=== PATIENT | male | born 1935 | race Caucasian/White ===

== ENCOUNTER 2022-06-17 09:19 | Emergency (ER) | payer MEDICARE, BC, SELFPAY ==
[2022-06-17 09:20] VITALS: BP 152/89; PULSE 118; RESP 14; TEMP 35.9; O2SAT 97; BMI 24.2
--- NOTE | 2022-06-17 09:41 | EKG12_ITS ---
Test Reason : PALP Blood Pressure : / mmHG Vent. Rate : 115 BPM Atrial Rate : 000 BPM P-R Int : 000 ms QRS Dur : 110 ms QT Int : 284 ms P-R-T Axes : 000 089 -44 degrees QTc Int : 392 ms Atrial fibrillation with rapid ventricular response Incomplete right bundle branch block Possible Inferior infarct , age undetermined Abnormal ECG Confirmed by RUY CORONA, CARLOS ([id number]), editor managing newspaper NARENDRA HYMAN ([id number]) on 06/22/2022 11:55:33 AM Referred By: Confirmed By:CARLOS REDMOND MD
[2022-06-17 10:18] LABS: Absolute Lymphocyte Count 0.65 X10^3/uL (0.83-4.51); Absolute Neutrophil Count 5.5 X10^3/uL (2.0-7.7); Basophil# 0.05 X10^3/uL; Basophil% 0.8 % (0-1); Eosinophil# 0.11 X10^3/uL; Eosinophils% 1.7 % (0-5); Hematocrit 38.5 % (40-54); Hemoglobin 12.7 g/dL (13.0-16.5); Lymphocyte # 0.65 X10^3/ul (0.83-4.51); Lymphocyte % 9.8 % (19-41); Mean Corpuscular Hgb 30.8 pg (27.0-32.0); Mean Corpuscular Volume 93.2 fL (80-94); Mean Platelet Vol. 11.4 fl (6.2-12.0); Monocyte# 0.32 X10^3/uL; Monocyte% 4.8 % (0-10); NRBC Flagged by Analyzer 0 % (0-5); Neutrophil # 5.47 X10^3/uL (2.7-7.7); Neutrophil % 82.4 % (47-70); Platelet Count 241 K/mm3 (150-450); RBC Distribution Width CV 15.9 % (11.6-14.6); RBC Distribution Width SD 54.8 fl (35.1-43.9); Red Blood Count 4.13 M/mm3 (4.6-6.2); White Blood Count 6.6 K/mm3 (4.4-11.0)
--- NOTE | 2022-06-17 10:23 | RAD_ITS ---
HISTORY: Orthopnea, pedal edema and bibasilar rales. TECHNIQUE: XR Chest 2 Views. COMPARISON: None. FINDINGS: CARDIOMEDIASTINAL BORDERS: Cardiac silhouette within normal limits in size. Mediastinal contour unremarkable with calcification of the aortic knob. LUNGS: Mild linear opacities in the left mid and bilateral lower lungs. PLEURA: No pleural effusion or pneumothorax seen. OSSEOUS STRUCTURES: Degenerative change with mild dextrocurvature. RAD/Chest PA and Lateral IMPRESSION: Mild linear opacities in the lung bases, likely scarring. Electronically Signed: Brittany Araiza MD at 10:37 EDT ,
--- NOTE | 2022-06-17 10:32 | EX.ED.DYSGE1 ---
HPI History of Present Illness Chief Complaint: Palpitations [facility] Medical History (Updated 06/17/22 @ 11:[address] Gagan Alfaro MD) Colitis HLD (hyperlipidemia) HTN (hypertension) Home Medications Ritoxan 05/27/13 [History Last Taken Unknown] amoxicillin 500 mg capsule 05/27/13 [History Last Taken Unknown] amoxicillin 500 mg tablet 500 mg PO Q8H #30 tabs 05/27/13 [Rx Last Taken Unknown] hydrochlorothiazide 25 mg tablet 25 mg PO DAILY 05/27/13 [History Last Taken Unknown] hydrocodone-acetaminophen 5-325mg 5mg-325mg 1 - 2 tab PO Q4H PRN PRN Pain ##20 05/27/13 [Rx Last Taken Unknown] hydroxychloroquine 200 mg tablet 200 mg PO DAILYCM 05/27/13 [History Last Taken Unknown] lisinopril 10 mg tablet 10 mg PO DAILY 05/27/13 [History Last Taken Unknown] lcnnrvbj-rdi-qphra acid 0.4 mg-lycopene 300 mcg-lutein 250 mcg tablet (Centrum Silver) 1 ea PO 05/27/13 [History Last Taken Unknown] naproxen 500 mg tablet 500 mg PO PRN PRN Pain 05/27/13 [History Last Taken Unknown] sulfasalazine 500 mg tablet 1,000 mg PO DAILY 05/27/13 [History Last Taken Unknown] apixaban 5 mg tablet (Eliquis) 5 mg PO BID #60 tabs 06/17/22 [Rx Last Taken Unknown] metoprolol tartrate 25 mg tablet 25 mg PO BID #60 tabs 06/17/22 [Rx Last Taken Unknown] Allergy/AdvReac Type Severity Reaction Status Date / Time etanercept [From Enbrel] AdvReac Rash Verified 06/17/22 09:20 Surgical History (Updated 06/17/22 @ 10:39 by Jordyn Silveira) History of bilateral knee replacement Social History Smoking Status: Former smoker EXAM Physical Exam Const Vital Signs: 06/17/22 09:20 06/17/22 10:37 06/17/22 10:37 Temperature 96.6 F L Temperature Source Temporal Pulse Rate 118 H 101 H Respiratory Rate 14 16 Respiratory Effort Normal Non-Labored Blood Pressure 152/89 H 129/76 H Blood Pressure Mean 110 93 Pulse Ox 97 95 Oxygen Delivery Method Room Air Room Air 06/17/22 11:01 Temperature Temperature Source Pulse Rate 92 Respiratory Rate 16 Respiratory Effort Blood Pressure 121/80 H Blood Pressure Mean 93 Pulse Ox 93 Oxygen Delivery Method Room Air MDM MDM History & Record Review Discussion w/independent historian: Patient and Family Lab Data Attestation: I reviewed the patient's lab results. Lab results narrative: Hemoglobin is slightly below normal. CB C otherwise unremarkable Labs: Laboratory Results - last 24 hr 06/17/22 06/17/22 06/17/22 10:10 10:10 10:10 WBC 6.6 RBC 4.13 L Hgb 12.7 L Hct 38.5 L MCV 93.2 MCH 30.8 MCHC 33.0 RDW Std Deviation 54.8 H RDW Coeff of Dominick 15.9 H Plt Count 241 MPV 11.4 Immature Gran % (Auto) 0.500 Neut % (Auto) 82.4 H Lymph % (Auto) 9.8 L [place] % (Auto) 4.8 Eos % (Auto) 1.7 Baso % (Auto) 0.8 Absolute Neuts (auto) 5.5 Absolute Lymphs (auto) 0.65 L Nucleated RBC % 0 Sodium 139 Potassium 3.9 Chloride 109 H Carbon Dioxide 26.0 Anion Gap 4 L BUN 27 H Creatinine 1.28 Estim Creat Clear Calc 46.31 Est GFR (MDRD) Af Amer 69 Est GFR (MDRD) Non-Af 57 L BUN/Creatinine Ratio 21.1 H Glucose 142 H Calcium 8.8 Troponin I High Sens 22 B-Natriuretic Peptide 188.0 H Radiography Chest X-Ray - ED: 1 View and Read by ED Physician (Cardiac silhouette size unremarkable. Lung parenchyma is unremarkable. Perihilar regions unremarkable. Osseous structures are unremarkable. This was independent reviewed interpreted by me at 1031.) Diagnostic Testing: Clinical Impression(s) from Imaging Studies Chest X-Ray 06/17/22 10:23 IMPRESSION: Mild linear opacities in the lung bases, likely scarring. Electronically Signed: Brittany Araiza MD at 10:37 EDT , Management Discussion w/another healthcare provider: Corporate Quality Assurance Manager (Discussed case with Dr. Cerda. Agrees with treatment of Eliquis metoprolol and office will contact for appointment.) Treatment and Re-Evaluation :: Patient was reassessed at 1124. Heart rate is 84. Monitor reveals atrial fibrillation. There is no ectopy. Discharge Plan Triage Chief Complaint: Palpitations ED Provider: Gagan Alfaro Dx/Rx/DC Orders Clinical Impression: New onset atrial flutter, Pedal edema, Hypertension Prescriptions: New Eliquis 5 mg tablet 5 mg PO BID Qty: 60 0RF metoprolol tartrate 25 mg tablet 25 mg PO BID Qty: 60 0RF No Action amoxicillin 500 MG capsule Label Comments: TAKES DENTAL PROPHYLAXIS sulfasalazine 500 MG tablet 1,000 mg PO DAILY lisinopril 10 MG tablet 10 mg PO DAILY Label Comments: hydrochlorothiazide 25 MG tablet 25 mg PO DAILY Label Comments: hydroxychloroquine 200 MG tablet 200 mg PO DAILYCM naproxen 500 MG tablet 500 mg PO PRN PRN (Reason: Pain) Label Comments: ocnovqed-ilj-WX-lycopen-lutein [Centrum Silver] 1 EACH tablet 1 ea PO Ritoxan Label Comments: IV INFUSION TWICE YEARLY hydrocodone-acetaminophen 1 TABLET tablet 1 - 2 tab PO Q4H PRN PRN (Reason: Pain) Qty: 20 0RF amoxicillin 500 MG tablet 500 mg PO Q8H Qty: 30 0RF Primary Care Provider: Santino Long Referrals: Petr Powers MD [Med Staff - Active Staff] - 3-5 Days Santino Long MD [Primary Care Provider] - Activity Restrictions/Additional Instructions: 1. Call Dr. Powers's office today for follow-up for additional outpatient testing. 2. Take medication as prescribed 3. You need to stop taking the naproxen and should not take any anti-inflammatory agent. This will increase your chance of bleeding. Disposition Disposition: Home, Self Care
[2022-06-17 10:37] VITALS: BP 129/76; PULSE 101; RESP 16; O2SAT 95
[2022-06-17 10:42] LABS: Anion Gap 4 (5-15); BUN 27 mg/dL (7-18); BUN/Creat Ratio 21.1 RATIO (10-20); Calcium,Total 8.8 mg/dL (8.5-10.1); Chloride 109 mmol/L (98-107); Creatinine, Serum 1.28 mg/dL (0.70-1.30); EST Glomerular Filtration Rate 57 mL/min (>60); Est Glom Filt Rate - Afr Amer 69 mL/min (>60); Estimated Creatinine Clearance 46.31 ml/min; Glucose 142 mg/dL (74-106); Potassium 3.9 mmol/L (3.5-5.1); Sodium Level 139 mmol/L (136-145); Troponin-I HS 22 pg/mL (3.0-78.0)
[2022-06-17] MEDS: Metoprolol Tartrate 5 MG/5 ML Vial IV (10:44)
[2022-06-17 11:01] VITALS: BP 121/80; PULSE 92; RESP 16; O2SAT 93
[2022-06-17] MEDS: APIXABAN 5 MG TABLET PO (11:36)
[2022-06-17 11:37] VITALS: BP 116/74; PULSE 85; RESP 20; O2SAT 94
== END 2022-06-17 11:52 | disposition home or self-care (01) ==
PROVIDERS: Emergency Provider Emergency Medicine; PCP Internal Medicine; Visit Provider Emergency Medicine
DX: I48.92 Unspecified atrial flutter (principal); I48.91 Unspecified atrial fibrillation; R00.2 Palpitations; I10 Essential (primary) hypertension; Z87.891 Personal history of nicotine dependence; R60.0 Localized edema; E78.5 Hyperlipidemia, unspecified; Z79.01 Long term (current) use of anticoagulants
CPT/HCPCS: 71046; 80048; 83880; 84484; 85025; 93005; 96374; 99285; A4216

== ENCOUNTER → 2022-07-05 | Outpatient (CLI) | payer MEDICARE, BC, SELFPAY ==
[2022-07-05 17:58] LABS: AST(SGOT) 24 U/L (15-37); Alanine Aminotransfer ALT/SGPT 29 U/L (16-61); Albumin, Serum 3.3 g/dL (3.2-5.0); Alkaline Phosphatase 77 U/L (45-117); Bilirubin, Direct 0.14 mg/dL (0.00-0.30); Cholesterol 179 mg/dL (200); High Density Lipoprotein 71 mg/dL; Protein, Total 6.3 g/dL (6.4-8.2); Triglycerides 128 mg/dL; Very Low Density Lipoprotein 26 mg/dL (5-40)
== END | disposition home or self-care (01) ==
LOC: LAB 15:47
PROVIDERS: PCP Internal Medicine; Referring Provider Internal Medicine Cardiovascular Disease; Visit Provider Internal Medicine Cardiovascular Disease
DX: I10 Essential (primary) hypertension (principal)
CPT/HCPCS: 36415; 80061; 80076

== ENCOUNTER → 2022-07-29 | Outpatient (CLI) | payer MEDICARE, BC, SELFPAY ==
--- NOTE | 2022-07-29 06:15 | ECHOD_ITS ---
Reason For Study: A fib Procedure This was a 2D Doppler, Color Flow transthoracic echocardiogram. Exam performed in department. Left Ventricle Normal LV size. The estimated ejection fraction is 35 %. There is moderate global hypokinesis of the left ventricle. Right Ventricle Normal RV size. Normal systolic function. Atria The left atrium is mildly enlarged. Normal right atrium. Mitral Valve Normal mitral valve. Moderate (2+) eccentric mitral valve insufficiency. Tricuspid Valve Normal tricuspid valve. Mild to moderate (1-2+) tricuspid valve insufficiency. Aortic Valve Trisinus/trileaflet aortic valve. Mild focal aortic valve thickening. Mild (1+) aortic valve insufficiency. Pulmonic Valve Normal pulmonic valve. Great Vessels Normal aortic root. The pulmonary artery is normal size. Normal inferior vena cava. Pericardium/Pleural No pericardial effusion. MMode/2D Measurements & Calculations RVDd: 4.0 cm LVOT diam: 2.1 cm Ao root diam: 2.9 cm LVOT area: 3.3 cm2 LAV(MOD-bp): 102.3 ml LVAd ap4: 27.4 cm2 LVAd ap2: 32.3 cm2 LAV(MOD-bp) Indexed: 50.5 ml/m2 LVLd ap4: 7.0 cm LVLd ap2: 7.7 cm LAV(MOD-sp2): 111.2 ml EDV(MOD-sp4): 93.6 ml EDV(MOD-sp2): 117.8 ml LAV(MOD-sp4): 80.1 ml EDV(sp4-el): 91.2 ml EDV(sp2-el): 114.2 ml LVAs ap4: 22.3 cm2 LVAs ap2: 24.9 cm2 LVLs ap4: 6.4 cm LVLs ap2: 7.5 cm ESV(MOD-sp4): 65.8 ml ESV(MOD-sp2): 72.3 ml ESV(sp4-el): 65.4 ml ESV(sp2-el): 70.4 ml EF(MOD-sp4): 29.7 % EF(MOD-sp2): 38.6 % EF(sp4-el): 28.3 % SV(MOD-sp4): 27.8 ml SV(MOD-sp2): 45.5 ml SV(sp4-el): 25.8 ml LA A4 area: 23.5 cm2 RA A4 area: 16.8 cm2 TAPSE: 2.1 cm Doppler Measurements & Calculations MV E max acosta: 75.4 cm/sec Lat Peak E' Acosta: 8.7 cm/sec Med Peak E' Acosta: 8.0 cm/sec E/E' lat: 8.7 E/E' med: 9.4 Ao V2 max: 124.4 cm/sec LV V1 max: 95.8 cm/sec PA V2 max: 68.1 cm/sec Ao max P.3 mmHg LV V1 max P.9 mmHg RICHARDSON(V,D): 2.6 cm2 TR max acosta: 282.5 cm/sec TR max P.1 mmHg ECHO/Echo Complete Interpretation Summary Normal LV size. Moderate (2+) eccentric mitral valve insufficiency. Mild to moderate (1-2+) tricuspid valve insufficiency. The estimated ejection fraction is 35 %. Ordering Physician: Petr Powers Referring Physician: Santino Long M.D. Performed By: Oliva Pierre RDCS and Student
--- NOTE | 2022-07-29 09:06 | STRESSREP ---
Stress Test Report Pharmacologic myocardial perfusion stress test. 86-year-old male with a history of atrial fibrillation Resting EKG demonstrates atrial fibrillation with a rate of 112 bpm. Resting blood pressure is 136/78 mmHg. 0.4 mg of regadenoson was infused per usual protocol followed by rapid intravenous saline flush injection. Continuous EKG monitoring was performed. The maximum heart rate was 136 bpm which was 100% of max impacted heart rate the maximum workload was 1 metabolic equivalent. At rest there were no ST or T wave changes noted to suggest ischemia and at peak infusion nonspecific ST changes were noted which did not meet the criteria for ischemia. No clinical angina is noted. The final blood pressure was 124/70 mmHg. Myocardial perfusion protocol. 12.0 mCi of technetium 99m sestamibi was injected at rest. 0.4 mg of regadenoson was infused per usual protocol. At peak infusion 36.0 mCi of technetium 99m sestamibi was injected stress images were obtained stress and rest images were reconstructed and compared in the short axis vertical long and horizontal long axis. Gated images were also obtained. Perfusion SPECT analysis: Review of the stress images demonstrate reduced perfusion noted in the mid anterior wall as well as the basal inferior wall. The other lai appear to be normally perfused. The resting images demonstrate a similar pattern. No obvious ischemia is noted however. Gated SPECT analysis: The gated ejection fraction is 36%. 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 Reduced ejection fraction. Cardiomyopathy present and may explain the above perfusion defects Atrial fibrillation
== END | disposition home or self-care (01) ==
LOC: CVS 06:12
PROVIDERS: PCP Internal Medicine; Referring Provider Internal Medicine Cardiovascular Disease; Visit Provider Internal Medicine Cardiovascular Disease
DX: I48.91 Unspecified atrial fibrillation (principal); R94.31 Abnormal electrocardiogram [ECG] [EKG]
CPT/HCPCS: 78452; 93017; 93306; A9500; A4216; J2785

== ENCOUNTER → 2022-08-06 | Outpatient (CLI) | payer MEDICARE, BC, SELFPAY ==
--- NOTE | 2022-08-06 11:58 | RAD_ITS ---
STUDY: X-RAY CHEST REASON FOR EXAM: Male, 86 years old. SOB TECHNIQUE: PA and lateral views of the chest. COMPARISON: Comparison is made with prior study dated June 17, 2022. FINDINGS: This evidence of CHF with small bilateral pleural effusions and bibasilar atelectasis slightly worse on the right side. There is no demonstrated pleural abnormality. Normal size heart. Normal mediastinum and mk. Normal visualized pulmonary arteries. There is atherosclerotic calcification of the aortic arch with tortuosity. There are diffuse degenerative changes of the visualized thoracic spine. Normal visualized ribs, clavicles, and shoulders. There is no demonstrated abnormality of the visualized soft tissue structures of the upper abdomen. RAD/Chest PA and Lateral IMPRESSION: Findings suggestive of CHF with bibasilar atelectasis and small bilateral effusions worse on the right side. Electronically Signed: Mitesh Kiser MD at 13:28 EDT ,
[2022-08-06 13:31] LABS: Absolute Lymphocyte Count 0.62 X10^3/uL (0.83-4.51); Absolute Neutrophil Count 8.4 X10^3/uL (2.0-7.7); Basophil# 0.04 X10^3/uL; Basophil% 0.4 % (0-1); Eosinophil# 0.01 X10^3/uL; Eosinophils% 0.1 % (0-5); Hematocrit 45.3 % (40-54); Hemoglobin 14.4 g/dL (13.0-16.5); Lymphocyte # 0.62 X10^3/ul (0.83-4.51); Lymphocyte % 6.4 % (19-41); Mean Corp Hgb Conc 31.8 g/dL (32-36); Mean Corpuscular Hgb 31.4 pg (27.0-32.0); Mean Corpuscular Volume 98.9 fL (80-94); Monocyte# 0.65 X10^3/uL; Monocyte% 6.7 % (0-10); NRBC Flagged by Analyzer 0 % (0-5); Neutrophil # 8.36 X10^3/uL (2.7-7.7); Neutrophil % 85.8 % (47-70); Platelet Count 214 K/mm3 (150-450); RBC Distribution Width SD 50.6 fl (35.1-43.9); Red Blood Count 4.58 M/mm3 (4.6-6.2); White Blood Count 9.7 K/mm3 (4.4-11.0)
[2022-08-06 14:06] LABS: BNP,B-Type NATRIURETIC PEPTIDE 1519.6 pg/mL (0-100)
[2022-08-06 14:07] LABS: Anion Gap 10 (5-15); BUN 40 mg/dL (7-18); BUN/Creat Ratio 27.2 RATIO (10-20); Calcium,Total 9.2 mg/dL (8.5-10.1); Chloride 109 mmol/L (98-107); Creatinine, Serum 1.47 mg/dL (0.70-1.30); EST Glomerular Filtration Rate 48 mL/min (>60); Est Glom Filt Rate - Afr Amer 58 mL/min (>60); Glucose 116 mg/dL (74-106); Potassium 4.5 mmol/L (3.5-5.1); Sodium Level 141 mmol/L (136-145)
[2022-08-06 14:09] LABS: Anion Gap 9 (5-15); BUN 40 mg/dL (7-18); BUN/Creat Ratio 26.8 RATIO (10-20); Chloride 110 mmol/L (98-107); Creatinine, Serum 1.49 mg/dL (0.70-1.30); EST Glomerular Filtration Rate 48 mL/min (>60); Est Glom Filt Rate - Afr Amer 58 mL/min (>60); Glucose 116 mg/dL (74-106); Potassium 4.5 mmol/L (3.5-5.1); Sodium Level 141 mmol/L (136-145); T4 Free Direct 1.38 ng/dL (0.76-1.46); Thyroid Stim Hormone (TSH) 2.84 uIU/mL (0.358-3.74)
== END | disposition home or self-care (01) ==
LOC: RAD 11:57
PROVIDERS: Physician Assistant Medical; PCP Internal Medicine; Referring Provider Nurse Practitioner Family; Visit Provider Nurse Practitioner Family
DX: I42.9 Cardiomyopathy, unspecified (principal); I48.91 Unspecified atrial fibrillation; I10 Essential (primary) hypertension; R06.09 Other forms of dyspnea
CPT/HCPCS: 36415; 71046; 80048; 83880; 84439; 84443; 85025

== ENCOUNTER 2022-08-26 07:25 | Day surgery (SDC) | payer MEDICARE, BC, SELFPAY ==
[2022-08-25 10:15] VITALS: BMI 24.5
--- NOTE | 2022-08-26 12:42 | CL.D_ITS ---
Patient Name: LUCINDA HERNANDEZ Study Date: 08/26/2022 Performing: Petr Powers MD Ht: 72 inches 182.88 cm : 1935 Wt: 181 lbs 82.1 kg Age: 86 Gender: male BSA: 2.04 PROCEDURE(S) PERFORMED [id number])LHC/COR/LV CLINICAL PROFILE AND INDICATIONS Indications: Suspected CAD Heart Failure: None Stress/Imaging Date: 07/28/22 CAD Presentations: Other: sob CONCLUSIONS Coronary artery disease with severe single-vessel posterior descending artery lesion out of proportion to the extent of the cardiomyopathy. Atrial fibrillation RECOMMENDATIONS Medical therapy DESCRIPTION OF PROCEDURE The patient arrived to the procedure lab. The risks and benefits of the procedure as well as a full description of our services here and current unavailability of surgical backup were fully explained to the patient and/or their significant other prior to the catheterization. The Timeout was completed, verifying the correct patient and procedure. The patient's procedural site was prepped and draped in the usual fashion. Local anesthetic was given subcutaneously to right radial region with Lidocaine 2%. Using a modified Seldinger technique, arterial access was obtained via the right radial artery, a 6Fr sheath was inserted. Left Coronary Artery selective angiography was performed in multiple views using a 5 Fr. 4.0 [place] catheter. Right Coronary Artery selective angiography was then performed in multiple views using a 5 Fr. 4.0 [place] catheter. Left Ventriculography was performed in SUTTON projection using a 5 Fr. Pigtail catheter. LV to AO pullback pressures were then recorded.The arterial sheath was pulled and a TR Band was applied for hemostasis CORONARY ANGIOGRAPHY DOMINANCE: Right Dominant LEFT HEART ASSESSMENT Left Ventricular Ejection Fraction: by LV Gram 25 % Global Hypokinesis - Severe Depressed Left Ventricular systolic function LEFT MAIN: Mild calcification, Non-obstructive LEFT ANTERIOR DESCENDING ARTERY: MID LAD: Moderate luminal irregularities up to 50% DISTAL LAD: Moderate luminal irregularities up to 50% CIRCUMFLEX ARTERY: Mild luminal irregularities less than 30% RIGHT CORONARY ARTERY: Mild luminal irregularities less than 30% RT PDA: Mid - 70 % Stenosis COMPLICATIONS No Complications PROCEDURE MEDICATIONS Fentanyl 25 mcg IV Versed 0.5 mg IV Versed 0.5 mg IV Oxygen: 2 L/min via nasal cannula Heparin given IA 08/26/2022 10:44:33 Verapamil 2.5mg, Ntg 100mcgs, 3000 units of Heparin given IA 08/26/2022 10:44:33 SUMMARY OF HEMODYNAMIC DATA Time AIR REST ECG 07:55:21 Art 125/78 (96) 10:50:10 AO 142/98 (116) SA 11:00:56 LV 141/16, 17 11:06:17 LV 138/16, 17 11:06:23 LV 135/16, 18 11:07:29 LVp 130/19, 19 11:07:41 AOp 46/-5 (15) 11:07:46 Signed By Petr Powers MD On 08/26/2022 12:41:20 Petr Powers MD
== END 2022-08-26 12:40 | disposition home or self-care (01) ==
LOC: CLSP 07:28
PROVIDERS: PCP Internal Medicine; Referring Provider Internal Medicine Cardiovascular Disease; Visit Provider Internal Medicine Cardiovascular Disease
DX: I25.10 Atherosclerotic heart disease of native coronary artery without angina pectoris (principal); I50.9 Heart failure, unspecified; I11.0 Hypertensive heart disease with heart failure; I48.91 Unspecified atrial fibrillation; Z79.01 Long term (current) use of anticoagulants; Z79.899 Other long term (current) drug therapy; Z87.891 Personal history of nicotine dependence
CPT/HCPCS: 93458; 99152; 99153; J7040; C1769; C1894; Q9967

== ENCOUNTER 2022-09-01 09:58 | Inpatient (IN) | payer MEDICARE, BC, SELFPAY ==
[2022-09-01] VITALS (13 sets, daily range): BP systolic 121–143; BP diastolic 90–115; PULSE 75–115; RESP 15–24; TEMP 36.2–36.8; O2SAT 93–98; BMI 25.0; BMI 21.8; BMI 21.5
--- NOTE | 2022-09-01 10:18 | CT_ITS ---
STUDY: CT HEAD STROKE PROTOCOL W/O CONTRAST INJECTION REASON FOR EXAM: Male, 86 years old. Neuro deficit, acute, stroke suspected RADIATION DOSAGE (If Supplied By Facility): CTDIvol = ( 44.99 ) mGy, DLP = ( 846.73 ) mGycm TECHNIQUE: Transaxial CT imaging of the brain was performed without administration of intravenous contrast material. Individualized dose optimization techniques were used for this CT. COMPARISON: No relevant priors. FINDINGS: Normal soft tissue structures. Normal calvarium. There is mild cerebral atrophy with widening of the extra-axial spaces and ventricular dilatation. There are areas of decreased attenuation within the white matter tracts of the supratentorial brain, consistent with microvascular disease changes. Normal basal ganglia and thalami. Normal brainstem. Normal cerebellum. There is no intracranial hemorrhage. There are no findings of an acute ischemic infarction. Atherosclerotic plaque formation of the cavernous portions of the internal carotid arteries bilaterally. Minimal degree of mucosal thickening of the ethmoid sinuses bilaterally. ASPECT score: 10 CT/STROKE Brain/Head without Cont IMPRESSION: Chronic involutional changes of the brain. N.B. : The above Results were Read Back by Mitesh Kiser MD to Dr Rohit DO, and understanding confirmed on 09/01/2022 10:33:28 (ET). Electronically Signed: Mitesh Kiser MD at 10:34 EDT ,
--- NOTE | 2022-09-01 10:18 | EKG12_ITS ---
Test Reason : NEURO Blood Pressure : / mmHG Vent. Rate : 095 BPM Atrial Rate : 000 BPM P-R Int : 000 ms QRS Dur : 102 ms QT Int : 314 ms P-R-T Axes : 000 -43 096 degrees QTc Int : 394 ms Atrial fibrillation Left axis deviation Minimal voltage criteria for LVH, may be normal variant ( R in aVL ) Septal infarct , age undetermined Abnormal ECG When compared with ECG of 17-JUN-2022 09:29, Significant changes have occurred Confirmed by RUY CORONA, CARLOS ([id number]), editorial writer JESE TAMEZ ([id number]) on 09/06/2022 11:15:27 AM Referred By: MAL Confirmed By:CARLOS REDMOND MD
--- NOTE | 2022-09-01 10:23 | EX.ED.DYSGE1 ---
HPI History of Present Illness Chief Complaint: Neuro S/Sx Narrative Narrative: Patient is a 86-year-old male who is presenting to the ER with chief complaint of stroke symptoms. Patient is a wake-up stroke, patient had to wake him up out of bed at 8:00 this morning. Patient normally gets up at 530/6 AM every day. Patient went to bed at 9:00 last night. Patient at some point had fallen in the middle the night, there was blood found on the carpet, patient has skin tears to bilateral dorsal hands. Patient does not recall falling or know what happened when he fell. Patient is on Eliquis secondary to A-fib. Patient did have a headache this morning, he has taken Tylenol and that is helped with his headache. Patient has no scalp hematoma. No neck pain. Patient's had to wake him up this morning at 8 AM, and when she woke him up he had a decrease sensation to the left side of the face along with slurred speech. Patient was brought to the ER. Patient's had to convince patient to come to the ER, he did not want to initially. is at bedside. Patient is having a hard time using his left hand when on buttoning his pants which is new difficulty for him. At rest it looks like patient has a left facial droop, but when he smiles there is no nasolabial deficits, tongue is midline. Stroke alert was called during initial assessment because patient is a wake-up stroke, he has dexterity difficulties with his left hand and at rest there is minimal left facial droop but it does clear with smiling. [facility] Medical History (Reviewed 08/06/22 @ 10:50 by John Hager [employer], [employer] 9 THRU 12 TEACHER-C) Atrial fibrillation BPH (benign prostatic hyperplasia) Cardiomyopathy Colitis Essential hypertension HTN (hypertension) Hypertension Lung nodules New onset atrial flutter Rheumatoid arthritis Home Medications balsalazide 750 mg capsule 1,500 mg PO TID ULCERATIVE COLITIS 06/23/22 [History Last Taken 09/01/22] hydroxychloroquine 200 mg tablet 400 mg PO .COMPLEX RHEUMATOID ARTHRITIS 06/23/22 [History Last Taken 09/01/22] lisinopril 40 mg tablet 40 mg PO DAILY BLOOD PRESSURE 06/23/22 [History Last Taken 09/01/22] mometasone 0.1 % topical cream 1 applic topical DAILY PRN rash 06/23/22 [History Last Taken Unknown] apixaban 5 mg tablet (Eliquis) 5 mg PO BID BLOOD THINNER #120 tabs 07/05/22 [Rx Last Taken 09/01/22] cholecalciferol (vitamin D3) 125 mcg (5,000 unit) capsule 125 mcg PO DAILY SUPPLEMENT 07/05/22 [History Last Taken 09/01/22] spironolactone 25 mg tablet 25 mg PO DAILY FLUID #30 tabs 08/02/22 [Rx Last Taken 09/01/22] dapagliflozin propanediol 10 mg tablet (Farxiga) 10 mg PO DAILY DIABETES #30 tabs 08/06/22 [Rx Last Taken 09/01/22] metoprolol tartrate 100 mg tablet 100 mg PO BID BLOOD PRESSURE 09/01/22 [History Last Taken 09/01/22] Allergy/AdvReac Type Severity Reaction Status Date / Time etanercept [From Enbrel] AdvReac Rash Verified 09/01/22 10:01 Family History (Reviewed 08/06/22 @ 10:50 by John Hager [employer] 9 [employer]RU 12 TEACHER, HOME TEACH[employer] GRADES 9 THRU 12 TEACHER-C) Mother Diabetes CAD (coronary artery disease) Myocardial infarction, Onset Age: 82 Father CAD (coronary artery disease) Brother CAD (coronary artery disease) Hypertension Surgical History (Reviewed 08/06/22 @ 10:50 by John Hager [employer] 9 THRU 12 TEACHER, [employer]ACH[employer] GR[employer] 9 THRU 12 TEACHER-C) History of arthroscopy of knee History of bilateral cataract extraction History of bilateral knee replacement History of foot surgery History of hernia repair Social History (Updated 09/01/22 @ 14:13 by Bonnie Lacey) housing: house Smoking Status: Former smoker alcohol intake: current details: wine substance use type: does not use ROS ROS ED ROS Narrative REVIEW OF SYSTEMS: Unless otherwise stated in this report the patient's positive and negative responses for review of systems for constitutional, eyes, ENT, cardiovascular, respiratory, gastrointestinal, neurological, , musculoskeletal, and integument systems and related systems to the presenting problem are either stated in the history of present illness or were not pertinent or were negative for the symptoms and/or complaints related to the presenting medical problem. EXAM Physical Exam Narrative Exam Narrative: Vital signs reviewed and patient is not hypoxic. General: The patient appears well and in no apparent distress. Patient is resting comfortably on cart. Not toxic, lethargic, or listless. Skin: Warm, dry, no pallor noted. There is no rash noted. Patient has a couple small skin tears to the dorsal aspect of his bilateral hands, no active bleeding. 1 simple small Band-Aid was initially covering them easily. Head: Normocephalic, atraumatic, no scalp hematoma, patient has no midline or paracervical tenderness to palpation Eye: Normal conjunctiva, no drainage, EOMI. PERRL. Ears, Nose, Mouth, and Throat: oral mucosa is moist. Nares patent. Mouth without vesicles. Cardiovascular: Regular Rate and Rhythm, no murmurs, gallops, or rubs Respiratory: Patient is in no distress, no accessory muscle use, lungs are clear to auscultation, no wheezing, rales or rhonchi Back: non-tender, no CVA tenderness bilaterally to percussion. NO CTLS midline or paraspinal tenderness to palpation. GI: Soft, no tenderness to palpation, no masses appreciated. No rebound, guarding, or rigidity noted. Musculoskeletal: The patient has full range of motion of all extremities and joints with no difficulty. Patient has no motor, no sensory deficits. Neurological: A&O x4, normal speech, patient no longer has slurred speech. No focal neurological deficits. NIH o, but patient has minimal facial droop noted at rest on the left, but it completely clears when patient smiles there is no deficits to left nasolabial fold. Patient no longer has decrease sensation to the left cheek. Psychiatric: Cooperative Const Vital Signs: 09/01/22 09:59 09/01/22 10:24 09/01/22 10:27 Temperature 97.2 F L Temperature Source Temporal Pulse Rate 77 86 Respiratory Rate 16 24 H Respiratory Effort Respiratory Depth Respiratory Pattern Blood Pressure 129/92 H 140/96 H Blood Pressure [BP] Blood Pressure Mean 104 110 Blood Pressure Mean [BP] Blood Pressure Source Blood Pressure Source [BP] Blood Pressure Position Blood Pressure Position [BP] Blood Pressure Location Blood Pressure Location [BP] Pulse Ox 96 96 Oxygen Delivery Method Room Air Room Air 09/01/22 11:00 09/01/22 11:30 09/01/22 10:18 Temperature Temperature Source Pulse Rate 75 94 115 H Respiratory Rate 16 16 18 Respiratory Effort Respiratory Depth Respiratory Pattern Blood Pressure 129/106 H 123/92 H 138/111 H Blood Pressure [BP] Blood Pressure Mean 113 102 120 Blood Pressure Mean [BP] Blood Pressure Source Blood Pressure Source [BP] Blood Pressure Position Blood Pressure Position [BP] Blood Pressure Location Blood Pressure Location [BP] Pulse Ox 95 98 97 Oxygen Delivery Method Room Air Room Air Room Air 09/01/22 12:05 09/01/22 13:00 09/01/22 13:00 Temperature 98.1 F Temperature Source Oral Pulse Rate 89 87 87 Respiratory Rate 21 H 19 H 19 H Respiratory Effort Respiratory Depth Respiratory Pattern Blood Pressure 142/98 H 142/98 H 142/98 H Blood Pressure [BP] Blood Pressure Mean 112 112 112 Blood Pressure Mean [BP] Blood Pressure Source Blood Pressure Source [BP] Blood Pressure Position Blood Pressure Position [BP] Blood Pressure Location Blood Pressure Location [BP] Pulse Ox 93 94 94 Oxygen Delivery Method Room Air Room Air Room Air 09/01/22 13:59 09/01/22 14:38 09/01/22 14:42 Temperature 97.8 F 98 F Temperature Source Oral Oral Pulse Rate 79 92 Respiratory Rate 16 17 Respiratory Effort Normal Non-Labored Respiratory Depth Normal Respiratory Pattern Normal Blood Pressure 136/103 H Blood Pressure [BP] 143/115 H Blood Pressure Mean 114 Blood Pressure Mean [BP] 124 Blood Pressure Source Monitor Blood Pressure Source [BP] Monitor Blood Pressure Position Semi-Fowlers Blood Pressure Position [BP] Semi-Fowlers Blood Pressure Location Left Arm Blood Pressure Location [BP] Left Arm Pulse Ox 96 95 Oxygen Delivery Method Room Air Room Air Room Air MDM MDM MDM Narrative Medical decision making narrative: [address] Nava, stroke neurologist from [facility]. There is no acute findings on the CT of the brain, this was also told to me by a radiologist by telephone call as well. Recommendation is to keep blood pressure less than 180, continue Eliquis, perform CTA of the head neck, no other acute recommendations at this time. CTA of the head and neck showed no acute findings. Patient's blood pressure was elevated on the monitor and storage bin tender, but manual blood pressure was done and it was in the 140s over 90s. Patient will be admitted for further evaluation and stroke evaluation. Patient and had no questions at admission. No significant findings on lab testing. Lab Data Labs: Laboratory Results - last 24 hr 09/01/22 09/01/22 10:19 10:27 WBC 7.3 RBC 4.87 Hgb 14.9 Hct 45.6 MCV 93.6 MCH 30.6 MCHC 32.7 RDW Std Deviation 46.8 H RDW Coeff of Dominick 13.7 Plt Count 238 MPV 11.7 Immature Gran % (Auto) 0.300 Neut % (Auto) 77.2 H Lymph % (Auto) 11.3 L [place] % (Auto) 9.5 Eos % (Auto) 1.1 Baso % (Auto) 0.6 Absolute Neuts (auto) 5.6 Absolute Lymphs (auto) 0.82 L Nucleated RBC % 0 PT 16.2 H INR 1.3 APTT 28.0 Sodium 140 Potassium 4.3 Chloride 109 H Carbon Dioxide 24.0 Anion Gap 7 BUN 22 H Creatinine 1.28 Estim Creat Clear Calc 46.07 Est GFR (MDRD) Af Amer 69 Est GFR (MDRD) Non-Af 57 L BUN/Creatinine Ratio 17.2 Glucose 121 H Calcium 9.1 Troponin I High Sens 31 POC Glucose 118 H Radiography Chest X-Ray - ED: Read by ED Physician (Chest x-ray shows no acute cardial pulm disease, no infiltrate, no effusion) Diagnostic Testing: Clinical Impression(s) from Imaging Studies Brain CT 09/01/22 10:18 IMPRESSION: Chronic involutional changes of the brain. N.B. : The above Results were Read Back by Mitesh Kiser MD to Dr Rohit DO, and understanding confirmed on 09/01/2022 10:33:28 (ET). Electronically Signed: Mitesh Kiser MD at 10:34 EDT , ADDENDUM: 09/01/22 1041 IMPRESSION: Chronic involutional changes of the brain. N.B. : The above Results were Read Back by Mitesh Kiser MD to Dr Rohit DO, and understanding confirmed on 09/01/2022 10:33:28 (ET). Electronically Signed: Mitesh Kiser MD at 10:34 EDT , Head/Neck CTA 09/01/22 10:42 IMPRESSION: Calcific plaques at the origin of the right internal carotid artery causing between 50 and 69% stenosis. Calcific plaques at the origin of the left internal carotid artery causing less than 50% stenosis. Electronically Signed: Mitesh Kiser MD at 12:05 EDT , Chest X-Ray 09/01/22 10:55 IMPRESSION: Mild residual increased markings at the left lung base suggestive of atelectasis and/or residual infiltrate. The right lung is clear. Electronically Signed: Mitesh Kiser MD at 11:14 EDT , EKG Initial EKG: Attestation: I personally reviewed and interpreted this EKG as follows: Comments: EKG interpretation. Irregular irregular rhythm at 95 beats a minute. Left axis deviation. No acute ST elevation, QTc of 394,artifact noted. Critical Care Time Critical Care Time: Yes Critical care time (excluding procedures): 30-74 minutes (Stroke alert was called. Critical care time 33 minutes exclusive from separate billable procedures that were performed. The following was considered in the determination of critical care but not limited to the level of medical decision making, intensive cardiac and/or respiratory monitoring, freque) Discharge Plan Triage Chief Complaint: Neuro S/Sx ED Provider: Mario Bee Dx/Rx/DC Orders Clinical Impression: Atrial fibrillation, TIA (transient ischemic attack) Primary Care Provider: Santino Long Disposition Disposition: Acute Care Hospital [facility]
--- NOTE | 2022-09-01 10:26 | CM.ED ---
Social Work Note Referral Source: Stroke Alert Referral Reason: emotional support SW responded to stroke alert and introduced herself and role to patient's . Patient's was agreeable to speak with SW and reviewed recent events including patient's best friend recently passing. SW provided emotional support and reviewed [facility] response to stroke alert including teleconference with [facility] neurology. SW remains available if additional needs arise. Michelle George ROLLER PRINTER, NANCY
[2022-09-01 10:27] LABS: Absolute Lymphocyte Count 0.82 X10^3/uL (0.83-4.51); Absolute Neutrophil Count 5.6 X10^3/uL (2.0-7.7); Basophil# 0.04 X10^3/uL; Basophil% 0.6 % (0-1); Eosinophil# 0.08 X10^3/uL; Eosinophils% 1.1 % (0-5); Hematocrit 45.6 % (40-54); Hemoglobin 14.9 g/dL (13.0-16.5); Lymphocyte # 0.82 X10^3/ul (0.83-4.51); Lymphocyte % 11.3 % (19-41); Mean Corp Hgb Conc 32.7 g/dL (32-36); Mean Corpuscular Hgb 30.6 pg (27.0-32.0); Mean Corpuscular Volume 93.6 fL (80-94); Mean Platelet Vol. 11.7 fl (6.2-12.0); Monocyte# 0.69 X10^3/uL; Monocyte% 9.5 % (0-10); NRBC Flagged by Analyzer 0 % (0-5); Neutrophil # 5.62 X10^3/uL (2.7-7.7); Neutrophil % 77.2 % (47-70); Platelet Count 238 K/mm3 (150-450); RBC Distribution Width CV 13.7 % (11.6-14.6); RBC Distribution Width SD 46.8 fl (35.1-43.9); Red Blood Count 4.87 M/mm3 (4.6-6.2); White Blood Count 7.3 K/mm3 (4.4-11.0)
--- NOTE | 2022-09-01 10:33 | ED.RN ---
STROKE ALERT 1017. [facility] CONTACTED AT [id number].
--- NOTE | 2022-09-01 10:42 | CT_ITS ---
STUDY: CTA HEAD AND NECK WITH CONTRAST REASON FOR EXAM: Male, 86 years old. cva RADIATION DOSAGE (If Supplied By Facility): CTDIvol = ( 34.00 ) mGy, DLP = ( 797.91 ) mGycm TECHNIQUE: CT angiography was performed with a multi-detector CT scanner. Data acquisition was obtained from the skull base through the vertex following intravenous administration of IV 100mL Isovue-370. MIP images were reconstructed from the axial data set. Post-processing of the angiographic images was performed, with multiplanar reformation and 3D reconstruction. Individualized dose optimization techniques were used for this CT. COMPARISON: No relevant priors. FINDINGS: Normal bilateral petrous carotid arteries. There is calcified plaque formation of the right cavernous carotid artery, without a cross-sectional luminal stenosis. There is calcified plaque formation of the left cavernous carotid artery, without a cross-sectional luminal stenosis. Normal right A1 segments of the anterior cerebral artery. Normal left A1 segments of the anterior cerebral artery. Normal intact anterior communicating artery (ACOM). Normal bilateral A2 segments of the anterior cerebral arteries. Normal right M1 and M2 segments of the middle cerebral arteries, with a normal M1 bifurcation. Normal left M1 and M2 segments of the middle cerebral arteries, with a normal M1 bifurcation. Normal right posterior communicating artery (PCOM). Normal left posterior communicating artery (PCOM). Normal bilateral vertebral arteries. Normal basilar artery with a normal basilar bifurcation. The visualized bilateral superior cerebellar (SCA) arteries are normal. Normal bilateral P1, P2 and visualized P3 segments of the posterior cerebral arteries. There is no demonstrated aneurysm of the [place]. There is no demonstrated abnormality of the visualized brain. AORTIC ARCH: There is atherosclerotic calcific plaque formation of the aortic arch and great vessels arising from the aortic arch, without a hemodynamically significant stenosis. There is a normal origin of the brachiocephalic, left common carotid, and left subclavian arteries. Nonobstructive calcific plaque is seen at the origin of the left subclavian artery. RIGHT CAROTID ARTERIES: Normal right common carotid artery (CCA). Normal right common carotid bulb. There is moderate atherosclerotic plaque formation of the origin of the right internal carotid artery with an estimated stenosis of 50-69% stenosis. Normal visualized cervical portion of the right internal carotid artery. Normal origin of the right external carotid artery (ECA). LEFT CAROTID ARTERIES: Normal left common carotid artery (CCA). Normal left common carotid bulb. There is mild atherosclerotic plaque formation of the origin of the left internal carotid artery with less than 50% cross sectional diameter stenosis. Normal visualized cervical portion of the left internal carotid artery. Normal origin of the left external carotid artery (ECA). VERTEBRAL ARTERIES: Normal bilateral vertebral arteries. CT/CTA Head AND Neck W/ Contrast IMPRESSION: Calcific plaques at the origin of the right internal carotid artery causing between 50 and 69% stenosis. Calcific plaques at the origin of the left internal carotid artery causing less than 50% stenosis. Electronically Signed: Mitesh Kiser MD at 12:05 EDT ,
[2022-09-01 10:45] LABS: Anion Gap 7 (5-15); BUN 22 mg/dL (7-18); BUN/Creat Ratio 17.2 RATIO (10-20); Calcium,Total 9.1 mg/dL (8.5-10.1); Chloride 109 mmol/L (98-107); Creatinine, Serum 1.28 mg/dL (0.70-1.30); EST Glomerular Filtration Rate 57 mL/min (>60); Est Glom Filt Rate - Afr Amer 69 mL/min (>60); Estimated Creatinine Clearance 46.07 ml/min; Glucose 121 mg/dL (74-106); Potassium 4.3 mmol/L (3.5-5.1); Sodium Level 140 mmol/L (136-145); Troponin-I HS 31 pg/mL (3.0-78.0)
[2022-09-01 10:47] LABS: Bedside Glucose 118 mg/dL (74-106)
[2022-09-01 10:47] LABS: International Normalized Ratio 1.3; Prothrombin Time (Protime)PT. 16.2 SECONDS (11.7-14.9)
--- NOTE | 2022-09-01 10:55 | RAD_ITS ---
STUDY: X-RAY CHEST REASON FOR EXAM: Male, 86 years old. Neuro deficit, acute, stroke suspected TECHNIQUE: Single AP portable view of the chest. COMPARISON: Comparison is made with prior study dated 04/08/2022. FINDINGS: EKG electrodes are seen. Mild residual increased markings are seen at the left lung base although there is been a moderate degree of improvement. The previously seen right lower lobe infiltrate and small right effusion have cleared. There is no demonstrated pleural abnormality. Normal size heart. Normal mediastinum and mk. Normal visualized pulmonary arteries. There is atherosclerotic calcification of the aortic arch with tortuosity. There are diffuse degenerative changes of the visualized thoracic spine. Normal visualized ribs, clavicles, and shoulders. There is no demonstrated abnormality of the visualized soft tissue structures of the upper abdomen. RAD/Chest 1 View IMPRESSION: Mild residual increased markings at the left lung base suggestive of atelectasis and/or residual infiltrate. The right lung is clear. Electronically Signed: Mitesh Kiser MD at 11:14 EDT ,
--- NOTE | 2022-09-01 12:08 | ED.RN ---
142/98 WAS RIGHT MANUAL BP
--- NOTE | 2022-09-01 14:02 | CHAPLAIN ---
Type of Pastoral Visit ___ Initial Visit ___ Follow-up Visit ___ On-call Visit ___ General Patient Visit ___ Spiritual Assessment ___ Family Conference ___ Bereavement _x__ Rapid Response ___ Code Blue ___ Other (describe below) Pastoral Care Referral From ___ Patient ___ Family ___ Nurse ___ Physician ___ Medical Laboratory Manager ___ Psychologist Industrial Organizational _x__ Other (describe below) Sacrament/Intervention ___ Active listening ___ Anointing ___ Denominational ___ Bereavement ___ Communion ___ Tresa exploration ___ ___ Life review ___ Prayer ___ Reconciliation ___ Sacrament of Sick _x__ Supportive presence ___ Wedding ___ Other (describe below) Pastoral Comments responded to the stroke alert; met with spouse and introduced self and role of support; spouse indicates that we are fine spiritually, my just lost his best friend; introduced self to patient when he returned from CT and offered presence; pt is responding well and medical team continued to evaluate; reported findings to SW; no other needs apparent at this time
--- NOTE | 2022-09-01 15:07 | ECHOLC_ITS ---
Reason For Study: TIA/CVA Procedure This was a limited 2D transthoracic echocardiogram. Contrast injection was performed. Exam performed portable in patient room. Left Ventricle Normal LV size. Mild eccentric left ventricular hypertrophy. Moderate global left ventricular systolic dysfunction. The estimated ejection fraction is 30 %. Right Ventricle Normal RV size. Normal systolic function. Atria The left atrium is mildly enlarged. Normal right atrium. Bubble contrast study negative for right to left interatrial shunt. Mitral Valve The mitral valve is structurally normal. No prolapse or stenosis seen. Moderate (2+) mitral valve insufficiency. Tricuspid Valve Normal tricuspid valve. Mild to moderate (1-2+) tricuspid valve insufficiency. Right ventricular systolic pressure estimated to be 49 mmHg. Moderate pulmonary hypertension. Aortic Valve Mild focal aortic valve thickening. Trisinus/trileaflet aortic valve. Mild (1+) aortic valve insufficiency. Pulmonic Valve The pulmonic valve is not well visualized. Great Vessels Normal aortic root. Pericardium/Pleural No pericardial effusion. Medication Performed a rapid injection of agitated mix of 9 cc saline and 1cc air to assess for atrial septal defect. Diluted definity 2ml given slow IV push to enhance endocardial definition. MMode/2D Measurements & Calculations LVIDd: 5.2 cm IVSd: 1.2 cm LVIDs: 4.4 cm LVPWd: 1.1 cm LVAd ap4: 36.8 cm2 FS: 15.0 % LVLd ap4: 7.1 cm EDV(MOD-sp4): 153.6 ml EDV(sp4-el): 160.6 ml LVAs ap4: 29.6 cm2 LVLs ap4: 6.6 cm ESV(MOD-sp4): 109.8 ml ESV(sp4-el): 112.6 ml EF(MOD-sp4): 28.5 % EF(sp4-el): 29.9 % SV(MOD-sp4): 43.8 ml SV(sp4-el): 48.0 ml Doppler Measurements & Calculations TR max genesis: 289.8 cm/sec TR max P.6 mmHg ECHO/Echo Limited w/Contrast Interpretation Summary Moderate global left ventricular systolic dysfunction. The estimated ejection fraction is 30 %. The left atrium is mildly enlarged. Moderate (2+) mitral valve insufficiency. Mild to moderate (1-2+) tricuspid valve insufficiency. Right ventricular systolic pressure estimated to be 49 mmHg. Mild (1+) aortic valve insufficiency. Bubble contrast study negative for right to left interatrial shunt. No significant changes from previous echo 07/29/2022 The study was technically di fficult. Contrast injection was performed. Ordering Physician: Sudheer Liz Referring Physician: Santino Long Performed By: Concepción Hager, RDCS, RVT
--- NOTE | 2022-09-01 15:07 | MRI_ITS ---
We are attempting to reach an attending provider to discuss findings. An addendum with communication details will be sent when the communication is complete. EXAM: MR HEAD WITHOUT INTRAVENOUS CONTRAST CLINICAL INDICATION: CVA, facial numbness, slurred speech TECHNIQUE: Multiplanar and multisequence MR images of the brain were obtained without intravenous contrast. COMPARISON: No relevant prior studies available. FINDINGS: BRAIN AND EXTRA-AXIAL SPACES: Peripheral cortical areas of restricted diffusion involve the right temporal and occipital lobes. Additional 4 to 5 mm foci of restricted diffusion within the right frontal and both parietal lobes. Increased T2 signal intensity within the cerebral white matter suggestive of chronic microvascular change. Prominence of the cortical sulci and ventricles related to volume loss change. No acute hemorrhage or mass effect. No evidence of acute infarct. There is preservation of the davies/white matter interface. Posterior fossa structures are unremarkable. Basal cisterns are patent. SELLA: Normal. Normal sella turcica, pituitary gland, infundibular stalk, optic chiasm and hypothalamus. AUDITORY SYSTEM: Normal. The internal auditory canals are patent. BONES/JOINTS: Intact calvarium. SINUSES: Unremarkable as visualized. Clear. MASTOID AIR CELLS: Unremarkable as visualized. Clear. ORBITS: Unremarkable as visualized. Both globes, extraocular muscles, optic nerves and retrobulbar fat appear unremarkable. VASCULATURE: Unremarkable as visualized. Normal flow voids in the major intracranial circulation. MRI/Brain without Contrast IMPRESSION: Multiple focal areas of restricted diffusion within both cerebral hemispheres indicative of acute ischemic change some or all of which may represent watershed ischemia. Electronically Signed: Royce Robles MD at 14:09 EDT ,
[2022-09-01 16:27] LABS: Troponin-I HS 21 pg/mL (3.0-78.0)
--- NOTE | 2022-09-01 17:40 | PCM.HP.STD ---
[facility] - General General Date of Admission: 09/01/22 Date of Service: 09/01/22 Chief Complaint: weakness. slurred speech. HPI Narrative LUCINDA HERNANDEZ, is a 86 M who presents presents with left hand weakness and slurred speech. At some point in the nights patient had fallen onto the floor and hit his hands. Was seen by his later and noted to have bleeding on his hands and blood was noted on the floor. His speech was slurred and he was having difficulty with articulation of his left hand. The symptoms resolved by the time he arrived at the emergency room. Patient does take apixaban for atrial fibrillation and has been compliant with that. Patient did recently undergo a left heart catheterization back on August 27 and his apixaban was held prior to that. Patient has never had a stroke before. [facility] Medical History Atrial fibrillation BPH (benign prostatic hyperplasia) Cardiomyopathy Colitis Essential hypertension HTN (hypertension) Hypertension Lung nodules New onset atrial flutter Rheumatoid arthritis Home Medications balsalazide 750 mg capsule 1,500 mg PO TID ULCERATIVE COLITIS 06/23/22 [History Last Taken 09/01/22] hydroxychloroquine 200 mg tablet 400 mg PO .COMPLEX RHEUMATOID ARTHRITIS 06/23/22 [History Last Taken 09/01/22] lisinopril 40 mg tablet 40 mg PO DAILY BLOOD PRESSURE 06/23/22 [History Last Taken 09/01/22] mometasone 0.1 % topical cream 1 applic topical DAILY PRN rash 06/23/22 [History Last Taken Unknown] apixaban 5 mg tablet (Eliquis) 5 mg PO BID BLOOD THINNER #120 tabs 07/05/22 [Rx Last Taken 09/01/22] cholecalciferol (vitamin D3) 125 mcg (5,000 unit) capsule 125 mcg PO DAILY SUPPLEMENT 07/05/22 [History Last Taken 09/01/22] spironolactone 25 mg tablet 25 mg PO DAILY FLUID #30 tabs 08/02/22 [Rx Last Taken 09/01/22] dapagliflozin propanediol 10 mg tablet (Farxiga) 10 mg PO DAILY DIABETES #30 tabs 08/06/22 [Rx Last Taken 09/01/22] metoprolol tartrate 100 mg tablet 100 mg PO BID BLOOD PRESSURE 09/01/22 [History Last Taken 09/01/22] Allergy/AdvReac Type Severity Reaction Status Date / Time etanercept [From Enbrel] AdvReac Rash Verified 09/01/22 10:01 Family History Mother Diabetes CAD (coronary artery disease) Myocardial infarction, Onset Age: 82 Father CAD (coronary artery disease) Brother CAD (coronary artery disease) Hypertension Surgical History History of arthroscopy of knee History of bilateral cataract extraction History of bilateral knee replacement History of foot surgery History of hernia repair Social History housing: house Smoking Status: Former smoker alcohol intake: current details: wine substance use type: does not use ROS ROS Narrative Patient did develop some skin tears and bruising on his arms from his fall. He has no recollection of the event. All review of systems were negative except as mentioned above in the history of present illness and the other review of systems. Vital Signs Vital Signs Vital Signs: 09/01/22 09:59 09/01/22 10:24 09/01/22 10:27 Temperature 36.2 C L Temperature Source Temporal Pulse Rate 77 86 Respiratory Rate 16 24 H Respiratory Effort Respiratory Depth Respiratory Pattern Blood Pressure 129/92 H 140/96 H Blood Pressure [BP] Blood Pressure Mean 104 110 Blood Pressure Mean [BP] Blood Pressure Source Blood Pressure Source [BP] Blood Pressure Position Blood Pressure Position [BP] Blood Pressure Location Blood Pressure Location [BP] Pulse Ox 96 96 Oxygen Delivery Method Room Air Room Air 09/01/22 11:00 09/01/22 11:30 09/01/22 10:18 Temperature Temperature Source Pulse Rate 75 94 115 H Respiratory Rate 16 16 18 Respiratory Effort Respiratory Depth Respiratory Pattern Blood Pressure 129/106 H 123/92 H 138/111 H Blood Pressure [BP] Blood Pressure Mean 113 102 120 Blood Pressure Mean [BP] Blood Pressure Source Blood Pressure Source [BP] Blood Pressure Position Blood Pressure Position [BP] Blood Pressure Location Blood Pressure Location [BP] Pulse Ox 95 98 97 Oxygen Delivery Method Room Air Room Air Room Air 09/01/22 12:05 09/01/22 13:00 09/01/22 13:00 Temperature 36.7 C Temperature Source Oral Pulse Rate 89 87 87 Respiratory Rate 21 H 19 H 19 H Respiratory Effort Respiratory Depth Respiratory Pattern Blood Pressure 142/98 H 142/98 H 142/98 H Blood Pressure [BP] Blood Pressure Mean 112 112 112 Blood Pressure Mean [BP] Blood Pressure Source Blood Pressure Source [BP] Blood Pressure Position Blood Pressure Position [BP] Blood Pressure Location Blood Pressure Location [BP] Pulse Ox 93 94 94 Oxygen Delivery Method Room Air Room Air Room Air 09/01/22 13:59 09/01/22 14:38 09/01/22 14:42 Temperature 36.6 C 36.6 C Temperature Source Oral Oral Pulse Rate 79 92 Respiratory Rate 16 17 Respiratory Effort Normal Non-Labored Respiratory Depth Normal Respiratory Pattern Normal Blood Pressure 136/103 H Blood Pressure [BP] 143/115 H Blood Pressure Mean 114 Blood Pressure Mean [BP] 124 Blood Pressure Source Monitor Blood Pressure Source [BP] Monitor Blood Pressure Position Semi-Fowlers Blood Pressure Position [BP] Semi-Fowlers Blood Pressure Location Left Arm Blood Pressure Location [BP] Left Arm Pulse Ox 96 95 Oxygen Delivery Method Room Air Room Air Room Air 09/01/22 15:42 Temperature Temperature Source Pulse Rate Respiratory Rate Respiratory Effort Respiratory Depth Respiratory Pattern Blood Pressure Blood Pressure [BP] Blood Pressure Mean Blood Pressure Mean [BP] Blood Pressure Source Blood Pressure Source [BP] Blood Pressure Position Blood Pressure Position [BP] Blood Pressure Location Blood Pressure Location [BP] Pulse Ox 95 Oxygen Delivery Method Room Air Weight Weight: 76.2 kg Body Mass Index (BMI) 21.5 Physical Exam Const alert and no apparent distress HEENT normocephalic and head/scalp atraumatic Eyes PERRL and EOMs intact bilaterally Neck no lymphadenopathy Resp normal respiratory effort, no retractions, no use of accessory muscles and clear to auscultation bilaterally Cardio regular rate, regular rhythm, S1 normal heart sound and S2 normal heart sound GI normal to inspection, nondistended, normoactive bowel sounds, soft to palpation, non-tender and non-distended Extremity normal to inspection and full ROM Skin Skin Narrative: Superficial skin tears and dorsum of bilateral hands. Neuro oriented x3, CN's II-XII intact bilaterally, moves all extremities and no focal motor deficits Sensorium / Orientation: awake and alert Coordination / Balance: [id number] test normal Speech: speech normal Psych affect normal Results Lab / Micro Data Attestation: I reviewed the patient's lab results. 09/01/22 10:19 09/01/22 10:19 Labs: Laboratory Results - last 24 hr 09/01/22 10:19: WBC 7.3, RBC 4.87, Hgb 14.9, Hct 45.6, MCV 93.6, MCH 30.6, MCHC 32.7, RDW Std Deviation 46.8 H, RDW Coeff of Dominick 13.7, Plt Count 238, MPV 11.7, Immature Gran % (Auto) 0.300, Neut % (Auto) 77.2 H, Lymph % (Auto) 11.3 L, [place] % (Auto) 9.5, Eos % (Auto) 1.1, Baso % (Auto) 0.6, Absolute Neuts (auto) 5.6, Absolute Lymphs (auto) 0.82 L, Nucleated RBC % 0, PT 16.2 H, INR 1.3, APTT 28.0, Sodium 140, Potassium 4.3, Chloride 109 H, Carbon Dioxide 24.0, Anion Gap 7, BUN 22 H, Creatinine 1.28, Estim Creat Clear Calc 46.07, Est GFR (MDRD) Af Amer 69, Est GFR (MDRD) Non-Af 57 L, BUN/Creatinine Ratio 17.2, Glucose 121 H, Calcium 9.1, Troponin I High Sens 31 09/01/22 10:27: POC Glucose 118 H 09/01/22 15:37: Troponin I High Sens [address] 09/01/22 10:18 IMPRESSION: Chronic involutional changes of the brain. N.B. : The above Results were Read Back by Mitesh Kiser MD to Dr Rohit DO, and understanding confirmed on 09/01/2022 10:33:28 (ET). Electronically Signed: Mitesh Kiser MD at 10:34 EDT , ADDENDUM: 09/01/22 1041 IMPRESSION: Chronic involutional changes of the brain. N.B. : The above Results were Read Back by Mitesh Kiser MD to Dr Bee DO, and understanding confirmed on 09/01/2022 10:33:28 (ET). Electronically Signed: Mitesh Kiser MD at 10:34 EDT , Head/Neck CTA 09/01/22 10:42 IMPRESSION: Calcific plaques at the origin of the right internal carotid artery causing between 50 and 69% stenosis. Calcific plaques at the origin of the left internal carotid artery causing less than 50% stenosis. Electronically Signed: Mitesh Kiser MD at 12:05 EDT , Chest X-Ray 09/01/22 10:55 IMPRESSION: Mild residual increased markings at the left lung base suggestive of atelectasis and/or residual infiltrate. The right lung is clear. Electronically Signed: Mitesh Kiser MD at 11:14 EDT , Assessment & Plan Assessment/Plan (1) TIA (transient ischemic attack): PLAN: Suspected Other possibilities could been a fall with concussion. Possibilities and less likely would be a seizure. Patient certainly at risk as he does have known atrial fibrillation. Has been compliant with his apixaban though he had stopped his apixaban in anticipation of left heart catheterization last week. Echo MRI PT OT PLAN: Plan Chronic conditions Atrial fibrillation: Continue with apixaban Nonischemic cardiomyopathy: Patient recent underwent a left heart catheterization showed nonobstructive coronary artery disease. Hypertension: Resume lisinopril, metoprolol and spironolactone on the Rheumatoid arthritis: Continue with hydroxychloroquine. Ulcerative colitis: Continue with balsalazide VTE prophylaxis: Low risk as he is already anticoagulated. Case cussed with the patient's at bedside. Charges/Coding Visit Charges Inpatient E&M: 80619 Init Hosp L3
[2022-09-01 19:06] LABS: Bedside Glucose 166 mg/dL (74-106)
[2022-09-01] MEDS: APIXABAN 5 MG TABLET PO (21:37)
[2022-09-01] MEDS: BALSALAZIDE DISODIUM 750 MG CAPSULE 1500 MG PO (21:37)
[2022-09-01 22:01] LABS: Bedside Glucose 96 mg/dL (74-106)
[2022-09-02 01:37] VITALS: BP 142/111; PULSE 120; RESP 18; TEMP 36.9; O2SAT 94
[2022-09-02 06:00] VITALS: BP 137/105; PULSE 120; RESP 18; TEMP 36.6; O2SAT 94
[2022-09-02] MEDS: BALSALAZIDE DISODIUM 750 MG CAPSULE 1500 MG PO ×2 (06:23→15:03)
[2022-09-02 06:52] LABS: Bedside Glucose 115 mg/dL (74-106)
[2022-09-02 06:56] LABS: Cholesterol 159 mg/dL (200); High Density Lipoprotein 63 mg/dL; Triglycerides 110 mg/dL; Very Low Density Lipoprotein 22 mg/dL (5-40)
[2022-09-02] MEDS: APIXABAN 5 MG TABLET PO (08:13)
[2022-09-02] MEDS: Lisinopril 40 MG Tablet PO (08:13)
[2022-09-02] MEDS: Aspirin 81 MG TAB.CHEW PO (08:13)
[2022-09-02] MEDS: Cholecalciferol (Vit D3) 125 MCG CAPSULE (5,000 UNITS) PO (08:13)
[2022-09-02] MEDS: Empagliflozin 25 MG Tablet PO (08:14)
[2022-09-02] MEDS: Spironolactone 25 MG Tablet PO (08:14)
[2022-09-02 08:53] VITALS: BP 137/105; PULSE 142
[2022-09-02] MEDS: Metoprolol Tartrate 100 MG Tablet PO (08:53)
--- NOTE | 2022-09-02 09:07 | PCM.PN.HOSP ---
Reason for Visit Reason for Visit: Diagnoses Transient cerebral ischemic attack, unspecified (09/01/22) Subjective Subjective Feels well. No events. Objective Data Objective Data Vital Signs: Vital Signs Temp Pulse Resp BP Pulse Ox O2 Del Method 36.6 C 142 H 18 137/105 H 94 Room Air 09/02/22 06:00 09/02/22 08:53 09/02/22 06:00 09/02/22 08:53 09/02/22 06:00 09/02/22 08:05 Oxygen Delivery Method Room Air Weight: 76.2 kg Body Mass Index (BMI) 21.5 Intake & Output: Intake and Output for Last 24 Hours 08/31/22 09/01/22 09/02/22 23:59 23:59 23:59 Intake Total 615 / 615 Balance 615 / 615 Lab / Micro Data 09/01/22 10:19 09/01/22 10:19 Labs: Laboratory Results - last 24 hr 09/01/22 10:19: WBC 7.3, RBC 4.87, Hgb 14.9, Hct 45.6, MCV 93.6, MCH 30.6, MCHC 32.7, RDW Std Deviation 46.8 H, RDW Coeff of Dominick 13.7, Plt Count 238, MPV 11.7, Immature Gran % (Auto) 0.300, Neut % (Auto) 77.2 H, Lymph % (Auto) 11.3 L, [place] % (Auto) 9.5, Eos % (Auto) 1.1, Baso % (Auto) 0.6, Absolute Neuts (auto) 5.6, Absolute Lymphs (auto) 0.82 L, Nucleated RBC % 0, PT 16.2 H, INR 1.3, APTT 28.0, Sodium 140, Potassium 4.3, Chloride 109 H, Carbon Dioxide 24.0, Anion Gap 7, BUN 22 H, Creatinine 1.28, Estim Creat Clear Calc 46.07, Est GFR (MDRD) Af Amer 69, Est GFR (MDRD) Non-Af 57 L, BUN/Creatinine Ratio 17.2, Glucose 121 H, Calcium 9.1, Troponin I High Sens 31 09/01/22 10:27: POC Glucose 118 H 09/01/22 15:37: Troponin I High Sens 21 09/01/22 18:43: POC Glucose 166 H 09/01/22 21:42: POC Glucose 96 09/02/22 05:48: Triglycerides 110, Cholesterol 159, LDL Cholesterol 74, VLDL Cholesterol 22, HDL Cholesterol 63 09/02/22 06:29: POC Glucose 115 H Radiography Diagnostic Testing: Radiology Impression Brain CT 09/01/22 10:18 IMPRESSION: Chronic involutional changes of the brain. N.B. : The above Results were Read Back by Mitesh Kiser MD to Dr Rohit DO, and understanding confirmed on 09/01/2022 10:33:28 (ET). Electronically Signed: Mitesh Kiser MD at 10:34 EDT , ADDENDUM: 09/01/22 1041 IMPRESSION: Chronic involutional changes of the brain. N.B. : The above Results were Read Back by Mitesh Kiser MD to Dr Rohit DO, and understanding confirmed on 09/01/2022 10:33:28 (ET). Electronically Signed: Mitesh Kiser MD at 10:34 EDT , Head/Neck CTA 09/01/22 10:42 IMPRESSION: Calcific plaques at the origin of the right internal carotid artery causing between 50 and 69% stenosis. Calcific plaques at the origin of the left internal carotid artery causing less than 50% stenosis. Electronically Signed: Mitesh Kiser MD at 12:05 EDT , Chest X-Ray 09/01/22 10:55 IMPRESSION: Mild residual increased markings at the left lung base suggestive of atelectasis and/or residual infiltrate. The right lung is clear. Electronically Signed: Mitesh Kiser MD at 11:14 EDT , Physical Exam Const alert and no apparent distress HEENT head/scalp atraumatic Neuro moves all extremities Sensorium / Orientation: awake and alert Assessment & Plan Assessment/Plan (1) TIA (transient ischemic attack): PLAN: Suspected Other possibilities could been a fall with concussion. Possibilities and less likely would be a seizure. Patient certainly at risk as he does have known atrial fibrillation. Has been compliant with his apixaban though he had stopped his apixaban in anticipation of left heart catheterization last week. Echo: EF 30%. RVSP 49mmHg. No shunt. MRI: multiple focal areas of restricted diffusion w/i both cerebral hemispheres indicative of acute ischemic change or all which may represent watershed ischemia. PT OT SOC for recommendations PLAN: Plan Chronic conditions Atrial fibrillation: Continue with apixaban Nonischemic cardiomyopathy: Patient recent underwent a left heart catheterization showed nonobstructive coronary artery disease. Echo showed an EF 30%, unchanged from prior. Hypertension: Resume lisinopril, metoprolol and spironolactone on the Rheumatoid arthritis: Continue with hydroxychloroquine. Ulcerative colitis: Continue with balsalazide VTE prophylaxis: Low risk as he is already anticoagulated. DW patient's at bedside. Charges/Coding Visit Charges Inpatient E&M: 22373 Subs Hosp L2
[2022-09-02 09:22] LABS: Hemoglobin A1c 6.1 % (3.8-5.6)
[2022-09-02 10:00] VITALS: BP 107/82; PULSE 105; RESP 16; TEMP 36.6; O2SAT 95
[2022-09-02 12:00] LABS: Bedside Glucose 104 mg/dL (74-106)
--- NOTE | 2022-09-02 13:20 | CHAPLAIN ---
Type of Pastoral Visit ___ Initial Visit _x__ Follow-up Visit ___ On-call Visit ___ General Patient Visit ___ Spiritual Assessment ___ Family Conference ___ Bereavement ___ Rapid Response ___ Code Blue ___ Other (describe below) Pastoral Care Referral From ___ Patient _x__ Family ___ Nurse ___ Physician ___ Group Worker ___ Gear Shaper Set Up Operator ___ Other (describe below) Sacrament/Intervention _x__ Active listening ___ Anointing ___ Rastafarian ___ Bereavement ___ Communion _x__ Tresa exploration ___ ___ Life review _x__ Prayer ___ Reconciliation ___ Sacrament of Sick _x__ Supportive presence ___ Wedding ___ Other (describe below) Pastoral Comments follow up to patient in stroke alert from yesterday; pt is at MRI but spouse is in the room; talked with spouse who engaged easily with this sustainability communicator; pt has long history in local christian and gives evidence of strong tresa in God; spouse presents with positive attitude; spouse states that they have great support from tresa, family, and friends
[2022-09-02 14:00] VITALS: BP 108/84; PULSE 88; RESP 15; TEMP 36.6; O2SAT 96
--- NOTE | 2022-09-02 15:05 | CASEMGMT ---
RN CM Face to Face with patient for initial transition planning/care coordination assessment. RN CM introduced self and role at [facility]. Patient lying in bed, alert and oriented, at bedside. Patient willing to participate in assessment and is able to answer all questions appropriately. Care providers, pharmacy, and demographics verified. Patient wishes to discharge home, denies need for home health at this time. Patient states he has no further needs or concerns at this time. CM to follow for discharge planning needs that may arise. PCP: Ethan Specialists: Priya lead custodian; RA Luis Bal Pharmacy: [facility] Insurance: [facility] [place] Prescription Benefit: yes Living Will/HPOA: yes, Luigi Arrieta LNOK: Living Arrangements: Patient lives with in a single story home with 1 step to enter. Patient is independent at home. Transportation: self, DME/HHC: Patient has raised toilet, shower chair, and grab bars at home. No previous HHC or SNF. Disposition Plan: Patient to discharge home with family support and follow-up plans in place. Ruthie HANSEN, RN, CM
[2022-09-02 15:46] VITALS: BMI 21.5
--- NOTE | 2022-09-02 16:30 | PCM.DC ---
Discharge Instructions Diet Discharge Diet: Low fat / Low cholesterol Activity Discharge Activity: Return to Normal Activity Dressing / Incision Call your doctor if you observe: Fainting spells and - (unilateral weakness. difficulty speaking. ) Follow Up Care Test Results: Test results from this visit will be discussed in further detail at your follow-up appointment, if applicable. Discharge Plan Admission Admit Date/Time: 09/01/22 14:58 Primary Reason for Your Visit: Stroke Attending Provider: Sudheer Liz Primary Care Provider: Santino Long Discharge Orders/Prescriptions Prescriptions: Continued cholecalciferol (vitamin D3) 125 mcg (5,000 unit) capsule 125 mcg PO DAILY Eliquis 5 mg tablet 5 mg PO BID Qty: 120 3RF spironolactone 25 mg tablet 25 mg PO DAILY Qty: 30 11RF mometasone 0.1 % cream 1 applic topical DAILY PRN (Reason: rash) balsalazide 750 mg capsule 1,500 mg PO TID lisinopril 40 mg tablet 40 mg PO DAILY Farxiga 10 mg tablet 10 mg PO DAILY Qty: 30 12RF hydroxychloroquine 200 mg tablet 400 mg PO .COMPLEX Rx Instructions: 400 mg orally 2 tabs daily except on Tuesday; metoprolol tartrate 100 mg tablet 100 mg PO BID Referrals / Follow Up: [facility] [Provider Group] - Within 2 Weeks Santino Long MD [Primary Care Provider] - Within 2 Weeks Disposition Disposition (needs filled in before D/C Order can be placed): Home, Self Care
--- NOTE | 2022-09-02 16:36 | DS.PCM_ITS ---
Providers Date of Admission: 09/01/22 Primary Care Physician: Dr. Santino Long MD Reason For Visit: CVA Diagnosis Discharge Diagnosis (1) Stroke due to embolism: Status: Acute Code(s): I63.9 - Cerebral infarction, unspecified Plan: Echo: EF 30%. RVSP 49mmHg. No shunt. MRI: multiple focal areas of restricted diffusion w/i both cerebral hemispheres indicative of acute ischemic change or all which may represent watershed ischemia. PT OT DW SOC: embolic from afib. Recommends continuing his current mgmt. No additional work up. Patient had held his apixaban for 4 days prior to his cardiac catheterization on the . Plan Chronic conditions * Atrial fibrillation: Continue with apixaban * Nonischemic cardiomyopathy: Patient recent underwent a left heart catheterization showed nonobstructive coronary artery disease. Echo showed an EF 30%, unchanged from prior. Follow up with cardiology. * Hypertension: Resume lisinopril, metoprolol and spironolactone on the * Rheumatoid arthritis: Continue with hydroxychloroquine. * Ulcerative colitis: Continue with balsalazide VTE prophylaxis: Low risk as he is already anticoagulated. DW patient's at bedside. Medications at Discharge Home Medications balsalazide 750 mg capsule 1,500 mg PO TID ULCERATIVE COLITIS 06/23/22 hydroxychloroquine 200 mg tablet 400 mg PO .COMPLEX RHEUMATOID ARTHRITIS 06/23/22 lisinopril 40 mg tablet 40 mg PO DAILY BLOOD PRESSURE 06/23/22 mometasone 0.1 % topical cream 1 applic topical DAILY PRN rash 06/23/22 apixaban 5 mg tablet (Eliquis) 5 mg PO BID BLOOD THINNER #120 tabs 07/05/22 cholecalciferol (vitamin D3) 125 mcg (5,000 unit) capsule 125 mcg PO DAILY SUPPLEMENT 07/05/22 spironolactone 25 mg tablet 25 mg PO DAILY FLUID #30 tabs 08/02/22 dapagliflozin propanediol 10 mg tablet (Farxiga) 10 mg PO DAILY DIABETES #30 tabs 08/06/22 metoprolol tartrate 100 mg tablet 100 mg PO BID BLOOD PRESSURE 09/01/22 Hospital Course Operations None Procedures 2-D Echocardiogram Summary of Care Provided Minutes Spent on Discharge: 40 Weight / BMI Weight Weight: 76.2 kg Body Mass Index (BMI) 21.5 ABG / Lab / Microbiology Data 09/01/22 10:19 09/01/22 10:19 Laboratory: Laboratory Results - last 24 hr 09/01/22 18:43: POC Glucose 166 H 09/01/22 21:42: POC Glucose 96 09/02/22 05:48: Hemoglobin A1c 6.1 H, Triglycerides 110, Cholesterol 159, LDL Cholesterol 74, VLDL Cholesterol 22, HDL Cholesterol 63 09/02/22 06:29: POC Glucose 115 H 09/02/22 11:34: POC Glucose 104 Radiography Diagnostic Testing: Radiology Impression Brain MRI 09/01/22 15:07 IMPRESSION: Multiple focal areas of restricted diffusion within both cerebral hemispheres indicative of acute ischemic change some or all of which may represent watershed ischemia. Electronically Signed: Royce Robles MD at 14:09 EDT , ADDENDUM: 09/02/22 1425 IMPRESSION: Multiple focal areas of restricted diffusion within both cerebral hemispheres indicative of acute ischemic change some or all of which may represent watershed ischemia. N.B. : Antonieta Holley RN, confirmed on 09/02/2022 14:18:19 (ET) that the referring physician received the results and does not require a verbal communication. Electronically Signed: Royce Robles MD at 14:09 EDT , Echocardiogram 09/01/22 15:07 Interpretation Summary Moderate global left ventricular systolic dysfunction. The estimated ejection fraction is 30 %. The left atrium is mildly enlarged. Moderate (2+) mitral valve insufficiency. Mild to moderate (1-2+) tricuspid valve insufficiency. Right ventricular systolic pressure estimated to be 49 mmHg. Mild (1+) aortic valve insufficiency. Bubble contrast study negative for right to left interatrial shunt. No significant changes from previous echo 07/29/2022 The study was technically difficult. Contrast injection was performed. Ordering Physician: Sudheer Liz Referring Physician: Santino Long Performed By: Concepción Hager, TITA, RVT D/C Instructions Discharge Diet: Low fat / Low cholesterol Call your doctor if you observe: Fainting spells and - (unilateral weakness. difficulty speaking. ) Meaningful Use Info Meaningful Use Diagnoses (Choose all that apply): Ischemic CVA CVA Therapy Assessed for PT,OT and/or ST?: Yes Ischemic Stroke Antithrombotic order at d/c?: No Reason antithrombotic not ordered: Treatment not Indicated Dx of Atrial fib/flutter?: Yes Anticoagulant at discharge?: Yes Statins at discharge?: No Reason Statin not ordered: Treatment not Indicated Primary Dx Acute Ischemic CVA?: Yes Discharge Plan Admission Admit Date/Time: 09/01/22 14:58 Primary Reason for Your Visit: Stroke Attending Provider: Sudheer Liz Primary Care Provider: Santino Long Discharge Orders/Prescriptions Prescriptions: Continued cholecalciferol (vitamin D3) 125 mcg (5,000 unit) capsule 125 mcg PO DAILY Eliquis 5 mg tablet 5 mg PO BID Qty: 120 3RF spironolactone 25 mg tablet 25 mg PO DAILY Qty: 30 11RF mometasone 0.1 % cream 1 applic topical DAILY PRN (Reason: rash) balsalazide 750 mg capsule 1,500 mg PO TID lisinopril 40 mg tablet 40 mg PO DAILY Farxiga 10 mg tablet 10 mg PO DAILY Qty: 30 12RF hydroxychloroquine 200 mg tablet 400 mg PO .COMPLEX Rx Instructions: 400 mg orally 2 tabs daily except on Tuesday; metoprolol tartrate 100 mg tablet 100 mg PO BID Referrals / Follow Up: [facility] [Provider Group] - Within 2 Weeks Santino Long MD [Primary Care Provider] - Within 2 Weeks Disposition Disposition (needs filled in before D/C Order can be placed): Home, Self Care Charges/Coding Visit Charges Inpatient E&M: 89581 Disch Hosp >30min
[2022-09-02 17:10] LABS: Bedside Glucose 109 mg/dL (74-106)
[2022-09-02 17:50] VITALS: BP 128/87; PULSE 105; RESP 14; TEMP 36.6; O2SAT 95
[2022-09-02 18:04] VITALS: BMI 21.5
== END 2022-09-02 18:18 | disposition home or self-care (01) | DRG 65 ==
LOC: ED 12:41 → PCU 15:17
PROVIDERS: Emergency Provider Emergency Medicine; PCP Internal Medicine
DX: I63.89 Other cerebral infarction (principal); I42.8 Other cardiomyopathies; G81.94 Hemiplegia, unspecified affecting left nondominant side; K51.90 Ulcerative colitis, unspecified, without complications; I48.91 Unspecified atrial fibrillation; M06.9 Rheumatoid arthritis, unspecified; I25.10 Atherosclerotic heart disease of native coronary artery without angina pectoris; I10 Essential (primary) hypertension; I65.23 Occlusion and stenosis of bilateral carotid arteries; R29.701 NIHSS score 1; R29.810 Facial weakness; R47.81 Slurred speech; N40.0 Benign prostatic hyperplasia without lower urinary tract symptoms; Z79.01 Long term (current) use of anticoagulants; Z79.899 Other long term (current) drug therapy; Z87.891 Personal history of nicotine dependence
CPT/HCPCS: 36415; 70450; 70496; 70498; 70551; 71045; 80048; 80061; 82962; 83036; 84484; 85025; 85610; 85730; 92610; 93005; 93308; 94762; 97162; 97166; 97802; 99285; Q9957; Q9967; A4216; C8924

== ENCOUNTER → 2022-11-26 | Outpatient (CLI) | payer MEDICARE, BC, SELFPAY ==
--- NOTE | 2022-11-26 08:48 | ECHOLC_ITS ---
Reason For Study: Evaluate EF post GDMT Changes Procedure This was a limited 2D transthoracic echocardiogram. The study was technically difficult. Contrast injection was performed. Exam performed in department. Left Ventricle Normal LV size. The estimated ejection fraction is 25 %. There is severe global hypokinesis of the left ventricle. Right Ventricle Normal RV size. Normal systolic function. Atria The left atrium is mildly enlarged. Normal right atrium. Mitral Valve Normal mitral valve. Tricuspid Valve Normal tricuspid valve. Mild tricuspid valve insufficiency. Pulmonary artery systolic pressure is 24 mmHg. Aortic Valve Trisinus/trileaflet aortic valve. Pulmonic Valve Normal pulmonic valve. Great Vessels Normal aortic root. The pulmonary artery is normal size. Normal inferior vena cava. Pericardium/Pleural No pericardial effusion. Medication 22 gauge I.V. with prn adaptor inserted into right arm. Diluted definity 2ml given slow IV push to enhance endocardial definition. MMode/2D Measurements & Calculations LVIDd: 5.1 cm IVSd: 0.96 cm LA dimension: 4.5 cm LVIDs: 4.5 cm LVPWd: 1.2 cm FS: 12.7 % LVAd ap4: 34.9 cm2 SV(MOD-sp4): 33.8 ml SV(sp4-el): 38.8 ml LVLd ap4: 7.1 cm EDV(MOD-sp4): 137.9 ml EDV(sp4-el): 145.9 ml LVAs ap4: 30.1 cm2 LVLs ap4: 7.2 cm ESV(MOD-sp4): 104.0 ml ESV(sp4-el): 107.1 ml EF(MOD-sp4): 24.5 % EF(sp4-el): 26.6 % Doppler Measurements & Calculations TR max genesis: 226.9 cm/sec TR max P.6 mmHg ECHO/Echo Limited w/Contrast Interpretation Summary Normal LV size. The estimated ejection fraction is 25 %. There is severe global hypokinesis of the left ventricle. Contrast injection was performed. Compared to previous study, the left ventricu lar systolic function is the same.. Ordering Physician: John Hager Referring Physician: John Hager Performed By: Vernon Houston RCS
== END | disposition home or self-care (01) ==
LOC: CVS 08:47
PROVIDERS: PCP Internal Medicine; Referring Provider Nurse Practitioner Family; Visit Provider Nurse Practitioner Family
DX: I42.8 Other cardiomyopathies (principal)
CPT/HCPCS: 93308; Q9957; A4216; C8924

== ENCOUNTER 2022-12-14 10:55 | Day surgery (SDC) | payer MEDICARE, BC, SELFPAY ==
[2022-12-10 12:06] LABS: Anion Gap 5 (5-15); BUN 28 mg/dL (7-18); BUN/Creat Ratio 18.2 RATIO (10-20); Chloride 106 mmol/L (98-107); Creatinine, Serum 1.54 mg/dL (0.70-1.30); EST Glomerular Filtration Rate 46 mL/min (>60); Est Glom Filt Rate - Afr Amer 55 mL/min (>60); Glucose 84 mg/dL (74-106); Potassium 5.1 mmol/L (3.5-5.1); Sodium Level 140 mmol/L (136-145)
[2022-12-13 08:14] VITALS: BMI 21.4
--- NOTE | 2022-12-14 12:26 | PRO.PCM_ITS ---
Procedure Report Date of Procedure: 12/14/22 DC cardioversion. 87-year-old man with a history of nonischemic cardiomyopathy and persistent atrial fibrillation. The patient was brought to the cardiac catheterization lab in the postabsorptive nonsedated state. Patient was seen by Dr. Haile of the critical care division. Informed consent was obtained. Anterior-posterior pads were applied. 4 mg of intravenous etomidate were then administered and then 200 J of synchronized biphasic DC cardioversion energy were applied with prompt r eversal to sinus rhythm. Patient tolerated the procedure well. Conclusion: Successful DC cardioversion from atrial fibrillation to sinus rhythm. Continue as per office protocol.
--- NOTE | 2022-12-14 14:46 | PRO.PCM_ITS ---
Procedure Report Date of Procedure: 12/14/22 CONSCIOUS SEDATION REPORT BRIEF HISTORY OF PRESENT ILLNESS: The patient is an 87-year-old male who presented to [facility] for an elective outpatient cardioversion due to underlying atrial fibrillation. The patient reports no PO intake since midnight, but is currently therapeutic on anticoagulation. The patient does not have a history of RENETTA, but does snore routinely. The patient reports a history of smoking, but denies COPD. The patient denies any recent constitutional symptoms such as fevers, chills, nausea or vomiting. The patient denies previous applicable anesthetic complications. Patient's last known ejection fraction was 25% PHYSICAL EXAMINATION: VITAL SIGNS: Reviewed and were acceptable. GENERAL: The patient is a male, in no apparent distress, speaking in full sentences. HEENT: Normocephalic, atraumatic. Mucous membranes are moist and pink. Good mouth opening noted. Trachea is midline. Good neck mobility. MP I CHEST: S1, S2 irregularly irregular. No murmurs, rubs or gallops were noted. LUNGS: Clear to auscultation bilaterally without appreciable wheezes, rales or rhonchi. ABDOMEN: Soft, nontender, nondistended. Positive bowel sounds. EXTREMITIES: There is no clubbing, cyanosis or edema. ASA Class: II DESCRIPTION OF PROCEDURE: After confirmation of informed consent, the patient's anesthesia plan was reviewed in detail. Etomidate was chosen. Risks and benefits were reviewed and the patient agreed to proceed. At 12:17 PM, the patient was given 4 mg of etomidate. The patient achieved an appropriate level of sedation and received 1 attempt synchronized cardioversion, at [address] Powers at the bedside. This was successful in achieving normal sinus rhythm. The patient was monitored until 12:32 PM, at which time the patient reached their baseline mental status and function. The patient tolerated the procedure well. COMPLICATIONS: None ESTIMATED BLOOD LOSS: None RECOMMENDATIONS: Okay to recover in usual fashion. Procedures Pulmonary [id number]: [id number] Con Sedation
== END 2022-12-14 13:20 | disposition home or self-care (01) ==
PROVIDERS: Nurse Practitioner Family; PCP Internal Medicine; Referring Provider Internal Medicine Cardiovascular Disease; Visit Provider Internal Medicine Cardiovascular Disease
DX: I48.19 Other persistent atrial fibrillation (principal); I42.8 Other cardiomyopathies; I10 Essential (primary) hypertension; Z79.01 Long term (current) use of anticoagulants; Z79.899 Other long term (current) drug therapy; Z87.891 Personal history of nicotine dependence; I25.10 Atherosclerotic heart disease of native coronary artery without angina pectoris
CPT/HCPCS: 36415; 80048; 92960; 93005; J7040

== ENCOUNTER → 2023-04-20 | Outpatient (CLI) | payer MEDICARE, BC, SELFPAY ==
--- NOTE | 2023-04-20 06:44 | ECHOL_ITS ---
Reason For Study: ATRIAL FIBRILLATION Procedure This was a limited 2D transthoracic echocardiogram. Exam performed in department. Left Ventricle Normal LV size. The estimated ejection fraction is 50 %. There is mild global hypokinesis of the left ventricle. Right Ventricle Normal RV size. Normal systolic function. Atria Normal left atrium. Normal right atrium. Mitral Valve Normal mitral valve. Mild (1+) eccentric mitral valve insufficiency. Tricuspid Valve Normal tricuspid valve. Mild to moderate (1-2+) eccentric tricuspid valve insufficiency. Pulmonary artery systolic pressure is 45 mmHg. Aortic Valve Normal aortic valve. Trisinus/trileaflet aortic valve. Mild (1+) aortic valve insufficiency. Pulmonic Valve Normal pulmonic valve. Great Vessels Normal aortic root. The pulmonary artery is normal size. Normal inferior vena cava. Pericardium/Pleural No pericardial effusion. MMode/2D Measurements & Calculations LVIDd: 5.4 cm IVSd: 0.88 cm Ao root diam: 3.3 cm LVIDs: 3.7 cm LVPWd: 1.00 cm RVDd: 3.2 cm FS: 31.6 % LAV(MOD-bp): 68.8 ml LVAd ap4: 26.7 cm2 LVAd ap2: 27.1 cm2 LAV(MOD-bp) Indexed: 33.9 ml/m2 LVLd ap4: 6.9 cm LVLd ap2: 7.1 cm LAV(MOD-sp2): 90.0 ml EDV(MOD-sp4): 83.4 ml EDV(MOD-sp2): 83.6 ml LAV(MOD-sp4): 52.2 ml EDV(sp4-el): 87.0 ml EDV(sp2-el): 87.0 ml LVAs ap4: 17.4 cm2 LVAs ap2: 18.5 cm2 LVLs ap4: 6.0 cm LVLs ap2: 6.8 cm ESV(MOD-sp4): 41.4 ml ESV(MOD-sp2): 42.7 ml ESV(sp4-el): 43.0 ml ESV(sp2-el): 43.2 ml EF(MOD-sp4): 50.3 % EF(MOD-sp2): 48.9 % EF(sp4-el): 50.6 % SV(MOD-sp4): 41.9 ml SV(MOD-sp2): 40.9 ml SV(sp4-el): 44.0 ml LA dimension(2D): 4.5 cm LA A4 area: 19.0 cm2 RA A4 area: 14.4 cm2 TAPSE: 2.0 cm Time Measurements MV dec time: 0.15 sec Doppler Measurements & Calculations MV E max acosta: 58.3 cm/sec Lat Peak E' Acosta: 3.8 cm/sec Med Peak E' Acosta: 5.3 cm/sec MV A max acosta: 55.4 cm/sec E/E' lat: 15.2 E/E' med: 11.0 MV E/A: 1.1 MV dec slope: 382.2 cm/sec2 Ao V2 max: 164.5 cm/sec AI max acosta: 365.7 cm/sec Ao max P.8 mmHg AI max P.5 mmHg Ao V2 mean: 113.6 cm/sec AI dec slope: 145.9 cm/sec2 Ao mean P.8 mmHg AI P1/2t: 734.0 msec Ao V2 VTI: 38.9 cm AV (velocity ratio): 0.89 LV V1 max: 142.9 cm/sec TR max acosta: 316.7 cm/sec LV V1 max P.2 mmHg TR max P.1 mmHg LV V1 mean P.3 mmHg LV V1 mean: 97.3 cm/sec LV V1 VTI: 34.4 cm ECHO/Echo, Limited Study Interpretation Summary Normal LV size. The estimated ejection fraction is 50 %. There is mild global hypokinesis of the left ventricle. Mild (1+) eccentric mitral valve insufficiency. Pulmonary artery systolic pressure is 45 mmHg. Mild (1+) aortic valve insufficiency. Ordering Physician: John Hager/Petr Powers Referring Physician: Santino Long M.D. Performed By: Shivani Arguelles RDCS
--- OUTSIDE RECORDS SUMMARY | 2023-04-20 06:48 | XMS RPT_ITS | CCD ---
Author Name Unknown Address [address] [place] [address] Organization [facility] Care Team Providers Care Solvent Mixer Name Role Phone Ethan CORONA, Santino Guardado Primary Care Provider [phone] SANTINO LONG Primary Care Unavailable GERARDO OTERO Attending Unavailable UMANG GUIDRY Referring Unavailable SHWETA HELMS Admitting Unavailable SHWETA HELMS Attending Unavailable SANTINO LONG Primary Care Unavailable Ethan CORONA, Santino Guardado Primary Care Provider [phone] Santino Long MD Primary Care Provider [phone] SANTINO LONG Primary Care Unavailable YAEN, MARITZA Referring Unavailable ETHAN, SANTINO Guardado Primary Care Unavailable SANTINO LONG Attending Unavailable SANTINO LONG Primary Care Unavailable YASEEN, MARITZA Referring Unavailable ETHAN, SANTINO Guardado Primary Care Unavailable LEIGH ANN, MARITZA Referring Unavailable ETHAN, SANTINO Guardado Primary Care Unavailable YASEENMARITZA Referring Unavailable ETHAN, SANTINO Guardado Primary Care Unavailable ETHAN, SANTINO Guardado Primary Care Unavailable YASEEN, MARITZA Referring Unavailable ETHAN, SANTINO Guardado Primary Care Unavailable ETHAN, SANTINO Guardado Primary Care Unavailable YASEEN, KINJAMEH Referring Unavailable YASEEN, KINJAMEH Referring Unavailable LONG, SANTINO Guardado Primary Care Unavailable ETHAN, SANTINO Guardado Primary Care Unavailable BARBARA GONGORAISTEN Referring Unavailable LONG, SANTINO Guardado Primary Care Unavailable JEREMIAH TANA Referring Unavailable YASEEN, KINJAMEH Referring Unavailable ETHAN, SANTINO Guardado Primary Care Unavailable ETHAN, SANTINO Guardado Primary Care Unavailable YASEEN, ABEBAH Referring Unavailable ETHAN, SANTINO Guardado Primary Care Unavailable YASEEN, MARITZA Referring Unavailable LONG, DARLIN Primary Care Unavailable TANA GONGORA Attending Unavailable LONG, DARLIN Primary Care Unavailable YASEVANIA, MARITZA Attending Unavailable YASEEN, MARITZA Referring Unavailable LONG, DARLIN Primary Care Unavailable LONG, DARLIN Primary Care Unavailable YAANNIA, MARITZA Attending Unavailable LONG, DARLIN Primary Care Unavailable LONG, DARLIN Primary Care Unavailable TANA GONGORA Attending Unavailable TANA GONGORA Referring Unavailable LONG, DARLIN Primary Care Unavailable LONG, DARLIN Primary Care Unavailable YASEEN, MARITZA Referring Unavailable LONG, DARLIN Primary Care Unavailable LONG, DARLIN Attending Unavailable LONG, DARLIN Primary Care Unavailable LONG, DARLIN Attending Unavailable YASEEN, MARITZA Referring Unavailable LONG, DARLIN Primary Care Unavailable LONG, DARLIN Primary Care Unavailable YASEEN, MARITZA Referring Unavailable LONG, DARLIN Primary Care Unavailable TANA GONGORA Attending Unavailable Allergies Allergy Classification Reported Allergen(s) Allergy Type Date of Onset Reaction(s) Facility (20 sources) Etanercept; Translations: [ETANERCEPT] Drug Allergy 10-14-2010 Rash [facility] Work Phone: Medications Current Medications Medication Drug Class(es) Dates Sig (Normalized) Sig (Original) benzonatate 100 mg oral capsule (3 sources) Non-narcotic Antitussive Start: 06-02-2021 End: 06-12-2021 take 2 capsules by mouth every eight hours as needed for cough and cough benzonatate (TESSALON PERLE) 100 mg capsule Indications: Cough Take 2 capsules by mouth three times daily as needed for up to 10 days. 60 capsule 0 06/02/2021 06/12/2021 Active Completed/Discontinued Medications Medication Drug Class(es) Dates Sig (Normalized) Sig (Original) 1 ml abatacept 125 mg/ml prefilled syringe (20 sources) Selective T Cell Costimulation Modulator Start: 05-19-2021 End: 08-17-2021 inject 125 mg by subcutaneous injection every week abatacept (ORENCIA) 125 mg/mL Indications: Rheumatoid arthritis involving multiple sites with positive rheumatoid factor (HCC) , High risk medication use , Long-term use of Plaquenil Inject 125mg (1 syringe) subcutaneously one time a week. 12 mL 0 05/19/2021 08/10/2021 Discontinued Problems Active Problems Problem Classification Problem Date Documented Da te Episodic/Chronic Asthma (20 sources) Mild intermittent asthma; Translations: [Mild intermittent asthma, uncomplicated] Onset: 2 Chronic Cardiac dysrhythmias (20 sources) Atrial fibrillation; Translations: [Unspecified atrial fibrillation] Onset: 3 06-18-2022 Chronic Chronic kidney disease (13 sources) Chronic kidney disease stage 3; Translations: [Stage 3 chronic kidney disease, unspecified whether stage 3a or 3b CKD ([facility])] Onset: 3 10-06-2022 Chronic Coronary atherosclerosis and other heart disease (13 sources) Coronary atherosclerosis; Translations: [Atherosclerotic heart disease of wiyot coronary artery without angina pectoris] Onset: 3 10-06-2022 Chronic Esophageal disorders (20 sources) Gastroesophageal reflux disease; Translations: [Gastro-esophageal reflux disease without esophagitis] Onset: 2 Chronic Essential hypertension (20 sources) Essential hypertension; Translations: [Essential (primary) hypertension] Onset: 6 11-22-2016 Chronic Hyperplasia of prostate (20 sources) Benign prostatic hyperplasia; Translations: [Benign prostatic hyperplasia without lower urinary tract symptoms] Onset: 7 04-21-2017 Chronic Immunity disorders (20 sources) Hypogammaglobulinemia; 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] Onset: 2 Chronic Immunizations and screening for infectious disease (1 source) Vaccination needed; Translations: [Encounter for immunization] Episodic Noninfectious gastroenteritis (7 sources) Collagenous colitis; Translations: [Collagenous colitis] Chronic Nutritional deficiencies (2 sources) Vitamin D deficiency; Translations: [Vitamin D deficiency, unspecified] Onset: 3 Chronic Osteoarthritis (20 sources) Degenerative joint disease involving multiple joints; Translations: [Polyosteoarthritis, unspecified] Onset: 0 04-21-2017 Chronic Osteoporosis (2 sources) Senile osteoporosis; Translations: [Age-related osteoporosis without current pathological fracture] Chronic Other aftercare (4 sources) Taking high risk medication; Translations: [Other custodial (current) drug therapy] Episodic Other diseases of kidney and ureters (3 sources) Renal impairment; Translations: [Disorder of kidney and ureter, unspecified] Episodic Other gastrointestinal disorders (4 sources) Occult blood in stools; Translations: [Other fecal abnormalities] Episodic Other gastrointestinal disorders (4 sources) Diarrhea; Translations: [Diarrhea, unspecified] Episodic Other gastrointestinal disorders (1 source) Other fecal abnormalities; Translations: [Positive fecal occult blood test] Onset: 2 Episodic Other infections; including parasitic (1 source) Disorder due to infection; Translations: [Unspecified infectious disease] Episodic Other lower respiratory disease (3 sources) Cough; Translations: [Cough] Episodic Other lower respiratory disease (1 source) Soft tissue X-ray chest abnormal; Translations: [Solitary pulmonary nodule] Episodic Other lower respiratory disease (2 sources) Multiple nodules of lung; Translations: [Other nonspecific abnormal finding of lung field] Episodic Other lower respiratory disease (1 source) Dyspnea on exertion; Translations: [Shortness of breath] Episodic Other lower respiratory disease (1 source) Dyspnea; Translations: [Dyspnea, unspecified] Episodic Other screening for suspected conditions (not mental disorders or infectious disease) (1 source) CT of chest abnormal; Translations: [Abnormal findings on diagnostic imaging of other specified body structures] Chronic Other upper respiratory disease (20 sources) Chronic rhinitis; Translations: [Chronic rhinitis] Onset: 6 05-11-2005 Chronic Nita-; endo-; and myocarditis; cardiomyopathy (except that caused by tuberculosis or sexually transmitted disease) (14 sources) Cardiomyopathy; Translations: [Cardiomyopathy, unspecified] Onset: 3 10-06-2022 Chronic Residual codes; unclassified (20 sources) Obstructive sleep apnea syndrome; Translations: [Obstructive sleep apnea (adult) (pediatric)] Onset: 2 Chronic Residual codes; unclassified (3 sources) Patient encounter status; Translations: [Encounter for prophylactic measures, unspecified] Episodic Residual codes; unclassified (4 sources) Bilateral lower limb edema; Translations: [Localized edema] Episodic Rheumatoid arthritis and related disease (20 sources) Rheumatoid arthritis of multiple joints; Translations: [Rheumatoid arthritis with rheumatoid factor of multiple sites without organ or systems involvement] Onset: 12-09-201 5 Chronic Past or Other Problems Problem Classification Problem Date Documented Date Episodic/Chronic Allergic reactions (20 sources) Contact dermatitis; Translations: [Unspecified contact dermatitis, unspecified cause] Onset: 05-29-2020 05-29-2020 Episodic Cardiac dysrhythmias (20 sources) Bradycardia; Translations: [Bradycardia, unspecified] Onset: 11-28-2018 11-28-2018 Episodic Deficiency and other anemia (20 sources) Anemia; Translations: [Anemia, unspecified] Onset: 07-06-2021 Episodic Deficiency and other anemia (1 source) Anemia, unspecified; Translations: [Anemia, unspecified type] Onset: 07-06-2021 Episodic Joint disorders and dislocations; trauma-related (20 sources) Subluxation of thumb; Translations: [Subluxation of interphalangeal joint of left thumb, initial encounter] Onset: 12-05-2010 12-05-2010 Episodic Noninfectious gastroenteritis (9 sources) Enteritis of small intestine; Translations: [Noninfective gastroenteritis and colitis, unspecified] Onset: 03-17-2022 Episodic Other aftercare (20 sources) Drug therapy finding; Translations: [Other custodial (current) drug therapy] Onset: 05-25-2017 Episodic Other circulatory disease (13 sources) History of transient ischemic attack; Translations: [Personal history of transient ischemic attack (TIA), and cerebral infarction without residual deficits] Onset: 10-06-2022 10-06-2022 Episodic Other lower respiratory disease (20 sources) Abnormal findings on diagnostic imaging of lung; Translations: [Other nonspecific abnormal finding of lung field] Onset: 07-02-2021 Episodic Other lower respiratory disease (18 sources) Other nonspecific abnormal finding of lung field; Translations: [Other nonspecific abnormal finding of lung field] Onset: 07-02-2021 07-02-2021 Episodic Other non-traumatic joint disorders (1 source) Pain in left hip; Translations: [Pain in left hip] Onset: 04-29-2022 Episodic Pneumonia (except that caused by tuberculosis or sexually transmitted disease) (20 sources) Bacterial pneumonia; Translations: [Unspecified bacterial pneumonia] Onset: 07-06-2021 Episodic Screening and history of mental health and substance abuse codes (20 sources) Ex-smoker; Translations: [Personal history of nicotine dependence] Onset: 07-06-2021 Episodic Spondylosis; intervertebral disc disorders; other back problems (13 sources) Lumbar radiculopathy; Translations: [Radiculopathy, lumbar region] Onset: 10-06-2022 10-06-2022 Episodic Results Test Name Value Interpretation Reference Range Facil ity Vital Signs Date Time Vital Sign Value Performing Clinician Ofelia shaw 02-02-2023 14:32-0500 Body height 182.9 cm Tana Kalka PA-C Work Phone: [facility] 02-02-2023 14:32-0500 Body weight 78.02 kg Tana Kalka PA-C Work Phone: [facility] 02-02-2023 14:32-0500 Diastolic blood pressure 68 mm[Hg] Tana Kalka PA-C Work Phone: [facility] 02-02-2023 14:32-0500 Heart rate 86 /min Tana Kalka PA-C Work Phone: [facility] 02-02-2023 14:32-0500 Systolic blood pressure 122 mm[Hg] Tana Kalka PA-C Work Phone: [facility] 01-24-2023 12:13-0500 Diastolic blood pressure 63 mm[Hg] Treatment Wstr Work Phone: [facility] 01-24-2023 12:13-0500 Heart rate 53 /min Treatment Wstr Work Phone: [facility] 01-24-2023 12:13-0500 Systolic blood pressure 159 mm[Hg] Treatment Wstr Work Phone: [facility] 01-24-2023 07:58-0500 Body temperature 97.11 [degF] Treatment Wstr Work Phone: [facility] 01-24-2023 07:58-0500 Body weight 78.7 kg Treatment Wstr Work Phone: [facility] 12-27-2022 10:48-0500 Body temperature 97.3 [degF] Maritza Bal MD Work Phone: [facility] 12-27-2022 10:48-0500 Body weight 77.66 kg Maritza Bal MD Work Phone: [facility] 12-27-2022 10:48-0500 Diastolic blood pressure 65 mm[Hg] Maritza Bal MD Work Phone: [facility] 12-27-2022 10:48-0500 Heart rate 47 /min Maritza Bal MD Work Phone: [facility] 12-27-2022 10:48-0500 Systolic blood pressure 146 mm[Hg] Maritza Bal MD Work Phone: [facility] 11-19-2022 13:22-0400 Body temperature 97 [degF] Treatment Wstr Work Phone: [facility] 11-19-2022 13:22-0400 Diastolic blood pressure 61 mm[Hg] Treatment Wstr Work Phone: [facility] 11-19-2022 13:22-0400 Heart rate 81 /min Treatment Wstr Work Phone: [facility] 11-19-2022 13:22-0400 Respiratory rate 18 /min Treatment Wstr Work Phone: [facility] 11-19-2022 13:22-0400 SaO2% (BldA) [Mass fraction] 100 % Treatment Wstr Work Phone: [facility] 11-19-2022 13:22-0400 Systolic blood pressure 104 mm[Hg] Treatment Wstr Work Phone: [facility] 10-12-2022 14:44-0400 Body temperature 96.8 [degF] Treatment Wstr Work Phone: [facility] 10-12-2022 14:44-0400 Body weight 75.75 kg Treatment Wstr Work Phone: [facility] 10-12-2022 14:44-0400 Diastolic blood pressure 66 mm[Hg] Treatment Wstr Work Phone: [facility] 10-12-2022 14:44-0400 Heart rate 106 /min Treatment Wstr Work Phone: [facility] 10-12-2022 14:44-0400 Respiratory rate 18 /min Treatment Wstr Work Phone: [facility] 10-12-2022 14:44-0400 Systolic blood pressure 97 mm[Hg] Treatment Wstr Work Phone: [facility] 10-06-2022 08:07-0400 Body height 184.4 cm Santino Long MD Work Phone: [facility] 10-06-2022 08:07-0400 Body weight 76.66 kg Santino Long MD Work Phone: [facility] 10-06-2022 08:07-0400 Diastolic blood pressure 68 mm[Hg] Santino Long MD Work Phone: [facility] 10-06-2022 08:07-0400 Heart rate 92 /min Santino Long MD Work Phone: [facility] 10-06-2022 08:07-0400 Respiratory rate 18 /min Santino Long MD Work Phone: [facility] 10-06-2022 08:07-0400 Systolic blood pressure 104 mm[Hg] Santino Long MD Work Phone: [facility] 08-17-2022 13:25-0400 Body temperature 96.91 [degF] Treatment Wstr Work Phone: [facility] 08-17-2022 13:25-0400 Body weight 77.34 kg Treatment Wstr Work Phone: [facility] 08-17-2022 13:25-0400 Diastolic blood pressure 77 mm[Hg] Treatment Wstr Work Phone: [facility] 08-17-2022 13:25-0400 Heart rate 102 /min Treatment Wstr Work Phone: [facility] 08-17-2022 13:25-0400 Respiratory rate 18 /min Treatment Wstr Work Phone: [facility] 08-17-2022 13:25-0400 Systolic blood pressure 107 mm[Hg] Treatment Wstr Work Phone: [facility] 07-13-2022 14:00-0400 Body weight 80.51 kg Treatment Wstr Work Phone: [facility] 07-13-2022 14:00-0400 Diastolic blood pressure 86 mm[Hg] Treatment Wstr Work Phone: [facility] 07-13-2022 14:00-0400 Heart rate 105 /min Treatment Wstr Work Phone: [facility] 07-13-2022 14:00-0400 Respiratory rate 18 /min Treatment Wstr Work Phone: [facility] 07-13-2022 14:00-0400 SaO2% (BldA) [Mass fraction] 95 % Treatment Wstr Work Phone: [facility] 07-13-2022 14:00-0400 Systolic blood pressure 131 mm[Hg] Treatment Wstr Work Phone: [facility] 07-06-2022 09:47-0400 Body weight 79.33 kg Santino Long MD Work Phone: [facility] 07-06-2022 09:47-0400 Diastolic blood pressure 64 mm[Hg] Santino Long MD Work Phone: [facility] 07-06-2022 09:47-0400 Heart rate 68 /min Santino Long MD Work Phone: [facility] 07-06-2022 09:47-0400 Respiratory rate 12 /min Santino Long MD Work Phone: [facility] 07-06-2022 09:47-0400 Systolic blood pressure 98 mm[Hg] Santino Long MD Work Phone: [facility] 06-15-2022 15:30-0400 Body temperature 97.81 [degF] Treatment Wstr Work Phone: [facility] 06-15-2022 15:30-0400 Diastolic blood pressure 80 mm[Hg] Treatment Wstr Work Phone: [facility] 06-15-2022 15:30-0400 Heart rate 98 /min Treatment Wstr Work Phone: [facility] 06-15-2022 15:30-0400 Respiratory rate 16 /min Treatment Wstr Work Phone: [facility] 06-15-2022 15:30-0400 SaO2% (BldA) [Mass fraction] 99 % Treatment Wstr Work Phone: [facility] 06-15-2022 15:30-0400 Systolic blood pressure 122 mm[Hg] Treatment Wstr Work Phone: [facility] 05-18-2022 15:00-0400 Body temperature 96.6 [degF] Treatment Wstr Work Phone: [facility] 05-18-2022 15:00-0400 Body weight 80.29 kg Treatment Wstr Work Phone: [facility] 05-18-2022 15:00-0400 Diastolic blood pressure 75 mm[Hg] Treatment Wstr Work Phone: [facility] 05-18-2022 15:00-0400 Heart rate 91 /min Treatment Wstr Work Phone: [facility] 05-18-2022 15:00-0400 Respiratory rate 18 /min Treatment Wstr Work Phone: [facility] 05-18-2022 15:00-0400 SaO2% (BldA) [Mass fraction] 100 % Treatment Wstr Work Phone: [facility] 05-18-2022 15:00-0400 Systolic blood pressure 129 mm[Hg] Treatment Wstr Work Phone: [facility] 04-26-2022 15:16-0500 Body height 182.9 cm Tana Gongora PA-C Work Phone: [facility] 04-26-2022 15:16-0500 Body weight 78.02 kg Tana Gongora PA-C Work Phone: [facility] 04-26-2022 15:16-0500 Heart rate 52 /min Tana Gongora PA-C Work Phone: [facility] 03-23-2022 14:47-0500 Body temperature 95.9 [degF] Treatment Wstr Work Phone: [facility] 03-23-2022 14:47-0500 Diastolic blood pressure 76 mm[Hg] Treatment Wstr Work Phone: [facility] 03-23-2022 14:47-0500 Heart rate 52 /min Treatment Wstr Work Phone: [facility] 03-23-2022 14:47-0500 SaO2% (BldA) [Mass fraction] 99 % Treatment Wstr Work Phone: [facility] 03-23-2022 14:47-0500 Systolic blood pressure 168 mm[Hg] Treatment Wstr Work Phone: [facility] 03-17-2022 11:33-0500 Diastolic blood pressure 83 mm[Hg] [place] Work Phone: [facility] 03-17-2022 11:33-0500 Heart rate 56 /min [place] [facility] Work Phone: [facility] 03-17-2022 11:33-0500 SaO2% (BldA) [Mass fraction] 98 % [place] [facility] Work Phone: [facility] 03-17-2022 11:33-0500 Systolic blood pressure 172 mm[Hg] [place] [facility] Work Phone: [facility] 02-23-2022 15:14-0500 Body temperature 97 [degF] Treatment Wstr Work Phone: [facility] 02-23-2022 15:14-0500 Diastolic blood pressure 67 mm[Hg] Treatment Wstr Work Phone: [facility] 02-23-2022 15:14-0500 Heart rate 58 /min Treatment Wstr Work Phone: [facility] 02-23-2022 15:14-0500 SaO2% (BldA) [Mass fraction] 97 % Treatment Wstr Work Phone: [facility] 02-23-2022 15:14-0500 Systolic blood pressure 140 mm[Hg] Treatment Wstr Work Phone: [facility] 01-29-2022 14:15-0500 Diastolic blood pressure 62 mm[Hg] Liliana Older 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 FARM Work Phone: [facility] 01-29-2022 14:15-0500 Respiratory rate 16 /min Liliana Older 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 FARM Work Phone: [facility] 01-29-2022 14:15-0500 Systolic blood pressure 132 mm[Hg] Liliana Older 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 FARM Work Phone: [facility] 01-29-2022 13:49-0500 Body weight 73.03 kg Liliana Older 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 FARM Work Phone: [facility] 01-29-2022 13:49-0500 Heart rate 69 /min Liliana Older 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 FARM Work Phone: [facility] 01-26-2022 13:00-0500 Body temperature 96.69 [degF] Treatment Wstr Work Phone: [facility] 01-26-2022 13:00-0500 Diastolic blood pressure 53 mm[Hg] Treatment Wstr Work Phone: [facility] 01-26-2022 13:00-0500 Heart rate 62 /min Treatment Wstr Work Phone: [facility] 01-26-2022 13:00-0500 Systolic blood pressure 119 mm[Hg] Treatment Wstr Work Phone: [facility] 01-21-2022 13:59-0500 Body height 182.9 cm Tana Gongora PA-C Work Phone: [facility] 01-21-2022 13:59-0500 Body weight 72.76 kg Tana Gongora PA-C Work Phone: [facility] 01-21-2022 13:59-0500 Diastolic blood pressure 72 mm[Hg] Tana Kalka PA-C Work Phone: [facility] 01-21-2022 13:59-0500 Heart rate 61 /min Tana Kalka PA-C Work Phone: [facility] 01-21-2022 13:59-0500 Systolic blood pressure 142 mm[Hg] Tana Kalka PA-C Work Phone: [facility] 12-29-2021 14:00-0500 Body temperature 97.3 [degF] Treatment Wstr Work Phone: [facility] 12-29-2021 14:00-0500 Diastolic blood pressure 72 mm[Hg] Treatment Wstr Work Phone: [facility] 12-29-2021 14:00-0500 Heart rate 55 /min Treatment Wstr Work Phone: [facility] 12-29-2021 14:00-0500 Respiratory rate 18 /min Treatment Wstr Work Phone: [facility] 12-29-2021 14:00-0500 SaO2% (BldA) [Mass fraction] 99 % Treatment Wstr Work Phone: [facility] 12-29-2021 14:00-0500 Systolic blood pressure 152 mm[Hg] Treatment Wstr Work Phone: [facility] 12-04-2021 08:00-0400 Body temperature 97.7 [degF] Umang Guidry MD Work Phone: [facility] 12-04-2021 08:00-0400 Body weight 78.47 kg Umang Guidry MD Work Phone: [facility] 12-04-2021 08:00-0400 Heart rate 70 /min Umang Guidry MD Work Phone: [facility] 12-04-2021 08:00-0400 SaO2% (BldA) [Mass fraction] 98 % Umang Guidry MD Work Phone: [facility] 12-01-2021 14:03-0400 Body temperature 97.2 [degF] Treatment Wstr Work Phone: [facility] 12-01-2021 14:03-0400 Diastolic blood pressure 63 mm[Hg] Treatment Wstr Work Phone: [facility] 12-01-2021 14:03-0400 Heart rate 50 /min Treatment Wstr Work Phone: [facility] 12-01-2021 14:03-0400 Respiratory rate 20 /min Treatment Wstr Work Phone: [facility] 12-01-2021 14:03-0400 Systolic blood pressure 146 mm[Hg] Treatment Wstr Work Phone: [facility] 11-18-2021 12:30-0400 Diastolic blood pressure 62 mm[Hg] Umang Guidry MD Work Phone: [facility] 11-18-2021 12:30-0400 Heart rate 55 /min Umang Guidry MD Work Phone: [facility] 11-18-2021 12:30-0400 Respiratory rate 16 /min Umang Guidry MD Work Phone: [facility] 11-18-2021 12:30-0400 SaO2% (BldA) [Mass fraction] 98 % Umang Guidry MD Work Phone: [facility] 11-18-2021 12:30-0400 Systolic blood pressure 132 mm[Hg] Umang Guidry MD Work Phone: [facility] 11-18-2021 12:25-0400 Body temperature 96.8 [degF] Umang Guidry MD Work Phone: [facility] 11-18-2021 09:54-0400 Body height 182.9 cm Umang Guidry MD Work Phone: [facility] 11-18-2021 09:54-0400 Body weight 77.11 kg Umang Guidry MD Work Phone: [facility] 11-03-2021 14:00-0400 Body temperature 96.91 [degF] Treatment Wstr Work Phone: [facility] 11-03-2021 14:00-0400 Diastolic blood pressure 75 mm[Hg] Treatment Wstr Work Phone: [facility] 11-03-2021 14:00-0400 Heart rate 52 /min Treatment Wstr Work Phone: [facility] 11-03-2021 14:00-0400 Systolic blood pressure 148 mm[Hg] Treatment Wstr Work Phone: [facility] 10-20-2021 09:20-0400 Body height 188 cm Umang Guidry MD Work Phone: [facility] 10-20-2021 09:20-0400 Body temperature 98.01 [degF] Umang Guidry MD Work Phone: [facility] 10-20-2021 09:20-0400 Body weight 78.02 kg Umang Guidry MD Work Phone: [facility] 10-20-2021 09:20-0400 Diastolic blood pressure 58 mm[Hg] Umang Guidry MD Work Phone: [facility] 10-20-2021 09:20-0400 Heart rate 66 /min Umang Guidry MD Work Phone: [facility] 10-20-2021 09:20-0400 SaO2% (BldA) [Mass fraction] 97 % Umang Guidry MD Work Phone: [facility] 10-20-2021 09:20-0400 Systolic blood pressure 108 mm[Hg] Umang Guidry MD Work Phone: [facility] 10-12-2021 11:24-0400 Body weight 78.02 kg Liliana Older 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 FARM Work Phone: [facility] 10-12-2021 11:24-0400 Diastolic blood pressure 62 mm[Hg] Liliana Older 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 [employer]ARM Work Phone: [facility] 10-12-2021 11:24-0400 Heart rate 53 /min Liliana Older 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 [employer]ARM Work Phone: [facility] 10-12-2021 11:24-0400 Respiratory rate 12 /min Liliana Older 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 [employer]ARM Work Phone: [facility] 10-12-2021 11:24-0400 Systolic blood pressure 121 mm[Hg] Liliana Older 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 [employer]ARM Work Phone: [facility] 09-18-2021 10:56-0400 Body height 188 cm Maritza Bal MD Work Phone: [facility] 09-18-2021 10:56-0400 Body temperature 97.11 [degF] Maritza Bal MD Work Phone: [facility] 09-18-2021 10:56-0400 Body weight 80.2 kg Maritza Bal MD Work Phone: [facility] 09-18-2021 10:56-0400 Diastolic blood pressure 59 mm[Hg] Maritza Bal MD Work Phone: [facility] 09-18-2021 10:56-0400 Heart rate 52 /min Maritza Bal MD Work Phone: [facility] 09-18-2021 10:56-0400 Systolic blood pressure 121 mm[Hg] Maritza Bal MD Work Phone: [facility] 09-15-2021 14:58-0400 Body temperature 97.59 [degF] Treatment Wstr Work Phone: [facility] 09-15-2021 14:58-0400 Body weight 80.29 kg Treatment Wstr Work Phone: [facility] 09-15-2021 14:58-0400 Diastolic blood pressure 60 mm[Hg] Treatment Wstr Work Phone: [facility] 09-15-2021 14:58-0400 Heart rate 54 /min Treatment Wstr Work Phone: [facility] 09-15-2021 14:58-0400 SaO2% (BldA) [Mass fraction] 97 % Treatment Wstr Work Phone: [facility] 09-15-2021 14:58-0400 Systolic blood pressure 131 mm[Hg] Treatment Wstr Work Phone: [facility] 09-01-2021 14:43-0400 Body temperature 97.59 [degF] Treatment Wstr Work Phone: [facility] 09-01-2021 14:43-0400 Diastolic blood pressure 69 mm[Hg] Treatment Wstr Work Phone: [facility] 09-01-2021 14:43-0400 Heart rate 52 /min Treatment Wstr Work Phone: [facility] 09-01-2021 14:43-0400 SaO2% (BldA) [Mass fraction] 95 % Treatment Wstr Work Phone: [facility] 09-01-2021 14:43-0400 Systolic blood pressure 161 mm[Hg] Treatment Wstr Work Phone: [facility] 08-28-2021 09:16-0400 Body weight 79.83 kg Santino Long MD Work Phone: [facility] 08-28-2021 09:16-0400 Diastolic blood pressure 60 mm[Hg] Santino Long MD Work Phone: [facility] 08-28-2021 09:16-0400 Heart rate 54 /min Santino Long MD Work Phone: [facility] 08-28-2021 09:16-0400 Respiratory rate 14 /min Santino Long MD Work Phone: [facility] 08-28-2021 09:16-0400 Systolic blood pressure 120 mm[Hg] Santino Long MD Work Phone: [facility] 08-20-2021 10:58-0400 Body temperature 97.11 [degF] Santino Long MD Work Phone: [facility] 08-20-2021 10:58-0400 Body weight 79.83 kg Santino Long MD Work Phone: [facility] 08-20-2021 10:58-0400 Diastolic blood pressure 54 mm[Hg] Santino Long MD Work Phone: [facility] 08-20-2021 10:58-0400 Heart rate 56 /min Santino Long MD Work Phone: [facility] 08-20-2021 10:58-0400 Respiratory rate 16 /min Santino Long MD Work Phone: [facility] 08-20-2021 10:58-0400 Systolic blood pressure 114 mm[Hg] Santino Long MD Work Phone: [facility] 08-06-2021 10:00-0400 Body height 188 cm Libra Leeanne PA-C Work Phone: [facility] 08-06-2021 10:00-0400 Body temperature 97.9 [degF] Libra Leeanne PA-C Work Phone: [facility] 08-06-2021 10:00-0400 Body weight 81.28 kg Libra Leeanne PA-C Work Phone: [facility] 08-06-2021 10:00-0400 Diastolic blood pressure 56 mm[Hg] Libra Leeanne PA-C Work Phone: [facility] 08-06-2021 10:00-0400 Heart rate 56 /min Libra Leeanne PA-C Work Phone: [facility] 08-06-2021 10:00-0400 Respiratory rate 18 /min Libra Leeanne PA-C Work Phone: [facility] 08-06-2021 10:00-0400 SaO2% (BldA) [Mass fraction] 97 % Libra Leeanne PA-C Work Phone: [facility] 08-06-2021 10:00-0400 Systolic blood pressure 112 mm[Hg] Libra Leeanne PA-C Work Phone: [facility] 07-28-2021 10:39-0400 Body height 188 cm Edith Kim MD Work Phone: [facility] 07-28-2021 10:39-0400 Body weight 80.74 kg Edith Kim MD Work Phone: [facility] 07-28-2021 10:39-0400 Diastolic blood pressure 58 mm[Hg] Edith Kim MD Work Phone: [facility] 07-28-2021 10:39-0400 Heart rate 54 /min Edith Kim MD Work Phone: [facility] 07-28-2021 10:39-0400 SaO2% (BldA) [Mass fraction] 99 % Edith Kim MD Work Phone: [facility] 07-28-2021 10:39-0400 Systolic blood pressure 119 mm[Hg] Edith Kim MD Work Phone: [facility] 07-07-2021 08:45-0400 Body height 188 cm Umang Guidry MD Work Phone: [facility] 07-07-2021 08:45-0400 Body temperature 97.2 [degF] Umang Guidry MD Work Phone: [facility] 07-07-2021 08:45-0400 Body weight 81.65 kg Umang Guidry MD Work Phone: [facility] 07-07-2021 08:45-0400 Diastolic blood pressure 56 mm[Hg] Umang Guidry MD Work Phone: [facility] 07-07-2021 08:45-0400 Heart rate 69 /min Umang Guidry MD Work Phone: [facility] 07-07-2021 08:45-0400 SaO2% (BldA) [Mass fraction] 98 % Umang Guidry MD Work Phone: [facility] 07-07-2021 08:45-0400 Systolic blood pressure 114 mm[Hg] Umang Guidry MD Work Phone: [facility] 07-06-2021 08:06-0400 Body height 188 cm Pacc 1 Work Phone: [facility] 07-06-2021 08:06-0400 Body temperature 97.5 [degF] Pacc 1 Work Phone: [facility] 07-06-2021 08:06-0400 Body weight 81.65 kg Pacc 1 Work Phone: [facility] 07-06-2021 08:06-0400 Diastolic blood pressure 58 mm[Hg] Pacc 1 Work Phone: [facility] 07-06-2021 08:06-0400 Heart rate 72 /min Pacc 1 Work Phone: [facility] 07-06-2021 08:06-0400 Respiratory rate 16 /min Pacc 1 Work Phone: [facility] 07-06-2021 08:06-0400 SaO2% (BldA) [Mass fraction] 98 % Pacc 1 Work Phone: [facility] 07-06-2021 08:06-0400 Systolic blood pressure 112 mm[Hg] Pacc 1 Work Phone: [facility] 07-02-2021 08:46-0400 Body weight 80.74 kg Shweta Helms MD Work Phone: [facility] 07-02-2021 08:46-0400 Diastolic blood pressure 58 mm[Hg] Shweta Helms MD Work Phone: [facility] 07-02-2021 08:46-0400 Heart rate 65 /min Shweta Helms MD Work Phone: [facility] 07-02-2021 08:46-0400 Respiratory rate 17 /min Shweta Helms MD Work Phone: [facility] 07-02-2021 08:46-0400 SaO2% (BldA) [Mass fraction] 95 % Shweta Helms MD Work Phone: [facility] 07-02-2021 08:46-0400 Systolic blood pressure 102 mm[Hg] Shweta Helms MD Work Phone: [facility] 06-12-2021 09:13-0400 Body weight 83.01 kg Liliana Older 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 FARM Work Phone: [facility] 06-12-2021 09:13-0400 Diastolic blood pressure 68 mm[Hg] Liliana Older 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 FARM Work Phone: [facility] 06-12-2021 09:13-0400 Heart rate 62 /min Liliana Older 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 FARM Work Phone: [facility] 06-12-2021 09:13-0400 Respiratory rate 12 /min Liliana Older 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 FARM Work Phone: [facility] 06-12-2021 09:13-0400 SaO2% (BldA) [Mass fraction] 99 % Liliana Older 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 FARM Work Phone: [facility] 06-12-2021 09:13-0400 Systolic blood pressure 146 mm[Hg] Liliana Older 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 FARM Work Phone: [facility] 06-09-2021 09:20-0400 Body temperature 98.91 [degF] [facility] 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 FARM Work Phone: [facility] 06-09-2021 09:20-0400 Body weight 84.55 kg Mario [facility] 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 FARM Work Phone: [facility] 06-09-2021 09:20-0400 Diastolic blood pressure 60 mm[Hg] [facility] 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 FARM Work Phone: [facility] 06-09-2021 09:20-0400 Heart rate 70 /min [facility] 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 FARM Work Phone: [facility] 06-09-2021 09:20-0400 Respiratory rate 18 /min Mario [place] 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 FARM Work Phone: [facility] 06-09-2021 09:20-0400 SaO2% (BldA) [Mass fraction] 96 % Mario Pendlebury 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 FARM Work Phone: [facility] 06-09-2021 09:20-0400 Systolic blood pressure 112 mm[Hg] Mario Pendlebury 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 FARM Work Phone: [facility] 06-02-2021 09:43-0400 Body temperature 98.01 [degF] Ivonne Praisler-Wood 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 FARM Work Phone: [facility] 06-02-2021 09:43-0400 Body weight 86.55 kg Ivonne Praisler-Wood 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 FARM Work Phone: [facility] 06-02-2021 09:43-0400 Diastolic blood pressure 68 mm[Hg] Ivonne Praisler-Wood 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 FARM Work Phone: [facility] 06-02-2021 09:43-0400 Heart rate 80 /min Ivonne Praisler-Wood 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 FARM Work Phone: [facility] 06-02-2021 09:43-0400 Respiratory rate 18 /min Ivonne Praisler-Wood 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 FARM Work Phone: [facility] 06-02-2021 09:43-0400 SaO2% (BldA) [Mass fraction] 97 % Ivonne Praisler-Wood 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 FARM Work Phone: [facility] 06-02-2021 09:43-0400 Systolic blood pressure 130 mm[Hg] Ivonne Praisler-Wood 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 FARM Work Phone: [facility] 05-29-2021 10:22-0400 Diastolic blood pressure 64 mm[Hg] Mi Nurse Work Phone: [facility] 05-29-2021 10:22-0400 Heart rate 68 /min Mi Nurse Work Phone: [facility] 05-29-2021 10:22-0400 Systolic blood pressure 126 mm[Hg] Mi Nurse Work Phone: [facility] Encounters Encounter Date Encounter Type Care Provider Facility Start: 04-02-2023 Refill Liliana brock APRN.MANAGER FARM Work Phone: [facility] Procedures Date Procedure Procedure Detail Performing Clinician Start: 03-17-2022 MRI ABD ENTEROG WO/W IVCON Tana Gongora PA-C Work Phone: Start: 03-17-2022 Mri pelvis w/o & w/contrast material Tana Gongora PA-C Work Phone: Start: 11-18-2021 Esophagogastroduodenoscopy transoral diagnostic Umang Guidry MD Work Phone: Start: 11-18-2021 Colonoscopy flx dx w/collj spec when pfrmd Umang Guidry MD Work Phone: Start: 10-28-2021 Dxa bone density study 1/> sites axial skel Maritza Bal MD Work Phone: Start: 09-01-2021 Dup-scan xtr veins complete bilateral study Santino Long MD Work Phone: Start: 08-28-2021 [employer] COVID-19 VACCINE, AGE 12+ YR (CUNHA TOP) Santino Long MD Work Phone: Start: 07-02-2021 PT ED PATIENT INFORMATION Umang elias MD Work Phone: Start: 06-30-2021 Ct thorax w/o contrast material Liliana kimble 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 FARM Work Phone: Plan of Treatment Date Care Activity Detail Author Start: 12-27-2025 Diabetes Screening Diabetes Screening [facility] Start: 04-29-2025 DIABETES SCREEN DIABETES SCREEN [facility] Start: 04-29-2025 Diabetes Screening Diabetes Screening [facility] Start: 02-10-2025 DIABETES SCREEN DIABETES SCREEN [facility] Start: 12-25-2024 DIABETES SCREEN DIABETES SCREEN [facility] Start: 10-06-2024 DIABETES SCREEN DIABETES SCREEN [facility] Start: 09-18-2024 DIABETES SCREEN DIABETES SCREEN [facility] Start: 08-20-2024 DIABETES SCREEN DIABETES SCREEN [facility] Start: 07-02-2024 DIABETES SCREEN DIABETES SCREEN [facility] Start: 06-26-2024 DIABETES SCREEN DIABETES SCREEN [facility] Start: 06-09-2024 DIABETES SCREEN DIABETES SCREEN [facility] Start: 03-16-2024 DIABETES SCREEN DIABETES SCREEN [facility] Start: 07-06-2023 Hepatitis B surface antibody level LDL Cholesterol [facility] Start: 02-21-2023 Advance Directive Discussion Advance Directive Discussion [facility] Start: 02-21-2023 Depression Assessment Depression Assessment [facility] Start: 02-02-2023 Covid-19 Vaccine () Covid-19 Vaccine () [facility] Start: 10-22-2022 Influenza vaccination INFLUENZA (#1) [facility] Start: 02-21-2022 ADVANCE DIRECTIVE DISCUSSION ADVANCE DIRECTIVE DISCUSSION [facility] Start: 02-21-2022 DEPRESSION ASSESSMENT DEPRESSION ASSESSMENT [facility] Start: 02-10-2022 End: 02-12-2022 Basic metabolic 2000 panel - Serum or Plasma BASIC METABOLIC PNL Lab STAT Renal insufficiency Expected: 02/10/2022 (Approximate), Expires: 02/12/2022 [facility] Work Phone: Immunizations Immunization Date Immunization Notes Care Provider Eliazar stone 01-20-2023 respiratory syncytia l virus (RSV) vaccine, bivalent (ABRYSVO) Treatment Wstr Work Phone: [facility] 12-08-2022 COVID-19 vaccine, ag e 12+ yr, season (MODERNA) Maritza Bal MD Work Phone: [facility] 11-03-2022 influenza, high dose seasonal, preservative-free Treatment Wstr Work Phone: [facility] Work Phone: 12-04-2021 COVID-19 booster vaccine, age 12+ yr, bivalent ([employer]) Umagn Guidry MD Work Phone: [facility] Work Phone: 12-04-2021 influenza, high dose seasonal, preservative-free Umang Guidry MD Work Phone: [facility] Work Phone: 08-28-2021 COVID-19 vaccine, ag e 12+ yr ([employer] [facility]) Santino Long MD Work Phone: [facility] 12-03-2020 influenza, high-dose , quadrivalent vaccine (FLUZONE HIGH DOSE QUADRIVALENT) Maritza Bal MD Work Phone: [facility] 10-06-2020 zoster vaccine recombinant Maritza Bal MD Work Phone: [facility] Work Phone: 08-05-2020 zoster vaccine recombinant Maritza Bal MD Work Phone: [facility] Work Phone: 04-17-2020 COVID-19 vaccine, fu ll dose (MODERNA) Maritza Bal MD Work Phone: [facility] 03-20-2020 COVID-19 vaccine, fu ll dose (MODERNA) Maritza Bal MD Work Phone: [facility] 01-04-2020 influenza, high dose seasonal, preservative-free Maritza Bal MD Work Phone: [facility] Work Phone: 01-04-2020 influenza, high-dose , quadrivalent vaccine (FLUZONE HIGH DOSE QUADRIVALENT) Maritza Bal MD Work Phone: [facility] 11-28-2018 influenza, high dose seasonal, preservative-free Maritza Bal MD Work Phone: [facility] Work Phone: 10-27-2017 influenza, high dose seasonal, preservative-free Maritza Bal MD Work Phone: [facility] Work Phone: 12-11-2016 influenza, high dose seasonal, preservative-free Maritza Bal MD Work Phone: [facility] Work Phone: 04-21-2016 influenza, high dose seasonal, preservative-free Maritza Bal MD Work Phone: [facility] 10-23-2015 pneumococcal conjuga te vaccine, 13 valent Maritza Bal MD Work Phone: [facility] 12-05-2014 influenza, high dose seasonal, preservative-free Maritza Bal MD Work Phone: [facility] 12-26-2013 influenza, seasonal, injectable Maritza Bal MD Work Phone: [facility] 12-25-2012 influenza virus vacc ine, unspecified formulation Maritza Bal MD Work Phone: [facility] 03-04-2009 tetanus and diphther ia toxoids, adsorbed, preservative free, for adult use (2 Lf of tetanus toxoid and 2 Lf of diphtheria toxoid) Maritza Bal MD Work Phone: [facility] Work Phone: 01-02-2007 influenza virus vacc ine, unspecified formulation Maritza Bal MD Work Phone: [facility] Work Phone: 01-02-2007 pneumococcal polysaccharide vaccine, 23 valent Maritza Bal MD Work Phone: [facility] Work Phone: Payers Date Payer Category Payer Medicare [id number] 2016 Unknown [employer] DIC[employer] SUPPLEMENT [id number] 2016-Present [phone] [id number] [place] [address] Indemnity [id number] 2016 Unknown [employer] DIC[employer] SUPPLEMENT [id number] 2016-Present [phone] [address] [place] [address] [employer] [id number] 2002 Medicare MEDICARE MEDICAR E A AND B [id number] 2002-Present [phone] [place] [address] Medicare [id number] 2001 Medicare [id number] 2001 Medicare [id number] Social History Date Type Detail Facility Start: 07-02-2021 End: 10-12-2021 Tobacco smoking status NHIS Ex-smoker [facility] Work Phone: End: 03-19-1962 History of tobacco use Current smoker [facility] Start: 04-28-2021 End: 02-02-2023 Alcohol intake Current drinker of alcohol (finding) [facility] [facility] Start: 04-28-2021 End: 07-06-2022 Alcohol intake [facility] Start: 11-24-2019 End: 01-28-2022 History SDOH Alcohol Frequency 5 [facility] Start: 11-24-2019 End: 01-28-2022 History SDOH Alcohol Std Drinks 1 [facility] Start: 11-24-2019 End: 01-28-2022 History SDOH Social Connections Phone 3 [facility] Start: 11-24-2019 End: 01-28-2022 History SDOH Physical Activity MPS 2 [facility] Start: 11-24-2019 Education 12 [facility] Start: 1935 Sex Assigned At Male [facility] Start: 04-27-2021 End: 01-21-2022 Exposure to SARS-CoV-2 (event) Not sure [facility] End: [birth year]19-1962 History of tobacco use Cigarette Smoker [facility] Work Phone: Start: 07-02-2021 End: 10-12-2021 Tobacco Comment 1 ppd [facility] Start: 07-02-2021 End: 10-12-2021 Tobacco use and exposure Smokeless tobacco non-user [facility] Work Phone: Start: 09-11-2021 End: 10-13-2021 Exposure to SARS-CoV-2 (event) Unable to assess [facility] Start: 01-21-2022 Alcohol Comment Daily [facility] Start: 01-28-2022 End: 07-06-2022 Social connection and isolation panel [facility] Do you belong to any clubs or organizations such as zoroastrianism groups, unions, fraternal or athletic groups, or school groups? Yes [facility] Are you now , , , , never or living with a partner? [facility] How often to you hav e a drink containing alcohol? 4 or more times a week [facility] Work Phone: How many standard dr inks containing alcohol do you have on a typical day? 1 or 2 [facility] Work Phone: How often do you hav e 6 or more drinks on 1 occasion? Never [facility] Work Phone: How hard is it for y ou to pay for the very basics like food, housing, medical care, and heating Not hard at all [facility] Do you feel stress - tense, restless, nervous, or anxious, or unable to sleep at night because your mind is troubled all the time - these days [OSQ] To some extent [facility] (I/We) worried sudhakar er (my/our) food would run out before (I/we) got money to buy more. Never true [facility] In the past 12 month s, was there a time when you were not able to pay the mortgage or rent on time? No [facility] Start: 01-24-2019 Gender identity Identifies as male gender (finding) [facility] Start: 01-24-2019 Sexual orientation Heterosexual (finding) [facility] Clinical Notes 05-25-2017 to 02-02-2023 Patient Tana Martin PA-C - 02/02/2023 2:32 PM ESTTelephone Encounter - TuckerCamila okeefe Jalil MARS - 01/17/2023 12:34 PM Santino Bell MD - 12/29/2022 1:20 PM EST Note Date & Type Note Facility 02-02-2023 Note HNO ID: [id number] Author: Tana Gongora PA-C Service: ? Author Type: Physician Lemon Grower Type: Progress Notes Filed: 02/02/2023 2:54 PM Note Text: CHIEF COMPLAINT: Patient presents with: Collagenous collitis: No concerns HPI Lucinda Hernandez is a 87 year old male here today for Collagenous collitis (No concerns). Seen last for h/o collagenous colitis. Was started on trial of Entocort as well as mesalamine 11/2021. Colazal worked well to help regulate his bowel habits. Attempted taper last OV, pt requested more refills of med around 07/09/2022. Taking 3 tabs Colazal in am and pm with relief. Bms are formed to loose consistency, no blood. Denies abd pain, unintentional weight loss, bloating, GERD sx Component Latest Ref Rng AND Units 04/29/2022 Calprotectin, Fecal 0 - 50 mg/kg 218.7 (H) MRE 02/2022 IMPRESSION: NO ACTIVE INFLAMMATORY SMALL BOWEL CROHN'S DISEASE. PENETRATING DISEASE: ABSENT EGD/Colon 10/2021 FINAL DIAGNOSIS A. Duodenum, biopsy: - Small bowel mucosa with no diagnostic alteration. - No evidence of celiac sprue. B. Stomach, biopsy: - Antral mucosa with no diagnostic alteration. - No evidence of H. pylori. C. Lower esophagus, biopsy: - Squamous mucosa with no diagnostic alteration. - No evidence of intestinal metaplasia or dysplasia. D. Terminal ileum, biopsy: - Collagenous colitis. - No ileal mucosa present. E. Random colon, biopsy: - Small intestinal mucosa with active inflammation and increased apoptotic activity. - See comment. Component Latest Ref Rng AND Units 12/27/2022 WBC 3.70 - 11.00 k/uL 6.84 RBC 4.20 - 6.00 m/uL 4.90 Hemoglobin 13.0 - 17.0 g/dL 15.9 Hematocrit 39.0 - 51.0 % 47.3 MCV 80.0 - 100.0 fL 96.5 MCH 26.0 - 34.0 pg 32.4 MCHC 30.5 - 36.0 g/dL 33.6 RDW-CV 11.5 - 15.0 % 13.9 Platelet Count 150 - 400 k/uL 234 MPV 9.0 - 12.7 fL 11.7 Neut% % 59.1 Abs Neut (ANC) 1.45 - 7.50 k/uL 4.05 Lymph% % 24.0 Abs Lymph 1.00 - 4.00 k/uL 1.64 Pope% % 12.6 Abs Pope <0.87 k/uL 0.86 Eosin% % 3.1 Abs Eosin <0.46 k/uL 0.21 Baso% % 0.9 Abs Baso <0.11 k/uL 0.06 Immature Gran % % 0.3 IMMATURE GRANS (ABS) <0.10 k/uL <0.03 NRBC /100 WBC 0.0 Absolute nRBC <0.01 k/uL <0.01 DTYPE Auto Protein, Total 6.3 - 8.0 g/dL 6.8 Albumin 3.9 - 4.9 g/dL 4.0 Calcium 8.5 - 10.2 mg/dL 9.8 Bilirubin, Total 0.2 - 1.3 mg/dL 0.7 Alkaline Phosphatase 38 - 113 U/L 83 AST 14 - 40 U/L 34 ALT 10 - 54 U/L 18 Glucose 74 - 99 mg/dL 88 BUN 9 - 24 mg/dL 21 Creatinine 0.73 - 1.22 mg/dL 1.08 Sodium 136 - 144 mmol/L 141 Potassium 3.7 - 5.1 mmol/L 4.7 Chloride 97 - 105 mmol/L 104 CO2 22 - 30 mmol/L 22 Anion Gap 9 - 18 mmol/L 15 eGFR >=60 mL/min/1.73mA? 67 TB Nil <=8.00 IU/mL 0.02 TB1 Ag minus Nil <0.35 IU/mL 0.01 TB2 Ag minus Nil <0.35 IU/mL 0.00 TB Result Negative Mitogen minus Nil >=0.50 IU/mL >9.98 TB Interpretation Infection with M. tuberculosis complex is unlikely. If latent tuberculosis infection is highly suspected, a negative result does not rule out the infection. Specimens from immunocompromised patients and those <5 years of age may show false negative results. In case of a contact investigation, please repeat 8-12 weeks after a known exposure. Hep B Surface Ab, Qual Negative Hep B Surf Ab Quant mIU/mL <8.00 Hep C Antibody IA Negative Negative Hep B Surface Ag Negative Negative Hep B Core Ab, Total Negative Negative OV 07/2022 Lucinda Hernandez is a 86 year old male here today for Recheck (Patient still having a little bit of stomach pain and loose stools. Recently dx with weakened heart history updated). Followed in GI office for collagenous colitis. EGD/Colon 10/2021 demonstrated findings of collagenous colitis, neg. For Celiac/H.pylori. Was started on trial of Entocort as well as mesalamine 11/2021. Colazal worked well to help regulate his bowel habits. Attempted taper last OV, pt requested more refills of med around 07/09/2022. Taking two tab Colazal TID with good regular Bms. Bms are 1-2 per day, formed to loose, no blood/black coloring. Current Outpatient Medications Medication Sig lisinopril (ZESTRIL) 20 mg tablet Take 1 tablet by mouth once daily. hydrOXYchloroQUINE (PLAQUENIL) 200 mg tablet Take 2 tablets every day Except on Tuesday take only one tablet balsalazide (COLAZAL) 750 mg capsule Take 3 capsules by mouth three times daily. dapagliflozin propanediol (FARXIGA) 10 mg tablet Take 10 mg by mouth daily with breakfast. furosemide (LASIX) 40 mg tablet Take 40 mg by mouth as needed. metoprolol succinate ER (TOPROL XL) 50 mg 24 hr tablet Take 50 mg by mouth every evening. spironolactone (ALDACTONE) 25 mg tablet Take 25 mg by mouth once daily. cholecalciferol, vitamin D3, (VITAMIN D3 ORAL) Take 1 tablet by mouth once daily. apixaban (ELIQUIS) 5 mg tab(s) Take 1 tablet by mouth twice daily. Per cardiology mometasone (ELOCON) 0.1 % cream Apply 1 application to affected area once daily as (more content not included)... [facility] 02-02-2023 Instructions Tana Gongora PA-C - 02/02/2023 2:50 PM EST - Start OTC probiotic with at least 15 billion live cultures, 10+ strains - Continue Colazal 3 tabs in morning and evening - May take Imodium up to 8 tablets per day as needed for diarrhea flare ups documented in this encounter [facility] 02-02-2023 History of Present illness Narrative CHIEF COMPLAINT: Patient presents with: Collagenous collitis: No concerns HPI Lucinda Hernandez is a 87 year old male here today for Collagenous collitis (No concerns). Seen last for h/o collagenous colitis. Was started on trial of Entocort as well as mesalamine 11/2021. Colazal worked well to help regulate his bowel habits. Attempted taper last OV, pt requested more refills of med around 07/09/2022. Taking 3 tabs Colazal in am and pm with relief. Bms are formed to loose consistency, no blood. Denies abd pain, unintentional weight loss, bloating, GERD sx Component Latest Ref Rng & Units 04/29/2022 Calprotectin, Fecal 0 - 50 mg/kg 218.7 (H) MRE 02/2022 IMPRESSION: NO ACTIVE INFLAMMATORY SMALL BOWEL CROHN'S DISEASE. PENETRATING DISEASE: ABSENT EGD/Colon 10/2021 FINAL DIAGNOSIS A. Duodenum, biopsy: - Small bowel mucosa with no diagnostic alteration. - No evidence of celiac sprue. B. Stomach, biopsy: - Antral mucosa with no diagnostic alteration. - No evidence of H. pylori. C. Lower esophagus, biopsy: - Squamous mucosa with no diagnostic alteration. - No evidence of intestinal metaplasia or dysplasia. D. Terminal ileum, biopsy: - Collagenous colitis. - No ileal mucosa present. E. Random colon, biopsy: - Small intestinal mucosa with active inflammation and increased apoptotic activity. - See comment. Component Latest Ref Rng & Units 12/27/2022 WBC 3.70 - 11.00 k/uL 6.84 RBC 4.20 - 6.00 m/uL 4.90 Hemoglobin 13.0 - 17.0 g/dL 15.9 Hematocrit 39.0 - 51.0 % 47.3 MCV 80.0 - 100.0 fL 96.5 MCH 26.0 - 34.0 pg 32.4 MCHC 30.5 - 36.0 g/dL 33.6 RDW-CV 11.5 - 15.0 % 13.9 Platelet Count 150 - 400 k/uL 234 MPV 9.0 - 12.7 fL 11.7 Neut% % 59.1 Abs Neut (ANC) 1.45 - 7.50 k/uL 4.05 Lymph% % 24.0 Abs Lymph 1.00 - 4.00 k/uL 1.64 Pope% % 12.6 Abs Pope <0.87 k/uL 0.86 Eosin% % 3.1 Abs Eosin <0.46 k/uL 0.21 Baso% % 0.9 Abs Baso <0.11 k/uL 0.06 Immature Gran % % 0.3 IMMATURE GRANS (ABS) <0.10 k/uL <0.03 NRBC /100 WBC 0.0 Absolute nRBC <0.01 k/uL <0.01 DTYPE Auto Protein, Total 6.3 - 8.0 g/dL 6.8 Albumin 3.9 - 4.9 g/dL 4.0 Calcium 8.5 - 10.2 mg/dL 9.8 Bilirubin, Total 0.2 - 1.3 mg/dL 0.7 Alkaline Phosphatase 38 - 113 U/L 83 AST 14 - 40 U/L 34 ALT 10 - 54 U/L 18 Glucose 74 - 99 mg/dL 88 BUN 9 - 24 mg/dL 21 Creatinine 0.73 - 1.22 mg/dL 1.08 Sodium 136 - 144 mmol/L 141 Potassium 3.7 - 5.1 mmol/L 4.7 Chloride 97 - 105 mmol/L 104 CO2 22 - 30 mmol/L 22 Anion Gap 9 - 18 mmol/L 15 eGFR >=60 mL/min/1.73m 67 TB Nil <=8.00 IU/mL 0.02 TB1 Ag minus Nil <0.35 IU/mL 0.01 TB2 Ag minus Nil <0.35 IU/mL 0.00 TB Result Negative Mitogen minus Nil >=0.50 IU/mL >9.98 TB Interpretation Infection with M. tuberculosis complex is unlikely. If latent tuberculosis infection is highly suspected, a negative result does not rule out the infection. Specimens from immunocompromised patients and those <5 years of age may show false negative results. In case of a contact investigation, please repeat 8-12 weeks after a known exposure. Hep B Surface Ab, Qual Negative Hep B Surf Ab Quant mIU/mL <8.00 Hep C Antibody IA Negative Negative Hep B Surface Ag Negative Negative Hep B Core Ab, Total Negative Negative OV 07/2022 Lucinda Hernandez is a 86 year old male here today for Recheck (Patient still having a little bit of stomach pain and loose stools. Recently dx with weakened heart history updated). Followed in GI office for collagenous colitis. EGD/Colon 10/2021 demonstrated findings of collagenous colitis, neg. For Celiac/H.pylori. Was started on trial of Entocort as well as mesalamine 11/2021. Colazal worked well to help regulate his bowel habits. Attempted taper last OV, pt requested more refills of med around 07/09/2022. Taking two tab Colazal TID with good regular Bms. Bms are 1-2 per day, formed to loose, no blood/black coloring. Current Outpatient Medications Medication Sig lisinopril (ZESTRIL) 20 mg tablet Take 1 tablet by mouth once daily. hydrOXYchloroQUINE (PLAQUENIL) 200 mg tablet Take 2 tablets every day Except on Tuesday take only one tablet balsalazide (COLAZAL) 750 mg capsule Take 3 capsules by mouth three times daily. dapagliflozin propanediol (FARXIGA) 10 mg tablet Take 10 mg by mouth daily with breakfast. furosemide (LASIX) 40 mg tablet Take 40 mg by mouth as needed. metoprolol succinate ER (TOPROL XL) 50 mg 24 hr tablet Take 50 mg by mouth every evening. spironolactone (ALDACTONE) 25 mg tablet Take 25 mg by mouth once daily. cholecalciferol, vitamin D3, (VITAMIN D3 ORAL) Take 1 tablet by mouth once daily. apixaban (ELIQUIS) 5 mg tab(s) Take 1 tablet by mouth twice daily. Per cardiology mometasone (ELOCON) 0.1 % cream Apply 1 application to affected area once daily as needed. Clobetasol Propionate (TEMOVATE) 0.05 % external solution APPLY SOLUTION TO AREAS OF RASH ON THE SCALP ONCE DAILY No current facility-administered medications for this visit. ALLERGIES Allergen Reactions Enbrel [Etanercept] Rash Social History Tobacco Use Smoking status: Former Types: Cigarettes Quit date: 03/19/1963 Years since quittin.9 Smokeless tobacco: Never Tobacco comments: 1 ppd Vaping Use Vaping Use: Never used Substance Use Topics Alcohol use: Yes Alcohol/week: 35.0 standard drinks of alcohol Types: 21 Standard drinks or equivalent, 14 Glasses of Wine (5oz) per week Comment: Daily Drug use: No PAST MEDICAL HISTORY Diagnosis Date A-fib ([facility]) 06/18/2022 06/18/22-newly diagnosed. 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 Weakened heart Atherosclerosis of [place] coronary artery of [place] heart without angina pectoris 08/26/2022 BPH W/O URINARY OBS/LUTS 01/02/2007 Cardiomyopathy ([facility]) 10/06/2022 Chronic rhinitis 05/11/2005 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 10/14/2010 Generalized osteoarthrosis 03/04/2009 Dr. Denise Gama. Synvisc injections. HYPERSOMNI W SLEEP APNEA 03/19/2003 HYPERTENSION NOS 06/15/2005 Lumbar radiculopathy 10/06/2022 Rheumatoid arthritis involving multiple sites with positive rheumatoid factor ([facility]) 01/29/2015 CCP +, RF +, erosive. Early Rx in 2002: SSZ and plaquenil. Progression of dz 06/2010- tried Enbrel x ~ 1 months (rash - stopped). RTX 01/2011, 08/2011, 03/2012, 11/2012, 06/2013, 01/2014, 07/2014, 01/2015, 08/2015, 03/2016 TIA due to embolism ([facility]) 09/01/2022 PAST SURGICAL HISTORY Procedure Laterality Date ARTHRP KNE CONDYLE&PLATU MEDIAL&LAT COMPARTMENTS 12/2011 Bilateral COLONOSCOPY 08/09/2012 COLONOSCOPY 11/18/2021 COLONOSCOPY FLX DX W/COLLJ SPEC WHEN PFRMD 05/18/2005 EGD W/O [facility] SPEC VARICIES INJ 11/18/2021 LEFT HEART CATH,PERCUTANEOUS 08/26/2022 PAST SURGICAL HISTORY OF Left 01/06/2001 Inguinal hernia x 2 PAST SURGICAL HISTORY OF 04/04/2003 Right foot surgery PAST SURGICAL HISTORY OF 06/23/2017 Right cataract surgery PAST SURGICAL HISTORY OF 07/04/2017 Left cataract surgery UVULECTOMY EXCISION UVULA 1987 [facility], Dr. Temple FAMILY HISTORY Problem Relation Age of Onset Diabetes Mother Coronary Artery Disease Mother [place] at age 82 Ischemic Heart Disease Father at age 66 other (pituitary tumor) Brother other (Other) Brother aspiration pneumonia Coronary Artery Disease Brother Hypertension Brother Colon Cancer No Family History REVIEW OF SYSTEMS Review of Systems All other systems reviewed and are negative. PHYSICAL EXAM BP 122/68 Pulse 86 Ht 182.9 cm (6') Wt 78 kg (172 lb) BMI 23.33 kg/m Physical Exam Constitutional: General: He is not in acute distress. Appearance: Normal appearance. He is normal weight. He is not ill-appearing, toxic-appearing or diaphoretic. HENT: Head: Normocephalic and atraumatic. Nose: Nose normal. Eyes: General: No scleral icterus. Right eye: No discharge. Left eye: No discharge. Extraocular Movements: Extraocular movements intact. Conjunctiva/sclera: Conjunctivae normal. Pupils: Pupils are equal, round, and reactive to light. Cardiovascular: Rate and Rhythm: Normal rate and regular rhythm. Pulses: Normal pulses. Heart sounds: Normal heart sounds. No murmur heard. No friction rub. No gallop. Pulmonary: Effort: No respiratory distress. Breath sounds: Normal breath sounds. No stridor. No wheezing, rhonchi or rales. Chest: Chest wall: No tenderness. Abdominal: General: Abdomen is flat. Bowel sounds are normal. There is no distension. Palpations: Abdomen is soft. There is no mass. Tenderness: There is no abdominal tenderness. There is no right CVA tenderness, left CVA tenderness, guarding or rebound. Hernia: No hernia is present. Musculoskeletal: General: Normal range of motion. Cervical back: Normal range of motion and neck supple. Skin: General: Skin is warm and dry. Neurological: General: No focal deficit present. Mental Status: He is alert and oriented to person, place, and time. Psychiatric: Mood and Affect: Mood normal. Behavior: Behavior normal. Assessment/Plan (K52.831) Collagenous colitis (primary encounter diagnosis) 1. Collagenous colitis - CALPROTECTIN,FECAL - Overall doing well with Colazal 3 tabs daily in am and pm - Recheck fecal calprotectin - Start OTC probiotic with at least 15 billion live cultures, 10+ strains - May take Imodium (no more than 8 tablets per day) PRN for diarrhea flare ups Follow up in office 12 months/PRN. I spent a total of 15 minutes on the date of the service which included preparing to see the patient, [id number] patient care, completing clinical documentation, obtaining and/or reviewing separately obtained history, performing a medically appropriate examination, counseling and educating the patient/family/caregiver, ordering medications, tests, or procedures, communicating with other HCPs (not separately reported), independently interpreting results (not separately reported), communicating results to the patient/family/caregiver, and care coordination (not separately reported). Tana Gongora PA-C February 02, 2023 2:48 PM documented in this encounter [facility] 01-17-2023 Miscellaneous Notes Patient has been identified by name and date of : Yes Patient phones for refill(s): Requested Prescriptions Pending Prescriptions Disp Refills lisinopril (ZESTRIL) 20 mg tablet Sig: Take 1 tablet by mouth once daily. Date of last office visit in primary care: 12/29/2022 Date of next office visit in primary care: 06/29/2023 Last 2 Encounter Wt Readings: Date: Wt: 12/27/2022 77.7 kg (171 lb 3.2 oz) 10/12/2022 75.8 kg (167 lb) Previous labs/tests for medication: Blood Pressure: BUN (mg/dL) Date Value 12/27/2022 21 03/16/2021 25 Sodium (mmol/L) Date Value 12/27/2022 141 03/16/2021 140 Last 1 Encounter BP Readings: Date: BP: 12/27/2022 146/65 Please advise. Thank you. Camila Ceballos LPN. documented in this encounter [facility] 12-29-2022 Note HNO ID: [id number] Author: Santino Long MD Service: ? Author Type: Physician Type: Progress Notes Filed: 12/29/2022 1:34 PM Note Text: This note was created using [employer]. Subjective Lucinda Hernandez is a 87 year old male. He was feeling better from the last visit. He had cardioversion and his congestive heart failure was better. Review of Systems Constitutional: Negative for fatigue and fever. Respiratory: Negative for shortness of breath. Cardiovascular: Negative for chest pain, palpitations and leg swelling. 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 Rheumatoid Arthritis Involving Multiple Sites With Positive Rheumatoid Factor (Hcc) Long-Term Use of Plaquenil Contact Dermatitis Gerd (Gastroesophageal Reflux Disease) Mild Intermittent Asthma Without Complication Former Smoker Renetta (Obstructive Sleep Apnea) Hypogammaglobulinemia (Hcc) A-Fib (Hcc) Cardiomyopathy (Hcc) Stage 3 Chronic Kidney Disease (Hcc) Atherosclerosis of [place] Coronary Artery of [place] Heart Without Angina Pectoris Lumbar Radiculopathy History of Tia (Transient Ischemic Attack) Current Outpatient Medications Medication Sig hydrOXYchloroQUINE (PLAQUENIL) 200 mg tablet Take 2 tablets every day Except on Tuesday take only one tablet balsalazide (COLAZAL) 750 mg capsule Take 3 capsules by mouth three times daily. dapagliflozin propanediol (FARXIGA) 10 mg tablet Take 10 mg by mouth daily with breakfast. furosemide (LASIX) 40 mg tablet Take 40 mg by mouth as needed. metoprolol succinate ER (TOPROL XL) 100 mg Take 50 mg by mouth every evening. spironolactone (ALDACTONE) 25 mg tablet Take 25 mg by mouth once daily. cholecalciferol, vitamin D3, (VITAMIN D3 ORAL) Take 1 tablet by mouth once daily. apixaban (ELIQUIS) 5 mg tab(s) Take 1 tablet by mouth twice daily. Per cardiology mometasone (ELOCON) 0.1 % cream Apply 1 application to affected area once daily as needed. Clobetasol Propionate (TEMOVATE) 0.05 % external solution APPLY SOLUTION TO AREAS OF RASH ON THE SCALP ONCE DAILY lisinopril (ZESTRIL) 20 mg tablet Take 1 tablet by mouth once daily. No current facility-administered medications for this visit. Objective BP (P) 118/60 (BP Site: Left Arm, BP Position: Sitting, BP Cuff Size: Large Adult) Pulse (!) (P) 44 Wt (P) 78.5 kg (173 lb) SpO2 (P) 96% BMI (P) 23.08 kg/m? Physical Exam Constitutional: General: He is not in acute distress. Cardiovascular: Rate and Rhythm: Bradycardia present. Rhythm irregular. Heart sounds: No murmur heard. No gallop. Pulmonary: Effort: Pulmonary effort is normal. No respiratory distress. Breath sounds: No wheezing or rales. Musculoskeletal: Right lower leg: No edema. Left lower leg: No edema. Neurological: Mental Status: He is alert. Assessment and Plan 1. Atrial fibrillation, unspecified type (HCC) - ICD9: 427.31, ICD10: I48.91 (primary diagnosis) S/p cardioversion. Continue per [facility]. 2. Cardiomyopathy, unspecified type (HCC) - ICD9: 425.4, ICD10: I42.9 Controlled. 3. Essential hypertension - ICD9: 401.9, ICD10: I10 - Controlled Medications updated. Santino Long MD [facility] 12-29-2022 History of Present illness Narrative This note was created using [employer]. Subjective Lucinda Hernandez is a 87 year old male. He was feeling better from the last visit. He had cardioversion and his congestive heart failure was better. Review of Systems Constitutional: Negative for fatigue and fever. Respiratory: Negative for shortness of breath. Cardiovascular: Negative for chest pain, palpitations and leg swelling. 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 Rheumatoid Arthritis Involving Multiple Sites With Positive Rheumatoid Factor (Hcc) Long-Term Use of Plaquenil Contact Dermatitis Gerd (Gastroesophageal Reflux Disease) Mild Intermittent Asthma Without Complication Former Smoker Renetta (Obstructive Sleep Apnea) Hypogammaglobulinemia (Hcc) A-Fib (Hcc) Cardiomyopathy (Hcc) Stage 3 Chronic Kidney Disease (Hcc) Atherosclerosis of [place] Coronary Artery of [place] Heart Without Angina Pectoris Lumbar Radiculopathy History of Tia (Transient Ischemic Attack) Current Outpatient Medications Medication Sig hydrOXYchloroQUINE (PLAQUENIL) 200 mg tablet Take 2 tablets every day Except on Tuesday take only one tablet balsalazide (COLAZAL) 750 mg capsule Take 3 capsules by mouth three times daily. dapagliflozin propanediol (FARXIGA) 10 mg tablet Take 10 mg by mouth daily with breakfast. furosemide (LASIX) 40 mg tablet Take 40 mg by mouth as needed. metoprolol succinate ER (TOPROL XL) 100 mg Take 50 mg by mouth every evening. spironolactone (ALDACTONE) 25 mg tablet Take 25 mg by mouth once daily. cholecalciferol, vitamin D3, (VITAMIN D3 ORAL) Take 1 tablet by mouth once daily. apixaban (ELIQUIS) 5 mg tab(s) Take 1 tablet by mouth twice daily. Per cardiology mometasone (ELOCON) 0.1 % cream Apply 1 application to affected area once daily as needed. Clobetasol Propionate (TEMOVATE) 0.05 % external solution APPLY SOLUTION TO AREAS OF RASH ON THE SCALP ONCE DAILY lisinopril (ZESTRIL) 20 mg tablet Take 1 tablet by mouth once daily. No current facility-administered medications for this visit. Objective BP (P) 118/60 (BP Site: Left Arm, BP Position: Sitting, BP Cuff Size: Large Adult) Pulse (!) (P) 44 Wt (P) 78.5 kg (173 lb) SpO2 (P) 96% BMI (P) 23.08 kg/m Physical Exam Constitutional: General: He is not in acute distress. Cardiovascular: Rate and Rhythm: Bradycardia present. Rhythm irregular. Heart sounds: No murmur heard. No gallop. Pulmonary: Effort: Pulmonary effort is normal. No respiratory distress. Breath sounds: No wheezing or rales. Musculoskeletal: Right lower leg: No edema. Left lower leg: No edema. Neurological: Mental Status: He is alert. Assessment and Plan 1. Atrial fibrillation, unspecified type (HCC) - ICD9: 427.31, ICD10: I48.91 (primary diagnosis) S/p cardioversion. Continue per [facility]. 2. Cardiomyopathy, unspecified type (HCC) - ICD9: 425.4, ICD10: I42.9 Controlled. 3. Essential hypertension - ICD9: 401.9, ICD10: I10 - Controlled Medications updated. Santino Long MD documented in this encounter [facility] 12-28-2022 Miscellaneous Notes Please review and advise Adriana Mejia Team, This patient would like to receive his rituximab infusions at your location. Dr. Bal would like his infusion given the week of 01/17/23 if possible. Orders have been signed by Dr. Bal and authorization is approved with Medicare A/B. Please let me know if you have any questions or cannot accommodate. Thank you! Charlotte documented in this encounter [facility] 12-27-2022 Note HNO ID: [id number] Author: Maritza Bal MD Service: ? Author Type: Physician Type: Progress Notes Filed: 12/27/2022 2:00 PM Note Text: [facility] [place] Department of Rheumatic and Immunologic Diseases Established patient: RA CC: Pain in B/l Wrists Background history: Lucinda Hernandez is a 87 year old year-old male with PMH notable for seropositive erosive (CCP, RF) RA, OA, and BPH who presents to Rheumatology Clinic for evaluation of pain in B/l wrists. He states that he has had RA for about 15 years and was first started on oral medications. 12 years ago he was started on Rituximab. He has not had any reactions to the infusion and says he gets about 4 months of relief after the infusion. He was recently diagnosed with Pneumonia and was put on antibiotics. He says he is improving. He has stopped taking his Sulfasalazine because the pharmacy has been out of stock and was told to increase his Plaquenil dose by 1/2 a tablet. He says this has been going well so far. Treatment history of RA Early Rx in 2002: SSZ and plaquenil. Progression of dz 06/2010- tried Enbrel x ~ 1 months (rash -stopped). RTX 1g x2: 01/2011, 08/2011, 03/2012, 11/2012, 06/2013, 01/2014, 07/2014, 01/2015, 08/2015, 03/2016, 08/2016, 08/2017 RTX 1g x1: 02/2017 Last infusions on 06/11, 06/2020 1 g each On HCQ 300 mg - last OCT exam was done locally and was normal - last one was scanned in our documment was in 04/2019 Off of SSZ Takes naproxen every day Interval history December 27, 2022 He was diagnosied with CHF and A fib He noticed more increased pain in his wrist while on Orencia which giving him difficulty in daily activities He is up to date on his vaccines and no recent infections per him Last RTX 1000 mg in 01/27/2021 Last Orenia infusion was done on 12/16/2022 US in 04/2021 showed minimal active synovitis Review of Systems: Answers submitted by the patient for this visit: Review of Systems Rheumatology (Submitted on 12/21/2022) Fever : No Recent unintentional weight change: Yes Eye pain: No Eye redness: No Vision Disturbance: No Eye Dryness: No Nosebleeds: No Sores in your mouth: No Trouble Swallowing: No Dry Mouth: No Chest pain: Yes Leg Swelling: No A cough: Yes Blood when you cough: No Shortness of breath: No Pain with breathing: No Heartburn: No Abdominal pain: Yes Diarrhea: Yes Black tarry stools: No Blood in urine: No Pain or burning with urination: No Joint pain or stiffness: Yes Muscle weakness: Yes Muscle aches: Yes Joint swelling: No Morning Stiffness in Joints: No A rash: No Skin Color Changes: Yes Hair Loss: Yes Nail Changes: No Headaches: No Numbness: No Memory Loss: Yes Swollen Glands: No Otherwise, a 12 point ROS was obtained and was negative. PAST MEDICAL HISTORY Diagnosis Date A-fib ([facility]) 06/18/2022 06/18/22-newly diagnosed. 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 Weakened heart Atherosclerosis of [place] coronary artery of [place] heart without angina pectoris 08/26/2022 BPH W/O URINARY OBS/LUTS 01/02/2007 Cardiomyopathy ([facility]) 10/06/2022 Chronic rhinitis 05/11/2005 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 10/14/2010 Generalized osteoarthrosis 03/04/2009 Dr. Denise Gama. Synvisc injections. HYPERSOMNI W SLEEP APNEA 03/19/2003 HYPERTENSION NOS 06/15/2005 Lumbar radiculopathy 10/06/2022 Rheumatoid arthritis involving multiple sites with positive rheumatoid factor (HCC) 01/29/2015 CCP +, RF +, erosive. Early Rx in 2002: SSZ and plaquenil. Progression of dz 06/2010- tried Enbrel x ~ 1 months (rash - stopped). RTX 01/2011, 08/2011, 03/2012, 11/2012, 06/2013, 01/2014, 07/2014, 01/2015, 08/2015, 03/2016 TIA due to embolism (HCC) 09/01/2022 PAST SURGICAL HISTORY Procedure Laterality Date ARTHRP KNE CONDYLEANDPLATU MEDIALANDLAT COMPARTMENTS 12/2011 Bilateral COLONOSCOPY 08/09/2012 COLONOSCOPY 11/18/2021 COLONOSCOPY FLX DX W/COLLJ SPEC WHEN PFRMD 05/18/2005 EGD W/O BRSH SPEC VARICIES INJ 11/18/2021 LEFT HEART CATH,PERCUTANEOUS 08/26/2022 PAST SURGICAL HISTORY OF Left 01/06/2001 Inguinal hernia x 2 PAST SURGICAL HISTORY OF 04/04/2003 Right foot surgery PAST SURGICAL HISTORY OF 06/23/2017 Right cataract surgery PAST SURGICAL HISTORY OF 07/04/2017 Left cataract surgery UVULECTOMY EXCISION UVULA 1987 [facility], Dr. Temple FAMILY HISTORY Problem Relation Age of Onset Diabetes Mother Coronary Artery Disease Mother [place] at age 82 Ischemic Heart Disease Father at age 66 other (pituitary tumor) Brother other (Other) Brother aspiration pneumonia Coronary Artery Disease Brother Hypertension Brother Colon Cancer No Family History Social History Tobacco Use Smoking status: Former Types: Cigarettes Quit date: 03/19/1963 Years since quittin.8 Smokeless tobacco: Never Tobacco comments: 1 ppd Vaping Use Vaping Use: Never used Substance Use Topics Alcohol use: (more content not included)... [facility] 12-27-2022 History of Present illness Narrative [facility] [place] Department of Rheumatic and Immunologic Diseases Established patient: RA CC: Pain in B/l Wrists Background history: Lucinda Hernandez is a 87 year old year-old male with PMH notable for seropositive erosive (CCP, RF) RA, OA, and BPH who presents to Rheumatology Clinic for evaluation of pain in B/l wrists. He states that he has had RA for about 15 years and was first started on oral medications. 12 years ago he was started on Rituximab. He has not had any reactions to the infusion and says he gets about 4 months of relief after the infusion. He was recently diagnosed with Pneumonia and was put on antibiotics. He says he is improving. He has stopped taking his Sulfasalazine because the pharmacy has been out of stock and was told to increase his Plaquenil dose by 1/2 a tablet. He says this has been going well so far. Treatment history of RA Early Rx in 2002: SSZ and plaquenil. Progression of dz 06/2010- tried Enbrel x ~ 1 months (rash -stopped). RTX 1g x2: 01/2011, 08/2011, 03/2012, 11/2012, 06/2013, 01/2014, 07/2014, 01/2015, 08/2015, 03/2016, 08/2016, 08/2017 RTX 1g x1: 02/2017 Last infusions on 06/11, 06/2020 1 g each On HCQ 300 mg - last OCT exam was done locally and was normal - last one was scanned in our documment was in 04/2019 Off of SSZ Takes naproxen every day Interval history December 27, 2022 He was diagnosied with CHF and A fib He noticed more increased pain in his wrist while on Orencia which giving him difficulty in daily activities He is up to date on his vaccines and no recent infections per him Last RTX 1000 mg in 01/27/2021 Last Orenia infusion was done on 12/16/2022 US in 04/2021 showed minimal active synovitis Review of Systems: Answers submitted by the patient for this visit: Review of Systems Rheumatology (Submitted on 12/21/2022) Fever : No Recent unintentional weight change: Yes Eye pain: No Eye redness: No Vision Disturbance: No Eye Dryness: No Nosebleeds: No Sores in your mouth: No Trouble Swallowing: No Dry Mouth: No Chest pain: Yes Leg Swelling: No A cough: Yes Blood when you cough: No Shortness of breath: No Pain with breathing: No Heartburn: No Abdominal pain: Yes Diarrhea: Yes Black tarry stools: No Blood in urine: No Pain or burning with urination: No Joint pain or stiffness: Yes Muscle weakness: Yes Muscle aches: Yes Joint swelling: No Morning Stiffness in Joints: No A rash: No Skin Color Changes: Yes Hair Loss: Yes Nail Changes: No Headaches: No Numbness: No Memory Loss: Yes Swollen Glands: No Otherwise, a 12 point ROS was obtained and was negative. PAST MEDICAL HISTORY Diagnosis Date A-fib ([facility]) 06/18/2022 06/18/22-newly diagnosed. 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 Weakened heart Atherosclerosis of [place] coronary artery of [place] heart without angina pectoris 08/26/2022 BPH W/O URINARY OBS/LUTS 01/02/2007 Cardiomyopathy (HCC) 10/06/2022 Chronic rhinitis 05/11/2005 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 10/14/2010 Generalized osteoarthrosis 03/04/2009 Dr. Denise Gama. Synvisc injections. HYPERSOMNI W SLEEP APNEA 03/19/2003 HYPERTENSION NOS 06/15/2005 Lumbar radiculopathy 10/06/2022 Rheumatoid arthritis involving multiple sites with positive rheumatoid factor (HCC) 01/29/2015 CCP +, RF +, erosive. Early Rx in 2002: SSZ and plaquenil. Progression of dz 06/2010- tried Enbrel x ~ 1 months (rash - stopped). RTX 01/2011, 08/2011, 03/2012, 11/2012, 06/2013, 01/2014, 07/2014, 01/2015, 08/2015, 03/2016 TIA due to embolism ([facility]) 09/01/2022 PAST SURGICAL HISTORY Procedure Laterality Date ARTHRP KNE CONDYLE&PLATU MEDIAL&LAT COMPARTMENTS 12/2011 Bilateral COLONOSCOPY 08/09/2012 COLONOSCOPY 11/18/2021 COLONOSCOPY FLX DX W/COLLJ SPEC WHEN PFRMD 05/18/2005 EGD W/O BRSH SPEC VARICIES INJ 11/18/2021 LEFT HEART CATH,PERCUTANEOUS 08/26/2022 PAST SURGICAL HISTORY OF Left 01/06/2001 Inguinal hernia x 2 PAST SURGICAL HISTORY OF 04/04/2003 Right foot surgery PAST SURGICAL HISTORY OF 06/23/2017 Right cataract surgery PAST SURGICAL HISTORY OF 07/04/2017 Left cataract surgery UVULECTOMY EXCISION UVULA 1987 [facility], Dr. Temple FAMILY HISTORY Problem Relation Age of Onset Diabetes Mother Coronary Artery Disease Mother [place] at age 82 Ischemic Heart Disease Father at age 66 other (pituitary tumor) Brother other (Other) Brother aspiration pneumonia Coronary Artery Disease Brother Hypertension Brother Colon Cancer No Family History Social History Tobacco Use Smoking status: Former Types: Cigarettes Quit date: 03/19/1963 Years since quittin.8 Smokeless tobacco: Never Tobacco comments: 1 ppd Vaping Use Vaping Use: Never used Substance Use Topics Alcohol use: Yes Alcohol/week: 35.0 standard drinks of alcohol Types: 21 Standard drinks or equivalent, 14 Glasses of Wine (5oz) per week Comment: Daily Drug use: No MEDICATIONS: hydrOXYchloroQUINE (PLAQUENIL) 200 mg tablet Take 2 tablets every day Except on Tuesday take only one tablet balsalazide (COLAZAL) 750 mg capsule Take 3 capsules by mouth three times daily. dapagliflozin propanediol (FARXIGA) 10 mg tablet Take 10 mg by mouth daily with breakfast. furosemide (LASIX) 40 mg tablet Take 1 tablet by mouth once daily. lisinopril (ZESTRIL) 40 mg tablet Take 0.5 tablets by mouth once daily. Dose reduced. metoprolol succinate ER (TOPROL XL) 100 mg Take 1 tablet by mouth every evening. spironolactone (ALDACTONE) 25 mg tablet Take 25 mg by mouth once daily. cholecalciferol, vitamin D3, (VITAMIN D3 ORAL) Take 1 tablet by mouth once daily. apixaban (ELIQUIS) 5 mg tab(s) Take 1 tablet by mouth twice daily. Per cardiology mometasone (ELOCON) 0.1 % cream Apply 1 application to affected area once daily as needed. Clobetasol Propionate (TEMOVATE) 0.05 % external solution APPLY SOLUTION TO AREAS OF RASH ON THE SCALP ONCE DAILY ALLERGIES Allergen Reactions Enbrel [Etanercept] Rash Physical Examination: BP 146/65 Pulse (!) 47 Temp 36.3 C (97.3 F) (Temporal) Wt 77.7 kg (171 lb 3.2 oz) BMI 22.84 kg/m GEN: awake, alert, well-appearing PULM: on RA. No acute distress. No cough NEURO: no facial asymmetry SKIN: no facial asymmetry MSK: limited ROM of right wrist without any swelling or focal tenderness. No focal tenderness or swelling or left wrist or MCPs EXT: no leg swelling ASSESSMENT: Lucinda Hernandez is a 87 year old year-old male with PMH notable for seropositive erosive (CCP, RF) RA, OA, and BPH who presents to Rheumatology Clinic for evaluation of pain in B/l wrists. He states that he has had RA for about 15 years and was first started on oral medications. 12 years ago he was started on Rituximab. He has not had any reactions to the infusion and says he gets about 4 months of relief after the infusion. Main complaint is right wrist pain which could be multifactorial (chronic damage, OA changes in addition to possible low to mild active RA based on exam given new data from different study about increase risk for serious COVID infection in pts on RTX -US done in 04/2021 that showed minimal active synovitis in wrists and PIPs level He was diagnosied with CHF and A fib He noticed more increased pain in his wrist while on Orencia which giving him difficulty in daily activities He is up to date on his vaccines and no recent infections per him Last RTX 1000 mg in 01/27/2021 Last Orenia infusion was done on 12/16/2022 He would like to retry RTX again since it used to help him more in the past - will update his hep and TB test Continue Plaquenil 2 tablets - his OCT was up to date DXA Axial Skeleton was normal I spent a total of 34 minutes on the date of the service which included preparing to see the patient, [id number] patient care, completing clinical documentation, obtaining and/or reviewing separately obtained history, performing a medically appropriate examination, counseling and educating the patient/family/caregiver and ordering medications, tests, or procedures. Maritza Bal MD Rheumatology staff December 27, 2022 documented in this encounter [facility] 10-18-2022 Miscellaneous Notes Patient phones requesting refills as follows: Requested Prescriptions Pending Prescriptions Disp Refills balsalazide (COLAZAL) 750 mg capsule 270 capsule 5 Sig: Take 3 capsules by mouth three times daily. Please review and advise. Vicky Harry Ma documented in this encounter [facility] 10-06-2022 Note HNO ID: [id number] Author: Santino Long MD Service: ? Author Type: Physician Type: Progress Notes Filed: 10/06/2022 9:13 AM Note Text: This note was created using [employer]. Subjective Lucinda Hernandez is a 86 year old male. He was feeling depressed due to recent health events, including TIA, atrial fibrillation, cardiomyopathy. He was on furosemide for a time, but this was discontinued a few weeks ago. He complained of chest congestion. Review of Systems Constitutional: Positive for fatigue. Negative for chills and fever. HENT: Positive for congestion. Respiratory: Positive for cough, chest tightness and shortness of breath. Cardiovascular: Negative for chest pain, palpitations and leg swelling. Gastrointestinal: Negative for nausea and vomiting. Genitourinary: Negative for difficulty urinating. Neurological: Positive for light-headedness. Negative for speech difficulty and headaches. Psychiatric/Behavioral: Positive for dysphoric mood. 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 Rheumatoid Arthritis Involving Multiple Sites With Positive Rheumatoid Factor (Hcc) Long-Term Use of Plaquenil Contact Dermatitis Gerd (Gastroesophageal Reflux Disease) Mild Intermittent Asthma Without Complication Former Smoker Renetta (Obstructive Sleep Apnea) Hypogammaglobulinemia (Hcc) A-Fib (Hcc) Cardiomyopathy (Hcc) Stage 3 Chronic Kidney Disease (Hcc) Atherosclerosis of [place] Coronary Artery of [place] Heart Without Angina Pectoris Lumbar Radiculopathy History of Tia (Transient Ischemic Attack) Current Outpatient Medications Medication Sig dapagliflozin propanediol (FARXIGA) 10 mg tablet Take 10 mg by mouth daily with breakfast. hydrOXYchloroQUINE (PLAQUENIL) 200 mg tablet Take 2 tablets every day Except on Tuesday take only one tablet spironolactone (ALDACTONE) 25 mg tablet Take 25 mg by mouth once daily. cholecalciferol, vitamin D3, (VITAMIN D3 ORAL) Take 1 tablet by mouth once daily. balsalazide (COLAZAL) 750 mg capsule Take 3 capsules by mouth three times daily. (Patient taking differently: Take 2,250 mg by mouth three times daily. Taking 2 tablet TID) metoprolol tartrate, short acting, (LOPRESSOR) 50 mg tablet Take 1 tablet by mouth twice daily. (Patient taking differently: Take 100 mg by mouth once daily.) apixaban (ELIQUIS) 5 mg tab(s) Take 1 tablet by mouth twice daily. Per cardiology mometasone (ELOCON) 0.1 % cream Apply 1 application to affected area once daily as needed. Clobetasol Propionate (TEMOVATE) 0.05 % external solution APPLY SOLUTION TO AREAS OF RASH ON THE SCALP ONCE DAILY lisinopril (ZESTRIL, PRINIVIL) 40 mg tablet Take 1 tablet by mouth once daily. No current facility-administered medications for this visit. Objective BP 104/68 (BP Site: Left Arm, BP Position: Sitting, BP Cuff Size: Large Adult) Pulse 92 Resp 18 Ht 184.4 cm (6' 0.6 ) Wt 76.7 kg (169 lb) BMI 22.54 kg/m? Physical Exam Constitutional: General: He is not in acute distress. HENT: Nose: No congestion or rhinorrhea. Eyes: Extraocular Movements: Extraocular movements intact. Conjunctiva/sclera: Conjunctivae normal. Neck: Vascular: No carotid bruit. Cardiovascular: Rate and Rhythm: Normal rate. Rhythm regularly irregular. Heart sounds: S1 normal and S2 normal. No murmur heard. Pulmonary: Breath sounds: Examination of the right-lower field reveals rales. Examination of the left-lower field reveals rales. Rales present. Abdominal: General: There is no distension. Palpations: Abdomen is soft. Tenderness: There is no abdominal tenderness. Musculoskeletal: Right lower leg: No edema. Left lower leg: No edema. Neurological: General: No focal deficit present. Mental Status: He is alert. Gait: Gait normal. Psychiatric: Attention and Perception: Attention normal. Mood and Affect: Mood is depressed. Speech: Speech normal. Behavior: Behavior normal. Assessment and Plan 1. Medicare annual wellness visit, subsequent - ICD9: V70.0, ICD10: Z00.00 (primary diagnosis) See wellness note. 2. Cardiomyopathy, unspecified type (HCC) - ICD9: 425.4, ICD10: I42.9 Non ischemic. CAD out of proportion to low EF. - FUROSEMIDE 40 MG TABLET. [facility] - Call for follow up with [facility] in one week. 3. Stage 3 chronic kidney disease, unspecified whether stage 3a or 3b CKD (HCC) - ICD9: 585.3, ICD10: N18.30 - eGFR: Stable - Monitor if staying of furosemide. Call for lab order if needed. 4. Atrial fibrillation, unspecified type (HCC) - ICD9: 427.31, ICD10: I48.91 Controlled. - METOPROLOL SUCCINATE ER 100 MG TABLET,EXTENDED RELEASE 24 HR 5. Essential hypertension - ICD9: 401.9, ICD10: I10 Low normal. - LISINOPRIL 40 MG TABLET. Redu (more content not included)... [facility] 10-06-2022 Note HNO ID: [id number] Author: Santino Long MD Service: ? Author Type: Physician Type: Progress Notes Filed: 10/06/2022 9:13 AM Note Text: Lucinda Hernandez is a 86 year old male here for a Medicare wellness visit. Health Risk Assessment In general, health is: Fair Concerns with balance: Several days Concerns with teeth or dentures: Not at all Concerns with sexual function: Not at all [place] anxious, stressed, angry, irritable, lonely, isolated, or had thoughts of hurting themself: Not at all Has little interest or pleasure in doing things: Several days Bothered by feeling down, depressed, or hopeless: Several days Needs help with grocery shopping, cooking, housework, bathing, grooming, dressing, eating, sitting or standing, walking, using the toilet, handling finances, taking medications, using the telephone, or driving: No Following safety precautions in the home environment and vehicle: removed throw rugs from floors, installed grab bars in the bathroom, handrails in stairwells, having adequate lighting, wearing seatbelt at all times?: Yes Smokes cigarettes, vapes, or chew tobacco: No Eats healthy foods including fruits, vegetables, whole grains, and fiber-rich foods: Several days Number of days per week engages in exercise: 1 day Average alcohol consumption: 4 or more times a week Current Providers Specialists: I have reviewed specialist-related care of the patient in the medical record. Current care team: Patient Care Team: Santino Long MD as PCP - General Dr. Bibi Bal, newspaper subscription solicitor. Dr. Chapin, optometry. Dr. Powers, cardiology. DONOVAN Wynne, gastroenterology. Dr. Michael Hogan, orthopedics. Medical/Family history review Reviewed and updated problem list, medical/surgical/family/social history, medications, and allergies. Opioid use review Patient is not currently using opioids. Depression screening Depression Screening PHQ-2 Score PHQ-9 Score MARK-2 Total Score 10/06/2022 2 9 2 Depression screening tool completed and reviewed. Based on score and interview, patient is at risk for depression. Screening tool discussed with patient, and I recommended counseling/psychology referral. Cognitive screening Mini Cog Score: 3 Functional Observation Was the patient's timed Up AND Go test unsteady or ? 12 seconds? No Advance Care Planning End of Life planning discussed, including patient's advanced directive wishes: Yes Measurements BP 104/68 Pulse 92 Resp 18 Ht 6' .6 (1.84m) Wt 169 lb (76.7kg) BMI 22.54 kg/(m2). Visual acuity (required for Welcome to Medicare): follows with optometry/ophthalmology Hearing Evaluation: wears hearing aids Assessment/Plan Medicare annual wellness visit, subsequent (Z00.00) - Counseled on healthy diet and regular exercise - Fall avoidance - Vaccines recommended COVID-19 and Tdap at pharmacy - Depression screening - Alcohol misuse screening and counseling [facility] 10-06-2022 Instructions Santino Long MD - 10/06/2022 8:52 AM EDT SEE MEDICATION CHANGES. SEE DR. POWERS IN ONE WEEK FOR HEART FAILURE. documented in this encounter [facility] 10-06-2022 History of Present illness Narrative This note was created using [employer]. Subjective Lucinda Hernandez is a 86 year old male. He was feeling depressed due to recent health events, including TIA, atrial fibrillation, cardiomyopathy. He was on furosemide for a time, but this was discontinued a few weeks ago. He complained of chest congestion. Review of Systems Constitutional: Positive for fatigue. Negative for chills and fever. HENT: Positive for congestion. Respiratory: Positive for cough, chest tightness and shortness of breath. Cardiovascular: Negative for chest pain, palpitations and leg swelling. Gastrointestinal: Negative for nausea and vomiting. Genitourinary: Negative for difficulty urinating. Neurological: Positive for light-headedness. Negative for speech difficulty and headaches. Psychiatric/Behavioral: Positive for dysphoric mood. 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 Rheumatoid Arthritis Involving Multiple Sites With Positive Rheumatoid Factor (Hcc) Long-Term Use of Plaquenil Contact Dermatitis Gerd (Gastroesophageal Reflux Disease) Mild Intermittent Asthma Without Complication Former Smoker Renetta (Obstructive Sleep Apnea) Hypogammaglobulinemia (Hcc) A-Fib (Hcc) Cardiomyopathy (Hcc) Stage 3 Chronic Kidney Disease (Hcc) Atherosclerosis of [place] Coronary Artery of [place] Heart Without Angina Pectoris Lumbar Radiculopathy History of Tia (Transient Ischemic Attack) Current Outpatient Medications Medication Sig dapagliflozin propanediol (FARXIGA) 10 mg tablet Take 10 mg by mouth daily with breakfast. hydrOXYchloroQUINE (PLAQUENIL) 200 mg tablet Take 2 tablets every day Except on Tuesday take only one tablet spironolactone (ALDACTONE) 25 mg tablet Take 25 mg by mouth once daily. cholecalciferol, vitamin D3, (VITAMIN D3 ORAL) Take 1 tablet by mouth once daily. balsalazide (COLAZAL) 750 mg capsule Take 3 capsules by mouth three times daily. (Patient taking differently: Take 2,250 mg by mouth three times daily. Taking 2 tablet TID) metoprolol tartrate, short acting, (LOPRESSOR) 50 mg tablet Take 1 tablet by mouth twice daily. (Patient taking differently: Take 100 mg by mouth once daily.) apixaban (ELIQUIS) 5 mg tab(s) Take 1 tablet by mouth twice daily. Per cardiology mometasone (ELOCON) 0.1 % cream Apply 1 application to affected area once daily as needed. Clobetasol Propionate (TEMOVATE) 0.05 % external solution APPLY SOLUTION TO AREAS OF RASH ON THE SCALP ONCE DAILY lisinopril (ZESTRIL, PRINIVIL) 40 mg tablet Take 1 tablet by mouth once daily. No current facility-administered medications for this visit. Objective BP 104/68 (BP Site: Left Arm, BP Position: Sitting, BP Cuff Size: Large Adult) Pulse 92 Resp 18 Ht 184.4 cm (6' 0.6 ) Wt 76.7 kg (169 lb) BMI 22.54 kg/m Physical Exam Constitutional: General: He is not in acute distress. HENT: Nose: No congestion or rhinorrhea. Eyes: Extraocular Movements: Extraocular movements intact. Conjunctiva/sclera: Conjunctivae normal. Neck: Vascular: No carotid bruit. Cardiovascular: Rate and Rhythm: Normal rate. Rhythm regularly irregular. Heart sounds: S1 normal and S2 normal. No murmur heard. Pulmonary: Breath sounds: Examination of the right-lower field reveals rales. Examination of the left-lower field reveals rales. Rales present. Abdominal: General: There is no distension. Palpations: Abdomen is soft. Tenderness: There is no abdominal tenderness. Musculoskeletal: Right lower leg: No edema. Left lower leg: No edema. Neurological: General: No focal deficit present. Mental Status: He is alert. Gait: Gait normal. Psychiatric: Attention and Perception: Attention normal. Mood and Affect: Mood is depressed. Speech: Speech normal. Behavior: Behavior normal. Assessment and Plan 1. Medicare annual wellness visit, subsequent - ICD9: V70.0, ICD10: Z00.00 (primary diagnosis) See wellness note. 2. Cardiomyopathy, unspecified type (HCC) - ICD9: 425.4, ICD10: I42.9 Non ischemic. CAD out of proportion to low EF. - FUROSEMIDE 40 MG TABLET. [facility] - Call for follow up with [facility] in one week. 3. Stage 3 chronic kidney disease, unspecified whether stage 3a or 3b CKD (HCC) - ICD9: 585.3, ICD10: N18.30 - eGFR: Stable - Monitor if staying of furosemide. Call for lab order if needed. 4. Atrial fibrillation, unspecified type (HCC) - ICD9: 427.31, ICD10: I48.91 Controlled. - METOPROLOL SUCCINATE ER 100 MG TABLET,EXTENDED RELEASE 24 HR 5. Essential hypertension - ICD9: 401.9, ICD10: I10 Low normal. - LISINOPRIL 40 MG TABLET. Reduce dose to 1/2 tablet. 6. Atherosclerosis of [place] coronary artery of [place] heart without angina pectoris - ICD9: 414.01, ICD10: I25.10 50%. No intervention was needed. 7. Lumbar radiculopathy - ICD9: 724.4, ICD10: M54.16 Chronic low back pain - Improving post injection by Dr. Hogan. 8. History of TIA (transient ischemic attack) - ICD9: V12.54, ICD10: Z86.73 Back on apixiban. Santino Long MD Lucinda Hernandez is a 86 year old male here for a Medicare wellness visit. Health Risk Assessment In general, health is: Fair Concerns with balance: Several days Concerns with teeth or dentures: Not at all Concerns with sexual function: Not at all [place] anxious, stressed, angry, irritable, lonely, isolated, or had thoughts of hurting themself: Not at all Has little interest or pleasure in doing things: Several days Bothered by feeling down, depressed, or hopeless: Several days Needs help with grocery shopping, cooking, housework, bathing, grooming, dressing, eating, sitting or standing, walking, using the toilet, handling finances, taking medications, using the telephone, or driving: No Following safety precautions in the home environment and vehicle: removed throw rugs from floors, installed grab bars in the bathroom, handrails in stairwells, having adequate lighting, wearing seatbelt at all times?: Yes Smokes cigarettes, vapes, or chew tobacco: No Eats healthy foods including fruits, vegetables, whole grains, and fiber-rich foods: Several days Number of days per week engages in exercise: 1 day Average alcohol consumption: 4 or more times a week Current Providers Specialists: I have reviewed specialist-related care of the patient in the medical record. Current care team: Patient Care Team: Santino Long MD as PCP - General Dr. Bibi Bal, newspaper subscription solicitor. Dr. Chapin, optometry. Dr. Powers, cardiology. DONOVAN Wynne, gastroenterology. Dr. Michael Hogan, orthopedics. Medical/Family history review Reviewed and updated problem list, medical/surgical/family/social history, medications, and allergies. Opioid use review Patient is not currently using opioids. Depression screening Depression Screening PHQ-2 Score PHQ-9 Score MARK-2 Total Score 10/06/2022 2 9 2 Depression screening tool completed and reviewed. Based on score and interview, patient is at risk for depression. Screening tool discussed with patient, and I recommended counseling/psychology referral. Cognitive screening Mini Cog Score: 3 Functional Observation Was the patient's timed Up & Go test unsteady or ? 12 seconds? No Advance Care Planning End of Life planning discussed, including patient's advanced directive wishes: Yes Measurements BP 104/68 Pulse 92 Resp 18 Ht 6' .6 (1.84m) Wt 169 lb (76.7kg) BMI 22.54 kg/(m^2). Visual acuity (required for Welcome to Medicare): follows with optometry/ophthalmology Hearing Evaluation: wears hearing aids Assessment/Plan Medicare annual wellness visit, subsequent (Z00.00) - Counseled on healthy diet and regular exercise - Fall avoidance - Vaccines recommended COVID-19 and Tdap at pharmacy - Depression screening - Alcohol misuse screening and counseling documented in this encounter [facility] 08-03-2022 Note HNO ID: [id number] Author: Tana Gongora PA-C Service: ? Author Type: Physician Lemon Grower Type: Progress Notes Filed: 08/03/2022 2:43 PM Note Text: CHIEF COMPLAINT: Patient presents with: Recheck: Patient still having a little bit of stomach pain and loose stools. Recently dx with weakened heart history updated HPI Lucinda Hernandez is a 86 year old male here today for Recheck (Patient still having a little bit of stomach pain and loose stools. Recently dx with weakened heart history updated). Followed in GI office for collagenous colitis. EGD/Colon 10/2021 demonstrated findings of collagenous colitis, neg. For Celiac/H.pylori. Was started on trial of Entocort as well as mesalamine 11/2021. Colazal worked well to help regulate his bowel habits. Attempted taper last OV, pt requested more refills of med around 07/09/2022. Taking two tab Colazal TID with good regular Bms. Bms are 1-2 per day, formed to loose, no blood/black coloring. Component Latest Ref Rng AND Units 04/29/2022 Calprotectin, Fecal 0 - 50 mg/kg 218.7 (H) MRE 02/2022 IMPRESSION: NO ACTIVE INFLAMMATORY SMALL BOWEL CROHN'S DISEASE. PENETRATING DISEASE: ABSENT EGD/Colon 10/2021 FINAL DIAGNOSIS A. Duodenum, biopsy: - Small bowel mucosa with no diagnostic alteration. - No evidence of celiac sprue. B. Stomach, biopsy: - Antral mucosa with no diagnostic alteration. - No evidence of H. pylori. C. Lower esophagus, biopsy: - Squamous mucosa with no diagnostic alteration. - No evidence of intestinal metaplasia or dysplasia. D. Terminal ileum, biopsy: - Collagenous colitis. - No ileal mucosa present. E. Random colon, biopsy: - Small intestinal mucosa with active inflammation and increased apoptotic activity. - See comment. OV 04/2022 Lucinda Hernandez is a 86 year old male here today for Recheck (MRI 03/17/22 Labs 02/10/22. Pain on the left side near his groin going into his back hip). EGD/Colon 10/2021 demonstrated findings of collagenous colitis, neg. For Celiac/H.pylori. Was started on trial of Entocort as well as mesalamine 11/2021. Feels as though Colazal is helping. Was not able to pick remover Entocort due to cost. Bms are currently 2-3 per day, formed, no bright red blood, dark in color. Has been taking 2 caps Colazal TID for the past 4 weeks. Notes some intermittent back pains for which he has appt with Ortho. Worse when walking. MRE 02/2022 IMPRESSION: NO ACTIVE INFLAMMATORY SMALL BOWEL CROHN'S DISEASE. PENETRATING DISEASE: ABSENT EGD/Colon 10/2021 FINAL DIAGNOSIS A. Duodenum, biopsy: - Small bowel mucosa with no diagnostic alteration. - No evidence of celiac sprue. B. Stomach, biopsy: - Antral mucosa with no diagnostic alteration. - No evidence of H. pylori. C. Lower esophagus, biopsy: - Squamous mucosa with no diagnostic alteration. - No evidence of intestinal metaplasia or dysplasia. D. Terminal ileum, biopsy: - Collagenous colitis. - No ileal mucosa present. E. Random colon, biopsy: - Small intestinal mucosa with active inflammation and increased apoptotic activity. - See comment. Current Outpatient Medications Medication Sig hydrOXYchloroQUINE (PLAQUENIL) 200 mg tablet Take 2 tablets every day Except on Tuesday take only one tablet balsalazide (COLAZAL) 750 mg capsule Take 3 capsules by mouth three times daily. (Patient taking differently: Take 2,250 mg by mouth three times daily. Taking 1 tablet TID) metoprolol tartrate, short acting, (LOPRESSOR) 50 mg tablet Take 1 tablet by mouth twice daily. apixaban (ELIQUIS) 5 mg tab(s) Take 1 tablet by mouth twice daily. Per cardiology mometasone (ELOCON) 0.1 % cream Apply 1 application to affected area once daily as needed. Clobetasol Propionate (TEMOVATE) 0.05 % external solution APPLY SOLUTION TO AREAS OF RASH ON THE SCALP ONCE DAILY lisinopril (ZESTRIL, PRINIVIL) 40 mg tablet Take 1 tablet by mouth once daily. No current facility-administered medications for this visit. ALLERGIES Allergen Reactions Enbrel [Etanercept] Rash Social History Tobacco Use Smoking status: Former Types: Cigarettes Quit date: 03/19/1963 Years since quittin.4 Smokeless tobacco: Never Tobacco comments: 1 ppd Vaping Use Vaping Use: Never used Substance Use Topics Alcohol use: Yes Alcohol/week: 35.0 standard drinks Types: 21 Standard drinks or equivalent, 14 Glasses of Wine (5oz) per week Comment: Daily Drug use: No PAST MEDICAL HISTORY Diagnosis Date A-fib (HCC) 06/18/2022 06/18/22-newly diagnosed. 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 Denise Gama. Synvisc injections. HYPERSOMNI W SLEEP APNEA 03/19/2003 HYPERTENSION NOS 06/15/2005 Rheumatoid arthritis involving multiple sites with positive rheumatoid factor (HCC) 01/29/2015 CCP +, RF +, erosive. Ear (more content not included)... [facility] 07-06-2022 Note HNO ID: [id number] Author: Santino Long MD Service: ? Author Type: Physician Type: Progress Notes Filed: 07/06/2022 10:37 AM Note Text: This note was created using [employer]. Subjective Lucinda Hernandez is a 86 year old male. He was found to be in atrial fibrillation before a procedure. He was treated for RVR in the ER, and started seeing Dr. Powers for cardiology care. His medication list was updated. He felt well, and was scheduled for a stress test and echocardiogram next month. Review of Systems Constitutional: Negative for fatigue. HENT: Negative for nosebleeds. Respiratory: Negative for chest tightness and shortness of breath. Cardiovascular: Positive for leg swelling. Negative for chest pain and palpitations. Gastrointestinal: Negative for blood in stool. Genitourinary: Negative for hematuria. Neurological: Negative for dizziness and headaches. Hematological: Bruises/bleeds easily. 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 Per cardiology mometasone (ELOCON) 0.1 % cream Apply 1 application to affected area once daily as needed. balsalazide (COLAZAL) 750 mg capsule Take 3 capsules by mouth three times daily. hydrOXYchloroQUINE (PLAQUENIL) 200 mg tablet Take 2 tablets every day Except on Tuesday take only one tablet Clobetasol Propionate (TEMOVATE) 0.05 % external solution APPLY SOLUTION TO AREAS OF RASH ON THE SCALP ONCE DAILY lisinopril (ZESTRIL, PRINIVIL) 40 mg tablet Take 1 tablet by mouth once daily. metoprolol tartrate, short acting, (LOPRESSOR) 50 mg tablet Take 1 tablet by mouth twice daily. No current facility-administered medications for this visit. Objective BP 98/64 (BP Site: Left Arm, BP Position: Sitting, BP Cuff Size: Large Adult) Pulse 68 Resp 12 Wt 79.3 kg (174 lb 14.4 oz) BMI 23.72 kg/m? Physical Exam Constitutional: General: He is not in acute distress. Appearance: He is not ill-appearing. Cardiovascular: Rate and Rhythm: Normal rate. Rhythm regularly irregular. Heart sounds: S1 normal and S2 normal. No murmur heard. Pulmonary: Effort: No respiratory distress. Breath sounds: Examination of the right-lower field reveals rhonchi. Rhonchi present. Musculoskeletal: Right lower leg: No edema. Left lower leg: No edema. Neurological: Mental Status: He is alert. Gait: Gait normal. Assessment and Plan 1. Atrial fibrillation, unspecified type (HCC) - ICD9: 427.31, ICD10: I48.91 (primary diagnosis) Rate controlled, anticoagulated. - METOPROLOL TARTRATE 50 MG TABLET - Questions about rate control, rhythm control, and risks of anticoagulation were discussed. 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 2. Hypogammaglobulinemia (HCC) - ICD9: 279.00, ICD10: D80.[address] Kim's recommendations, and no treatment is needed. Tdap recommended. 3. Essential hypertension - ICD9: 401.9, ICD10: I10 - good control - Call for lower BP readings or symptoms of low BP. Santino Long MD [facility] 07-06-2022 History of Present illness Narrative This note was created using [employer]. Subjective Lucinda Hernandez is a 86 year old male. He was found to be in atrial fibrillation before a procedure. He was treated for RVR in the ER, and started seeing Dr. Powers for cardiology care. His medication list was updated. He felt well, and was scheduled for a stress test and echocardiogram next month. Review of Systems Constitutional: Negative for fatigue. HENT: Negative for nosebleeds. Respiratory: Negative for chest tightness and shortness of breath. Cardiovascular: Positive for leg swelling. Negative for chest pain and palpitations. Gastrointestinal: Negative for blood in stool. Genitourinary: Negative for hematuria. Neurological: Negative for dizziness and headaches. Hematological: Bruises/bleeds easily. 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 Per cardiology mometasone (ELOCON) 0.1 % cream Apply 1 application to affected area once daily as needed. balsalazide (COLAZAL) 750 mg capsule Take 3 capsules by mouth three times daily. hydrOXYchloroQUINE (PLAQUENIL) 200 mg tablet Take 2 tablets every day Except on Tuesday take only one tablet Clobetasol Propionate (TEMOVATE) 0.05 % external solution APPLY SOLUTION TO AREAS OF RASH ON THE SCALP ONCE DAILY lisinopril (ZESTRIL, PRINIVIL) 40 mg tablet Take 1 tablet by mouth once daily. metoprolol tartrate, short acting, (LOPRESSOR) 50 mg tablet Take 1 tablet by mouth twice daily. No current facility-administered medications for this visit. Objective BP 98/64 (BP Site: Left Arm, BP Position: Sitting, BP Cuff Size: Large Adult) Pulse 68 Resp 12 Wt 79.3 kg (174 lb 14.4 oz) BMI 23.72 kg/m Physical Exam Constitutional: General: He is not in acute distress. Appearance: He is not ill-appearing. Cardiovascular: Rate and Rhythm: Normal rate. Rhythm regularly irregular. Heart sounds: S1 normal and S2 normal. No murmur heard. Pulmonary: Effort: No respiratory distress. Breath sounds: Examination of the right-lower field reveals rhonchi. Rhonchi present. Musculoskeletal: Right lower leg: No edema. Left lower leg: No edema. Neurological: Mental Status: He is alert. Gait: Gait normal. Assessment and Plan 1. Atrial fibrillation, unspecified type (HCC) - ICD9: 427.31, ICD10: I48.91 (primary diagnosis) Rate controlled, anticoagulated. - METOPROLOL TARTRATE 50 MG TABLET - Questions about rate control, rhythm control, and risks of anticoagulation were discussed. 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 2. Hypogammaglobulinemia (HCC) - ICD9: 279.00, ICD10: D80.[address] Kim's recommendations, and no treatment is needed. Tdap recommended. 3. Essential hypertension - ICD9: 401.9, ICD10: I10 - good control - Call for lower BP readings or symptoms of low BP. Santino Long MD documented in this encounter [facility] 05-03-2022 Miscellaneous Notes JHONATHAN: 12/29/2021 Last refill: 08/28/2021 QTY: 90 Refills: 1 documented in this encounter [facility] 05-03-2022 Miscellaneous Notes documented in this encounter [facility] 04-29-2022 Note HNO ID: [id number] Author: Maritza Bal MD Service: ? Author Type: Physician Type: Progress Notes Filed: 04/29/2022 11:40 AM Note Text: [facility] [place] Department of Rheumatic and Immunologic Diseases Established patient: RA CC: Pain in B/l Wrists Background history: Lucinda Hernandez is a 86 year old year-old male with PMH notable for seropositive erosive (CCP, RF) RA, OA, and BPH who presents to Rheumatology Clinic for evaluation of pain in B/l wrists. He states that he has had RA for about 15 years and was first started on oral medications. 12 years ago he was started on Rituximab. He has not had any reactions to the infusion and says he gets about 4 months of relief after the infusion. He was recently diagnosed with Pneumonia and was put on antibiotics. He says he is improving. He has stopped taking his Sulfasalazine because the pharmacy has been out of stock and was told to increase his Plaquenil dose by 1/2 a tablet. He says this has been going well so far. Treatment history of RA Early Rx in 2002: SSZ and plaquenil. Progression of dz 06/2010- tried Enbrel x ~ 1 months (rash -stopped). RTX 1g x2: 01/2011, 08/2011, 03/2012, 11/2012, 06/2013, 01/2014, 07/2014, 01/2015, 08/2015, 03/2016, 08/2016, 08/2017 RTX 1g x1: 02/2017 Last infusions on 06/11, 06/2020 1 g each On HCQ 300 mg - last OCT exam was done locally and was normal - last one was scanned in our documment was in 04/2019 Off of SSZ Takes naproxen every day Interval history April 29, 2022 Doing okay on Orencia Continues to have intermittent right wrist pain. Other joints are okay except last month he noticed pain in his left hip (groin and outside) which has been giving him hard time walking. He takes tylenol and naproxen and is scheduled to see ortho next week He got diagnosed with collagenous colitis which has been well controlled with bid medications Last RTX 1000 mg in 01/27/2021 US in 04/2021 showed minimal active synovitis Review of Systems: Answers submitted by the patient for this visit: Review of Systems Rheumatology (Submitted on 04/23/2022) Fever : No Recent Unintentional Weight Change: Yes Eye Pain: No Eye Redness: No Vision Disturbance: No Eye Dryness: No Nose Bleeds: No Sores in your Mouth: No Trouble Swallowing: No Dry Mouth: No Chest Pain: No Leg Swelling: No A Cough: No Shortness of Breath: No Pain with Breathing: No Heartburn: No Abdominal Pain: Yes Diarrhea: Yes Black Tarry Stools: Yes Blood in Urine: No Pain or Burning with Urination: No Joint Pain or Stiffness: Yes Muscle Weakness: Yes Muscle Aches: Yes Joint Swelling: No Morning Stiffness in Joints: No A Rash: No Skin Color Changes: No Hair Loss: Yes Nail Changes: No Headaches: No Numbness: No Memory Loss: Yes Swollen Glands: No Otherwise, a 12 point ROS was obtained and was negative. 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 Denise Gama. Synvisc injections. HYPERSOMNI W SLEEP APNEA 03/19/2003 HYPERTENSION NOS 06/15/2005 Rheumatoid arthritis involving multiple sites with positive rheumatoid factor (HCC) 01/29/2015 CCP +, RF +, erosive. Early Rx in 2002: SSZ and plaquenil. Progression of dz 06/2010- tried Enbrel x ~ 1 months (rash - stopped). RTX 01/2011, 08/2011, 03/2012, 11/2012, 06/2013, 01/2014, 07/2014, 01/2015, 08/2015, 03/2016 PAST SURGICAL HISTORY Procedure Laterality Date ARTHRP KNE CONDYLEANDPLATU MEDIALANDLAT COMPARTMENTS 12/2011 Bilateral COLONOSCOPY 08/09/2012 COLONOSCOPY 11/18/2021 COLONOSCOPY FLX DX W/COLLJ SPEC WHEN PFRMD 05/18/2005 EGD W/O BRSH SPEC VARICIES INJ 11/18/2021 PAST SURGICAL HISTORY OF Left 01/06/2001 Inguinal hernia x 2 PAST SURGICAL HISTORY OF 04/04/2003 Right foot surgery PAST SURGICAL HISTORY OF 06/23/2017 Right cataract surgery PAST SURGICAL HISTORY OF 07/04/2017 Left cataract surgery UVULECTOMY EXCISION UVULA 1987 [facility], Dr. Temple FAMILY HISTORY Problem Relation Age of Onset Diabetes Mother Coronary Artery Disease Mother [place] at age 82 Ischemic Heart Disease Father at age 66 other (pituitary tumor) Brother other (Other) Brother aspiration pneumonia Coronary Artery Disease Brother Hypertension Brother Colon Cancer No Family History Social History Tobacco Use Smoking status: Former Types: Cigarettes Quit date: 03/19/1963 Years since quittin.1 Smokeless tobacco: Never Tobacco comments: 1 ppd Vaping Use Vaping Use: Never used Substance Use Topics Alcohol use: Yes Alcohol/week: 35.0 standard drinks Types: 21 Standard drinks or equivalent, 14 Glasses of Wine (5oz) per week Comment: Daily Drug use: No MEDICATIONS: mometasone (ELOCON) 0.1 % cream Apply 1 application to affected area once daily a (more content not included)... [facility] 04-26-2022 Note HNO ID: [id number] Author: Tana Gongora PA-C Service: ? Author Type: Physician Lemon Grower Type: Progress Notes Filed: 04/26/2022 3:42 PM Note Text: CHIEF COMPLAINT: Patient presents with: Recheck: MRI 03/17/22 Labs 02/10/22. Pain on the left side near his groin going into his back hip HPI Lucinda Hernandez is a 86 year old male here today for Recheck (MRI 03/17/22 Labs 02/10/22. Pain on the left side near his groin going into his back hip). EGD/Colon 10/2021 demonstrated findings of collagenous colitis, neg. For Celiac/H.pylori. Was started on trial of Entocort as well as mesalamine 11/2021. Feels as though Colazal is helping. Was not able to pick remover Entocort due to cost. Bms are currently 2-3 per day, formed, no bright red blood, dark in color. Has been taking 2 caps Colazal TID for the past 4 weeks. Notes some intermittent back pains for which he has appt with Ortho. Worse when walking. MRE 02/2022 IMPRESSION: NO ACTIVE INFLAMMATORY SMALL BOWEL CROHN'S DISEASE. PENETRATING DISEASE: ABSENT EGD/Colon 10/2021 FINAL DIAGNOSIS A. Duodenum, biopsy: - Small bowel mucosa with no diagnostic alteration. - No evidence of celiac sprue. B. Stomach, biopsy: - Antral mucosa with no diagnostic alteration. - No evidence of H. pylori. C. Lower esophagus, biopsy: - Squamous mucosa with no diagnostic alteration. - No evidence of intestinal metaplasia or dysplasia. D. Terminal ileum, biopsy: - Collagenous colitis. - No ileal mucosa present. E. Random colon, biopsy: - Small intestinal mucosa with active inflammation and increased apoptotic activity. - See comment. OV 01/2022 Lucinda Hernandez is a 86 year old male who presents for Abdominal Pain (Diarrhea ) and Anemia (Rheumatoid arthritis with positive rheumatoid factor ). Admits to diarrhea for the past 3 mos. EGD/Colon 10/2021 demonstrated findings of collagenous colitis, neg. For Celiac/H.pylori. Was started on trial of Entocort as well as mesalamine 11/2021. Feels as though Colazal is helping somewhat. Was not able to pick remover Entocort due to cost. Bms are currently 2-3 per day, black in color, loose to formed. Following with Heme for VEENA. Has been taking Naprosyn chronically for RA. Unintentional weight loss of 30 lbs in the past 3 mos. EGD/Colon 10/2021 FINAL DIAGNOSIS A. Duodenum, biopsy: - Small bowel mucosa with no diagnostic alteration. - No evidence of celiac sprue. B. Stomach, biopsy: - Antral mucosa with no diagnostic alteration. - No evidence of H. pylori. C. Lower esophagus, biopsy: - Squamous mucosa with no diagnostic alteration. - No evidence of intestinal metaplasia or dysplasia. D. Terminal ileum, biopsy: - Collagenous colitis. - No ileal mucosa present. E. Random colon, biopsy: - Small intestinal mucosa with active inflammation and increased apoptotic activity. - See comment. Current Outpatient Medications Medication Sig mometasone (ELOCON) 0.1 % cream Apply 1 application to affected area once daily as needed. dicyclomine (BENTYL) 10 mg capsule Take 1 capsule by mouth three times daily as needed (for abdominal pain). hydroCHLOROthiazide (HYDRODIURIL, ESIDRIX) 12.5 mg capsule Take 1 capsule by mouth once daily. balsalazide (COLAZAL) 750 mg capsule Take 3 capsules by mouth three times daily. hydrOXYchloroQUINE (PLAQUENIL) 200 mg tablet Take 2 tablets every day Except on Tuesday take only one tablet naproxen (NAPROSYN) 500 mg tablet TAKE 1 TABLET BY MOUTH TWICE DAILY NEEDED FOR JOINT PAIN Clobetasol Propionate (TEMOVATE) 0.05 % external solution APPLY SOLUTION TO AREAS OF RASH ON THE SCALP ONCE DAILY lisinopril (ZESTRIL, PRINIVIL) 40 mg tablet Take 1 tablet by mouth once daily. amLODIPine (NORVASC) 5 mg tablet Take 1 tablet by mouth once daily. glucagon (GLUCAGEN) 1 mg/mL injection Inject 1 mg intravenously one time only for 1 dose. For MRI Enterography, Inject 1 mg intravenously, as directed. Slow push at the appropriate time during MRI Scan diphenoxylate-atropine (LOMOTIL) 2.5-0.025 mg per tablet Take 1 tablet by mouth three times daily as needed for diarrhea for up to 7 days. No current facility-administered medications for this visit. 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 Denise Gama. Synvisc injections. HYPERSOMNI W SLEEP APNEA 03/19/2003 HYPERTENSION NOS (more content not included)... [facility] 04-26-2022 History of Present illness Narrative CHIEF COMPLAINT: Patient presents with: Recheck: MRI 03/17/22 Labs 02/10/22. Pain on the left side near his groin going into his back hip HPI Lucinda Hernandez is a 86 year old male here today for Recheck (MRI 03/17/22 Labs 02/10/22. Pain on the left side near his groin going into his back hip). EGD/Colon 10/2021 demonstrated findings of collagenous colitis, neg. For Celiac/H.pylori. Was started on trial of Entocort as well as mesalamine 11/2021. Feels as though Colazal is helping. Was not able to pick remover Entocort due to cost. Bms are currently 2-3 per day, formed, no bright red blood, dark in color. Has been taking 2 caps Colazal TID for the past 4 weeks. Notes some intermittent back pains for which he has appt with Ortho. Worse when walking. MRE 02/2022 IMPRESSION: NO ACTIVE INFLAMMATORY SMALL BOWEL CROHN'S DISEASE. PENETRATING DISEASE: ABSENT EGD/Colon 10/2021 FINAL DIAGNOSIS A. Duodenum, biopsy: - Small bowel mucosa with no diagnostic alteration. - No evidence of celiac sprue. B. Stomach, biopsy: - Antral mucosa with no diagnostic alteration. - No evidence of H. pylori. C. Lower esophagus, biopsy: - Squamous mucosa with no diagnostic alteration. - No evidence of intestinal metaplasia or dysplasia. D. Terminal ileum, biopsy: - Collagenous colitis. - No ileal mucosa present. E. Random colon, biopsy: - Small intestinal mucosa with active inflammation and increased apoptotic activity. - See comment. OV 01/2022 Lucinda Hernandez is a 86 year old male who presents for Abdominal Pain (Diarrhea ) and Anemia (Rheumatoid arthritis with positive rheumatoid factor ). Admits to diarrhea for the past 3 mos. EGD/Colon 10/2021 demonstrated findings of collagenous colitis, neg. For Celiac/H.pylori. Was started on trial of Entocort as well as mesalamine 11/2021. Feels as though Colazal is helping somewhat. Was not able to pick remover Entocort due to cost. Bms are currently 2-3 per day, black in color, loose to formed. Following with Heme for VEENA. Has been taking Naprosyn chronically for RA. Unintentional weight loss of 30 lbs in the past 3 mos. EGD/Colon 10/2021 FINAL DIAGNOSIS A. Duodenum, biopsy: - Small bowel mucosa with no diagnostic alteration. - No evidence of celiac sprue. B. Stomach, biopsy: - Antral mucosa with no diagnostic alteration. - No evidence of H. pylori. C. Lower esophagus, biopsy: - Squamous mucosa with no diagnostic alteration. - No evidence of intestinal metaplasia or dysplasia. D. Terminal ileum, biopsy: - Collagenous colitis. - No ileal mucosa present. E. Random colon, biopsy: - Small intestinal mucosa with active inflammation and increased apoptotic activity. - See comment. Current Outpatient Medications Medication Sig mometasone (ELOCON) 0.1 % cream Apply 1 application to affected area once daily as needed. dicyclomine (BENTYL) 10 mg capsule Take 1 capsule by mouth three times daily as needed (for abdominal pain). hydroCHLOROthiazide (HYDRODIURIL, ESIDRIX) 12.5 mg capsule Take 1 capsule by mouth once daily. balsalazide (COLAZAL) 750 mg capsule Take 3 capsules by mouth three times daily. hydrOXYchloroQUINE (PLAQUENIL) 200 mg tablet Take 2 tablets every day Except on Tuesday take only one tablet naproxen (NAPROSYN) 500 mg tablet TAKE 1 TABLET BY MOUTH TWICE DAILY NEEDED FOR JOINT PAIN Clobetasol Propionate (TEMOVATE) 0.05 % external solution APPLY SOLUTION TO AREAS OF RASH ON THE SCALP ONCE DAILY lisinopril (ZESTRIL, PRINIVIL) 40 mg tablet Take 1 tablet by mouth once daily. amLODIPine (NORVASC) 5 mg tablet Take 1 tablet by mouth once daily. glucagon (GLUCAGEN) 1 mg/mL injection Inject 1 mg intravenously one time only for 1 dose. For MRI Enterography, Inject 1 mg intravenously, as directed. Slow push at the appropriate time during MRI Scan diphenoxylate-atropine (LOMOTIL) 2.5-0.025 mg per tablet Take 1 tablet by mouth three times daily as needed for diarrhea for up to 7 days. No current facility-administered medications for this visit. 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 Denise Gama. Synvisc injections. HYPERSOMNI W SLEEP APNEA 03/19/2003 HYPERTENSION NOS 06/15/2005 Rheumatoid arthritis involving multiple sites with positive rheumatoid factor (HCC) 01/29/2015 CCP +, RF +, erosive. Early Rx in 2002: SSZ and plaquenil. Progression of dz 06/2010- tried Enbrel x ~ 1 months (rash - stopped). RTX 01/2011, 08/2011, 03/2012, 11/2012, 06/2013, 01/2014, 07/2014, 01/2015, 08/2015, 03/2016 PAST SURGICAL HISTORY Procedure Laterality Date ARTHRP KNE CONDYLE&PLATU MEDIAL&LAT COMPARTMENTS 12/2011 Bilateral COLONOSCOPY 08/09/2012 COLONOSCOPY 11/18/2021 COLONOSCOPY FLX DX W/COLLJ SPEC WHEN PFRMD 05/18/2005 EGD W/O [facility] SPEC VARICIES INJ 11/18/2021 PAST SURGICAL HISTORY OF Left 01/06/2001 Inguinal hernia x 2 PAST SURGICAL HISTORY OF 04/04/2003 Right foot surgery PAST SURGICAL HISTORY OF 06/23/2017 Right cataract surgery PAST SURGICAL HISTORY OF 07/04/2017 Left cataract surgery UVULECTOMY EXCISION UVULA 1987 [facility], Dr. Temple FAMILY HISTORY Problem Relation Age of Onset Diabetes Mother Coronary Artery Disease Mother [place] at age 82 Ischemic Heart Disease Father at age 66 other (pituitary tumor) Brother other (Other) Brother aspiration pneumonia Coronary Artery Disease Brother Hypertension Brother Colon Cancer No Family History REVIEW OF SYSTEMS Review of Systems Gastrointestinal: Positive for abdominal pain. All other systems reviewed and are negative. PHYSICAL EXAM Pulse (!) 52 Ht 182.9 cm (6') Wt 78 kg (172 lb) BMI 23.33 kg/m Physical Exam Constitutional: General: He is not in acute distress. Appearance: Normal appearance. He is normal weight. He is not ill-appearing, toxic-appearing or diaphoretic. HENT: Head: Normocephalic and atraumatic. Nose: Nose normal. Eyes: General: No scleral icterus. Right eye: No discharge. Left eye: No discharge. Extraocular Movements: Extraocular movements intact. Conjunctiva/sclera: Conjunctivae normal. Pupils: Pupils are equal, round, and reactive to light. Cardiovascular: Rate and Rhythm: Normal rate and regular rhythm. Pulses: Normal pulses. Heart sounds: Normal heart sounds. No murmur heard. No friction rub. No gallop. Pulmonary: Effort: No respiratory distress. Breath sounds: Normal breath sounds. No stridor. No wheezing, rhonchi or rales. Chest: Chest wall: No tenderness. Abdominal: General: Abdomen is flat. Bowel sounds are normal. There is no distension. Palpations: Abdomen is soft. There is no mass. Tenderness: There is no abdominal tenderness. There is no right CVA tenderness, left CVA tenderness, guarding or rebound. Hernia: No hernia is present. Musculoskeletal: General: Normal range of motion. Cervical back: Normal range of motion and neck supple. Skin: General: Skin is warm and dry. Neurological: General: No focal deficit present. Mental Status: He is alert and oriented to person, place, and time. Psychiatric: Mood and Affect: Mood normal. Behavior: Behavior normal. Assessment/Plan (K52.831) Collagenous colitis (primary encounter diagnosis) 1. Collagenous colitis - CALPROTECTIN,FECAL - On Colazal 2 tabs TID with formed Bms/clinically doing well. Advised dropping to 1 tab TID over the next four weeks in attempt to taper off of medication - Check fecal calprotectin - Pt will mychart message me if any returning diarrhea with taper - Following with Rheum, receiving Fe infusions, offered obtaining labs today which they declined, they will wait until they see their Parer so they can have them drawn same day as our office does not have in house energy analyst available. - Consider capsule for any persistent anemia I spent a total of 20 minutes on the date of the service which included preparing to see the patient, [id number] patient care, completing clinical documentation, obtaining and/or reviewing separately obtained history, performing a medically appropriate examination, counseling and educating the patient/family/caregiver, ordering medications, tests, or procedures, communicating with other HCPs (not separately reported), independently interpreting results (not separately reported), communicating results to the patient/family/caregiver, and care coordination (not separately reported). Tana Gongora PA-C April 26, 2022 3:33 PM documented in this encounter [facility] 04-20-2022 Miscellaneous Notes Patient has been identified by name and date of : Yes, Patient phones for refill(s): Requested Prescriptions Pending Prescriptions Disp Refills mometasone (ELOCON) 0.1 % cream 60 g 0 Sig: Apply 1 application to affected area once daily as needed. Date of last office visit in primary care: 01/29/2022 No future appt scheduled. Last 2 Encounter Wt Readings: Date: Wt: 01/29/2022 73 kg (161 lb) 01/21/2022 72.8 kg (160 lb 6.4 oz) Previous labs/tests for medication: Not applicable Please advise. Thank you. Camila Ceballos LPN documented in this encounter [facility] 04-20-2022 Miscellaneous Notes Patient phones requesting refills as follows: Requested Prescriptions Pending Prescriptions Disp Refills dicyclomine (BENTYL) 10 mg capsule 30 capsule 2 Sig: Take 1 capsule by mouth three times daily as needed (for abdominal pain). Please review and advise. Vicky Harry Ma documented in this encounter [facility] 04-15-2022 Note HNO ID: [id number] Author: Shweta Rivers MA Service: ? 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 N/A Reason for Outreach HCC or suspected condition Payer: Payor: MEDICARE / Plan: MEDICARE A AND B / Product Type: Medicare / Care Gap Reviewed:: Follow-up appointment Reminder: Reminder note to check Health Maintenance for items below Health Maintenance items due: SPIROMETRY Never done DTAP,TDAP,TD(1 - Tdap) due on 03/05/2009 ADVANCE DIRECTIVE DISCUSSION Never done DEPRESSION ASSESSMENT Never done Navigation Signature: Shweta Rivers MA April 15, 2022 1:43 PM [facility] 04-15-2022 Note Patient Outreach (NE TNAV) LUCINDA HERNANDEZ ([id number]) 1935 M Date Time Provider Department 04/15/22 SHWETA RIVERS During your visit today, we recorded the following information about you: Shweta Rivers MA 04/15/2022 1:46 PM Signed POPULATION HEALTH NAVIGATION OUTREACH Action/April 15, 2022 1:44 PM HCC Gaps 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 N/A Reason for Outreach HCC or suspected condition Payer: Payor: MEDICARE / Plan: MEDICARE A AND B / Product Type: Medicare / Care Gap Reviewed:: Follow-up appointment Reminder: Reminder note to check Health Maintenance for items below Health Maintenance items due: SPIROMETRY Never done DTAP,TDAP,TD(1 - Tdap) due on 03/05/2009 ADVANCE DIRECTIVE DISCUSSION Never done DEPRESSION ASSESSMENT Never done Navigation Signature: Shweta Rivers MA April 15, 2022 1:43 PM Allergies As of Date: 04/15/2022 Noted Allergy Reaction ENBREL (ETANERCEPT) 10/14/2010 2 - Rash Date Reviewed: 03/23/2022 Reviewed by: Batsheva Key RN - Fully Assessed Reason for Visit: Population Health Navigation Outreach [3910] Cmt: HCC Gap Outreach Prescriptions as of 04/15/2022 - hydroCHLOROthiazide (HYDRODIURIL, ESIDRIX) 12.5 mg capsule Take 1 capsule by mouth once daily. - balsalazide (COLAZAL) 750 mg capsule Take 3 capsules by mouth three times daily. - hydrOXYchloroQUINE (PLAQUENIL) 200 mg tablet Take 2 tablets every day Except on Tuesday take only one tablet - glucagon (GLUCAGEN) 1 mg/mL injection Inject 1 mg intravenously one time only for 1 dose. For MRI Enterography, Inject 1 mg intravenously, as directed. Slow push at the appropriate time during MRI Scan - naproxen (NAPROSYN) 500 mg tablet TAKE 1 TABLET BY MOUTH TWICE DAILY NEEDED FOR JOINT PAIN - Clobetasol Propionate (TEMOVATE) 0.05 % external solution APPLY SOLUTION TO AREAS OF RASH ON THE SCALP ONCE DAILY - dicyclomine (BENTYL) 10 mg capsule Take 1 capsule by mouth three times daily as needed (for abdominal pain). - lisinopril (ZESTRIL, PRINIVIL) 40 mg tablet Take 1 tablet by mouth once daily. - amLODIPine (NORVASC) 5 mg tablet Take 1 tablet by mouth once daily. - diphenoxylate-atropine (LOMOTIL) 2.5-0.025 mg per tablet Take 1 tablet by mouth three times daily as needed for diarrhea for up to 7 days. - mometasone (ELOCON) 0.1 % cream Apply 1 application to affected area once daily as needed. 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] 12/26/2013 12/26/2013 Rheumatoid arthritis involving multiple sites w*01/29/2015 Cough [R05.9] 05/28/2015 03/22/2016 Testalgia, left [N50.819] 10/08/2015 10/27/2017 Visit for monitoring Rituxan therapy [Z51.81, Z*06/30/2016 09/01/2016 Visit for monitoring Rituxan therapy [Z51.81, Z*05/25/2017 08/31/2017 Long-term use of Plaquenil [Z79.899] 05/25/2017 Bradycardia [R00.1] 11/28/2018 Contact dermatitis [L25.9] 05/29/2020 Ground glass opacity present on imaging of lung*07/02/2021 GERD (gastroesophageal reflux disease) [K21.9] 07/06/2021 Mild intermittent asthma without complication [*07/06/2021 Viral pneumonia [J12.9] 07/06/2021 Anemia [D64.9] 07/06/2021 Former smoker [Z87.891] 07/06/2021 RENETTA (obstructive sleep apnea) [G47.33] 07/06/2021 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 N/A Reason for Outreach HCC or suspected condition Payer: Payor: MEDICARE / Plan: MEDICARE A AND B / Product Type: Medicare / Care Gap Reviewed:: Follow-up appointment Reminder: Reminder note to check Health Maintenance for items below Health Maintenance items due: SPIROMETRY Never done DTAP,TDAP,TD(1 - Tdap) due on 03/05/2009 ADVANCE DIRECTIVE DISCUSSION Never done DEPRESSION ASSESSMENT Never done Navigation Signature: Shweta Rivers MA April 15, 2022 1:43 PM documented in this encounter [facility] 03-17-2022 Note HNO ID: [id number] Author: Richard Jeter RN Service: Nursing Author Type: Registered Nurse Type: Progress Notes Filed: 03/17/2022 9:29 AM Note Text: Radiology Service Progress Note PATIENT NAME: Lucinda Hernandez DATE OF SERVICE: March 17, 2022 TIME: 9:16 AM PATIENT IDENTITY VERIFICATION COMPLETED USING TWO (2) STANDARD IDENTIFIERS: Name and Date of confirmed by patient verbally. PATIENT GENDER DATA: Male PATIENT RELEVANT IMPLANT DATA REVIEWED: Not Applicable MEDICATIONS REVIEWED: NO PROCEDURE: Enterography Oral contrast prep: Breeza (2) 500ml bottles per protocol and Glucagon 1 mg IV PATIENT TOLERATED PROCEDURE: Without incident. PATIENT DISCHARGED TO: Home/Self Care SIGNED BY: Richard Jeter RN March 17, 2022 9:16 AM Radiology Service Progress Note DATE OF SERVICE: March 17, 2022 TIME: 9:19 AM PATIENT WEIGHT: 170 LBS FALL SCREENING: Has the patient had 2 falls in the last year or 1 fall with injury or currently using an Ambulatory Assistive Device (Walker, Cane, Wheelchair, Crutches, etc.)? No ALLERGIES: Reviewed and unchanged CONTRAST ALLERGY: No EXAM: MRI - CONTRAST TYPE: GROUP II IV SITE: Ambulatory: A peripheral IV was started in the Left forearm with a Angio cath: 22 gauge. IV SITE APPEARANCE: Clean,Dry and Intact SIGNATURE: Richard Jeter RN PATIENT NAME: Lucinda Hernandez DATE: March 17, 2022 TIME: 9:19 AM [facility] 03-17-2022 Note HNO ID: [id number] Author: Pankaj Jung, carpenter helper maintenance Service: Radiology Author Type: Technologist Type: Progress Notes Filed: 03/17/2022 11:14 AM Note Text: Radiology Service Progress Note PATIENT NAME: Lucinda Hernandez DATE OF SERVICE: March 17, 2022 TIME: 11:13 AM PATIENT IDENTITY VERIFICATION COMPLETED USING TWO (2) IDENTIFIERS: Name and Date of confirmed by patient verbally. FALL SCREENING: Has the patient had 2 falls in the last year or 1 fall with injury or currently using an Ambulatory Assistive Device (Walker, Cane, Wheelchair, Crutches, etc.)? No PATIENT GENDER DATA: Male PATIENT RELEVANT IMPLANT DATA REVIEWED: Yes RADIOLOGY DEPARTMENT: MR; Exam(s) Completed: Body: MRE PERIPHERAL IV DATA: Site assessment: Clean,Dry and Intact, Site disposition Discontinued SIGNED BY: Pankaj Jung carpenter helper maintenance March 17, 2022 11:13 AM [facility] 03-17-2022 History of Present illness Narrative Radiology Service Progress Note PATIENT NAME: Lucinda Hernandez DATE OF SERVICE: March 17, 2022 TIME: 9:16 AM PATIENT IDENTITY VERIFICATION COMPLETED USING TWO (2) STANDARD IDENTIFIERS: Name and Date of confirmed by patient verbally. PATIENT GENDER DATA: Male PATIENT RELEVANT IMPLANT DATA REVIEWED: Not Applicable MEDICATIONS REVIEWED: NO PROCEDURE: Enterography Oral contrast prep: Breeza (2) 500ml bottles per protocol and Glucagon 1 mg IV PATIENT TOLERATED PROCEDURE: Without incident. PATIENT DISCHARGED TO: Home/Self Care SIGNED BY: Richard Jeter RN March 17, 2022 9:16 AM Radiology Service Progress Note DATE OF SERVICE: March 17, 2022 TIME: 9:19 AM PATIENT WEIGHT: 170 LBS FALL SCREENING: Has the patient had 2 falls in the last year or 1 fall with injury or currently using an Ambulatory Assistive Device (Walker, Cane, Wheelchair, Crutches, etc.)? No ALLERGIES: Reviewed and unchanged CONTRAST ALLERGY: No EXAM: MRI - CONTRAST TYPE: GROUP II IV SITE: Ambulatory: A peripheral IV was started in the Left forearm with a Angio cath: 22 gauge. IV SITE APPEARANCE: Clean,Dry and Intact SIGNATURE: Richard Jeter RN PATIENT NAME: Lucinda Hernandez DATE: March 17, 2022 TIME: 9:19 AM documented in this encounter [facility] 03-17-2022 History of Present illness Narrative Radiology Service Progress Note PATIENT NAME: Lucinda Hernandez DATE OF SERVICE: March 17, 2022 TIME: 11:13 AM PATIENT IDENTITY VERIFICATION COMPLETED USING TWO (2) IDENTIFIERS: Name and Date of confirmed by patient verbally. FALL SCREENING: Has the patient had 2 falls in the last year or 1 fall with injury or currently using an Ambulatory Assistive Device (Walker, Cane, Wheelchair, Crutches, etc.)? No PATIENT GENDER DATA: Male PATIENT RELEVANT IMPLANT DATA REVIEWED: Yes RADIOLOGY DEPARTMENT: MR; Exam(s) Completed: Body: MRE PERIPHERAL IV DATA: Site assessment: Clean,Dry and Intact, Site disposition Discontinued SIGNED BY: Pankaj Jung carpenter helper maintenance March 17, 2022 11:13 AM documented in this encounter [facility] 03-17-2022 Miscellaneous Notes Encounter addended by: Richard Jeter RN on: 03/17/2022 11:35 AM Actions taken: Vitals modified documented in this encounter [facility] 02-23-2022 Miscellaneous Notes Using [facility] Requested Prescriptions Pending Prescriptions Disp Refills balsalazide (COLAZAL) 750 mg capsule 270 capsule 5 Sig: Take 3 capsules by mouth three times daily. Aye Bird CMA balsalazide 270 capsules 750mg [facility] $72.86 BIN [id number] [facility] Group [id number] documented in this encounter [facility] 01-29-2022 History of Present illness Narrative CC: Patient presents with: 2 month follow up - kidney levels HPI Lucinda Hernandez is a 86 year old male who presents today for above. In October he was diagnosed with collagenous colitis and was seen in office on 12/29 for chronic diarrhea. Was instructed to continue Colazal and follow up with GI. There he was instructed to stop NSAIDs and started on Bentyl PRN. He was supposed to have a CT of his abd today but due to his decreased kidney function, he was instructed to follow up with primary and that an MRI would be ordered. He continues to feel weak. States that his diarrhea has improved since being on medications. He is now having up to 2 bowel movements a day that are firming up. Still described as being very dark in color. He denies fever, chills, nausea, or vomiting. REVIEW OF SYSTEMS GENERAL: SEE HPI RESPIRATORY: Negative for cough, wheezing and shortness of breath CARDIOVASCULAR: Negative for chest pain, leg swelling and palpitations GI: SEE HPI : Negative for dysuria, frequency and incontinence All other systems negative. 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 Denise Gama. Synvisc injections. HYPERSOMNI W SLEEP APNEA 03/19/2003 HYPERTENSION NOS 06/15/2005 Rheumatoid arthritis involving multiple sites with positive rheumatoid factor (HCC) 01/29/2015 CCP +, RF +, erosive. Early Rx in 2002: SSZ and plaquenil. Progression of dz 06/2010- tried Enbrel x ~ 1 months (rash - stopped). RTX 01/2011, 08/2011, 03/2012, 11/2012, 06/2013, 01/2014, 07/2014, 01/2015, 08/2015, 03/2016 PAST SURGICAL HISTORY Procedure Laterality Date ARTHRP KNE CONDYLE&PLATU MEDIAL&LAT COMPARTMENTS 12/2011 Bilateral COLONOSCOPY 08/09/2012 COLONOSCOPY 11/18/2021 COLONOSCOPY FLX DX W/COLLJ SPEC WHEN PFRMD 05/18/2005 EGD W/O [facility] SPEC VARICIES INJ 11/18/2021 PAST SURGICAL HISTORY OF Left 01/06/2001 Inguinal hernia x 2 PAST SURGICAL HISTORY OF 04/04/2003 Right foot surgery PAST SURGICAL HISTORY OF 06/23/2017 Right cataract surgery PAST SURGICAL HISTORY OF 07/04/2017 Left cataract surgery UVULECTOMY EXCISION UVULA 1987 [facility], Dr. [place] ALLERGIES Enbrel [Etanercept] MEDICATIONS hydrOXYchloroQUINE (PLAQUENIL) 200 mg tablet Take 2 tablets every day Except on Tuesday take only one tablet glucagon (GLUCAGEN) 1 mg/mL injection Inject 1 mg intravenously one time only for 1 dose. For MRI Enterography, Inject 1 mg intravenously, as directed. Slow push at the appropriate time during MRI Scan naproxen (NAPROSYN) 500 mg tablet TAKE 1 TABLET BY MOUTH TWICE DAILY NEEDED FOR JOINT PAIN Clobetasol Propionate (TEMOVATE) 0.05 % external solution APPLY SOLUTION TO AREAS OF RASH ON THE SCALP ONCE DAILY dicyclomine (BENTYL) 10 mg capsule Take 1 capsule by mouth three times daily as needed (for abdominal pain). balsalazide (COLAZAL) 750 mg capsule Take 3 capsules by mouth three times daily. lisinopril (ZESTRIL, PRINIVIL) 40 mg tablet Take 1 tablet by mouth once daily. hydroCHLOROthiazide (HYDRODIURIL, ESIDRIX) 12.5 mg capsule Take 1 capsule by mouth once daily. amLODIPine (NORVASC) 5 mg tablet Take 1 tablet by mouth once daily. diphenoxylate-atropine (LOMOTIL) 2.5-0.025 mg per tablet Take 1 tablet by mouth three times daily as needed for diarrhea for up to 7 days. mometasone (ELOCON) 0.1 % cream Apply 1 application to affected area once daily as needed. FAMILY HISTORY Problem Relation Age of Onset Diabetes Mother Coronary Artery Disease Mother [place] at age 82 Ischemic Heart Disease Father at age 66 other (pituitary tumor) Brother other (Other) Brother aspiration pneumonia Coronary Artery Disease Brother Hypertension Brother Colon Cancer No Family History Social History Tobacco Use Smoking status: Former Types: Cigarettes Quit date: 03/19/1963 Years since quittin.9 Smokeless tobacco: Never Tobacco comments: 1 ppd Vaping Use Vaping Use: Never used Substance Use Topics Alcohol use: Yes Alcohol/week: 35.0 standard drinks Types: 21 Standard drinks or equivalent, 14 Glasses of Wine (5oz) per week Comment: Daily Drug use: No PHYSICAL EXAM BP 132/62 Pulse 69 Resp 16 Wt 73 kg (161 lb) BMI 21.84 kg/m General Appearance: well appearing, in no acute distress, alert Lungs: Lungs clear to auscultation. No wheezing, rhonchi, rales. Heart: RRR without murmur, gallop, or rubs. No ectopy Abdomen: Abdomen soft. Bowel sounds normal. No masses, organomegaly, Positive findings: tenderness mild LLQ/L groin DATA REVIEWED: Most recent labs Most recent gastroenterology note ASSESSMENT/PLAN: 1. Renal insufficiency - ICD9: 593.9, ICD10: N28.9 (primary diagnosis) Multifactorial. Stop Naproxen, stressed hydration Recheck in two weeks: - BASIC METABOLIC PNL - URINALYSIS, WITH MICROSCOPIC If kidney function still decreased will check ultrasound kidneys, consider referral to nephrology 2. Collagenous colitis - ICD9: 558.9, ICD10: K52.831 Marked improvement in diarrhea. Schedule MRE as ordered by GI. Follow-up as instructed 3. Chronic diarrhea - ICD9: 787.91, ICD10: K52.9 As above Prescription instructions reviewed with patient as applicable. Potential red flag symptoms discussed with the patient. Reviewed appropriate action plan to take if red flag symptoms occur. Patient agreeable to treatment plan. Liliana Patel APRN.CNP documented in this encounter [facility] 01-27-2022 Miscellaneous Notes Patients advised LVTCB Creatinine significantly elevated. Will not be able to have contrast imaging this week, will plan to cancel CT enterography. Ordered MRE with dotarem contrast as alternative to help with the kidneys. Advise f/u with PCP to monitor kidney function. Tana Gongora PA-C documented in this encounter [facility] 01-26-2022 History of Present illness Narrative . documented in this encounter [facility] 01-21-2022 History of Present illness Narrative CHIEF COMPLAINT: Patient presents with: Abdominal Pain: Diarrhea Anemia: Rheumatoid arthritis with positive rheumatoid factor HPI: Lucinda Hernandez is a 86 year old male who presents for Abdominal Pain (Diarrhea ) and Anemia (Rheumatoid arthritis with positive rheumatoid factor ). Admits to diarrhea for the past 3 mos. EGD/Colon 10/2021 demonstrated findings of collagenous colitis, neg. For Celiac/H.pylori. Was started on trial of Entocort as well as mesalamine 11/2021. Feels as though Colazal is helping somewhat. Was not able to pick remover Entocort due to cost. Bms are currently 2-3 per day, black in color, loose to formed. Following with Heme for VEENA. Has been taking Naprosyn chronically for RA. Unintentional weight loss of 30 lbs in the past 3 mos. EGD/Colon 10/2021 FINAL DIAGNOSIS A. Duodenum, biopsy: - Small bowel mucosa with no diagnostic alteration. - No evidence of celiac sprue. B. Stomach, biopsy: - Antral mucosa with no diagnostic alteration. - No evidence of H. pylori. C. Lower esophagus, biopsy: - Squamous mucosa with no diagnostic alteration. - No evidence of intestinal metaplasia or dysplasia. D. Terminal ileum, biopsy: - Collagenous colitis. - No ileal mucosa present. E. Random colon, biopsy: - Small intestinal mucosa with active inflammation and increased apoptotic activity. - See comment. Record Review: [facility] / Outside records reviewed. 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 Denise Gama. Synvisc injections. HYPERSOMNI W SLEEP APNEA 03/19/2003 HYPERTENSION NOS 06/15/2005 Rheumatoid arthritis involving multiple sites with positive rheumatoid factor (HCC) 01/29/2015 CCP +, RF +, erosive. Early Rx in 2002: SSZ and plaquenil. Progression of dz 06/2010- tried Enbrel x ~ 1 months (rash - stopped). RTX 01/2011, 08/2011, 03/2012, 11/2012, 06/2013, 01/2014, 07/2014, 01/2015, 08/2015, 03/2016 PAST SURGICAL HISTORY Procedure Laterality Date ARTHRP KNE CONDYLE&PLATU MEDIAL&LAT COMPARTMENTS 12/2011 Bilateral COLONOSCOPY 08/09/2012 COLONOSCOPY 11/18/2021 COLONOSCOPY FLX DX W/COLLJ SPEC WHEN PFRMD 05/18/2005 EGD W/O [facility] SPEC VARICIES INJ 11/18/2021 PAST SURGICAL HISTORY OF Left 01/06/2001 Inguinal hernia x 2 PAST SURGICAL HISTORY OF 04/04/2003 Right foot surgery PAST SURGICAL HISTORY OF 06/23/2017 Right cataract surgery PAST SURGICAL HISTORY OF 07/04/2017 Left cataract surgery UVULECTOMY EXCISION UVULA 1988 [facility], Dr[address] [place] Allergies: ALLERGIES Allergen Reactions Enbrel [Etanercept] Rash Medications: budesonide 9 mg TaDE naproxen (NAPROSYN) 500 mg tablet TAKE 1 TABLET BY MOUTH TWICE DAILY NEEDED FOR JOINT PAIN Clobetasol Propionate (TEMOVATE) 0.05 % external solution APPLY SOLUTION TO AREAS OF RASH ON THE SCALP ONCE DAILY balsalazide (COLAZAL) 750 mg capsule Take 3 capsules by mouth three times daily. lisinopril (ZESTRIL, PRINIVIL) 40 mg tablet Take 1 tablet by mouth once daily. hydroCHLOROthiazide (HYDRODIURIL, ESIDRIX) 12.5 mg capsule Take 1 capsule by mouth once daily. amLODIPine (NORVASC) 5 mg tablet Take 1 tablet by mouth once daily. hydrOXYchloroQUINE (PLAQUENIL) 200 mg tablet Take 1 tablet by mouth twice daily. diphenoxylate-atropine (LOMOTIL) 2.5-0.025 mg per tablet Take 1 tablet by mouth three times daily as needed for diarrhea for up to 7 days. mometasone (ELOCON) 0.1 % cream Apply 1 application to affected area once daily as needed. FAMILY HISTORY Problem Relation Age of Onset Diabetes Mother Coronary Artery Disease Mother [place] at age 82 Ischemic Heart Disease Father at age 66 other (pituitary tumor) Brother other (Other) Brother aspiration pneumonia Coronary Artery Disease Brother Hypertension Brother Colon Cancer No Family History Employer And Job Title: No employer specified (retired) Years Of Education Completed: Not specified Marital Status: with no children Social History Tobacco Use Smoking status: Former Types: Cigarettes Quit date: 03/19/1963 Years since quittin.8 Smokeless tobacco: Never Tobacco comments: 1 ppd Vaping Use Vaping Use: Never used Substance Use Topics Alcohol use: Yes Alcohol/week: 35.0 standard drinks Types: 21 Standard drinks or equivalent, 14 Glasses of Wine (5oz) per week Comment: Daily Drug use: No Review of Systems: Review of Systems Constitutional: Positive for activity change, appetite change, fatigue and unexpected weight change. HENT: Positive for hearing loss. Gastrointestinal: Positive for abdominal pain and diarrhea. Change in Bowel Habits All other systems reviewed and are negative. Are you taking any blood thinners? No Physical Examination: BP 142/72 Pulse 61 Ht 6' 0 (1.83m) Wt 160 lb 6.4 oz (72.8kg) BMI 21.75 kg/(m^2). Physical Exam Constitutional: General: He is not in acute distress. Appearance: Normal appearance. He is normal weight. He is not ill-appearing, toxic-appearing or diaphoretic. HENT: Head: Normocephalic and atraumatic. Nose: Nose normal. Eyes: General: No scleral icterus. Right eye: No discharge. Left eye: No discharge. Extraocular Movements: Extraocular movements intact. Conjunctiva/sclera: Conjunctivae normal. Pupils: Pupils are equal, round, and reactive to light. Cardiovascular: Rate and Rhythm: Normal rate and regular rhythm. Pulses: Normal pulses. Heart sounds: Normal heart sounds. No murmur heard. No friction rub. No gallop. Pulmonary: Effort: No respiratory distress. Breath sounds: Normal breath sounds. No stridor. No wheezing, rhonchi or rales. Chest: Chest wall: No tenderness. Abdominal: General: Abdomen is flat. Bowel sounds are normal. There is no distension. Palpations: Abdomen is soft. There is no mass. Tenderness: There is abdominal tenderness (Mild TTP LLQ). There is no right CVA tenderness, left CVA tenderness, guarding or rebound. Hernia: No hernia is present. Musculoskeletal: General: Normal range of motion. Cervical back: Normal range of motion and neck supple. Skin: General: Skin is warm and dry. Neurological: General: No focal deficit present. Mental Status: He is alert and oriented to person, place, and time. Psychiatric: Mood and Affect: Mood normal. Behavior: Behavior normal. Assessment/Plan (K52.831) Collagenous colitis (primary encounter diagnosis) (D64.9) Anemia, unspecified type (K52.9) Inflammation of small intestine (K52.9) Inflammatory bowel disease 1. Collagenous colitis - On Colazal daily with noticeable improvement in bowel habits. Could not take Entocort due to cost of medication. - Stop NSAIDs, informed that this is likely what has caused colitis as he has been on medication chronically - Will start on Bentyl PRN for abd pain 2. Anemia, unspecified type - Heme-Onc following - Consider capsule endoscopy pending CTE results 3. Inflammation of small intestine - CT ENTEROGRAPHY W IVCON; Future - iv contrast (will be provided with radiology test); CT Enterography W Inject, intravenously, once for 1 dose.No IV access, insert saline lock prior to the beginning of sedation, infusion, injection of imaging exam. Discontinue saline lock post exam. If Pt. has a central line or IVAD, may access for administration according to line specific nursing protocol. Once exam is complete flush line and de-access according to line specific nursing protocol in the CT contrast administration guidelines link. Dispense: 1 Each; Refill: 0 - enteric contrast (will be provided with radiology test); For CT ENTEROGRAPHY W IVCON order Administer, As Directed One Time Only, via Oral, Rectal, both Oral and Rectal, Enteric Tube, Stoma or Indwelling Catheter, Enteric Contrast as designated per enteric contrast guidelines. Dispense: 1 Each; Refill: 0 - CREATININE BLD; Future - Nonspecific small intestinal inflammation noted on colon, will plan to obtain CTE to r/o small bowel IBD I spent a total of 30 minutes on the date of the service which included preparing to see the patient, [id number] patient care, completing clinical documentation, obtaining and/or reviewing separately obtained history, performing a medically appropriate examination, counseling and educating the patient/family/caregiver, ordering medications, tests, or procedures, communicating with other HCPs (not separately reported), independently interpreting results (not separately reported), communicating results to the patient/family/caregiver, and care coordination (not separately reported). Tana Gongora PA-C January 21, 2022 2:21 PM documented in this encounter [facility] 12-09-2021 Miscellaneous Notes Gabe with [facility] called to state the medication ordered is not covered but did give two medications that should be covered by insurance: mesalamine 0.375 MG and balsalazide 750 MG. Please review and advise. Dolores Lowery LPN I sent in a prescription for as a call. I am not sure if this will be covered either. This medication does not work quite as well but hopefully he will see some improvement. Received call from Gonzalo at [facility]. He reports the prior auth for budesonide was approved but will still cost the patient $600. Gonzalo asking if Dr. Guidry will send in a different medication for him? documented in this encounter [facility] 12-04-2021 History of Present illness Narrative Subjective: Patient is status post an upper and lower endoscopy completed by [facility] biopsy results showed no signs of H. pylori random colon biopsies did show some signs of collagenous colitis. Patient is still experiencing diarrhea on a daily basis. Objective:Pulse 70, temperature 36.5 C (97.7 F), weight 78.5 kg (173 lb), SpO2 98 %. Abdomen soft Assessment: Collagenous colitis Plan: We will start him on some budesonide. If this is not working then he will have to seek out gastroenterology consultation for further evaluation of his diarrhea. I also emphasized that his anemia should probably be worked up further by seeking out hematology and/or if that is negative then possibly a video capsule endoscopy. documented in this encounter [facility] 11-27-2021 Miscellaneous Notes Returned call to Lucinda and spoke with his Larisa. Reviewed Neelima's message with Larisa. She expressed understanding. She advised that they will keep the appointment on 12/04/2021 with Neelima as they will be back in town by then. Advised that since Neelima reviewed the biopsies, we could cancel that visit, but Larisa advised that they would keep it. Lilian Oneil RN Biopsy results from the EGD were unremarkable. Biopsy results from his terminal ileum and colon taken during the colonoscopy showed some inflammation and collagenous colitis. Recommend low-fat diet and avoid caffeine and sugar, and would also recommend that he stop his PPI (pantoprazole) as this sometimes can cause collagenous colitis. Is patient having active diarrhea symptoms currently? If so, would recommend GI consult for further treatment recommendations. Also let him know no signs of bleeding were noted on the EGD or colonoscopy, so recommend that patient follow up with referring Dr for the anemia. If this persists and any concern remains for GI source of blood loss, would recommend he see GI for capsule endoscopy to visualize the small bowel. Patient called in asking for pathology results from recent EGD/Colonoscopy. They are currently traveling and ask that you call the wifes cell phone at [phone]. documented in this encounter [facility] 11-18-2021 History and physical note Images from the original note were not included. HISTORY AND PHYSICAL Lucinda Hernandez 1935 REFERRING PHYSICIAN: Liliana Patel APRN.MANAGER FARM CHIEF COMPLAINT: Consult (Positive cologard, anemia, diarrhea continues) HPI: TThe patient is a 85 year old male referred for endoscopy. Lucinda notes no history of colon complaints. The patient notes no history of upper GI complaints. Lucinda has undergone prior endoscopy. 2012 Dr. Funez performed a colonoscopy noted to have some internal hemorrhoids otherwise was negative Patient is scheduled to have a bronchoscopy tomorrow. Patient has been complaining of shortness of breath on exertion. He states that he can only mow his yard for 3-4 passes and then he gets extremely short of breath. He is not experiencing any chest pain. Originally saw this patient back in June and at that time he was having shortness of breath and was getting a bronchoscopy. He has had some minor adjustments in his medication is doing quite a bit better without swelling of his legs and shortness of breath and I feel that is appropriate for us not to do his endoscopy. Lucinda has undergone prior endoscopy. 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 Denise Gama. Synvisc injections. HYPERSOMNI W SLEEP APNEA 03/19/2003 HYPERTENSION NOS 06/15/2005 Rheumatoid arthritis involving multiple sites with positive rheumatoid factor (HCC) 01/29/2015 CCP +, RF +, erosive. Early Rx in 2002: SSZ and plaquenil. Progression of dz 06/2010- tried Enbrel x ~ 1 months (rash - stopped). RTX 01/2011, 08/2011, 03/2012, 11/2012, 06/2013, 01/2014, 07/2014, 01/2015, 08/2015, 03/2016 PAST SURGICAL HISTORY PAST SURGICAL HISTORY Procedure Laterality Date ARTHRP KNE CONDYLE&PLATU MEDIAL&LAT COMPARTMENTS 2011 Bilateral COLONOSCOPY 08/09/2012 COLONOSCOPY FLX DX W/COLLJ SPEC WHEN PFRMD 05/18/2005 PAST SURGICAL HISTORY OF Left 01/06/2001 Inguinal hernia x 2 PAST SURGICAL HISTORY OF 04/04/2003 Right foot surgery PAST SURGICAL HISTORY OF 06/23/2017 Right cataract surgery PAST SURGICAL HISTORY OF 07/04/2017 Left cataract surgery UVULECTOMY EXCISION UVULA [address] [facility], Dr. [place] CURRENT MEDICATIONS Current Outpatient Medications Medication Sig hydroCHLOROthiazide (HYDRODIURIL, ESIDRIX) 12.5 mg capsule Take 1 capsule by mouth once daily. amLODIPine (NORVASC) 5 mg tablet Take 1 tablet by mouth once daily. diphenoxylate-atropine (LOMOTIL) 2.5-0.025 mg per tablet Take 1 tablet by mouth three times daily as needed for diarrhea for up to [address] (PROTONIX) 40 mg tablet Take 1 tablet by mouth once daily. hydrOXYchloroQUINE (PLAQUENIL) 200 mg tablet Take 1 tablet by mouth twice daily. naproxen (NAPROSYN) 250 mg tablet Take 500 mg by mouth twice daily with meals. lisinopril (ZESTRIL, PRINIVIL) 40 mg tablet Take 1 tablet by mouth once daily. mometasone (ELOCON) 0.1 % cream Apply 1 application to affected area once daily as needed. peg 3350-Electrolytes (GOLYTELY) 236-22.74-6.74 -5.86 gram suspension Take 4,000 mL by mouth one time only for 1 dose. Refer to printed prep instructions from your provider. No current facility-administered medications for this visit. ALLERGIES: Enbrel [Etanercept] PERSONAL HISTORY: SOCIAL HISTORY Social History Tobacco Use Smoking status: Former Types: Cigarettes Quit date: 03/19/1963 Years since quittin.6 Smokeless tobacco: Never Tobacco comments: 1 ppd Vaping Use Vaping Use: Never used Substance Use Topics Alcohol use: Yes Alcohol/week: 35.0 standard drinks Types: 14 Glasses of Wine (5oz) per week Drug use: No FAMILY HISTORY: FAMILY HISTORY FAMILY HISTORY Problem Relation Age of Onset Diabetes Mother Coronary Artery Disease Mother [place] at age 82 Ischemic Heart Disease Father at age 66 other (pituitary tumor) Brother other (Other) Brother aspiration pneumonia Coronary Artery Disease Brother Hypertension Brother REVIEW OF SYSTEMS: General: The patient NOTES fatigue, denies weight loss, denies weight gain, denies feeling hot, and denies feelings of cold. Eyes: The patient denies glaucoma, denies eye injury/surgery, does not wear glasses or contacts. Ear/Nose/Throat: The patient denies allergies, denies hayfever, denies ear infections, and denies bloody noses. Cardiovascular: The patient denies chest pain, denies heart disease, denies high blood pressure,denies cardiac stent, denies prior heart attack, denies irregular heart beat, denies high cholesterol, denies poor circulation, denies heart failure, other cardiac issues, denies claudication, denies cold feet, denies peripheral arterial stent. Respiratory: The patient denies tuberculosis, NOTES pneumonia, denies frequent cough, denies pulmonary embolism, NOTES shortness of breath, and denies coughing up blood. Gastrointestinal: The patient denies difficulty swallowing, NOTES acid reflux, denies ulcers, denies vomiting, denies jaundice/hepatitis, denies gallbladder problems, denies black or tarry stools, denies hemorrhoids, denies bleeding from rectum, denies diverticulitis, denies constipation, denies diarrhea, denies loss of stool control, and denies hernias. Kidney/Bladder: The patient denies kidney stones, denies urine infections, and denies bloody urine. Skin: The patient denies a history of skin cancer, denies bleeding/changing moles, and denies a history of skin rash. Neurologic: The patient denies a history of epilepsy/convulsions, denies headaches, denies head/spinal injuries, and denies stroke/TIA. Psychiatric: The patient denies psychiatric medications, denies depression, and denies voices, denies substance abuse. Endocrine: The patient denies thyroid disorders, denies diabetes, and denies hormonal problems. Hematologic: The patient NOTES a history of bruising, denies bleeding, and NOTES anemia, denies blood clots. Infections: The patient NOTES a history of measles and mumps, denies rheumatic fever, and denies sexually transmitted diseases. Musculoskeletal: The patient denies back pain/injury, denies back problems, denies sciatica, NOTES knee/foot trouble, NOTES arthritis, or denies gout. When was patient's last Mammogram screening? N/A Last Colonoscopy: 07/30/2012 PHYSICAL EXAMINATION: General: The patient is 85 year old male, well nourished, well hydrated in no acute distress. The patient is oriented to time, place, and person. VITALS: Blood pressure 108/58, pulse 66, temperature 36.7 C (98 F), height 188 cm (6' 2 ), weight 78 kg (172 lb), SpO2 97 %. Body mass index is 22.08 kg/m . HEENT: Normal cephalic, ataumatic, pupils are equally round, sclera are anicteric, mucous membranes are moist, oropharynx is clear. Neck has no masses, asymmetry or lymphadenopathy. Thyroid is unremarkable. Respiratory: Clear to auscultation and percussion. Normal respiratory excursion and pattern. Cardiac: Examination is regular rate and rhythm. Abdominal exam: Soft, nontender, with no palpable masses. No hepatosplenomegaly. No palpable hernias. Rectal exam: exam deferred Extremities: no clubbing, cyanosis or edema. No adenopathy. Other: LABORATORY VALUES: As Noted RADIOLOGIC STUDIES: As Noted Assessment IMPRESSION: Positive fecal occult blood test (primary encounter diagnosis) Anemia, unspecified type PLAN: I plan to perform upper and lower endoscopy. We discussed the risks and benefits of the planned endoscopy. I have informed the patient that complications can occur including failure to complete the endoscopy and perforation. The patient had the opportunity to ask questions concerning the planned endoscopy. My staff has also explained the procedure to the patient in understandable terms and has given the patient printed material concerning the procedure. The patient freely consents to surgery. I plan to use [employer]ler[employer] bowel preparation for endoscopy My plan is to perform biopsies of stomach and duodenum. I will cannulate the TI did biopsies there as well and do random colon biopsies. The patient has medical comorbidities for which I plan to perform the procedure under monitored anesthetic care. Diagnoses: (R19.5) Positive fecal occult blood test (primary encounter diagnosis) (D64.9) Anemia, unspecified type My findings have been communicated to Dr. Santino Long MD via shared medical record. This note will be forwarded to Dr. Santino Long MD. Return to Clinic: The patient is instructed to follow-up with me 1 week post operatively. COVID (Procedure Consent) Procedure Criteria Procedure Criteria: Yes Elective The surgeon/proceduralist and patient have discussed in detail the risk of exposure to and/or potential harm posed by the COVID-19 virus with having a surgery/procedure at this time versus the risk of delaying the surgery/procedure. It is not possible to know either the risk of delaying the surgery or procedure or chance of getting an infection with perfect accuracy, but a joint decision was made between the patient and the surgeon/proceduralist to proceed at this time with the scheduled surgery/procedure as indicated on the consent form. Umang Guidry III, MD UPDATED HISTORY AND PHYSICAL EXAMINATION SERVICE DATE: 11/18/2021 SERVICE TIME: 11:19 AM PHYSICAL EXAM MUST BE COMPLETED ON ADMISSION The History and Physical (completed in the past 30 days) has been reviewed and the patient has been examined. The contents accurately reflect the patient's condition with the following additions or revisions since the H&P was completed. Examination indicates no changes. This H&P can be found in the attached. SIGNATURE: Umang Guidry III, MD PATIENT NAME: Lucinda Hernandez DATE: November 18, 2021 TIME: 11:19 AM documented in this encounter [facility] 10-28-2021 History of Present illness Narrative Radiology Service Progress Note PATIENT NAME: Lucinda Hernandez DATE OF SERVICE: October 28, 2021 TIME: 11:10 AM PATIENT IDENTITY VERIFICATION COMPLETED USING TWO (2) IDENTIFIERS: Name and Date of confirmed by patient verbally. FALL SCREENING: Has the patient had 2 falls in the last year or 1 fall with injury or currently using an Ambulatory Assistive Device (Walker, Cane, Wheelchair, Crutches, etc.)? No PATIENT GENDER DATA: Male PATIENT RELEVANT IMPLANT DATA REVIEWED: Not Applicable RADIOLOGY DEPARTMENT: Bone Density PERIPHERAL IV DATA: Not applicable SIGNED BY: RT Will(R) October 28, 2021 11:10 AM documented in this encounter [facility] 10-21-2021 Miscellaneous Notes 11/18/2021 EGD & Colonoscopy Dr. Guidry documented in this encounter [facility] 10-20-2021 History of Present illness Narrative HISTORY AND PHYSICAL Lucinda Hernandez 1935 REFERRING PHYSICIAN: Liliana Patel APRN.MA[employer]GER [employer] COMPLAINT: Consult (Positive cologard, anemia, diarrhea continues) HPI: TThe patient is a 85 year old male referred for endoscopy. Lucinda notes no history of colon complaints. The patient notes no history of upper GI complaints. Lucinda has undergone prior endoscopy. 2012 Dr. Funez performed a colonoscopy noted to have some internal hemorrhoids otherwise was negative Patient is scheduled to have a bronchoscopy tomorrow. Patient has been complaining of shortness of breath on exertion. He states that he can only mow his yard for 3-4 passes and then he gets extremely short of breath. He is not experiencing any chest pain. Originally saw this patient back in June and at that time he was having shortness of breath and was getting a bronchoscopy. He has had some minor adjustments in his medication is doing quite a bit better without swelling of his legs and shortness of breath and I feel that is appropriate for us not to do his endoscopy. Lucinda has undergone prior endoscopy. 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 Denise Gama. Synvisc injections. HYPERSOMNI W SLEEP APNEA 03/19/2003 HYPERTENSION NOS 06/15/2005 Rheumatoid arthritis involving multiple sites with positive rheumatoid factor (HCC) 01/29/2015 CCP +, RF +, erosive. Early Rx in 2002: SSZ and plaquenil. Progression of dz 06/2010- tried Enbrel x ~ 1 months (rash - stopped). RTX 01/2011, 08/2011, 03/2012, 11/2012, 06/2013, 01/2014, 07/2014, 01/2015, 08/2015, 03/2016 PAST SURGICAL HISTORY Procedure Laterality Date ARTHRP KNE CONDYLE&PLATU MEDIAL&LAT COMPARTMENTS 2011 Bilateral COLONOSCOPY 08/09/2012 COLONOSCOPY FLX DX W/COLLJ SPEC WHEN PFRMD 05/18/2005 PAST SURGICAL HISTORY OF Left 01/06/2001 Inguinal hernia x 2 PAST SURGICAL HISTORY OF 04/04/2003 Right foot surgery PAST SURGICAL HISTORY OF 06/23/2017 Right cataract surgery PAST SURGICAL HISTORY OF 07/04/2017 Left cataract surgery UVULECTOMY EXCISION UVULA 1987 [facility], Dr. Temple Current Outpatient Medications Medication Sig hydroCHLOROthiazide (HYDRODIURIL, ESIDRIX) 12.5 mg capsule Take 1 capsule by mouth once daily. amLODIPine (NORVASC) 5 mg tablet Take 1 tablet by mouth once daily. diphenoxylate-atropine (LOMOTIL) 2.5-0.025 mg per tablet Take 1 tablet by mouth three times daily as needed for diarrhea for up to [address] (PROTONIX) 40 mg tablet Take 1 tablet by mouth once daily. hydrOXYchloroQUINE (PLAQUENIL) 200 mg tablet Take 1 tablet by mouth twice daily. naproxen (NAPROSYN) 250 mg tablet Take 500 mg by mouth twice daily with meals. lisinopril (ZESTRIL, PRINIVIL) 40 mg tablet Take 1 tablet by mouth once daily. mometasone (ELOCON) 0.1 % cream Apply 1 application to affected area once daily as needed. peg 3350-Electrolytes (GOLYTELY) 236-22.74-6.74 -5.86 gram suspension Take 4,000 mL by mouth one time only for 1 dose. Refer to printed prep instructions from your provider. No current facility-administered medications for this visit. ALLERGIES: Enbrel [Etanercept] PERSONAL HISTORY: Social History Tobacco Use Smoking status: Former Types: Cigarettes Quit date: 03/19/1963 Years since quittin.6 Smokeless tobacco: Never Tobacco comments: 1 ppd Vaping Use Vaping Use: Never used Substance Use Topics Alcohol use: Yes Alcohol/week: 35.0 standard drinks Types: 14 Glasses of Wine (5oz) per week Drug use: No FAMILY HISTORY: FAMILY HISTORY Problem Relation Age of Onset Diabetes Mother Coronary Artery Disease Mother [place] at age 82 Ischemic Heart Disease Father at age 66 other (pituitary tumor) Brother other (Other) Brother aspiration pneumonia Coronary Artery Disease Brother Hypertension Brother REVIEW OF SYSTEMS: General: The patient NOTES fatigue, denies weight loss, denies weight gain, denies feeling hot, and denies feelings of cold. Eyes: The patient denies glaucoma, denies eye injury/surgery, does not wear glasses or contacts. Ear/Nose/Throat: The patient denies allergies, denies hayfever, denies ear infections, and denies bloody noses. Cardiovascular: The patient denies chest pain, denies heart disease, denies high blood pressure,denies cardiac stent, denies prior heart attack, denies irregular heart beat, denies high cholesterol, denies poor circulation, denies heart failure, other cardiac issues, denies claudication, denies cold feet, denies peripheral arterial stent. Respiratory: The patient denies tuberculosis, NOTES pneumonia, denies frequent cough, denies pulmonary embolism, NOTES shortness of breath, and denies coughing up blood. Gastrointestinal: The patient denies difficulty swallowing, NOTES acid reflux, denies ulcers, denies vomiting, denies jaundice/hepatitis, denies gallbladder problems, denies black or tarry stools, denies hemorrhoids, denies bleeding from rectum, denies diverticulitis, denies constipation, denies diarrhea, denies loss of stool control, and denies hernias. Kidney/Bladder: The patient denies kidney stones, denies urine infections, and denies bloody urine. Skin: The patient denies a history of skin cancer, denies bleeding/changing moles, and denies a history of skin rash. Neurologic: The patient denies a history of epilepsy/convulsions, denies headaches, denies head/spinal injuries, and denies stroke/TIA. Psychiatric: The patient denies psychiatric medications, denies depression, and denies voices, denies substance abuse. Endocrine: The patient denies thyroid disorders, denies diabetes, and denies hormonal problems. Hematologic: The patient NOTES a history of bruising, denies bleeding, and NOTES anemia, denies blood clots. Infections: The patient NOTES a history of measles and mumps, denies rheumatic fever, and denies sexually transmitted diseases. Musculoskeletal: The patient denies back pain/injury, denies back problems, denies sciatica, NOTES knee/foot trouble, NOTES arthritis, or denies gout. When was patient's last Mammogram screening? N/A Last Colonoscopy: 07/30/2012 PHYSICAL EXAMINATION: General: The patient is 85 year old male, well nourished, well hydrated in no acute distress. The patient is oriented to time, place, and person. VITALS: Blood pressure 108/58, pulse 66, temperature 36.7 C (98 F), height 188 cm (6' 2 ), weight 78 kg (172 lb), SpO2 97 %. Body mass index is 22.08 kg/m . HEENT: Normal cephalic, ataumatic, pupils are equally round, sclera are anicteric, mucous membranes are moist, oropharynx is clear. Neck has no masses, asymmetry or lymphadenopathy. Thyroid is unremarkable. Respiratory: Clear to auscultation and percussion. Normal respiratory excursion and pattern. Cardiac: Examination is regular rate and rhythm. Abdominal exam: Soft, nontender, with no palpable masses. No hepatosplenomegaly. No palpable hernias. Rectal exam: exam deferred Extremities: no clubbing, cyanosis or edema. No adenopathy. Other: LABORATORY VALUES: As Noted RADIOLOGIC STUDIES: As Noted Assessment IMPRESSION: Positive fecal occult blood test (primary encounter diagnosis) Anemia, unspecified type PLAN: I plan to perform upper and lower endoscopy. We discussed the risks and benefits of the planned endoscopy. I have informed the patient that complications can occur including failure to complete the endoscopy and perforation. The patient had the opportunity to ask questions concerning the planned endoscopy. My staff has also explained the procedure to the patient in understandable terms and has given the patient printed material concerning the procedure. The patient freely consents to surgery. I plan to use golytely bowel preparation for endoscopy My plan is to perform biopsies of stomach and duodenum. I will cannulate the TI did biopsies there as well and do random colon biopsies. The patient has medical comorbidities for which I plan to perform the procedure under monitored anesthetic care. Diagnoses: (R19.5) Positive fecal occult blood test (primary encounter diagnosis) (D64.9) Anemia, unspecified type My findings have been communicated to Dr. Santino Long MD via shared medical record. This note will be forwarded to Dr. Santino Long MD. Return to Clinic: The patient is instructed to follow-up with me 1 week post operatively. COVID (Procedure Consent) Procedure Criteria Procedure Criteria: Yes Elective The surgeon/proceduralist and patient have discussed in detail the risk of exposure to and/or potential harm posed by the COVID-19 virus with having a surgery/procedure at this time versus the risk of delaying the surgery/procedure. It is not possible to know either the risk of delaying the surgery or procedure or chance of getting an infection with perfect accuracy, but a joint decision was made between the patient and the surgeon/proceduralist to proceed at this time with the scheduled surgery/procedure as indicated on the consent form. Umang Guidry III, MD documented in this encounter [facility] 10-20-2021 Instructions Umang Guidry MD - 10/20/2021 9:35 AM EDT Images from the original note were not included. Bowel Preparation Instructions for: Golytely, Nulytely, Trilyte or Colyte (polyethylene glycol 3350 and electrolytes) IF YOU DO NOT FOLLOW THESE DIRECTIONS, YOUR COLONOSCOPY WILL BE CANCELLED. [place] Instructions: Your bowel must be empty so that your doctor can clearly view your colon. Follow all of the instructions in this handout EXACTLY as they are written. Do NOT eat any solid food the ENTIRE day before your colonoscopy. Drink only clear liquids. Buy your bowel preparation at least 5 days before your colonoscopy. TRANSPORTATION on the Day of Your Exam A responsible person MUST be present with you at Check In prior to your colonoscopy and REMAIN in the endoscopy area until you are discharged. You are NOT ALLOWED to drive, take a taxi or bus, or leave the Endoscopy Center ALONE. If you do not have a responsible emt driver (family member or friend) with you to take you home, your exam cannot be done with sedation and will be cancelled. Please bring a list of all of your current medications, including any Over-the Counter medications with you. Medications If you take insulin, diabetic medications or blood thinners such as Coumadin (warfarin), Plavix (clopidogrel), Ticlid (ticlopidine hydrochloride), Agrylin (anagrelide), Xarelto (Rivaroxaban), Pradaxa (Dabigatran), Eliquis (Apixaban), and Effient (Prasugrel). You MUST call the doctors who orders those medicines for instructions on altering the dosage before your colonoscopy. All other medications should be taken the day of the exam with a sip of water including ASPIRIN. Five (5) Days Before Your Colonoscopy Do NOT take medicines that stop diarrhea - such as Imodium, Kaopectate, or Pepto Bismol. Do NOT take fiber supplements - such as Metamucil, Citrucel, or Perdiem. Do NOT take products that contain iron - such as multi-vitamins (the label lists what is in the products). Do NOT take Vitamin E. Buy the prescription bowel preparation solution at your local pharmacy or drugstore pharmacy. 01/2019 Bowel Preparation Instructions for: Golytely, Nulytely, Trilyte or Colyte (polyethylene glycol 3350 and electrolytes) Three (3) Days Before Your Colonoscopy Do NOT eat high-fiber foods - such as popcorn, beans, seeds (flax, sunflower, quinoa), multigrain bread, nuts, salad/vegetables, or fresh and dried fruit. One (1) Day Before Your Colonoscopy Only drink clear liquids the ENTIRE DAY before your colonoscopy. Do NOT eat any solid foods. Drink at least 8 ounces of clear liquids every hour after waking up. The clear liquids you can drink include: Clear Liquid (NO RED LIQUIDS) DO NOT DRINK Gatorade, Pedialyte or Powerade Clear broth or bouillon Coffee or tea (no milk or non-dairy creamer) Carbonated and non-carbonated soft drinks Julio-Aid or other fruit flavored drinks Strained fruit juices (no pulp) Jell-O, popsicles, hard candy Water Alcohol Milk or non-dairy creamers Noodles or vegetables in soup Juice with pulp Liquid you cannot see through Do not use tobacco/vaping products The bowel preparation solution will be consumed in two parts. Mix the solution the evening before your colonoscopy and refrigerate before drinking. You may add the flavor pack that came with the bowel preparation. Do NOT add ice, sugar or any other flavorings to the solution. Part 1 At 6:00 PM - Evening before your colonoscopy Drink an 8-oz glass of bowel preparation every 10 minutes for a total of 8 glasses. You may continue to drink clear liquids until midnight. Part 2 On the day of your colonoscopy you may drink clear liquids up to (three) 3 hours before your procedure. 4 1/2 hours before your colonoscopy Drink an 8-oz glass of bowel preparation every 10 minutes for a total of 8 glasses. Fifteen (15) minutes later, drink an 8-oz glass of clear liquids every 15 minutes for a total of 2 glasses. You may continue to drink clear liquids up to (three) 3 hours before your exam. 2 01/2019 documented in this encounter [facility] 10-13-2021 Miscellaneous Notes Pts called and is notified of providers results and instructions. She voices understanding. Put Pts through to scheduling to set up appointment. Neelima Moss RN Please let the patient know Dr. Guidry said he will not need stress test however he does want to see him in the office first before scheduling procedure. Please assist patient in scheduling, he already had appointment and does not need another referral Liliana Patel APRN.DANIEL documented in this encounter [facility] 10-12-2021 History of Present illness Narrative CC: Patient presents with: 6 week follow up HPI Lucinda Hernandez is a 85 year old male who presents today for above. He was seen on 08/20 for edema BLE and watery diarrhea. C-diff negative. D-dimer positive however venous ultrasound negative. Edema attributed to the discontinuation of HCTZ a few months prior due to SHIMA. This was resumed on 08/28. Diarrhea treated with Lomotil. Today patient reports diarrhea has improved slightly however still experiencing 2-3 loose stools a day. Stools are watery, no black or bloody stools. Has not had a normal BM since onset of diarrhea. Has to take Imodium 1-2 times a day or diarrhea worsens. He had a positive occult blood stool test in July that was ordered for anemia evaluation. He was seen by general surgery for this however due to significant SOB surgeon felt patient should have stress test first. Patient states SOB resolved once pneumonia cleared. Denies SOB including with exertion, chest pain, palpitations, feeling faint, syncope. BLE edema has also resolved since resuming HCTZ. Kidney function continues to improve. REVIEW OF SYSTEMS General: continues to lose weight. Energy level increasing. 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 Denise Gama. Synvisc injections. HYPERSOMNI W SLEEP APNEA 03/19/2003 HYPERTENSION NOS 06/15/2005 Rheumatoid arthritis involving multiple sites with positive rheumatoid factor (HCC) 01/29/2015 CCP +, RF +, erosive. Early Rx in 2002: SSZ and plaquenil. Progression of dz 06/2010- tried Enbrel x ~ 1 months (rash - stopped). RTX 01/2011, 08/2011, 03/2012, 11/2012, 06/2013, 01/2014, 07/2014, 01/2015, 08/2015, 03/2016 PAST SURGICAL HISTORY Procedure Laterality Date ARTHRP KNE CONDYLE&PLATU MEDIAL&LAT COMPARTMENTS 2011 Bilateral COLONOSCOPY 08/09/2012 COLONOSCOPY FLX DX W/COLLJ SPEC WHEN PFRMD 05/18/2005 PAST SURGICAL HISTORY OF Left 01/06/2001 Inguinal hernia x 2 PAST SURGICAL HISTORY OF 04/04/2003 Right foot surgery PAST SURGICAL HISTORY OF 06/23/2017 Right cataract surgery PAST SURGICAL HISTORY OF 07/04/2017 Left cataract surgery UVULECTOMY EXCISION UVULA [address] [facility], Dr. Temple ALLERGIES Enbrel [Etanercept] MEDICATIONS hydroCHLOROthiazide (HYDRODIURIL, ESIDRIX) 12.5 mg capsule Take 1 capsule by mouth once daily. amLODIPine (NORVASC) 5 mg tablet Take 1 tablet by mouth once daily. diphenoxylate-atropine (LOMOTIL) 2.5-0.025 mg per tablet Take 1 tablet by mouth three times daily as needed for diarrhea for up to 7 days. (Patient not taking: Reported on 09/18/2021) pantoprazole DR (PROTONIX) 40 mg tablet Take 1 tablet by mouth once daily. hydrOXYchloroQUINE (PLAQUENIL) 200 mg tablet Take 1 tablet by mouth twice daily. naproxen (NAPROSYN) 250 mg tablet Take 500 mg by mouth twice daily with meals. lisinopril (ZESTRIL, PRINIVIL) 40 mg tablet Take 1 tablet by mouth once daily. mometasone (ELOCON) 0.1 % cream Apply 1 application to affected area once daily as needed. FAMILY HISTORY Problem Relation Age of Onset Diabetes Mother Coronary Artery Disease Mother [place] at age 82 Ischemic Heart Disease Father at age 66 other (pituitary tumor) Brother other (Other) Brother aspiration pneumonia Coronary Artery Disease Brother Hypertension Brother Social History Tobacco Use Smoking status: Former Types: Cigarettes Quit date: 03/19/1963 Years since quittin.6 Smokeless tobacco: Never Tobacco comments: 1 ppd Vaping Use Vaping Use: Never used Substance Use Topics Alcohol use: Yes Alcohol/week: 35.0 standard drinks Types: 14 Glasses of Wine (5oz) per week Drug use: No PHYSICAL EXAM BP 121/62 Pulse (!) 53 Resp 12 Wt 78 kg (172 lb) BMI 22.08 kg/m General Appearance: well appearing, in no acute distress, alert Lungs: Lungs clear to auscultation. No wheezing, rhonchi, rales. Heart: RRR without murmur, gallop, or rubs. No ectopy Abdomen: Abdomen soft, non-tender. Bowel sounds normal. No masses, organomegaly Ext: no edema in LE bilaterally, good distal pulses DATA REVIEWED: Most recent labs ASSESSMENT/PLAN: 1. Edema of both legs - ICD9: 782.3, ICD10: R60.0 (primary diagnosis) Resolved after resuming HCTZ 2. Diarrhea, unspecified type - ICD9: 787.91, ICD10: R19.7 Continues to have diarrhea every day, worse when he does not take Imodium. Needs colonoscopy, however general surgeon's note states he will need stress test first due to SOB. Since SOB has resolved will forward chart to Dr. Guidry to see if he still wants patient to have stress test prior to colonoscopy. Prescription instructions reviewed with patient as applicable. Potential red flag symptoms discussed with the patient. Reviewed appropriate action plan to take if red flag symptoms occur. Patient agreeable to treatment plan. Liliana Patel APRN.CNP documented in this encounter [facility] 09-18-2021 History of Present illness Narrative [facility] [place] Department of Rheumatic and Immunologic Diseases Established patient: RA CC: Pain in B/l Wrists Background history: Lucinda Hernandez is a 85 year old year-old male with PMH notable for seropositive erosive (CCP, RF) RA, OA, and BPH who presents to Rheumatology Clinic for evaluation of pain in B/l wrists. He states that he has had RA for about 15 years and was first started on oral medications. 12 years ago he was started on Rituximab. He has not had any reactions to the infusion and says he gets about 4 months of relief after the infusion. He was recently diagnosed with Pneumonia and was put on antibiotics. He says he is improving. He has stopped taking his Sulfasalazine because the pharmacy has been out of stock and was told to increase his Plaquenil dose by 1/2 a tablet. He says this has been going well so far. Treatment history of RA Early Rx in 2002: SSZ and plaquenil. Progression of dz 06/2010- tried Enbrel x ~ 1 months (rash -stopped). RTX 1g x2: 01/2011, 08/2011, 03/2012, 11/2012, 06/2013, 01/2014, 07/2014, 01/2015, 08/2015, 03/2016, 08/2016, 08/2017 RTX 1g x1: 02/2017 Last infusions on 06/11, 06/2020 1 g each On HCQ 300 mg - last OCT exam was done locally and was normal - last one was scanned in our documment was in 04/2019 Off of SSZ Takes naproxen every day Interval history September 18, 2021 So far had two infusions of Orencia - not too much difference of his symptoms No divericultitis in the past Last RTX 1000 mg in 01/27/2021 Right wrist pain. closer to evening. - US in 04/2021 showed minimal active synovitis No prolonged stiffness back on naproxen twice a day Uses voltaren gel Received COVID booster and 2 evusheld shots No recent infection or illness Review of Systems: Answers for HPI/ROS submitted by the patient on 09/11/2021 Recent Unintentional Weight Change: Yes Eye Pain: No Eye Redness: No Vision Disturbance: No Eye Dryness: No Nose Bleeds: No Sores in your Mouth: No Trouble Swallowing: No Dry Mouth: No Chest Pain: No Leg Swelling: Yes A Cough: No Shortness of Breath: No Pain with Breathing: No Heartburn: No Abdominal Pain: Yes Diarrhea: Yes Black Tarry Stools: No Blood in Urine: No Pain or Burning with Urination: No Joint Pain or Stiffness: Yes Muscle Weakness: No Muscle Aches: No Joint Swelling: Yes Morning Stiffness in Joints: No A Rash: No Skin Color Changes: No Hair Loss: Yes Nail Changes: No Headaches: No Numbness: No Memory Loss: Yes Swollen Glands: No Otherwise, a 12 point ROS was obtained and was negative. 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 Denise Gama. Synvisc injections. HYPERSOMNI W SLEEP APNEA 03/19/2003 HYPERTENSION NOS 06/15/2005 Rheumatoid arthritis involving multiple sites with positive rheumatoid factor (HCC) 01/29/2015 CCP +, RF +, erosive. Early Rx in 2002: SSZ and plaquenil. Progression of dz 06/2010- tried Enbrel x ~ 1 months (rash - stopped). RTX 01/2011, 08/2011, 03/2012, 11/2012, 06/2013, 01/2014, 07/2014, 01/2015, 08/2015, 03/2016 PAST SURGICAL HISTORY Procedure Laterality Date ARTHRP KNE CONDYLE&PLATU MEDIAL&LAT COMPARTMENTS 2011 Bilateral COLONOSCOPY 08/09/2012 COLONOSCOPY FLX DX W/COLLJ SPEC WHEN PFRMD 05/18/2005 PAST SURGICAL HISTORY OF Left 01/06/2001 Inguinal hernia x 2 PAST SURGICAL HISTORY OF 04/04/2003 Right foot surgery PAST SURGICAL HISTORY OF 06/23/2017 Right cataract surgery PAST SURGICAL HISTORY OF 07/04/2017 Left cataract surgery UVULECTOMY EXCISION UVULA 1987 [facility], Dr. Temple FAMILY HISTORY Problem Relation Age of Onset Diabetes Mother Coronary Artery Disease Mother [place] at age 82 Ischemic Heart Disease Father at age 66 other (pituitary tumor) Brother other (Other) Brother aspiration pneumonia Coronary Artery Disease Brother Hypertension Brother Social History Tobacco Use Smoking status: Former Smoker Types: Cigarettes Quit date: 03/19/1963 Years since quittin.5 Smokeless tobacco: Never Used Tobacco comment: 1 ppd Vaping Use Vaping Use: Never used Substance Use Topics Alcohol use: Yes Alcohol/week: 35.0 standard drinks Types: 14 Glasses of Wine (5oz) per week Drug use: No MEDICATIONS: hydroCHLOROthiazide (HYDRODIURIL, ESIDRIX) 12.5 mg capsule Take 1 capsule by mouth once daily. amLODIPine (NORVASC) 5 mg tablet Take 1 tablet by mouth once daily. pantoprazole DR (PROTONIX) 40 mg tablet Take 1 tablet by mouth once daily. hydrOXYchloroQUINE (PLAQUENIL) 200 mg tablet Take 1 tablet by mouth twice daily. naproxen (NAPROSYN) 250 mg tablet Take 500 mg by mouth twice daily with meals. lisinopril (ZESTRIL, PRINIVIL) 40 mg tablet Take 1 tablet by mouth once daily. mometasone (ELOCON) 0.1 % cream Apply 1 application to affected area once daily as needed. diphenoxylate-atropine (LOMOTIL) 2.5-0.025 mg per tablet Take 1 tablet by mouth three times daily as needed for diarrhea for up to 7 days. ALLERGIES Allergen Reactions Enbrel [Etanercept] Rash Physical Examination: Vitals: BP 121/59 Pulse (!) 52 Temp 36.2 C (97.1 F) (Temporal) Ht 188 cm (6' 2 ) Wt 80.2 kg (176 lb 12.8 oz) BMI 22.70 kg/m GEN: awake, alert, well-appearing PULM: on RA. No acute distress. No cough NEURO: no facial asymmetry SKIN: no facial asymmetry MSK: limited ROM of right wrist without any swelling or focal tenderness. No focal tenderness or swelling or left wrist or knees ASSESSMENT: Lucinda Hernandez is a 85 year old year-old male with PMH notable for seropositive erosive (CCP, RF) RA, OA, and BPH who presents to Rheumatology Clinic for evaluation of pain in B/l wrists. He states that he has had RA for about 15 years and was first started on oral medications. 12 years ago he was started on Rituximab. He has not had any reactions to the infusion and says he gets about 4 months of relief after the infusion. Main complaint is right wrist pain which could be multifactorial ( chronic damage, OA changes in addition to possible low to mild active RA based on exam given new data from different study about increase risk for serious COVID infection in pts on RTX -US done in 04/2021 that showed minimal active synovitis in wrists and PIPs level We discussed about changing therapy to orencia (he had a high copay) he had allergic reaction to enbrel So far he had 2 infusions of orencia Might consider IA steroid injection No recent infection Recommend to decrease naproxen to once a day Continue Plaquenil 2 tablets a day - his OCT exam was normal He is vaccinated for COVID with booster - DXA Axial Skeleton today - will check labs today as well I spent a total of 25 minutes on the date of the service which included preparing to see the patient, [id number] patient care, completing clinical documentation, obtaining and/or reviewing separately obtained history, performing a medically appropriate examination, counseling and educating the patient/family/caregiver and ordering medications, tests, or procedures. Maritza Bal MD Rheumatology staff September 18, 2021 documented in this encounter [facility] 09-01-2021 History of Present illness Narrative Radiology Service Progress Note PATIENT NAME: Lucinda Hernandez DATE OF SERVICE: September 01, 2021 TIME: 3:26 PM PATIENT IDENTITY VERIFICATION COMPLETED USING TWO (2) IDENTIFIERS: Name and Date of confirmed by patient verbally. FALL SCREENING: Has the patient had 2 falls in the last year or 1 fall with injury or currently using an Ambulatory Assistive Device (Walker, Cane, Wheelchair, Crutches, etc.)? No PATIENT GENDER DATA: Male PATIENT RELEVANT IMPLANT DATA REVIEWED: Not Applicable RADIOLOGY DEPARTMENT: Ultrasound PERIPHERAL IV DATA: Not applicable SIGNED BY: Antonieta Amezcua RDMS RVT September 01, 2021 3:26 PM documented in this encounter [facility] 08-28-2021 History of Present illness Narrative This note was created using [employer]. Subjective Lucinda Hernandez is a 85 year old male here with spouse. He had edema that was stable. His diarrhea was improving and less explosive. He requested refill of Lomotil. C. Difficile was negative. His kidney function was back to normal. His newspaper subscription solicitor recommended Covid booster this month. He was also scheduled for Orencia infusion next week. Review of Systems Constitutional: Negative for fever. Respiratory: Negative. Cardiovascular: Positive for leg swelling. Gastrointestinal: Positive for diarrhea. Negative for abdominal pain and vomiting. Genitourinary: Negative. 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 (PROTONIX) 40 mg tablet Take 1 tablet by mouth once daily. hydrOXYchloroQUINE (PLAQUENIL) 200 mg tablet Take 1 tablet by mouth twice daily. naproxen (NAPROSYN) 250 mg tablet Take 500 mg by mouth twice daily with meals. lisinopril (ZESTRIL, PRINIVIL) 40 mg tablet Take 1 tablet by mouth once daily. mometasone (ELOCON) 0.1 % cream Apply 1 application to affected area once daily as needed. hydroCHLOROthiazide (HYDRODIURIL, ESIDRIX) 12.5 mg capsule Take 1 capsule by mouth once daily. amLODIPine (NORVASC) 5 mg tablet Take 1 tablet by mouth once daily. No current facility-administered medications for this visit. Objective BP 120/60 Pulse (!) 54 Resp 14 Wt 79.8 kg (176 lb) BMI 22.60 kg/m Physical Exam Constitutional: General: He is not in acute distress. Appearance: He is not ill-appearing. Cardiovascular: Rate and Rhythm: Regular rhythm. Bradycardia present. Heart sounds: No murmur heard. No gallop. Pulmonary: Breath sounds: No wheezing or rales. Musculoskeletal: General: No tenderness. Right lower le+ Pitting Edema present. Left lower le+ Pitting Edema present. Neurological: Mental Status: He is alert. Component Latest Ref Rng & Units 08/20/2021 Glucose 74 - 99 mg/dL 79 BUN 9 - 24 mg/dL 23 Creatinine 0.73 - 1.22 mg/dL 1.20 Sodium 136 - 144 mmol/L 139 Potassium 3.7 - 5.1 mmol/L 4.8 Chloride 97 - 105 mmol/L 105 CO2 22 - 30 mmol/L 24 Anion Gap 9 - 18 mmol/L 10 Calcium 8.5 - 10.2 mg/dL 9.0 eGFR >=60 mL/min/1.73m 60 d Dimer <500 ng/mL FEU 1,110 (H) D Dimer Age-related Cutoff ng/mL FEU 840 Assessment and Plan 1. Edema of both legs - ICD9: 782.3, ICD10: R60.0 (primary diagnosis) - US DVT LOWER BILAT. D dimer may be elevated from inflammatory arthritis, but DVT needs ruled out. - BASIC METABOLIC PNL - HYDROCHLOROTHIAZIDE 12.5 MG CAPSULE. Restart diuretic. Monitor kidney function. - US DVT LOWER BILAT - BASIC METABOLIC PNL 2. Essential hypertension - ICD9: 401.9, ICD10: I10 - good control - AMLODIPINE 5 MG TABLET. Dose reduced. 3. Diarrhea, unspecified type - ICD9: 787.91, ICD10: R19.7 Improved. Avoid dairy. - DIPHENOXYLATE-ATROPINE 2.5 MG-0.025 MG TABLET 4. Need for COVID-19 vaccine - ICD9: V04.89, ICD10: Z23 - PFIZER-BIONTECH COVID-19 VACCINE, AGE 12+ YR (CUNHA TOP) Santino Long MD documented in this encounter [facility] 08-20-2021 History of Present illness Narrative This note was created using [employer]. Subjective Lucinda Hernandez is a 85 year old male here with his spouse. He's had fluctuating edema of both legs right more than left for 3 weeks with no other symptoms. He's also had watery diarrhea for 3 weeks, 2-3 times a day. He's had antibiotics recently for pneumonia. C. Difficile was negative. His hypertension was controlled, and hydrochlorothiazide was discontinued due to acute kidney injury few months ago. Review of Systems Constitutional: Negative for appetite change, chills, fever and unexpected weight change. Respiratory: Negative for cough, chest tightness and shortness of breath. Cardiovascular: Positive for leg swelling. Negative for chest pain and palpitations. Gastrointestinal: Negative for abdominal pain, blood in stool, nausea and vomiting. Genitourinary: Negative. 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 hydrOXYchloroQUINE (PLAQUENIL) 200 mg tablet Take 1 tablet by mouth twice daily. naproxen (NAPROSYN) 250 mg tablet Take 500 mg by mouth twice daily with meals. pantoprazole DR (PROTONIX) 40 mg tablet Take 1 tablet by mouth once daily. lisinopril (ZESTRIL, PRINIVIL) 40 mg tablet Take 1 tablet by mouth once daily. mometasone (ELOCON) 0.1 % cream Apply 1 application to affected area once daily as needed. albuterol HFA (VENTOLIN HFA) 90 mcg/actuation inhaler Inhale 2 Puffs as instructed every 4 hours as needed for wheezing/shortness of breath. (Patient not taking: Reported on 07/28/2021 ) No current facility-administered medications for this visit. Objective BP 114/54 (BP Site: Right Arm, BP Position: Sitting, BP Cuff Size: Large Adult) Pulse (!) 56 Temp 36.2 C (97.1 F) (Temporal Artery) Resp 16 Wt 79.8 kg (176 lb) BMI 22.60 kg/m Physical Exam Constitutional: Appearance: He is not ill-appearing or diaphoretic. Cardiovascular: Rate and Rhythm: Regular rhythm. Bradycardia present. Heart sounds: No murmur heard. No gallop. Pulmonary: Effort: No respiratory distress. Breath sounds: No wheezing or rales. Abdominal: Palpations: Abdomen is soft. Tenderness: There is no abdominal tenderness. Musculoskeletal: General: No tenderness. Right lower le+ Edema present. Left lower le+ Edema present. Comments: No cords. Neurological: Mental Status: He is alert. Gait: Gait normal. Assessment and Plan 1. Edema of both legs - ICD9: 782.3, ICD10: R60.0 (primary diagnosis) - D-DIMER. If abnormal, venous duplex. If negative, consider restarting hydrochlorothiazide and decreasing amlodipine. 2. Gastroesophageal reflux disease, unspecified whether esophagitis present - ICD9: 530.81, ICD10: K21.9 Refilled. - PANTOPRAZOLE 40 MG TABLET,DELAYED RELEASE 3. Renal insufficiency - ICD9: 593.9, ICD10: N28.9 If stable, restart hydrochlorothiazide and decrease amlodipine dose. - BASIC METABOLIC PNL 4. Diarrhea, unspecified type - ICD9: 787.91, ICD10: R19.7 Short term. - DIPHENOXYLATE-ATROPINE 2.5 MG-0.025 MG TABLET Santino Long MD documented in this encounter [facility] 08-19-2021 Miscellaneous Notes Protocol recommends see provider within 4 hours. Pt reports I have an appointment tomorrow, why do I need to make one for today. Pt reports that he couldn't make it today. Told Pt he could go to EC or ER. Pts walked into room during conversation and seemed more agreeable to EC, but would like to know what provider says. Please call Pt and advise. Care plan reviewed with patient. Patient voices understanding. Advised patient that if symptoms get worse to be evaluated in Urgent Care or ER. Reason for Disposition Chest pain [1] Thigh, calf, or ankle swelling AND [2] only 1 side Answer Assessment - Initial Assessment Questions 1. LOCATION: In the middle of the chest, like where the sternum is. 2. RADIATION: Pt denies. 3. ONSET: Chest pain begin about a month ago. 4. PATTERN: The pain come and go, since it started. Pt denies it getting worse with exertion. 5. DURATION: Lasts about a couple of hours before it eases up. 6. SEVERITY: How bad is the pain? (e.g., Scale 1-10; mild, moderate, or severe) - MILD (1-3): doesn't interfere with normal activities - MODERATE (4-7): interferes with normal activities or awakens from sleep - SEVERE (8-10): excruciating pain, unable to do any normal activities Pt rates it a 2-3/10 right now, but it can get up to 5-6/10 at the most. 7. CARDIAC RISK FACTORS: Pt denies any history of heart problems, high cholesterol, smoker (not for over 50-60 years), or strong family history of heart disease. Pt report high blood pressure at times. 8. PULMONARY RISK FACTORS: Pt denies any history of lung disease. Pt denies blood clots in lung, asthma (had when he was young), or emphysema. 9. CAUSE: Pt denies. 10. OTHER SYMPTOMS: Pt denies dizziness, nausea, vomiting, sweating, fever, difficulty breathing, cough. Pt reports diarrhea for about 3 weeks. Has edema in ankles and feet R>L. 11. : N/A Answer Assessment - Initial Assessment Questions 1. LOCATION: Mainly the R ankle and foot are swollen 2. ONSET: The swelling started about 2 weeks ago. 3. SIZE: The swelling in the R ankle is about 2 inches greater. 4. PAIN: - NONE (0): no pain. - MILD (1-3): doesn't interfere with normal activities. - MODERATE (4-7): interferes with normal activities (e.g., work or school) or awakens from sleep, limping. - SEVERE (8-10): excruciating pain, unable to do any normal activities, unable to walk. Pt denies pain, states there is a numbness. 5. CAUSE: Pt denies. 6. OTHER SYMPTOMS: Pt denies fever, chest pain, difficulty breathing, or calf pain. Pt has had diarrhea for 3 weeks. 7. : N/A Protocols used: ANKLE [id number], CHEST [id number] documented in this encounter [facility] 08-06-2021 History of Present illness Narrative [facility] [place], 08/06/2021: Name: Lucinda Hernandez : 1935 The patient is here today with Larisa, spouse, who attends the entire visit, exam and discussion. HPI: Lucinda Hernandez is a 85 yo male former remote smoker with PMH significant for long standing seropositive RA, RENETTA, HTN, history of childhood asthma with recent cough and abnormal CT chest, treated for pneumonia per PCP. Patient initially seen in consultation with Dr. Helms on 07/02/[address] chest[address] Helms ordered viral respiratory panel, ANCA, CRP, quantitative immunoglobulins, eosinophil count and performed a bronchoscopy with BAL on 07/08/21. Bronchoscopy results negative for malignancy, gram stain with possible bacterial infection. Patient treated with Doxcycline. Today, patient states he feels much better after course of Doxycyline. Reports diarrhea that started approximately 2 weeks ago and is getting worse. No fevers or chills. No cough or sputum. No hemoptysis. No wheezing. No dyspnea at rest. Exertional dyspnea with push mowing the yard, however, he states he was not able to that a few weeks ago. Right ankle swelling that is new. Denies pain or trauma. PMH: Updated with patient today. FAMH: Updated with patient today. SOCH: Updated with patient today. IMMUNIZATIONS Prevnar - 10/23/2015 Pneumovax 23 - 01/02/2007 Influenza - 12/03/2020 COVID-19 - 12/18/2020, 04/17/2020, 03/20/2020 ROS: General: Generally feels improved. Appetite fair. Eyes, Ears, nose, throat: No post nasal drip, rhinorrhea, purulent nasal discharge, epistaxis. No hoarseness. Vision stable. Cardiac: No angina, edema, orthopnea. GI: No heartburn, dysphagia. See HPI. Musculoskeletal: No pain. Neuro: No headache, focal weakness, tremor. Skin: No rash. Otherwise negative. Allergies were reviewed and updated, and medications were reconciled with the patient. PHYSICAL EXAMINATION: BP 112/56 (BP Site: Right Arm, BP Position: Sitting, BP Cuff Size: Regular Adult) Pulse (!) 56 Temp 36.6 C (97.9 F) (Temporal) Resp 18 Ht 188 cm (6' 2 ) Wt 81.3 kg (179 lb 3.2 oz) SpO2 97% BMI 23.01 kg/m Gen: No acute distress. Cooperative with examination. ENT: Oral hygeine and dentition good. Pharynx clear. No halitosis. Resp: No stridor, accessory respiratory muscle use, supra-sternal or intercostal retractions. No wheezes. Bibasilar crackles. CV: Regular rythm. Heart tones normal. Radial pulses normal. Abd: Non distended. MSK: No kyphoscoliosis. Ext: Warm and well perfused. No clubbing, cyanosis, edema. Skin: No rash, ecchymoses. Neuro: Mental status normal. Affect normal. No tremor. DATA REVIEW: CT chest, 06/30/2021 IMPRESSION: Multiple groundglass opacities in the bilateral lungs with foci of consolidation in the right upper lobe. The findings are nonspecific in etiology. The top differential consideration includes inflammatory/infectious process such as virus pneumonia, hypersensitivity pneumonitis, pulmonary alveolar proteinosis, eosinophilic pneumonia, etc. Clinical correlation is suggested. Comparison: The study is correlated with patient's chest x-ray on 06/02/2021. RESULT: Limitations: None. Lines, tubes, and devices: None. Lung parenchyma and airways: The central airways are patent. The bilateral lungs are remarkable for multiple groundglass opacities, slightly perihilar prominence. Foci of consolidations seen in the right upper lung. No solid mass identified. There are atelectatic changes in the medial right lower lobe. Pleural space: No pleural effusion or pneumothorax. No pleural thickening. Lower neck, lymph nodes, and mediastinum: The imaged thyroid gland is normal. No lymphadenopathy in the supraclavicular, axillary, mediastinal, or hilar regions, although a few subcentimeter in short I is mediastinal lymph nodes are visualized. Heart, pericardium, and thoracic vessels: The thoracic aorta and main pulmonary artery are normal in caliber. The cardiac chambers are normal in size. No punctate coronary artery atherosclerotic calcifications are noted, although the study is not optimized for coronary assessment. No pericardial effusion or thickening. Bones and soft tissues: The spine shows the degenerative changes with multilevel disc space narrowing. No destructive bone lesion. Left greater than right bilateral gynecomastia is noted. Upper abdomen: Limited study through the upper abdomen demonstrates no substantial abnormalities. Conche Operator (topogram) images: No additional findings. ASSESSMENT/PLAN: 1. Ground glass opacity present on imaging of lung - ICD9: 793.19, ICD10: R91.8 (primary diagnosis) s/p bronchoscopy 07/08/21 negative for cancer, gram stain revealed possible bacterial infection and patient treated with Doxycycline. Discussed results of bronch with patient and . - SPIROMETRY - BASELINE AND POST DILATOR 2. Dyspnea and respiratory abnormalities - ICD9: 786.09, ICD10: R06.00, R06.89 - SPIROMETRY - BASELINE AND POST DILATOR 3. Diarrhea, unspecified type - ICD9: 787.91, ICD10: R19.7 Patient on multiple courses of antibiotics and therefore need to rule out C Diff Encouraged patient to eat yogurt daily and/or take probiotics. - C. DIFFICILE PCR 4. 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 Libra Fallon PA-C documented in this encounter [facility] 07-28-2021 Nurse Note Patient c/o congestion and weakness. He also c/o rash and lips are sore/bleeding. He had pneumonia beginning of June. documented in this encounter [facility] 07-28-2021 History of Present illness Narrative This is a consultation requested by Drs. Bal and Dr. Helms for an allergy and immunology evaluation. My final recommendations will be communicated back to the requesting healthcare provider(s) by way of shared medical record or via [place] mail. Lucinda Hernandez is a 85 year old male who presents for further evaluation of hypogammaglobulinemia. On July 02, 2021, IgG was below normal at 576, IgM was less than 5, IgA was normal, IgE was normal. He has been treated with Rituxan for rheumatoid arthritis for about 12 years. Most recent infusion was 6 months ago. Treatment with Rituxan is currently on hold. He previously was also treated with sulfasalazine. He has been taking Plaquenil for several years. Denies treatment with systemic corticosteroids in the past year. In Jun, 2021, he developed cough, fatigue, chest congestion and low-grade temperature of 100 F. He presented to urgent care where chest x-ray showed possible infrahilar infiltrate and possible lung nodule. He was treated as an outpatient with Augmentin and doxycycline. He complains of continued chest congestion. He has been evaluated by pulmonary medicine. On CT chest completed June 30, 2021, multiple ground glass opacities were noted bilaterally. Bronchoscopy was grossly normal. Per patient, Diflucan and doxycycline were prescribed based on culture results. Final results are pending. He had 1 other episode of pneumonia also treated as an outpatient, 1 to 2 years ago. Denies a history of recurrent or chronic rhinosinusitis. Denies a history of recurrent or chronic otitis media. She denies a history of cutaneous infections including cellulitis, abscesses and shingles. Denies a history of dental infections. Denies a history of gastrointestinal infections. There is no family history of immunodeficiency. He also complains of intermittent edema of the right lower leg. Recently, he has developed erythematous skin lesions on his face and hands. Some lesions are tender but are not pruritic. He also has developed inflammation and cracking of the lower lip with some bleeding. Denies lesions inside the mouth. REVIEW OF SYSTEMS: SINUSITIS: The patient does not suffer from frequent sinopulmonary infections. ASTHMA: History of asthma in childhood ECZEMA: History of eczema in childhood URTICARIA:The patient does not have a history of urticaria and/or angioedema. GERD: He takes Protonix 40 mg daily for GERD INSECT STING: The patient does not have a history of systemic reaction to insect sting. FOOD ALLERGY:The patient denies history of food allergy. LATEX: The patient does not have a history of adverse reaction to latex. All other review of systems negative except for those listed above. 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 Denise Gama. Synvisc injections. HYPERSOMNI W SLEEP APNEA 03/19/2003 HYPERTENSION NOS 06/15/2005 Rheumatoid arthritis involving multiple sites with positive rheumatoid factor (HCC) 01/29/2015 CCP +, RF +, erosive. Early Rx in 2002: SSZ and plaquenil. Progression of dz 06/2010- tried Enbrel x ~ 1 months (rash - stopped). RTX 01/2011, 08/2011, 03/2012, 11/2012, 06/2013, 01/2014, 07/2014, 01/2015, 08/2015, 03/2016 MEDICATIONS: amLODIPine (NORVASC) 10 mg tablet Take 1 tablet by mouth once daily. hydrOXYchloroQUINE (PLAQUENIL) 200 mg tablet Take 1 tablet by mouth twice daily. naproxen (NAPROSYN) 250 mg tablet Take 250 mg by mouth once daily. pantoprazole DR (PROTONIX) 40 mg tablet Take 1 tablet by mouth once daily. lisinopril (ZESTRIL, PRINIVIL) 40 mg tablet Take 1 tablet by mouth once daily. mometasone (ELOCON) 0.1 % cream Apply 1 application to affected area once daily as needed. abatacept (ORENCIA) 125 mg/mL Inject 125mg (1 syringe) subcutaneously one time a week. albuterol HFA (VENTOLIN HFA) 90 mcg/actuation inhaler Inhale 2 Puffs as instructed every 4 hours as needed for wheezing/shortness of breath. ALLERGIES: Allergies As of Date: 07/28/2021 Allergen Noted Reaction ENBREL [ETANERCEPT] 10/14/2010 Rash Fully Assessed 07/28/2021 PAST SURGICAL HISTORY Procedure Laterality Date ARTHRP KNE CONDYLE&PLATU MEDIAL&LAT COMPARTMENTS 2011 Bilateral COLONOSCOPY 08/09/2012 COLONOSCOPY FLX DX W/COLLJ SPEC WHEN PFRMD 05/18/2005 PAST SURGICAL HISTORY OF Left 01/06/2001 Inguinal hernia x 2 PAST SURGICAL HISTORY OF 04/04/2003 Right foot surgery PAST SURGICAL HISTORY OF 06/23/2017 Right cataract surgery PAST SURGICAL HISTORY OF 07/04/2017 Left cataract surgery UVULECTOMY EXCISION UVULA 1987 [facility], Dr. Temple FAMILY HISTORY: Allergic rhinitis:no. Asthma: no. Eczema: no. Cystic fibrosis: no. Immunodeficiency: no. 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 Pets in the home: There are no pets in the home Outdoor animals: There are no outdoor animals Tobacco smoke: No exposure in the home. Physical Exam: GENERAL APPEARANCE:Well appearing, alert, in no acute distress, well-hydrated, well nourished. HEENT: NCAT. EYES: conjunctiva and sclera normal. EARS: External ears normal. Canals clear. TM's normal. NOSE/SINUS: Nares normal. Septum midline. Mucosa normal. No drainage or sinus tenderness. THROAT: no erythema NECK:neck supple, no adenopathy HEART:RRR with normal S1 and S2 ,no murmurs, no gallops, no rubs LUNGS: clear to auscultation bilaterally, no wheezes, rales or rhonchi ABDOMEN:soft, nontender, nondistended, without organomegaly or palpable masses EXTREMITIES:Extremities normal, No deformities, No skin discoloration and No edema SKIN: Significant for dry cracking lips with dried blood and scabs visible on the lower lip. Scattered areas of erythema on the dorsal forearms and hands. Some areas are mildly raised. ASSESSMENT/PLAN: 1.) Hypogammaglobulinemia: Differential diagnosis includes hypogammaglobulinemia secondary to use of immunosuppressive medications such as Rituxan, sulfasalazine and Plaquenil and common variable immunodeficiency. Rituxan seems to be the most likely cause. CBC with differential and platelets, CDC immunodeficiency panel, IgG titers to tetanus, diphtheria and strep pneumoniae will be obtained. Depending on those results, booster vaccination with repeat titers 1 month post vaccination may be recommended. If further evaluation supports a diagnosis of a humoral immunodeficiency, treatment with IgG replacement therapy may be warranted. Discussed IVIG and subcutaneous IgG replacement with the patient and his today. Potential adverse effects including anaphylaxis, infection, thrombosis and renal failure were discussed. 2.) Chest congestion: Continue to follow-up with pulmonary medicine. Will defer to pulmonary but I would consider obtaining pulmonary function testing on this patient. 3.) Rheumatoid arthritis: Continue to follow-up with rheumatology 4.) Discussed medication dosage, usage, side effects, and goals of treatment in detail. 5.) Patient will be contacted with laboratory results and further recommendations regarding follow-up will be made at that time.- patient will return sooner should new symptoms or problems arise. Edith Kim MD documented in this encounter [facility] 07-27-2021 Miscellaneous Notes Patient is electronically requesting refill: Pending Prescriptions Disp Refills HYDROXYCHLOROQUINE 200 MG TABLET 360 tablet 0 Sig: Take 1 tablet by mouth twice daily. NIKOLAS: No Please review and approve Su Rai documented in this encounter [facility] 07-27-2021 Miscellaneous Notes JHONATHAN: 06/12/2021 Last refill: 04/28/2021 QTY: 90 Refills: 1 Patient's request for medication is as follows: Pending Prescriptions Disp Refills AMLODIPINE 10 MG TABLET 90 tablet 1 Sig: Take 1 tablet by mouth once daily. NIKOLAS: No Please approve the above prescription(s) to electronically send to pharmacy. Jeff Haydne Ma documented in this encounter [facility] 07-10-2021 Miscellaneous Notes Left voicemail message with preliminary results. Cytology negative for cancer, Gram stain with possible bacterial infection. Other unusual organisms negative. Fungal and AFB cultures are still pending. Will send in prescription for doxycycline documented in this encounter [facility] 07-07-2021 History of Present illness Narrative HISTORY AND PHYSICAL Lucinda Hernandez 1935 REFERRING PHYSICIAN: Liliana Patel APRN.MANAGER [employer] COMPLAINT: Consult (Positive Fecal Occult Blood Test) HPI: The patient is a 85 year old male referred for endoscopy. Lucinda notes no history of colon complaints. The patient notes no history of upper GI complaints. Lucinda has undergone prior endoscopy. 2012 Dr. Funez performed a colonoscopy noted to have some internal hemorrhoids otherwise was negative Patient is scheduled to have a bronchoscopy tomorrow. Patient has been complaining of shortness of breath on exertion. He states that he can only mow his yard for 3-4 passes and then he gets extremely short of breath. He is not experiencing any chest pain. The patient is being seen by me today at the request of Dr. Santino Long MD for my opinion and advice regarding heme positive stools. 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 Denise Gama. Synvisc injections. HYPERSOMNI W SLEEP APNEA 03/19/2003 HYPERTENSION NOS 06/15/2005 Rheumatoid arthritis involving multiple sites with positive rheumatoid factor (HCC) 01/29/2015 CCP +, RF +, erosive. Early Rx in 2002: SSZ and plaquenil. Progression of dz 06/2010- tried Enbrel x ~ 1 months (rash - stopped). RTX 01/2011, 08/2011, 03/2012, 11/2012, 06/2013, 01/2014, 07/2014, 01/2015, 08/2015, 03/2016 PAST SURGICAL HISTORY Procedure Laterality Date ARTHRP KNE CONDYLE&PLATU MEDIAL&LAT COMPARTMENTS 2011 Bilateral COLONOSCOPY 08/09/2012 COLONOSCOPY FLX DX W/COLLJ SPEC WHEN PFRMD 05/18/2005 PAST SURGICAL HISTORY OF Left 01/06/2001 Inguinal hernia x 2 PAST SURGICAL HISTORY OF 04/04/2003 Right foot surgery PAST SURGICAL HISTORY OF 06/23/2017 Right cataract surgery PAST SURGICAL HISTORY OF 07/04/2017 Left cataract surgery UVULECTOMY EXCISION UVULA [address] [facility], Dr. Temple Current Outpatient Medications Medication Sig naproxen (NAPROSYN) 250 mg tablet Take 250 mg by mouth once daily. pantoprazole DR (PROTONIX) 40 mg tablet Take 1 tablet by mouth once daily. abatacept (ORENCIA) 125 mg/mL Inject 125mg (1 syringe) subcutaneously one time a week. (Patient not taking: Reported on 06/02/2021 ) amLODIPine (NORVASC) 10 mg tablet Take 1 tablet by mouth once daily. lisinopril (ZESTRIL, PRINIVIL) 40 mg tablet Take 1 tablet by mouth once daily. albuterol HFA (VENTOLIN HFA) 90 mcg/actuation inhaler Inhale 2 Puffs as instructed every 4 hours as needed for wheezing/shortness of breath. mometasone (ELOCON) 0.1 % cream Apply 1 application to affected area once daily as needed. No current facility-administered medications for this visit. ALLERGIES: Enbrel [Etanercept] PERSONAL HISTORY: Social History Tobacco Use Smoking status: Former Smoker Types: Cigarettes Quit date: 03/19/1963 Years since quittin.3 Smokeless tobacco: Never Used Tobacco comment: 1 ppd Vaping Use Vaping Use: Never used Substance Use Topics Alcohol use: Yes Alcohol/week: 35.0 standard drinks Types: 14 Glasses of Wine (5oz) per week Drug use: No FAMILY HISTORY: FAMILY HISTORY Problem Relation Age of Onset Diabetes Mother Coronary Artery Disease Mother [place] at age 82 Ischemic Heart Disease Father at age 66 other (pituitary tumor) Brother other (Other) Brother aspiration pneumonia Coronary Artery Disease Brother Hypertension Brother REVIEW OF SYMPTOMS: The review of systems data was entered by the nurse and reviewed by nh Nursing Notes: Raven Padron 07/07/2021 8:48 AM Signed REVIEW OF SYSTEMS: General: The patient NOTES fatigue, denies weight loss, denies weight gain, denies feeling hot, and denies feelings of cold. Eyes: The patient denies glaucoma, denies eye injury/surgery, does not wear glasses or contacts. Ear/Nose/Throat: The patient denies allergies, denies hayfever, denies ear infections, and denies bloody noses. Cardiovascular: The patient denies chest pain, denies heart disease, denies high blood pressure,denies cardiac stent, denies prior heart attack, denies irregular heart beat, denies high cholesterol, denies poor circulation, denies heart failure, other cardiac issues, denies claudication, denies cold feet, denies peripheral arterial stent. Respiratory: The patient denies tuberculosis, NOTES pneumonia, denies frequent cough, denies pulmonary embolism, NOTES shortness of breath, and denies coughing up blood. Gastrointestinal: The patient denies difficulty swallowing, NOTES acid reflux, denies ulcers, denies vomiting, denies jaundice/hepatitis, denies gallbladder problems, denies black or tarry stools, denies hemorrhoids, denies bleeding from rectum, denies diverticulitis, denies constipation, denies diarrhea, denies loss of stool control, and denies hernias. Kidney/Bladder: The patient denies kidney stones, denies urine infections, and denies bloody urine. Skin: The patient denies a history of skin cancer, denies bleeding/changing moles, and denies a history of skin rash. Neurologic: The patient denies a history of epilepsy/convulsions, denies headaches, denies head/spinal injuries, and denies stroke/TIA. Psychiatric: The patient denies psychiatric medications, denies depression, and denies voices, denies substance abuse. Endocrine: The patient denies thyroid disorders, denies diabetes, and denies hormonal problems. Hematologic: The patient NOTES a history of bruising, denies bleeding, and NOTES anemia, denies blood clots. Infections: The patient NOTES a history of measles and mumps, denies rheumatic fever, and denies sexually transmitted diseases. Musculoskeletal: The patient denies back pain/injury, denies back problems, denies sciatica, NOTES knee/foot trouble, NOTES arthritis, or denies gout. When was patient's last Mammogram screening? N/A Last Colonoscopy: 07/30/2012 Raven Padron PHYSICAL EXAMINATION: General: The patient is 85 year old male, well nourished, well hydrated in no acute distress. The patient is oriented to time, place, and person. VITALS: Blood pressure 114/56, pulse 69, temperature 36.2 C (97.2 F), height 188 cm (6' 2 ), weight 81.6 kg (180 lb), SpO2 98 %. Body mass index is 23.11 kg/m . HEENT: Normal cephalic, ataumatic, pupils are equally round, sclera are anicteric, mucous membranes are moist, oropharynx is clear. Neck has no masses, asymmetry or lymphadenopathy. Thyroid is unremarkable. Respiratory: Clear to auscultation and percussion. Normal respiratory excursion and pattern. Cardiac: Examination is regular rate and rhythm. Abdominal exam: Soft, nontender, with no palpable masses. No hepatosplenomegaly. No palpable hernias. Rectal exam: exam deferred Extremities: no clubbing, cyanosis or edema. No adenopathy. Other: LABORATORY VALUES: As Noted RADIOLOGIC STUDIES: As Noted Assessment IMPRESSION: Positive fecal occult blood test Anemia, unspecified type Sob (shortness of breath) on exertion (primary encounter diagnosis) PLAN: After the patient's bronchoscopy he is going to have to follow back up with his primary care physician and he will need to have a stress test performed to evaluate his heart. If his heart is okay I plan to perform upper and lower endoscopy. We discussed the risks and benefits of the planned endoscopy. I have informed the patient that complications can occur including failure to complete the endoscopy and perforation. The patient had the opportunity to ask questions concerning the planned endoscopy. My staff has also explained the procedure to the patient in understandable terms and has given the patient printed material concerning the procedure. The patient freely consents to surgery. I plan to use golytely bowel preparation for endoscopy Diagnoses: (R06.02) SOB (shortness of breath) on exertion (primary encounter diagnosis) (R19.5) Positive fecal occult blood test (D64.9) Anemia, unspecified type My findings have been communicated to Dr. Santino Long MD via shared medical record. This note will be forwarded to Dr. Santino Long MD. My findings have been communicated to Santino Long MD via shared medical record. This note will be forwarded to Santino Long MD. Return to Clinic: The patient is instructed to follow-up with me after the testing has been completed. Umang Guidry III, MD documented in this encounter [facility] 07-07-2021 Nurse Note REVIEW OF SYSTEMS: General: The patient NOTES fatigue, denies weight loss, denies weight gain, denies feeling hot, and denies feelings of cold. Eyes: The patient denies glaucoma, denies eye injury/surgery, does not wear glasses or contacts. Ear/Nose/Throat: The patient denies allergies, denies hayfever, denies ear infections, and denies bloody noses. Cardiovascular: The patient denies chest pain, denies heart disease, denies high blood pressure,denies cardiac stent, denies prior heart attack, denies irregular heart beat, denies high cholesterol, denies poor circulation, denies heart failure, other cardiac issues, denies claudication, denies cold feet, denies peripheral arterial stent. Respiratory: The patient denies tuberculosis, NOTES pneumonia, denies frequent cough, denies pulmonary embolism, NOTES shortness of breath, and denies coughing up blood. Gastrointestinal: The patient denies difficulty swallowing, NOTES acid reflux, denies ulcers, denies vomiting, denies jaundice/hepatitis, denies gallbladder problems, denies black or tarry stools, denies hemorrhoids, denies bleeding from rectum, denies diverticulitis, denies constipation, denies diarrhea, denies loss of stool control, and denies hernias. Kidney/Bladder: The patient denies kidney stones, denies urine infections, and denies bloody urine. Skin: The patient denies a history of skin cancer, denies bleeding/changing moles, and denies a history of skin rash. Neurologic: The patient denies a history of epilepsy/convulsions, denies headaches, denies head/spinal injuries, and denies stroke/TIA. Psychiatric: The patient denies psychiatric medications, denies depression, and denies voices, denies substance abuse. Endocrine: The patient denies thyroid disorders, denies diabetes, and denies hormonal problems. Hematologic: The patient NOTES a history of bruising, denies bleeding, and NOTES anemia, denies blood clots. Infections: The patient NOTES a history of measles and mumps, denies rheumatic fever, and denies sexually transmitted diseases. Musculoskeletal: The patient denies back pain/injury, denies back problems, denies sciatica, NOTES knee/foot trouble, NOTES arthritis, or denies gout. When was patient's last Mammogram screening? N/A Last Colonoscopy: 07/30/2012 Raven Padron documented in this encounter [facility] documented as of this encounter (statuses as of 07/06/2022) [facility] History of Past illness Narrative* Problem Noted Date Resolved Date Viral pneumonia 07/06/2021 07/06/2022 Last Assessment & Plan: Assessment: recently tx with atb 4 weeks ago with no improvement, CT revealed viral pneumonia, pending bronchoscopy Visit for monitoring Rituxan therapy 05/25/2017 08/31/2017 Visit for monitoring Rituxan therapy 06/30/2016 09/01/2016 Testalgia, left 10/08/2015 10/27/2017 Cough 05/28/2015 03/22/2016 Psoriasis of scalp 12/26/2013 12/26/2013 Overview: Dermatology: Dr. Zach Velazquez. 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 10/14/2010 7 Hypersomnia with sleep apnea, unspecified 200310/22/2016 documented as of this encounter (statuses as of 07/14/2022) [facility] History of Past illness Narrative* Problem Noted Date Resolved Date Viral pneumonia 07/06/2021 07/06/2022 Last Assessment & Plan: Assessment: recently tx with atb 4 weeks ago with no improvement, CT revealed viral pneumonia, pending bronchoscopy Visit for monitoring Rituxan therapy 05/25/2017 08/31/2017 Visit for monitoring Rituxan therapy 06/30/2016 09/01/2016 Testalgia, left 10/08/2015 10/27/2017 Cough 05/28/2015 03/22/2016 Psoriasis of scalp 12/26/2013 12/26/2013 Overview: Dermatology: Dr. Zach Velazquez. 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 10/14/2010 7 Hypersomnia with sleep apnea, unspecified 200310/22/2016 documented as of this encounter (statuses as of 08/12/2022) [facility] History of Past illness Narrative* Problem Noted Date Resolved Date Viral pneumonia 07/06/2021 07/06/2022 Last Assessment & Plan: Assessment: recently tx with atb 4 weeks ago with no improvement, CT revealed viral pneumonia, pending bronchoscopy Visit for monitoring Rituxan therapy 05/25/2017 08/31/2017 Visit for monitoring Rituxan therapy 06/30/2016 09/01/2016 Testalgia, left 10/08/2015 10/27/2017 Cough 05/28/2015 03/22/2016 Psoriasis of scalp 12/26/2013 12/26/2013 Overview: Dermatology: Dr. Zach Velazquez. 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 10/14/2010 7 Hypersomnia with sleep apnea, unspecified 200310/22/2016 documented as of this encounter (statuses as of 08/18/2022) [facility] History of Past illness Narrative* Problem Noted Date Diagnosed Date Resolved Date Viral pneumonia 07/06/2021 07/06/2022 Last Assessment & Plan: Assessment: recently tx with atb 4 weeks ago with no improvement, CT revealed viral pneumonia, pending bronchoscopy Anemia 07/06/2021 10/06/2022 Last Assessment & Plan: Assessment: no tx CBC with diff: WBC 10.33 07/02/2021 RBC 3.56 07/02/2021 Hemoglobin 10.7 07/02/2021 Hematocrit 32.5 07/02/2021 MCV 91.3 07/02/2021 MCH 30.1 07/02/2021 MCHC 32.9 07/02/2021 RDW-CV 13.3 07/02/2021 Platelet Count 398 07/02/2021 MPV 10.7 07/02/2021 Neut% 77.8 07/02/2021 Lymph% 10.5 07/02/2021 Pope% 8.5 07/02/2021 Eosin% 7.5 03/16/2021 Baso% 0.2 07/02/2021 Abs Neut (ANC) 8.04 07/02/2021 Abs Lym 1.42 11/19/1999 Abs Pope 0.88 07/02/2021 Abs Eosin 0.23 07/02/2021 Abs Baso <0.03 07/02/2021 Ground glass opacity present on imaging of lung 07/02/2021 10/06/2022 Last Assessment & Plan: Assessment: pending bronchoscopy Bradycardia 11/28/2018 10/06/2022 Visit for monitoring Rituxan therapy 05/25/2017 08/31/2017 Visit for monitoring Rituxan therapy 06/30/2016 09/01/2016 Testalgia, left 10/08/2015 10/27/2017 Cough 05/28/2015 03/22/2016 Psoriasis of scalp 12/26/2013 4 Overview: Dermatology: Dr. Zach Velazquez. 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 10/14/201003/22 Hypersomnia with sleep apnea, unspecified 03/19/2003 10/22/2016 documented as of this encounter (statuses as of 10/06/2022) [facility] [facility]05-16-2022 History of Past illness Narrative* Problem Noted Date Diagnosed Date Resolved Date Viral pneumonia 07/06/2021 07/06/2022 Last Assessment & Plan: Assessment: recently tx with atb 4 weeks ago with no improvement, CT revealed viral pneumonia, pending bronchoscopy Anemia 07/06/2021 10/06/2022 Last Assessment & Plan: Assessment: no tx CBC with diff: WBC 10.33 07/02/2021 RBC 3.56 07/02/2021 Hemoglobin 10.7 07/02/2021 Hematocrit 32.5 07/02/2021 MCV 91.3 07/02/2021 MCH 30.1 07/02/2021 MCHC 32.9 07/02/2021 RDW-CV 13.3 07/02/2021 Platelet Count 398 07/02/2021 MPV 10.7 07/02/2021 Neut% 77.8 07/02/2021 Lymph% 10.5 07/02/2021 Pope% 8.5 07/02/2021 Eosin% 7.5 03/16/2021 Baso% 0.2 07/02/2021 Abs Neut (ANC) 8.04 07/02/2021 Abs Lym 1.42 11/19/1999 Abs Pope 0.88 07/02/2021 Abs Eosin 0.23 07/02/2021 Abs Baso <0.03 07/02/2021 Ground glass opacity present on imaging of lung 07/02/2021 10/06/2022 Last Assessment & Plan: Assessment: pending bronchoscopy Bradycardia 11/28/2018 10/06/2022 Visit for monitoring Rituxan therapy 05/25/2017 08/31/2017 Visit for monitoring Rituxan therapy 06/30/2016 09/01/2016 Testalgia, left 10/08/2015 10/27/2017 Cough 05/28/2015 03/22/2016 Psoriasis of scalp 12/26/2013 4 Overview: Dermatology: Dr. Zach Velazquez. 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 10/14/201003/22 Hypersomnia with sleep apnea, unspecified 03/19/2003 10/22/2016 documented as of this encounter (statuses as of 10/13/2022) [facility]05-16-2022 History of Past illness Narrative* Problem Noted Date Diagnosed Date Resolved Date Viral pneumonia 07/06/2021 07/06/2022 Last Assessment & Plan: Assessment: recently tx with atb 4 weeks ago with no improvement, CT revealed viral pneumonia, pending bronchoscopy Anemia 07/06/2021 10/06/2022 Last Assessment & Plan: Assessment: no tx CBC with diff: WBC 10.33 07/02/2021 RBC 3.56 07/02/2021 Hemoglobin 10.7 07/02/2021 Hematocrit 32.5 07/02/2021 MCV 91.3 07/02/2021 MCH 30.1 07/02/2021 MCHC 32.9 07/02/2021 RDW-CV 13.3 07/02/2021 Platelet Count 398 07/02/2021 MPV 10.7 07/02/2021 Neut% 77.8 07/02/2021 Lymph% 10.5 07/02/2021 Pope% 8.5 07/02/2021 Eosin% 7.5 03/16/2021 Baso% 0.2 07/02/2021 Abs Neut (ANC) 8.04 07/02/2021 Abs Lym 1.42 11/19/1999 Abs Pope 0.88 07/02/2021 Abs Eosin 0.23 07/02/2021 Abs Baso <0.03 07/02/2021 Ground glass opacity present on imaging of lung 07/02/2021 10/06/2022 Last Assessment & Plan: Assessment: pending bronchoscopy Bradycardia 11/28/2018 10/06/2022 Visit for monitoring Rituxan therapy 05/25/2017 08/31/2017 Visit for monitoring Rituxan therapy 06/30/2016 09/01/2016 Testalgia, left 10/08/2015 10/27/2017 Cough 05/28/2015 03/22/2016 Psoriasis of scalp 12/26/2013 4 Overview: Dermatology: Dr. Zach Velazquez. 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 10/14/201003/22 Hypersomnia with sleep apnea, unspecified 03/19/2003 10/22/2016 documented as of this encounter (statuses as of 10/19/2022) [facility]05-16-2022 History of Past illness Narrative* Problem Noted Date Diagnosed Date Resolved Date Viral pneumonia 07/06/2021 07/06/2022 Last Assessment & Plan: Assessment: recently tx with atb 4 weeks ago with no improvement, CT revealed viral pneumonia, pending bronchoscopy Anemia 07/06/2021 10/06/2022 Last Assessment & Plan: Assessment: no tx CBC with diff: WBC 10.33 07/02/2021 RBC 3.56 07/02/2021 Hemoglobin 10.7 07/02/2021 Hematocrit 32.5 07/02/2021 MCV 91.3 07/02/2021 MCH 30.1 07/02/2021 MCHC 32.9 07/02/2021 RDW-CV 13.3 07/02/2021 Platelet Count 398 07/02/2021 MPV 10.7 07/02/2021 Neut% 77.8 07/02/2021 Lymph% 10.5 07/02/2021 Pope% 8.5 07/02/2021 Eosin% 7.5 03/16/2021 Baso% 0.2 07/02/2021 Abs Neut (ANC) 8.04 07/02/2021 Abs Lym 1.42 11/19/1999 Abs Pope 0.88 07/02/2021 Abs Eosin 0.23 07/02/2021 Abs Baso <0.03 07/02/2021 Ground glass opacity present on imaging of lung 07/02/2021 10/06/2022 Last Assessment & Plan: Assessment: pending bronchoscopy Bradycardia 11/28/2018 10/06/2022 Visit for monitoring Rituxan therapy 05/25/2017 08/31/2017 Visit for monitoring Rituxan therapy 06/30/2016 09/01/2016 Testalgia, left 10/08/2015 10/27/2017 Cough 05/28/2015 03/22/2016 Psoriasis of scalp 12/26/2013 4 Overview: Dermatology: Dr. Zach Velazquez. 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 10/14/201003/22 Hypersomnia with sleep apnea, unspecified 03/19/2003 10/22/2016 documented as of this encounter (statuses as of 10/21/2022) [facility]05-16-2022 History of Past illness Narrative* Problem Noted Date Diagnosed Date Resolved Date Viral pneumonia 07/06/2021 07/06/2022 Last Assessment & Plan: Assessment: recently tx with atb 4 weeks ago with no improvement, CT revealed viral pneumonia, pending bronchoscopy Anemia 07/06/2021 10/06/2022 Last Assessment & Plan: Assessment: no tx CBC with diff: WBC 10.33 07/02/2021 RBC 3.56 07/02/2021 Hemoglobin 10.7 07/02/2021 Hematocrit 32.5 07/02/2021 MCV 91.3 07/02/2021 MCH 30.1 07/02/2021 MCHC 32.9 07/02/2021 RDW-CV 13.3 07/02/2021 Platelet Count 398 07/02/2021 MPV 10.7 07/02/2021 Neut% 77.8 07/02/2021 Lymph% 10.5 07/02/2021 Pope% 8.5 07/02/2021 Eosin% 7.5 03/16/2021 Baso% 0.2 07/02/2021 Abs Neut (ANC) 8.04 07/02/2021 Abs Lym 1.42 11/19/1999 Abs Pope 0.88 07/02/2021 Abs Eosin 0.23 07/02/2021 Abs Baso <0.03 07/02/2021 Ground glass opacity present on imaging of lung 07/02/2021 10/06/2022 Last Assessment & Plan: Assessment: pending bronchoscopy Bradycardia 11/28/2018 10/06/2022 Visit for monitoring Rituxan therapy 05/25/2017 08/31/2017 Visit for monitoring Rituxan therapy 06/30/2016 09/01/2016 Testalgia, left 10/08/2015 10/27/2017 Cough 05/28/2015 03/22/2016 Psoriasis of scalp 12/26/2013 4 Overview: Dermatology: Dr. Zach Velazquez. 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 10/14/201003/22 Hypersomnia with sleep apnea, unspecified 03/19/2003 10/22/2016 documented as of this encounter (statuses as of 11/20/2022) [facility]05-16-2022 History of Past illness Narrative* Problem Noted Date Diagnosed Date Resolved Date Viral pneumonia 07/06/2021 07/06/2022 Last Assessment & Plan: Assessment: recently tx with atb 4 weeks ago with no improvement, CT revealed viral pneumonia, pending bronchoscopy Anemia 07/06/2021 10/06/2022 Last Assessment & Plan: Assessment: no tx CBC with diff: WBC 10.33 07/02/2021 RBC 3.56 07/02/2021 Hemoglobin 10.7 07/02/2021 Hematocrit 32.5 07/02/2021 MCV 91.3 07/02/2021 MCH 30.1 07/02/2021 MCHC 32.9 07/02/2021 RDW-CV 13.3 07/02/2021 Platelet Count 398 07/02/2021 MPV 10.7 07/02/2021 Neut% 77.8 07/02/2021 Lymph% 10.5 07/02/2021 Pope% 8.5 07/02/2021 Eosin% 7.5 03/16/2021 Baso% 0.2 07/02/2021 Abs Neut (ANC) 8.04 07/02/2021 Abs Lym 1.42 11/19/1999 Abs Pope 0.88 07/02/2021 Abs Eosin 0.23 07/02/2021 Abs Baso <0.03 07/02/2021 Ground glass opacity present on imaging of lung 07/02/2021 10/06/2022 Last Assessment & Plan: Assessment: pending bronchoscopy Bradycardia 11/28/2018 10/06/2022 Visit for monitoring Rituxan therapy 05/25/2017 08/31/2017 Visit for monitoring Rituxan therapy 06/30/2016 09/01/2016 Testalgia, left 10/08/2015 10/27/2017 Cough 05/28/2015 03/22/2016 Psoriasis of scalp 12/26/2013 Overview: Dermatology: Dr. Zach Velazquez. 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 10/14/201003/22 Hypersomnia with sleep apnea, unspecified 03/19/2003 10/22/2016 documented as of this encounter (statuses as of 12/28/2022) [facility]05-16-2022 History of Past illness Narrative* Problem Noted Date Diagnosed Date Resolved Date Viral pneumonia 07/06/2021 07/06/2022 Last Assessment & Plan: Assessment: recently tx with atb 4 weeks ago with no improvement, CT revealed viral pneumonia, pending bronchoscopy Anemia 07/06/2021 10/06/2022 Last Assessment & Plan: Assessment: no tx CBC with diff: WBC 10.33 07/02/2021 RBC 3.56 07/02/2021 Hemoglobin 10.7 07/02/2021 Hematocrit 32.5 07/02/2021 MCV 91.3 07/02/2021 MCH 30.1 07/02/2021 MCHC 32.9 07/02/2021 RDW-CV 13.3 07/02/2021 Platelet Count 398 07/02/2021 MPV 10.7 07/02/2021 Neut% 77.8 07/02/2021 Lymph% 10.5 07/02/2021 Pope% 8.5 07/02/2021 Eosin% 7.5 03/16/2021 Baso% 0.2 07/02/2021 Abs Neut (ANC) 8.04 07/02/2021 Abs Lym 1.42 11/19/1999 Abs Pope 0.88 07/02/2021 Abs Eosin 0.23 07/02/2021 Abs Baso <0.03 07/02/2021 Ground glass opacity present on imaging of lung 07/02/2021 10/06/2022 Last Assessment & Plan: Assessment: pending bronchoscopy Bradycardia 11/28/2018 10/06/2022 Visit for monitoring Rituxan therapy 05/25/2017 08/31/2017 Visit for monitoring Rituxan therapy 06/30/2016 09/01/2016 Testalgia, left 10/08/2015 10/27/2017 Cough 05/28/2015 03/22/2016 Psoriasis of scalp 12/26/2013 4 Overview: Dermatology: Dr. Zach Velazquez. 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 10/14/201003/22 Hypersomnia with sleep apnea, unspecified 03/19/2003 10/22/2016 documented as of this encounter (statuses as of 12/29/2022) [facility]05-16-2022 History of Past illness Narrative* Problem Noted Date Diagnosed Date Resolved Date Viral pneumonia 07/06/2021 07/06/2022 Last Assessment & Plan: Assessment: recently tx with atb 4 weeks ago with no improvement, CT revealed viral pneumonia, pending bronchoscopy Anemia 07/06/2021 10/06/2022 Last Assessment & Plan: Assessment: no tx CBC with diff: WBC 10.33 07/02/2021 RBC 3.56 07/02/2021 Hemoglobin 10.7 07/02/2021 Hematocrit 32.5 07/02/2021 MCV 91.3 07/02/2021 MCH 30.1 07/02/2021 MCHC 32.9 07/02/2021 RDW-CV 13.3 07/02/2021 Platelet Count 398 07/02/2021 MPV 10.7 07/02/2021 Neut% 77.8 07/02/2021 Lymph% 10.5 07/02/2021 Pope% 8.5 07/02/2021 Eosin% 7.5 03/16/2021 Baso% 0.2 07/02/2021 Abs Neut (ANC) 8.04 07/02/2021 Abs Lym 1.42 11/19/1999 Abs Pope 0.88 07/02/2021 Abs Eosin 0.23 07/02/2021 Abs Baso <0.03 07/02/2021 Ground glass opacity present on imaging of lung 07/02/2021 10/06/2022 Last Assessment & Plan: Assessment: pending bronchoscopy Bradycardia 11/28/2018 10/06/2022 Visit for monitoring Rituxan therapy 05/25/2017 08/31/2017 Visit for monitoring Rituxan therapy 06/30/2016 09/01/2016 Testalgia, left 10/08/2015 10/27/2017 Cough 05/28/2015 03/22/2016 Psoriasis of scalp 12/26/2013 4 Overview: Dermatology: Dr. Zach Velazquez. 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 10/14/201003/22 Hypersomnia with sleep apnea, unspecified 03/19/2003 10/22/2016 documented as of this encounter (statuses as of 12/30/2022) [facility]05-16-2022 History of Past illness Narrative* Problem Noted Date Diagnosed Date Resolved Date Viral pneumonia 07/06/2021 07/06/2022 Last Assessment & Plan: Assessment: recently tx with atb 4 weeks ago with no improvement, CT revealed viral pneumonia, pending bronchoscopy Anemia 07/06/2021 10/06/2022 Last Assessment & Plan: Assessment: no tx CBC with diff: WBC 10.33 07/02/2021 RBC 3.56 07/02/2021 Hemoglobin 10.7 07/02/2021 Hematocrit 32.5 07/02/2021 MCV 91.3 07/02/2021 MCH 30.1 07/02/2021 MCHC 32.9 07/02/2021 RDW-CV 13.3 07/02/2021 Platelet Count 398 07/02/2021 MPV 10.7 07/02/2021 Neut% 77.8 07/02/2021 Lymph% 10.5 07/02/2021 Pope% 8.5 07/02/2021 Eosin% 7.5 03/16/2021 Baso% 0.2 07/02/2021 Abs Neut (ANC) 8.04 07/02/2021 Abs Lym 1.42 11/19/1999 Abs Pope 0.88 07/02/2021 Abs Eosin 0.23 07/02/2021 Abs Baso <0.03 07/02/2021 Ground glass opacity present on imaging of lung 07/02/2021 10/06/2022 Last Assessment & Plan: Assessment: pending bronchoscopy Bradycardia 11/28/2018 10/06/2022 Visit for monitoring Rituxan therapy 05/25/2017 08/31/2017 Visit for monitoring Rituxan therapy 06/30/2016 09/01/2016 Testalgia, left 10/08/2015 10/27/2017 Cough 05/28/2015 03/22/2016 Psoriasis of scalp 12/26/2013 4 Overview: Dermatology: Dr. Zach Velazquez. 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 10/14/201003/22 Hypersomnia with sleep apnea, unspecified 03/19/2003 10/22/2016 documented as of this encounter (statuses as of 01/17/2023) [facility]05-16-2022 History of Past illness Narrative* Problem Noted Date Diagnosed Date Resolved Date Viral pneumonia 07/06/2021 07/06/2022 Last Assessment & Plan: Assessment: recently tx with atb 4 weeks ago with no improvement, CT revealed viral pneumonia, pending bronchoscopy Anemia 07/06/2021 10/06/2022 Last Assessment & Plan: Assessment: no tx CBC with diff: WBC 10.33 07/02/2021 RBC 3.56 07/02/2021 Hemoglobin 10.7 07/02/2021 Hematocrit 32.5 07/02/2021 MCV 91.3 07/02/2021 MCH 30.1 07/02/2021 MCHC 32.9 07/02/2021 RDW-CV 13.3 07/02/2021 Platelet Count 398 07/02/2021 MPV 10.7 07/02/2021 Neut% 77.8 07/02/2021 Lymph% 10.5 07/02/2021 Pope% 8.5 07/02/2021 Eosin% 7.5 03/16/2021 Baso% 0.2 07/02/2021 Abs Neut (ANC) 8.04 07/02/2021 Abs Lym 1.42 11/19/1999 Abs Pope 0.88 07/02/2021 Abs Eosin 0.23 07/02/2021 Abs Baso <0.03 07/02/2021 Ground glass opacity present on imaging of lung 07/02/2021 10/06/2022 Last Assessment & Plan: Assessment: pending bronchoscopy Bradycardia 11/28/2018 10/06/2022 Visit for monitoring Rituxan therapy 05/25/2017 08/31/2017 Visit for monitoring Rituxan therapy 06/30/2016 09/01/2016 Testalgia, left 10/08/2015 10/27/2017 Cough 05/28/2015 03/22/2016 Psoriasis of scalp 12/26/2013 4 Overview: Dermatology: Dr. Zach Velazquez. 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 10/14/201003/22 Hypersomnia with sleep apnea, unspecified 03/19/2003 10/22/2016 documented as of this encounter (statuses as of 01/24/2023) [facility]05-16-2022 History of Past illness Narrative* Problem Noted Date Diagnosed Date Resolved Date Viral pneumonia 07/06/2021 07/06/2022 Last Assessment & Plan: Assessment: recently tx with atb 4 weeks ago with no improvement, CT revealed viral pneumonia, pending bronchoscopy Anemia 07/06/2021 10/06/2022 Last Assessment & Plan: Assessment: no tx CBC with diff: WBC 10.33 07/02/2021 RBC 3.56 07/02/2021 Hemoglobin 10.7 07/02/2021 Hematocrit 32.5 07/02/2021 MCV 91.3 07/02/2021 MCH 30.1 07/02/2021 MCHC 32.9 07/02/2021 RDW-CV 13.3 07/02/2021 Platelet Count 398 07/02/2021 MPV 10.7 07/02/2021 Neut% 77.8 07/02/2021 Lymph% 10.5 07/02/2021 Pope% 8.5 07/02/2021 Eosin% 7.5 03/16/2021 Baso% 0.2 07/02/2021 Abs Neut (ANC) 8.04 07/02/2021 Abs Lym 1.42 11/19/1999 Abs Pope 0.88 07/02/2021 Abs Eosin 0.23 07/02/2021 Abs Baso <0.03 07/02/2021 Ground glass opacity present on imaging of lung 07/02/2021 10/06/2022 Last Assessment & Plan: Assessment: pending bronchoscopy Bradycardia 11/28/2018 10/06/2022 Visit for monitoring Rituxan therapy 05/25/2017 08/31/2017 Visit for monitoring Rituxan therapy 06/30/2016 09/01/2016 Testalgia, left 10/08/2015 10/27/2017 Cough 05/28/2015 03/22/2016 Psoriasis of scalp 12/26/2013 4 Overview: Dermatology: Dr. Zach Velazquez. 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 10/14/201003/22 Hypersomnia with sleep apnea, unspecified 03/19/2003 10/22/2016 documented as of this encounter (statuses as of 02/03/2023) [facility]05-16-2022 History of Past illness Narrative* Problem Noted Date Diagnosed Date Resolved Date Viral pneumonia 07/06/2021 07/06/2022 Last Assessment & Plan: Assessment: recently tx with atb 4 weeks ago with no improvement, CT revealed viral pneumonia, pending bronchoscopy Anemia 07/06/2021 10/06/2022 Last Assessment & Plan: Assessment: no tx CBC with diff: WBC 10.33 07/02/2021 RBC 3.56 07/02/2021 Hemoglobin 10.7 07/02/2021 Hematocrit 32.5 07/02/2021 MCV 91.3 07/02/2021 MCH 30.1 07/02/2021 MCHC 32.9 07/02/2021 RDW-CV 13.3 07/02/2021 Platelet Count 398 07/02/2021 MPV 10.7 07/02/2021 Neut% 77.8 07/02/2021 Lymph% 10.5 07/02/2021 Pope% 8.5 07/02/2021 Eosin% 7.5 03/16/2021 Baso% 0.2 07/02/2021 Abs Neut (ANC) 8.04 07/02/2021 Abs Lym 1.42 11/19/1999 Abs Pope 0.88 07/02/2021 Abs Eosin 0.23 07/02/2021 Abs Baso <0.03 07/02/2021 Ground glass opacity present on imaging of lung 07/02/2021 10/06/2022 Last Assessment & Plan: Assessment: pending bronchoscopy Bradycardia 11/28/2018 10/06/2022 Visit for monitoring Rituxan therapy 05/25/2017 08/31/2017 Visit for monitoring Rituxan therapy 06/30/2016 09/01/2016 Testalgia, left 10/08/2015 10/27/2017 Cough 05/28/2015 03/22/2016 Psoriasis of scalp 12/26/2013 4 Overview: Dermatology: Dr. Zach Velazquez. 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 10/14/201003/22 Hypersomnia with sleep apnea, unspecified 03/19/2003 10/22/2016 documented as of this encounter (statuses as of 04/04/2023) [facility]05-16-2022 Miscellaneous Notes* Addendum Note - Pancho Le APRN.CNP - 07/06/2021 12:21 PM EDT Addended by: PANCHO LE on: 07/06/2021 12:21 PM Modules accepted: [facility] History and physical note * Pancho Le APRN.CNP - 07/06/2021 8:24 AM EDT HISTORY AND PHYSICAL EXAMINATION SERVICE DATE: 07/06/2021 SERVICE TIME: 8:24 AM PRIMARY CARE PHYSICIAN: Santino Long MD REASON FOR VISIT: Lucinda W Hernandez is a 85 year old male who is scheduled for Procedure(s): BRONCHOSCOPY WITH LAVAGE BRONCHIAL ALVEOLAR (Right) at the request of Dr. Shweta Helms for consultation. My final recommendation will be communicated back to the requesting physician by way ofshared medical record or letter. 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 (Hcc) Long-Term Use of Plaquenil Bradycardia Contact Dermatitis Ground Glass Opacity Present On Imaging of Lung Gerd (Gastroesophageal Reflux Disease) Mild Intermittent Asthma Without Complication Viral Pneumonia Anemia Former Smoker Renetta (Obstructive Sleep Apnea) COVID-19 Immunization Status Overdue - COVID-19 VACCINE (4 - Booster for Moderna series) Overdue since 03/20/2021 12/18/2020 Imm Admin: COVID-19 vaccine, full dose (MODERNA) 04/17/2020 Imm Admin: COVID-19 vaccine (MODERNA) 03/20/2020 Imm Admin: COVID-19 vaccine (MODERNA) CHIEF COMPLAINT: Pre-op exam HPI: KRIS is a 85 yo seen for PAC due to scheduled above surgery because of ground glass opacity on imaging. 07/02/2021 Dr. Shweta Helms HPI: Lucinda Hernandez 85 year old male former remote smoker with PMH siginificant for long standing seropositive RA, RENETTA, HTN, history of childhood asthma with recent cough and abnormal chest CT, treated for pneumonia. RA treated with Plaquenil and rituximab. Rituximab currently on hold. Had been on rituximab therapy for over 10 years, last dose in January. Approximately 4 weeks ago developed a cough, fatigue and chest congestion. No chills, chest pain. Low grade temp of 100 degrees for 5 days. Seen in Urgent Care, CXR with infiltrate and possible lung nodule, treated with Augmentin and doxycycline. Repeat visit to Urgent Care one week later due to lack of improvement in symptoms. No leukocytosis on CBC. Follow-up with PCP, cough and chest congestion improved with antibiotics but now having intermittent shortness of breath, feeling like he is unable to take a deep breath with main complaint of persistent extreme fatigue. Chest CT shows bilateral mainly upper lobe patchy groundglass infi ltrates consistent with viral pneumonia. Home COVID test negative. Denies any recent exposures or ill contacts. Has a history of asthma as a child not requiring long-term therapy. With recent illness, he denied any wheezing. No recent pulmonary function testing. REVIEW OF SYSTEMS: General: Positive for: weight loss >10% of BW in last 6 months. Neurological: No history of TIA's, stroke, SHOP STEWARD tumor, impaired sensorium, hemiplegia, paraplegia orquadraplegia. No neurological symptoms or problems. Respiratory: +former smoker 0.5ppd/6 years +SEE HPI Positive for: asthma (no longer using inhaler, rarely used) and pneumonia within 6 weeks (viral). Negative for: COPD, tobacco use and URI < 2 weeks. Cardiovascular: Positive for: hypertension (on rx) Negative for: angina, anticoagulation therapy, arrhythmia, atrial fibrillation, CAD, chest pain, CHF, congenital heart defect, DVT/PE, hyperlipidemia, recent [place], murmur/valvular heart disease, open heart surgery and valve surgery. GI: +blood in stool, pending colonoscopy Positive for: GERD (on rx) Negative for: abdominal pain, dysphagia, hepatitis, irritable bowel syndrome, inflammatory bowel disease, liver disease, nausea, pancreatitis, vomiting and ETOH >2 drinks/day. : No history of dysuria, frequency or incontinence, stones or chronic kidney disease. No difficulty urinating, nocturia > 1 time per night or hematuria. Endocrine: No history of diabetes. Has not taken steroids within the past 30 days. No history of endocrinological symptoms or problems. Hematology: Positive for: anemia and bruises/bleeds easily. Negative for: transfusion of at least 4 units within 72 hours prior to surgery and chronic anti-coagulation/platelet meds. Oncology: No history of CA metastasis, chemo within 30 days, or radiotherapy within 90 days. No history of oncological symptoms or problems. Psych: No history of psychiatric symptoms or problems. Musculoskeletal: Negative for joint pain or swelling, back pain or muscle pain. Skin: Negative for lesions, rash and itching. 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 Denise Gama. Synvisc injections. HYPERSOMNI W SLEEP APNEA 03/19/2003 HYPERTENSION NOS 06/15/2005 Rheumatoid arthritis involving multiple sites with positive rheumatoid factor (HCC) 01/29/2015 CCP +, RF +, erosive. Early Rx in 2002: SSZ and plaquenil. Progression of dz 06/2010- tried Enbrel x~ 1 months (rash - stopped). RTX 01/2011, 08/2011, 03/2012, 11/2012, 06/2013, 01/2014, 07/2014, 01/2015, 08/2015, 03/2016 PAST SURGICAL HISTORY Procedure Laterality Date ARTHRP KNE CONDYLE&PLATU MEDIAL&LAT COMPARTMENTS 2011 Bilateral COLONOSCOPY 08/09/2012 COLONOSCOPY FLX DX W/COLLJ SPEC WHEN PFRMD 05/18/2005 PAST SURGICAL HISTORY OF Left 01/06/2001 Inguinal hernia x 2 PAST SURGICAL HISTORY OF 04/04/2003 Right foot surgery PAST SURGICAL HISTORY OF 06/23/2017 Right cataract surgery PAST SURGICAL HISTORY OF 07/04/2017 Left cataract surgery UVULECTOMY EXCISION UVULA 1988 [facility], Dr. Temple FAMILY HISTORY Problem Relation Age of Onset Diabetes Mother Coronary Artery Disease Mother [place] at age 82 Ischemic Heart Disease Father at age 66 other (pituitary tumor) Brother other (Other) Brother aspiration pneumonia Coronary Artery Disease Brother Hypertension Brother Social History Tobacco Use Smoking status: Former Smoker Types: Cigarettes Quit date: 03/19/1963 Years since quittin.3 Smokeless tobacco: Never Used Tobacco comment: 1 ppd Vaping Use Vaping Use: Never used Substance Use Topics Alcohol use: Yes Alcohol/week: 35.0 standard drinks Types: 14 Glasses of Wine (5oz) per week Drug use: No Prior to Admission medications as of 07/06/21 0824 Medication Sig Last Dose Taking naproxen (NAPROSYN) 250 mg tablet Take 250 mg by mouth once daily. Taking Yes pantoprazole DR (PROTONIX) 40 mg tablet Take 1 tablet by mouth once daily. Taking Yes amLODIPine (NORVASC) 10 mg tablet Take 1 tablet by mouth once daily. Taking Yes lisinopril (ZESTRIL, PRINIVIL) 40 mg tablet Take 1 tablet by mouth once daily. Taking Yes albuterol HFA (VENTOLIN HFA) 90 mcg/actuation inhaler Inhale 2 Puffs as instructed every 4 hours asneeded for wheezing/shortness of breath. Taking Yes mometasone (ELOCON) 0.1 % cream Apply 1 application to affected area once daily as needed. Taking Yes abatacept (ORENCIA) 125 mg/mL Inject 125mg (1 syringe) subcutaneously one time a week. Patient not taking: Reported on 06/02/2021 Not Taking No medication comments found. ALLERGIES Allergen Reactions Enbrel [Etanercept] Rash Objective PHYSICAL EXAM: General: alert and oriented (x3) and healthy appearance. Pertinent negatives noted - not distressed. Skin: +healing ecchymosis to bilateral UE. HEENT: EOM intact and pupils equal round. Pertinent negatives noted - no carotid bruit. Cardiovascular: regular rate and rhythm, normal S1 and S2, no rub, murmurs, or gallop. Respiratory: normal breath sounds, no wheezes or crackles. No chest wall deformity or tenderness. Abdomen: soft. Pertinent negatives noted - not tender. Extremities: no deformity, no edema or tenderness, no joint swelling or clubbing. Neurological: normal cognition and motor skills. Gait normal. No weakness or sensory deficit. PAIN ASSESSMENT: Pain Pain Level: 7 Pain Location: Chest (lungs) Description: Other: See comment ( shortness of breath pain ) Duration Amount of Time: 1 Duration Units: Months Frequency: Continuous VITALS: BP 112/58 Pulse 72 Temp (Src) 97.5 (Temporal) Resp 16 Ht 6' 2 (1.88m) Wt 180 lb (81.6kg) SpO2 98% BMI 23.10 kg/(m^2). Diagnostic tests reviewed for today's visit: Lab Value Units Date High Low HB 10.7 g/dL 07/02/2021 17.0 13.0 HB 13.0 g/dL 03/16/2021 17.0 13.0 HCT 32.5 % 07/02/2021 51.0 39.0 HCT 39.0 % 03/16/2021 51.0 39.0 WBC 10.33 k/uL 07/02/2021 11.00 3.70 WBC 7.05 k/uL 03/16/2021 11.00 3.70 PLT 398 k/uL 07/02/2021 400 150 PLT 207 k/uL 03/16/2021 400 150 NA 136 mmol/L 07/02/2021 144 136 NA 140 mmol/L 03/16/2021 144 136 K 4.8 mmol/L 07/02/2021 5.1 3.7 K 4.2 mmol/L 03/16/2021 5.1 3.7 GLUC 90 mg/dL 07/02/2021 99 74 GLUC 115 mg/dL 03/16/2021 99 74 BUN 25 mg/dL 07/02/2021 24 9 BUN 25 mg/dL 03/16/2021 24 9 CREAT 1.28 mg/dL 07/02/2021 1.22 0.73 CREAT 1.01 mg/dL 03/16/2021 1.22 0.73 PTSEC No results within date range. INR No results within date range. APTT No results within date range. ALT 17 U/L 07/02/2021 54 10 ALT 15 U/L 03/16/2021 54 10 AST 24 U/L 07/02/2021 40 14 AST 25 U/L 03/16/2021 40 14 TBILI 0.3 mg/dL 07/02/2021 1.3 0.2 TBILI 0.3 mg/dL 03/16/2021 1.3 0.2 TSH No results within date range. Lab Value Units Date High Low HCGQT No results within date range. UHCG No results within date range. HCG, BODY* No results within date range. Lab Value Units Date High Low ABORHD No results within date range. ABSCREEN No results within date range. No results found for: HBA1C Recent Results (from the past 8760 hour(s)) ECG COMPLETE Collection Time: 11/17/20 9:03 AM Result Value Ventricular Rate 63 Atrial Rate 63 P-R Interval 152 QRS Duration 100 QT Interval 368 QTC Calculation (Bazett) 376 Calculated P [place] 90 Calculated R [place] 20 Calculated T [place] 67 Impression NORMAL SINUS RHYTHM NORMAL ECG Confirmed by MARIO COTO M.D. ([id number]) on 11/24/2020 12:17:21 PM No results found for this or any previous visit (from the past 83323 hour(s)). Assessment Rheumatoid arthritis involving multiple sites with positive rheumatoid factor (HCC) Assessment: currently taking no rx, following [facility] rheumatology Benign prostatic hyperplasia without lower urinary tract symptoms Assessment: h/o no tx per pt Essential hypertension Assessment: controlled on rx Last 14 BP Last 14 Encounter BP Readings: Date: BP: 07/06/2021 112/58 07/02/2021 102/58 06/12/2021 146/68 06/09/2021 112/60 06/02/2021 130/68 05/29/2021 126/64 05/07/2021 154/68 04/28/2021 159/67 02/17/2021 128/62 01/27/2021 150/64 01/16/2021 194/80[manual[ 01/16/2021 170/70 12/30/2020 157/60 12/04/2020 140/74 GERD (gastroesophageal reflux disease) Assessment: controlled on rx Ground glass opacity present on imaging of lung Assessment: pending bronchoscopy Mild intermittent asthma without complication Assessment: use to use albuterol as needed, rarely used and no longer has rx Viral pneumonia Assessment: recently tx with atb 4 weeks ago with no improvement, CT revealed viral pneumonia, pending bronchoscopy Anemia Assessment: no tx CBC with diff: WBC 10.33 07/02/2021 RBC 3.56 07/02/2021 Hemoglobin 10.7 07/02/2021 Hematocrit 32.5 07/02/2021 MCV 91.3 07/02/2021 MCH 30.1 07/02/2021 MCHC 32.9 07/02/2021 RDW-CV 13.3 07/02/2021 Platelet Count 398 07/02/2021 MPV 10.7 07/02/2021 Neut% 77.8 07/02/2021 Lymph% 10.5 07/02/2021 Pope% 8.5 07/02/2021 Eosin% 7.5 03/16/2021 Baso% 0.2 07/02/2021 Abs Neut (ANC) 8.04 07/02/2021 Abs Lym 1.42 11/19/1999 Abs Pope 0.88 07/02/2021 Abs Eosin 0.23 07/02/2021 Abs Baso <0.03 07/02/2021 Former smoker Assessment: 0.5ppd/6 years RENETTA (obstructive sleep apnea) Assessment: s/p uvulectomy METS: Climb a flight of stairs or walk up a hill (5.50 METs) DASI Score: 5.5; Patient denies any chest pain or undue shortness of breath with the above physicalactivity. Clinical Frailty Scale: 3. Well, with treated comorbid disease ASA Class: 3 ANESTHESIA FINDINGS: Intubation History: No history of difficult intubation Significant Anesthesia Considerations: none Airway History: No history of difficult airway [id number] Score: Age: >=75 Sex: Male CHF history: No Hypertension history: Yes Stroke/TIA/thromboembolism history: No Vascular disease history: No Diabetes history: No Score: 3 I - PHYSICAL EVALUATION AIRWAY Tracheostomy tube not present Mallampati: II. TM distance: >3 FB. Neck ROM: full ROM without neurological symptoms. Mouth opening: adequate. Short neck: no. Thick neck: no Additional comments: S/p uvulectomy . DENTAL Dental findings: teeth intact. II - ANESTHESIA PLAN ASA Score: 3 Anesthetic Plan: other Anesthetic plan additional comments: *PACC/TCI - anesthesia choice. Informed Consent Anesthetic risks, benefits, alternatives, personnel and consent discussed: yes. Patient / Responsible Republican agrees to proceed: yes Patient / Surrogate agrees to blood products: blood products not planned Prepared for Surgery: optimally prepared for surgery. CONSULTS: Patient does not require consults for optimization at this time The Following Tests/Procedures Have Been Initiated: Orders Placed This Encounter naproxen (NAPROSYN) 250 mg tablet Sig: Take 250 mg by mouth once daily. Planned Anesthetic: other anesthesia choice Instructions Given to Patient: Instructions located in the after visit summary. Patient given verbal and written preop instructions and voices comprehension and compliance. SIGNATURE: Pancho Le APRN.CNP PATIENT NAME: Lucinda Hernandez DATE: July 06, 2021 TIME: 8:24 AM PAGER/CONTACT #: documented in [facility] Instructions* Patient Instructions* Pancho Le APRN.CNP - 07/06/2021 8:23 AM EDT PATIENT PREOPERATIVE INSTRUCTIONS Shweta Helms MD has scheduled you for your procedure at this surgery center: [facility]: [phone] -- [address] [place] [address]. Please read below carefully for your personalized instructions. Dietary Restrictions: - No solid food after midnight. - You may have 12 ounces of clear liquids (water, clear juices such as apple juice or gatorade, carbonated beverages, clear tea, black coffee, jello) until 2 hours before scheduled arrival at facility. No red/purple coloring and no creamer/sugar Medications: Unless instructed differently below, stay on all of your medications until your surgery. Approved medications to take the morning of surgery with a sip of water: Albuterol, Amlodipine, Pantoprazole If you take any medications for erectile dysfunction-Cialis (Tadalafil), Levitra, Staxyn (Vardenafil) Viagra (Sildenenafil please do not take these for 48 hours before surgery. If you start any new medications after today's visit, please contact the surgeon's office. Blood Thinning Medications: - Stop NSAIDS (Ibuprofen, Advil, Aleve, Motrin, Celebrex, Mobic, etc.) 7 days before surgery, as directed by your surgeon. - Stop Aspirin 7 days before surgery, as directed by your surgeon. - Stop Vitamin E, ALL multi-vitamins, herbals and dietary supplements 7 days before surgery. - You may take Tylenol (Acetaminophen) or any of your pain medications that do not contain aspirin or NSAIDS as needed. Important Reminders: - If you use CPAP/BIPAP, bring the machine with you to the surgery center. - If you are prescribed inhalers for breathing, continue using them. - Candy, mints, and tobacco products are NOT permitted the morning of surgery. - Hearing aids, dentures and glasses may be worn the morning of surgery. - NO jewelry, body piercings, makeup, hairpins or contacts are to be worn the day of surgery. If you develop symptoms such as a fever, cold, or flu, or have other changes to your health within TWO DAYS of scheduled surgery or the morning of surgery, please contact the surgery center above. Personal Belongings: -Please have photo ID and insurance cards. -If you do not have a copy of advance directives on file with us, please bring a copy with you on the day of surgery. - Leave ALL valuables and money at home or with family members. For Outpatient Procedures: - YOU MUST HAVE A RESPONSIBLE PHOTOENGRAVING PHOTOGRAPHER TAKE YOU HOME. A KNITTER MACHINE OR DRIVABILITY TECHNICIAN CANNOT BE MADE A RESPONSIBLE PHOTOENGRAVING PHOTOGRAPHER. - We recommend that a responsible person stays with you overnight to take care of you. - You cannot stay in a hotel alone after outpatient surgery. You will not be permitted to have yoursurgery, if you do not have someone to take care of you. Arrival Time for Surgery: - The Surgery Center or hospital where you are having surgery will call the afternoon before surgery (or Tuesday for Tuesday surgery) with a scheduled arrival time. - If you have not heard by 4 pm, please contact the surgery center above. Please be aware that emergency situations arise, which may delay or change your surgical time. If this happens, we will notify you as soon as possible and regret any inconvenience. If you already have an Advance Directive, please fax a copy to [phone] or email to for it to be added to your chart. If you do not have an Advance Directive, you can find the appropriate form and more information at [email or web address]. We recommend that youcomplete the Advance Directive form found on the website and bring it with you the day of your surgery. It can be witnessed and scanned into your chart that day. Pancho Le APRN.DANIEL documented in this encounterMer[facility]05[facility]22 History of Present illness Narrative* Shweta Helms MD - 07/02/2021 8:45 AM EDT Images from the original note were not included. . [facility] [place] Note Patient name: Lucinda Hernandez PCP: Santino Long MD Referring Physician: same Consultation requested by Dr. Long for an opinion regarding abnormal chest CT. My final recommendations will be communicated back to the requesting physician by way of shared Medical record or letter to requesting physician via US mail. CC: Abnormal chest CT HPI: Lucinda Hernandez 85 year old male former remote smoker with PMH siginificant for long standing seropositive RA, RENETTA, HTN, history of childhood asthma with recent cough and abnormal chest CT, treated for pneumonia. RA treated with Plaquenil and rituximab. Rituximab currently on hold. Had been on rituximab therapy for over 10 years, last dose in January. Approximately 4 weeks ago developed a cough, fatigue and chest congestion. No chills, chest pain. Low grade temp of 100 degrees for 5 days. Seen in Urgent Care, CXR with infiltrate and possible lung nodule, treated with Augmentin and doxycycline. Repeat visit to Urgent Care one week later due to lack of improvement in symptoms. No leukocytosis on CBC. Follow-up with PCP, cough and chest congestion improved with antibiotics but now having intermittent shortness of breath, feeling like he is unable to take a deep breath with main complaint of persistent extreme fatigue. Chest CT shows bilateral mainly upper lobe patchy groundglass infi ltrates consistent with viral pneumonia. Home COVID test negative. Denies any recent exposures or ill contacts. Has a history of asthma as a child not requiring long-term therapy. With recent illness, he denied any wheezing. No recent pulmonary function testing. DATA: Labs: Component Ref Range & Units 3 wk ago (06/09/21) WBC 3.70 - 11.00 k/uL 9.45 RBC 4.20 - 6.00 m/uL 3.71 Low Hemoglobin 13.0 - 17.0 g/dL 11.7 Low Hematocrit 39.0 - 51.0 % 34.3 Low MCV 80.0 - 100.0 fL 92.5 MCH 26.0 - 34.0 pg 31.5 MCHC 30.5 - 36.0 g/dL 34.1 RDW-CV 11.5 - 15.0 % 12.4 Platelet Count 150 - 400 k/uL 384 MPV 9.0 - 12.7 fL 10.7 Neut% % 84.3 Abs Neut 1.45 - 7.50 k/uL 7.96 High Lymph% % 5.6 Abs Lymph 1.00 - 4.00 k/uL 0.53 Low Pope% % 7.8 Abs Pope <0.87 k/uL 0.74 Eosin% % 1.2 Abs Eosin <0.46 k/uL 0.11 Baso% % 0.3 Abs Baso <0.11 k/uL 0.03 Immature Gran % % 0.8 Abs Immature Gran <0.10 k/uL 0.08 NRBC /100 WBC 0.0 Absolute nRBC <0.01 k/uL <0.01 Diff Type Auto Review of previous laboratory testing shows intermittent eosinophilia Imaging / Diagnostic Studies: DATE OF EXAM: Jun 30 2021 8:15AM [id number] - CT CHEST WO IVCON / PROCEDURE REASON: Lung nodules EXAMINATION: CHEST CT WITHOUT CONTRAST CLINICAL HISTORY: Lung nodules Comparison: The study is correlated with patient's chest x-ray on 06/02/2021. RESULT: Limitations: None. Lines, tubes, and devices: None. Lung parenchyma and airways: The central airways are patent. The bilateral lungs are remarkable formultiple groundglass opacities, slightly perihilar prominence. Foci of consolidations seen in the right upper lung. No solid mass identified. There are atelectatic changes in the medial right lower lobe. Pleural space: No pleural effusion or pneumothorax. No pleural thickening. Lower neck, lymph nodes, and mediastinum: The imaged thyroid gland is normal. No lymphadenopathy inthe supraclavicular, axillary, mediastinal, or hilar regions, although a few subcentimeter in shortI is mediastinal lymph nodes are visualized. Heart, pericardium, and thoracic vessels: The thoracic aorta and main pulmonary artery are normal in caliber. The cardiac chambers are normal in size. No punctate coronary artery atherosclerotic calcifications are noted, although the study is not optimized for coronary assessment. No pericardial effusion or thickening. Bones and soft tissues: The spine shows the degenerative changes with multilevel disc space narrowing. No destructive bone lesion. Left greater than right bilateral gynecomastia is noted. Upper abdomen: Limited study through the upper abdomen demonstrates no substantial abnormalities. IMPRESSION: Multiple groundglass opacities in the bilateral lungs with foci of consolidation in the right upperlobe. The findings are nonspecific in etiology. The top differential consideration includes inflammatory/infectious process such as virus pneumonia, hypersensitivity pneumonitis, pulmonary alveolar proteinosis, eosinophilic pneumonia, etc. Clinical correlation is suggested. 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 Denise Gama. Synvisc injections. HYPERSOMNI W SLEEP APNEA 03/19/2003 HYPERTENSION NOS 06/15/2005 Rheumatoid arthritis involving multiple sites with positive rheumatoid factor (HCC) 01/29/2015 CCP +, RF +, erosive. Early Rx in 2002: SSZ and plaquenil. Progression of dz 06/2010- tried Enbrel x~ 1 months (rash - stopped). RTX 01/2011, 08/2011, 03/2012, 11/2012, 06/2013, 01/2014, 07/2014, 01/2015, 08/2015, 03/2016 ALLERGIES Allergen Reactions Enbrel [Etanercept] Rash pantoprazole DR (PROTONIX) 40 mg tablet Take 1 tablet by mouth once daily. amLODIPine (NORVASC) 10 mg tablet Take 1 tablet by mouth once daily. hydrOXYchloroQUINE (PLAQUENIL) 200 mg tablet Take 1 tablet by mouth twice daily. lisinopril (ZESTRIL, PRINIVIL) 40 mg tablet Take 1 tablet by mouth once daily. albuterol HFA (VENTOLIN HFA) 90 mcg/actuation inhaler Inhale 2 Puffs as instructed every 4 hours asneeded for wheezing/shortness of breath. abatacept (ORENCIA) 125 mg/mL Inject 125mg (1 syringe) subcutaneously one time a week. mometasone (ELOCON) 0.1 % cream Apply 1 application to affected area once daily as needed. 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 Pets: None FAMILY HISTORY Problem Relation Age of Onset Diabetes Mother Coronary Artery Disease Mother [place] at age 82 Ischemic Heart Disease Father at age 66 other (pituitary tumor) Brother other (Other) Brother aspiration pneumonia Coronary Artery Disease Brother Hypertension Brother PAST SURGICAL HISTORY Procedure Laterality Date ARTHRP KNE CONDYLE&PLATU MEDIAL&LAT COMPARTMENTS 2011 Bilateral COLONOSCOPY 08/09/2012 COLONOSCOPY FLX DX W/COLLJ SPEC WHEN PFRMD 05/18/2005 PAST SURGICAL HISTORY OF Left 01/06/2001 Inguinal hernia x 2 PAST SURGICAL HISTORY OF 04/04/2003 Right foot surgery PAST SURGICAL HISTORY OF 06/23/2017 Right cataract surgery PAST SURGICAL HISTORY OF 07/04/2017 Left cataract surgery UVULECTOMY EXCISION UVULA 1987 [facility], Dr. Temple [facility], Social history, family history and surgical history reviewed and updated in EMR REVIEW OF SYSTEMS: CONSTITUTIONAL: No current fevers, chills, nightsweats, unintended weight loss. Positive fatigue HEENT: Denies nasal congestion/sinus symptoms, current allergy problems. EYES: No diplopia or blurry vision. CARDIOVASCULAR: No chest pain, palpitations, orthopnea, PND, edema. PULM: See HPI GI: No dysphagia/odynophagia, problematic reflux, constipation, diarrhea, changes in stool habits. : No urinary complaints, including dysuria, gross hematuria NEURO: No new balance problems, peripheral weakness/paresthesias or numbness of concern. MUSC-SKEL: No new joint pain, swelling, or erythema. PSY: No concerns regarding depression, anxiety INTEGUMENTARY: No new skin changes, rashes, subcutaneous nodules PHYSICAL EXAMINATION: BP 102/58 Pulse 65 Resp 17 Wt 178 lb (80.7kg) SpO2 95% General Appearance: Frail elderly gentleman no acute distress Skin: Skin color, texture, turgor normal, no suspicious rashes or lesions. Ecchymoses Head: Normocephalic, no masses, lesions, tenderness or abnormalities. Eyes: Sclera, conjunctiva normal Oropharynx: Adequate dentition, UPPP Neck: No JVD, no masses Chest wall: Mild kyphosis Lungs: Not labored, normal to percussion, bibasilar crackles Heart: Regular rate and rhythm, no murmur Extremities: No edema, no clubbing Musculoskeletal: Arthritic changes, no active synovitis Neurologic: Alert and oriented, no focal fine Lymph Nodes: No cervical lymphadenopathy and No supraclavicular lymphadenopathy. Assessment/Plan: 1. Groundglass opacity on chest imaging -Findings on chest CT most consistent with inflammatory or infectious etiology. Major differential diagnosis includes rheumatoid lung/early ILD versus infection due to relative immunosuppression. Findings on CT most consistent with viral pneumonia -Viral respiratory panel pending -ANCA pending, ordered CRP, quantitative immunoglobulins, eosinophil count -Bronchoscopy with BAL 2. Rheumatoid arthritis, seropositive, multi articular -Current treatment plan per rheumatology Shweta Helms MD [facility] [place] documented in [facility] encounter[facility] Miscellaneous Notes* Telephone Encounter - Irina De Los Santos - 07/01/2021 3:47 PM EDT patient scheduled. * Telephone Encounter - Liliana Patel APRN.CNP - 07/01/2021 2:54 PM EDT Please call patient to arrange appointment with general surgery, gastroenterology is scheduling toofar out and patient needs to be seen sooner Liliana Patel APRN.CNP documented in this encounterMer[facility]05-11-2022 History of Present illness Narrative* Maritza Bal MD - 07/01/2021 2:21 PM EDT [facility] [place] Department of Rheumatic and Immunologic Diseases Established patient: RA CC: Pain in B/l Wrists This visit was done virtually due to COVID 19 pandemic Background history: Lucinda Hernandez is a 85 year old year-old male with PMH notable for seropositive erosive (CCP, RF) RA,OA, and BPH who presents to Rheumatology Clinic for evaluation of pain in B/l wrists. He states that he has had RA for about 15 years and was first started on oral medications. 12 years ago he was started on Rituximab. He has not had any reactions to the infusion and says he gets about 4 months of relief after the infusion. He was recently diagnosed with Pneumonia and was put on antibiotics. He says he is improving. He has stopped taking his Sulfasalazine because the pharmacy has been out of stock and was told to increase his Plaquenil dose by 1/2 a tablet. He says this has been going well so far. Treatment history of RA Early Rx in 2002: SSZ and plaquenil. Progression of dz 06/2010- tried Enbrel x ~ 1 months (rash -stopped). RTX 1g x2: 01/2011, 08/2011, 03/2012, 11/2012, 06/2013, 01/2014, 07/2014, 01/2015, 08/2015, 03/2016, 08/2016, 08/2017 RTX 1g x1: 02/2017 Last infusions on 06/11, 06/2020 1 g each On HCQ 300 mg - last OCT exam was done locally and was normal - last one was scanned in our documment was in 04/2019 Off of SSZ Takes naproxen every day Interval history July 01, 2021 Chest congestion, SOB, fever one day fever - started a month ago (06/02) He had home COVID test which was neg No hemoptysis Finished 10 days of antibiotics Shortness of breath and fatigue didn't improve - has to stop every 10 minutes No leg swelling He didn't start Orencia - it was approved Not too much of joint pain No divericultitis in the past Last RTX 1000 mg in 01/27/2021 Right wrist pain. closer to evening. - US in 04/2021 showed minimal active synovitis No prolonged stiffness back on naproxen twice a day Uses voltaren gel Received COVID booster and 2 evusheld shots No recent infection or illness Creatinine was checked earlier this month and was slightly elevated Review of Systems: Answers for HPI/ROS submitted by the patient on 07/01/2021 Fever : No Recent Unintentional Weight Change: No Eye Pain: No Eye Redness: No Vision Disturbance: No Eye Dryness: No Nose Bleeds: No Sores in your Mouth: No Trouble Swallowing: No Dry Mouth: No Chest Pain: Yes Leg Swelling: No A Cough: Yes Blood when you Cough: No Shortness of Breath: Yes Pain with Breathing: Yes Heartburn: No Abdominal Pain: No Diarrhea: No Black Tarry Stools: No Blood in Urine: No Pain or Burning with Urination: No Joint Pain or Stiffness: No Muscle Weakness: Yes Muscle Aches: No Joint Swelling: No Morning Stiffness in Joints: No A Rash: No Skin Color Changes: No Hair Loss: No Nail Changes: No Headaches: No Numbness: No Memory Loss: No Swollen Glands: No Otherwise, a 12 point ROS was obtained and was negative. 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 Denise Gama. Synvisc injections. HYPERSOMNI W SLEEP APNEA 03/19/2003 HYPERTENSION NOS 06/15/2005 Rheumatoid arthritis involving multiple sites with positive rheumatoid factor (HCC) 01/29/2015 CCP +, RF +, erosive. Early Rx in 2002: SSZ and plaquenil. Progression of dz 06/2010- tried Enbrel x~ 1 months (rash - stopped). RTX 01/2011, 08/2011, 03/2012, 11/2012, 06/2013, 01/2014, 07/2014, 01/2015, 08/2015, 03/2016 Rheumatoid arthritis(714.0) PAST SURGICAL HISTORY Procedure Laterality Date ARTHRP KNE CONDYLE&PLATU MEDIAL&LAT COMPARTMENTS 2011 Bilateral COLONOSCOPY 08/09/2012 COLONOSCOPY FLX DX W/COLLJ SPEC WHEN PFRMD 05/18/2005 PAST SURGICAL HISTORY OF Left 01/06/2001 Inguinal hernia x 2 PAST SURGICAL HISTORY OF 04/04/2003 Right foot surgery PAST SURGICAL HISTORY OF 06/23/2017 Right cataract surgery PAST SURGICAL HISTORY OF 07/04/2017 Left cataract surgery UVULECTOMY EXCISION UVULA 1987 [facility], Dr. Temple FAMILY HISTORY Problem Relation Age of Onset Diabetes Mother Coronary Artery Disease Mother [place] at age 82 Ischemic Heart Disease Father at age 66 other (pituitary tumor) Brother other (Other) Brother aspiration pneumonia Coronary Artery Disease Brother Hypertension Brother Social History Tobacco Use Smoking status: Former Smoker Quit date: 03/19/1963 Years since quittin.3 Smokeless tobacco: Never Used Substance Use Topics Alcohol use: Yes Alcohol/week: 35.0 standard drinks Types: 14 Glasses of Wine (5oz) per week Drug use: No MEDICATIONS: pantoprazole DR (PROTONIX) 40 mg tablet Take 1 tablet by mouth once daily. abatacept (ORENCIA) 125 mg/mL Inject 125mg (1 syringe) subcutaneously one time a week. amLODIPine (NORVASC) 10 mg tablet Take 1 tablet by mouth once daily. hydrOXYchloroQUINE (PLAQUENIL) 200 mg tablet Take 1 tablet by mouth twice daily. lisinopril (ZESTRIL, PRINIVIL) 40 mg tablet Take 1 tablet by mouth once daily. albuterol HFA (VENTOLIN HFA) 90 mcg/actuation inhaler Inhale 2 Puffs as instructed every 4 hours asneeded for wheezing/shortness of breath. mometasone (ELOCON) 0.1 % cream Apply 1 application to affected area once daily as needed. ALLERGIES Allergen Reactions Enbrel [Etanercept] Rash Physical Examination: Vitals: There were no vitals taken for this visit. GEN: awake, alert, well-appearing PULM: on RA. No acute distress. No cough NEURO: no facial asymmetry SKIN: no facial asymmetry ASSESSMENT: This visit was done virtually mikaela due to COVID 19 pandemic Lucinda Hernandez is a 85 year old year-old male with PMH notable for seropositive erosive (CCP, RF) RA,OA, and BPH who presents to [facility]umatology Clinic for evaluation of pain in B/l wrists. He states that he has had RA for about 15 years and was first started on oral medications. 12 years ago he was started on Rituximab. He has not had any reactions to the infusion and says he gets about 4 months of relief after the infusion. Main complaint is right wrist pain which could be multifactorial ( chronic damage, OA changes in addition to possible low to mild active RA based on exam given new data from different study about increase risk for serious COVID infection in pts on RTX - I am in favor of changing therapy - US done in 04/2021 that showed minimal active synovitis in wrists and PIPs level We discussed about changing therapy to orencia (he had a high copay) he had allergic reaction to enbrel CT scan showed multifocal GGO -dx infection, organizing pneumonia, fluid overload, RA related lung disease We will order some labs ANCA, UA and he is going to see pulmonary tomorrow (echo, bronchoscopy, PFTs?) After his visit we will decide about his future RA treatment (RTX vs Abatecept) Recommend to decrease naproxen to once a day Continue Plaquenil 2 tablets a day - his OCT exam was normal He is vaccinated for COVID with booster - DXA Axial Skeleton at next visit I spent a total of 25 minutes on the date of the service which included preparing to see the patient, [id number] patient care, completing clinical documentation, obtaining and/or reviewing separately obtained history, performing a medically appropriate examination, counseling and educating the pat ient/family/caregiver and ordering medications, tests, or procedures. Maritza Bal MD Rheumatology staff July 01, 2021 documented in this encounter[facility] Miscellaneous Notes* Telephone Encounter - Veena Martin - 07/01/2021 9:47 AM EDT Contacted patient scheduled appointment with EB on 07/02 Veena Veronica PSS * Telephone Encounter - Liliana Patel APRN.CNP - 07/01/2021 8:36 AM EDT Please call patient to schedule appointment with pulmonology Liliana Patel APRN.CNP documented in this encounterMer[facility]05-10-2022 History of Present illness Narrative* RT Rodri(R) - 06/30/2021 8:00 AM EDT Radiology Service Progress Note PATIENT NAME: Lucinda Hernandez DATE OF SERVICE: June 30, 2021 TIME: 12:13 PM PATIENT IDENTITY VERIFICATION COMPLETED USING TWO (2) IDENTIFIERS: Name and Date of confirmedby patient verbally. FALL SCREENING: Has the patient had 2 falls in the last year or 1 fall with injury or currently using an Ambulatory Assistive Device (Walker, Cane, Wheelchair, Crutches, etc.)? No PATIENT GENDER DATA: Male PATIENT RELEVANT IMPLANT DATA REVIEWED: Not Applicable RADIOLOGY DEPARTMENT: CT; Exam(s) Completed: Chest PERIPHERAL IV DATA: Not applicable SIGNED BY: RT Batsheva(R) June 30, 2021 12:13 PM documented in this encounterMer[facility]04-22-2022 History of Present illness Narrative* Liliana Patel APRN.CNP - 06/12/2021 9:16 AM EDT CC: Patient presents with: follow up chest congestion HPI Lucinda Hernandez is a 85 year old male who presents today for above. Patient was initially seen in urgent care on 06/02 cough and chest congestion x 2 weeks. Chest x-rayshowed possible pneumonia right lung, treated with Doxycycline and Augmentin. He returned to urgentcare on 06/09 due to no improvement in symptoms. Labs were completed and he was scheduled to follow-up today. There was also an incidental finding on chest x-ray of new lung nodule, CT chest in 4 weeks was recommended. Today patient reports he is feeling better. Cough has almost completely resolved and no long SOB. Fatigue slowly improving. Appetite is still down and he has lost a little bit of weight but is eating3 meals a day and drinking Boost. Denies fever, chills, wheezing, SOB, chest pain, palpitations, hemoptysis, edema, diarrhea, nausea, vomiting. 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 Denise Gama. Synvisc injections. HYPERSOMNI W SLEEP APNEA 03/19/2003 HYPERTENSION NOS 06/15/2005 Rheumatoid arthritis involving multiple sites with positive rheumatoid factor (HCC) 01/29/2015 CCP +, RF +, erosive. Early Rx in 2002: SSZ and plaquenil. Progression of dz 06/2010- tried Enbrel x~ 1 months (rash - stopped). RTX 01/2011, 08/2011, 03/2012, 11/2012, 06/2013, 01/2014, 07/2014, 01/2015, 08/2015, 03/2016 Rheumatoid arthritis(714.0) PAST SURGICAL HISTORY Procedure Laterality Date ARTHRP KNE CONDYLE&PLATU MEDIAL&LAT COMPARTMENTS 2011 Bilateral COLONOSCOPY 08/09/2012 COLONOSCOPY FLX DX W/COLLJ SPEC WHEN PFRMD 05/18/2005 PAST SURGICAL HISTORY OF Left 01/06/2001 Inguinal hernia x 2 PAST SURGICAL HISTORY OF 04/04/2003 Right foot surgery PAST SURGICAL HISTORY OF 06/23/2017 Right cataract surgery PAST SURGICAL HISTORY OF 07/04/2017 Left cataract surgery UVULECTOMY EXCISION UVULA 1987 [facility], Dr. [place] ALLERGIES Enbrel [Etanercept] MEDICATIONS amoxicillin-clavulanic acid (AUGMENTIN) 875-125 mg per tablet Take 1 tablet by mouth twice daily for 10 days. benzonatate (TESSALON PERLE) 100 mg capsule Take 2 capsules by mouth three times daily as needed for up to 10 days. doxycycline hyclate (VIBRAMYCIN) 100 mg capsule Take 1 capsule by mouth twice daily for [address] (PROTONIX) 40 mg tablet Take 1 tablet by mouth once daily. abatacept (ORENCIA) 125 mg/mL Inject 125mg (1 syringe) subcutaneously one time a week. amLODIPine (NORVASC) 10 mg tablet Take 1 tablet by mouth once daily. hydrOXYchloroQUINE (PLAQUENIL) 200 mg tablet Take 1 tablet by mouth twice daily. lisinopril (ZESTRIL, PRINIVIL) 40 mg tablet Take 1 tablet by mouth once daily. albuterol HFA (VENTOLIN HFA) 90 mcg/actuation inhaler Inhale 2 Puffs as instructed every 4 hours asneeded for wheezing/shortness of breath. mometasone (ELOCON) 0.1 % cream Apply 1 application to affected area once daily as needed. FAMILY HISTORY Problem Relation Age of Onset Diabetes Mother Coronary Artery Disease Mother [place] at age 82 Ischemic Heart Disease Father at age 66 other (pituitary tumor) Brother other (Other) Brother aspiration pneumonia Coronary Artery Disease Brother Hypertension Brother Social History Tobacco Use Smoking status: Former Smoker Quit date: 03/19/1963 Years since quittin.2 Smokeless tobacco: Never Used Substance Use Topics Alcohol use: Yes Alcohol/week: 35.0 standard drinks Types: 14 Glasses of Wine (5oz) per week Drug use: No PHYSICAL EXAM BP 146/68 Pulse 62 Resp 12 Wt 83 kg (183 lb) SpO2 99% BMI 24.65 kg/m General Appearance: in no acute distress, alert, mildly ill/fatigued appearing Lungs: Lungs clear to auscultation. No wheezing, rhonchi, rales. Heart: RRR without murmur, gallop, or rubs. No ectopy Ext: no edema in LE bilaterally, good distal pulses Health maintenance reviewed with patient: DTAP,TDAP,TD(1 - Tdap) due on 03/05/2009 ADVANCE DIRECTIVE DISCUSSION Never done COVID-19 VACCINE(4 - Booster for Moderna series) due on 03/20/2021 DIABETES SCREEN due on 06/09/2024 INFLUENZA Completed PNEUMOVAX AGE 65 AND OVER WITH 5YR LOOKBACK Completed SHINGRIX VACCINE Completed MENINGOCOCCAL CONJUGATE Aged Out DATA REVIEWED: Most recent labs and imaging results. IMPRESSION: 1. Streaky densities in the right infrahilar region which may be due to atelectasis or infiltrate 2. Subtle hazy density in the right upper lobe which could be infectious/inflammatory or may represent a new lung nodule Incidental Finding: Follow-up Acuity: Incidental Finding: Suspicious appearing incidentally detected nodular lung density on CXR. Routing Code: RI_1 Recommendation: CT Chest WO IVCON Time Frame: in 4 weeks Component Latest Ref Rng & Units 06/09/2021 WBC 3.70 - 11.00 k/uL 9.45 RBC 4.20 - 6.00 m/uL 3.71 (L) Hemoglobin 13.0 - 17.0 g/dL 11.7 (L) Hematocrit 39.0 - 51.0 % 34.3 (L) MCV 80.0 - 100.0 fL 92.5 MCH 26.0 - 34.0 pg 31.5 MCHC 30.5 - 36.0 g/dL 34.1 RDW-CV 11.5 - 15.0 % 12.4 Platelet Count 150 - 400 k/uL 384 MPV 9.0 - 12.7 fL 10.7 Neut% % 84.3 Abs Neut (ANC) 1.45 - 7.50 k/uL 7.96 (H) Lymph% % 5.6 Abs Lymph 1.00 - 4.00 k/uL 0.53 (L) Pope% % 7.8 Abs Pope <0.87 k/uL 0.74 Eosin% % 1.2 Abs Eosin <0.46 k/uL 0.11 Baso% % 0.3 Abs Baso <0.11 k/uL 0.03 Immature Gran % % 0.8 IMMATURE GRANS (ABS) <0.10 k/uL 0.08 NRBC /100 WBC 0.0 Absolute nRBC <0.01 k/uL <0.01 DTYPE Auto Protein, Total 6.3 - 8.0 g/dL 6.6 Albumin 3.9 - 4.9 g/dL 3.4 (L) Calcium 8.5 - 10.2 mg/dL 8.8 Bilirubin, Total 0.2 - 1.3 mg/dL 0.3 Alkaline Phosphatase 38 - 113 U/L 74 AST 14 - 40 U/L 35 ALT 10 - 54 U/L 27 Glucose 74 - 99 mg/dL 107 (H) BUN 9 - 24 mg/dL 26 (H) Creatinine 0.73 - 1.22 mg/dL 1.24 (H) Sodium 136 - 144 mmol/L 137 Potassium 3.7 - 5.1 mmol/L 4.3 Chloride 97 - 105 mmol/L 103 CO2 22 - 30 mmol/L 24 Anion Gap 9 - 18 mmol/L 10 eGFR >=60 mL/min/1.73m 57 (L) ASSESSMENT/PLAN: 1. Pneumonia of right lung due to infectious organism, unspecified part of lung - ICD9: 483.8, ICD10: J18.9 (primary diagnosis) Symptoms improving and doing better overall. Follow-up as needed for persistent or worsening symptoms. 2. Lung nodules - ICD9: 793.19, ICD10: R91.[address] follow-up in June, patient will schedule today - CT CHEST WO IVCON 3. Renal insufficiency - ICD9: 593.9, ICD10: N28.9 Secondary to illness. Recheck in 2 weeks. - BASIC METABOLIC PNL 4. Anemia, unspecified type - ICD9: 285.9, ICD10: D64.9 Worse than previous History of anemia of chronic disease. Recheck in two weeks including iron studies. If still anemic will recommend stool OB as well - CBC + DIFF - IRON + TIBC - FERRITIN BLD Prescription instructions reviewed with patient as applicable. Potential red flag symptoms discussed with the patient. Reviewed appropriate action plan to take if red flag symptoms occur. Patient agreeable to treatment plan. Liliana Patel APRN.CNP documented in this encounter[facility]04-19-2022 History of Present illness Narrative* Mario Campbell APRN.CNP - 06/09/2021 9:26 AM EDT Subjective HPI Nontoxic-appearing male presents urgent care chief complaint cough and chest congestion. Duration of symptoms 3 weeks. Patient was seen here 06/02/21. Diagnosed with possible right atelectasis or infiltrate. Was placed on doxycycline and [id number] days. Additionally on x-rays there was a possible n ew lung nodule. Patient presents today due to consistent chest congestion. States does not feel worse. Does not like feel like he is improving. Has had night sweats and low temperatures. Is afebrile during the day. Has not use any antipyretic medications. States he does feel like he is winded slightly more easily. Eating and drinking well. Staying hydrated. Denies any productive cough chest pain pleuritic pain hemoptysis nausea vomiting abdominal pain or change in bowel or bladder habits. Past medical history prescription medication use allergies reviewed. 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 Denise Gama. Synvisc injections. HYPERSOMNI W SLEEP APNEA 03/19/2003 HYPERTENSION NOS 06/15/2005 Rheumatoid arthritis involving multiple sites with positive rheumatoid factor (HCC) 01/29/2015 CCP +, RF +, erosive. Early Rx in 2002: SSZ and plaquenil. Progression of dz 06/2010- tried Enbrel x~ 1 months (rash - stopped). RTX 01/2011, 08/2011, 03/2012, 11/2012, 06/2013, 01/2014, 07/2014, 01/2015, 08/2015, 03/2016 Rheumatoid arthritis(714.0) PAST SURGICAL HISTORY Procedure Laterality Date ARTHRP KNE CONDYLE&PLATU MEDIAL&LAT COMPARTMENTS 2011 Bilateral COLONOSCOPY 08/09/2012 COLONOSCOPY FLX DX W/COLLJ SPEC WHEN PFRMD 05/18/2005 PAST SURGICAL HISTORY OF Left 01/06/2001 Inguinal hernia x 2 PAST SURGICAL HISTORY OF 04/04/2003 Right foot surgery PAST SURGICAL HISTORY OF 06/23/2017 Right cataract surgery PAST SURGICAL HISTORY OF 07/04/2017 Left cataract surgery UVULECTOMY EXCISION UVULA 1988 [facility], Dr. [place] ALLERGIES Enbrel [Etanercept] MEDICATIONS amoxicillin-clavulanic acid (AUGMENTIN) 875-125 mg per tablet Take 1 tablet by mouth twice daily for 10 days. benzonatate (TESSALON PERLE) 100 mg capsule Take 2 capsules by mouth three times daily as needed for up to 10 days. doxycycline hyclate (VIBRAMYCIN) 100 mg capsule Take 1 capsule by mouth twice daily for [address] (PROTONIX) 40 mg tablet Take 1 tablet by mouth once daily. amLODIPine (NORVASC) 10 mg tablet Take 1 tablet by mouth once daily. hydrOXYchloroQUINE (PLAQUENIL) 200 mg tablet Take 1 tablet by mouth twice daily. lisinopril (ZESTRIL, PRINIVIL) 40 mg tablet Take 1 tablet by mouth once daily. albuterol HFA (VENTOLIN HFA) 90 mcg/actuation inhaler Inhale 2 Puffs as instructed every 4 hours asneeded for wheezing/shortness of breath. abatacept (ORENCIA) 125 mg/mL Inject 125mg (1 syringe) subcutaneously one time a week. mometasone (ELOCON) 0.1 % cream Apply 1 application to affected area once daily as needed. FAMILY HISTORY Problem Relation Age of Onset Diabetes Mother Coronary Artery Disease Mother [place] at age 82 Ischemic Heart Disease Father at age 66 other (pituitary tumor) Brother other (Other) Brother aspiration pneumonia Coronary Artery Disease Brother Hypertension Brother Social History Tobacco Use Smoking status: Former Smoker Quit date: 03/19/1963 Years since quittin.2 Smokeless tobacco: Never Used Substance Use Topics Alcohol use: Yes Alcohol/week: 35.0 standard drinks Types: 14 Glasses of Wine (5oz) per week Drug use: No BP 112/60 Pulse 70 Temp 37.2 C (98.9 F) (Tympanic) Resp 18 Wt 84.6 kg (186 lb 6.4 oz) SpO2 96% BMI 25.11 kg/m Review of Systems Constitutional: Positive for chills and malaise/fatigue. Negative for fever. HENT: Positive for congestion. Negative for ear discharge, ear pain, sinus pain and sore throat. Eyes: Negative for blurred vision, pain, discharge and redness. Respiratory: Positive for cough. Negative for hemoptysis, sputum production, shortness of breath, wheezing and stridor. Cardiovascular: Negative for chest pain. Gastrointestinal: Negative for abdominal pain, diarrhea, nausea and vomiting. Musculoskeletal: Positive for myalgias. Skin: Negative for itching and rash. Neurological: Negative for dizziness and headaches. Objective Physical Exam Constitutional: General: He is not in acute distress. Appearance: He is not diaphoretic. HENT: Head: Normocephalic. Nose: No congestion. Mouth/Throat: Mouth: Mucous membranes are moist. Pharynx: Oropharynx is clear. No oropharyngeal exudate or posterior oropharyngeal erythema. Eyes: Conjunctiva/sclera: Conjunctivae normal. Pupils: Pupils are equal, round, and reactive to light. Cardiovascular: Rate and Rhythm: Normal rate and regular rhythm. Heart sounds: Normal heart sounds. Pulmonary: Effort: Pulmonary effort is normal. No tachypnea, accessory muscle usage or respiratory distress. Breath sounds: Normal breath sounds. No stridor. No wheezing, rhonchi or rales. Chest: Chest wall: No tenderness. Abdominal: Palpations: Abdomen is soft. Tenderness: There is no abdominal tenderness. Musculoskeletal: Cervical back: Normal range of motion and neck supple. No rigidity or tenderness. Lymphadenopathy: Cervical: No cervical adenopathy. Skin: General: Skin is warm and dry. Neurological: Mental Status: He is alert and oriented to person, place, and time. ASSESSMENT/PLAN: 1. Cough - ICD9: 786.2, ICD10: R05.9 - CBC + DIFF - COMP METABOLIC PANEL Patient nontoxic-appearing. Vital signs within normal limits. Afebrile today. Patient will continueantibiotics. Will obtain lab work today. Follow-up with PCP scheduled for Tuesday. Red flags for prompt evaluation discussed with patient. Patient was educated on supportive therapies. Patient will follow up with primary care provider as needed. Patient was instructed to immediately proceed to emergency room for any new, worsening, or symptoms lasting longer than anticipated. The patient's clinical presentation is otherwise unremarkable at this time. Based on exam and clinical finding, the patient is stable for discharge. Plan of care was discussed with patient. Patient verbalizes understanding and agrees to plan of care. This note was generated using [employer] software. It may contain errors in wording, punctuation, or spelling. Mario Campbell APRN.DANIEL documented in this encounterMer[facility]04-12-2022 Instructions* Patient Instructions* Ivonne Hopson APRN.CNP - 06/02/2021 10:26 AM EDT ASSESSMENT/PLAN: 1. Cough - ICD9: 786.2, ICD10: R05.9 (primary diagnosis) - XR CHEST 2V FRONTAL/LAT Radiologist IMPRESSION: 1. Streaky densities in the right infrahilar region which may be due to atelectasis or infiltrate 2. Subtle hazy density in the right upper lobe which could be infectious/inflammatory or may represent a new lung nodule Sonogram Technician: TAWNYA Transcribe Date/Time: Jun 02 2021 10:14A Dictated by : CYNTHIA MORALES MD - BENZONATATE 100 MG CAPSULE 2. Bacterial pneumonia - ICD9: 482.9, ICD10: J15.9 - AMOXICILLIN 875 MG-POTASSIUM CLAVULANATE 125 MG TABLET - DOXYCYCLINE HYCLATE 100 MG CAPSULE 3. Abnormal x-ray of lungs with single pulmonary nodule - ICD9: 793.11, ICD10: R91.1 -follow up with PCP in one month for re-evaluation. - Follow-up with your PCP in 3-5 days if symptoms have not improved or sooner if symptoms worsen - Discussed red flags and need for immediate medical evaluation if any occur. - Discussed supportive care treatment with fluids, rest and analgesia. - Discussed expected course of illness Ivonne Hopson APRN.[facility] PATIENT INFO PNEUMONIA OVERVIEW Pneumonia is an infection of the lungs. It is a serious illness that can affect people of any age, although it is most serious in the very young, people over the age of 65, and those with underlying medical problems such as congestive heart disease, diabetes, and chronic lung disease. It is most common during the winter months, and occurs more often in smokers and men. This article will focus on community-acquired pneumonia (CAP), which refers to pneumonia that develops in people in the community, rather than in a hospital, detention, or assisted-living facility. About four million cases of CAP occur each year in the [place], and approximately 20 percentof people require hospitalization. LUNG FUNCTION As we breathe, air is inhaled through the nose and mouth, and travels through the trachea and the bronchi to the bronchioles. At the end of the bronchioles, there are tiny air sacs, called alveoli. Alveoli have thin, porous lai that contain capillaries. The mouth and respiratory tract are constantly exposed to microorganisms as air is inhaled through the nose and mouth. However, the body's defenses are usually able prevent microorganisms from entering and infecting the lungs. These defenses include the immune system, the specialized shape of the nose and pharynx, the ability to cough, and fine hair-like structures called cilia located on the bronchi. Pneumonia can develop if your defenses are not adequate or the microorganism is particularly strong. As microorganisms multiply, the alveoli become inflamed and accumulate fluid. These changes lead tothe symptoms of pneumonia. HIGH-RISK GROUPS Some groups of adults are at a greater risk of developing pneumonia. These include people who: Are greater than 65 years old Are cigarette smokers Are malnourished due to health conditions or lack of access to food Have underlying lung disease, including cystic fibrosis, asthma, or chronic obstructive pulmonary disease (emphysema) Have other underlying medical problems, including diabetes or heart disease Have a weakened immune system due to HIV, organ transplant, chemotherapy, or chronic steroid use Have difficulty coughing due to stroke, sedating drugs or alcohol, or limited mobility Have had a recent viral upper respiratory tract infection including influenza PNEUMONIA CAUSES Pneumonia can be caused by a variety of microorganisms, including viruses, bacteria, and less commonly, fungi. The most common cause of pneumonia in the [place] is the bacterium Streptococcus pneumoniae, or pneumococcus. Viruses are estimated to be the cause of adult CAP in at least 20 percent of cases. Fungi rarely cause pneumonia in people who are generally healthy; people with a weakened immune system (those with HIV, organ transplant patients, or those on chemotherapy) are at higher risk of fungal infection. Other organisms, such as Mycoplasma, are a common cause of mild pneumonia but can occasionally cause serious disease. PNEUMONIA SYMPTOMS Common symptoms of pneumonia include shortness of breath, pain with breathing, a rapid heart and breathing rate, nausea, vomiting, diarrhea, and a cough that often produces green or yellow sputum; occasionally the sputum is rust colored. Most people have a fever (temperature greater than 100.5 F or38 C), although elderly people have fever less often. Shaking chills (called rigors) and a change in mental status (confusion, unclear thinking) can occur. The characteristics of pneumonia are different than those of a more common infection, acute viral bronchitis, which does not usually cause fever and does not require treatment with an antibiotic. PNEUMONIA DIAGNOSIS Pneumonia is usually diagnosed with a medical history and physical examination, and sometimes a chest x-ray. The need for further testing depends upon the severity of the illness and the person's risk of complications. Blood oxygen measurement Pneumonia can decrease the amount of oxygen available in the blood. As a result, a blood oxygen level is often measured by attaching a small clip to the finger or ear that uses infrared light. In those who are sicker, the oxygen level may be measured by withdrawing a sampleof blood from an artery. PNEUMONIA TREATMENT The goal of treatment for patients with CAP is to treat the infection and prevent complications. Initial treatment of CAP is based upon the organism that is likely to be causing pneumonia (called empiric treatment). Most patients improve with empiric treatment. Hospital versus home care Most patients are treated for CAP at home with oral antibiotics. People who are seriously ill or are at increased risk for complications may be hospitalized. Hospital monitoring usually includes measurement of heart and breathing rate, temperature, and oxygen levels. Hospit alized patients are usually given intravenous (IV) antibiotics initially. The number of days spent in the hospital is variable, and depends upon how a person responds to treatment and if there are underlying medical problems. Some patients, including people with previous lung damage or disease, a weakened immune system, or infection in more than one lobe of the lungs (called multilobar pneumonia), may be slow to recover and require a longer hospitalization. Antibiotic choice A number of antibiotic treatment regimens exist for treatment of CAP. The choice of which antibiotic to use is based upon several factors, including the person's underlying medical problems and the likelihood of being infected with a bacteria that is resistant to specific drugs. People with certain underlying medical problems and those who have used antibiotics in the past three months have a higher risk of infection with drug resistant bacteria. For all antibiotic regimens,it is important to finish the entire course of medication and take it exactly as directed. EXPECTED RECOVERY FROM PNEUMONIA A person with pneumonia usually begins to improve after three to five days of antibiotic treatment.Improvement may be defined as feeling better or having fewer symptoms, such as cough and fever. Fatigue and a persistent, but milder, cough can last for up to one month, although most people are ableto resume their usual activities within seven days. Patients treated in the hospital may require three weeks or more to resume normal activities. All patients, whether treated at home or in the hospital, should take special care of themselves during the recovery period. This includes getting adequate rest at night and taking naps during the day if needed. Patients should drink fluids to avoid becoming dehydrated; there is no specific amount of fluid recommended, but thirst is a good indicator of the need to drink more fluids. Patients should be sure to finish all of their antibiotic medication, even if they feel better after a few days. WHEN TO SEEK HELP Anyone who suspects that they have pneumonia should seek medical care as soon as possible. Pneumonia is a serious illness that can be life-threatening if not treated, especially for people who are older than 65 years, alcoholic, have underlying medical problems, or a weakened immune system. People with the following symptoms should see their healthcare provider promptly: Fever and cough with phlegm that does not improve or worsens New shortness of breath with normal daily activities Chest pain with breathing Feeling suddenly worse after a cold or the flu PREVENTION The pneumococcal vaccine is one of the most effective ways to prevent pneumonia. Smoking cessation is another important way to prevent pneumonia. Infection control Infection control measures can help to prevent the spread of any type of infection, including pneumonia. Infection control is most commonly practiced in healthcare settings, but is useful in the community as well. Simple practices such as frequent hand washing with soap and water or alcohol-based hand rubs can be effective. Because pneumonia is spread by contact with infected respiratory secretions, people with pneumonia should limit frli-wy-ghxy contact with uninfected family and friends. The mouth and nose should be covered while coughing or sneezing, and tissues should be disposed of immediately. Sneezing/coughing into the sleeve of one's clothing (at the inner elbow) is another means of containing sprays of saliva and secretions and has the advantage of not contaminating the hands. documented in this encounterMer[facility] History of Present illness Narrative* Ivonne Hopson APRN.CNP - 06/02/2021 10:03 AM EDT Subjective HPI Lucinda Hernandez is a 85 year old male who presents with cough and chest congestion for the past 2 weeks. He has tried multiple OTC remedies without relief. His is concerned he may be developing pneumonia because he has had this in the past. He denies fever or chills. Review of Systems Constitutional: Positive for malaise/fatigue. Negative for chills and fever. HENT: Positive for congestion. Respiratory: Positive for cough and shortness of breath. Cardiovascular: Negative. 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 Denise Gama. Synvisc injections. HYPERSOMNI W SLEEP APNEA 03/19/2003 HYPERTENSION NOS 06/15/2005 Rheumatoid arthritis involving multiple sites with positive rheumatoid factor (HCC) 01/29/2015 CCP +, RF +, erosive. Early Rx in 2002: SSZ and plaquenil. Progression of dz 06/2010- tried Enbrel x~ 1 months (rash - stopped). RTX 01/2011, 08/2011, 03/2012, 11/2012, 06/2013, 01/2014, 07/2014, 01/2015, 08/2015, 03/2016 Rheumatoid arthritis(714.0) PAST SURGICAL HISTORY Procedure Laterality Date ARTHRP KNE CONDYLE&PLATU MEDIAL&LAT COMPARTMENTS 2011 Bilateral COLONOSCOPY 08/09/2012 COLONOSCOPY FLX DX W/COLLJ SPEC WHEN PFRMD 05/18/2005 PAST SURGICAL HISTORY OF Left 01/06/2001 Inguinal hernia x 2 PAST SURGICAL HISTORY OF 04/04/2003 Right foot surgery PAST SURGICAL HISTORY OF 06/23/2017 Right cataract surgery PAST SURGICAL HISTORY OF 07/04/2017 Left cataract surgery UVULECTOMY EXCISION UVULA 1987 [facility], Dr. Temple ALLERGIES Enbrel [Etanercept] MEDICATIONS [START ON 06/03/2021] pantoprazole DR (PROTONIX) 40 mg tablet Take 1 tablet by mouth once daily. amLODIPine (NORVASC) 10 mg tablet Take 1 tablet by mouth once daily. diclofenac (VOLTAREN) 1 % topical gel Apply 4 g to affected area four times daily. hydrOXYchloroQUINE (PLAQUENIL) 200 mg tablet Take 1 tablet by mouth twice daily. lisinopril (ZESTRIL, PRINIVIL) 40 mg tablet Take 1 tablet by mouth once daily. albuterol HFA (VENTOLIN HFA) 90 mcg/actuation inhaler Inhale 2 Puffs as instructed every 4 hours asneeded for wheezing/shortness of breath. abatacept (ORENCIA) 125 mg/mL Inject 125mg (1 syringe) subcutaneously one time a week. naproxen (NAPROSYN) 500 mg tablet Take 1 tablet by mouth twice daily as needed (joint pain). mometasone (ELOCON) 0.1 % cream Apply 1 application to affected area once daily as needed. FAMILY HISTORY Problem Relation Age of Onset Diabetes Mother Coronary Artery Disease Mother [place] at age 82 Ischemic Heart Disease Father at age 66 other (pituitary tumor) Brother other (Other) Brother aspiration pneumonia Coronary Artery Disease Brother Hypertension Brother Social History Tobacco Use Smoking status: Former Smoker Quit date: 03/19/1963 Years since quittin.2 Smokeless tobacco: Never Used Substance Use Topics Alcohol use: Yes Alcohol/week: 35.0 standard drinks Types: 14 Glasses of Wine (5oz) per week Drug use: No Objective Physical Exam Vitals and nursing note reviewed. Constitutional: Appearance: Normal appearance. HENT: Right Ear: Tympanic membrane, ear canal and external ear normal. Left Ear: Tympanic membrane, ear canal and external ear normal. Nose: Mucosal edema and congestion present. Mouth/Throat: Mouth: Mucous membranes are moist. Pharynx: Oropharynx is clear. No oropharyngeal exudate or posterior oropharyngeal erythema. Cardiovascular: Rate and Rhythm: Normal rate and regular rhythm. Heart sounds: Normal heart sounds. Pulmonary: Effort: Pulmonary effort is normal. No respiratory distress. Breath sounds: Normal breath sounds. No wheezing or rales. Skin: General: Skin is warm and dry. Findings: No erythema or rash. Neurological: Mental Status: He is alert. ASSESSMENT/PLAN: 1. Cough - ICD9: 786.2, ICD10: R05.9 (primary diagnosis) - XR CHEST 2V FRONTAL/LAT Radiologist IMPRESSION: 1. Streaky densities in the right infrahilar region which may be due to atelectasis or infiltrate 2. Subtle hazy density in the right upper lobe which could be infectious/inflammatory or may represent a new lung nodule Incidental Finding: Follow-up Acuity: Incidental Finding: Suspicious appearing incidentally detected nodular lung density on CXR. Routing Code: RI_1 Recommendation: CT Chest WO IVCON Time Frame: in 4 weeks Sonogram Technician: TAWNYA Transcribe Date/Time: Jun 02 2021 10:14A Dictated by : CYNTHIA MORALES MD - BENZONATATE 100 MG CAPSULE - Chart forwarded to PCP to follow up on lung nodule. 2. Bacterial pneumonia - ICD9: 482.9, ICD10: J15.9 - AMOXICILLIN 875 MG-POTASSIUM CLAVULANATE 125 MG TABLET - DOXYCYCLINE HYCLATE 100 MG CAPSULE 3. Abnormal x-ray of lungs with single pulmonary nodule - ICD9: 793.11, ICD10: R91.1 -follow up with PCP in one month for re-evaluation. - Follow-up with your PCP in 3-5 days if symptoms have not improved or sooner if symptoms worsen - Discussed red flags and need for immediate medical evaluation if any occur. - Discussed supportive care treatment with fluids, rest and analgesia. - Discussed expected course of illness Ivonne Hopson APRN.CNP documented in this encounterMer[facility]04-11-2022 Miscellaneous Notes* Telephone Encounter - Dotty Resendez - 06/01/2021 10:27 AM EDT Please approve prescription and any additional refills and e-script to designated pharmacy. Thank you, Dotty Resendez documented in this encounterMer[facility]04-08-2022 Miscellaneous Notes* Telephone Encounter - Cynthia Espinoza LPN - 05/29/2021 10:18 AM EDT Manual Readin/64 Pulse: 68 Reason for blood pressure check - Last BP elevated and Medication adjustment Patient is: Taking medication as prescribed Yes Took medication today Yes If no, date medication last taken N/A Experiencing side effects No BP was elevated at last appt 04/28/21. Amlodipine was increased to 10mg daily. Tolerating medication change well. Denies any chest pain, shortness of breath, dizziness, or headaches. Daily caffeine use. Past personal history of tobacco use; no current exposure. Alert and oriented. Pt has been identified by name and birthdate: Yes Allergies reviewed: Yes Latex allergy: no. Medication - prescribed and OTC reviewed and updated: Yes Do you need any prescription refills prior to your next visit: No Health Maintenance: Reviewed and not up to date and provider notified Patient advised to continue with current medications and would be contacted if any further instructions after review by PCP. Cynthia Espinoza LPN documented in this encounterMer[facility]04-08-2022 History of Present illness Narrative* Cynthia Espinoza LPN - 05/29/2021 10:17 AM EDT Manual Readin/64 Pulse: 68 Reason for blood pressure check - Last BP elevated and Medication adjustment Patient is: Taking medication as prescribed Yes Took medication today Yes If no, date medication last taken N/A Experiencing side effects No BP was elevated at last appt 04/28/21. Amlodipine was increased to 10mg daily. Tolerating medication change well. Denies any chest pain, shortness of breath, dizziness, or headaches. Daily caffeine use. Past personal history of tobacco use; no current exposure. Alert and oriented. Pt has been identified by name and birthdate: Yes Allergies reviewed: Yes Latex allergy: no. Medication - prescribed and OTC reviewed and updated: Yes Do you need any prescription refills prior to your next visit: No Health Maintenance: Reviewed and not up to date and provider notified Patient advised to continue with current medications and would be contacted if any further instructions after review by PCP. Cynthia Espinoza LPN documented in this encounterMer[facility]03-29-2022 History of Present illness Narrative* Bryon Villalpando (Library Paraprofessional) - 05/19/2021 1:53 PM EDT [facility] received prescription(s) for Orencia from Dr. Maritza Bal's office. Benefits investigation was conducted, indicating that a prior authorization is required by pt's plan with [employer]. Note will be updated once prior authorization has been submitted. Bryon Villalpando CPhT (Dee) [facility] documented in this encounterMer[facility]03-29-2022 History of Present illness Narrative* Maritza Bal MD - 05/19/2021 11:30 AM EDT [facility] [place] Department of Rheumatic and Immunologic Diseases Established patient: RA CC: Pain in B/l Wrists This visit was done virtually due to COVID 19 pandemic Background history: Lucinda Hernandez is a 85 year old year-old male with PMH notable for seropositive erosive (CCP, RF) RA,OA, and BPH who presents to Rheumatology Clinic for evaluation of pain in B/l wrists. He states that he has had RA for about 15 years and was first started on oral medications. 12 years ago he was started on Rituximab. He has not had any reactions to the infusion and says he gets about 4 months of relief after the infusion. He was recently diagnosed with Pneumonia and was put on antibiotics. He says he is improving. He has stopped taking his Sulfasalazine because the pharmacy has been out of stock and was told to increase his Plaquenil dose by 1/2 a tablet. He says this has been going well so far. Treatment history of RA Early Rx in 2002: SSZ and plaquenil. Progression of dz 06/2010- tried Enbrel x ~ 1 months (rash -stopped). RTX 1g x2: 01/2011, 08/2011, 03/2012, 11/2012, 06/2013, 01/2014, 07/2014, 01/2015, 08/2015, 03/2016, 08/2016, 08/2017 RTX 1g x1: 02/2017 Last infusions on 06/11, 06/2020 1 g each On HCQ 300 mg - last OCT exam was done locally and was normal - last one was scanned in our documment was in 04/2019 Off of SSZ Takes naproxen every day Interval history May 19, 2021 No divericultitis in the past Last RTX 1000 mg in 01/27/2021 Right wrist pain. closer to evening. - US in 04/2021 showed minimal active synovitis No prolonged stiffness back on naproxen Uses voltaren gel Received COVID booster and 2 evusheld shots No recent infection or illness Creatinine was checked earlier this month and was normal Review of Systems: REVIEW OF SYSTEMS PAIN ASSESSMENT: CURRENTLY HAVING PAIN in b/l Wrists GENERAL: 17 pounds weight loss HEENT: regular seasonal allergy NECK: Negative for lumps, goiter, pain and significant neck swelling RESPIRATORY: still some chest congestion CARDIOVASCULAR: Negative for chest pain, leg swelling, hypertension, CHF or palpitations GI: No nausea, vomiting, or diarrhea MUSCULOSKELETAL: pain in right wrist ENDOCRINE: Negative for cold or heat intolerance, polyuria, polydipsia and goiter NEURO: No history of headaches, syncope, paralysis, seizures or tremors Answers for HPI/ROS submitted by the patient on 05/19/2021 Fever : No Recent Unintentional Weight Change: No Eye Pain: No Eye Redness: No Vision Disturbance: No Eye Dryness: No Nose Bleeds: No Sores in your Mouth: No Trouble Swallowing: No Dry Mouth: No Chest Pain: No Leg Swelling: No A Cough: No Shortness of Breath: No Pain with Breathing: No Heartburn: No Abdominal Pain: No Diarrhea: No Black Tarry Stools: No Blood in Urine: No Pain or Burning with Urination: No Joint Pain or Stiffness: Yes Muscle Weakness: No Muscle Aches: No Joint Swelling: No Morning Stiffness in Joints: No A Rash: No Skin Color Changes: No Hair Loss: Yes Nail Changes: No Headaches: No Numbness: No Memory Loss: No Swollen Glands: No Otherwise, a 12 point ROS was obtained and was negative. 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 Denise Gama. Synvisc injections. HYPERSOMNI W SLEEP APNEA 03/19/2003 HYPERTENSION NOS 06/15/2005 Rheumatoid arthritis involving multiple sites with positive rheumatoid factor (HCC) 01/29/2015 CCP +, RF +, erosive. Early Rx in 2002: SSZ and plaquenil. Progression of dz 06/2010- tried Enbrel x~ 1 months (rash - stopped). RTX 01/2011, 08/2011, 03/2012, 11/2012, 06/2013, 01/2014, 07/2014, 01/2015, 08/2015, 03/2016 Rheumatoid arthritis(714.0) PAST SURGICAL HISTORY Procedure Laterality Date ARTHRP KNE CONDYLE&PLATU MEDIAL&LAT COMPARTMENTS 2011 Bilateral COLONOSCOPY 08/09/2012 COLONOSCOPY FLX DX W/COLLJ SPEC WHEN PFRMD 05/18/2005 PAST SURGICAL HISTORY OF Left 01/06/2001 Inguinal hernia x 2 PAST SURGICAL HISTORY OF 04/04/2003 Right foot surgery PAST SURGICAL HISTORY OF 06/23/2017 Right cataract surgery PAST SURGICAL HISTORY OF 07/04/2017 Left cataract surgery UVULECTOMY EXCISION UVULA 1987 [facility], Dr. Temple FAMILY HISTORY Problem Relation Age of Onset Diabetes Mother Coronary Artery Disease Mother [place] at age 82 Ischemic Heart Disease Father at age 66 other (pituitary tumor) Brother other (Other) Brother aspiration pneumonia Coronary Artery Disease Brother Hypertension Brother Social History Tobacco Use Smoking status: Former Smoker Quit date: 03/19/1963 Years since quittin.2 Smokeless tobacco: Never Used Substance Use Topics Alcohol use: Yes Alcohol/week: 35.0 standard drinks Types: 14 Glasses of Wine (5oz) per week Drug use: No MEDICATIONS: amLODIPine (NORVASC) 10 mg tablet Take 1 tablet by mouth once daily. naproxen (NAPROSYN) 500 mg tablet Take 1 tablet by mouth twice daily as needed (joint pain). pantoprazole DR (PROTONIX) 40 mg tablet Take 1 tablet by mouth once daily. diclofenac (VOLTAREN) 1 % topical gel Apply 4 g to affected area four times daily. hydrOXYchloroQUINE (PLAQUENIL) 200 mg tablet Take 1 tablet by mouth twice daily. lisinopril (ZESTRIL, PRINIVIL) 40 mg tablet Take 1 tablet by mouth once daily. albuterol HFA (VENTOLIN HFA) 90 mcg/actuation inhaler Inhale 2 Puffs as instructed every 4 hours asneeded for wheezing/shortness of breath. mometasone (ELOCON) 0.1 % cream Apply 1 application to affected area once daily as needed. riTUXimab in NaCl 0.9% Inject 600 mg intravenously once every 6 months. ALLERGIES Allergen Reactions Enbrel [Etanercept] Rash Physical Examination: Vitals: There were no vitals taken for this visit. GEN: awake, alert, well-appearing PULM: on RA. No acute distress NEURO: no facial asymmetry SKIN: no facial asymmetry ASSESSMENT: This visit was done virtually mikaela due to COVID 19 pandemic Lucinda Hernandez is a 85 year old year-old male with PMH notable for seropositive erosive (CCP, RF) RA,OA, and BPH who presents to Rheumatology Clinic for evaluation of pain in B/l wrists. He states that he has had RA for about 15 years and was first started on oral medications. 12 years ago he was started on Rituximab. He has not had any reactions to the infusion and says he gets about 4 months of relief after the infusion. Main complaint is right wrist pain which could be multifactorial ( chronic damage, OA changes in addition to possible low to mild active RA based on exam given new data from different study about increase risk for serious COVID infection in pts on RTX - I am in favor of changing therapy - US done in 04/2021 that showed minimal active synovitis in wrists and PIPs level We discussed about changing therapy to orencia - no history of melanoma or CODP - we will submit tohis insurance - he had allergic reaction to enbrel We will resume naproxen as kidney function normalized. And will add PPI with it and recheck creatinine in few weeks Continue Plaquenil 2 tablets a day - his OCT exam was normal - Discontinue Sulfasalazine He is vaccinated for COVID with booster - DXA Axial Skeleton at next visit I spent a total of 25 minutes on the date of the service which included preparing to see the patient, [id number] patient care, completing clinical documentation, obtaining and/or reviewing separately obtained history, performing a medically appropriate examination, counseling and educating the pat ient/family/caregiver and ordering medications, tests, or procedures. Maritza Bal MD Rheumatology staff May 19, 2021 documented in this encounterMer[facility]03-16-2022 Instructions* Patient Instructions* Oliva Lemus, [facility] - 05/06/2021 9:36 AM EDT Fact Sheet for Patients, Parents And Caregivers Emergency Use Authorization (EUA) of EVUSHELD (tixagevimab co-packaged with cilgavimab) for Coronavirus Disease 2019 (COVID-19) You are being given this Fact Sheet because your healthcare provider believes it is necessary to provide you with EVUSHELD (tixagevimab co-packaged with cilgavimab) for pre-exposure prophylaxis for prevention of coronavirus disease 2019 (COVID-19) caused by the SARS-CoV-2 virus. This Fact Sheet contains information to help you understand the potential risks and potential benefits of taking EVUSHELD, which you have received or may receive. The U.S. Food and Drug Administration (FDA) has issued an Emergency Use Authorization (EUA) to makeEVUSHELD available during the COVID-19 pandemic (for more details about an EUA please see What is an Emergency Use Authorization? at the end of this document). EVUSHELD is not an FDA-approved medicine in the [place]. Read this Fact Sheet for information about EVUSHELD. Talk to your healthcare provider if you have any questions. It is your choice to receive or not receive EVUSHELD. What is COVID-19? COVID-19 is caused by a virus called a coronavirus. You can get COVID-19 through close contact withanother person who has the virus. COVID-19 illnesses have ranged from very mild (including some with no reported symptoms) to severe,including illness resulting in . While information so far suggests that most COVID-19 illness is mild, serious illness can happen and may cause some of your other medical conditions to become worse. Older people and people of all ages with severe, long-lasting (chronic) medical conditions likeheart disease, lung disease, and diabetes, for example, seem to be at higher risk of being hospitalized for COVID-19. What is EVUSHELD (tixagevimab co-packaged with cilgavimab)? EVUSHELD is an investigational medicine used in adults and adolescents (12 years of age and older who weigh at least 88 pounds [40 kg]) for pre-exposure prophylaxis for prevention of COVID-19 in persons who are: not currently infected with SARS-CoV-2 and who have not had recent known close contact with someonewho is infected with SARS-CoV-2 and o Who have moderate to severe immune compromise due to a medical condition or have received immunosuppressive medicines or treatments and may not mount an adequate immune response to COVID-19 vaccination or o For whom vaccination with any available COVID-19 vaccine, according to the approved or authorizedschedule, is not recommended due to a history of severe adverse reaction (such as severe allergic reaction) to a COVID-19 vaccine(s) or COVID-19 vaccine ingredient(s). EVUSHELD is investigational because it is still being studied. There is limited information known about the safety and effectiveness of using EVUSHELD for pre- exposure prophylaxis for prevention of COVID-19. EVUSHELD is not authorized for post-exposure prophylaxis for prevention of COVID-19. The FDA has authorized the emergency use of EVUSHELD for pre-exposure prophylaxis for prevention ofCOVID-19 under an Emergency Use Authorization (EUA). What should I tell my healthcare provider before I receive EVUSHELD? Tell your healthcare provider if you: Have any allergies Have low numbers of blood platelets (which help blood clotting), a bleeding disorder, or are takinganticoagulants (to prevent blood clots) Have had a heart attack or stroke, have other heart problems, or are at high- risk of cardiac (heart) events Are or plan to become Are a child Have any serious illness Are taking any medications (prescription, [id number], vitamins, or herbal products) How will I receive EVUSHELD? EVUSHELD consists of two investigational medicines, tixagevimab and cilgavimab. You will receive 1 dose of EVUSHELD, consisting of 2 separate injections (tixagevimab and cilgavimab). EVUSHELD will be given to you by your healthcare provider as 2 intramuscular injections, given one after the other. You may need to receive additional doses of EVUSHELD for ongoing protection. Viruses can oil change technician time (mutate) and develop into a slightly different form of the virus, called a variant. The duration that EVUSHELD will protect you from infection may change with certain variants. The best timing for you to receive additional doses of EVUSHELD, if needed, is not known right now, because this depends on which SARS-CoV-2 variants will be present in the future. Talk to your healthcare provider about receiving additional doses of EVUSHELD for ongoing protection and for further instructions. You can keep up-to-date with the latest information by visiting [email or web address].[email or web address] or by scanning the QR code, below: Who should generally not take EVUSHELD? Do not take EVUSHELD if you have had a severe allergic reaction to EVUSHELD or any ingredient in EVUSHELD. What are the important possible side effects of EVUSHELD? Possible side effects of EVUSHELD are: Allergic reactions. Allergic reactions can happen during and after injection of EVUSHELD. Tell yourhealthcare provider right away if you get any of the following signs and symptoms of allergic reactions: fever, chills, nausea, headache, shortness of breath, low or high blood pressure, rapid or slow heart rate, chest discomfort or pain, weakness, confusion, feeling tired, wheezing, swelling of your lips, face, or throat, rash including hives, itching, muscle aches, dizziness and sweating. Thesereactions may be severe or life threatening. Cardiac (heart) events: Serious cardiac adverse events have happened, but were not common, in people who received EVUSHELD and also in people who did not receive EVUSHELD in the clinical trial studying pre-exposure prophylaxis for prevention of COVID-19. In people with risk factors for cardiac events (including a history of heart attack), more people who received EVUSHELD experienced serious cardiac events than people who did not receive EVUSHELD. It is not known if these events are related to EVUSHELD or underlying medical conditions. Contact your healthcare provider or get medical help right away if you get any symptoms of cardiac events, including pain, pressure, or discomfort in the chest, arms, neck, back, stomach or jaw, as well as shortness of breath, feeling tired or weak (fatigue), feeling sick (nausea), or swelling in your ankles or lower legs. The side effects of getting any medicine by intramuscular injection may include pain, bruising of the skin, soreness, swelling, and possible bleeding or infection at the injection site. These are not all the possible side effects of EVUSHELD. Not a lot of people have been given EVUSHELD. Serious and unexpected side effects may happen. EVUSHELD is still being studied so it is possible that all of the risks are not known at this time. It is possible that EVUSHELD may reduce your body s immune response to a COVID- 19 vaccine. If you have received a COVID-19 vaccine, you should wait to receive EVUSHELD until at least 2 weeks after COVID-19 vaccination. What other prevention choices are there? Vaccines to prevent COVID-19 are approved or available under Emergency Use Authorization. Use of EVUSHELD does not replace vaccination against COVID-19. For more information about other medicines authorized for treatment or prevention of COVID-19 go to https://www.fda.gov/ixvzmqgvb-zgdeapwqnyfg-yzc-response/rue-vormy-kfzdsvasmv-and -policy-framework/dazreykgh-wkn-unucntuumhfag. It is your choice to receive or not receive EVUSHELD. Should you decide not to receive EVUSHELD, itwill not change your standard medical care. EVUSHELD is not authorized for post-exposure prophylaxis of COVID-19. What if I am or ? If you are or , discuss your options and specific situation with your healthcare provider. How do I report side effects with EVUSHELD? Contact your healthcare provider if you have any side effects that bother you or do not go away. Report side effects to FDA MedWatch at www.fda.gov/medwatch or call 7-364-NFZ-1088 or call [employer] . Additional Information If you have questions, visit the website or call the telephone number provided below. To access the most recent EVUSHELD Fact Sheets, please scan the QR code provided below. Website Telephone number [email or web address] How can I learn more about COVID-19? Ask your healthcare provider. Visit https://www.cdc.gov/COVID19 Contact your local or state public health department. What is an Emergency Use Authorization? The [place] FDA has made EVUSHELD (tixagevimab co-packaged with cilgavimab) available under an emergency access mechanism called an Emergency Use Authorization EUA. The EUA is supported by a [place] of Health and Human Service (HHS) declaration that circumstances exist to justify the emergency use of drugs and biological products during the COVID-19 pandemic. EVUSHELD for pre-exposure prophylaxis for prevention of coronavirus disease 2019 (COVID-19) caused by the SARS-CoV-2 virus has not undergone the same type of review as an FDA-approved product. In issuing an EUA under the COVID-19 public health emergency, the FDA has determined, among other things, that based on the total amount of scientific evidence available including data from adequate and well-controlled clinical trials, if available, it is reasonable to believe that the product may be effective for diagnosing, treating, or preventing COVID-19, or a serious or life-threatening disease or condition caused by COVID-19; that the known and potential benefits of the product, when used to diagnose, treat, or prevent such disease or condition, outweigh the known and potential risks of such product; and that there are no adequate, approved and available alternatives. All of these criteria must be met to allow for the product to be used in the treatment of patients during the COVID-19 pandemic. The EUA for EVUSHELD is in effect for the duration of the COVID-19 declaration justifying emergency use of EVUSHELD, unless terminated or revoked (after which EVUSHELD may no longer be used under the EUA). Distributed by: [employer], [place], [place] Manufactured by: [employer], [address] [place] [address], [place] [employer] 2020. All rights reserved. documented in [facility] Miscellaneous Notes* Telephone Encounter - Oliva Lemus RPh - 05/06/2021 9:36 AM EDT Evusheld (tixagevimab/cilgavimab) Eligibility and Patient Discussion Based on the most recent information and data available, the FDA has updated the authorized dose ofEvusheld to improve effectiveness at preventing COVID-19 infection with current circulating SARS-CoV-2 variants. Patient has received the previously authorized Evusheld dose (150 mg of tixagevimab and 150 mg of cilgavimab) and agrees to receive an additional dose of Evusheld (150 mg of tixagevimab and 150 mg ofcilgavimab) at specialty clinic. The patient verbalized understanding of repeating a COVID test 72 hours prior to the second injection. Oliva Lemus PharmD Rheumatology Clinical Director Strategy documented in this encounterMer[facility]03[facility]22 Miscellaneous Notes* Telephone Encounter - Dotty Resendez - 04/23/2021 12:20 PM EST Outside clinical information uploaded documented in this encounterMer[facility]04-04-[facility] History of Past illness Narrative* Problem Noted Date Resolved Date Visit for monitoring Rituxan therapy 05/25/2017 08/31/2017 Visit for monitoring Rituxan therapy 06/30/2016 09/01/2016 Testalgia, left 10/08/2015 10/27/2017 Cough 05/28/2015 03/22/2016 Psoriasis of scalp 12/26/2013 12/26/2013 Overview: Dermatology: Dr. Zach Velazquez. 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 10/14/2010 7 Hypersomnia with sleep apnea, unspecified 200310/22/2016 documented as of this encounter (statuses as of 05/19/2021) [facility] of Past illness Narrative* Problem Noted Date Resolved Date Visit for monitoring Rituxan therapy 05/25/2017 08/31/2017 Visit for monitoring Rituxan therapy 06/30/2016 09/01/2016 Testalgia, left 10/08/2015 10/27/2017 Cough 05/28/2015 03/22/2016 Psoriasis of scalp 12/26/2013 12/26/2013 Overview: Dermatology: Dr. Zach Velazquez. 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 10/14/2010 7 Hypersomnia with sleep apnea, unspecified 200310/22/2016 documented as of this encounter (statuses as of 05/19/2021) [facility] of Past illness Narrative* Problem Noted Date Resolved Date Visit for monitoring Rituxan therapy 05/25/2017 08/31/2017 Visit for monitoring Rituxan therapy 06/30/2016 09/01/2016 Testalgia, left 10/08/2015 10/27/2017 Cough 05/28/2015 03/22/2016 Psoriasis of scalp 12/26/2013 12/26/2013 Overview: Dermatology: Dr. Zach Velazquez. 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 10/14/2010 7 Hypersomnia with sleep apnea, unspecified 200310/22/2016 documented as of this encounter (statuses as of 05/29/2021) [facility] of [facility] illness Narrative* Problem Noted Date Resolved Date Visit for monitoring Rituxan therapy 05/25/2017 08/31/2017 Visit for monitoring Rituxan therapy 06/30/2016 09/01/2016 Testalgia, left 10/08/2015 10/27/2017 Cough 05/28/2015 03/22/2016 Psoriasis of scalp 12/26/2013 12/26/2013 Overview: Dermatology: Dr. Zach Velazquez. 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 10/14/2010 7 Hypersomnia with sleep apnea, unspecified 200310/22/2016 documented as of this encounter (statuses as of 06/01/2021) [facility] of Past illness Narrative* Problem Noted Date Resolved Date Visit for monitoring Rituxan therapy 05/25/2017 08/31/2017 Visit for monitoring Rituxan therapy 06/30/2016 09/01/2016 Testalgia, left 10/08/2015 10/27/2017 Cough 05/28/2015 03/22/2016 Psoriasis of scalp 12/26/2013 12/26/2013 Overview: Dermatology: Dr. Zach Velazquez. 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 10/14/2010 7 Hypersomnia with sleep apnea, unspecified 200310/22/2016 documented as of this encounter (statuses as of 06/02/2021) [facility] of [facility] illness Narrative* Problem Noted Date Resolved Date Visit for monitoring Rituxan therapy 05/25/2017 08/31/2017 Visit for monitoring Rituxan therapy 06/30/2016 09/01/2016 Testalgia, left 10/08/2015 10/27/2017 Cough 05/28/2015 03/22/2016 Psoriasis of scalp 12/26/2013 12/26/2013 Overview: Dermatology: Dr. Zach Velazquez. 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 10/14/2010 7 Hypersomnia with sleep apnea, unspecified 200310/22/2016 documented as of this encounter (statuses as of 06/02/2021) [facility] of [facility] illness Narrative* Problem Noted Date Resolved Date Visit for monitoring Rituxan therapy 05/25/2017 08/31/2017 Visit for monitoring Rituxan therapy 06/30/2016 09/01/2016 Testalgia, left 10/08/2015 10/27/2017 Cough 05/28/2015 03/22/2016 Psoriasis of scalp 12/26/2013 12/26/2013 Overview: Dermatology: Dr. Zach Velazquez. 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 10/14/2010 7 Hypersomnia with sleep apnea, unspecified 200310/22/2016 documented as of this encounter (statuses as of 06/09/2021) [facility] illness Narrative* Problem Noted Date Resolved Date Visit for monitoring Rituxan therapy 05/25/2017 08/31/2017 Visit for monitoring Rituxan therapy 06/30/2016 09/01/2016 Testalgia, left 10/08/2015 10/27/2017 Cough 05/28/2015 03/22/2016 Psoriasis of scalp 12/26/2013 12/26/2013 Overview: Dermatology: Dr. Zach Velazquez. 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 10/14/2010 7 Hypersomnia with sleep apnea, unspecified 200310/22/2016 documented as of this encounter (statuses as of 06/12/2021) [facility] Narrative* Problem Noted Date Resolved Date Visit for monitoring Rituxan therapy 05/25/2017 08/31/2017 Visit for monitoring Rituxan therapy 06/30/2016 09/01/2016 Testalgia, left 10/08/2015 10/27/2017 Cough 05/28/2015 03/22/2016 Psoriasis of scalp 12/26/2013 12/26/2013 Overview: Dermatology: Dr. Zach Velazquez. 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 10/14/2010 7 Hypersomnia with sleep apnea, unspecified 200310/22/2016 documented as of this encounter (statuses as of 07/01/2021) [facility] of [facility] illness Narrative* Problem Noted Date Resolved Date Visit for monitoring Rituxan therapy 05/25/2017 08/31/2017 Visit for monitoring Rituxan therapy 06/30/2016 09/01/2016 Testalgia, left 10/08/2015 10/27/2017 Cough 05/28/2015 03/22/2016 Psoriasis of scalp 12/26/2013 12/26/2013 Overview: Dermatology: Dr. Zach Velazquez. 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 10/14/2010 7 Hypersomnia with sleep apnea, unspecified 200310/22/2016 documented as of this encounter (statuses as of 07/01/2021) [facility] illness Narrative* Problem Noted Date Resolved Date Visit for monitoring Rituxan therapy 05/25/2017 08/31/2017 Visit for monitoring Rituxan therapy 06/30/2016 09/01/2016 Testalgia, left 10/08/2015 10/27/2017 Cough 05/28/2015 03/22/2016 Psoriasis of scalp 12/26/2013 12/26/2013 Overview: Dermatology: Dr. Zach Velazquez. 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 10/14/2010 7 Hypersomnia with sleep apnea, unspecified 200310/22/2016 documented as of this encounter (statuses as of 07/01/2021) [facility] Narrative* Problem Noted Date Resolved Date Visit for monitoring Rituxan therapy 05/25/2017 08/31/2017 Visit for monitoring Rituxan therapy 06/30/2016 09/01/2016 Testalgia, left 10/08/2015 10/27/2017 Cough 05/28/2015 03/22/2016 Psoriasis of scalp 12/26/2013 12/26/2013 Overview: Dermatology: Dr. Zach Velazquez. 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 10/14/2010 7 Hypersomnia with sleep apnea, unspecified 200310/22/2016 documented as of this encounter (statuses as of 07/02/2021) [facility] Narrative* Problem Noted Date Resolved Date Visit for monitoring Rituxan therapy 05/25/2017 08/31/2017 Visit for monitoring Rituxan therapy 06/30/2016 09/01/2016 Testalgia, left 10/08/2015 10/27/2017 Cough 05/28/2015 03/22/2016 Psoriasis of scalp 12/26/2013 12/26/2013 Overview: Dermatology: Dr. Zach Velazquez. 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 10/14/2010 7 Hypersomnia with sleep apnea, unspecified 200310/22/2016 documented as of this encounter (statuses as of 07/02/2021) [facility] Narrative* Problem Noted Date Resolved Date Visit for monitoring Rituxan therapy 05/25/2017 08/31/2017 Visit for monitoring Rituxan therapy 06/30/2016 09/01/2016 Testalgia, left 10/08/2015 10/27/2017 Cough 05/28/2015 03/22/2016 Psoriasis of scalp 12/26/2013 12/26/2013 Overview: Dermatology: Dr. Zach Velazquez. 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 10/14/2010 7 Hypersomnia with sleep apnea, unspecified 200310/22/2016 documented as of this encounter (statuses as of 07/06/2021) [facility] Narrative* Problem Noted Date Resolved Date Visit for monitoring Rituxan therapy 05/25/2017 08/31/2017 Visit for monitoring Rituxan therapy 06/30/2016 09/01/2016 Testalgia, left 10/08/2015 10/27/2017 Cough 05/28/2015 03/22/2016 Psoriasis of scalp 12/26/2013 12/26/2013 Overview: Dermatology: Dr. Zach Velazquez. 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 10/14/2010 7 Hypersomnia with sleep apnea, unspecified 200310/22/2016 documented as of this encounter (statuses as of 07/07/2021) [facility] Narrative* Problem Noted Date Resolved Date Visit for monitoring Rituxan therapy 05/25/2017 08/31/2017 Visit for monitoring Rituxan therapy 06/30/2016 09/01/2016 Testalgia, left 10/08/2015 10/27/2017 Cough 05/28/2015 03/22/2016 Psoriasis of scalp 12/26/2013 12/26/2013 Overview: Dermatology: Dr. Zach Velazquez. 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 10/14/2010 7 Hypersomnia with sleep apnea, unspecified 200310/22/2016 documented as of this encounter (statuses as of 07/10/2021) [facility] Narrative* Problem Noted Date Resolved Date Visit for monitoring Rituxan therapy 05/25/2017 08/31/2017 Visit for monitoring Rituxan therapy 06/30/2016 09/01/2016 Testalgia, left 10/08/2015 10/27/2017 Cough 05/28/2015 03/22/2016 Psoriasis of scalp 12/26/2013 12/26/2013 Overview: Dermatology: Dr. Zach Velazquez. 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 10/14/2010 7 Hypersomnia with sleep apnea, unspecified 200310/22/2016 documented as of this encounter (statuses as of 07/17/2021) [facility] Narrative* Problem Noted Date Resolved Date Visit for monitoring Rituxan therapy 05/25/2017 08/31/2017 Visit for monitoring Rituxan therapy 06/30/2016 09/01/2016 Testalgia, left 10/08/2015 10/27/2017 Cough 05/28/2015 03/22/2016 Psoriasis of scalp 12/26/2013 12/26/2013 Overview: Dermatology: Dr. Zach Velazquez. 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 10/14/2010 7 Hypersomnia with sleep apnea, unspecified 200310/22/2016 documented as of this encounter (statuses as of 07/23/2021) [facility] Narrative* Problem Noted Date Resolved Date Visit for monitoring Rituxan therapy 05/25/2017 08/31/2017 Visit for monitoring Rituxan therapy 06/30/2016 09/01/2016 Testalgia, left 10/08/2015 10/27/2017 Cough 05/28/2015 03/22/2016 Psoriasis of scalp 12/26/2013 12/26/2013 Overview: Dermatology: Dr. Zach Velazquez. 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 10/14/2010 7 Hypersomnia with sleep apnea, unspecified 200310/22/2016 documented as of this encounter (statuses as of 07/27/2021) [facility] Narrative* Problem Noted Date Resolved Date Visit for monitoring Rituxan therapy 05/25/2017 08/31/2017 Visit for monitoring Rituxan therapy 06/30/2016 09/01/2016 Testalgia, left 10/08/2015 10/27/2017 Cough 05/28/2015 03/22/2016 Psoriasis of scalp 12/26/2013 12/26/2013 Overview: Dermatology: Dr. Zach Velazquez. 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 10/14/2010 7 Hypersomnia with sleep apnea, unspecified 200310/22/2016 documented as of this encounter (statuses as of 07/27/2021) [facility] Narrative* Problem Noted Date Resolved Date Visit for monitoring Rituxan therapy 05/25/2017 08/31/2017 Visit for monitoring Rituxan therapy 06/30/2016 09/01/2016 Testalgia, left 10/08/2015 10/27/2017 Cough 05/28/2015 03/22/2016 Psoriasis of scalp 12/26/2013 12/26/2013 Overview: Dermatology: Dr. Zach Velazquez. 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 10/14/2010 7 Hypersomnia with sleep apnea, unspecified 200310/22/2016 documented as of this encounter (statuses as of 07/27/2021) [facility] Narrative* Problem Noted Date Resolved Date Visit for monitoring Rituxan therapy 05/25/2017 08/31/2017 Visit for monitoring Rituxan therapy 06/30/2016 09/01/2016 Testalgia, left 10/08/2015 10/27/2017 Cough 05/28/2015 03/22/2016 Psoriasis of scalp 12/26/2013 12/26/2013 Overview: Dermatology: Dr. Zach Velazquez. 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 10/14/2010 7 Hypersomnia with sleep apnea, unspecified 200310/22/2016 documented as of this encounter (statuses as of 07/30/2021) [facility] Narrative* Problem Noted Date Resolved Date Visit for monitoring Rituxan therapy 05/25/2017 08/31/2017 Visit for monitoring Rituxan therapy 06/30/2016 09/01/2016 Testalgia, left 10/08/2015 10/27/2017 Cough 05/28/2015 03/22/2016 Psoriasis of scalp 12/26/2013 12/26/2013 Overview: Dermatology: Dr. Zach Velazquez. 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 10/14/2010 7 Hypersomnia with sleep apnea, unspecified 200310/22/2016 documented as of this encounter (statuses as of 08/06/2021) [facility] Narrative* Problem Noted Date Resolved Date Visit for monitoring Rituxan therapy 05/25/2017 08/31/2017 Visit for monitoring Rituxan therapy 06/30/2016 09/01/2016 Testalgia, left 10/08/2015 10/27/2017 Cough 05/28/2015 03/22/2016 Psoriasis of scalp 12/26/2013 12/26/2013 Overview: Dermatology: Dr. Zach Velazquez. 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 10/14/2010 7 Hypersomnia with sleep apnea, unspecified 200310/22/2016 documented as of this encounter (statuses as of 08/10/2021) [facility] Narrative* Problem Noted Date Resolved Date Visit for monitoring Rituxan therapy 05/25/2017 08/31/2017 Visit for monitoring Rituxan therapy 06/30/2016 09/01/2016 Testalgia, left 10/08/2015 10/27/2017 Cough 05/28/2015 03/22/2016 Psoriasis of scalp 12/26/2013 12/26/2013 Overview: Dermatology: Dr. Zach Velazquez. 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 10/14/2010 7 Hypersomnia with sleep apnea, unspecified 200310/22/2016 documented as of this encounter (statuses as of 08/20/2021) [facility] Narrative* Problem Noted Date Resolved Date Visit for monitoring Rituxan therapy 05/25/2017 08/31/2017 Visit for monitoring Rituxan therapy 06/30/2016 09/01/2016 Testalgia, left 10/08/2015 10/27/2017 Cough 05/28/2015 03/22/2016 Psoriasis of scalp 12/26/2013 12/26/2013 Overview: Dermatology: Dr. Zach Velazquez. 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 10/14/2010 7 Hypersomnia with sleep apnea, unspecified 200310/22/2016 documented as of this encounter (statuses as of 08/20/2021) [facility]arrative* Problem Noted Date Resolved Date Visit for monitoring Rituxan therapy 05/25/2017 08/31/2017 Visit for monitoring Rituxan therapy 06/30/2016 09/01/2016 Testalgia, left 10/08/2015 10/27/2017 Cough 05/28/2015 03/22/2016 Psoriasis of scalp 12/26/2013 12/26/2013 Overview: Dermatology: Dr. Zach Velazquez. 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 10/14/2010 7 Hypersomnia with sleep apnea, unspecified 200310/22/2016 documented as of this encounter (statuses as of 08/27/2021) [facility] Narrative* Problem Noted Date Resolved Date Visit for monitoring Rituxan therapy 05/25/2017 08/31/2017 Visit for monitoring Rituxan therapy 06/30/2016 09/01/2016 Testalgia, left 10/08/2015 10/27/2017 Cough 05/28/2015 03/22/2016 Psoriasis of scalp 12/26/2013 12/26/2013 Overview: Dermatology: Dr. Zach Velazquez. 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 10/14/2010 7 Hypersomnia with sleep apnea, unspecified 200310/22/2016 documented as of this encounter (statuses as of 09/01/2021) [facility]arrative* Problem Noted Date Resolved Date Visit for monitoring Rituxan therapy 05/25/2017 08/31/2017 Visit for monitoring Rituxan therapy 06/30/2016 09/01/2016 Testalgia, left 10/08/2015 10/27/2017 Cough 05/28/2015 03/22/2016 Psoriasis of scalp 12/26/2013 12/26/2013 Overview: Dermatology: Dr. Zach Velazquez. 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 10/14/2010 7 Hypersomnia with sleep apnea, unspecified 200310/22/2016 documented as of this encounter (statuses as of 09/01/2021) [facility]* Problem Noted Date Resolved Date Visit for monitoring Rituxan therapy 05/25/2017 08/31/2017 Visit for monitoring Rituxan therapy 06/30/2016 09/01/2016 Testalgia, left 10/08/2015 10/27/2017 Cough 05/28/2015 03/22/2016 Psoriasis of scalp 12/26/2013 12/26/2013 Overview: Dermatology: Dr. Zach Velazquez. 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 10/14/2010 7 Hypersomnia with sleep apnea, unspecified 200310/22/2016 documented as of this encounter (statuses as of 09/02/2021) [facility]arr[facility]* Problem Noted Date Resolved Date Visit for monitoring Rituxan therapy 05/25/2017 08/31/2017 Visit for monitoring Rituxan therapy 06/30/2016 09/01/2016 Testalgia, left 10/08/2015 10/27/2017 Cough 05/28/2015 03/22/2016 Psoriasis of scalp 12/26/2013 12/26/2013 Overview: Dermatology: Dr. Zach Velazquez. 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 10/14/2010 7 Hypersomnia with sleep apnea, unspecified 200310/22/2016 documented as of this encounter (statuses as of 09/15/2021) [facility] Narrative* Problem Noted Date Resolved Date Visit for monitoring Rituxan therapy 05/25/2017 08/31/2017 Visit for monitoring Rituxan therapy 06/30/2016 09/01/2016 Testalgia, left 10/08/2015 10/27/2017 Cough 05/28/2015 03/22/2016 Psoriasis of scalp 12/26/2013 12/26/2013 Overview: Dermatology: Dr. Zach Velazquez. 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 10/14/2010 7 Hypersomnia with sleep apnea, unspecified 200310/22/2016 documented as of this encounter (statuses as of 09/18/2021) [facility]04-04-2018 History of Past illness Narrative* Problem Noted Date Resolved Date Visit for monitoring Rituxan therapy 05/25/2017 08/31/2017 Visit for monitoring Rituxan therapy 06/30/2016 09/01/2016 Testalgia, left 10/08/2015 10/27/2017 Cough 05/28/2015 03/22/2016 Psoriasis of scalp 12/26/2013 12/26/2013 Overview: Dermatology: Dr. Zach Velazquez. 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 10/14/2010 7 Hypersomnia with sleep apnea, unspecified 200310/22/2016 documented as of this encounter (statuses as of 09/29/2021) [facility]2018 History of Past illness Narrative* Problem Noted Date Resolved Date Visit for monitoring Rituxan therapy 05/25/2017 08/31/2017 Visit for monitoring Rituxan therapy 06/30/2016 09/01/2016 Testalgia, left 10/08/2015 10/27/2017 Cough 05/28/2015 03/22/2016 Psoriasis of scalp 12/26/2013 12/26/2013 Overview: Dermatology: Dr. Zach Velzaquez. 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 10/14/2010 7 Hypersomnia with sleep apnea, unspecified 200310/22/2016 documented as of this encounter (statuses as of 10/12/2021) [facility] History of Past illness Narrative* Problem Noted Date Resolved Date Visit for monitoring Rituxan therapy 05/25/2017 08/31/2017 Visit for monitoring Rituxan therapy 06/30/2016 09/01/2016 Testalgia, left 10/08/2015 10/27/2017 Cough 05/28/2015 03/22/2016 Psoriasis of scalp 12/26/2013 12/26/2013 Overview: Dermatology: Dr. Zach Velazquez. 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 10/14/2010 7 Hypersomnia with sleep apnea, unspecified 200310/22/2016 documented as of this encounter (statuses as of 10/16/2021) [facility] History of Past illness Narrative* Problem Noted Date Resolved Date Visit for monitoring Rituxan therapy 05/25/2017 08/31/2017 Visit for monitoring Rituxan therapy 06/30/2016 09/01/2016 Testalgia, left 10/08/2015 10/27/2017 Cough 05/28/2015 03/22/2016 Psoriasis of scalp 12/26/2013 12/26/2013 Overview: Dermatology: Dr. Zach Velazquez. 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 10/14/2010 7 Hypersomnia with sleep apnea, unspecified 200310/22/2016 documented as of this encounter (statuses as of 10/20/2021) [facility] History of Past illness Narrative* Problem Noted Date Resolved Date Visit for monitoring Rituxan therapy 05/25/2017 08/31/2017 Visit for monitoring Rituxan therapy 06/30/2016 09/01/2016 Testalgia, left 10/08/2015 10/27/2017 Cough 05/28/2015 03/22/2016 Psoriasis of scalp 12/26/2013 12/26/2013 Overview: Dermatology: Dr. Zach Velazquez. 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 10/14/2010 7 Hypersomnia with sleep apnea, unspecified 200310/22/2016 documented as of this encounter (statuses as of 10/29/2021) [facility] History of Past illness Narrative* Problem Noted Date Resolved Date Visit for monitoring Rituxan therapy 05/25/2017 08/31/2017 Visit for monitoring Rituxan therapy 06/30/2016 09/01/2016 Testalgia, left 10/08/2015 10/27/2017 Cough 05/28/2015 03/22/2016 Psoriasis of scalp 12/26/2013 12/26/2013 Overview: Dermatology: Dr. Zach Velazquez. 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 10/14/2010 7 Hypersomnia with sleep apnea, unspecified 200310/22/2016 documented as of this encounter (statuses as of 11/03/2021) [facility] History of Past illness Narrative* Problem Noted Date Resolved Date Visit for monitoring Rituxan therapy 05/25/2017 08/31/2017 Visit for monitoring Rituxan therapy 06/30/2016 09/01/2016 Testalgia, left 10/08/2015 10/27/2017 Cough 05/28/2015 03/22/2016 Psoriasis of scalp 12/26/2013 12/26/2013 Overview: Dermatology: Dr. Zach Velazquez. 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 10/14/2010 7 Hypersomnia with sleep apnea, unspecified 200310/22/2016 documented as of this encounter (statuses as of 11/19/2021) [facility] History of Past illness Narrative* Problem Noted Date Resolved Date Visit for monitoring Rituxan therapy 05/25/2017 08/31/2017 Visit for monitoring Rituxan therapy 06/30/2016 09/01/2016 Testalgia, left 10/08/2015 10/27/2017 Cough 05/28/2015 03/22/2016 Psoriasis of scalp 12/26/2013 12/26/2013 Overview: Dermatology: Dr. Zach Velazquez. 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 10/14/2010 7 Hypersomnia with sleep apnea, unspecified 200310/22/2016 documented as of this encounter (statuses as of 11/24/2021) [facility] History of Past illness Narrative* Problem Noted Date Resolved Date Visit for monitoring Rituxan therapy 05/25/2017 08/31/2017 Visit for monitoring Rituxan therapy 06/30/2016 09/01/2016 Testalgia, left 10/08/2015 10/27/2017 Cough 05/28/2015 03/22/2016 Psoriasis of scalp 12/26/2013 12/26/2013 Overview: Dermatology: Dr. Zach Velazquez. 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 10/14/2010 7 Hypersomnia with sleep apnea, unspecified 200310/22/2016 documented as of this encounter (statuses as of 11/27/2021) [facility] History of Past illness Narrative* Problem Noted Date Resolved Date Visit for monitoring Rituxan therapy 05/25/2017 08/31/2017 Visit for monitoring Rituxan therapy 06/30/2016 09/01/2016 Testalgia, left 10/08/2015 10/27/2017 Cough 05/28/2015 03/22/2016 Psoriasis of scalp 12/26/2013 12/26/2013 Overview: Dermatology: Dr. Zach Velazquez. 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 10/14/2010 7 Hypersomnia with sleep apnea, unspecified 200310/22/2016 documented as of this encounter (statuses as of 12/01/2021) [facility] History of Past illness Narrative* Problem Noted Date Resolved Date Visit for monitoring Rituxan therapy 05/25/2017 08/31/2017 Visit for monitoring Rituxan therapy 06/30/2016 09/01/2016 Testalgia, left 10/08/2015 10/27/2017 Cough 05/28/2015 03/22/2016 Psoriasis of scalp 12/26/2013 12/26/2013 Overview: Dermatology: Dr. Zach Velazquez. 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 10/14/2010 7 Hypersomnia with sleep apnea, unspecified 200310/22/2016 documented as of this encounter (statuses as of 12/04/2021) [facility] History of Past illness Narrative* Problem Noted Date Resolved Date Visit for monitoring Rituxan therapy 05/25/2017 08/31/2017 Visit for monitoring Rituxan therapy 06/30/2016 09/01/2016 Testalgia, left 10/08/2015 10/27/2017 Cough 05/28/2015 03/22/2016 Psoriasis of scalp 12/26/2013 12/26/2013 Overview: Dermatology: Dr. Zach Velazquez. 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 10/14/2010 7 Hypersomnia with sleep apnea, unspecified 200310/22/2016 documented as of this encounter (statuses as of 12/26/2021) [facility]04[facility]2018 History of Past illness Narrative* Problem Noted Date Resolved Date Visit for monitoring Rituxan therapy 05/25/2017 08/31/2017 Visit for monitoring Rituxan therapy 06/30/2016 09/01/2016 Testalgia, left 10/08/2015 10/27/2017 Cough 05/28/2015 03/22/2016 Psoriasis of scalp 12/26/2013 12/26/2013 Overview: Dermatology: Dr. Zach Velazquez. 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 10/14/2010 7 Hypersomnia with sleep apnea, unspecified 200310/22/2016 documented as of this encounter (statuses as of 12/30/2021) [facility] History of Past illness Narrative* Problem Noted Date Resolved Date Visit for monitoring Rituxan therapy 05/25/2017 08/31/2017 Visit for monitoring Rituxan therapy 06/30/2016 09/01/2016 Testalgia, left 10/08/2015 10/27/2017 Cough 05/28/2015 03/22/2016 Psoriasis of scalp 12/26/2013 12/26/2013 Overview: Dermatology: Dr. Zach Velazquez. 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 10/14/2010 7 Hypersomnia with sleep apnea, unspecified 200310/22/2016 documented as of this encounter (statuses as of 01/18/2022) [facility] History of Past illness Narrative* Problem Noted Date Resolved Date Visit for monitoring Rituxan therapy 05/25/2017 08/31/2017 Visit for monitoring Rituxan therapy 06/30/2016 09/01/2016 Testalgia, left 10/08/2015 10/27/2017 Cough 05/28/2015 03/22/2016 Psoriasis of scalp 12/26/2013 12/26/2013 Overview: Dermatology: Dr. Zach Velazquez. 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 10/14/2010 7 Hypersomnia with sleep apnea, unspecified 200310/22/2016 documented as of this encounter (statuses as of 01/21/2022) [facility] History of Past illness Narrative* Problem Noted Date Resolved Date Visit for monitoring Rituxan therapy 05/25/2017 08/31/2017 Visit for monitoring Rituxan therapy 06/30/2016 09/01/2016 Testalgia, left 10/08/2015 10/27/2017 Cough 05/28/2015 03/22/2016 Psoriasis of scalp 12/26/2013 12/26/2013 Overview: Dermatology: Dr. Zach Velazquez. 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 10/14/2010 7 Hypersomnia with sleep apnea, unspecified 200310/22/2016 documented as of this encounter (statuses as of 01/26/2022) [facility] History of Past illness Narrative* Problem Noted Date Resolved Date Visit for monitoring Rituxan therapy 05/25/2017 08/31/2017 Visit for monitoring Rituxan therapy 06/30/2016 09/01/2016 Testalgia, left 10/08/2015 10/27/2017 Cough 05/28/2015 03/22/2016 Psoriasis of scalp 12/26/2013 12/26/2013 Overview: Dermatology: Dr. Zach Velazquez. 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 10/14/2010 7 Hypersomnia with sleep apnea, unspecified 200310/22/2016 documented as of this encounter (statuses as of 01/27/2022) [facility]04[facility]2018 History of Past illness Narrative* Problem Noted Date Resolved Date Visit for monitoring Rituxan therapy 05/25/2017 08/31/2017 Visit for monitoring Rituxan therapy 06/30/2016 09/01/2016 Testalgia, left 10/08/2015 10/27/2017 Cough 05/28/2015 03/22/2016 Psoriasis of scalp 12/26/2013 12/26/2013 Overview: Dermatology: Dr. Zach Velazquez. 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 10/14/2010 7 Hypersomnia with sleep apnea, unspecified 200310/22/2016 documented as of this encounter (statuses as of 01/29/2022) [facility]04[facility]2018 History of Past illness Narrative* Problem Noted Date Resolved Date Visit for monitoring Rituxan therapy 05/25/2017 08/31/2017 Visit for monitoring Rituxan therapy 06/30/2016 09/01/2016 Testalgia, left 10/08/2015 10/27/2017 Cough 05/28/2015 03/22/2016 Psoriasis of scalp 12/26/2013 12/26/2013 Overview: Dermatology: Dr. Zach Velazquez. 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 10/14/2010 7 Hypersomnia with sleep apnea, unspecified 200310/22/2016 documented as of this encounter (statuses as of 02/25/2022) [facility]04[facility]2018 History of Past illness Narrative* Problem Noted Date Resolved Date Visit for monitoring Rituxan therapy 05/25/2017 08/31/2017 Visit for monitoring Rituxan therapy 06/30/2016 09/01/2016 Testalgia, left 10/08/2015 10/27/2017 Cough 05/28/2015 03/22/2016 Psoriasis of scalp 12/26/2013 12/26/2013 Overview: Dermatology: Dr. Zach Velazquez. 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 10/14/2010 7 Hypersomnia with sleep apnea, unspecified 200310/22/2016 documented as of this encounter (statuses as of 02/25/2022) [facility]2018 History of Past illness Narrative* Problem Noted Date Resolved Date Visit for monitoring Rituxan therapy 05/25/2017 08/31/2017 Visit for monitoring Rituxan therapy 06/30/2016 09/01/2016 Testalgia, left 10/08/2015 10/27/2017 Cough 05/28/2015 03/22/2016 Psoriasis of scalp 12/26/2013 12/26/2013 Overview: Dermatology: Dr. Zach Velazquez. 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 10/14/2010 7 Hypersomnia with sleep apnea, unspecified 200310/22/2016 documented as of this encounter (statuses as of 03/18/2022) [facility] History of Past illness Narrative* Problem Noted Date Resolved Date Visit for monitoring Rituxan therapy 05/25/2017 08/31/2017 Visit for monitoring Rituxan therapy 06/30/2016 09/01/2016 Testalgia, left 10/08/2015 10/27/2017 Cough 05/28/2015 03/22/2016 Psoriasis of scalp 12/26/2013 12/26/2013 Overview: Dermatology: Dr. Zach Velazquez. 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 10/14/2010 7 Hypersomnia with sleep apnea, unspecified 200310/22/2016 documented as of this encounter (statuses as of 03/18/2022) [facility]04[facility]2018 History of Past illness Narrative* Problem Noted Date Resolved Date Visit for monitoring Rituxan therapy 05/25/2017 08/31/2017 Visit for monitoring Rituxan therapy 06/30/2016 09/01/2016 Testalgia, left 10/08/2015 10/27/2017 Cough 05/28/2015 03/22/2016 Psoriasis of scalp 12/26/2013 12/26/2013 Overview: Dermatology: Dr. Zach Velazquez. 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 10/14/2010 7 Hypersomnia with sleep apnea, unspecified 200310/22/2016 documented as of this encounter (statuses as of 03/24/2022) [facility]2018 History of Past illness Narrative* Problem Noted Date Resolved Date Visit for monitoring Rituxan therapy 05/25/2017 08/31/2017 Visit for monitoring Rituxan therapy 06/30/2016 09/01/2016 Testalgia, left 10/08/2015 10/27/2017 Cough 05/28/2015 03/22/2016 Psoriasis of scalp 12/26/2013 12/26/2013 Overview: Dermatology: Dr. Zach Velazquez. 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 10/14/2010 7 Hypersomnia with sleep apnea, unspecified 200310/22/2016 documented as of this encounter (statuses as of 04/15/2022) [facility]2018 History of Past illness Narrative* Problem Noted Date Resolved Date Visit for monitoring Rituxan therapy 05/25/2017 08/31/2017 Visit for monitoring Rituxan therapy 06/30/2016 09/01/2016 Testalgia, left 10/08/2015 10/27/2017 Cough 05/28/2015 03/22/2016 Psoriasis of scalp 12/26/2013 12/26/2013 Overview: Dermatology: Dr. Zcah Velazquez. 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 10/14/2010 7 Hypersomnia with sleep apnea, unspecified 200310/22/2016 documented as of this encounter (statuses as of 04/20/2022) [facility] History of Past illness Narrative* Problem Noted Date Resolved Date Visit for monitoring Rituxan therapy 05/25/2017 08/31/2017 Visit for monitoring Rituxan therapy 06/30/2016 09/01/2016 Testalgia, left 10/08/2015 10/27/2017 Cough 05/28/2015 03/22/2016 Psoriasis of scalp 12/26/2013 12/26/2013 Overview: Dermatology: Dr. Zach Velazquez. 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 10/14/2010 7 Hypersomnia with sleep apnea, unspecified 200310/22/2016 documented as of this encounter (statuses as of 04/22/2022) [facility] History of Past illness Narrative* Problem Noted Date Resolved Date Visit for monitoring Rituxan therapy 05/25/2017 08/31/2017 Visit for monitoring Rituxan therapy 06/30/2016 09/01/2016 Testalgia, left 10/08/2015 10/27/2017 Cough 05/28/2015 03/22/2016 Psoriasis of scalp 12/26/2013 12/26/2013 Overview: Dermatology: Dr. Zach eVlazquez. 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 10/14/2010 7 Hypersomnia with sleep apnea, unspecified 200310/22/2016 documented as of this encounter (statuses as of 04/27/2022) [facility]2018 History of Past illness Narrative* Problem Noted Date Resolved Date Visit for monitoring Rituxan therapy 05/25/2017 08/31/2017 Visit for monitoring Rituxan therapy 06/30/2016 09/01/2016 Testalgia, left 10/08/2015 10/27/2017 Cough 05/28/2015 03/22/2016 Psoriasis of scalp 12/26/2013 12/26/2013 Overview: Dermatology: Dr. Zach Velazquez. 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 10/14/2010 7 Hypersomnia with sleep apnea, unspecified 200310/22/2016 documented as of this encounter (statuses as of 05/03/2022) [facility] History of Past illness Narrative* Problem Noted Date Resolved Date Visit for monitoring Rituxan therapy 05/25/2017 08/31/2017 Visit for monitoring Rituxan therapy 06/30/2016 09/01/2016 Testalgia, left 10/08/2015 10/27/2017 Cough 05/28/2015 03/22/2016 Psoriasis of scalp 12/26/2013 12/26/2013 Overview: Dermatology: Dr. Zach Velazquez. 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 10/14/2010 7 Hypersomnia with sleep apnea, unspecified 200310/22/2016 documented as of this encounter (statuses as of 05/18/2022) [facility] History of Past illness Narrative* Problem Noted Date Resolved Date Visit for monitoring Rituxan therapy 05/25/2017 08/31/2017 Visit for monitoring Rituxan therapy 06/30/2016 09/01/2016 Testalgia, left 10/08/2015 10/27/2017 Cough 05/28/2015 03/22/2016 Psoriasis of scalp 12/26/2013 12/26/2013 Overview: Dermatology: Dr. Zach Velazquez. 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 10/14/2010 7 Hypersomnia with sleep apnea, unspecified 200310/22/2016 documented as of this encounter (statuses as of 06/16/2022) [facility] History of Past illness Narrative* Problem Noted Date Resolved Date Visit for monitoring Rituxan therapy 05/25/2017 08/31/2017 Visit for monitoring Rituxan therapy 06/30/2016 09/01/2016 Testalgia, left 10/08/2015 10/27/2017 Cough 05/28/2015 03/22/2016 Psoriasis of scalp 12/26/2013 12/26/2013 Overview: Dermatology: Dr. Zach Velazquez. 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 10/14/2010 7 Hypersomnia with sleep apnea, unspecified 200310/22/2016 documented as of this encounter (statuses as of 06/23/2022) [facility] note* Diagnosis Rheumatoid arthritis involving multiple sites with positive rheumatoid factor (HCC)- Primary High risk medication use Encounter for long-term (current) use of other medications Long-term use of Plaquenil Encounter for long-term (current) use of other medications [facility] Diagnosis Essential hypertension- Primary Unspecified essential hypertension [facility]* Diagnosis Generalized osteoarthrosis Generalized osteoarthrosis, unspecified site Rheumatoid arthritis involving multiple sites with positive rheumatoid factor (HCC) [facility] Diagnosis Cough- Primary Bacterial pneumonia Bacterial pneumonia, unspecified Abnormal x-ray of lungs with single pulmonary nodule [facility] Diagnosis Encounter for prophylactic measures, unspecified- Primary [facility] Diagnosis Cough- Primary [facility] Diagnosis Pneumonia of right lung due to infectious organism, unspecified part of lung- Primary Lung nodules Other nonspecific abnormal finding of lung field Renal insufficiency Unspecified disorder of kidney and ureter Anemia, unspecified type [facility] Lung nodules Other nonspecific abnormal finding of lung field [facility]* Diagnosis Anemia, unspecified type- Primary Abnormal CT of the chest Nonspecific (abnormal) findings on radiological and other examination of other intrathoracic organs Rheumatoid arthritis involving multiple sites with positive rheumatoid factor (HCC) [facility] Rheumatoid arthritis involving multiple sites with positive rheumatoid factor (HCC)- Primary High risk medication use Encounter for long-term (current) use of other medications Long-term use of Plaquenil Encounter for long-term (current) use of other medications Cough [facility]* Diagnosis Positive fecal occult blood test- Primary Nonspecific abnormal finding in stool contents Anemia, unspecified type Ground glass opacity present on imaging of lung Pneumonia Pneumonia, organism unspecified [facility]* Diagnosis Ground glass opacity present on imaging of lung- Primary Rheumatoid arthritis involving multiple sites with positive rheumatoid factor (HCC) Ground glass opacity present on imaging of lung Pneumonia Pneumonia, organism unspecified [facility]* Diagnosis Pre-operative examination- Primary Preoperative examination, unspecified Ground glass opacity present on imaging of lung Former smoker Personal history of tobacco use, presenting hazards to health Mild intermittent asthma without complication Unspecified asthma Rheumatoid arthritis involving multiple sites with positive rheumatoid factor (HCC) Essential hypertension Unspecified essential hypertension Gastroesophageal reflux disease, unspecified whether esophagitis present Viral pneumonia Viral pneumonia, unspecified Anemia, unspecified type Benign prostatic hyperplasia without lower urinary tract symptoms RENETTA (obstructive sleep apnea) Obstructive sleep apnea (adult) (pediatric) Ground glass opacity present on imaging of lung Pneumonia Pneumonia, organism unspecified [facility]* Diagnosis SOB (shortness of breath) on exertion- Primary Shortness of breath Positive fecal occult blood test Nonspecific abnormal finding in stool contents Anemia, unspecified type Ground glass opacity present on imaging of lung Pneumonia Pneumonia, organism unspecified [facility]* Diagnosis Rheumatoid arthritis involving multiple sites with positive rheumatoid factor (HCC) [facility] Diagnosis Essential hypertension Unspecified essential hypertension [facility]* Diagnosis Hypogammaglobulinemia (HCC)- Primary Hypogammaglobulinaemia, unspecified Recurrent infections Unspecified infectious and parasitic diseases [facility] Diagnosis Ground glass opacity present on imaging of lung- Primary Dyspnea and respiratory abnormalities Other dyspnea and respiratory abnormality Diarrhea, unspecified type Rheumatoid arthritis involving multiple sites with positive rheumatoid factor (HCC) [facility]* Diagnosis Edema of both legs- Primary Edema Gastroesophageal reflux disease, unspecified whether esophagitis present Renal insufficiency Unspecified disorder of kidney and ureter Diarrhea, unspecified type [facility] Diagnosis Edema of both legs- Primary Edema Essential hypertension Unspecified essential hypertension Diarrhea, unspecified type Need for COVID-19 vaccine [facility]* Diagnosis Rheumatoid arthritis involving multiple sites with positive rheumatoid factor (HCC)- Primary [facility]* Diagnosis Edema of both legs Edema [facility] Diagnosis Rheumatoid arthritis involving multiple sites with positive rheumatoid factor (HCC)- Primary [facility] Diagnosis Rheumatoid arthritis involving multiple sites with positive rheumatoid factor (HCC)- Primary High risk medication use Encounter for long-term (current) use of other medications Long-term use of Plaquenil Encounter for long-term (current) use of other medications Osteoporosis screening Special screening for osteoporosis Vitamin D deficiency Unspecified vitamin D deficiency Age-related osteoporosis without current pathological fracture Senile osteoporosis [facility] Diagnosis Edema of both legs- Primary Edema Diarrhea, unspecified type [facility]* Diagnosis Positive fecal occult blood test- Primary Nonspecific abnormal finding in stool contents Anemia, unspecified type [facility]* Diagnosis Rheumatoid arthritis involving multiple sites with positive rheumatoid factor (HCC) High risk medication use Encounter for long-term (current) use of other medications Long-term use of Plaquenil Encounter for long-term (current) use of other medications Osteoporosis screening Special screening for osteoporosis Age-related osteoporosis without current pathological fracture Senile osteoporosis [facility] Diagnosis Anemia, unspecified type- Primary Rheumatoid arthritis involving multiple sites with positive rheumatoid factor (HCC) [facility] Diagnosis Positive fecal occult blood test- Primary Nonspecific abnormal finding in stool contents Anemia, unspecified type [facility] Diagnosis Rheumatoid arthritis involving multiple sites with positive rheumatoid factor (HCC)- Primary [facility]* Diagnosis Collagenous colitis- Primary Other and unspecified noninfectious gastroenteritis and colitis [facility] Diagnosis Collagenous colitis- Primary Other and unspecified noninfectious gastroenteritis and colitis Anemia, unspecified type Inflammation of small intestine Other and unspecified noninfectious gastroenteritis and colitis Inflammatory bowel disease Other and unspecified noninfectious gastroenteritis and colitis documented in this encounter [facility] note* Diagnosis Hypogammaglobulinemia (HCC)- Primary Hypogammaglobulinaemia, unspecified Rheumatoid arthritis involving multiple sites with positive rheumatoid factor (HCC) documented [facility]* Diagnosis Inflammation of small intestine- Primary Other and unspecified noninfectious gastroenteritis and colitis Inflammatory bowel disease Other and unspecified noninfectious gastroenteritis and colitis documented in [facility]* Diagnosis Renal insufficiency- Primary Unspecified disorder of kidney and ureter Collagenous colitis Other and unspecified noninfectious gastroenteritis and colitis Chronic diarrhea Diarrhea [facility]* Diagnosis Rheumatoid arthritis involving multiple sites with positive rheumatoid factor (HCC)- Primary [facility] Diagnosis Inflammation of small intestine Other and unspecified noninfectious gastroenteritis and colitis Inflammatory bowel disease Other and unspecified noninfectious gastroenteritis and colitis documented in this [facility]* Diagnosis Collagenous colitis Other and unspecified noninfectious gastroenteritis and colitis documented in this [facility]* Diagnosis Contact dermatitis, unspecified contact dermatitis type, unspecified trigger documented [facility] this [facility]* Diagnosis Collagenous colitis- Primary Other and unspecified noninfectious gastroenteritis and colitis Anemia, unspecified type [facility] Diagnosis Essential hypertension Unspecified essential hypertension [facility] Diagnosis Rheumatoid arthritis involving multiple sites with positive rheumatoid factor (HCC)- Primary [facility]* Diagnosis Atrial fibrillation, unspecified type (HCC)- Primary Hypogammaglobulinemia (HCC) Hypogammaglobulinaemia, unspecified Essential hypertension Unspecified essential hypertension documented [facility]* Diagnosis Collagenous colitis- Primary Other and unspecified noninfectious gastroenteritis and colitis documented [facility]* Diagnosis Rheumatoid arthritis involving multiple sites with positive rheumatoid factor (HCC)- Primary [facility]* Diagnosis Medicare annual wellness visit, subsequent- Primary Routine general medical examination at a health care facility Cardiomyopathy, unspecified type (HCC) Stage 3 chronic kidney disease, unspecified whether stage 3a or 3b CKD (HCC) Atrial fibrillation, unspecified type (HCC) Essential hypertension Unspecified essential hypertension Atherosclerosis of wiyot coronary artery of wiyot heart without angina pectoris Lumbar radiculopathy Thoracic or lumbosacral neuritis or radiculitis, unspecified History of TIA (transient ischemic attack) Transient ischemic attack (TIA), and cerebral infarction without residual deficits [facility] Diagnosis Rheumatoid arthritis involving multiple sites with positive rheumatoid factor (HCC)- Primary [facility] Diagnosis Rheumatoid arthritis involving multiple sites with positive rheumatoid factor (HCC) documented [facility] Diagnosis Rheumatoid arthritis involving multiple sites with positive rheumatoid factor (HCC)- Primary [facility]* Diagnosis Rheumatoid arthritis involving multiple sites with positive rheumatoid factor (HCC)- Primary Long-term use of Plaquenil Encounter for long-term (current) use of other medications [facility]* Diagnosis Atrial fibrillation, unspecified type (HCC)- Primary Cardiomyopathy, unspecified type (HCC) Essential hypertension Unspecified essential hypertension [facility]* Diagnosis Essential hypertension Unspecified essential hypertension [facility] Diagnosis Rheumatoid arthritis involving multiple sites with positive rheumatoid factor (HCC)- Primary [facility]* Diagnosis Collagenous colitis- Primary Other and unspecified noninfectious gastroenteritis and colitis documented in this encounter [facility] for referral (narrative)* Outpatient Procedure (Routine) - Authorized Specialty Diagnoses / Procedures Referred By Nikki mcclellan Referred To [facility] Diagnoses Rheumatoid arthritis involving multiple sites with positive rheumatoid factor (HCC) Ground glass opacity present on imaging of lung Dyspnea and respiratory abnormalities Procedures SPIROMETRY - BASELINE AND POST DILATOR BRNCDILAT RSPSE SPMTRY PRE&POST-BRNCDILAT Libra Mathew PA-C [address] [facility] [address] [place] [address] Respiratory [place] [address] [place] [address] Referral ID Status Reason Start Date Expiration Date Visits Requested Visits Authorized [id number] Authorized Auto-Generat ed Referral 08/06/2021 09/05/2022 1 1 [facility] for referral (narrative)* Diagnostic Procedure Only (Routine) - Authorized Specialty Diagnoses / Procedures Referred By Contac t Referred To Contact US IMAGING Diagnoses Edema of both legs Procedures US DVT LOWER BILAT DUP-SCAN XTR VEINS COMPLETE BILATERAL STUDY Santino Long MD [address] [place] [address] Us Imaging Referral ID Status Reason Start Date Expiration Date Visits Requested Visits Authorized [id number] Authorized Auto-Generat ed Referral 08/28/2021 09/27/2022 1 1 [facility] for referral (narrative)* Diagnostic Procedure Only (Routine) - Closed Specialty Diagnoses / Procedures Referred By Contac t Referred To Contact US IMAGING Diagnoses Edema of both legs Procedures US DVT LOWER BILAT DUP-SCAN XTR VEINS COMPLETE BILATERAL STUDY Santino Long MD [address] [place] [address] Us Imaging Referral ID Status Reason Start Date Expiration Date V isits Requested Visits Authorized [id number] Closed Auto-Generate d Referral 08/28/2021 09/27/2022 1 1 [facility] for referral (narrative)* Outpatient Procedure (Routine) - Pending Review Specialty Diagnoses / Procedures Referred By Contac t Referred To [facility] Diagnoses Positive fecal occult blood test Anemia, unspecified type Procedures COLONOSCOPY DIAGNOSTIC COLONOSCOPY FLX DX W/COLLJ SPEC WHEN PFRMD Umang Guidry MD [address] [place] [address] [address] Referral ID Status Reason Start Date Expiration Date Visits Requested Visits Authorized [id number] Pending Review Auto-Generat ed Referral 10/20/2021 10/20/2022 1 1 * Outpatient Procedure (Routine) - Pending Review Specialty Diagnoses / Procedures Referred By Nikki t Referred To Contact [facility] Diagnoses Anemia, unspecified type Procedures EGD DIAGNOSTIC ESOPHAGOGASTRODUODENOSC OPY TRANSORAL DIAGNOSTIC Umang Guidry MD [address] [place] [address] [address] Referral ID Status Reason Start Date Expiration Date Visits Requested Visits Authorized [id number] Pending Review Auto-Generat ed Referral 10/20/2021 10/20/2022 1 1 [facility] for referral (narrative)* Outpatient Procedure (Routine) - Closed Specialty Diagnoses / Procedures Referred By Nikki mcclellan Referred To [facility] Diagnoses Positive fecal occult blood test Anemia, unspecified type Procedures COLONOSCOPY DIAGNOSTIC COLONOSCOPY FLX DX W/COLLJ SPEC WHEN PFRMD Umang Guidry MD [address] [place] [address] [address] Referral ID Status Reason Start Date Expiration Date V isits Requested Visits Authorized [id number] Closed Auto-Generate d Referral 10/20/2021 10/20/2022 1 1 * Outpatient Procedure (Routine) - Closed Specialty Diagnoses / Procedures Referred By Nikki t Referred To [facility] Diagnoses Anemia, unspecified type Procedures EGD DIAGNOSTIC ESOPHAGOGASTRODUODENOSC OPY TRANSORAL DIAGNOSTIC Umang Guidry MD [address] [place] [address] [facility] [place] [address] [place] [address] Referral ID Status Reason Start Date Expiration Date V isits Requested Visits Authorized [id number] Closed Auto-Generate d Referral 10/20/2021 10/20/2022 1 1 [facility] for visit Narrative* Outpatient Procedure (Routine) - Closed Specialty Diagnoses / Procedures Referred By Contac t Referred To [facility] Diagnoses Positive fecal occult blood test Anemia, unspecified type Procedures COLONOSCOPY DIAGNOSTIC COLONOSCOPY FLX DX W/COLLJ SPEC WHEN PFRMD Umang Guidry MD [address] [place] [address] [id number] [place] [address] Referral ID Status Reason Start Date Expiration Date V isits Requested Visits Authorized [id number] Closed Auto-Generate d Referral 10/20/2021 10/20/2022 1 1 [facility] Reason for Referral Specialty Diagnoses / Procedures Referred By Contac t Referred To Contact CT IMAGING Diagnoses Lung nodules Procedures CT CHEST WO IVCON DIAGNOSTIC COMPUTED TOMOGRAPHY THORAX W/O CNTRST 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, 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, 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 [employer]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 [address] [place] [address] Ct Imaging Referral ID Status Reason Start Date Expiration Date Visits Requested Visits Authorized [id number] Authorized Auto-Generat ed Referral 06/30/2021 07/12/2022 1 1 Referral ID Status Reason Start Date Expiration Date V isits Requested Visits Authorized [id number] Closed Auto-Generate d Referral 06/30/2021 07/12/2022 1 1 Specialty Diagnoses / Procedures Referred By Contac t Referred To Contact [facility] Diagnoses Positive fecal occult blood test Anemia, unspecified type Procedures CONSULT TO GENERAL SURGERY OFFICE/OUTPATIENT [facility] MDM 60-74 MINUTES Older, 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, 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 [employer]ARM [address] [place] [address] Referral ID Status Reason Start Date Expiration Date Visits Requested Visits Authorized [id number] Authorized PCP Requested Referral 07/01/2021 07/01/2022 1 1 Specialty Diagnoses / Procedures Referred By Contac t Referred To Contact Umang Guidry MD [address] [place] [address] Referral ID Status Reason Start Date Expiration Date V isits Requested Visits Authorized [id number] Pending Review 1 1 Specialty Diagnoses / Procedures Referred By Contac t Referred To Contact CT IMAGING Diagnoses Inflammation of small intestine Inflammatory bowel disease Procedures CT ENTEROGRAPHY W IVCON CT ABD & PELVIS W/CONTRAST Tana Gongora PA-C [address] [place] [address] Ct Imaging Referral ID Status Reason Start Date Expiration Date Visits Requested Visits Authorized [id number] Authorized Auto-Generat ed Referral 01/21/2022 02/20/2023 1 1 Specialty Diagnoses / Procedures Referred By Contac t Referred To Contact [facility] IMAG[facility] Diagnoses Inflammation of small intestine Inflammatory bowel disease Procedures MRI PEL ENTEROG WO/W IVCON MRI PELVIS W/O & W/CONTRAST MATERIAL Tana Gongora PA-C [address] [place] [address] Mr Imaging Referral ID Status Reason Start Date Expiration Date Visits Requested Visits Authorized [id number] Pending Review Auto-Generat ed Referral 01/27/2022 02/26/2023 1 1 Specialty Diagnoses / Procedures Referred By Contac t Referred To Contact [facility] IMAG[facility] Diagnoses Inflammation of small intestine Inflammatory bowel disease Procedures MRI ABD ENTEROG WO/W IVCON MRI ABDOMEN W/O & W/CONTRAST MATERIAL MRI PELVIS W/O & W/CONTRAST MATERIAL Tana Gongora PA-C [address] [place] [address] Mr Imaging Referral ID Status Reason Start Date Expiration Date Visits Requested Visits Authorized [id number] Pending Review Auto-Generat ed Referral 01/27/2022 02/26/2023 1 1 Referral ID Status Reason Start Date Expiration Date V isits Requested Visits Authorized [id number] Closed Auto-Generate d Referral 01/27/2022 02/26/2023 1 1 Referral ID Status Reason Start Date Expiration Date V isits Requested Visits Authorized [id number] Closed Auto-Generate d Referral 01/27/2022 02/26/2023 1 1 Advance Directives Documents on File Type Date Recorded 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 New Bag/Syringe/Bottle 09/01/2021 3:17 PM EDT 750 mg 200 mL/hr Inactive Administered Medications - up to 3 most recent administrations Medication Order MAR Action Action Date Dose Rate Site abatacept 750 mg in NaCl 0.9% 100 mL (ORENCIA) 750 mg (set by rule on 08/10/2021 7:38 PM), INTRAVENOUS, at 200 mL/hr, Administer over 30 Minutes, ONCE, 1 dose, On Tue09/15/21 at 1500, Total Volume: 100 mL Administer with 0.2 micron filter. New Bag/Syringe/Bottle 09/15/2021 3:24 PM EDT 750 mg 200 mL/hr Inactive Administered Medications - up to 3 most recent administrations Medication Order MAR Action Action Date Dose Rate Site abatacept 750 mg in NaCl 0.9% 100 mL (ORENCIA) 750 mg (set by rule on 08/10/2021 7:38 PM), INTRAVENOUS, at 200 mL/hr, Administer over 30 Minutes, ONCE, 1 dose, On Tue11/03/21 at 1500, Total Volume: 100 mL Administer with 0.2 micron filter. New Bag/Syringe/Bottle 11/03/2021 3:12 PM EDT 750 mg 200 mL/hr Inactive Administered Medications - up to 3 most recent administrations Medication Order MAR Action Action Date Dose Rate Site lactated ringers iv infusion 30 mL/hr, INTRAVENOUS, CONTINUOUS, Starting on Tue11/18/21 at 1000, Until Tue11/18/21 at 1228, Preprocedure Restarted 11/18/2021 11:21 AM EDT Inactive Administered Medications - up to 3 most recent administrations Medication Order MAR Action Action Date Dose Rate Site abatacept 750 mg in NaCl 0.9% 100 mL (ORENCIA) 750 mg (set by rule on 08/10/2021 7:38 PM), INTRAVENOUS, at 200 mL/hr, Administer over 30 Minutes, ONCE, 1 dose, On Tue12/01/21 at 1430, TOTAL VOLUME - Expires: 12/02/21 @ 1410 Administer with 0.2 micron filter. New Bag/Syringe/Bottle 12/01/2021 2:35 PM EDT 750 mg 200 mL/hr Inactive Administered Medications - up to 3 most recent administrations Medication Order MAR Action Action Date Dose Rate Site abatacept 750 mg in NaCl 0.9% 100 mL (ORENCIA) 750 mg (set by rule on 08/10/2021 7:38 PM), INTRAVENOUS, at 200 mL/hr, Administer over 30 Minutes, ONCE, 1 dose, On Tue12/29/21 at 1530, Total Volume: 100 mL Administer with 0.2 micron filter. New Bag/Syringe/Bottle 12/29/2021 3:30 PM EST 750 mg 200 mL/hr Inactive Administered Medications - up to 3 most recent administrations Medication Order MAR Action Action Date Dose Rate Site abatacept 750 mg in NaCl 0.9% 100 mL (ORENCIA) 750 mg (set by rule on 08/10/2021 7:38 PM), INTRAVENOUS, at 200 mL/hr, Administer over 30 Minutes, ONCE, 1 dose, On Tue01/26/22 at 1400, Total Volume: 100 mL Administer with 0.2 micron filter. New Bag/Syringe/Bottle 01/26/2022 2:17 PM EST 750 mg 200 mL/hr Inactive Administered Medications - up to 3 most recent administrations Medication Order MAR Action Action Date Dose Rate Site abatacept 750 mg in NaCl 0.9% 100 mL (ORENCIA) 750 mg (set by rule on 08/10/2021 7:38 PM), INTRAVENOUS, at 200 mL/hr, Administer over 30 Minutes, ONCE, 1 dose, On Tue02/23/22 at 1530, Total Volume: 100 mL Administer with 0.2 micron filter. New Bag/Syringe/Bottle 02/23/2022 3:43 PM EST 750 mg 200 mL/hr Inactive Administered Medications - up to 3 most recent administrations Medication Order MAR Action Action Date Dose Rate Site abatacept 750 mg in NaCl 0.9% 100 mL (ORENCIA) 750 mg (set by rule on 08/10/2021 7:38 PM), INTRAVENOUS, at 200 mL/hr, Administer over 30 Minutes, ONCE, 1 dose, On Tue03/23/22 at 1500, Total Volume: 100 mL Administer with 0.2 micron filter. New Bag/Syringe/Bottle 03/23/2022 3:17 PM EST 750 mg 200 mL/hr Inactive Administered Medications - up to 3 most recent administrations Medication Order MAR Action Action Date Dose Rate Site abatacept 750 mg in NaCl 0.9% 100 mL (ORENCIA) 750 mg (set by rule on 08/10/2021 7:38 PM), INTRAVENOUS, at 200 mL/hr, Administer over 30 Minutes, ONCE, 1 dose, On Tue05/18/22 at 1530, Total Volume: 100 mL Administer with 0.2 micron filter. New Bag/Syringe/Bottle 05/18/2022 3:25 PM EDT 750 mg 200 mL/hr Inactive Administered Medications - up to 3 most recent administrations Medication Order MAR Action Action Date Dose Rate Site abatacept 750 mg in NaCl 0.9% 100 mL (ORENCIA) 750 mg (set by rule on 08/10/2021 7:38 PM), INTRAVENOUS, at 200 mL/hr, Administer over 30 Minutes, ONCE, 1 dose, On Tue06/15/22 at 1600, Total Volume: 100 mL Administer with 0.2 micron filter. New Bag/Syringe/Bottle 06/15/2022 3:52 PM EDT 750 mg 200 mL/hr Inactive Administered Medications - up to 3 most recent administrations Medication Order MAR Action Action Date Dose Rate Site abatacept 750 mg in NaCl 0.9% 100 mL (ORENCIA) 750 mg (set by rule on 08/10/2021 7:38 PM), INTRAVENOUS, at 200 mL/hr, Administer over 30 Minutes, ONCE, 1 dose, On Tue07/13/22 at 1500, Total Volume: 100 mL Administer with 0.2 micron filter. New Bag/Syringe/Bottle 07/13/2022 3:09 PM EDT 750 mg 200 mL/hr Inactive Administered Medications - up to 3 most recent administrations Medication Order MAR Action Action Date Dose Rate Site abatacept 750 mg in NaCl 0.9% 100 mL (ORENCIA) 750 mg (set by rule on 08/06/2022 11:36 AM), INTRAVENOUS, at 200 mL/hr, Administer over 30 Minutes, ONCE, 1 dose, On Tue08/17/22 at 1330, Total Volume: 100 mL 08/18/22 1400 Administer with 0.2 micron filter. New Bag/Syringe/Bottle 08/17/2022 2:08 PM EDT 750 mg 200 mL/hr Inactive Administered Medications - up to 3 most recent administrations Medication Order MAR Action Action Date Dose Rate Site abatacept 750 mg in NaCl 0.9% 100 mL (ORENCIA) 750 mg (set by rule on 10/08/2022 12:06 PM), INTRAVENOUS, Administer over 30 Minutes, ONCE, 1 dose, On Tue10/12/22 at 1500, Total Volume: 100 mL Administer with 0.2 micron filter. New Bag/Syringe/Bottle 10/12/2022 3:22 PM EDT 750 mg Inactive Administered Medications - up to 3 most recent administrations Medication Order MAR Action Action Date Dose Rate Site abatacept 750 mg in NaCl 0.9% 100 mL (ORENCIA) 750 mg (set by rule on 10/08/2022 12:06 PM), INTRAVENOUS, Administer over 30 Minutes, ONCE, 1 dose, On Tue11/19/22 at 1330, Total Volume: 100 mL exp 129911/20/22 (room temp) Administer with 0.2 micron filter. New Bag/Syringe/Bottle 11/19/2022 1:46 PM EDT 750 mg Inactive Administered Medications - up to 3 most recent administrations Medication Order MAR Action Action Date Dose Rate Site acetaminophen 1,000 mg tab(s) (TYLENOL) 1,000 mg, ORAL, ONCE, 1 dose, On Tue01/24/23 at 0800, No more than 4000 mg of acetaminophen should be given per day (FROM ALL SOURCES), If ordered PRN for pain, patient/guardian may elect to receive this medication for higher pain levels INSTEAD of the opioid, if preferred: N/A Given 01/24/2023 8:09 AM EST 1,000 mg diphenhydrAMINE 50 mg (BENADRYL) 50 mg, ORAL, ONCE, 1 dose, On Tue01/24/23 at 0800 Given 01/24/2023 8:09 AM EST 50 mg methylPREDNISolone sod succinate(PF) 125 mg injection (SOLU-Medrol) 125 mg, INTRAVENOUS, ONCE, 1 dose, On Tue01/24/23 at 0800 Given 01/24/2023 8:13 AM EST 125 mg riTUXimab-pvvr 1,000 mg in NaCl 0.9% 640 mL (RUXIENCE) 1,000 mg, INTRAVENOUS, ONCE, 1 dose, On Tue01/24/23 at 0800, exp 02/03/23 @ 1000 (refrigerated) Infuse at rate of 50mg/hr. If no hypotension, increase rate every 30 minutes by 50mg/hr to a maximum rate of 400mg/hr. Refrigerate. Rate/Dose Change 01/24/2023 12:13 PM EST 256 mL/hr Summary Purpose Family History No Family History Records FoundNo Family History Records Found Additional Source Comments Source Comments (unrecognize d section and content) In the event this informatio n is protected by the Federal Confidentiality of Alcohol and Drug Abuse Patient Records regulations: The Federal rules restrict any use of the information to criminally investigate or prosecute any alcohol or drug abuse patient.[facility] CenterIn the event this information is protected by the Federal Confidentiality of Alcohol and Drug Abuse Patient Records regulations: The Federal rules restrict any use of the information to criminally investigate or prosecute any alcohol or drug abuse patient.[facility] CenterIn the event this information is protected by the Federal Confidentiality of Alcohol and Drug Abuse Patient Records regulations: The Federal rules restrict any use of the information to criminally investigate or prosecute any alcohol or drug abuse patient.[facility] CenterIn the event this information is protected by the Federal Confidentiality of Alcohol and Drug Abuse Patient Records regulations: The Federal rules restrict any use of the information to criminally investigate or prosecute any alcohol or drug abuse patient.[facility] CenterIn the event this information is protected by the Federal Confidentiality of Alcohol and Drug Abuse Patient Records regulations: The Federal rules restrict any use of the information to criminally investigate or prosecute any alcohol or drug abuse patient.[facility] CenterIn the event this information is protected by the Federal Confidentiality of Alcohol and Drug Abuse Patient Records regulations: The Federal rules restrict any use of the information to criminally investigate or prosecute any alcohol or drug abuse patient.[facility] CenterIn the event this information is protected by the Federal Confidentiality of Alcohol and Drug Abuse Patient Records regulations: The Federal rules restrict any use of the information to criminally investigate or prosecute any alcohol or drug abuse patient.[facility] CenterIn the event this information is protected by the Federal Confidentiality of Alcohol and Drug Abuse Patient Records regulations: The Federal rules restrict any use of the information to criminally investigate or prosecute any alcohol or drug abuse patient.[facility] CenterIn the event this information is protected by the Federal Confidentiality of Alcohol and Drug Abuse Patient Records regulations: The Federal rules restrict any use of the information to criminally investigate or prosecute any alcohol or drug abuse patient.[facility] CenterIn the event this information is protected by the Federal Confidentiality of Alcohol and Drug Abuse Patient Records regulations: The Federal rules restrict any use of the information to criminally investigate or prosecute any alcohol or drug abuse patient.[facility] CenterIn the event this information is protected by the Federal Confidentiality of Alcohol and Drug Abuse Patient Records regulations: The Federal rules restrict any use of the information to criminally investigate or prosecute any alcohol or drug abuse patient.[facility] CenterIn the event this information is protected by the Federal Confidentiality of Alcohol and Drug Abuse Patient Records regulations: The Federal rules restrict any use of the information to criminally investigate or prosecute any alcohol or drug abuse patient.[facility] CenterIn the event this information is protected by the Federal Confidentiality of Alcohol and Drug Abuse Patient Records regulations: The Federal rules restrict any use of the information to criminally investigate or prosecute any alcohol or drug abuse patient.[facility] CenterIn the event this information is protected by the Federal Confidentiality of Alcohol and Drug Abuse Patient Records regulations: The Federal rules restrict any use of the information to criminally investigate or prosecute any alcohol or drug abuse patient.[facility] CenterIn the event this information is protected by the Federal Confidentiality of Alcohol and Drug Abuse Patient Records regulations: The Federal rules restrict any use of the information to criminally investigate or prosecute any alcohol or drug abuse patient.[facility] CenterIn the event this information is protected by the Federal Confidentiality of Alcohol and Drug Abuse Patient Records regulations: The Federal rules restrict any use of the information to criminally investigate or prosecute any alcohol or drug abuse patient.[facility] CenterIn the event this information is protected by the Federal Confidentiality of Alcohol and Drug Abuse Patient Records regulations: The Federal rules restrict any use of the information to criminally investigate or prosecute any alcohol or drug abuse patient.[facility] CenterIn the event this information is protected by the Federal Confidentiality of Alcohol and Drug Abuse Patient Records regulations: The Federal rules restrict any use of the information to criminally investigate or prosecute any alcohol or drug abuse patient.[facility] CenterIn the event this information is protected by the Federal Confidentiality of Alcohol and Drug Abuse Patient Records regulations: The Federal rules restrict any use of the information to criminally investigate or prosecute any alcohol or drug abuse patient.[facility] CenterIn the event this information is protected by the Federal Confidentiality of Alcohol and Drug Abuse Patient Records regulations: The Federal rules restrict any use of the information to criminally investigate or prosecute any alcohol or drug abuse patient.[facility] CenterIn the event this information is protected by the Federal Confidentiality of Alcohol and Drug Abuse Patient Records regulations: The Federal rules restrict any use of the information to criminally investigate or prosecute any alcohol or drug abuse patient.[facility] CenterIn the event this information is protected by the Federal Confidentiality of Alcohol and Drug Abuse Patient Records regulations: The Federal rules restrict any use of the information to criminally investigate or prosecute any alcohol or drug abuse patient.[facility] CenterIn the event this information is protected by the Federal Confidentiality of Alcohol and Drug Abuse Patient Records regulations: The Federal rules restrict any use of the information to criminally investigate or prosecute any alcohol or drug abuse patient.[facility] CenterIn the event this information is protected by the Federal Confidentiality of Alcohol and Drug Abuse Patient Records regulations: The Federal rules restrict any use of the information to criminally investigate or prosecute any alcohol or drug abuse patient.[facility] CenterIn the event this information is protected by the Federal Confidentiality of Alcohol and Drug Abuse Patient Records regulations: The Federal rules restrict any use of the information to criminally investigate or prosecute any alcohol or drug abuse patient.[facility] CenterIn the event this information is protected by the Federal Confidentiality of Alcohol and Drug Abuse Patient Records regulations: The Federal rules restrict any use of the information to criminally investigate or prosecute any alcohol or drug abuse patient.[facility] CenterIn the event this information is protected by the Federal Confidentiality of Alcohol and Drug Abuse Patient Records regulations: The Federal rules restrict any use of the information to criminally investigate or prosecute any alcohol or drug abuse patient.[facility] CenterIn the event this information is protected by the Federal Confidentiality of Alcohol and Drug Abuse Patient Records regulations: The Federal rules restrict any use of the information to criminally investigate or prosecute any alcohol or drug abuse patient.[facility] CenterIn the event this information is protected by the Federal Confidentiality of Alcohol and Drug Abuse Patient Records regulations: The Federal rules restrict any use of the information to criminally investigate or prosecute any alcohol or drug abuse patient.[facility] CenterIn the event this information is protected by the Federal Confidentiality of Alcohol and Drug Abuse Patient Records regulations: The Federal rules restrict any use of the information to criminally investigate or prosecute any alcohol or drug abuse patient.[facility] CenterIn the event this information is protected by the Federal Confidentiality of Alcohol and Drug Abuse Patient Records regulations: The Federal rules restrict any use of the information to criminally investigate or prosecute any alcohol or drug abuse patient.[facility] CenterIn the event this information is protected by the Federal Confidentiality of Alcohol and Drug Abuse Patient Records regulations: The Federal rules restrict any use of the information to criminally investigate or prosecute any alcohol or drug abuse patient.[facility] CenterIn the event this information is protected by the Federal Confidentiality of Alcohol and Drug Abuse Patient Records regulations: The Federal rules restrict any use of the information to criminally investigate or prosecute any alcohol or drug abuse patient.[facility] CenterIn the event this information is protected by the Federal Confidentiality of Alcohol and Drug Abuse Patient Records regulations: The Federal rules restrict any use of the information to criminally investigate or prosecute any alcohol or drug abuse patient.[facility] CenterIn the event this information is protected by the Federal Confidentiality of Alcohol and Drug Abuse Patient Records regulations: The Federal rules restrict any use of the information to criminally investigate or prosecute any alcohol or drug abuse patient.[facility] CenterIn the event this information is protected by the Federal Confidentiality of Alcohol and Drug Abuse Patient Records regulations: The Federal rules restrict any use of the information to criminally investigate or prosecute any alcohol or drug abuse patient.[facility] CenterIn the event this information is protected by the Federal Confidentiality of Alcohol and Drug Abuse Patient Records regulations: The Federal rules restrict any use of the information to criminally investigate or prosecute any alcohol or drug abuse patient.[facility] CenterIn the event this information is protected by the Federal Confidentiality of Alcohol and Drug Abuse Patient Records regulations: The Federal rules restrict any use of the information to criminally investigate or prosecute any alcohol or drug abuse patient.[facility] CenterIn the event this information is protected by the Federal Confidentiality of Alcohol and Drug Abuse Patient Records regulations: The Federal rules restrict any use of the information to criminally investigate or prosecute any alcohol or drug abuse patient.[facility] CenterIn the event this information is protected by the Federal Confidentiality of Alcohol and Drug Abuse Patient Records regulations: The Federal rules restrict any use of the information to criminally investigate or prosecute any alcohol or drug abuse patient.[facility] CenterIn the event this information is protected by the Federal Confidentiality of Alcohol and Drug Abuse Patient Records regulations: The Federal rules restrict any use of the information to criminally investigate or prosecute any alcohol or drug abuse patient.[facility] CenterIn the event this information is protected by the Federal Confidentiality of Alcohol and Drug Abuse Patient Records regulations: The Federal rules restrict any use of the information to criminally investigate or prosecute any alcohol or drug abuse patient.[facility] CenterIn the event this information is protected by the Federal Confidentiality of Alcohol and Drug Abuse Patient Records regulations: The Federal rules restrict any use of the information to criminally investigate or prosecute any alcohol or drug abuse patient.[facility] CenterIn the event this information is protected by the Federal Confidentiality of Alcohol and Drug Abuse Patient Records regulations: The Federal rules restrict any use of the information to criminally investigate or prosecute any alcohol or drug abuse patient.[facility] CenterIn the event this information is protected by the Federal Confidentiality of Alcohol and Drug Abuse Patient Records regulations: The Federal rules restrict any use of the information to criminally investigate or prosecute any alcohol or drug abuse patient.[facility] CenterIn the event this information is protected by the Federal Confidentiality of Alcohol and Drug Abuse Patient Records regulations: The Federal rules restrict any use of the information to criminally investigate or prosecute any alcohol or drug abuse patient.[facility] CenterIn the event this information is protected by the Federal Confidentiality of Alcohol and Drug Abuse Patient Records regulations: The Federal rules restrict any use of the information to criminally investigate or prosecute any alcohol or drug abuse patient.[facility] CenterIn the event this information is protected by the Federal Confidentiality of Alcohol and Drug Abuse Patient Records regulations: The Federal rules restrict any use of the information to criminally investigate or prosecute any alcohol or drug abuse patient.[facility] CenterIn the event this information is protected by the Federal Confidentiality of Alcohol and Drug Abuse Patient Records regulations: The Federal rules restrict any use of the information to criminally investigate or prosecute any alcohol or drug abuse patient.[facility] CenterIn the event this information is protected by the Federal Confidentiality of Alcohol and Drug Abuse Patient Records regulations: The Federal rules restrict any use of the information to criminally investigate or prosecute any alcohol or drug abuse patient.[facility] CenterIn the event this information is protected by the Federal Confidentiality of Alcohol and Drug Abuse Patient Records regulations: The Federal rules restrict any use of the information to criminally investigate or prosecute any alcohol or drug abuse patient.[facility] CenterIn the event this information is protected by the Federal Confidentiality of Alcohol and Drug Abuse Patient Records regulations: The Federal rules restrict any use of the information to criminally investigate or prosecute any alcohol or drug abuse patient.[facility] CenterIn the event this information is protected by the Federal Confidentiality of Alcohol and Drug Abuse Patient Records regulations: The Federal rules restrict any use of the information to criminally investigate or prosecute any alcohol or drug abuse patient.[facility] CenterIn the event this information is protected by the Federal Confidentiality of Alcohol and Drug Abuse Patient Records regulations: The Federal rules restrict any use of the information to criminally investigate or prosecute any alcohol or drug abuse patient.[facility] CenterIn the event this information is protected by the Federal Confidentiality of Alcohol and Drug Abuse Patient Records regulations: The Federal rules restrict any use of the information to criminally investigate or prosecute any alcohol or drug abuse patient.[facility] CenterIn the event this information is protected by the Federal Confidentiality of Alcohol and Drug Abuse Patient Records regulations: The Federal rules restrict any use of the information to criminally investigate or prosecute any alcohol or drug abuse patient.[facility] CenterIn the event this information is protected by the Federal Confidentiality of Alcohol and Drug Abuse Patient Records regulations: The Federal rules restrict any use of the information to criminally investigate or prosecute any alcohol or drug abuse patient.[facility] CenterIn the event this information is protected by the Federal Confidentiality of Alcohol and Drug Abuse Patient Records regulations: The Federal rules restrict any use of the information to criminally investigate or prosecute any alcohol or drug abuse patient.[facility] CenterIn the event this information is protected by the Federal Confidentiality of Alcohol and Drug Abuse Patient Records regulations: The Federal rules restrict any use of the information to criminally investigate or prosecute any alcohol or drug abuse patient.[facility] CenterIn the event this information is protected by the Federal Confidentiality of Alcohol and Drug Abuse Patient Records regulations: The Federal rules restrict any use of the information to criminally investigate or prosecute any alcohol or drug abuse patient.[facility] CenterIn the event this information is protected by the Federal Confidentiality of Alcohol and Drug Abuse Patient Records regulations: The Federal rules restrict any use of the information to criminally investigate or prosecute any alcohol or drug abuse patient.[facility] CenterIn the event this information is protected by the Federal Confidentiality of Alcohol and Drug Abuse Patient Records regulations: The Federal rules restrict any use of the information to criminally investigate or prosecute any alcohol or drug abuse patient.[facility] CenterIn the event this information is protected by the Federal Confidentiality of Alcohol and Drug Abuse Patient Records regulations: The Federal rules restrict any use of the information to criminally investigate or prosecute any alcohol or drug abuse patient.[facility] CenterIn the event this information is protected by the Federal Confidentiality of Alcohol and Drug Abuse Patient Records regulations: The Federal rules restrict any use of the information to criminally investigate or prosecute any alcohol or drug abuse patient.[facility] CenterIn the event this information is protected by the Federal Confidentiality of Alcohol and Drug Abuse Patient Records regulations: The Federal rules restrict any use of the information to criminally investigate or prosecute any alcohol or drug abuse patient.[facility] CenterIn the event this information is protected by the Federal Confidentiality of Alcohol and Drug Abuse Patient Records regulations: The Federal rules restrict any use of the information to criminally investigate or prosecute any alcohol or drug abuse patient.[facility] CenterIn the event this information is protected by the Federal Confidentiality of Alcohol and Drug Abuse Patient Records regulations: The Federal rules restrict any use of the information to criminally investigate or prosecute any alcohol or drug abuse patient.[facility] CenterIn the event this information is protected by the Federal Confidentiality of Alcohol and Drug Abuse Patient Records regulations: The Federal rules restrict any use of the information to criminally investigate or prosecute any alcohol or drug abuse patient.[facility] CenterIn the event this information is protected by the Federal Confidentiality of Alcohol and Drug Abuse Patient Records regulations: The Federal rules restrict any use of the information to criminally investigate or prosecute any alcohol or drug abuse patient.[facility] CenterIn the event this information is protected by the Federal Confidentiality of Alcohol and Drug Abuse Patient Records regulations: The Federal rules restrict any use of the information to criminally investigate or prosecute any alcohol or drug abuse patient.[facility] CenterIn the event this information is protected by the Federal Confidentiality of Alcohol and Drug Abuse Patient Records regulations: The Federal rules restrict any use of the information to criminally investigate or prosecute any alcohol or drug abuse patient.[facility] CenterIn the event this information is protected by the Federal Confidentiality of Alcohol and Drug Abuse Patient Records regulations: The Federal rules restrict any use of the information to criminally investigate or prosecute any alcohol or drug abuse patient.[facility] CenterIn the event this information is protected by the Federal Confidentiality of Alcohol and Drug Abuse Patient Records regulations: The Federal rules restrict any use of the information to criminally investigate or prosecute any alcohol or drug abuse patient.[facility] CenterIn the event this information is protected by the Federal Confidentiality of Alcohol and Drug Abuse Patient Records regulations: The Federal rules restrict any use of the information to criminally investigate or prosecute any alcohol or drug abuse patient.[facility] CenterIn the event this information is protected by the Federal Confidentiality of Alcohol and Drug Abuse Patient Records regulations: The Federal rules restrict any use of the information to criminally investigate or prosecute any alcohol or drug abuse patient.[facility] CenterIn the event this information is protected by the Federal Confidentiality of Alcohol and Drug Abuse Patient Records regulations: The Federal rules restrict any use of the information to criminally investigate or prosecute any alcohol or drug abuse patient.[facility] CenterIn the event this information is protected by the Federal Confidentiality of Alcohol and Drug Abuse Patient Records regulations: The Federal rules restrict any use of the information to criminally investigate or prosecute any alcohol or drug abuse patient.[facility] CenterIn the event this information is protected by the Federal Confidentiality of Alcohol and Drug Abuse Patient Records regulations: The Federal rules restrict any use of the information to criminally investigate or prosecute any alcohol or drug abuse patient.[facility] CenterIn the event this information is protected by the Federal Confidentiality of Alcohol and Drug Abuse Patient Records regulations: The Federal rules restrict any use of the information to criminally investigate or prosecute any alcohol or drug abuse patient.[facility] Reason for Visit (unrecogniz ed section and content) Specialty Diagnoses / Procedures Referred By Contac t Referred To Contact Diagnoses Rheumatoid arthritis involving multiple sites with positive rheumatoid factor (HCC) Procedures ABATACEPT INJECTION Maritza Bal MD [address] [place] [address] [facility] [address] [place] [address] Referral ID Status Reason Start Date Expiration Date V isits Requested Visits Authorized [id number] Authorized 08/10/2021 02/20/2023 99 99 Reason Comments Chemotherapy Treatment Specialty Diagnoses / Procedures Referred By Contac t Referred To Contact Diagnoses Rheumatoid arthritis involving multiple sites with positive rheumatoid factor (HCC) Maritza Bal MD [address] [place] [address] [facility] [address] [place] [address] Referral ID Status Reason Start Date Expiration Date V isits Requested Visits Authorized [id number] Authorized 08/10/2021 11/08/2021 99 99 Reason Comments Rheumatoid Arthritis Reason Onset Date Comments SPP Inflammatory Conditions - Treatment Referral 05/19/2021 [employer] Insurance Authorization 05/19/2021 PA Submi ssion pending Reason Comments Blood Pressure Check Reason Onset Date Comments Refill Request 05/30/2021 Reason Comments Chest Congestion Pt reported SOB, christopher st tightness Reason Comments Care Coordination Evusheld Reason Comments Chest Congestion x 1 week Reason Comments follow up chest congestion Reason Comments Radiology CT Specialty Diagnoses / Procedures Referred By Contac t Referred To Contact CT IMAGING Diagnoses Lung nodules Procedures CT CHEST WO IVCON DIAGNOSTIC COMPUTED TOMOGRAPHY THORAX W/O CNTRST Older, Liliana, 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 [employer]ARM [address] [place] [address] Ct Imaging Referral ID Status Reason Start Date Expiration Date V isits Requested Visits Authorized [id number] Closed Auto-Generate d Referral 06/30/2021 07/12/2022 1 1 Reason Comments New Patient Abnormal CT Chest Reason Comments Consult Reason Comments Consult Positive Fecal Occul t Blood Test Specialty Diagnoses / Procedures Referred By Contac t Referred To Contact General Surgery Diagnoses Positive fecal occult blood test Anemia, unspecified type Procedures CONSULT TO GENERAL SURGERY OFFICE/OUTPATIENT NEW HIGH MDM 60-74 MINUTES Amanda, APRN. LilianaMANAGER FARM [address] [place] [address] Referral ID Status Reason Start Date Expiration Date V isits Requested Visits Authorized [id number] Closed PCP Requested Referral 07/01/2021 07/01/2022 1 1 Reason Comments Results Bronchoscopy Reason Comments Received Outside Medical Records Reason Onset Date Comments Refill Request 07/27/2021 Reason Comments New Patient recurrent injections , hypogammaglobulinemia Specialty Diagnoses / Procedures Referred By Contac t Referred To Contact Allergy Diagnoses Recurrent infections Hypogammaglobulinemia (HCC) Procedures CONSULT TO ALLERGY/IMMUNOLOGY OFFICE/OUTPATIENT NEW HIGH MDM 60-74 MINUTES Maritza Bal MD [address] [place] [address] Referral ID Status Reason Start Date Expiration Date V isits Requested Visits Authorized [id number] Closed PCP Requested Referral 07/06/2021 07/06/2022 1 1 Reason Comments Established Patient Follow-Up Reason Comments Edema Reason Comments Follow Up 4 month follow up Reason Comments Radiology US Specialty Diagnoses / Procedures Referred By Contac t Referred To Contact US IMAGING Diagnoses Edema of both legs Procedures US DVT LOWER BILAT DUP-SCAN XTR VEINS COMPLETE BILATERAL STUDY Santino Long MD [address] [place] [address] Us Imaging Referral ID Status Reason Start Date Expiration Date V isits Requested Visits Authorized [id number] Closed Auto-Generate d Referral 08/28/2021 09/27/2022 1 1 Reason Comments 6 week follow up Reason Comments Appointment Reason Comments Consult Positive cologard, a nemia, diarrhea continues Reason Comments Results Reason Comments Follow Up EGD and colonoscopy Reason Comments 11/18/2021 EGD & Colonoscopy Dr. Guidry Reason Comments Abdominal Pain Diarrhea Anemia Rheumatoid arthritis with positive rheumatoid factor Specialty Diagnoses / Procedures Referred By Contac t Referred To Contact Gastroenterology Diagnoses Rheumatoid arthritis involving multiple sites with positive rheumatoid factor (HCC) Anemia, unspecified type Procedures CONSULT TO GASTROENTEROLOGY OFFICE/OUTPATIENT [facility] HIGH MDM 60-74 MINUTES Maritza Bal MD [address] [place] [place] [id number] Referral ID Status Reason Start Date Expiration Date V isits Requested Visits Authorized [id number] Closed PCP Requested Referral 12/25/2021 12/25/2022 1 1 Reason Comments Results Reason Comments 2 month follow up - kidney levels Reason Onset Date Comments Refill Request 02/23/2022 Reason Comments Radiology MRI Specialty Diagnoses / Procedures [facility] MR IMAGING Diagnoses Inflammation of small intestine Inflammatory bowel disease Procedures MRI ABD ENTEROG WO/W IVCON MRI ABDOMEN W/O & W/CONTRAST MATERIAL MRI PELVIS W/O & W/CONTRAST MATERIAL Tana Gongora PA-C [address] [place] [address] Mr Imaging Referral ID Status Reason Start Date Expiration Date V isits Requested Visits Authorized [id number] Closed Auto-Generate d Referral 01/27/2022 02/26/2023 1 1 Reason Comments Radiology MRI Specialty Diagnoses / Procedures [facility] To [facility] MR IMAGING Diagnoses Inflammation of small intestine Inflammatory bowel disease Procedures MRI ABD ENTEROG WO/W IVCON MRI ABDOMEN W/O & W/CONTRAST MATERIAL MRI PELVIS W/O & W/CONTRAST MATERIAL Tana Gongora PA-C [address] [place] [address] Mr Imaging Reason Onset Date Comments Population Health Navigation Outreach 04/15/2022 [facility] Gap Outreach Reason Onset Date Comments Refill Request 04/19/2022 Reason Onset Date Comments Refill Request 04/20/2022 Reason Comments Recheck MRI 03/17/22 Labs . Pain on the left side near his groin going into his back hip Reason Onset Date Comments Refill Request 05/02/2022 Reason Onset Date Comments Refill Request 05/03/2022 Reason Comments Discussion Reason Comments Medication Problem Reason Comments Medicare Wellness Exam F/U 3 Month Reason Onset Date Comments Refill Request 10/18/2022 Reason Onset Date Comments Refill Request 10/21/2022 Reason Comments F/U 3 Month Reason Onset Date Comments Refill Request 01/17/2023 Referral ID Status Reason Start Date Expiration Date V isits Requested Visits Authorized [id number] Authorized 12/27/2022 03/27/2023 99 99 Reason Comments Collagenous collitis No concerns Reason Onset Date Comments Refill Request 04/02/2023 Care Teams (unrecognized sec tion and content) Solvent Mixer Relationship Specialty Start Date End Date Santino Long MD [address] [place] [address] PCP - General 05/07/05 Solvent Mixer Relationship Specialty Start Date End Date Santino Long MD [facility] [place] [address] PCP - General 05/07/05 Solvent Mixer Relationship Specialty Start Date End Date Santino Long MD [address] [place] [address] PCP - General 05/07/05 Solvent Mixer Relationship Specialty Start Date End Date Santino Long MD [facility] [place] [address] PCP - General 05/07/05 Solvent Mixer Relationship Specialty Start Date End Date Santino Long MD [facility] [place] [address] PCP - General 05/07/05 Solvent Mixer Relationship Specialty Start Date End Date Santino Long MD [address] [place] [address] PCP - General 05/07/05 Solvent Mixer Relationship Specialty Start Date End Date Santino Long MD [address] [facility] [place] [address] PCP - General 05/07/05 Solvent Mixer Relationship Specialty Start Date End Date Santino Long MD [address] [facility] [place] [address] PCP - General 05/07/05 Solvent Mixer Relationship Specialty Start Date End Date Santino Long MD [address] [facility] [place] [address] PCP - General 05/07/05 Solvent Mixer Relationship Specialty Start Date End Date Santino Long MD [address] [facility] [place] [address] PCP - General 05/07/05 Solvent Mixer Relationship Specialty Start Date End Date Santino Long MD [address] [facility] [place] [address] PCP - General 05/07/05 Solvent Mixer Relationship Specialty Start Date End Date Santino Long MD [address] [facility] [place] [address] PCP - General 05/07/05 Solvent Mixer Relationship Specialty Start Date End Date Santino Long MD [address] [facility] [place] [address] PCP - General 05/07/05 Solvent Mixer Relationship Specialty Start Date End Date Santino Long MD [address] [facility] [place] [address] PCP - General 05/07/05 Solvent Mixer Relationship Specialty Start Date End Date Santino Long MD [address] [facility] [place] [address] PCP - General 05/07/05 Solvent Mixer Relationship Specialty Start Date End Date Santino Long MD [address] [facility] [place] [address] PCP - General 05/07/05 Solvent Mixer Relationship Specialty Start Date End Date Santino Long MD [address] [facility] [place] [address] PCP - General 05/07/05 Solvent Mixer Relationship Specialty Start Date End Date Santino Long MD [address] [facility] [place] [address] PCP - General 05/07/05 Solvent Mixer Relationship Specialty Start Date End Date Santino Long MD [address] [facility] [place] [address] PCP - General 05/07/05 Solvent Mixer Relationship Specialty Start Date End Date Santino Long MD [address] [facility] [place] [address] PCP - General 05/07/05 Solvent Mixer Relationship Specialty Start Date End Date Santino Long MD [address] [facility] [place] [address] PCP - General 05/07/05 Solvent Mixer Relationship Specialty Start Date End Date Santino Long MD [address] [facility] [place] [address] PCP - General 05/07/05 Solvent Mixer Relationship Specialty Start Date End Date Santino Long MD [address] [facility] [place] [address] PCP - General 05/07/05 Solvent Mixer Relationship Specialty Start Date End Date Santino Long MD [address] [facility] [place] [address] PCP - General 05/07/05 Solvent Mixer Relationship Specialty Start Date End Date Santino Long MD [address] [facility] [place] [address] PCP - General 05/07/05 Solvent Mixer Relationship Specialty Start Date End Date Santino Long MD [address] [facility] [place] [address] PCP - General 05/07/05 Solvent Mixer Relationship Specialty Start Date End Date Santino Long MD [address] [facility] [place] [address] PCP - General 05/07/05 Solvent Mixer Relationship Specialty Start Date End Date Santino Long MD [address] [facility] [place] [address] PCP - General 05/07/05 Solvent Mixer Relationship Specialty Start Date End Date Santino Long MD [address] [facility] [place] [address] PCP - General 05/07/05 Solvent Mixer Relationship Specialty Start Date End Date Santino Long MD [address] [facility] [place] [address] PCP - General 05/07/05 Solvent Mixer Relationship Specialty Start Date End Date Santino Long MD [address] [facility] [place] [address] PCP - General 05/07/05 Solvent Mixer Relationship Specialty Start Date End Date Santino Long MD [address] [facility] [place] [address] PCP - General 05/07/05 Solvent Mixer Relationship Specialty Start Date End Date aSntino Long MD [address] [facility] [place] [address] PCP - General 05/07/05 Solvent Mixer Relationship Specialty Start Date End Date Santino Long MD [address] [place] [address] PCP - General 05/07/05 Solvent Mixer Relationship Specialty Start Date End Date Santino Long MD [address] [place] [address] PCP - General 05/07/05 Solvent Mixer Relationship Specialty Start Date End Date Santino Long MD [address] [place] [address] PCP - General 05/07/05 Solvent Mixer Relationship Specialty Start Date End Date Santino Long MD [address] [place] [address] PCP - General 05/07/05 Solvent Mixer Relationship Specialty Start Date End Date Santino Long MD [address] [place] [address] PCP - General 05/07/05 Solvent Mixer Relationship Specialty Start Date End Date Santino Long MD [address] [place] [address] PCP - General 05/07/05 Solvent Mixer Relationship Specialty Start Date End Date Santino Long MD [address] [place], [place] [address] [phone] PCP - General 05/07/05 Solvent Mixer Relationship Specialty Start Date End Date Santino Long MD [address] [place], [place] [address] [phone] PCP - General 05/07/05 (unrecognized sect ion and content) No Status Records FoundNo Status Records Found INFORMATION SOURCE (unrecogn ized section and content) DATE CREATED AUTHOR AUTHOR'S ROCK SAMPSON 02/12/2023 [facility] FOR RECORDS PERTAINING TO PATIENTS WHO ARE OR HAVE BEEN ENROLLED IN A CHEMICAL DEPENDENCY/SUBSTANCEABUSE PROGRAM, SOME INFORMATION MAY BE OMITTED. This clinical summary was aggregated from multiple sources. Caution should be exercised in using it in the provision of clinical care. This summary normalizes information from multiple sources, and as a consequence, information in this document may materially change the coding, format and clinical context of patient data. In addition, data may be omitted in some cases. CLINICAL DECISIONS SHOULD BE BASED ON THE PRIMARY CLINICAL RECORDS. [employer] provides no warranty or guarantee of the accuracy or completeness of information in this document.
== END | disposition home or self-care (01) ==
LOC: CVS 06:43
PROVIDERS: PCP Internal Medicine; Referring Provider Nurse Practitioner Family; Visit Provider Nurse Practitioner Family
DX: I48.19 Other persistent atrial fibrillation (principal); I42.9 Cardiomyopathy, unspecified
CPT/HCPCS: 93308

== ENCOUNTER 2024-02-14 09:33 | Emergency (ER) | payer MEDICARE, BC, SELFPAY ==
[2024-02-14 09:34] VITALS: BP 100/71; PULSE 61; RESP 18; TEMP 36.5; O2SAT 97; BMI 22.8
--- NOTE | 2024-02-14 09:59 | EX.ED.VIS.UR ---
HPI HPI - URI History of Present Illness Chief Complaint: Cough Informant: patient and spouse/S.O. Narrative Narrative: Patient was diagnosed with COVID by positive test at urgent care 4 days ago, he started getting ill 5 days ago, the day before the test, and still feels poorly. He has had some mild dyspnea that is better after coughing up some clear mucus. He feels chest congestion not a lot of dyspnea but some. No chest pain. No syncope. He still able to walk and get around without limitation. No orthopnea but he has a history of heart failure. No leg edema. He is on apixaban. Apparently has a history of A-fib but was cardioverted but states he is supposed to be on anticoagulation for the rest of his life. She states that urgent care they were told although he is in the timeframe for Paxlovid, they could not start him on it because he is on Eliquis. [facility] ED Constitutional Constitutional ED: Reports body ache(s), chills, fatigue, fever(s), malaise and subjective Eyes Eyes: Denies change in vision or diplopia ENT ENT ED: Reports rhinorrhea; Denies sore throat Cardiovascular Cardiovascular: Denies chest pain, orthopnea or palpitations Respiratory/Chest Respiratory/Chest: Reports chest congestion, cough and dyspnea; Denies orthopnea Gastrointestinal Gastrointestinal: Denies abdominal pain, diarrhea, nausea or vomiting Genitourinary Genitourinary ED: Denies dysuria or hematuria Musculoskeletal Musculoskeletal: Denies back pain or neck pain Integumentary Denies abscess or rash Neurologic Neurologic: Denies headache(s), paresthesias or weakness Psychiatric Psychiatric: Denies anxiety or suicidal thoughts [facility] Medical History Cardiomyopathy Lung nodules Atrial fibrillation BPH (benign prostatic hyperplasia) Rheumatoid arthritis Essential hypertension Hypertension New onset atrial flutter HTN (hypertension) Colitis Home Medications ?Medication ?Instructions ?Recorded ?Last Taken ?Type hydroxychloroquine 200 mg tablet 400 mg PO .COMPLEX RHEUMATOID 06/23/22 12/14/22 History ARTHRITIS mometasone 0.1 % topical cream 1 applic topical DAILY PRN rash 06/23/22 Unknown History Handicap Placard #1 ea 09/17/22 Unknown Rx lisinopril 40 mg tablet 20 mg PO DAILY BLOOD PRESSURE 10/07/22 12/14/22 History furosemide 40 mg tablet 40 mg PO .PRN 11/22/22 Unknown History amitriptyline 10 mg tablet 10 mg PO DAILY #90 tabs 06/09/23 Unknown Rx metoprolol succinate 50 mg 50 mg PO DAILY #90 tabs 06/09/23 Unknown Rx tablet,extended release 24 hr spironolactone 25 mg tablet 25 mg PO DAILY FLUID #30 tabs 08/01/23 Unknown Rx dapagliflozin propanediol 10 mg 10 mg PO DAILY DIABETES #30 tabs 08/23/23 Unknown Rx tablet (Farxiga) balsalazide 750 mg capsule 2,250 mg PO TID ULCERATIVE COLITIS 11/22/23 Unknown History tramadol 50 mg tablet 50 mg PO BID PRN 11/22/23 Unknown History apixaban 5 mg tablet (Eliquis) 5 mg PO BID #180 tabs 12/13/23 Unknown Rx Allergy/AdvReac Type Severity Reaction Status Date / Time etanercept (From Enbrel) AdvReac Rash Verified 11/22/23 14:17 Family History Mother Diabetes CAD (coronary artery disease) Myocardial infarction, Onset Age: 82 Father CAD (coronary artery disease) Brother CAD (coronary artery disease) Hypertension Surgical History History of cardioversion History of bilateral cataract extraction History of foot surgery History of hernia repair History of arthroscopy of knee History of bilateral knee replacement Social History housing: house Smoking Status: Former smoker how long ago did patient quit smokin years ago alcohol intake: current alcohol intake frequency: 0-2 drinks per day Alcohol type: beer details: wine substance use type: does not use caffeine: Yes Type: coffee Number of servings: 2 EXAM Physical Exam Const Vital Signs: 02/14/24 09:34 02/14/24 09:34 02/14/24 10:45 Temperature 97.7 F L 98.7 F Temperature Source Oral Pulse Rate 61 88 Respiratory Rate 18 20 H Respiratory Effort Short of Breath Respiratory Depth Normal Respiratory Pattern Normal Blood Pressure 100/71 114/76 Blood Pressure Mean 80 88 Pulse Ox 97 99 Oxygen Delivery Method Room Air Room Air Positive well nourished and well developed Constitutional Narrative: Malaised-appearing, no distress General Appearance ED: well developed and NAD HEENT Reports moist mucous membranes normocephalic and atraumatic Eyes PERRL and EOMs intact bilaterally Neck full ROM, supple and no JVD Resp normal respiratory effort and clear to auscultation bilaterally Cardio regular rate and regular rhythm Cardio Narrative: Faint heart sounds Rate: Negative for tachycardic GI non-tender and non-distended Auscultation: normoactive bowel sounds Palpation: soft Back/Spine no CVA tenderness General Back: other FROM Extremity normal to inspection and no calf tenderness General Extremety ED: Negative for edema, pulses abnormal or tenderness General Extremity: Negative for edema or pulses abnormal Neuro oriented x3, CN's II-XII intact bilaterally and no sensory deficits noted Sensorium / Orientation: awake and alert Motor Exam: strength 5/5 throughout Skin no rashes or lesions noted and no wounds MDM MDM MDM Narrative Medical decision making narrative: Patient has classic symptoms of recent COVID strains. He is feeling fatigued but still able to get around. His vital signs are normal including pulse oximetry at 97%, this is the most reassuring piece of data. I obtained a chest x-ray 1 view on my interpretation shows no acute pneumonia or CHF, and I do not think he needs further testing right now. Been on day 5 and still having symptoms is not unusual or unexpected. Given appropriate discharge instructions. Radiography Diagnostic Testing: Clinical Impression(s) from Imaging Studies Chest X-Ray 02/14/24 10:00 IMPRESSION: Normal x-ray examination of the chest. Electronically Signed: Riley Elias MD at 10:15 EST , Discharge Plan Triage Chief Complaint: Cough ED Provider: Karlos Fallon Dx/Rx/DC Orders Clinical Impression: COVID-19 Instructions: Coronavirus Disease 2019 (COVID-19): Caring for Yourself or Others Prescriptions: No Action mometasone 0.1 % cream 1 applic topical DAILY PRN (Reason: rash) balsalazide 750 mg capsule 2,250 mg PO TID (DME) Handicap Placard See Rx Instructions .Route .MEDSUPPLY Qty: 1 0RF Rx Instructions: Good from 09/17/22-09/18/2027 tramadol 50 mg tablet 50 mg PO BID PRN lisinopril 40 mg tablet 20 mg PO DAILY furosemide 40 mg tablet 40 mg PO .PRN metoprolol succinate 50 mg tablet extended release 24 hr 50 mg PO DAILY Qty: 90 3RF amitriptyline 10 mg tablet 10 mg PO DAILY Qty: 90 3RF hydroxychloroquine 200 mg tablet 400 mg PO .COMPLEX Rx Instructions: 400 mg orally 2 tabs daily except on Tuesday; spironolactone 25 mg tablet 25 mg PO DAILY Qty: 30 11RF Farxiga 10 mg tablet 10 mg PO DAILY Qty: 30 12RF Eliquis 5 mg tablet 5 mg PO BID Qty: 180 3RF Primary Care Provider: Santino Long Referrals: Santino Long MD [Primary Care Provider] - 1 Week if not improving Activity Restrictions/Additional Instructions: Try to get a home portable pulse oximeter and closely watch your oxygen levels periodically. If you stay below 90% for more than a minute or so, and/or you are feeling like your breathing is getting worse, return to the emergency department for further evaluation. Currently, CDC recommendations state that you should stay home through day 5 of symptoms, then as long as symptoms are improving, if you need to go to work or somewhere else you may for days 6-10 as long as you are wearing a mask the entire time. If you are feeling better after day 10 you may resume life is normal. Print Language: Uzbek Disposition Disposition: Home, Self Care Discharge Date/Time: 02/14/24 10:46
--- NOTE | 2024-02-14 10:00 | RAD_ITS ---
STUDY: X-RAY CHEST REASON FOR EXAM: Male, 88 years old. sob. covid. TECHNIQUE: Single AP portable view of the chest. COMPARISON: 09/01/2022 FINDINGS: The lungs are clear and expanded. There is no demonstrated pleural abnormality. Normal size heart. Normal mediastinum and mk. Normal visualized pulmonary arteries. Normal visualized aortic arch and descending thoracic aorta. Normal visualized thoracic spine. Normal visualized ribs, clavicles, and shoulders. There is no demonstrated abnormality of the visualized soft tissue structures of the upper abdomen. RAD/Chest 1 View (Portable) IMPRESSION: Normal x-ray examination of the chest. Electronically Signed: Riley Elias MD at 10:15 [facility] ,
[2024-02-14 10:45] VITALS: BP 114/76; PULSE 88; RESP 20; TEMP 37.1; O2SAT 99
== END 2024-02-14 10:46 | disposition home or self-care (01) ==
LOC: ED 10:16
PROVIDERS: Emergency Provider Emergency Medicine; PCP Internal Medicine; Visit Provider Emergency Medicine
DX: U07.1 COVID-19 (principal); I50.9 Heart failure, unspecified; I11.0 Hypertensive heart disease with heart failure; I48.91 Unspecified atrial fibrillation; Z79.01 Long term (current) use of anticoagulants; Z87.891 Personal history of nicotine dependence
CPT/HCPCS: 71045; 99282

== ENCOUNTER 2024-02-19 08:56 | Inpatient (IN) | payer MEDICARE, BC, SELFPAY ==
[2024-02-19] VITALS (10 sets, daily range): BP systolic 120–135; BP diastolic 65–73; PULSE 73–85; RESP 16–74; TEMP 36.6–37.2; O2SAT 85–95; BMI 21.4; BMI 21.7
--- NOTE | 2024-02-19 09:27 | EKG12_ITS ---
Test Reason : SOB Blood Pressure : */* mmHG Vent. Rate : 75 BPM Atrial Rate : 75 BPM P-R Int : 162 ms QRS Dur : 116 ms QT Int : 360 ms P-R-T Axes : 85 -8 104 degrees QTcB Int : 402 ms Normal sinus rhythm Incomplete right bundle branch block Septal infarct , age undetermined Abnormal ECG Confirmed by RUY CORONA, CARLOS ([id number]), writer editor NARENDRA HYMAN ([id number]) on 02/20/2024 10:53:21 AM Referred By: Confirmed By: CARLOS REDMOND MD
--- NOTE | 2024-02-19 09:30 | ED.VIS.DYS ---
HPI History of Present Illness Chief Complaint: Shortness of Breath Informant: patient and spouse/S.O. Narrative Narrative: 88-year-old male presenting with his for the evaluation of dyspnea. Patient states that 10 days ago he was diagnosed with COVID-19. Over the past several days she has had a progressive weakening increased shortness of breath cough with sputum production. He had previously had a chest x-ray while having COVID that did not show infiltrate. He has a history of atrial fibrillation and is on apixaban. I asked about a history of heart failure and the states that he does have a history of heart failure and that his ejection fraction is really bad. Last echocardiogram that I see was in March with an ejection fraction of 50%. He follows with cardiology locally. He denies any significant leg swelling. Decreased appetite the last couple days. Was noted to be hypoxic in triage. He does not wear oxygen at home. notes that she is having a very hard time getting him to do anything at home now stating that it took about an hour for him to get up and get dressed to come here. states that he is becoming increasingly confused. [facility] Medical History Cardiomyopathy Lung nodules Atrial fibrillation BPH (benign prostatic hyperplasia) Rheumatoid arthritis Essential hypertension Hypertension New onset atrial flutter HTN (hypertension) Colitis Home Medications ?Medication ?Instructions ?Recorded ?Last Taken ?Type hydroxychloroquine 200 mg tablet 400 mg PO .COMPLEX RHEUMATOID 06/23/22 12/14/22 History ARTHRITIS Handicap Placard #1 ea 09/17/22 Unknown Rx lisinopril 40 mg tablet 20 mg PO DAILY BLOOD PRESSURE 10/07/22 12/14/22 History furosemide 40 mg tablet 40 mg PO .PRN 11/22/22 Unknown History metoprolol succinate 50 mg 50 mg PO DAILY #90 tabs 06/09/23 Unknown Rx tablet,extended release 24 hr spironolactone 25 mg tablet 25 mg PO DAILY FLUID #30 tabs 08/01/23 Unknown Rx dapagliflozin propanediol 10 mg 10 mg PO DAILY DIABETES #30 tabs 08/23/23 Unknown Rx tablet (Farxiga) tramadol 50 mg tablet 50 mg PO BID PRN pain 11/22/23 Unknown History apixaban 5 mg tablet (Eliquis) 5 mg PO BID #180 tabs 12/13/23 Unknown Rx bupropion HCl 150 mg 24 hr tablet, 150 mg PO DAILY 02/19/24 Unknown History extended release mesalamine 0.375 gram 1.5 g PO DAILY 02/19/24 Unknown History capsule,extended release 24 hr Allergy/AdvReac Type Severity Reaction Status Date / Time etanercept (From Enbrel) AdvReac Rash Verified 11/22/23 14:17 Family History Mother Diabetes CAD (coronary artery disease) Myocardial infarction, Onset Age: 82 Father CAD (coronary artery disease) Brother CAD (coronary artery disease) Hypertension Surgical History History of cardioversion History of bilateral cataract extraction History of foot surgery History of hernia repair History of arthroscopy of knee History of bilateral knee replacement Social History housing: house Smoking Status: Former smoker how long ago did patient quit smokin years ago alcohol intake: current alcohol intake frequency: 0-2 drinks per day Alcohol type: beer details: wine substance use type: does not use caffeine: Yes Type: coffee Number of servings: 2 ROS ROS ED ROS Narrative Generalized weakness Constitutional Constitutional ED: Reports chills; Denies weight loss Eyes Eyes: Reports other Details: Crusting in the left eye Lids ; Denies change in vision or diplopia ENT ENT ED: Denies ear pain, rhinorrhea or sore throat Cardiovascular Cardiovascular: Denies chest pain, orthopnea, palpitations or racing heartbeat Respiratory/Chest Respiratory/Chest: Reports cough, dyspnea, dyspnea on exertion and sputum; Denies orthopnea Gastrointestinal Gastrointestinal: Denies abdominal pain, diarrhea, nausea or vomiting Genitourinary Genitourinary ED: Denies dysuria, hematuria or urinary frequency Musculoskeletal Musculoskeletal: Reports myalgias; Denies arthralgias Integumentary Denies abscess or rash Neurologic Neurologic: Denies headache(s) or weakness Psychiatric Psychiatric: Denies anxiety, depression, suicidal ideation or suicidal thoughts Endocrine Endocrinology: Denies polydipsia, polyphagia or polyuria Allergic/Immunologic Allergic/Immunologic ED: Denies mouth swelling, tongue swelling or urticaria EXAM Physical Exam Narrative Exam Narrative: Rhonchorous cough noted Const Vital Signs: 02/19/24 08:59 02/19/24 09:01 02/19/24 09:10 Temperature 97.8 F Temperature Source Temporal Pulse Rate 77 Respiratory Rate 18 Respiratory Pattern Tachypnea Blood Pressure 128/69 H Blood Pressure Mean 88 Pulse Ox 85 90 Oxygen Delivery Method Room Air Nasal Cannula Oxygen Flow Rate (L/min) 3 02/19/24 09:12 02/19/24 09:27 02/19/24 09:38 Temperature Temperature Source Pulse Rate 73 Respiratory Rate 18 Respiratory Pattern Normal Blood Pressure Blood Pressure Mean Pulse Ox 94 94 Oxygen Delivery Method Nasal Cannula Nasal Cannula Oxygen Flow Rate (L/min) 4 4 02/19/24 10:01 Temperature 98.2 F Temperature Source Oral Pulse Rate 75 Respiratory Rate 74 H Respiratory Pattern Blood Pressure 133/73 H Blood Pressure Mean 93 Pulse Ox 93 Oxygen Delivery Method Nasal Cannula Oxygen Flow Rate (L/min) 4 Positive well nourished and well developed General Appearance ED: well developed HEENT Reports normocephalic, head/scalp atraumatic and moist mucous membranes Eyes PERRL and EOMs intact bilaterally Eyes Narrative: Left conjunctival injection with crusting of eyelashes Neck no lymphadenopathy, supple and no JVD Resp normal respiratory effort Auscultation: rhonchi lower bilaterally Cardio regular rate, regular rhythm and no murmurs GI normal to inspection, nondistended, normoactive bowel sounds and non-tender Palpation: soft Back/Spine no CVA tenderness and normal ROM Extremity normal to inspection General Extremety ED: Negative for edema General Extremity: Negative for edema Neuro oriented x3 and CN's II-XII intact bilaterally Sensorium / Orientation: alert Motor Exam: strength 5/5 throughout Psych mental status grossly normal Mood & Affect: Negative for depressed or tearful Skin no rashes or lesions noted and no wounds MDM MDM MDM Narrative Medical decision making narrative: Differential diagnosis includes congestive heart failure pneumonia pleural effusions hypoxia electrolyte abnormalities dehydration kidney injury sepsis cardiac dysrhythmia Patient given supplemental oxygen and. My independent interpretation of the chest x-ray is right lower lobe infiltrate. White count significantly elevated at 24.9. 90.1 neutrophils hemoglobin 14.4 platelet count is 335. INR 2.2 PTT 31.7. BUN of 31 creatinine 1.34. Normal troponin at 52 BNP slightly elevated 164. Normal transaminases and direct bilirubin. Patient given breathing treatment Rocephin azithromycin blood cultures obtained. Plan will be admission into the hospital. History & Record Review Discussion w/independent historian: Patient and Family Additional record(s) reviewed:: Prior outpatient record, Prior ED visit and Prior labs Lab Data Attestation: I reviewed the patient's lab results. Labs: Laboratory Results - last 24 hr 02/19/24 02/19/24 09:10 10:27 WBC 24.9 H RBC 4.62 Hgb 14.4 Hct 43.3 MCV 93.7 MCH 31.2 MCHC 33.3 RDW Std Deviation 48.6 H RDW Coeff of Dominick 14.1 Plt Count 335 MPV 11.0 Immature Gran % (Auto) 2.400 H Neut % (Auto) 90.1 H Lymph % (Auto) 2.3 L [place] % (Auto) 4.5 Eos % (Auto) 0.0 Baso % (Auto) 0.7 Absolute Neuts (auto) 22.4 H Absolute Lymphs (auto) 0.57 L Nucleated RBC % 0 Atypical Lymphocytes 1+ Toxic Granulation 1+ Toxic Vacuolation 1+ Dohle Bodies 1+ Platelet Estimate ADEQUATE RBC Morphology NORM C+C PT 24.6 H INR 2.2 APTT 31.7 Sodium 137 Potassium 4.0 Chloride 106 Carbon Dioxide 21.0 Anion Gap 10 BUN 31 H Creatinine 1.34 H Estim Creat Clear Calc 41.69 Est GFR (MDRD) Af Amer 65 Est GFR (MDRD) Non-Af 54 L BUN/Creatinine Ratio 23.1 H Glucose 133 H Calcium 9.6 Total Bilirubin 0.50 Direct Bilirubin 0.17 AST 35 ALT 34 Alkaline Phosphatase 120 H Troponin I High Sens 52 B-Natriuretic Peptide 164.1 H Total Protein 7.3 Albumin 2.5 L Globulin 4.8 H Urine Color Yellow Urine Clarity Sl. Cloudy Urine pH 6.0 Ur Specific [place] 1.025 Urine Protein 30 H Urine Glucose (UA) 1000 H Urine Ketones Negative Urine Occult Blood 10 H Urine Nitrite Negative Urine Bilirubin Negative Urine Urobilinogen Normal Ur Leukocyte Esterase Negative Urine RBC 0-5 SEEN Urine WBC 0-5 SEEN Ur Squamous Epith Cells 0-5 SEEN Ur Transition Epith Cell 0-5 SEEN Ur Renal Epithelial Cell 5-10 SEEN Urine Bacteria 2+ Coarse Granular Casts 0-5 SEEN Urine Mucus 0 SEEN Radiography Diagnostic Testing: Clinical Impression(s) from Imaging Studies Chest X-Ray 12/29/24 09:45 IMPRESSION: New right basilar consolidation concerning for pneumonia. Electronically Signed: Brittany Araiza MD at 10:04 EST , EKG Initial EKG: Attestation: I personally reviewed and interpreted this EKG as follows: Comments: Normal sinus rhythm ventricular rate of 75 bpm incomplete right bundle branch block noted. Management Discussion w/another healthcare provider: Hospitalist (Dr Mack) Discharge Plan Dx/Rx/DC Orders Clinical Impression: Anticoagulated, Acute hypoxemic respiratory failure, Acute conjunctivitis of left eye Disposition Disposition: Acute Care Hospital [facility]
[2024-02-19] MEDS: Ipratropium/Albuterol Sulfate 3 ML AMPUL.NEB INHALATION (09:36)
[2024-02-19 09:38] LABS: Absolute Lymphocyte Count 0.57 X10^3/uL (0.83-4.51); Absolute Neutrophil Count 22.4 X10^3/uL (2.0-7.7); Basophil# 0.18 X10^3/uL; Basophil% 0.7 % (0-1); Eosinophil# 0.01 X10^3/uL; Hematocrit 43.3 % (40-54); Hemoglobin 14.4 g/dL (13.0-16.5); Lymphocyte # 0.57 X10^3/ul (0.83-4.51); Lymphocyte % 2.3 % (19-41); Mean Corp Hgb Conc 33.3 g/dL (32-36); Mean Corpuscular Hgb 31.2 pg (27.0-32.0); Mean Corpuscular Volume 93.7 fL (80-94); Monocyte# 1.13 X10^3/uL; Monocyte% 4.5 % (0-10); NRBC Flagged by Analyzer 0 % (0-5); Neutrophil # 22.38 X10^3/uL (2.7-7.7); Neutrophil % 90.1 % (47-70); POSITIVE DIFFERENTIAL YES; Platelet Count 335 K/mm3 (150-450); RBC Distribution Width CV 14.1 % (11.6-14.6); RBC Distribution Width SD 48.6 fl (35.1-43.9); Red Blood Count 4.62 M/mm3 (4.6-6.2); White Blood Count 24.9 K/mm3 (4.4-11.0)
[2024-02-19] MEDS: Erythromycin Base 1 OPTH.TUBE 1 APPLIC LEFT EYE ×4 (09:42→21:00)
--- NOTE | 2024-02-19 09:45 | RAD_ITS ---
HISTORY: cough hypoxia. TECHNIQUE: XR Chest 1 View. COMPARISON: 02/14/2024. FINDINGS: CARDIOMEDIASTINAL BORDERS: Cardiac silhouette within normal limits in size. Mediastinal contour unremarkable with calcification of the aortic knob. LUNGS: Interval development of right basilar consolidation. Mild left basilar atelectasis again seen. PLEURA: No pleural effusion or pneumothorax seen. OSSEOUS STRUCTURES: Degenerative change. RAD/Chest 1 View (Portable) IMPRESSION: New right basilar consolidation concerning for pneumonia. Electronically Signed: Brittany Araiza MD at 10:04 EST ,
[2024-02-19 09:52] LABS: Differential Indicated SCAN CRITERIA MET
[2024-02-19 09:59] LABS: International Normalized Ratio 2.2; Prothrombin Time (Protime)PT. 24.6 SECONDS (11.7-14.9)
[2024-02-19 10:00] LABS: Partial Thromboplast Time 31.7 Seconds (24.1-36.2)
[2024-02-19 10:11] LABS: AST(SGOT) 35 U/L (15-37); Alanine Aminotransfer ALT/SGPT 34 U/L (16-61); Albumin, Serum 2.5 g/dL (3.2-5.0); Alkaline Phosphatase 120 U/L (45-117); Anion Gap 10 (5-15); BUN 31 mg/dL (7-18); BUN/Creat Ratio 23.1 RATIO (10-20); Bilirubin, Direct 0.17 mg/dL (0.00-0.30); Calcium,Total 9.6 mg/dL (8.5-10.1); Chloride 106 mmol/L (98-107); Creatinine, Serum 1.34 mg/dL (0.70-1.30); EST Glomerular Filtration Rate 54 mL/min (>60); Est Glom Filt Rate - Afr Amer 65 mL/min (>60); Estimated Creatinine Clearance 41.69 ml/min; Globulin 4.8 g/dL (2.2-4.2); Glucose 133 mg/dL (74-106); Protein, Total 7.3 g/dL (6.4-8.2); Sodium Level 137 mmol/L (136-145); Troponin-I HS 52 pg/mL (3.0-78.0)
[2024-02-19] MEDS: Ceftriaxone 1 GM/50 ML BAG IV (10:12)
[2024-02-19 10:17] LABS: Atypical Lymphocyte 1+ %; Dohle Bodies 1+; Platelet Estimate ADEQUATE (ADEQ); Red Cell Morphology NORM C+C NORMAL (NORM C&C); Toxic Granulation 1+; Vacuolated Cells 1+
[2024-02-19] MEDS: Azithromycin 500 MG in 0.9% Normal Saline (250mL Bag) 250 ML 250 MG IV (10:32)
[2024-02-19 10:34] LABS: Mucous, Urine 0 SEEN /hpf (<or=2+)
[2024-02-19 10:34] LABS: BNP,B-Type NATRIURETIC PEPTIDE 164.1 pg/mL (0-100)
[2024-02-19 10:37] LABS: Color, Urine Yellow (Yellow); Glucose, Dipstick 1000 mg/dl (Normal); Ketone-Dipstick Negative (Negative); Leukocyte Esterase-Dipstick Negative /ul (Negative); Nitrite-Dipstick Negative (Negative); Occult Blood-Urine 10 /ul (Negative); Protein-Dipstick 30 mg/dl (Negative); Specific Gravity, Urine 1.025 (1.002-1.030); Urine Bilirubin Dipstick Negative (Negative); Urine Clarity Sl. Cloudy (Clear); Urine Urobilinogen Normal (Normal)
[2024-02-19 10:45] LABS: Bacteria 2+ /hpf (None Seen); Coarse Granular Cast 0-5 SEEN /lpf (0-5 /lpf); Red Blood Cells-Urine 0-5 SEEN /hpf (0-5); Renal Epithelial Cells 5-10 SEEN /hpf (0-5); Squamous Epithelial Cells - UA 0-5 SEEN /hpf (0-5); Transitional Epithelial - Ur 0-5 SEEN /hpf (0-5); White Blood Cells 0-5 SEEN /hpf (0-5)
--- NOTE | 2024-02-19 10:46 | HP.PCM.HOS_ITS ---
HPI - General General Date of Admission: 02/19/24 Date of Service: 02/19/24 Chief Complaint: Dyspnea, fatigue, productive cough. 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 unclear exact type with now recovered EF (07/29/2022 EF 35% with moderate global hypokinesis LV with recovery to EF 50% 03/2023), CAD who presents to [facility] ED on 12/20/23 with history of persistent dyspnea with recent history of COVID-19 viral syndrome diagnosis approximately 10 days prior however since then has been progressively weakening with increased shortness of breath, cough with productive sputum with also a left eye discharge with decreased appetite with poor intake over the last several days in addition to confusion prompting to bring him in for evaluation to be cautious. Workup in the ED included T97.8, heart rate 77, BP 120/69, respiratory rate 18, 85% on room air initially with improvement to 90% on 3 L and most recent repeat vitals T98.2 [place], heart rate 75, BP 133/73, respiratory rate 74, 93% on 4 L nasal cannula, CBC with WBC 24.9, hemoglobin 14.4, platelet 335 with left shift and lymphopenia, coags with INR 2.2, CMP with BUN/creatinine 31/1.34, GFR 54, glucose 133, hepatic profile with alk phos 120 otherwise not marked appearing, troponin 52, BNP 164.1, urinalysis pending upon requested evaluation of patient, blood culture x 2 pending per ED, chest x-ray with new right basilar consolidation, EKG with sinus rhythm with right bundle branch block with no acute evidence of ischemia. In the ED patient ministered DuoNeb therapy, Ortho mycin ointment to the left eye, IV Rocephin and azithromycin. PENDING SALE TO [facility] Medical History Former tobacco use 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 History of stroke CAD (coronary artery disease) Atrial fibrillation/flutter CKD (chronic kidney disease), stage III Cardiomyopathy Lung nodules BPH (benign prostatic hyperplasia) Rheumatoid arthritis Essential hypertension Hypertension HTN (hypertension) Colitis Home Medications ?Medication ?Instructions ?Recorded ?Last Taken ?Type hydroxychloroquine 200 mg tablet 400 mg PO .COMPLEX RHEUMATOID 06/23/22 12/14/22 History ARTHRITIS Handicap Placard #1 ea 09/17/22 Unknown Rx lisinopril 40 mg tablet 20 mg PO DAILY BLOOD PRESSURE 10/07/22 12/14/22 History furosemide 40 mg tablet 40 mg PO .PRN 11/22/22 Unknown History metoprolol succinate 50 mg 50 mg PO DAILY #90 tabs 06/09/23 Unknown Rx tablet,extended release 24 hr spironolactone 25 mg tablet 25 mg PO DAILY FLUID #30 tabs 08/01/23 Unknown Rx dapagliflozin propanediol 10 mg 10 mg PO DAILY DIABETES #30 tabs 08/23/23 Unknown Rx tablet (Farxiga) tramadol 50 mg tablet 50 mg PO BID PRN pain 11/22/23 Unknown History apixaban 5 mg tablet (Eliquis) 5 mg PO BID #180 tabs 12/13/23 Unknown Rx bupropion HCl 150 mg 24 hr tablet, 150 mg PO DAILY 02/19/24 Unknown History extended release mesalamine 0.375 gram 1.5 g PO DAILY 02/19/24 Unknown History capsule,extended release 24 hr Allergy/AdvReac Type Severity Reaction Status Date / Time etanercept (From Enbrel) AdvReac Rash Verified 11/22/23 14:17 Family History Mother Diabetes CAD (coronary artery disease) Myocardial infarction, Onset Age: 82 Father CAD (coronary artery disease) Brother CAD (coronary artery disease) Hypertension Surgical History History of cardioversion History of bilateral cataract extraction History of foot surgery History of hernia repair History of arthroscopy of knee History of bilateral knee replacement Social History household members: spouse housing: house Smoking Status: Former smoker how long ago did patient quit smokin years ago alcohol intake: current alcohol intake frequency: 0-2 drinks per day Alcohol type: beer details: wine substance use type: does not use caffeine: Yes Type: coffee Number of servings: 2 ROS ROS Narrative Admission Review of Systems: CONSTITUTIONAL: No weight loss, fever, chills, + weakness or fatigue. HEENT: + Cough, congestion, rhinorrhea, left eye discharge. Eyes: No visual loss, blurred vision, double vision or yellow sclerae. Ears, Nose, Throat: No hearing loss, sneezing SKIN: No rash or itching, lesions, wounds. CARDIOVASCULAR: No chest pain, chest pressure or chest discomfort, palpitations, edema, orthopnea, syncopal events. RESPIRATORY: + Dyspnea with productive cough. No marked wheezing, hemoptysis. GASTROINTESTINAL: + Poor appetite, anorexia. Chronic intermittent diarrhea which is baseline with underlying colitis history. No nausea, vomiting, abdominal pain, melena, BRBPR. GENITOURINARY: No dysuria, frequency, urgency or retention. NEUROLOGICAL: No headache, dizziness, syncope, paralysis, ataxia, numbness or tingling in the extremities, focal weakness, change in bowel or bladder control, seizure. MUSCULOSKELETAL: + muscle, back pain, joint pain or stiffness. HEMATOLOGIC: No anemia. + Easy bleeding/bruising. LYMPHATICS: No enlarged nodes. No history of splenectomy. PSYCHIATRIC: + History of anxiety and depression. ENDOCRINOLOGIC: No reports of sweating, cold or heat intolerance. No polyuria or polydipsia. ALLERGIES: No history of asthma, hives, eczema or rhinitis. Vital Signs Vital Signs Vital Signs: 02/19/24 08:59 02/19/24 09:01 02/19/24 09:10 Temperature 97.8 F Temperature Source Temporal Pulse Rate 77 Respiratory Rate 18 Respiratory Pattern Tachypnea Blood Pressure 128/69 H Blood Pressure Mean 88 Pulse Ox 85 90 Oxygen Delivery Method Room Air Nasal Cannula Oxygen Flow Rate (L/min) 3 02/19/24 09:12 02/19/24 09:27 02/19/24 09:38 Temperature Temperature Source Pulse Rate 73 Respiratory Rate 18 Respiratory Pattern Normal Blood Pressure Blood Pressure Mean Pulse Ox 94 94 Oxygen Delivery Method Nasal Cannula Nasal Cannula Oxygen Flow Rate (L/min) 4 4 02/19/24 10:01 Temperature 98.2 F Temperature Source Oral Pulse Rate 75 Respiratory Rate 74 H Respiratory Pattern Blood Pressure 133/73 H Blood Pressure Mean 93 Pulse Ox 93 Oxygen Delivery Method Nasal Cannula Oxygen Flow Rate (L/min) 4 Weight Weight: 167 lb 5.294 oz Body Mass Index (BMI) 21.4 Physical Exam Narrative Physical Examination: General: Awake, alert, oriented to self, place, , several historical aspects which is improved from previously she notes, remain cooperative, seated upright in the [facility] bed, fatigued and ill-appearing. Skin: Normal color, normal turgor, no icterus, no cyanosis except very staged ecchymoses, abrasions. HEENT: AT/NC, EOMI, PERRLA, mildly dry MM, no carotid bruits or JVD noted. Lungs: Diminished, greater bases, right greater than left, mildly coarse, no evidence of any distress, mildly increased respiratory rate, no rales, ronchi or wheezing. Heart: Regular rate and rhythm; no gallop, rub audible. Abdomen: Soft, NTTP, ND, hyperactive BS, no appreciated HSM. Extremities: No cyanosis, no clubbing, pedal to lane trace edema. Neurological: Patient awake, alert, oriented as noted, cognitive function improved as noted, nearing baseline intact; pupils equally reactive to light and accommodation, cranial nerves gross normal, moving all 4 extremities, no focal deficits, strength severely globally decreased Psychiatric: Affect appears fatigued, ill-appearing no acute evidence of depressive or anxiety feelings but does have underlying history. Results Lab / Micro Data 02/19/24 09:10 02/19/24 09:10 Labs: Laboratory Results - last 24 hr 02/19/24 09:10: WBC 24.9 H, RBC 4.62, Hgb 14.4, Hct 43.3, MCV 93.7, MCH 31.2, MCHC 33.3, RDW Std Deviation 48.6 H, RDW Coeff of Dominick 14.1, Plt Count 335, MPV 11.0, Immature Gran % (Auto) 2.400 H, Neut % (Auto) 90.1 H, Lymph % (Auto) 2.3 L , [place] % (Auto) 4.5, Eos % (Auto) 0.0, Baso % (Auto) 0.7, Absolute Neuts (auto) 22.4 H, Absolute Lymphs (auto) 0.57 L, Nucleated RBC % 0, Atypical Lymphocytes 1+, Toxic Granulation 1+, Toxic Vacuolation 1+, Dohle Bodies 1+, Platelet Estimate ADEQUATE, RBC Morphology NORM C+C, PT 24.6 H, INR 2.2, APTT 31.7, Sodium 137, Potassium 4.0, Chloride 106, Carbon Dioxide 21.0, Anion Gap 10, BUN 31 H, Creatinine 1.34 H, Estim Creat Clear Calc 41.69, Est GFR (MDRD) Af Amer 65, Est GFR (MDRD) Non-Af 54 L, BUN/Creatinine Ratio 23.1 H, Glucose 133 H, Calcium 9.6, Total Bilirubin 0.50, Direct Bilirubin 0.17, AST 35, ALT 34, A lkaline Phosphatase 120 H, Troponin I High Sens 52, B-Natriuretic Peptide 164.1 H, Total Protein 7.3, Albumin 2.5 L, Globulin 4.8 H 02/19/24 10:27: Urine Color Yellow, Urine Clarity Sl. Cloudy, Urine pH 6.0, Ur Specific [place] 1.025, Urine Protein 30 H, Urine Glucose (UA) 1000 H, Urine Ketones Negative, Urine Occult Blood 10 H, Urine Nitrite Negative, Urine Bilirubin Negative, Urine Urobilinogen Normal, Ur Leukocyte Esterase Negative, Urine RBC 0-5 SEEN, Urine WBC 0-5 SEEN, Ur Squamous Epith Cells 0-5 SEEN, Ur Transition Epith Cell 0-5 SEEN, Ur Renal Epithelial Cell 5-10 SEEN, Urine Bacteria 2+, Coarse Granular Casts 0-5 SEEN, Urine Mucus 0 SEEN Imaging Radiology Impression Chest X-Ray 02/19/24 09:45 IMPRESSION: New right basilar consolidation concerning for pneumonia. 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 unclear exact type with now recovered EF (07/29/2022 EF 35% with moderate global hypokinesis LV with recovery to EF 50% 03/2023), CAD who presents to [facility] ED on 12/20/23 with history of persistent dyspnea with recent history of COVID-19 viral syndrome diagnosis approximately 10 days prior however since then has been progressively weakening with increased shortness of breath, cough with productive sputum with also a left eye discharge with decreased appetite with poor intake over the last several days in addition to confusion prompting to bring him in for evaluation to be cautious. #1. Acute Encephalopathy secondary to Acute hypoxia (not consistent with acute hypoxic respiratory failure) secondary to recent COVID-19 viral syndrome with now superimposed bacterial CAP w/ associated Adult FTT: Will admit to [facility] given stable vital signs and responsive to oxygen, maintain on oxygen with wean as tolerated to room air as able, will maintain on ATC budesonide therapy, PRN albuterol, maintained on IV Rocephin and IV azithromycin HOB, IS parameters w/ pending sputum cultures, full respiratory viral panel and urine antigens. Bld cx x 2 obtained in the ED. PT/OT/case management consulted for discharge planning #2. Left eye conjunctivitis: Likely related with his acute presentation, will maintain on IV antibiotic therapy however for more focal treatment will initiate on erythromycin ointment, continue routine eye care. #3. CAD: 08/26/2022 cardiac catheterization with severe single-vessel posterior descending artery lesion out of proportion to the extent of cardiomyopathy with medical therapy decision at that time. Will continue patient home apixaban, metoprolol, lisinopril home regimen, not on statin therapy, unclear if potentially side effect/myalgias as etiology. #4. Chronic Kidney Disease Stage III based on GFR trending, unclear subtype: Admission BUN/Cr 31/1.34, GFR 54,, baseline renal function primarily 1.2-1.4 although has vacillated and most recently previous to current presentation 12/10/2022 creatinine 1.54, repeat BMP in AM. #5. Hypertension: Continue home regimen including lisinopril, metoprolol, spironolactone, clarifying but Lasix appears as needed thus will temporarily hold and judiciously hydrating given recent poor intake, PRN hydralazine. #6. Hyperlipidemia: Per current list does not appear to be on statin therapy, encourage continued outpatient follow-up. #7. PAF/flutter: We will continue patient home metoprolol and Eliquis home regimen. #8. History CVA: We will continue patient home Eliquis, hypertensive regimen, not on statin therapy per current list, encourage continued follow-up outpatient as previously arranged. #9. 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 #10. Rheumatoid arthritis: Clarifying home regimen, given infectious presentation low threshold to hold agents but per patient and family preference will continue hydroxychloroquine at this time. #11. IBD: Will continue home mesalamine regimen, encourage continued outpatient evaluation/follow-up with GI as previously arranged. #12. Anxiety and depression: We will continue patient home bupropion, regimen. #13. BPH with obstructive pathology: Not on any current regimen per medication list review, clarified to be certain, monitor for any obstructive process. #14. Former tobacco use: Encourage continued tobacco cessation. #15. DVT prophylaxis: Will continue patient home Eliquis regimen. #16. CODE status: Patient HCPOA is his who is present and living will is currently in place. Discussed CODE status at length including difference between FULL code, DNR-CCA and DNR-CC status. Following discussions about the differences in these status, requested DNR-CCA with allowance of intubation short-term. Advanced Care Planning Face to Face Time: 16 minutes. Charges/Coding Visit Charges Inpatient E&M: 80175 Init Hosp L3 Procedures Hospitalists Procedures: 15028 Advncd Care Plan 30 Min
[2024-02-19 11:23] LABS: Magnesium 2.5 mg/dL (1.6-2.6)
[2024-02-19] MEDS: 0.9% Normal Saline (1000mL) 1,000 ML 75 ML IV (13:45)
[2024-02-19] MEDS: Budesonide Respules 0.5 MG/2 ML AMPUL.NEB. INHALATION (20:28)
[2024-02-19] MEDS: APIXABAN 5 MG TABLET PO (21:00)
[2024-02-19] MEDS: 0.9% Saline Lock 10 ML Syringe IV (21:02)
[2024-02-20] VITALS (9 sets, daily range): BP systolic 121–163; BP diastolic 74–93; PULSE 61–109; RESP 16–20; TEMP 36.4–36.8; O2SAT 92–94; BMI 21.7
[2024-02-20 06:27] LABS: Absolute Neutrophil Count 20.6 X10^3/uL (2.0-7.7); Basophil# 0.07 X10^3/uL; Basophil% 0.3 % (0-1); Eosinophil# 0.02 X10^3/uL; Eosinophils% 0.1 % (0-5); Hematocrit 38.6 % (40-54); Hemoglobin 12.7 g/dL (13.0-16.5); Lymphocyte % 2.2 % (19-41); Mean Corp Hgb Conc 32.9 g/dL (32-36); Mean Corpuscular Hgb 30.8 pg (27.0-32.0); Mean Corpuscular Volume 93.7 fL (80-94); Mean Platelet Vol. 10.9 fl (6.2-12.0); Monocyte# 0.96 X10^3/uL; Monocyte% 4.2 % (0-10); NRBC Flagged by Analyzer 0 % (0-5); Neutrophil # 20.62 X10^3/uL (2.7-7.7); Neutrophil % 91.3 % (47-70); POSITIVE DIFFERENTIAL YES; Platelet Count 300 K/mm3 (150-450); RBC Distribution Width CV 14.2 % (11.6-14.6); Red Blood Count 4.12 M/mm3 (4.6-6.2); White Blood Count 22.6 K/mm3 (4.4-11.0)
[2024-02-20 06:55] LABS: ALB/GLOB Ratio 0.5 RATIO (0.9-2.4); AST(SGOT) 53 U/L (15-37); Alanine Aminotransfer ALT/SGPT 43 U/L (16-61); Albumin, Serum 2.1 g/dL (3.2-5.0); Alkaline Phosphatase 122 U/L (45-117); Anion Gap 10 (5-15); BUN 28 mg/dL (7-18); BUN/Creat Ratio 25.9 RATIO (10-20); Calcium,Total 8.8 mg/dL (8.5-10.1); Chloride 109 mmol/L (98-107); Creatinine, Serum 1.08 mg/dL (0.70-1.30); Differential Indicated SCAN CRITERIA MET; EST Glomerular Filtration Rate 69 mL/min (>60); Est Glom Filt Rate - Afr Amer 83 mL/min (>60); Estimated Creatinine Clearance 52.21 ml/min; Globulin 4.4 g/dL (2.2-4.2); Glucose 89 mg/dL (74-106); Potassium 3.7 mmol/L (3.5-5.1); Protein, Total 6.5 g/dL (6.4-8.2); Sodium Level 138 mmol/L (136-145)
[2024-02-20] MEDS: Budesonide Respules 0.5 MG/2 ML AMPUL.NEB. INHALATION ×2 (07:16→20:10)
[2024-02-20 07:32] LABS: Differential Comment SCANNED
[2024-02-20] MEDS: Metoprolol(XL)Succ 50 MG Tablet PO (08:51)
[2024-02-20] MEDS: Lisinopril 20 MG Tablet PO (08:52)
[2024-02-20] MEDS: buPROPion (XL) 150 MG TABLET.XL PO (08:52)
[2024-02-20] MEDS: Mesalamine 1.2 GM Tablet 2.4 GM PO (08:53)
[2024-02-20] MEDS: Hydroxychloroquine 200 MG Tablet 400 MG PO (08:53)
[2024-02-20] MEDS: APIXABAN 5 MG TABLET PO ×2 (08:54→22:37)
[2024-02-20] MEDS: Spironolactone 25 MG Tablet PO (08:55)
[2024-02-20] MEDS: Erythromycin Base 1 OPTH.TUBE 1 APPLIC LEFT EYE ×4 (08:56→22:47)
[2024-02-20] MEDS: Ceftriaxone 1 GM/50 ML BAG IV (10:17)
[2024-02-20] MEDS: 0.9% Normal Saline (100mL Bag) 100 ML 15 ML IV (10:17)
[2024-02-20] MEDS: 0.9% Saline Lock 10 ML Syringe IV (10:17)
[2024-02-20] MEDS: Azithromycin 500 MG in 0.9% Normal Saline (250mL Bag) 250 ML 250 MG IV (11:03)
--- NOTE | 2024-02-20 12:10 | PN.HOSP_ITS ---
Reason for Visit Reason for Visit: Diagnoses Pneumonia, unspecified organism (02/19/24) Subjective Subjective Saw patient at bedside this morning, present. Patient was mildly fatigued appearing but otherwise sitting up comfortably in bed and in no acute distress. He was breathing comfortably on 4 L nasal cannula at rest. Does not wear supplemental oxygen at baseline. Patient states that he feels better today than on admission yesterday but still more fatigued and short of breath compared to his baseline. notes that as of 2 weeks ago patient was active and doing things for himself around the house without issue. He became mildly fatigued with the COVID diagnosis but that this secondary pneumonia led to significant shortness of breath and fatigue with weakness. Patient denies any pain or discomfort this morning. No other new concerns this morning. Objective Data Objective Data Vital Signs: Vital Signs Temp Pulse Resp BP Pulse Ox O2 Del Method O2 Flow Rate 98.3 F 109 H 17 163/93 H 94 Nasal Cannula 4 02/20/24 08:20 02/20/24 08:51 02/20/24 08:20 02/20/24 08:51 02/20/24 08:20 02/20/24 08:20 02/20/24 11:55 Oxygen Flow Rate (L/min) 4 Oxygen Delivery Method Nasal Cannula Weight: 76.6 kg Body Mass Index (BMI) 21.7 Intake & Output: Intake and Output for Last 24 Hours 02/18/24 02/19/24 02/20/24 23:59 23:59 23:59 Intake Total 305 / 655 1751 / 1751 Output Total 100 / 375 625 / 625 Balance 205 / 280 1126 / 1126 Lab / Micro Data 02/20/24 06:02 02/20/24 06:02 Labs: Laboratory Results - last 24 hr 02/20/24 06:02: WBC 22.6 H, RBC 4.12 L, Hgb 12.7 L, Hct 38.6 L, MCV 93.7, MCH 30.8, MCHC 32.9, RDW Std Deviation 49.0 H, RDW Coeff of Dominick 14.2, Plt Count 300, MPV 10.9, Immature Gran % (Auto) 1.900 H, Neut % (Auto) 91.3 H, Lymph % (Auto) 2.2 L, [place] % (Auto) 4.2, Eos % (Auto) 0.1, Baso % (Auto) 0.3, Absolute Neuts (auto) 20.6 H, Absolute Lymphs (auto) 0.50 L, Nucleated RBC % 0, Differential Comment SCANNED, Sodium 138, Potassium 3.7, Chloride 109 H, Carbon Dioxide 19.0 L, Anion Gap 10, BUN 28 H, Creatinine 1.08, Estim Creat Clear Calc 52.21, Est GFR (MDRD) Af Amer 83, Est GFR (MDRD) Non-Af 69, BUN/Creatinine Ratio 25.9 H, Glucose 89, Calcium 8.8, Total Bilirubin 0.50, AST 53 H, ALT 43, Alkaline Phosphatase 122 H, Total Protein 6.5, Albumin 2.1 L, Globulin 4.4 H, A lbumin/Globulin Ratio 0.5 L Micro: Microbiology 02/19/24 10:27 Urine, Clean Catch Legionella Antigen - Final 02/19/24 10:27 Urine, Clean Catch Streptococcus pneumoniae Antigen (M - Final Physical Exam Const alert, oriented x3, no apparent distress and average body habitus Constitutional Narrative: Elderly male, thin appearing, mildly fatigued appearing, otherwise sitting up comfortably in bed, conversing normally, in no acute distress. General Appearance: cooperative and comfortable HEENT normocephalic, head/scalp atraumatic, hearing grossly normal bilaterally, nasal mucous membranes and turbinates normal and moist oral mucous membranes Eyes PERRL, EOMs intact bilaterally and conjunctivae normal Neck full ROM Chest inspection of chest normal Resp normal respiratory effort and no use of accessory muscles Resp Narrative: Breathing comfortably on 4 L nasal cannula at rest. Mildly decreased breath sounds in bilateral lung bases, worse on right. No wheezing or crackles noted. Cardio regular rate, regular rhythm, no murmurs and peripheral pulses 2+ throughout GI normal to inspection, nondistended, normoactive bowel sounds, soft to palpation, non-tender and non-distended Back/Spine normal ROM Extremity normal to inspection, full ROM and no pedal edema Skin no rashes or lesions noted Psych mental status grossly normal Psych Narrative: Flat affect. Assessment & Plan Assessment/Plan (1) Hypoxia: (2) Pneumonia: (3) COVID-19: PLAN: Plan Patient is an 88-year-old male who presented [facility] ED on 02/19/2024 with worsening shortness of breath and fatigue. 1. Acute hypoxia secondary to recent COVID-19 infection with suspected superimposed bacterial pneumonia ? Positive COVID test at urgent care on 02/10. Chest x-ray at ED visit on 02/13 unremarkable. Repeat chest x-ray on 02/18 showed new right basilar consolidation concerning for pneumonia. Infectious workup negative including negative COVID test here. WBC count 24 on admit, slowly improving. Continue treatment with IV ceftriaxone and azithromycin for now. If patient not much improved tomorrow we will consider adding steroids and scheduled DuoNebs. Continue to wean supplemental oxygen as able. 2. Acute debility ? PT/OT/case management following. Patient with fairly good therapy scores on hospital day 2, planning for home with home health care on discharge. 3. Left eye conjunctivitis ? Suspect related to acute infection. Treating with erythromycin ointment in addition to IV antibiotics as noted above. Monitor. Chronic medical conditions: ? History of nonobstructive CAD, hypertension, hyperlipidemia, history of heart failure with recovered ejection fraction, history of CVA: Stable. Continue home Toprol, spironolactone and lisinopril. Not on home statin for unclear reason. ? Paroxysmal A-fib: Stable in normal sinus rhythm since admit. Continue home Toprol and Eliquis. ? CKD stage III: Creatinine 1.34 on admit, baseline 1.0-1.3. Stable at baseline. ? IBD: Continue home mesalamine. ? Anxiety/depression: Continue home bupropion. ? Rheumatoid arthritis: Continue home hydroxychloroquine. ? Chronic pain: Continue home tramadol twice daily as needed. ? Former tobacco use: Encouraged continued cessation. DVT prophylaxis: Not indicated, on Eliquis CODE STATUS: DNR CCA, okay to intubate Expected disposition: Home with home health care, 2 to 3 days Total clinical time spent by myself addressing the patient's medical issues, reviewing all the data, and collaborating with patient's care team: 35 minutes. Charges/Coding Visit Charges Inpatient E&M: 17897 Subs Hosp L2
--- NOTE | 2024-02-20 12:11 | CHAPLAIN ---
Type of Pastoral Visit _x__ Initial Visit ___ Follow-up Visit ___ On-call Visit ___ General Patient Visit ___ Spiritual Assessment ___ Family Conference ___ Bereavement ___ Rapid Response ___ Code Blue ___ Other (describe below) Pastoral Care Referral From _x__ Patient _x__ Family ___ Nurse ___ Physician ___ Hangar Attendant ___ Mock Up Builder ___ Other (describe below) Sacrament/Intervention _x__ Active listening ___ Anointing ___ Gnosticism ___ Bereavement ___ Communion ___ Tresa exploration ___ ___ Life review _x__ Prayer ___ Reconciliation ___ Sacrament of Sick _x__ Supportive presence ___ Wedding ___ Other (describe below) Pastoral Comments patient and spouse are in the room; spouse does most of the talking and giving information on health and their spiritual connections; pt is confirming of the information and affirms his tresa in God for his life; spouse is obvious in her support and her tresa that 'he will get better'; pt has not had much sickness in life and this is unusual for him; both welcomespresence and prayer
--- NOTE | 2024-02-20 15:20 | CASEMGMT ---
IRMA PURDY Assessment: Face to Face with pt for initial transition planning/care coordination assessment. IRMA PURDY introduced self and role at [facility], pt voices understanding and consents to assessment. Pt is A&O x4 and answers all questions appropriately at this time. Pt restin in bed in no distress. Pt in room, sitting by bedside. Pt agreeable to discussing DC planning with present. Care providers, pharmacy, and demographics verified/updated. Admitting Dx: Hypoxia, Pneumonia, Adult FTT PCP: Ethan Specialists: Priya, ski patrol; RA Mally; [facility] Gastrologist Preferred Pharmacy: [facility] Insurance: [employer] Prescription Benefit: yes LNOK: , [facility] Arrangements: Pt lives with in a ranch home with 1 small step to enter. ADLs: Previously Pt was I before getting COVID 2 weeks ago. Transportation: Pt drives self and denies concerns with transportation. DME: [employer] HHC/SNF: Denies Hx of. Pt states would like to have HHC at time of DC. Pt is interested in obtaining a Walker to go home with as well. Pt does not currently use O2 at home. Pt was provided a verbal list of DME providers in the area, if needs to go home with O2 Pt chose [facility] for O2 and Walker needs. Pt would also like a list of private duty aides in the area. Pt states no further concerns/needs. CM to follow. Advised pt to ask CM if any further question/concerns/needs arise, voices understanding. Pt Goal: Home with HHC Plan: Home with DME, HHC, follow for O2 Needs. Benita SOLIS CM
--- NOTE | 2024-02-20 15:30 | CASEMGMT ---
Addendum entered by Leah Hughes 02/20/24 16:26: Provided Pt list of local private duty home health aides. Original Note: IRMA CM into pt room, provided printed list of local HHC agencies covered by pt insurance.
--- NOTE | 2024-02-20 15:57 | CASEMGMT ---
Addendum entered by Michelle El 02/20/24 16:02: Referral sent to [facility] via [facility] at this time. Original Note: RN CM into pt room, pt lying in bed in no distress. Pt states she reviewed the [facility] list and has chosen 1. [facility] 2. [facility] 3. [facility]. TC to Autumn at [facility], she states they are unable to take referrals at this time as they are at capacity.
[2024-02-20] MEDS: Menthol/Lanolin/Calamine/Znox 113 GM Tube 1 APPLIC TOPICAL (22:36)
[2024-02-21] VITALS (12 sets, daily range): BP systolic 88–120; BP diastolic 57–77; PULSE 70–96; RESP 18–28; TEMP 36.3–36.7; O2SAT 0–97; BMI 21.9
[2024-02-21 06:16] LABS: Hematocrit 38.6 % (40-54); Hemoglobin 12.8 g/dL (13.0-16.5); Mean Corp Hgb Conc 33.2 g/dL (32-36); Mean Corpuscular Hgb 30.8 pg (27.0-32.0); Platelet Count 319 K/mm3 (150-450); RBC Distribution Width CV 14.3 % (11.6-14.6); RBC Distribution Width SD 49.1 fl (35.1-43.9); Red Blood Count 4.15 M/mm3 (4.6-6.2)
[2024-02-21 06:40] LABS: Anion Gap 8 (5-15); BUN 32 mg/dL (7-18); BUN/Creat Ratio 29.6 RATIO (10-20); Calcium,Total 9.1 mg/dL (8.5-10.1); Chloride 108 mmol/L (98-107); Creatinine, Serum 1.08 mg/dL (0.70-1.30); EST Glomerular Filtration Rate 69 mL/min (>60); Est Glom Filt Rate - Afr Amer 83 mL/min (>60); Estimated Creatinine Clearance 52.75 ml/min; Glucose 102 mg/dL (74-106); Potassium 3.6 mmol/L (3.5-5.1); Sodium Level 136 mmol/L (136-145)
[2024-02-21] MEDS: Albuterol 2.5 MG/3 ML VIAL.NEB. INHALATION (07:40)
[2024-02-21] MEDS: Budesonide Respules 0.5 MG/2 ML AMPUL.NEB. INHALATION (07:40)
--- NOTE | 2024-02-21 09:49 | NURSING ---
trial stopped d/t pt tolerance
--- NOTE | 2024-02-21 09:54 | CASEMGMT ---
Addendum entered by Michelle El 02/21/24 16:26: IRMA PURDY into pt room, pt and aware that TCU will review referral . Pt and pt aware that pt will stay until . wanted a definite on TCU but she is aware the referral will be reviewed for acceptance. Pt aware that [facility] is still in the works as well. IRMA PURDY to follow on . grateful and thankful. Addendum entered by Michelle El 02/21/24 11:21: 1111- IRMA PURDY noted pt oxygen trial incomplete d/t pt tolerance. Spoke with pt nurse who reports low bp. RN GURWINDER into pt room, pt at bedside. Pt states pt is much worse today. Discussed with her the accepting agency of [facility]. She states that she can not take care of pt like this. 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 She states she would only be open to [facility] at this time. Discussed the care that HH will provide and at this time, it is not felt to be enough. Notified Tamara that pt will not dc today and likely not tomorrow. IRMA PURDY to touch base on . Updated SW on pt preference. Did discuss with other options as well for SNF and made aware a list can be provided. She would like to know the availability of [facility] TCU first. Original Note: [facility] has declined pt for services. The referral was also inadvertently sent to [facility] who accepted pt. [facility] notified that they are agency of choice at this time via [employer].
[2024-02-21] MEDS: Menthol/Lanolin/Calamine/Znox 113 GM Tube 1 APPLIC TOPICAL ×3 (09:56→19:55)
[2024-02-21] MEDS: 0.9% Saline Lock 10 ML Syringe IV ×2 (09:57→21:27)
[2024-02-21] MEDS: Erythromycin Base 1 OPTH.TUBE 1 APPLIC LEFT EYE ×4 (09:57→19:55)
[2024-02-21] MEDS: Hydroxychloroquine 200 MG Tablet 400 MG PO (09:57)
[2024-02-21] MEDS: Mesalamine 1.2 GM Tablet 2.4 GM PO (09:57)
[2024-02-21] MEDS: APIXABAN 5 MG TABLET PO ×2 (09:57→19:55)
[2024-02-21] MEDS: Ceftriaxone 1 GM/50 ML BAG IV (09:57)
[2024-02-21] MEDS: buPROPion (XL) 150 MG TABLET.XL PO (09:58)
[2024-02-21] MEDS: Azithromycin 500 MG in 0.9% Normal Saline (250mL Bag) 250 ML 250 MG IV (10:38)
--- NOTE | 2024-02-21 11:35 | PCM.PN.HOSP ---
Reason for Visit Reason for Visit: Diagnoses Pneumonia, unspecified organism (02/19/24) Hypoxemia (02/19/24) COVID-19 (02/19/24) Subjective Subjective Saw patient at bedside this morning, present. Patient unfortunately appeared more fatigued and less alert this morning than yesterday. He was able to tell me name and that he was at [facility] but thought the year was 2008 and month was March. His blood pressures were running lower in the 90s over 70s this morning. Noted to that we will hold his home blood pressure medications and give IV fluids today and monitor him closely. Objective Data Objective Data Vital Signs: Vital Signs Temp Pulse Resp BP Pulse Ox O2 Del Method O2 Flow Rate 97.6 F L 72 20 H 97/61 90 Nasal Cannula 2 02/21/24 09:54 02/21/24 09:56 02/21/24 09:54 02/21/24 09:56 02/21/24 09:54 02/21/24 09:54 02/21/24 09:54 Oxygen Flow Rate (L/min) 2 Oxygen Delivery Method Nasal Cannula Weight: 77.4 kg Body Mass Index (BMI) 21.9 Intake & Output: Intake and Output for Last 24 Hours 02/19/24 02/20/24 02/21/24 23:59 23:59 23:59 Intake Total 305 / 655 2556 / 2706 400 / 400 Output Total 100 / 375 625 / 625 Balance 205 / 280 1931 / 2081 400 / 400 Medical Nutrition Assessment Dietitian: Malnutrition Criteria Met Start: 02/20/24 12:10 Freq: Status: Active Protocol: Document 02/20/24 12:10 SLA (Rec: 02/20/24 12:10 SLA [id number]) Nutrition Malnutrition Evidence of Malnutrition Exists Yes Malnutrition (severe): Acute Illness/Injury Evidenced By Suboptimal Energy Intake ( Severe),Weight Loss (Severe) Clinical Problem Acute Disease or Injury Related Malnutrition Etiology related to recent dx of covid and now causing inadequate energy intake Signs/Symptoms as evidenced by 5% unintentional wt loss and po intake meeting <75% of est nutritional needs x 2-3 wks relief 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 Rec consider appetite stimulant if po intake fails to improve Lab / Micro Data 02/21/24 05:59 02/21/24 05:59 Labs: Laboratory Results - last 24 hr 02/21/24 05:59: WBC 17.0 H, RBC 4.15 L, Hgb 12.8 L, Hct 38.6 L, MCV 93.0, MCH 30.8, MCHC 33.2, RDW Std Deviation 49.1 H, RDW Coeff of Dominick 14.3, Plt Count 319, MPV 11.0, Sodium 136, Potassium 3.6, Chloride 108 H, Carbon Dioxide 20.0 L, Anion Gap 8, BUN 32 H, Creatinine 1.08, Estim Creat Clear Calc 52.75, Est GFR (MDRD) Af Amer 83, Est GFR (MDRD) Non-Af 69, BUN/Creatinine Ratio 29.6 H, Glucose 102, Calcium 9.1 Micro: Microbiology 02/19/24 09:41 Blood Culture (Wb) - Anticubital Right Blood Culture - Preliminary No growth in 48 hours. 02/19/24 09:41 Blood Culture (Wb) - Left Wrist Blood Culture - Preliminary No growth in 48 hours. 02/19/24 13:05 Sputum, Expectorated/Coughed Gram Stain - Final 02/19/24 13:15 Mucosa - Nasopharyngeal Respiratory Panel (PCR) - Final 02/19/24 10:27 Urine, Clean Catch Legionella Antigen - Final 02/19/24 10:27 Urine, Clean Catch Streptococcus pneumoniae Antigen (M - Final Physical Exam Const alert, oriented x3, no apparent distress and average body habitus Constitutional Narrative: Elderly male, thin appearing, more fatigued appearing this morning and alert to person and place, otherwise sitting up comfortably in bed and in no acute distress. General Appearance: cooperative and comfortable HEENT normocephalic, head/scalp atraumatic, hearing grossly normal bilaterally and nasal mucous membranes and turbinates normal Eyes PERRL, EOMs intact bilaterally and conjunctivae normal Neck full ROM Chest inspection of chest normal Resp normal respiratory effort and no use of accessory muscles Resp Narrative: Breathing comfortably on 4 L nasal cannula at rest. Mildly decreased breath sounds in bilateral lung bases, worse on right. No wheezing or crackles noted. Stable. Cardio regular rate, regular rhythm, no murmurs and peripheral pulses 2+ throughout GI normal to inspection, nondistended, normoactive bowel sounds, soft to palpation, non-tender and non-distended Back/Spine normal ROM Extremity normal to inspection, full ROM and no pedal edema Skin no rashes or lesions noted Assessment & Plan Assessment/Plan (1) Hypoxia: (2) Pneumonia: (3) COVID-19: PLAN: Plan Patient is an 88-year-old male who presented [facility] ED on 02/19/2024 with worsening shortness of breath and fatigue. 1. Acute hypoxia secondary to recent COVID-19 infection with suspected superimposed bacterial pneumonia ? Positive COVID test at urgent care on 02/10. Chest x-ray at ED visit on 02/13 unremarkable. Repeat chest x-ray on 02/18 showed new right basilar consolidation concerning for pneumonia. Infectious workup negative including negative COVID test here. WBC count 24 on admit, improving. Continue treatment with IV ceftriaxone and azithromycin for now. Will hold on steroids and scheduled DuoNebs for now. Continue to wean supplemental oxygen as able. 2. Acute debility ? PT/OT/case management following. Patient with fairly good therapy scores on hospital day 2 but had worsening mental status on hospital day 3 as noted below. Tentatively planning for home with home health care if patient improves. 3. Left eye conjunctivitis ? Suspect related to acute infection. Treating with erythromycin ointment in addition to IV antibiotics as noted above. Monitor. 4. Mild encephalopathy, toxic versus metabolic ? Patient more fatigued and less alert on 02/20. Only alert and oriented to person and place, not oriented to time. May be secondary to low blood pressures in setting of home BP medications and recent poor p.o. intake. Will hold home BP medications and give IV fluids today and assess response. Chronic medical conditions: ? History of nonobstructive CAD, hypertension, hyperlipidemia, history of heart failure with recovered ejection fraction, history of CVA: Holding home Toprol, spironolactone and lisinopril for now as noted above. Not on home statin for unclear reason. ? Paroxysmal A-fib: Stable in normal sinus rhythm since admit. Continue home Eliquis, holding home Toprol. ? CKD stage III: Creatinine 1.34 on admit, baseline 1.0-1.3. Stable at baseline. ? IBD: Continue home mesalamine. ? Anxiety/depression: Continue home bupropion. ? Rheumatoid arthritis: Continue home hydroxychloroquine. ? Chronic pain: Continue home tramadol twice daily as needed. ? Former tobacco use: Encouraged continued cessation. DVT prophylaxis: Not indicated, on Eliquis CODE STATUS: DNR CCA, okay to intubate Expected disposition: TBD Total clinical time spent by myself addressing the patient's medical issues, reviewing all the data, and collaborating with patient's care team: 35 minutes. Charges/Coding Visit Charges Inpatient E&M: 96567 Subs Hosp L2
[2024-02-21] MEDS: 0.9% Normal Saline (1000mL) 1,000 ML 250 ML IV (12:07)
--- NOTE | 2024-02-21 12:43 | CASEMGMT ---
Addendum entered by Sridevi Velásquez 02/21/24 16:53: Social Work- TCU reports that they will review referral on 02/22 when pt is medically stable. MEREDITH Shields Original Note: Social Work- SW notified by RNCM that pt and pt would like referral for TCU at d/c. Pt is not medically ready today. SW completed referral to TCU and advised that pt is not medically stable at this time. SW remains available to follow. MEREDITH Shields
--- NOTE | 2024-02-21 12:58 | CHAPLAIN ---
Type of Pastoral Visit ___ Initial Visit _x__ Follow-up Visit ___ On-call Visit ___ General Patient Visit ___ Spiritual Assessment ___ Family Conference ___ Bereavement ___ Rapid Response ___ Code Blue ___ Other (describe below) Pastoral Care Referral From ___ Patient _x__ Family ___ Nurse ___ Physician ___ Grainer Machine ___ Roadside Mechanic ___ Other (describe below) Sacrament/Intervention _x__ Active listening ___ Anointing ___ Zoroastrianism ___ Bereavement ___ Communion ___ Tresa exploration ___ ___ Life review _x__ Prayer ___ Reconciliation ___ Sacrament of Sick ___ Supportive presence ___ Wedding ___ Other (describe below) Pastoral Comments found the spouse of this patient outside of the room and looking concerned and tearful; offered support and spouse speaks of the decline of the patient and changes in him that were not there yesterday; spouse admits that this is a shock and I have to be strong for him right now; spouse is encouraged to take some deep breaths and to focus on her tresa in God as she expressed yesterday; listened to spouse share her concerns and gave supportive presence; offered to pray and spouse readily agreed saying, this was a God appointed visit at just the right time as she went back into the room of the patient
[2024-02-21] MEDS: Acetaminophen 325 MG Tablet 650 MG PO (14:11)
[2024-02-21] MEDS: guaiFENesin 10 ML UDC (200MG/10ML) 20 ML PO (14:11)
[2024-02-21] MEDS: Ipratropium/Albuterol Sulfate 3 ML AMPUL.NEB INHALATION (19:45)
[2024-02-22] VITALS (11 sets, daily range): BP systolic 96–112; BP diastolic 68–84; PULSE 58–91; RESP 16–20; TEMP 36.3–36.9; O2SAT 93–96; BMI 21.9
--- NOTE | 2024-02-22 02:34 | NURSING ---
pt has yet to void this hs since 1730 yesterday. bladder scan completed at this time and value was 465cc. rn made aware.
--- NOTE | 2024-02-22 04:09 | NURSING ---
pt bladder scanned at this time and value was 502, pt encouraged to try and void and did 275cc. pt re bladder scanned and value was 233
[2024-02-22 05:24] LABS: Hematocrit 40.9 % (40-54); Hemoglobin 13.5 g/dL (13.0-16.5); Mean Corpuscular Hgb 30.6 pg (27.0-32.0); Mean Corpuscular Volume 92.7 fL (80-94); Mean Platelet Vol. 11.3 fl (6.2-12.0); Platelet Count 352 K/mm3 (150-450); RBC Distribution Width CV 14.4 % (11.6-14.6); RBC Distribution Width SD 49.4 fl (35.1-43.9); Red Blood Count 4.41 M/mm3 (4.6-6.2); White Blood Count 12.5 K/mm3 (4.4-11.0)
[2024-02-22] MEDS: 0.9% Saline Lock 10 ML Syringe IV (05:50)
[2024-02-22 06:02] LABS: Anion Gap 8 (5-15); BUN 44 mg/dL (7-18); BUN/Creat Ratio 34.4 RATIO (10-20); Calcium,Total 9.2 mg/dL (8.5-10.1); Chloride 111 mmol/L (98-107); Creatinine, Serum 1.28 mg/dL (0.70-1.30); EST Glomerular Filtration Rate 57 mL/min (>60); Est Glom Filt Rate - Afr Amer 68 mL/min (>60); Estimated Creatinine Clearance 44.68 ml/min; Glucose 147 mg/dL (74-106); Potassium 3.8 mmol/L (3.5-5.1); Sodium Level 138 mmol/L (136-145)
[2024-02-22] MEDS: Ipratropium/Albuterol Sulfate 3 ML AMPUL.NEB INHALATION ×3 (07:31→19:17)
[2024-02-22] MEDS: dexAMETHasone 4 MG/ML Vial 2 MG IV (08:37)
[2024-02-22] MEDS: Lactated Ringers 1,000 ML 250 ML IV (08:38)
[2024-02-22] MEDS: BENZOCAINE/MENTHOL 1 LOZENGE MUCOUS MEM (08:42)
[2024-02-22] MEDS: Erythromycin Base 1 OPTH.TUBE 1 APPLIC LEFT EYE ×3 (08:43→20:28)
[2024-02-22] MEDS: APIXABAN 5 MG TABLET PO ×2 (08:43→20:28)
[2024-02-22] MEDS: buPROPion (XL) 150 MG TABLET.XL PO (08:44)
[2024-02-22] MEDS: Mesalamine 1.2 GM Tablet 2.4 GM PO (08:44)
[2024-02-22] MEDS: Hydroxychloroquine 200 MG Tablet 400 MG PO (08:46)
[2024-02-22] MEDS: Ceftriaxone 1 GM/50 ML BAG IV (10:52)
[2024-02-22] MEDS: Menthol/Lanolin/Calamine/Znox 113 GM Tube 1 APPLIC TOPICAL ×3 (10:59→20:29)
[2024-02-22] MEDS: Azithromycin 500 MG in 0.9% Normal Saline (250mL Bag) 250 ML 250 MG IV (10:59)
--- NOTE | 2024-02-22 11:05 | PCM.PN.HOSP ---
Reason for Visit Reason for Visit: Diagnoses Pneumonia, unspecified organism (02/19/24) Hypoxemia (02/19/24) COVID-19 (02/19/24) Subjective Subjective Saw patient at bedside this morning, and friend present. Patient appears much improved today from yesterday, is more awake and alert and answering all questions appropriately for me. notes that his appetite is much improved today as well. He does continue to need supplemental oxygen at rest but is breathing feels improved. No other new concerns today. Objective Data Objective Data Vital Signs: Vital Signs Temp Pulse Resp BP Pulse Ox O2 Del Method O2 Flow Rate 98.4 F 63 18 108/84 H 93 Nasal Cannula 1 02/22/24 08:53 02/22/24 08:53 02/22/24 08:53 02/22/24 08:53 02/22/24 08:53 02/22/24 08:53 02/22/24 07:34 Oxygen Flow Rate (L/min) 1 Oxygen Delivery Method Nasal Cannula Weight: 77.7 kg Body Mass Index (BMI) 21.9 Intake & Output: Intake and Output for Last 24 Hours 02/20/24 02/21/24 02/22/24 23:59 23:59 23:59 Intake Total 2556 / 2706 1715 / 1715 60 / 60 Output Total 625 / 625 550 / 550 Balance 1930 1715 / 1715 -490 / -490 Medical Nutrition Assessment Dietitian: Malnutrition Criteria Met Start: 02/20/24 12:10 Freq: Status: Active Protocol: Document 02/20/24 12:10 SLA (Rec: 02/20/24 12:10 SLA [email or web address]) Nutrition Malnutrition Evidence of Malnutrition Exists Yes Malnutrition (severe): Acute Illness/Injury Evidenced By Suboptimal Energy Intake ( Severe),Weight Loss (Severe) Clinical Problem Acute Disease or Injury Related Malnutrition Etiology related to recent dx of covid and now causing inadequate energy intake Signs/Symptoms as evidenced by 5% unintentional wt loss and po intake meeting <75% of 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 Rec consider appetite stimulant if po intake fails to improve Lab / Micro Data 02/22/24 05:00 02/22/24 05:00 Labs: Laboratory Results - last 24 hr 02/22/24 05:00: WBC 12.5 H, RBC 4.41 L, Hgb 13.5, Hct 40.9, MCV 92.7, MCH 30.6, MCHC 33.0, RDW Std Deviation 49.4 H, RDW Coeff of Dominick 14.4, Plt Count 352, MPV 11.3, Sodium 138, Potassium 3.8, Chloride 111 H, Carbon Dioxide 19.0 L, Anion Gap 8, BUN 44 H, Creatinine 1.28, Estim Creat Clear Calc 44.68, Est GFR (MDRD) Af Amer 68, Est GFR (MDRD) Non-Af 57 L, BUN/Creatinine Ratio 34.4 H, Glucose 147 H, Calcium 9.2 Micro: Microbiology 02/19/24 13:05 Sputum, Expectorated/Coughed Gram Stain - Final 02/19/24 13:05 Sputum, Expectorated/Coughed Respiratory Culture - Final Haemophilus influenzae 02/19/24 09:41 Blood Culture (Wb) - Anticubital Right Blood Culture - Preliminary No growth in 48 hours. 02/19/24 09:41 Blood Culture (Wb) - Left Wrist Blood Culture - Preliminary No growth in 48 hours. 02/19/24 13:15 Mucosa - Nasopharyngeal Respiratory Panel (PCR) - Final 02/19/24 10:27 Urine, Clean Catch Legionella Antigen - Final 02/19/24 10:27 Urine, Clean Catch Streptococcus pneumoniae Antigen (M - Final Physical Exam Const alert, oriented x3, no apparent distress and average body habitus Constitutional Narrative: Elderly male, thin appearing, much improved today from yesterday, good energy and alert and oriented x 3, sitting up comfortably in bed and conversing normally, in no acute distress. General Appearance: cooperative and comfortable HEENT normocephalic, head/scalp atraumatic, hearing grossly normal bilaterally and nasal mucous membranes and turbinates normal Eyes PERRL, EOMs intact bilaterally and conjunctivae normal Neck full ROM Chest inspection of chest normal Resp normal respiratory effort and no use of accessory muscles Resp Narrative: Breathing comfortably on 2 L nasal cannula at rest. Mildly decreased breath sounds in bilateral lung bases, worse on right, improving. No wheezing or crackles noted. Cardio regular rate, regular rhythm, no murmurs and peripheral pulses 2+ throughout GI normal to inspection, nondistended, normoactive bowel sounds, soft to palpation, non-tender and non-distended Back/Spine normal ROM Extremity normal to inspection, full ROM and no pedal edema Skin no rashes or lesions noted Assessment & Plan Assessment/Plan (1) Hypoxia: (2) Pneumonia: (3) COVID-19: PLAN: Plan Patient is an 88-year-old male who presented [facility] ED on 02/19/2024 with worsening shortness of breath and fatigue. 1. Acute hypoxia secondary to recent COVID-19 infection with superimposed haemophilus influenza pneumonia ? Positive COVID test at urgent care on 02/10. Chest x-ray at ED visit on 02/13 unremarkable. Repeat chest x-ray on 02/18 showed new right basilar consolidation concerning for pneumonia. Had negative COVID test here on admission. Sputum culture positive for haemophilus influenza. WBC count 24 on admit with daily improvement. Started low-dose steroids and scheduled DuoNebs on 02/20 with good improvement. Will continue IV antibiotics, steroids and scheduled DuoNebs for today. If patient continues to appear improved tomorrow, will likely be okay for discharge home with home health care. Will need home oxygen testing prior to discharge. 2. Acute debility ? PT/OT/case management following. Planning for home with home health care on discharge. 3. Left eye conjunctivitis ? Suspect related to acute infection. Treating with erythromycin ointment in addition to IV antibiotics as noted above. Monitor. 4. Mild encephalopathy, resolved ? Patient more fatigued and less alert on 02/20. Only alert and oriented to person and place, not oriented to time. Suspected secondary to low blood pressures in setting of home BP medications, recent poor p.o. intake and pneumonia as noted above. Held home BP meds, give IV fluids and started steroids and scheduled DuoNebs for treatment on 02/20 as noted above and patient much improved on 02/21. Continue treatment as above. Chronic medical conditions: ? History of nonobstructive CAD, hypertension, hyperlipidemia, history of heart failure with recovered ejection fraction, history of CVA: Holding home Toprol, spironolactone and lisinopril for now as noted above. Will need to determine if patient is able to restart these medications on discharge. Not on home statin for unclear reason. ? Paroxysmal A-fib: Stable in normal sinus rhythm since admit. Continue home Eliquis, holding home Toprol. ? CKD stage III: Creatinine 1.34 on admit, baseline 1.0-1.3. Stable at baseline. ? IBD: Continue home mesalamine. ? Anxiety/depression: Continue home bupropion. ? Rheumatoid arthritis: Continue home hydroxychloroquine. ? Chronic pain: Continue home tramadol twice daily as needed. ? Former tobacco use: Encouraged continued cessation. DVT prophylaxis: Not indicated, on Eliquis CODE STATUS: DNR CCA, okay to intubate Expected disposition: Home with home health care, 1 to 2 days Total clinical time spent by myself addressing the patient's medical issues, reviewing all the data, and collaborating with patient's care team: 35 minutes. Charges/Coding Visit Charges Inpatient E&M: 03595 Subs Hosp L2
[2024-02-23] VITALS (11 sets, daily range): BP systolic 119–146; BP diastolic 69–94; PULSE 60–118; RESP 16–20; TEMP 36.6–37.1; O2SAT 94–98; BMI 22.2
[2024-02-23 06:30] LABS: Hematocrit 37.9 % (40-54); Hemoglobin 12.7 g/dL (13.0-16.5); Mean Corp Hgb Conc 33.5 g/dL (32-36); Mean Corpuscular Hgb 30.7 pg (27.0-32.0); Mean Corpuscular Volume 91.5 fL (80-94); Mean Platelet Vol. 11.4 fl (6.2-12.0); Platelet Count 389 K/mm3 (150-450); RBC Distribution Width CV 14.6 % (11.6-14.6); RBC Distribution Width SD 49.3 fl (35.1-43.9); Red Blood Count 4.14 M/mm3 (4.6-6.2); White Blood Count 22.7 K/mm3 (4.4-11.0)
[2024-02-23 06:50] LABS: Anion Gap 8 (5-15); BUN 67 mg/dL (7-18); BUN/Creat Ratio 40.9 RATIO (10-20); Calcium,Total 8.9 mg/dL (8.5-10.1); Chloride 112 mmol/L (98-107); Creatinine, Serum 1.64 mg/dL (0.70-1.30); EST Glomerular Filtration Rate 42 mL/min (>60); Est Glom Filt Rate - Afr Amer 51 mL/min (>60); Estimated Creatinine Clearance 35.32 ml/min; Glucose 141 mg/dL (74-106); Potassium 3.9 mmol/L (3.5-5.1); Sodium Level 138 mmol/L (136-145)
[2024-02-23] MEDS: Ipratropium/Albuterol Sulfate 3 ML AMPUL.NEB INHALATION ×3 (07:07→19:31)
[2024-02-23] MEDS: Hydroxychloroquine 200 MG Tablet 400 MG PO (08:19)
[2024-02-23] MEDS: APIXABAN 5 MG TABLET PO ×2 (08:19→21:47)
[2024-02-23] MEDS: buPROPion (XL) 150 MG TABLET.XL PO (08:19)
[2024-02-23] MEDS: Mesalamine 1.2 GM Tablet 2.4 GM PO (08:19)
[2024-02-23] MEDS: Erythromycin Base 1 OPTH.TUBE 1 APPLIC LEFT EYE ×4 (08:20→21:47)
--- NOTE | 2024-02-23 09:11 | CASEMGMT ---
Addendum entered by Michelle El 02/23/24 16:11: SW met with pt and and pt will plan to go home with [facility]. Updated [facility] that pt will dc tomorrow. Addendum entered by Michelle El 02/23/24 10:59: IRMA PURDY into pt room, pt present. Pt and would like to see how he does today with therapy prior to making a decision if pt can return home with [facility] vs [facility]. TC to therapy to make aware. Pt and will be thinking about if they can manage at home when the therapy session takes place. Pt states that they are going to celebrate their 50th anniversary in March and she wants pt much better for this. IRMA PURDY to follow. Original Note: IRMA PURDY into pt room, pt sitting up in bed in no distress. Discussed with pt how therapy went yesterday and he states he feels he did pretty well. Noted therapy notes were better than prior day. Pt not present. IRMA PURDY to check back when is present and see how therapy goes today. Pt much more alert today.
[2024-02-23] MEDS: Menthol/Lanolin/Calamine/Znox 113 GM Tube 1 APPLIC TOPICAL ×4 (11:16→21:47)
[2024-02-23] MEDS: Ceftriaxone 1 GM/50 ML BAG IV (11:16)
[2024-02-23] MEDS: Azithromycin 500 MG in 0.9% Normal Saline (250mL Bag) 250 ML 250 MG IV (11:21)
--- NOTE | 2024-02-23 13:34 | PN_ITS ---
Subjective Subjective Patient seen and examined. His was by his bedside. He had no complaints. He had an uneventful night. Review of systems is otherwise negative. Cr has trended upwards to 1.64 today. Objective Data Objective Data Vital Signs: Vital Signs Temp Pulse Resp BP Pulse Ox O2 Del Method O2 Flow Rate 98.3 F 68 18 132/81 H 97 Nasal Cannula 2 02/23/24 08:00 02/23/24 08:00 02/23/24 08:52 02/23/24 08:00 02/23/24 08:00 02/23/24 08:52 02/23/24 08:52 Oxygen Flow Rate (L/min) 2 Oxygen Delivery Method Nasal Cannula Weight: 173 lb 8.061 oz Body Mass Index (BMI) 22.2 Intake & Output: Intake and Output for Last 24 Hours 02/21/24 02/22/24 02/23/24 23:59 23:59 23:59 Intake Total 1715 / 1715 2014 305 / 305 Output Total 750 / 1050 300 / 300 Balance 1715 / 1715 1265 / 965 Medical Nutrition Assessment Dietitian: Malnutrition Criteria Met Start: 02/20/24 12:10 Freq: Status: Active Protocol: Document 02/20/24 12:10 SLA (Rec: 02/20/24 12:10 SLA [email or web address]) Nutrition Malnutrition Evidence of Malnutrition Exists Yes Malnutrition (severe): Acute Illness/Injury Evidenced By Suboptimal Energy Intake ( Severe),Weight Loss (Severe) Clinical Problem Acute Disease or Injury Related Malnutrition Etiology related to recent dx of covid and now causing inadequate energy intake Signs/Symptoms as evidenced by 5% unintentional wt loss and po intake meeting <75% 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 Rec consider appetite stimulant if po intake fails to improve Lab / Micro Data 02/23/24 05:58 02/23/24 05:58 Labs: Laboratory Results - last 24 hr 02/23/24 05:58: WBC 22.7 H, RBC 4.14 L, Hgb 12.7 L, Hct 37.9 L, MCV 91.5, MCH 30.7, MCHC 33.5, RDW Std Deviation 49.3 H, RDW Coeff of Dominick 14.6, Plt Count 389, MPV 11.4, Sodium 138, Potassium 3.9, Chloride 112 H, Carbon Dioxide 18.0 L, Anion Gap 8, BUN 67 H, Creatinine 1.64 H, Estim Creat Clear Calc 35.32, Est GFR (MDRD) Af Amer 51 L, Est GFR (MDRD) Non-Af 42 L, BUN/Creatinine Ratio 40.9 H, G lucose 141 H, Calcium 8.9 Micro: Microbiology 02/19/24 13:05 Sputum, Expectorated/Coughed Gram Stain - Final 02/19/24 13:05 Sputum, Expectorated/Coughed Respiratory Culture - Final Haemophilus influenzae 02/19/24 09:41 Blood Culture (Wb) - Anticubital Right Blood Culture - Preliminary No growth in 48 hours. 02/19/24 09:41 Blood Culture (Wb) - Left Wrist Blood Culture - Preliminary No growth in 48 hours. 02/19/24 13:15 Mucosa - Nasopharyngeal Respiratory Panel (PCR) - Final 02/19/24 10:27 Urine, Clean Catch Legionella Antigen - Final 02/19/24 10:27 Urine, Clean Catch Streptococcus pneumoniae Antigen (M - Final Physical Exam Const alert, oriented x3, no apparent distress and well nourished General Appearance: cooperative HEENT normocephalic, head/scalp atraumatic, moist oral mucous membranes and oropharynx normal Eyes PERRL and EOMs intact bilaterally Neck General: trachea midline Lymph Lymphatic: no lymphadenopathy noted Resp Resp Narrative: mildly diminished breath sounds bibasally, no wheezes or crackles. On 2L of oxygen by nasal canula. Cardio regular rate, regular rhythm, S1 normal heart sound, S2 normal heart sound and no murmurs GI normal to inspection, nondistended, normoactive bowel sounds, soft to palpation and non-tender Extremity normal capillary refill, no clubbing, cyanosis or edema and no calf tenderness General Extremity: no tenderness to palpation of joints or extremities Skin General Skin Exam: no breakdown Neuro CN's II-XII intact bilaterally, no focal motor deficits and no sensory deficits noted Motor Exam: strength 5/5 throughout and general weakness Psych thought process normal and cooperative Appearance: appropriate Assessment & Plan Assessment/Plan (1) Hypoxia: PLAN: Plan #Hypoxia due to COVID-19 infection with superimposed H influenza pneumonia * Was diagnosed with COVID on 02/11/2024. He subsequently came with shortness of breath and repeat chest x-ray on 02/19/2024 showed new right basilar consolidation concerning for pneumonia. COVID test he has been negative. * Sputum culture positive for H. influenzae. * Currently on IV antibiotics and breathing treatments as well as steroids. * Titrate oxygen to maintain saturation above 90%. #SHIMA * Creatinine trended up slightly to 1.64 today. Hydrate with IV fluids today and trend creatinine. #Debility and weakness: * Likely due to pneumonia. * PT OT on board. * Fall precautions #Left eye conjunctivitis: Resolving. On erythromycin #Hypertension: * Blood pressure was running low yesterday so his BP meds were held. * He is on metoprolol spironolactone and lisinopril at home. #History of CAD: On aspirin but not on statin. #History of paroxysmal A-fib: On Eliquis. Metoprolol held due to blood pressure running low #Rheumatoid arthritis: On hydroxychloroquine #Inflammatory bowel disease: On mesalamine #Anxiety depression: On bupropion #History of chronic pain: On tramadol twice daily DVT prophylaxis: Not indicated as patient is on Eliquis Disposition: Anticipate discharge over the next 24 to 48 hours. Charges/Coding Visit Charges Inpatient E&M: 15123 Subs Hosp L2
[2024-02-23] MEDS: 0.9% Normal Saline (1000mL) 1,000 ML 75 ML IV (14:20)
--- NOTE | 2024-02-23 16:07 | CASEMGMT ---
Social Work- SW met with pt and pt to discuss d/c plans. SW introduced self and role. Pt and pt decided after speaking with therapy and discussing all of the facets that influence pt rehab, that they are going to d/c home with [facility]. Pt reports that [facility] has already called her to discuss services. Pt reports that they have a list of private pay aides and the financial resources to hire aides as needed. Pt reports that they have a very large support system from [employer], small groups, and family. Pt and pt have been almost 50 years (2/2) and are looking forward to celebrating together. SW updated RNCM of decision. TCU admissions notified of decision. Plan: Home with [facility] MEREDITH Shields
[2024-02-24] VITALS (7 sets, daily range): BP systolic 113–149; BP diastolic 79–100; PULSE 78–108; RESP 16–19; TEMP 36.3–36.8; O2SAT 90–98; BMI 22.2
[2024-02-24] MEDS: 0.9% Normal Saline (1000mL) 1,000 ML 75 ML IV (03:52)
[2024-02-24 06:47] LABS: Absolute Lymphocyte Count 0.37 X10^3/uL (0.83-4.51); Absolute Neutrophil Count 12.9 X10^3/uL (2.0-7.7); Basophil# 0.06 X10^3/uL; Basophil% 0.4 % (0-1); Eosinophil# 0.01 X10^3/uL; Eosinophils% 0.1 % (0-5); Hemoglobin 13.5 g/dL (13.0-16.5); Lymphocyte # 0.37 X10^3/ul (0.83-4.51); Lymphocyte % 2.6 % (19-41); Mean Corp Hgb Conc 32.9 g/dL (32-36); Mean Corpuscular Hgb 30.5 pg (27.0-32.0); Mean Corpuscular Volume 92.6 fL (80-94); Mean Platelet Vol. 11.3 fl (6.2-12.0); Monocyte# 0.78 X10^3/uL; Monocyte% 5.4 % (0-10); NRBC Flagged by Analyzer 0 % (0-5); Neutrophil # 12.88 X10^3/uL (2.7-7.7); POSITIVE DIFFERENTIAL YES; Platelet Count 431 K/mm3 (150-450); RBC Distribution Width CV 14.8 % (11.6-14.6); RBC Distribution Width SD 50.9 fl (35.1-43.9); Red Blood Count 4.43 M/mm3 (4.6-6.2); White Blood Count 14.5 K/mm3 (4.4-11.0)
[2024-02-24 07:05] LABS: Anion Gap 7 (5-15); BUN 54 mg/dL (7-18); BUN/Creat Ratio 34.4 RATIO (10-20); Chloride 114 mmol/L (98-107); Creatinine, Serum 1.57 mg/dL (0.70-1.30); EST Glomerular Filtration Rate 45 mL/min (>60); Est Glom Filt Rate - Afr Amer 54 mL/min (>60); Glucose 89 mg/dL (74-106); Potassium 4.2 mmol/L (3.5-5.1); Sodium Level 140 mmol/L (136-145)
[2024-02-24] MEDS: Ipratropium/Albuterol Sulfate 3 ML AMPUL.NEB INHALATION ×2 (07:16→13:13)
[2024-02-24] MEDS: Mesalamine 1.2 GM Tablet 2.4 GM PO (09:29)
[2024-02-24] MEDS: APIXABAN 5 MG TABLET PO (09:29)
[2024-02-24] MEDS: Hydroxychloroquine 200 MG Tablet 400 MG PO (09:29)
[2024-02-24] MEDS: buPROPion (XL) 150 MG TABLET.XL PO (09:29)
[2024-02-24] MEDS: Erythromycin Base 1 OPTH.TUBE 1 APPLIC LEFT EYE (09:30)
[2024-02-24] MEDS: dexAMETHasone 4 MG/ML Vial 2 MG IV (09:30)
[2024-02-24] MEDS: Menthol/Lanolin/Calamine/Znox 113 GM Tube 1 APPLIC TOPICAL (09:30)
[2024-02-24] MEDS: Ceftriaxone 1 GM/50 ML BAG IV (09:35)
[2024-02-24] MEDS: Azithromycin 500 MG in 0.9% Normal Saline (250mL Bag) 250 ML 250 MG IV (09:43)
--- NOTE | 2024-02-24 12:21 | CASEMGMT ---
Addendum entered by Michelle El 02/24/24 12:51: IRMA CM into pt room, pt and aware that pt did not qualify for home oxygen and that the FWW will be delivered to the room. Pt and also aware that [facility] will be in touch with them to set up a time to come out to the home. Original Note: Per hospitalist, pt to dc this date. Notified [facility] via careport. Pt does not qualify for home oxygen. Referral sent to [facility] for FWW via careport.
--- NOTE | 2024-02-24 12:27 | NURSING ---
SPO2 ON ROOM AIR AT 97%. AMBULATED TO THE BATHROOM AND ON TOILET. SPO2 @94 % ON ROOM AIR.
--- NOTE | 2024-02-24 14:52 | DS.PCM_ITS ---
Providers Date of Admission: 02/19/24 Date of Discharge: 02/24/24 Primary Care Physician: Dr. Santino Long MD Reason For Visit: HYPOXIA, PNEUMONIA, ADULT FTT Diagnosis Discharge Diagnosis (1) Hypoxia: Status: Acute Code(s): R09.02 - Hypoxemia Plan #Hypoxia due to COVID-19 infection with superimposed H influenza pneumonia * Was diagnosed with COVID on 02/11/2024. He subsequently came with shortness of breath and repeat chest x-ray on 02/19/2024 showed new right basilar consolidation concerning for pneumonia. COVID test he has been negative. * Sputum culture positive for H. influenzae. * Currently on IV antibiotics and breathing treatments as well as steroids. * Titrate oxygen to maintain saturation above 90%. #SHIMA * Creatinine trended up slightly to 1.64 today. Hydrate with IV fluids today and trend creatinine. #Debility and weakness: * Likely due to pneumonia. * PT OT on board. * Fall precautions #Left eye conjunctivitis: Resolving. On erythromycin #Hypertension: * Blood pressure was running low yesterday so his BP meds were held. * He is on metoprolol spironolactone and lisinopril at home. #History of CAD: On aspirin but not on statin. #History of paroxysmal A-fib: On Eliquis. Metoprolol held due to blood pressure running low #Rheumatoid arthritis: On hydroxychloroquine #Inflammatory bowel disease: On mesalamine #Anxiety depression: On bupropion #History of chronic pain: On tramadol twice daily DVT prophylaxis: Not indicated as patient is on Eliquis Disposition: Anticipate discharge over the next 24 to 48 hours. Medications at Discharge Home Medications hydroxychloroquine 200 mg tablet 400 mg PO .COMPLEX RHEUMATOID ARTHRITIS 06/23/22 Handicap Placard #1 ea 09/17/22 lisinopril 40 mg tablet 20 mg PO DAILY BLOOD PRESSURE 10/07/22 furosemide 40 mg tablet 40 mg PO .PRN 11/22/22 metoprolol succinate 50 mg tablet,extended release 24 hr 50 mg PO DAILY #90 tabs 06/09/23 spironolactone 25 mg tablet 25 mg PO DAILY FLUID #30 tabs 08/01/23 dapagliflozin propanediol 10 mg tablet (Farxiga) 10 mg PO DAILY DIABETES #30 tabs 08/23/23 tramadol 50 mg tablet 50 mg PO BID PRN pain 11/22/23 apixaban 5 mg tablet (Eliquis) 5 mg PO BID #180 tabs 12/13/23 bupropion HCl 150 mg 24 hr tablet, extended release 150 mg PO DAILY 02/19/24 mesalamine 0.375 gram capsule,extended release 24 hr 1.5 g PO DAILY 02/19/24 amoxicillin 875 mg-potassium clavulanate 125 mg tablet 1 tab PO BID #10 tabs 02/24/24 Hospital Course Operations None Procedures None Summary of Care Provided Minutes Spent on Discharge: 47 Hospital Course: Patient is an 88-year-old male with a past medical history as outlined was admitted through the ED on 02/19/2024 with complaint of shortness of breath. He had been diagnosed with COVID about 10 days prior to admission and said he had been fine but progressively became weak with worsening shortness of breath and a cough productive of sputum as well as a left eye discharge. He also complained of weakness and debility and had gradually become weak and so his brought him to the ED. He was hypoxic at 85% on room air and required 3 L to get up to 90%. Chest x-ray showed a new right basilar consolidation. EKG showed no acute ST changes. He was admitted and managed for acute hypoxic respiratory failure due to post COVID-pneumonia. Sputum cultures grew H. influenzae. Was also given erythromycin eye ointment for his eye infection. His shortness of breath improved and he was weaned off of oxygen to room air. Hospital course was complicated by episodic tachycardia which was thought to be due to the albuterol that he had been receiving. Albuterol was therefore discontinued. Patient had a walking pulse ox and he did not require any oxygen at discharge. He was discharged home on p.o. Augmentin for 7-day course and is to follow-up with his primary care doctor within 1 to 2 weeks. Patient seen and examined prior to discharge. His was by his bedside. He had no active complaints. Review of systems otherwise negative. Labs and vitals reviewed. Home medication reviewed and reconciled. Physical Exam Const alert, oriented x3, no apparent distress, average body habitus and well nourished General Appearance: cooperative and comfortable Orientation / Consciousness: awake HEENT normocephalic, head/scalp atraumatic, hearing grossly normal bilaterally, nasal mucous membranes and turbinates normal, moist oral mucous membranes and oropharynx normal Mouth: oral and palatal mucosa normal Eyes PERRL, EOMs intact bilaterally and conjunctivae normal Neck full ROM General: trachea midline Lymph Lymphatic: no lymphadenopathy noted Chest inspection of chest normal Resp normal respiratory effort and no use of accessory muscles Resp Narrative: mildly diminished breath sounds bibasally, no wheezes or crackles. On 2L of oxygen by nasal canula. Cardio regular rate, regular rhythm, S1 normal heart sound, S2 normal heart sound, no murmurs and peripheral pulses 2+ throughout GI normal to inspection, nondistended, normoactive bowel sounds, soft to palpation, non-tender and non-distended Back/Spine normal ROM Extremity normal to inspection, full ROM, normal capillary refill, no clubbing, cyanosis or edema, no calf tenderness and no pedal edema General Extremity: no tenderness to palpation of joints or extremities Skin no rashes or lesions noted General Skin Exam: no breakdown Neuro CN's II-XII intact bilaterally, no focal motor deficits and no sensory deficits noted Motor Exam: strength 5/5 throughout and general weakness Psych mental status grossly normal, thought process normal and cooperative Psych Narrative: Flat affect. Appearance: appropriate Medical Records Data Medical Nutrition Assessment Dietitian: Malnutrition Criteria Met Start: 02/20/24 12:10 Freq: Status: Active Protocol: Document 02/20/24 12:10 [facility] (Rec: 02/20/24 12:10 [facility] [id number]) Nutrition Malnutrition Evidence of Malnutrition Exists Yes Malnutrition (severe): Acute Illness/Injury Evidenced By Suboptimal Energy Intake ( Severe),Weight Loss (Severe) Clinical Problem Acute Disease or Injury Related Malnutrition Etiology related to recent dx of covid and now causing inadequate energy intake Signs/Symptoms as evidenced by 5% unintentional wt loss and po intake meeting <75% of 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 Rec consider appetite stimulant if po intake fails to improve Weight / BMI Weight Weight: 173 lb 8.061 oz Body Mass Index (BMI) 22.2 ABG / Lab / Microbiology Data 02/24/24 06:22 02/24/24 06:22 Laboratory: Laboratory Results - last 24 hr 02/24/24 06:22: WBC 14.5 H, RBC 4.43 L, Hgb 13.5, Hct 41.0, MCV 92.6, MCH 30.5, MCHC 32.9, RDW Std Deviation 50.9 H, RDW Coeff of Dominick 14.8 H, Plt Count 431, MPV 11.3, Immature Gran % (Auto) 2.500 H, Neut % (Auto) 89.0 H, Lymph % (Auto) 2.6 L , [place] % (Auto) 5.4, Eos % (Auto) 0.1, Baso % (Auto) 0.4, Absolute Neuts (auto) 12.9 H, Absolute Lymphs (auto) 0.37 L, Nucleated RBC % 0, Sodium 140, Potassium 4.2, Chloride 114 H, Carbon Dioxide 18.0 L, Anion Gap 7, BUN 54 H, Creatinine 1.57 H, Estim Creat Clear Calc 36.90, Est GFR (MDRD) Af Amer 54 L, Est GFR (MDRD) Non-Af 45 L, BUN/Creatinine Ratio 34.4 H, Glucose 89, Calcium 9.0 Microbiology: Microbiology 02/19/24 09:41 Blood Culture (Wb) - Anticubital Right Blood Culture - Final No growth in 5 days. 02/19/24 09:41 Blood Culture (Wb) - Left Wrist Blood Culture - Final No growth in 5 days. 02/19/24 13:05 Sputum, Expectorated/Coughed Gram Stain - Final 02/19/24 13:05 Sputum, Expectorated/Coughed Respiratory Culture - Final Haemophilus influenzae 02/19/24 13:15 Mucosa - Nasopharyngeal Respiratory Panel (PCR) - Final 02/19/24 10:27 Urine, Clean Catch Legionella Antigen - Final 02/19/24 10:27 Urine, Clean Catch Streptococcus pneumoniae Antigen (M - Final D/C Instructions Discharge Diet: Low fat / Low cholesterol Discharge Activity: Return to Normal Activity DC O2, CPAP, BIPAP Needs RN Home O2 Qualification: Home O2 Qualification: Is the patient on home oxygen No 02/24/24 05:48 Home O2 Qualification: AT REST 1- Pulse Ox at rest 90 02/24/24 05:48 2- Pulse Ox at rest 90 02/21/24 09:49 2- Oxygen Flow Rate at rest 2 02/21/24 09:49 Home O2 Qualification: WITH AMBULATION 1- Pulse Ox with ambulation 91 02/24/24 05:48 1- Oxygen Flow Rate with 1 02/24/24 05:48 ambulation 2- Pulse Ox with ambulation 0 02/21/24 09:49 2- Oxygen Flow Rate with 0 02/21/24 09:49 ambulation 3- Pulse Ox with ambulation 0 02/21/24 09:49 3- Oxygen Flow Rate with 0 02/21/24 09:49 ambulation 3- Stopped test - Unable to Yes 02/21/24 09:49 obtain pulse ox >89% w/ max oxyg 4- Pulse Ox with ambulation 0 02/21/24 09:49 4- Oxygen Flow Rate with 0 02/21/24 09:49 ambulation 4- Stopped test - Unable to Yes 02/21/24 09:49 obtain pulse ox >89% w/ max oxyg Home O2 Discharge instructions: No DC home with Oxygen: No Meaningful Use Info Meaningful Use Meaningful Use Diagnoses (Choose all that apply): None applicable Ischemic Stroke Statin Dosing Therapy Reference: STATIN DOSE THERAPY REFERENCE: * Patients > 75 years receive moderate or high dose statin therapy. * Patients 75 years or YOUNGER should receive HIGH intensity statin dose unless contraindicated. You will be required to document reason for non-treatment if statin daily dose does not meet guidelines. HIGH DOSE STATIN THERAPY DAILY Atorvastatin > than or = to 40 mg Rosuvastatin > than or = to 20 mg Amlodipine + Atorvastatin > than or = to 2.5/40 mg Ezetimibe + Simvastatin 10/80 mg Simvastatin 80mg Discharge Plan Admission Admit Date/Time: 02/19/24 10:54 Primary Reason for Your Visit: post covid pneumonia Attending Provider: Shani Root Primary Care Provider: Santino Long Consulting Providers: Alisa Mack; Luiz Cruz Instructions Patient Instructions: ED Pneumonia (Adult) Discharge Orders/Prescriptions Prescriptions: New amoxicillin-pot clavulanate 875-125 mg tablet 1 tab PO BID Qty: 10 0RF Continued (DME) Handicap Placard See Rx Instructions .Route .MEDSUPPLY Qty: 1 0RF Rx Instructions: Good from 09/17/22-09/18/2027 tramadol 50 mg tablet 50 mg PO BID PRN (Reason: pain) lisinopril 40 mg tablet 20 mg PO DAILY furosemide 40 mg tablet 40 mg PO .PRN metoprolol succinate 50 mg tablet extended release 24 hr 50 mg PO DAILY Qty: 90 3RF hydroxychloroquine 200 mg tablet 400 mg PO .COMPLEX Rx Instructions: 400 mg orally 2 tabs daily except on Tuesday; mesalamine 0.375 gram capsule,extended release 24hr 1.5 g PO DAILY bupropion HCl 150 mg tablet extended release 24 hr 150 mg PO DAILY spironolactone 25 mg tablet 25 mg PO DAILY Qty: 30 11RF Farxiga 10 mg tablet 10 mg PO DAILY Qty: 30 12RF Eliquis 5 mg tablet 5 mg PO BID Qty: 180 3RF Referrals / Follow Up: Santino Long MD [Primary Care Provider] - 02/28/24 11:00 am Disposition Disposition (needs filled in before D/C Order can be placed): Home, Self Care Charges/Coding Visit Charges Inpatient E&M: 08501 Disch Hosp >30min
== END 2024-02-24 15:54 | disposition home or self-care (01) | DRG 193 ==
LOC: ED 10:56 → MS3 11:02
PROVIDERS: Hospitalist; Admitting Provider Family Medicine; Emergency Provider Emergency Medicine; PCP Internal Medicine; Visit Provider Student in an Organized Health Care Education/Training Program
DX: J14 Pneumonia due to Hemophilus influenzae (principal); E43 Unspecified severe protein-calorie malnutrition; G93.41 Metabolic encephalopathy; I42.9 Cardiomyopathy, unspecified; I13.0 Hypertensive heart and chronic kidney disease with heart failure and stage 1 through stage 4 chronic kidney disease, or unspecified chronic kidney disease; I50.22 Chronic systolic (congestive) heart failure; N17.9 Acute kidney failure, unspecified; N13.8 Other obstructive and reflux uropathy; Z66 Do not resuscitate; I48.0 Paroxysmal atrial fibrillation; N18.30 Chronic kidney disease, stage 3 unspecified; M06.9 Rheumatoid arthritis, unspecified; I25.10 Atherosclerotic heart disease of native coronary artery without angina pectoris; E78.5 Hyperlipidemia, unspecified; H10.32 Unspecified acute conjunctivitis, left eye; F41.9 Anxiety disorder, unspecified; R54 Age-related physical debility; K52.9 Noninfective gastroenteritis and colitis, unspecified; Z86.16 Personal history of COVID-19; Z87.891 Personal history of nicotine dependence; N40.1 Benign prostatic hyperplasia with lower urinary tract symptoms; Z79.01 Long term (current) use of anticoagulants; G89.29 Other chronic pain; R09.02 Hypoxemia; Z79.2 Long term (current) use of antibiotics; Z86.73 Personal history of transient ischemic attack (TIA), and cerebral infarction without residual deficits; Z96.653 Presence of artificial knee joint, bilateral; Z68.22 Body mass index [BMI] 22.0-22.9, adult
CPT/HCPCS: 36415; 71045; 80048; 80053; 80076; 81001; 83605; 83735; 83880; 84484; 85025; 85027; 85610; 85730; 87040; 87070; 87077; 87205; 87449; 87633; 93005; 94640; 94668; 94762; 97110; 97116; 97162; 97166; 97530; 97535; 97803; 99285; A4216

== ENCOUNTER 2024-02-27 16:23 | Inpatient (IN) | payer MEDICARE, BC, SELFPAY ==
[2024-02-27] VITALS (12 sets, daily range): BP systolic 93–118; BP diastolic 62–89; PULSE 86–140; RESP 14–37; TEMP 35.9–36.6; O2SAT 86–97; BMI 20.7; BMI 21.2
--- NOTE | 2024-02-27 16:33 | EKG12_ITS ---
Test Reason : SOB Blood Pressure : */* mmHG Vent. Rate : 143 BPM Atrial Rate : * BPM P-R Int : * ms QRS Dur : 122 ms QT Int : 310 ms P-R-T Axes : * -14 120 degrees QTcB Int : 478 ms Critical Test Result: High HR Atrial fibrillation with rapid ventricular response Cannot rule out Septal infarct , age undetermined ST & T wave abnormality, consider lateral ischemia Abnormal ECG Confirmed by Gianluca Ball ([id number]), deputy editor in chief NARENDRA HYMAN ([id number]) on 02/28/2024 1:26:48 PM Referred By: LISSET/ROSEMARY Confirmed By: Gianluca Ball
[2024-02-27 17:04] LABS: Absolute Lymphocyte Count 0.72 X10^3/uL (0.83-4.51); Absolute Neutrophil Count 9.4 X10^3/uL (2.0-7.7); Basophil# 0.05 X10^3/uL; Basophil% 0.4 % (0-1); Eosinophil# 0.05 X10^3/uL; Eosinophils% 0.4 % (0-5); Hematocrit 46.5 % (40-54); Hemoglobin 14.6 g/dL (13.0-16.5); Lymphocyte # 0.72 X10^3/ul (0.83-4.51); Lymphocyte % 6.3 % (19-41); Mean Corp Hgb Conc 31.4 g/dL (32-36); Mean Corpuscular Hgb 29.4 pg (27.0-32.0); Mean Corpuscular Volume 93.6 fL (80-94); Mean Platelet Vol. 11.1 fl (6.2-12.0); Monocyte# 0.69 X10^3/uL; NRBC Flagged by Analyzer 0 % (0-5); Neutrophil # 9.44 X10^3/uL (2.7-7.7); Neutrophil % 82.9 % (47-70); Platelet Count 554 K/mm3 (150-450); RBC Distribution Width CV 14.8 % (11.6-14.6); RBC Distribution Width SD 50.5 fl (35.1-43.9); Red Blood Count 4.97 M/mm3 (4.6-6.2); White Blood Count 11.4 K/mm3 (4.4-11.0)
--- NOTE | 2024-02-27 17:20 | RAD_ITS ---
STUDY: X-RAY CHEST REASON FOR EXAM: Male, 88 years old. pneumonia TECHNIQUE: Single frontal view of the chest. COMPARISON: February 19, 2024 FINDINGS: Bilateral airspace disease improved. There is no demonstrated pleural abnormality. Normal size heart. Normal mediastinum and mk. Normal visualized pulmonary arteries. Normal visualized aortic arch and descending thoracic aorta. Normal visualized thoracic spine. Normal visualized ribs, clavicles, and shoulders. There is no demonstrated abnormality of the visualized soft tissue structures of the upper abdomen. RAD/Chest 1 View (Portable) IMPRESSION: Bilateral airspace disease improved. Electronically Signed: Rakesh Otoole MD at 17:42 EST ,
[2024-02-27 17:29] LABS: Anion Gap 9 (5-15); BUN 55 mg/dL (7-18); BUN/Creat Ratio 28.8 RATIO (10-20); Chloride 106 mmol/L (98-107); Creatinine, Serum 1.91 mg/dL (0.70-1.30); EST Glomerular Filtration Rate 36 mL/min (>60); Est Glom Filt Rate - Afr Amer 43 mL/min (>60); Estimated Creatinine Clearance 28.32 ml/min; Glucose 124 mg/dL (74-106); Potassium 4.5 mmol/L (3.5-5.1); Sodium Level 135 mmol/L (136-145); Troponin-I HS 116 pg/mL (3.0-78.0)
[2024-02-27 17:32] LABS: D-Dimer Quantitative (DVT/PE) 1.63 FEU/ug/m (0.27-0.49)
--- NOTE | 2024-02-27 17:33 | EX.ED.DYSGE1 ---
HPI History of Present Illness Chief Complaint: Shortness of Breath Informant: patient and spouse/S.O. Narrative Narrative: 88-year-old male discharged from the hospital 3 days ago, he was admitted for COVID complicated by pneumonia and developed influenza while in the hospital. Since has been home, he has been actually feeling better still has a mild nonproductive cough, some dyspnea with exertion, but his home health and physical therapy encounters discovered today that he was hypoxic at 86% on room air while resting, he is on no home oxygen and was not sent home on any. This is the main reason he was sent here. Denies feeling any palpitations, near-syncope or syncope, or major leg edema. 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 History of stroke CAD (coronary artery disease) Atrial fibrillation/flutter CKD (chronic kidney disease), stage III Cardiomyopathy Lung nodules BPH (benign prostatic hyperplasia) Rheumatoid arthritis Essential hypertension Hypertension HTN (hypertension) Colitis Home Medications ?Medication ?Instructions ?Recorded ?Last Taken ?Type hydroxychloroquine 200 mg tablet 400 mg PO .COMPLEX RHEUMATOID 06/23/22 12/14/22 History ARTHRITIS Handicap Placard #1 ea 09/17/22 Unknown Rx lisinopril 40 mg tablet 20 mg PO DAILY BLOOD PRESSURE 10/07/22 12/14/22 History furosemide 40 mg tablet 40 mg PO .PRN 11/22/22 Unknown History metoprolol succinate 50 mg 50 mg PO DAILY #90 tabs 06/09/23 Unknown Rx tablet,extended release 24 hr spironolactone 25 mg tablet 25 mg PO DAILY FLUID #30 tabs 08/01/23 Unknown Rx dapagliflozin propanediol 10 mg 10 mg PO DAILY DIABETES #30 tabs 08/23/23 Unknown Rx tablet (Farxiga) tramadol 50 mg tablet 50 mg PO BID PRN pain 11/22/23 Unknown History apixaban 5 mg tablet (Eliquis) 5 mg PO BID #180 tabs 12/13/23 Unknown Rx bupropion HCl 150 mg 24 hr tablet, 150 mg PO DAILY 02/19/24 Unknown History extended release mesalamine 0.375 gram 1.5 g PO DAILY 02/19/24 Unknown History capsule,extended release 24 hr amoxicillin 875 mg-potassium 1 tab PO BID #10 tabs 02/24/24 Unknown Rx clavulanate 125 mg tablet Allergy/AdvReac Type Severity Reaction Status Date / Time etanercept (From Enbrel) AdvReac Rash Verified 02/27/24 16:25 Family History Mother Diabetes CAD (coronary artery disease) Myocardial infarction, Onset Age: 82 Father CAD (coronary artery disease) Brother CAD (coronary artery disease) Hypertension Surgical History History of cardioversion History of bilateral cataract extraction History of foot surgery History of hernia repair History of arthroscopy of knee History of bilateral knee replacement Social History household members: spouse housing: house Smoking Status: Former smoker how long ago did patient quit smokin years ago alcohol intake: current alcohol intake frequency: 0-2 drinks per day Alcohol type: beer details: wine substance use type: does not use caffeine: Yes Type: coffee Number of servings: 2 ROS ROS ED Constitutional Constitutional ED: Denies chills or fever(s) Eyes Eyes: Denies change in vision or diplopia ENT ENT ED: Denies rhinorrhea or sore throat Cardiovascular Cardiovascular: Reports easily tiring during activity; Denies chest pain, leg edema or palpitations Respiratory/Chest Respiratory/Chest: Reports cough and dyspnea on exertion; Denies sputum Gastrointestinal Gastrointestinal: Denies abdominal pain, diarrhea, hematochezia, melena, nausea or vomiting Genitourinary Genitourinary ED: Denies dysuria or hematuria Musculoskeletal Musculoskeletal: Denies back pain or neck pain Integumentary Denies abscess or rash Neurologic Neurologic: Denies headache(s), paresthesias or weakness Psychiatric Psychiatric: Denies anxiety or suicidal thoughts EXAM Physical Exam Const Vital Signs: 02/27/24 16:25 02/27/24 16:37 02/27/24 17:04 Temperature 96.7 F L 98 F Temperature Source Temporal Temporal Pulse Rate 86 140 H 139 H Respiratory Rate 18 37 H Respiratory Effort Respiratory Depth Blood Pressure 105/62 99/70 Blood Pressure Mean 76 79 Pulse Ox 86 90 92 Oxygen Delivery Method Room Air Room Air Nasal Cannula Oxygen Flow Rate (L/min) 4 4 02/27/24 17:09 02/27/24 17:09 02/27/24 17:09 Temperature Temperature Source Pulse Rate Respiratory Rate Respiratory Effort Short of Breath Labored Respiratory Depth Deep Blood Pressure Blood Pressure Mean Pulse Ox 94 Oxygen Delivery Method Nasal Cannula Nasal Cannula Nasal Cannula Oxygen Flow Rate (L/min) 2 2 Positive well nourished and well developed General Appearance ED: well developed and NAD HEENT Reports moist mucous membranes normocephalic and atraumatic Eyes PERRL and EOMs intact bilaterally Neck full ROM, supple and no JVD Resp normal respiratory effort Resp Narrative: Crackles or rhonchi right base otherwise clear Effort and Inspection: able to speak in complete sentences Cardio Rate: Negative for tachycardic Rhythm: abnormal rhythm irregularly irregular GI non-tender and non-distended Auscultation: normoactive bowel sounds Palpation: soft Back/Spine no CVA tenderness General Back: other FROM Extremity normal to inspection General Extremety ED: Yes edema; Negative for pulses abnormal or tenderness General Extremity: edema bilateral lower extremity Details: trace; Negative for pulses abnormal Neuro oriented x3, CN's II-XII intact bilaterally and no sensory deficits noted Sensorium / Orientation: awake and alert Motor Exam: general weakness Psych mental status grossly normal Skin no rashes or lesions noted and no wounds MDM MDM MDM Narrative Medical decision making narrative: Electrically, the patient is in A-fib with RVR. However his pulse is in the 50-60 range, irregular. According to the spouse, he was cardioverted out of A-fib but they noted that he went back into it during his prior hospital visit, so this is not new today. He is anticoagulated on Eliquis, even after being cardioverted he has maintained taking that medication and is still on it. On my interpretation of his chest x-ray 1 view, he has resolution of the right lower lobe infiltrate, but development of infiltrate versus atelectasis in the left lower and right upper lobes. This may be explaining his hypoxemia. He is anticoagulated, nursing protocol orders placed a an order for a D-dimer which I would not have ordered, and it is elevated. This is nonspecific, and not indicative of an acute PE, I do not think the patient needs a CTA given his chronic kidney disease, as the risk outweighs the potential benefits since he has been anticoagulated and very unlikely to have developed a PE, especially since his dyspnea is improving and not worsening. The blood pressures here are soft, it looks like that was the case when he was in the hospital as well. His recent ejection fraction is 50% so I am giving him half liter of IV fluids for his pressure of 99/70, it looks like they were holding his metoprolol and intermittently his other blood pressure medications due to this in the hospital. His sputum culture was positive for H influenza. Still on Augmentin at home, he was discharged on a 7-day course of this. Apparently at discharge he was ambulated and had no hypoxemia with that, but now because of his hypoxemia we will need to keep him in the hospital. Since his pulse is in the 60s right now I am not going to emergently treat the electrical A-fib with RVR given his blood pressure. His troponin is little elevated this will be trended, but his EKG does not indicate a STEMI, this is probably related to his hypoxemia. SHIMA on top of chronic kidney disease as well compared with 3 days ago. Discussed with hospitalist, we both agree it would be reasonable to start IV Rocephin which was done. Will admit. History & Record Review Additional record(s) reviewed:: Prior inpatient record Lab Data Attestation: I reviewed the patient's lab results. Labs: Laboratory Results - last 24 hr 02/27/24 16:50 WBC 11.4 H RBC 4.97 Hgb 14.6 Hct 46.5 MCV 93.6 MCH 29.4 MCHC 31.4 L RDW Std Deviation 50.5 H RDW Coeff of Dominick 14.8 H Plt Count 554 H MPV 11.1 Immature Gran % (Auto) 4.000 H Neut % (Auto) 82.9 H Lymph % (Auto) 6.3 L [place] % (Auto) 6.0 Eos % (Auto) 0.4 Baso % (Auto) 0.4 Absolute Neuts (auto) 9.4 H Absolute Lymphs (auto) 0.72 L Nucleated RBC % 0 D-Dimer Quant (PE/DVT) 1.63 H* Sodium 135 L Potassium 4.5 Chloride 106 Carbon Dioxide 20.0 L Anion Gap 9 BUN 55 H Creatinine 1.91 H Estim Creat Clear Calc 28.32 Est GFR (MDRD) Af Amer 43 L Est GFR (MDRD) Non-Af 36 L BUN/Creatinine Ratio 28.8 H Glucose 124 H Calcium 9.0 Troponin I High Sens 116 H Rhythm Strip Rhythm Strip: A-fib Rate: 140 Ectopy: None EKG Initial EKG: Attestation: I personally reviewed and interpreted this EKG as follows: Interpretation: No Acute Injury Pattern, Atrial Fibrillation, LBBB and Non-Specific ST Changes Management Discussion w/another healthcare provider: Hospitalist Discharge Plan Triage Chief Complaint: Shortness of Breath ED Provider: Karlos Fallon Dx/Rx/DC Orders Clinical Impression: Hypoxemia, Atrial fibrillation with RVR, CKD (chronic kidney disease), Pneumonia due to Haemophilus influenzae, SHIMA (acute kidney injury), Failure of outpatient treatment, Elevated troponin Prescriptions: No Action (DME) Handicap Placard See Rx Instructions .Route .MEDSUPPLY Qty: 1 0RF Rx Instructions: Good from 09/17/22-09/18/2027 tramadol 50 mg tablet 50 mg PO BID PRN (Reason: pain) lisinopril 40 mg tablet 20 mg PO DAILY furosemide 40 mg tablet 40 mg PO .PRN metoprolol succinate 50 mg tablet extended release 24 hr 50 mg PO DAILY Qty: 90 3RF hydroxychloroquine 200 mg tablet 400 mg PO .COMPLEX Rx Instructions: 400 mg orally 2 tabs daily except on Tuesday; mesalamine 0.375 gram capsule,extended release 24hr 1.5 g PO DAILY bupropion HCl 150 mg tablet extended release 24 hr 150 mg PO DAILY amoxicillin-pot clavulanate 875-125 mg tablet 1 tab PO BID Qty: 10 0RF spironolactone 25 mg tablet 25 mg PO DAILY Qty: 30 11RF Farxiga 10 mg tablet 10 mg PO DAILY Qty: 30 12RF Eliquis 5 mg tablet 5 mg PO BID Qty: 180 3RF Primary Care Provider: Santino Long Referrals: Santino Long MD [Primary Care Provider] - Print Language: Mexican Disposition Disposition: Acute Care Hospital [facility]
[2024-02-27] MEDS: 0.9% Normal Saline (500mL Bag) 500 ML 999 ML IV (17:34)
--- NOTE | 2024-02-27 17:45 | HP.PCM.HOS_ITS ---
HPI - General General Date of Admission: 02/27/24 Date of Service: 02/27/24 Chief Complaint: Dyspnea, hypoxia per home health, increasingly weak/fatigued since discharge. 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 influenzae pneumonia treated inpatient with IV Rocephin and IV azithromycin discharged on oral Augmentin weaned off of oxygen with initial recommendation for transitional care unit however patient and family deferred and transition to home now representing to the [facility] ED in 02/27/2024 with progressively worsening increased fatigue, malaise, difficulty performing simple activities at home with onset of more dyspnea with exertion with first PT aggressive therapy on day of presentation with noted hypoxia at that time prompting referral to the ED to be cautious. Workup in the ED included T96.7, heart rate 86 however patient's in the ED did go into atrial fibrillation with RVR with rate into the 140s, BP 105/62 initially, respiratory rate 18, 86% on room air transition to initially 4 L noted to be 90% eventually improving with de-escalation down to 2 L noted to be 94 to 95%, most recent repeat vitals T98, heart rate 138, BP 118/89, respiratory rate 14, 95% on 2 L nasal cannula, CBC with WBC 11.4, human 14.6, platelet 554 with significantly increased immature granulocytes with left shift and lymphopenia, D-dimer 1.63 however patient has continued to take his oral anticoagulant therapy, BMP with sodium 135, come back side 20, BUN/Elena 55/1.91, GFR 36, glucose 124, troponin 116, chest x-ray with bilateral airspace disease mildly improved but from comparison of previous chest x-ray some increase in previous nonsevere appearing regions and resolution of others, EKG with atrial fibrillation with RVR electrically although pulse palpated lower. In the ED patient ministered IV Rocephin 1 g x 1. PFSH Medical History Former tobacco use 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 History of stroke CAD (coronary artery disease) Atrial fibrillation/flutter CKD (chronic kidney disease), stage III Cardiomyopathy Lung nodules BPH (benign prostatic hyperplasia) Rheumatoid arthritis Essential hypertension Hypertension HTN (hypertension) Colitis Home Medications ?Medication ?Instructions ?Recorded ?Last Taken ?Type hydroxychloroquine 200 mg tablet 400 mg PO DAILY RHEUMATOID 06/23/22 12/14/22 History ARTHRITIS Handicap Placard #1 ea 09/17/22 Unknown Rx furosemide 40 mg tablet 40 mg PO PRN PRN edema 11/22/22 02/27/24 History metoprolol succinate 50 mg 50 mg PO DAILY #90 tabs 06/09/23 Unknown Rx tablet,extended release 24 hr spironolactone 25 mg tablet 25 mg PO DAILY FLUID #30 tabs 08/01/23 Unknown Rx dapagliflozin propanediol 10 mg 10 mg PO DAILY DIABETES #30 tabs 08/23/23 Unknown Rx tablet (Farxiga) tramadol 50 mg tablet 50 mg PO BID PRN pain 11/22/23 Unknown History apixaban 5 mg tablet (Eliquis) 5 mg PO BID #180 tabs 12/13/23 Unknown Rx bupropion HCl 150 mg 24 hr tablet, 150 mg PO DAILY 02/19/24 Unknown History extended release mesalamine 0.375 gram 1.5 g PO DAILY 02/19/24 Unknown History capsule,extended release 24 hr amoxicillin 875 mg-potassium 1 tab PO BID #10 tabs 02/24/24 Unknown Rx clavulanate 125 mg tablet albuterol sulfate 90 mcg/actuation 2 puff inhalation Q4H PRN wheezing 02/27/24 Unknown History aerosol inhaler (Ventolin HFA) lisinopril 20 mg tablet 20 mg PO DAILY 02/27/24 Unknown History Allergy/AdvReac Type Severity Reaction Status Date / Time etanercept (From Enbrel) AdvReac Rash Verified 02/27/24 16:25 Family History Mother Diabetes CAD (coronary artery disease) Myocardial infarction, Onset Age: 82 Father CAD (coronary artery disease) Brother CAD (coronary artery disease) Hypertension Surgical History History of cardioversion History of bilateral cataract extraction History of foot surgery History of hernia repair History of arthroscopy of knee History of bilateral knee replacement Social History household members: spouse housing: house Smoking Status: Former smoker how long ago did patient quit smokin years ago alcohol intake: current alcohol intake frequency: 0-2 drinks per day Alcohol type: beer details: wine substance use type: does not use caffeine: Yes Type: coffee Number of servings: 2 ROS ROS Narrative Admission Review of Systems: CONSTITUTIONAL: No weight loss, fever, chills, + weakness or fatigue. HEENT: Eyes: No visual loss, blurred vision, double vision or yellow sclerae. Ears, Nose, Throat: No hearing loss, sneezing. Improved lessening cough, no congestion, no eye discharge. SKIN: No rash or itching, lesions, wounds. CARDIOVASCULAR: No chest pain, chest pressure or chest discomfort, palpitations, edema, orthopnea, syncopal events. RESPIRATORY: + Dyspnea with improving cough. No marked wheezing, hemoptysis. GASTROINTESTINAL: + Poor appetite, anorexia but lessened than prior. Chronic intermittent diarrhea which is baseline with underlying colitis history. No nausea, vomiting, abdominal pain, melena, BRBPR. GENITOURINARY: No dysuria, frequency, urgency or retention. NEUROLOGICAL: + Global worsening weakness. No headache, dizziness, syncope, paralysis, ataxia, numbness or tingling in the extremities, focal weakness, change in bowel or bladder control, seizure. MUSCULOSKELETAL: + muscle, back pain, joint pain or stiffness. HEMATOLOGIC: No anemia. + Easy bleeding/bruising. LYMPHATICS: No enlarged nodes. No history of splenectomy. PSYCHIATRIC: + History of anxiety and depression. ENDOCRINOLOGIC: No reports of sweating, cold or heat intolerance. No polyuria or polydipsia. ALLERGIES: No history of asthma, hives, eczema or rhinitis. Vital Signs Vital Signs Vital Signs: 02/27/24 16:25 02/27/24 16:37 02/27/24 17:04 Temperature 96.7 F L 98 F Temperature Source Temporal Temporal Pulse Rate 86 140 H 139 H Respiratory Rate 18 37 H Respiratory Effort Respiratory Depth Blood Pressure 105/62 99/70 Blood Pressure Mean 76 79 Pulse Ox 86 90 92 Oxygen Delivery Method Room Air Room Air Nasal Cannula Oxygen Flow Rate (L/min) 4 4 02/27/24 17:09 02/27/24 17:09 02/27/24 17:09 Temperature Temperature Source Pulse Rate Respiratory Rate Respiratory Effort Short of Breath Labored Respiratory Depth Deep Blood Pressure Blood Pressure Mean Pulse Ox 94 Oxygen Delivery Method Nasal Cannula Nasal Cannula Nasal Cannula Oxygen Flow Rate (L/min) 2 2 Weight Weight: 162 lb Body Mass Index (BMI) 20.7 Physical Exam Narrative Physical Examination: General: Awake, alert, oriented x 3, cooperative, seated upright in the bed, fatigued appearing. Skin: Normal color, normal turgor, no icterus, no cyanosis except very staged ecchymoses, abrasions. HEENT: AT/NC, EOMI, PERRLA, mildly dry MM, no carotid bruits or JVD noted. Lungs: Diminished, greater bases, appropriate effort, mildly increased RR but no distress, no rales, ronchi or wheezing. Heart: Irregular irregular; no gallop, rub audible. Abdomen: Soft, NTTP, ND, normal BS, no appreciated HSM. Extremities: No cyanosis, no clubbing, pedal to lane trace edema. Neurological: Patient awake, alert, oriented as noted, cognitive function improved as noted, nearing baseline intact; pupils equally reactive to light and accommodation, cranial nerves gross normal, moving all 4 extremities, no focal deficits, strength severely globally decreased. Psychiatric: Affect appears fatigued, no acute evidence of depressive or anxiety feelings but does have underlying history. Results Lab / Micro Data 02/27/24 16:50 02/27/24 16:50 Labs: Laboratory Results - last 24 hr 02/27/24 16:50: WBC 11.4 H, RBC 4.97, Hgb 14.6, Hct 46.5, MCV 93.6, MCH 29.4, M CHC 31.4 L, RDW Std Deviation 50.5 H, RDW Coeff of Dominick 14.8 H, Plt Count 554 H, MPV 11.1, Immature Gran % (Auto) 4.000 H, Neut % (Auto) 82.9 H, Lymph % (Auto) 6.3 L, Lamar % (Auto) 6.0, Eos % (Auto) 0.4, Baso % (Auto) 0.4, Absolute Neuts (auto) 9.4 H, Absolute Lymphs (auto) 0.72 L, Nucleated RBC % 0, D-Dimer Quant (PE/DVT) 1.63 H*, Sodium 135 L, Potassium 4.5, Chloride 106, Carbon Dioxide 20.0 L, Anion Gap 9, BUN 55 H, Creatinine 1.91 H, Estim Creat Clear Calc 28.32, Est GFR (MDRD) Af Amer 43 L, Est GFR (MDRD) Non-Af 36 L, BUN/Creatinine Ratio 28.8 H , Glucose 124 H, Calcium 9.0, Troponin I High Sens 116 H Imaging Radiology Impression Chest X-Ray 02/27/24 17:20 IMPRESSION: Bilateral airspace disease improved. 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 influenzae pneumonia treated inpatient with IV Rocephin and IV azithromycin discharged on oral Augmentin weaned off of oxygen with initial recommendation for transitional care unit however patient and family deferred and transition to home now representing to the [facility] ED in 02/27/2024 with progressively worsening increased fatigue, malaise, difficulty performing simple activities at home with onset of more dyspnea with exertion with first PT aggressive therapy on day of presentation with noted hypoxia at that time prompting referral to the ED to be cautious. #1. Acute hypoxia, recurrent, worsening, complicated by recent COVID-19 viral syndrome and recent superimposed H influenza pneumonia w/ Adult FTT, questionable failure outpatient abx therapy versus primarily inability to tolerate discharge to home secondary to weakness and hypoxia: Will admit to PCU given indeterminate enzyme although suspected secondary to demand ischemia, maintain on ATC budesonide therapy, PRN albuterol, although low suspicion that he failed antibiotic therapy still some concern given worsening status thus will transition and maintain on regimen for severe pneumonia with IV Unasyn and IV azithromycin while awaiting repeat cultures including sputum culture with induction, respiratory viral panel and urine antigens with de-escalation as able, MRSA screen also requested. Discussed with patient and family and at this time strongly recommended that they consider transitional care/SNF placement once appropriate for discharge and they were amenable. PT/OT/case management consulted for discharge planning #2. indeterminate cardiac enzyme secondary to #1, likely demand ischemia: EKG in ED atrial fibrillation with RVR with no acute evidence of ischemia, CXR w/ as noted mild improvement in some regions and more pronounced and others following recent COVID-pneumonia with superimposed bacterial pneumonia as noted above, initial trop 116. 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 Magnesium level requested. Continued on chronic oral anticoagulant therapy. If enzymes rise significantly may need to consider holding transition to heparin drip with echocardiogram and cardiology involvement. #3. SHIMA on Chronic Kidney Disease Stage III based on GFR trending, unclear subtype, worsening: Admission BUN/creatinine 55/1.91, GFR 36, worsening since recent presentation, previous baseline noted 1.2-1.4 with recent discharge BUN/creatinine 54/1.57, continues to rise, will hold nephrotoxic medication, change Eliquis to renal dosing, obtain urinalysis, renal ultrasound, FeNa to be cautious, judiciously hydrate and repeat CMP in AM. #4. Paroxsymal atrial fibrillation w/ RVR: EKG in ED w/ atrial fibrillation w/ RVR. Likely secondary to acute presentation. Patient has been previously in sinus rhythm and has not been in atrial fibrillation for some time. He has required previous cardioversion. Will administer patient oral beta-alvino now and Cardizem 10 mg IV x 1. Will continue patient on telemetry monitoring, continue serial cardiac enzymes, will obtain magnesium level. Will continue on patient's oral anticoagulant with renal dosing #5. CAD: 08/26/2022 cardiac catheterization with severe single-vessel posterior descending artery lesion out of proportion to the extent of cardiomyopathy with medical therapy decision at that time. Will continue patient home apixaban with renal dosing change, metoprolol, holding lisinopril given SHIMA as noted, not on statin therapy #6. Hypertension: Continue home regimen including metoprolol, holding lisinopril and spironolactone given SHIMA, worsening. PRN hydralazine. #7. Hyperlipidemia: Per current list does not appear to be on statin therapy, encourage continued outpatient follow-up. #8. History CVA: We will continue patient home Eliquis with renal dosing adjustment, hypertensive regimen with alterations as noted, not on statin therapy per current list, encourage continued follow-up outpatient as previously arranged. #9. 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 #10. Rheumatoid arthritis: Clarifying home regimen, given infectious presentation low threshold to hold agents but per patient and family preference will continue hydroxychloroquine at this time. #11. IBD: Will continue home mesalamine regimen, encourage continued outpatient evaluation/follow-up with GI as previously arranged. #12. Anxiety and depression: We will continue patient home bupropion. #13. BPH with obstructive pathology: Not on any current regimen per medication list review, may add if necessary. #14. Former tobacco use: Encourage continued tobacco cessation. #15. DVT prophylaxis: Will continue patient home Eliquis regimen with renal dosing adjustment. #16. CODE status: Patient WALLY is his who is present and living will is currently in place. DNR-CCA with allowance of intubation short-term. Charges/Coding Visit Charges Inpatient E&M: 58089 Init Hosp L3
--- NOTE | 2024-02-27 18:00 | US_ITS ---
STUDY: RENAL ULTRASOUND - COMPLETE REASON FOR EXAM: Male, 88 years old. SHIMA on CKD, worsening. TECHNIQUE: Ultrasound evaluation of the kidneys was performed with real-time and static mota-scale imaging. COMPARISON: None. FINDINGS: RIGHT KIDNEY: Normal location of the right kidney, which is normal in size. The right kidney measures 9.6 cm. There is a normal cortex of the right kidney. The renal cortex measures 1.4 cm. simple renal cysts measuring up to 1.3 x 1 x 1.1 cm. There are no right renal calculi. There is no right hydronephrosis. Small amount of perinephric fluid. LEFT KIDNEY: Normal location of the left kidney, which is normal in size. The left kidney measures 10.9 cm. There is a normal cortex of the left kidney. The renal cortex measures 1.1 cm. Simple cysts measuring up to 1.1 x 0.9 x 0.8 cm. There are no left renal calculi. There is no left hydronephrosis. BLADDER: The distended urinary bladder has a volume of 216 ml.. There is a normal wall thickness of the distended urinary bladder. There is no demonstrated mass within the urinary bladder. There are no demonstrated bladder calculi. US/Kidney and Bladder IMPRESSION: Small amount of perinephric fluid on the right. Simple bilateral renal cysts. Electronically Signed: Rakesh Otoole MD at 22:17 EST ,
[2024-02-27] MEDS: Ceftriaxone 1 GM/50 ML BAG IV (18:22)
[2024-02-27 20:15] LABS: Magnesium 2.6 mg/dL (1.6-2.6)
[2024-02-27 20:18] LABS: Troponin-I HS 108 pg/mL (3.0-78.0)
[2024-02-27] MEDS: 0.9% Normal Saline (1000mL) 1,000 ML 100 ML IV (20:19)
[2024-02-27 20:28] LABS: Procalcitonin 0.21 ng/mL (0.00-0.09)
[2024-02-27] MEDS: Ampicillin/Sulbactam 3 GM in 0.9% Normal Saline (100mL MB+) 100 ML IV (20:45)
[2024-02-27] MEDS: Metoprolol(XL)Succ 50 MG Tablet PO (21:01)
[2024-02-27] MEDS: Azithromycin 500 MG in 0.9% Normal Saline (250mL Bag) 250 ML 255 MG IV (21:16)
[2024-02-27] MEDS: APIXABAN 2.5 MG TABLET (WCH) PO (21:54)
[2024-02-27 23:27] LABS: Troponin-I HS 98 pg/mL (3.0-78.0)
[2024-02-28] VITALS (45 sets, daily range): BP systolic 86–130; BP diastolic 64–110; PULSE 78–130; RESP 19–36; TEMP 36.3–36.7; O2SAT 89–97; BMI 21.3
[2024-02-28] MEDS: dilTIAZem 25 MG/5 ML Vial 10 MG IV BOLUS (00:17)
[2024-02-28 01:22] LABS: Red Blood Cells-Urine 0 SEEN /hpf (0-5)
[2024-02-28 01:40] LABS: Color, Urine Yellow (Yellow); Glucose, Dipstick 100 mg/dl (Normal); Ketone-Dipstick Negative (Negative); Leukocyte Esterase-Dipstick 25 /ul (Negative); Nitrite-Dipstick Negative (Negative); Occult Blood-Urine Negative /ul (Negative); Protein-Dipstick 15 mg/dl (Negative); Specific Gravity, Urine 1.025 (1.002-1.030); Urine Clarity Clear (Clear); Urine Urobilinogen Normal (Normal)
[2024-02-28 01:52] LABS: Bacteria 1+ /hpf (None Seen); Fine Granular Cast- Urine 0-5 SEEN /lpf (0-5); Hyaline Cast 5-10 SEEN /lpf (0-5); Mucous, Urine RARE /hpf (<or=2+); Squamous Epithelial Cells - UA 0-5 SEEN /hpf (0-5); Urine Bilirubin Dipstick 1 mg/dL (Negative); White Blood Cells 10-25 SEEN /hpf (0-5)
[2024-02-28 01:58] LABS: Urine Sodium 70 mmol/L (Not Establ.)
[2024-02-28] MEDS: Diltiazem 125 MG in Dextrose 5%-Water (100mL Bag) 100 ML IV (04:55)
[2024-02-28] MEDS: 0.9% Saline Lock 10 ML Syringe IV ×4 (04:55→17:53)
[2024-02-28 06:10] LABS: Absolute Neutrophil Count 8.6 X10^3/uL (2.0-7.7); Basophil# 0.03 X10^3/uL; Basophil% 0.3 % (0-1); Eosinophil# 0.06 X10^3/uL; Eosinophils% 0.6 % (0-5); Hematocrit 42.6 % (40-54); Lymphocyte % 4.9 % (19-41); Mean Corp Hgb Conc 32.9 g/dL (32-36); Mean Corpuscular Hgb 30.6 pg (27.0-32.0); Mean Corpuscular Volume 93.2 fL (80-94); Mean Platelet Vol. 11.1 fl (6.2-12.0); Monocyte# 0.66 X10^3/uL; Monocyte% 6.4 % (0-10); NRBC Flagged by Analyzer 0 % (0-5); Neutrophil # 8.63 X10^3/uL (2.7-7.7); Neutrophil % 83.7 % (47-70); POSITIVE DIFFERENTIAL YES; Platelet Count 491 K/mm3 (150-450); RBC Distribution Width CV 14.9 % (11.6-14.6); RBC Distribution Width SD 51.4 fl (35.1-43.9); Red Blood Count 4.57 M/mm3 (4.6-6.2); White Blood Count 10.3 K/mm3 (4.4-11.0)
[2024-02-28 06:32] LABS: ALB/GLOB Ratio 0.5 RATIO (0.9-2.4); AST(SGOT) 34 U/L (15-37); Alanine Aminotransfer ALT/SGPT 49 U/L (16-61); Alkaline Phosphatase 94 U/L (45-117); Anion Gap 5 (5-15); BUN 48 mg/dL (7-18); BUN/Creat Ratio 32.9 RATIO (10-20); Calcium,Total 8.6 mg/dL (8.5-10.1); Chloride 110 mmol/L (98-107); Creatinine, Serum 1.46 mg/dL (0.70-1.30); EST Glomerular Filtration Rate 49 mL/min (>60); Est Glom Filt Rate - Afr Amer 59 mL/min (>60); Estimated Creatinine Clearance 38.07 ml/min; Globulin 3.8 g/dL (2.2-4.2); Glucose 97 mg/dL (74-106); Potassium 4.4 mmol/L (3.5-5.1); Protein, Total 5.8 g/dL (6.4-8.2); Sodium Level 138 mmol/L (136-145)
[2024-02-28] MEDS: Budesonide Respules 0.5 MG/2 ML AMPUL.NEB. INHALATION ×2 (07:50→19:40)
[2024-02-28] MEDS: Metoprolol(XL)Succ 50 MG Tablet PO (08:44)
[2024-02-28] MEDS: APIXABAN 2.5 MG TABLET (WCH) PO ×2 (08:44→21:16)
[2024-02-28] MEDS: Hydroxychloroquine 200 MG Tablet 400 MG PO (08:44)
[2024-02-28] MEDS: buPROPion (XL) 150 MG TABLET.XL PO (08:44)
[2024-02-28] MEDS: Mesalamine 1.2 GM Tablet 2.4 GM PO (08:44)
[2024-02-28] MEDS: Ampicillin/Sulbactam 3 GM in 0.9% Normal Saline (100mL MB+) 100 ML IV ×4 (08:50→23:42)
[2024-02-28] MEDS: Ensure Plus High Protein 120 ML LIQUID PO ×2 (08:53→13:54)
[2024-02-28] MEDS: Azithromycin 500 MG in 0.9% Normal Saline (250mL Bag) 250 ML 255 MG IV (10:06)
--- NOTE | 2024-02-28 11:43 | CASEMGMT ---
Addendum entered by Aliza Escalera 02/28/24 16:06: Patient's declined a list of SNF's as they wanted [facility]. Kathryn did let SW know that TCU can take patient. RICHARD notified patient and his . Plan: d/c to [facility] Aliza CRUZ Original Note: RICHARD was informed patient's would like to talk with RICHARD regarding a bed in TCU. RICHARD met with patient's Luigi. RICHARD introduced self and role at [facility]. Luigi confirmed she would like patient to go to TCU if possible. RICHARD let Luigi know SW will make a referral and let her know as soon as RICHARD hears back. RICHARD made a referral to Kathryn in TCU. Aliza CRUZ
[2024-02-28] MEDS: Diltiazem 125 MG in Dextrose 5%-Water (100mL Bag) 100 ML 10 MG IV (13:54)
--- NOTE | 2024-02-28 14:47 | CHAPLAIN ---
Type of Pastoral Visit _x__ Initial Visit ___ Follow-up Visit ___ On-call Visit ___ General Patient Visit ___ Spiritual Assessment ___ Family Conference ___ Bereavement ___ Rapid Response ___ Code Blue ___ Other (describe below) Pastoral Care Referral From _x__ Patient _x_ Family ___ Nurse ___ Physician ___ Client Care Specialist ___ Administrative Aide ___ Other (describe below) Sacrament/Intervention _x__ Active listening ___ Anointing ___ Judaism ___ Bereavement ___ Communion ___ Tresa exploration ___ _x__ Life review _x__ Prayer ___ Reconciliation ___ Sacrament of Sick _x__ Supportive presence ___ Wedding ___ Other (describe below) Pastoral Comments patient has been seen recently in prior admission; spouse is particularly welcoming and seeking of spiritual care support; pt is less oriented and refers to his room as being in his own home; both are welcoming of presence to talk and prayer for intervention; spouse expresses appreciation for the attention and care given
--- NOTE | 2024-02-28 14:57 | CASEMGMT ---
IRMA PURDY chart review: Patient tested positive for COVID 19 virus at urgent care on 02/10/24. Pt was admitted to hospital on 02/19/24 for Hypoxia Pneumonia and adult FTT, Pt was DC on 02/24/24. Pt refused SNF, Pt preference was home with [facility] services. [facility] recommended Pt come back to hospital out of caution due to patient becoming weaker at home and increased hypoxia. Pt readmitted on 02/27/24. SW informed IRMA PURDY she already spoke with Pt and family and they chose TCU as first choice for SNF.
--- NOTE | 2024-02-28 15:31 | PCM.PROGNOTE ---
Subjective Subjective Patient seen and examined. His was by his bedside. He said he was feeling a bit better. He is on 3 L of oxygen. He denies any fever or chills, and admits to coughing. Cough is nonproductive. He denies any chest pain, palpitations, dizziness, nausea vomiting or any other symptoms. Review of systems otherwise negative. Objective Data Objective Data Vital Signs: Vital Signs Temp Pulse Resp BP Pulse Ox O2 Del Method O2 Flow Rate 98.1 F 87 32 H 110/89 H 94 Nasal Cannula 3 02/28/24 12:00 02/28/24 15:00 02/28/24 15:00 02/28/24 15:00 02/28/24 15:00 02/28/24 15:00 02/28/24 15:00 Oxygen Flow Rate (L/min) 3 Oxygen Delivery Method Nasal Cannula Weight: 166 lb 7.184 oz Body Mass Index (BMI) 21.3 Intake & Output: Intake and Output for Last 24 Hours 02/26/24 02/27/24 02/28/24 23:59 23:59 23:59 Intake Total 917 / 917 1838.25 / 1838.25 Output Total 750 / 750 Balance 917 / 717 1088.25 / 1088.25 Lab / Micro Data 02/28/24 05:34 02/28/24 05:34 Labs: Laboratory Results - last 24 hr 02/27/24 16:50: WBC 11.4 H, RBC 4.97, Hgb 14.6, Hct 46.5, MCV 93.6, MCH 29.4, MCHC 31.4 L, RDW Std Deviation 50.5 H, RDW Coeff of Dominick 14.8 H, Plt Count 554 H, MPV 11.1, Immature Gran % (Auto) 4.000 H, Neut % (Auto) 82.9 H, Lymph % (Auto) 6.3 L, [place] % (Auto) 6.0, Eos % (Auto) 0.4, Baso % (Auto) 0.4, Absolute Neuts (auto) 9.4 H, Absolute Lymphs (auto) 0.72 L, Nucleated RBC % 0, D-Dimer Quant (PE/DVT) 1.63 H*, Sodium 135 L, Potassium 4.5, Chloride 106, Carbon Dioxide 20.0 L, Anion Gap 9, BUN 55 H, Creatinine 1.91 H, Estim Creat Clear Calc 28.32, Est GFR (MDRD) Af Amer 43 L, Est GFR (MDRD) Non-Af 36 L, BUN/Creatinine Ratio 28.8 H, Glucose 124 H, Calcium 9.0, Troponin I High Sens 116 H 02/27/24 19:29: Magnesium 2.6, Troponin I High Sens 108 H, Procalcitonin 0.21 H 02/27/24 22:59: Troponin I High Sens 98 H 02/28/24 01:10: Urine Color Yellow, Urine Clarity Clear, Urine pH 6.0, Ur Specific [place] 1.025, Urine Protein 15 H, Urine Glucose (UA) 100 H, Urine Ketones Negative, Urine Occult Blood Negative, Urine Nitrite Negative, Urine Bilirubin 1 H, Urine Urobilinogen Normal, Ur Leukocyte Esterase 25 H, Urine RBC 0 SEEN, Urine WBC 10-25 SEEN, Ur Squamous Epith Cells 0-5 SEEN, Urine Bacteria 1+, Hyaline Casts 5-10 SEEN, Fine Granular Casts 0-5 SEEN, Urine Mucus RARE, Ur Random Sodium 70, Urine Creatinine 99.60 02/28/24 05:34: WBC 10.3, RBC 4.57 L, Hgb 14.0, Hct 42.6, MCV 93.2, MCH 30.6, MCHC 32.9, RDW Std Deviation 51.4 H, RDW Coeff of Dominick 14.9 H, Plt Count 491 H, MPV 11.1, Immature Gran % (Auto) 4.100 H, Neut % (Auto) 83.7 H, Lymph % (Auto) 4.9 L, [place] % (Auto) 6.4, Eos % (Auto) 0.6, Baso % (Auto) 0.3, Absolute Neuts (auto) 8.6 H, Absolute Lymphs (auto) 0.50 L, Nucleated RBC % 0, Sodium 138, Potassium 4.4, Chloride 110 H, Carbon Dioxide 23.0, Anion Gap 5, BUN 48 H, Creatinine 1.46 H, Estim Creat Clear Calc 38.07, Est GFR (MDRD) Af Amer 59 L, Est GFR (MDRD) Non-Af 49 L, BUN/Creatinine Ratio 32.9 H, Glucose 97, Calcium 8.6, Total Bilirubin 0.40, AST 34, ALT 49, Alkaline Phosphatase 94, Total Protein 5.8 L, Albumin 2.0 L, Globulin 3.8, Albumin/Globulin Ratio 0.5 L Micro: Microbiology 02/28/24 01:10 Urine, Clean Catch Legionella Antigen - Final 02/28/24 01:10 Urine, Clean Catch Streptococcus pneumoniae Antigen (M - Final 02/27/24 01:10 Nasal Secretion MRSA (PCR) - Final 02/27/24 23:10 Mucosa - Nasopharyngeal Respiratory Panel (PCR) - Final Radiography Diagnostic Testing: Radiology Impression Chest X-Ray 02/27/24 17:20 IMPRESSION: Bilateral airspace disease improved. Electronically Signed: Rakesh Otoole MD at 17:42 EST Reading [facility] Tel , Service support , Renal Ultrasound 02/27/24 18:00 IMPRESSION: Small amount of perinephric fluid on the right. Simple bilateral renal cysts. Electronically Signed: Rakesh Otoole MD at 22:17 EST Reading Location ID and State: [facility] / [place] Tel , Service support , Rhythm Strip Rhythm Strip: A-fib Rate: 140 Ectopy: None Physical Exam Const alert, oriented x3 and no apparent distress Constitutional Narrative: frail, weak General Appearance: cooperative HEENT normocephalic, head/scalp atraumatic, moist oral mucous membranes and oropharynx normal Eyes PERRL and EOMs intact bilaterally Neck no lymphadenopathy, supple and no JVD Lymph Lymphatic: no lymphadenopathy noted and no lymphedema noted Resp Resp Narrative: Mildly diminished breath sounds bibasilarly. Has coarse crackles in left mid and lower lung carney. On 3 L of oxygen. Cardio regular rate, regular rhythm, S1 normal heart sound, S2 normal heart sound and no murmurs GI normal to inspection, nondistended, normoactive bowel sounds, soft to palpation, non-tender and non-distended Extremity General Extremity: no tenderness to palpation of joints or extremities Skin General Skin Exam: no breakdown Neuro CN's II-XII intact bilaterally, no focal motor deficits and no sensory deficits noted Motor Exam: strength 5/5 throughout and general weakness Psych thought process normal and cooperative Appearance: appropriate Assessment & Plan Assessment/Plan (1) SHIMA (acute kidney injury): (2) Pneumonia due to Haemophilus influenzae: (3) Atrial fibrillation with RVR: PLAN: Plan #Hypoxia due to possible failed outpatient therapy for H influenzae pneumonia Patient was recently diagnosed with COVID and developed post COVID H. influenzae pneumonia. He was in the hospital and discharged home on 02/24/2024. At that point he refused discharge to TCU. He came back with debility and failure to thrive as well as coughing and shortness of breath. Currently on IV Unasyn and azithromycin. Sputum cultures pending. Urine for strep and Legionella negative. PT OT on board. Fall precautions. Respiratory panel also negative. #A-fib with RVR Resolved. On metoprolol. On Eliquis and cardizem had to be started on cardizem drip on admission. Will wean off cardizem drip. #SHIMA: Creatinine is 1.46. Was 1.91 on admission. Baseline is around 1. Will trend creatinine. Very gently hydrate with IV fluids. #Hypertension: On metoprolol. Lisinopril and spironolactone held due to SHIMA. IV hydralazine as needed #Hyperlipidemia: Not on any statins. Unclear why. #History of CVA: On Eliquis #Heart failure with reduced ejection fraction: Not in exacerbation. Lisinopril and spironolactone on hold due to SHIMA #Inflammatory bowel disease: On mesalamine #Anxiety and depression: Bupropion #DVT prophylaxis: On Eliquis Disposition: Patient now agreeable to placement. Charges/Coding Visit Charges Inpatient E&M: 19780 Subs Hosp L2
[2024-02-28] MEDS: guaiFENesin 10 ML UDC (200MG/10ML) 20 ML PO (21:16)
[2024-02-29] VITALS (29 sets, daily range): BP systolic 93–137; BP diastolic 66–101; PULSE 78–97; RESP 18–31; TEMP 36.2–36.8; O2SAT 88–94; BMI 21.4
[2024-02-29] MEDS: Diltiazem 125 MG in Dextrose 5%-Water (100mL Bag) 100 ML 10 MG IV (02:12)
[2024-02-29] MEDS: Ampicillin/Sulbactam 3 GM in 0.9% Normal Saline (100mL MB+) 100 ML IV ×2 (05:35→11:37)
[2024-02-29] MEDS: Budesonide Respules 0.5 MG/2 ML AMPUL.NEB. INHALATION ×2 (06:53→20:40)
[2024-02-29] MEDS: Mesalamine 1.2 GM Tablet 2.4 GM PO (07:50)
[2024-02-29] MEDS: Hydroxychloroquine 200 MG Tablet 400 MG PO (07:50)
[2024-02-29 07:56] LABS: Absolute Lymphocyte Count 0.48 X10^3/uL (0.83-4.51); Absolute Neutrophil Count 10.3 X10^3/uL (2.0-7.7); Basophil# 0.05 X10^3/uL; Basophil% 0.4 % (0-1); Eosinophil# 0.06 X10^3/uL; Eosinophils% 0.5 % (0-5); Hematocrit 40.7 % (40-54); Hemoglobin 13.4 g/dL (13.0-16.5); Lymphocyte # 0.48 X10^3/ul (0.83-4.51); Mean Corp Hgb Conc 32.9 g/dL (32-36); Mean Corpuscular Hgb 30.5 pg (27.0-32.0); Mean Corpuscular Volume 92.7 fL (80-94); Mean Platelet Vol. 11.2 fl (6.2-12.0); NRBC Flagged by Analyzer 0 % (0-5); Neutrophil # 10.34 X10^3/uL (2.7-7.7); Neutrophil % 86.5 % (47-70); POSITIVE DIFFERENTIAL YES; Platelet Count 513 K/mm3 (150-450); RBC Distribution Width CV 14.8 % (11.6-14.6); RBC Distribution Width SD 50.6 fl (35.1-43.9); Red Blood Count 4.39 M/mm3 (4.6-6.2)
[2024-02-29 08:34] LABS: Anion Gap 9 (5-15); BUN 41 mg/dL (7-18); BUN/Creat Ratio 28.7 RATIO (10-20); Calcium,Total 8.4 mg/dL (8.5-10.1); Chloride 108 mmol/L (98-107); Creatinine, Serum 1.43 mg/dL (0.70-1.30); EST Glomerular Filtration Rate 50 mL/min (>60); Est Glom Filt Rate - Afr Amer 60 mL/min (>60); Estimated Creatinine Clearance 38.92 ml/min; Glucose 99 mg/dL (74-106); Potassium 4.5 mmol/L (3.5-5.1); Sodium Level 137 mmol/L (136-145)
[2024-02-29] MEDS: Azithromycin 500 MG in 0.9% Normal Saline (250mL Bag) 250 ML 255 MG IV (09:05)
[2024-02-29] MEDS: APIXABAN 2.5 MG TABLET (WCH) PO ×2 (09:06→20:36)
[2024-02-29] MEDS: Metoprolol(XL)Succ 50 MG Tablet PO (09:06)
[2024-02-29] MEDS: buPROPion (XL) 150 MG TABLET.XL PO (09:06)
--- NOTE | 2024-02-29 10:27 | CT_ITS ---
EXAM: CT CHEST WITH INTRAVENOUS CONTRAST CLINICAL INDICATION: shortness of breath, CURRENT COVID TECHNIQUE: Helically acquired images were obtained of the chest with intravenous contrast. CTDIvol = ( 20.28 ) mGy, DLP = ( 673.05 ) mGycm This CT exam was performed using one or more of the following dose reduction techniques: automated exposure control, adjustment of the mA and/or kV according to patient size, and/or use of iterative reconstruction technique. CONTRAST: IV 100mL Isovue-300 COMPARISON: No relevant prior studies available. FINDINGS: LUNGS AND PLEURAL SPACES: Heterogeneous airspace disease involving all lobes, worse at the lower lobes bilaterally. Small right pleural effusion and tiny left pleural effusion. No pneumothorax. No mass. HEART: Right atrial enlargement. No pericardial effusion. MEDIASTINUM: Unremarkable. No mediastinal or hilar adenopathy. Esophagus is unremarkable. No hiatal hernia. THYROID: Unremarkable. No thyroid lesions. BONES/JOINTS: Degenerative changes spine with no unusual lytic or sclerotic lesions of bone. SOFT TISSUES: Bilateral gynecomastia. VASCULATURE: Unremarkable. No obvious central pulmonary embolism although this study was not performed with the pulmonary embolism protocol. No PE. No aneurysm or dissection. LYMPH NODES: Reactive small bilateral hilar lymph nodes. OTHER FINDINGS: Unremarkable upper abdomen. CT/Chest WITH Contrast IMPRESSION: 1. Bilateral multilobar pneumonia. 2. Small right pleural effusion and tiny left pleural effusion. No pneumothorax. 3. No PE. AIDOC was utilized to assist in identifying pertinent positive findings. Electronically Signed: Shayan Dobson MD at 12:26 [facility] ,
--- NOTE | 2024-02-29 10:46 | PN_ITS ---
Subjective Subjective Patient seen and examined. He was working with therapy. Patient looks quite frail and weak. He had become hypoxic after working with therapy and had sit by the side of the bed for about 20 minutes to even get up to 90%. His oxygen has been turned up to 8 L of oxygen. He does admit to feeling short of breath and also admits to coughing. His cough is nonproductive though it sounds wet. Review of symptoms otherwise negative. He remains on Cardizem drip. Objective Data Objective Data Vital Signs: Vital Signs Temp Pulse Resp BP Pulse Ox O2 Del Method O2 Flow Rate 98.3 F 88 29 H 97/78 93 High Flow 8 02/29/24 08:00 02/29/24 10:00 02/29/24 10:00 02/29/24 10:00 02/29/24 10:00 02/29/24 10:00 02/29/24 10:18 Oxygen Flow Rate (L/min) 8 Oxygen Delivery Method High Flow Weight: 166 lb 10.711 oz Body Mass Index (BMI) 21.4 Intake & Output: Intake and Output for Last 24 Hours 02/27/24 02/28/24 02/29/24 23:59 23:59 23:59 Intake Total 917 / 917 2030.25 / 2040.25 589 / 589 Output Total 1000 / 1000 500 / 500 Balance 917 / 717 1030.25 / 1040.25 89 / 89 Lab / Micro Data 02/29/24 07:30 02/29/24 07:30 Labs: Laboratory Results - last 24 hr 02/29/24 07:30: WBC 12.0 H, RBC 4.39 L, Hgb 13.4, Hct 40.7, MCV 92.7, MCH 30.5, MCHC 32.9, RDW Std Deviation 50.6 H, RDW Coeff of Dominick 14.8 H, Plt Count 513 H, MPV 11.2, Immature Gran % (Auto) 3.600 H, Neut % (Auto) 86.5 H, Lymph % (Auto) 4.0 L, [place] % (Auto) 5.0, Eos % (Auto) 0.5, Baso % (Auto) 0.4, Absolute Neuts (auto) 10.3 H, Absolute Lymphs (auto) 0.48 L, Nucleated RBC % 0, Sodium 137, Potassium 4.5, Chloride 108 H, Carbon Dioxide 20.0 L, Anion Gap 9, BUN 41 H, C reatinine 1.43 H, Estim Creat Clear Calc 38.92, Est GFR (MDRD) Af Amer 60, Est GFR (MDRD) Non-Af 50 L, BUN/Creatinine Ratio 28.7 H, Glucose 99, Calcium 8.4 L Micro: Microbiology 02/28/24 01:10 Urine, Clean Catch Legionella Antigen - Final 02/28/24 01:10 Urine, Clean Catch Streptococcus pneumoniae Antigen (M - Final 02/27/24 01:10 Nasal Secretion MRSA (PCR) - Final 02/27/24 23:10 Mucosa - Nasopharyngeal Respiratory Panel (PCR) - Final Rhythm Strip Rhythm Strip: A-fib Rate: 140 Ectopy: None Physical Exam Const alert and oriented x3 Constitutional Narrative: frail, weak General Appearance: cooperative HEENT normocephalic, head/scalp atraumatic, moist oral mucous membranes and oropharynx normal Eyes PERRL and EOMs intact bilaterally Neck no lymphadenopathy, supple and no JVD Lymph Lymphatic: no lymphadenopathy noted and no lymphedema noted Resp Resp Narrative: Mildly diminished breath sounds bibasilarly. Has coarse crackles in left mid and lower lung carney. On 8L of oxygen. Cardio regular rate, regular rhythm, S1 normal heart sound, S2 normal heart sound and no murmurs GI normal to inspection, nondistended, normoactive bowel sounds, soft to palpation, non-tender and non-distended Extremity normal capillary refill General Extremity: no tenderness to palpation of joints or extremities Skin General Skin Exam: no breakdown Neuro CN's II-XII intact bilaterally, no focal motor deficits and no sensory deficits noted Motor Exam: strength 5/5 throughout and general weakness Psych thought process normal and cooperative Appearance: appropriate Assessment & Plan Assessment/Plan (1) SHIMA (acute kidney injury): (2) Pneumonia due to Haemophilus influenzae: (3) Atrial fibrillation with RVR: PLAN: Plan #Acute hypoxic respiratory failure due to possible failed outpatient therapy for H influenzae pneumonia * Patient was recently diagnosed with COVID and developed post COVID H. influenzae pneumonia. He was in the hospital and discharged home on 02/24/2024. At that point he refused discharge to TCU. * He came back with debility and failure to thrive as well as coughing and shortness of breath. * Currently on IV Unasyn and azithromycin. Sputum cultures pending. * breathing has worsened today and he is now on 8L of oxygen. * He is in positive fluid balance by 140cc. * check BNP and diurese with IV lasix * get CTA chest. He is on Xarelto which he claims to be compliant with) but is prudent to get a CT of the chest to rule out any other pathology. * Low threshold for consulting pulmonology if shortness of breath persist. * PT/OT on board. Fall precautions #A-fib with RVR * Resolved. On metoprolol. On Eliquis and cardizem * remains on cardizem drip; will wean off. #SHIMA: * Creatinine is 1.43 today and continues to trend downwards. Was 1.91 on admission. * Baseline is around 1. * Will trend creatinine. * #Hypertension: On metoprolol. Lisinopril and spironolactone held due to SHIMA. IV hydralazine as needed #Hyperlipidemia: Not on any statins. Unclear why. #History of CVA: On Eliquis #Heart failure with reduced ejection fraction: Not in exacerbation. Lisinopril and spironolactone on hold due to SHIMA #Inflammatory bowel disease: On mesalamine #Anxiety and depression: Bupropion #DVT prophylaxis: On Eliquis Disposition: Patient now agreeable to placement. Charges/Coding Visit Charges Inpatient E&M: 46336 [facility] Hosp L3
[2024-02-29 11:38] LABS: BNP,B-Type NATRIURETIC PEPTIDE 171.3 pg/mL (0-100)
[2024-02-29] MEDS: 0.9% Saline Lock 10 ML Syringe IV (11:38)
[2024-02-29] MEDS: 0.9% Normal Saline (1000mL) 1,000 ML 75 ML IV (14:32)
[2024-02-29] MEDS: Piperacil/Tazobactam 3.375 GM in 0.9% Normal Saline (50mL MB+) 50 ML IV ×2 (14:35→20:37)
[2024-02-29 16:35] LABS: Allen Test Positive; Base Excess -6 mmol/L (-2 to +2); Bicarbonate 17.8 mmol/L (22-26); Blood Gas Specimen Type ART; Mode Not entered; O2 Delivery Device HFNC; PO2 58 mmHG (75-100); SITE L Radial; SO2 92 % (95-99); Total Carbon Dioxide 19 mmol/L; pCO2 24.7 mmHg (35-45); pH 7.47 (7.35-7.45)
[2024-03-01] VITALS (30 sets, daily range): BP systolic 107–140; BP diastolic 71–116; PULSE 88–120; RESP 20–35; TEMP 35.9–36.6; O2SAT 85–96; BMI 22.4
[2024-03-01] MEDS: Piperacil/Tazobactam 3.375 GM in 0.9% Normal Saline (50mL MB+) 50 ML IV ×3 (05:55→20:30)
[2024-03-01] MEDS: Albuterol 2.5 MG/3 ML VIAL.NEB. INHALATION ×4 (07:12→20:07)
[2024-03-01] MEDS: Budesonide Respules 0.5 MG/2 ML AMPUL.NEB. INHALATION ×2 (07:12→20:07)
[2024-03-01] MEDS: Mesalamine 1.2 GM Tablet 2.4 GM PO (07:41)
[2024-03-01] MEDS: Hydroxychloroquine 200 MG Tablet 400 MG PO (07:41)
[2024-03-01] MEDS: buPROPion (XL) 150 MG TABLET.XL PO (07:41)
[2024-03-01] MEDS: APIXABAN 2.5 MG TABLET (WCH) PO ×2 (07:41→20:30)
[2024-03-01] MEDS: Metoprolol(XL)Succ 50 MG Tablet PO ×3 (07:41→14:23)
[2024-03-01 08:05] LABS: Absolute Lymphocyte Count 0.49 X10^3/uL (0.83-4.51); Absolute Neutrophil Count 10.1 X10^3/uL (2.0-7.7); Basophil# 0.05 X10^3/uL; Basophil% 0.4 % (0-1); Eosinophil# 0.04 X10^3/uL; Eosinophils% 0.3 % (0-5); Hematocrit 40.9 % (40-54); Hemoglobin 13.2 g/dL (13.0-16.5); Lymphocyte # 0.49 X10^3/ul (0.83-4.51); Lymphocyte % 4.2 % (19-41); Mean Corp Hgb Conc 32.3 g/dL (32-36); Mean Corpuscular Hgb 29.9 pg (27.0-32.0); Mean Corpuscular Volume 92.7 fL (80-94); Mean Platelet Vol. 10.9 fl (6.2-12.0); Monocyte# 0.51 X10^3/uL; Monocyte% 4.4 % (0-10); NRBC Flagged by Analyzer 0 % (0-5); Neutrophil % 87.5 % (47-70); POSITIVE DIFFERENTIAL YES; Platelet Count 471 K/mm3 (150-450); RBC Distribution Width CV 14.8 % (11.6-14.6); RBC Distribution Width SD 50.8 fl (35.1-43.9); Red Blood Count 4.41 M/mm3 (4.6-6.2); White Blood Count 11.6 K/mm3 (4.4-11.0)
[2024-03-01 08:25] LABS: Anion Gap 8 (5-15); BUN 35 mg/dL (7-18); BUN/Creat Ratio 25.7 RATIO (10-20); Calcium,Total 8.4 mg/dL (8.5-10.1); Chloride 111 mmol/L (98-107); Creatinine, Serum 1.36 mg/dL (0.70-1.30); EST Glomerular Filtration Rate 53 mL/min (>60); Est Glom Filt Rate - Afr Amer 64 mL/min (>60); Estimated Creatinine Clearance 42.92 ml/min; Glucose 91 mg/dL (74-106); Potassium 4.2 mmol/L (3.5-5.1); Sodium Level 138 mmol/L (136-145)
--- NOTE | 2024-03-01 13:02 | EX.PCM.CONCC ---
Assessment & Plan Assessment/Plan (1) Hypoxemia: PLAN: Plan RECOMMENDATIONS: 1. Supplemental oxygen to maintain saturations at or above 90%. 2. Continue empiric broad-spectrum antimicrobials. 3. Start empiric steroids today. 4. Consider gentle diuresis as tolerated by hemodynamics and renal function. 5. Encourage incentive spirometer use and mobilize patient as tolerated. IMPRESSIONS: 1. Acute hypoxemic respiratory failure Appears to be secondary to bilateral multifocal pneumonia. The patient has been initiated on appropriate broad-spectrum antimicrobial therapy. Given the severity of his underlying disease and hypoxemia, will start steroids today. In the interim, continue supplemental oxygen to maintain saturations at or above 90%. The patient may ultimately require gentle diuresis, depending on his clinical state. 2. History of rheumatoid arthritis/chronic kidney disease/coronary artery disease/paroxysmal atrial fibrillation/flutter Complicates care, management, recovery and prognosis. Continue home medications as indicated. Encourage incentive spirometer use and mobilize patient as tolerated. This note was generated with [facility] dictation software. It may contain incorrect words, spelling, and punctuation that were not noted in checking the note before signing. HPI Consult Data Date of Consult: 03/01/24 HPI Narrative Reason for Consultation: Acute hypoxemic respiratory failure HPI Narrative: The patient is an 88-year-old male, with a history as outlined below, who presented to the emergency department on February 26 with worsening dyspnea and hypoxemia. The patient had just been admitted to the hospital February 18 through February 23 with hypoxemia related to COVID-19 with superimposed H. influenzae pneumonia. The patient had tested positive for COVID-19 on February 10. The patient was ultimately discharged home with a 7-day course of Augmentin. He was not discharged home on supplemental oxygen. The patient denied any pre-existing lung conditions. He has never been diagnosed with COPD or asthma. However, he does have a history of rheumatoid arthritis, chronic kidney disease, coronary artery disease and paroxysmal atrial fibrillation/flutter. On presentation to the emergency department, the patient was documented to be afebrile and hemodynamically stable. He was initially saturating 86% on room air. Laboratory evaluation revealed a white blood cell count of 11,000. Platelet count was elevated at 554,000. Chemistry profile was notable for a sodium of 135, bicarbonate of 20, BUN of 55 and creatinine of 1.9. Troponin was mildly elevated. Procalcitonin was noted to be 0.21. MRSA screen was negative. Respiratory viral panel was negative. Strep and urine Legionella antigens were negative. The patient was placed on broad-spectrum antimicrobials and admitted to the progressive care unit for further management. The patient's hospital course has been complicated by worsening hypoxemia, requiring escalating amounts of supplemental O2. Contrasted chest CT completed yesterday demonstrated bilateral airspace disease and a small right pleural effusion. [facility] Medical History Former tobacco use 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 History of stroke CAD (coronary artery disease) Atrial fibrillation/flutter CKD (chronic kidney disease), stage III Cardiomyopathy Lung nodules BPH (benign prostatic hyperplasia) Rheumatoid arthritis Essential hypertension Hypertension HTN (hypertension) Colitis Home Medications ?Medication ?Instructions ?Recorded ?Last Taken ?Type hydroxychloroquine 200 mg tablet 400 mg PO DAILY RHEUMATOID 06/23/22 02/27/24 History ARTHRITIS Handicap Placard #1 ea 09/17/22 Unknown Rx furosemide 40 mg tablet 40 mg PO PRN PRN edema 11/22/22 02/27/24 History metoprolol succinate 50 mg 50 mg PO DAILY #90 tabs 06/09/23 02/26/24 Rx tablet,extended release 24 hr spironolactone 25 mg tablet 25 mg PO DAILY FLUID #30 tabs 08/01/23 02/27/24 Rx dapagliflozin propanediol 10 mg 10 mg PO DAILY DIABETES #30 tabs 08/23/23 02/27/24 Rx tablet (Farxiga) tramadol 50 mg tablet 50 mg PO BID PRN pain 11/22/23 Unknown History apixaban 5 mg tablet (Eliquis) 5 mg PO BID #180 tabs 12/13/23 02/27/24 Rx bupropion HCl 150 mg 24 hr tablet, 150 mg PO DAILY antidepressant 02/19/24 02/27/24 History extended release mesalamine 0.375 gram 1.5 g PO DAILY Ulcerative colitis 02/19/24 02/27/24 History capsule,extended release 24 hr amoxicillin 875 mg-potassium 1 tab PO BID #10 tabs 02/24/24 02/27/24 Rx clavulanate 125 mg tablet albuterol sulfate 90 mcg/actuation 2 puff inhalation Q4H PRN wheezing 02/27/24 Unknown History aerosol inhaler (Ventolin HFA) lisinopril 20 mg tablet 20 mg PO DAILY Blood pressure 02/27/24 02/27/24 History Allergy/AdvReac Type Severity Reaction Status Date / Time etanercept (From Enbrel) AdvReac Rash Verified 02/27/24 20:04 Family History Mother Diabetes CAD (coronary artery disease) Myocardial infarction, Onset Age: 82 Father CAD (coronary artery disease) Brother CAD (coronary artery disease) Hypertension Surgical History History of cardioversion History of bilateral cataract extraction History of foot surgery History of hernia repair History of arthroscopy of knee History of bilateral knee replacement Social History household members: spouse housing: house Smoking Status: Former smoker how long ago did patient quit smokin years ago alcohol intake: current alcohol intake frequency: 0-2 drinks per day Alcohol type: beer details: wine substance use type: does not use caffeine: Yes Type: coffee Number of servings: 2 ROS ROS Narrative 10 systems were reviewed with pertinent positives as noted in the HPI above. Physical Exam Const alert and no apparent distress Constitutional Narrative: Sitting in bedside recliner. General Appearance: cooperative HEENT normocephalic, head/scalp atraumatic and moist oral mucous membranes General Ear: hearing grossly impaired Eyes EOMs intact bilaterally and conjunctivae normal Neck supple General: trachea midline Chest inspection of chest normal Resp Auscultation: rales and diminished lung sounds Cardio S1 normal heart sound and S2 normal heart sound Rate: tachycardic GI normal to inspection, nondistended, normoactive bowel sounds Extremity no clubbing, cyanosis or edema Skin no rashes or lesions noted Neuro CN's II-XII intact bilaterally, moves all extremities and no focal motor deficits Psych cooperative and affect normal Lab / Micro Data 03/01/24 07:30 03/01/24 07:30 Labs: Laboratory Results - last 24 hr 03/01/24 07:30: WBC 11.6 H, RBC 4.41 L, Hgb 13.2, Hct 40.9, MCV 92.7, MCH 29.9, MCHC 32.3, RDW Std Deviation 50.8 H, RDW Coeff of Dominick 14.8 H, Plt Count 471 H, MPV 10.9, Immature Gran % (Auto) 3.200 H, Neut % (Auto) 87.5 H, Lymph % (Auto) 4.2 L, [place] % (Auto) 4.4, Eos % (Auto) 0.3, Baso % (Auto) 0.4, Absolute Neuts (auto) 10.1 H, Absolute Lymphs (auto) 0.49 L, Nucleated RBC % 0, Sodium 138, Potassium 4.2, Chloride 111 H, Carbon Dioxide 19.0 L, Anion Gap 8, BUN 35 H, Creatinine 1.36 H, Estim Creat Clear Calc 42.92, Est GFR (MDRD) Af Amer 64, Est GFR (MDRD) Non-Af 53 L, BUN/Creatinine Ratio 25.7 H, Glucose 91, Calcium 8.4 L ABG Data ABG results: ABG 02/29/24 16:32 Specimen Type ART Sample Site L Radial pH 7.47 H Bicarbonate Actual 17.8 L Total CO2 19 Base Excess -6 L O2 Saturation 92 L O2 % 8.0 ABG pCO2 24.7 L ABG pO2 58 L Andrea Test Positive O2 Delivery Device HFNC Vent Mode Not entered Rhythm Strip Rhythm Strip: A-fib Rate: 140 Ectopy: None Charges/Coding Visit Charges Inpatient E&M: 38568 Init Hosp L3
[2024-03-01] MEDS: 0.9% Saline Lock 10 ML Syringe IV ×2 (18:14→20:35)
--- NOTE | 2024-03-01 19:45 | PN.HOSP_ITS ---
Reason for Visit Reason for Visit: Diagnoses Unspecified atrial fibrillation (02/27/24) Pneumonia due to Hemophilus influenzae (02/27/24) Acute kidney failure, unspecified (02/27/24) Hypoxemia (02/27/24) Other specified abnormal findings of blood chemistry (02/27/24) Other specified health status (02/27/24) Subjective Subjective Patient was seen and examined today, I talked briefly with pulmonary medicine about his care. This morning he was on high flow oxygen, at the time of this dictation early evening of 03/01/2024, he is on 6 L/min via nasal cannula. Patient will need short-term placement in a shelter facility for short- term skilled services. Objective Data Objective Data Vital Signs: Vital Signs Temp Pulse Resp BP Pulse Ox O2 Del Method O2 Flow Rate 97.4 F L 99 29 H 120/83 H 94 High Flow 6 03/01/24 18:50 03/01/24 18:50 03/01/24 18:50 03/01/24 18:50 03/01/24 18:50 03/01/24 18:50 03/01/24 18:50 Oxygen Flow Rate (L/min) 6 Oxygen Delivery Method High Flow Weight: 79.3 kg Body Mass Index (BMI) 22.4 Intake & Output: Intake and Output for Last 24 Hours 02/28/24 02/29/24 03/01/24 23:59 23:59 23:59 Intake Total 2029.25 / 0.25 1158 / 1158 1400 / 1400 Output Total 1000 / 1000 750 / 750 1000 / 1000 Balance 1030.25 / 1040.25 408 / 408 400 / 400 Lab / Micro Data 03/03/24 06:33 03/03/24 06:33 Labs: Laboratory Results - last 24 hr 03/01/24 07:30: WBC 11.6 H, RBC 4.41 L, Hgb 13.2, Hct 40.9, MCV 92.7, MCH 29.9, MCHC 32.3, RDW Std Deviation 50.8 H, RDW Coeff of Dominick 14.8 H, Plt Count 471 H, MPV 10.9, Immature Gran % (Auto) 3.200 H, Neut % (Auto) 87.5 H, Lymph % (Auto) 4.2 L, [place] % (Auto) 4.4, Eos % (Auto) 0.3, Baso % (Auto) 0.4, Absolute Neuts (auto) 10.1 H, Absolute Lymphs (auto) 0.49 L, Nucleated RBC % 0, Sodium 138, Potassium 4.2, Chloride 111 H, Carbon Dioxide 19.0 L, Anion Gap 8, BUN 35 H, C reatinine 1.36 H, Estim Creat Clear Calc 42.92, Est GFR (MDRD) Af Amer 64, Est GFR (MDRD) Non-Af 53 L, BUN/Creatinine Ratio 25.7 H, Glucose 91, Calcium 8.4 L Micro: Microbiology 02/28/24 01:10 Urine, Clean Catch Legionella Antigen - Final 02/28/24 01:10 Urine, Clean Catch Streptococcus pneumoniae Antigen (M - Final 02/27/24 01:10 Nasal Secretion MRSA (PCR) - Final 02/27/24 23:10 Mucosa - Nasopharyngeal Respiratory Panel (PCR) - Final Rhythm Strip Rhythm Strip: A-fib Rate: 140 Ectopy: None Physical Exam Const alert, oriented x3, no apparent distress and average body habitus General Appearance: cooperative, well kempt and well developed Orientation / Consciousness: awake, oriented to person, oriented to place and oriented to time HEENT normocephalic, head/scalp atraumatic and moist oral mucous membranes Eyes PERRL, EOMs intact bilaterally and conjunctivae normal Neck supple, no JVD and thyroid normal General: trachea midline Resp normal respiratory effort, no retractions, no use of accessory muscles and clear to auscultation bilaterally Auscultation: Negative for rales, rhonchi or wheezes Cardio regular rate, regular rhythm, S1 normal heart sound, S2 normal heart sound, no murmurs, no rub and no gallops GI normal to inspection, nondistended, normoactive bowel sounds, soft to palpation, non-tender and non-distended Extremity no clubbing, cyanosis or edema Skin no rashes or lesions noted General Skin Exam: no breakdown Neuro oriented x3, CN's II-XII intact bilaterally, no focal motor deficits and no sensory deficits noted Sensorium / Orientation: awake and alert Speech: speech normal Psych affect normal Assessment & Plan Assessment/Plan (1) Hypoxemia: PLAN: Plan 1. Acute hypoxic respiratory failure secondary to bilateral multifocal pneumonia-patient remains on broad-spectrum antibiotic therapy, he is being seen by pulmonary medicine, pulse ox will be monitored and oxygen will be weaned if possible, patient was placed on corticosteroids by pulmonary medicine #2 paroxysmal atrial fibrillation-patient is on rate limiting medications and anticoagulants he will be monitored on telemetry #3 essential hypertension-patient is on metoprolol, his other medications including lisinopril and spironolactone for his blood pressure will be held due to his acute kidney injury #4 acute kidney injury-labs will be monitored Total clinical time spent by myself addressing the patient's medical issues, reviewing all of his data, and collaborating with patient's care team: 35 minutes Charges/Coding Visit Charges Inpatient E&M: 97033 Subs Hosp L2
[2024-03-01] MEDS: Metoprolol Tartrate 5 MG/5 ML Vial IV (22:14)
[2024-03-02] VITALS (25 sets, daily range): BP systolic 104–156; BP diastolic 76–135; PULSE 58–124; RESP 18–28; TEMP 36.4–37.2; O2SAT 86–98; BMI 22.4
[2024-03-02] MEDS: Metoprolol Tartrate 5 MG/5 ML Vial IV (04:21)
[2024-03-02] MEDS: 0.9% Saline Lock 10 ML Syringe IV ×3 (04:21→12:24)
[2024-03-02] MEDS: Piperacil/Tazobactam 3.375 GM in 0.9% Normal Saline (50mL MB+) 50 ML IV ×3 (04:26→22:19)
[2024-03-02] MEDS: Budesonide Respules 0.5 MG/2 ML AMPUL.NEB. INHALATION ×2 (07:18→20:24)
[2024-03-02] MEDS: Albuterol 2.5 MG/3 ML VIAL.NEB. INHALATION ×3 (07:18→20:24)
[2024-03-02 07:30] LABS: Absolute Lymphocyte Count 0.39 X10^3/uL (0.83-4.51); Absolute Neutrophil Count 6.9 X10^3/uL (2.0-7.7); Basophil# 0.02 X10^3/uL; Basophil% 0.3 % (0-1); Hematocrit 41.9 % (40-54); Hemoglobin 13.4 g/dL (13.0-16.5); Lymphocyte # 0.39 X10^3/ul (0.83-4.51); Lymphocyte % 5.1 % (19-41); Mean Corpuscular Hgb 29.8 pg (27.0-32.0); Mean Corpuscular Volume 93.1 fL (80-94); Mean Platelet Vol. 11.4 fl (6.2-12.0); Monocyte# 0.09 X10^3/uL; Monocyte% 1.2 % (0-10); NRBC Flagged by Analyzer 0 % (0-5); Neutrophil % 90.9 % (47-70); POSITIVE DIFFERENTIAL YES; Platelet Count 481 K/mm3 (150-450); RBC Distribution Width CV 14.7 % (11.6-14.6); RBC Distribution Width SD 51.2 fl (35.1-43.9); White Blood Count 7.6 K/mm3 (4.4-11.0)
[2024-03-02 07:47] LABS: Anion Gap 7 (5-15); BUN 39 mg/dL (7-18); BUN/Creat Ratio 23.9 RATIO (10-20); Calcium,Total 8.6 mg/dL (8.5-10.1); Chloride 111 mmol/L (98-107); Creatinine, Serum 1.63 mg/dL (0.70-1.30); EST Glomerular Filtration Rate 43 mL/min (>60); Est Glom Filt Rate - Afr Amer 52 mL/min (>60); Estimated Creatinine Clearance 35.68 ml/min; Glucose 144 mg/dL (74-106); Potassium 4.9 mmol/L (3.5-5.1); Sodium Level 138 mmol/L (136-145)
--- NOTE | 2024-03-02 09:51 | ST.MBS ---
Modified Barium Swallow Patient Information Study Date: 03/02/24 Study Time: 08:30 Direct Billable Minutes: 120 Total Minutes procedure & reportin Diagnosis: PNA J18.9; Hypoxia R09.02 Referring Physician: Donato Crowder Reason for Referral: Objectively assess swallow function, assess risk for aspiration, and determine recommendations for least restrictive diet textures and compensatory strategies to improve safety of swallow. Medical History: PMH: Former tobacco use, 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, History of stroke, CAD, Atrial fib/flutter, CKD stage 3, Cardiomyopathy, Lung nodules, BPH, RA, HTN, Colitis. Pt was recently discharged on 02/24/24 following evaluation and treatment of hypoxia secondary to recent COVID-19 infection with superimposed H. influenzae pneumonia. Pt was recommended for discharge to TCU; however, patient and family deferred and transitioned to home. Unfortunately, pt then experienced worsening fatigue, malaise, and difficulty breathing w/ hypoxia following first PT, and so he re-presented to [facility] ED 02/27/24. He was admitted for management of SHIMA, PNA d/t Haemophilus influenzae, and A fib. RN referred pt for ST due to concerns for dysphagia and worsening respiratory status requiring increased supplemental 02. During BSE 03/01/2024, pt was recommended NPO with plans for MBSS today to further assess aspiration risk prior to diet advancement. Chest CT 02/29/2024 - IMPRESSION: 1. Bilateral multilobar pneumonia. 2. Small right pleural effusion and tiny left pleural effusion. No pneumothorax. 3. No PE. Current Diet Ordered: NPO - sips/chips Dentition: Natural Teeth, Decay and Missing Teeth Mental Status: Impaired (Confusion) Respiratory Status: Oxygenating on 4L/M nasal cannula (15L VIA HIGH FLOW NASAL CANNULA) Penetration-Aspiration Scale Penetration-Aspiration Scale: OBJECTIVE ASSESSMENT OF SWALLOW FUNCTION (QUANTITATIVE ? PER TRIAL): PENETRATION / ASPIRATION SCALE (ESTEBAN): 1 = does not enter airway 2 = enters airway/above vocal folds/ejected 3 = enters airway/above vocal folds/not ejected 4 = enters airway/contacts vocal folds/ejected 5 = enters airway/contacts vocal folds/not ejected 6 = enters airway/below vocal folds/ejected 7 = enters airway/below vocal folds/not ejected despite effort 8 = enters airway/below vocal folds/no effort VIDEOFLOROSCOPIC SCALE SCORE (ESTEBAN): Grade I = aspiration of material that has penetrated into the laryngeal vestibule, intact cough reflex Grade II = aspiration < 10 % of the bolus, intact cough reflex Grade III = aspiration of < 10 % of the bolus, reduced cough reflex or aspiration of > 10 % of the bolus, intact cough reflex Grade IV = aspiration of > 10 % of the bolus, reduced cough reflex Penetration-Aspiration Scale Score Thin Liquid via teaspoon: Result: 2= enter airway/above vocal folds/ejected Thin Liquid via teaspoon Trial 2: Result: 1= does not enter airway Thin Liquid via small single sip: cup: Result: 2= enter airway/above vocal folds/ejected [place] Thick Liquid via sequential sips: cup: Result: 3= enters airways/above vocal folds/not ejected Pudding via teaspoon: Result: 1= does not enter airway Comment: Esophageal screen - Retention in the middle and lower esophagus w/ retrograde flow to the upper esophagus. [place] Thick Liquid via sequential sips: cup Trial 2: Result: 7= enters airways/below vocal folds/not ejected despite effort Comment: Esophageal screen - Retention in the middle and lower esophagus w/ retrograde flow to the upper esophagus, but barium mostly cleared through the LES by the end of screen. Thin Liquid via single sip: straw: Result: 2= enter airway/above vocal folds/ejected 1/4 Cookie: Result: 1= does not enter airway Thin Liquid via single sip: straw Trial 2: Result: 2= enter airway/above vocal folds/ejected Thin Liquid via single sip: straw Trial 3: Result: 2= enter airway/above vocal folds/ejected Comment: Esophageal screen - Retention in the lower esophagus w/ retrograde flow to the middle esophagus. Oral Phase Labial Seal: No Labial Escape Tongue Control During Bolus Hold: Posterior escape of less than half of bolus Bolus Preparation/Mastication: Disorganized chewing/mashing with solid pieces of bolus unchewed (Small piece of un-chewed cookie in vallecula after the swallow) Bolus Transport/Lingual Motion: Repetitive/disorganized tongue motion Oral Residue: Residue collection on oral structures Pharyngeal Phase Initiation of Pharyngeal Swallow: Bolus head at posterior laryngeal surgace of epiglottis Soft Palate Elevation: Escape to nasopharynx Laryngeal Elevation: Partial superior movement thyroid cart/partial apprx aryt-epig petiole Anterior Hyoid Excursion: Partial anterior movement Epiglottic Movement: Complete inversion Laryngeal Vestibule Closure at Height of Swallow: Incomplete; narrow column of air/contrast in laryngeal vestibule Pharyngeal Stripping Wave: Present - diminished Pharyngoesophageal Segment Opening: Parital distension and partial duration; parital obstruction of flow Tongue Base Retraction: Narrow column of contrast between tongue base & post. pharyngeal wall Pharyngeal Residue: Collection of residue within or on pharyngeal structures Esophageal Phase Esophageal Clearance: Esophageal retention w/ retrograde flow below pharyngoesophageal seg. Diagnosis/Impression Diagnosis: Moderate oropharyngeal dysphagia R13.12 Impression: The oral phase is primarily marked by... -Disorganized tongue motion for A-P transport. -Decreased bolus control w/ premature posterior loss of <1/2 the bolus to the posterior surface of the epiglottis prior to swallow onset. -Decreased mastication w/ small piece of cookie un-chewed. The pharyngeal phase is primarily marked by... -Mild-moderate pharyngeal residues most notable w/ cookie due to decreased TB retraction, pharyngeal stripping wave, and UES opening/duration. Liquid wash was somewhat effective in clearing pharyngeal residues of cookie. -Decreased bolus control due to poor anterior hyoid excursion and laryngeal elevation. -Aspiration of mildly/nectar thick liquids by sequential cup sips. Consistent laryngeal penetration of thin liquids, which fully ejected each swallow. The esophageal phase is primarily marked by... -Retention of pudding in the middle/lower esophagus, which mostly cleared w/ liquid wash. Recommendations Diet: Mechanical Soft Textures (Soft and Bite Size Textures - IDDSI Level 6) and Thin Liquids Comment: Stop food/drink if increased s/s of aspiration as meal continues as the patient is a high risk for reflux aspiration Compensatory Strategies: Small Bites, Small Sips (ONE AT A TIME), Sips by straw only, Slow Rate, Alternate bites/solids and sips/liquids (1:1 ratio), Sitting upright and Remain sitting upright for 30 minutes after PO intake Recommend Repeat Modified Barium Swallow: TBD Need for Skilled Speech Therapy Services: Yes Comment: -Train the patient and family in use of strategies to decrease risk for aspiration and reflux aspiration. -Ongoing assessment of diet tolerance of recommended textures. If poor diet tolerance of soft and bite size textures / thin liquids, would consider downgrade to puree / thin or full liquids due to esophageal dysphagia. -Train the patient in oropharyngeal exercise program to improve bolus control, airway closure, pharyngeal motility, and UES opening/duration (lingual resistance, [place], Effortful, CTAR, and Yawn stretch). Recommended Referrals: GI Consult (Once respiratory status is more stable, would recommend GI consult. [facility] discussed esophageal retention and slow emptying w/ Dr. Crowder.) Education Completed: 1. Described result of evaluation., 4. Family/caregivers understand evaluation & agree w/ goals & tx plan. and 7. Pt requires further education on strategies & risks. Status Active ST Patient: Active Contact Information [facility] Speech Therapy:: Sigrid Almaguer M.A. CCC-CARPENTERS? Speech-Language Pathologist?? [facility] [address] [place] [address]? [email or web address]?? [phone]
[2024-03-02] MEDS: APIXABAN 2.5 MG TABLET (WCH) PO ×2 (10:22→22:24)
[2024-03-02] MEDS: buPROPion (XL) 150 MG TABLET.XL PO (10:22)
[2024-03-02] MEDS: Metoprolol(XL)Succ 100 MG Tablet PO (10:22)
[2024-03-02] MEDS: Hydroxychloroquine 200 MG Tablet 400 MG PO (10:23)
[2024-03-02] MEDS: Mesalamine 1.2 GM Tablet 2.4 GM PO (10:23)
--- NOTE | 2024-03-02 10:56 | PCM.PN.INT ---
Assessment & Plan Assessment/Plan (1) Hypoxemia: PLAN: Plan RECOMMENDATIONS: 1. Supplemental oxygen to maintain saturations at or above 90%. 2. Continue empiric broad-spectrum antimicrobials and steroids. 3. Consider gentle diuresis as tolerated by hemodynamics and renal function. 4. Encourage incentive spirometer use and mobilize patient as tolerated. 5. Dietary advancement per speech therapy. IMPRESSIONS: 1. Acute hypoxemic respiratory failure Appears to be secondary to bilateral multifocal pneumonia. The patient has been initiated on appropriate broad-spectrum antimicrobial therapy. Given the severity of his underlying disease and hypoxemia, will plan to continue corticosteroids. In the interim, continue supplemental oxygen to maintain saturations at or above 90%. Recommend attempted gentle diuresis as tolerated by hemodynamics and renal function. 2. History of rheumatoid arthritis/chronic kidney disease/coronary artery disease/paroxysmal atrial fibrillation/flutter Complicates care, management, recovery and prognosis. Continue home medications as indicated. Encourage incentive spirometer use and mobilize patient as tolerated. CODE STATUS: DNR CCA without intubation This note was generated with [employer] dictation software. It may contain incorrect words, spelling, and punctuation that were not noted in checking the note before signing. Subjective Subjective The patient was seen and examined at the bedside this morning. Events from the last 24 hours have been reviewed. The patient is currently afebrile, hemodynamically stable and maintaining appropriate oxygen saturations on 10 L/min high flow nasal cannula. The patient is currently documented to be overall net +2.4 L for the hospitalization. White blood cell count is normal. The patient remains on bronchodilators, antimicrobials and steroids. I did speak with the patient and his this morning regarding his CODE STATUS as it is currently documented to be DNR CCA with intubation. They indicated that this was erroneous and that he would, in fact, not want to be intubated if his respiratory status worsens. Therefore, CODE STATUS has been updated to DNR CCA without intubation. Objective Data Objective Data The patient's most recent lab work, culture data and imaging studies have all been personally reviewed. Respiratory viral panel was negative. Strep and urine Legionella antigens were negative. Vital Signs: Vital Signs Temp Pulse Resp BP Pulse Ox O2 Del Method O2 Flow Rate 97.8 F 102 H 18 128/76 H 95 High Flow 13 03/02/24 10:00 03/02/24 10:22 03/02/24 10:00 03/02/24 10:00 03/02/24 10:00 03/02/24 10:00 03/02/24 10:00 Oxygen Flow Rate (L/min) 13 Oxygen Delivery Method High Flow Weight: 174 lb 2.643 oz Body Mass Index (BMI) 22.4 Intake & Output: Intake and Output for Last 24 Hours 02/29/24 03/01/24 03/02/24 23:59 23:59 23:59 Intake Total 1158 / 1158 1400 / 1400 50 / 50 Output Total 750 / 750 1000 / 1000 400 / 400 Balance 408 / 408 400 / 400 -350 / -350 Lab / Micro Data Attestation: I reviewed the patient's lab results. 03/02/24 06:54 03/02/24 06:54 Labs: Laboratory Results - last 24 hr 03/02/24 06:54: WBC 7.6, RBC 4.50 L, Hgb 13.4, Hct 41.9, MCV 93.1, MCH 29.8, MCHC 32.0, RDW Std Deviation 51.2 H, RDW Coeff of Dominick 14.7 H, Plt Count 481 H, MPV 11.4, Immature Gran % (Auto) 2.500 H, Neut % (Auto) 90.9 H, Lymph % (Auto) 5.1 L, [place] % (Auto) 1.2, Eos % (Auto) 0.0, Baso % (Auto) 0.3, Absolute Neuts (auto) 6.9, Absolute Lymphs (auto) 0.39 L, Nucleated RBC % 0, Sodium 138, Potassium 4.9, Chloride 111 H, Carbon Dioxide 20.0 L, Anion Gap 7, BUN 39 H, Creatinine 1.63 H, Estim Creat Clear Calc 35.68, Est GFR (MDRD) Af Amer 52 L, Est GFR (MDRD) Non-Af 43 L, BUN/Creatinine Ratio 23.9 H, Glucose 144 H, Calcium 8.6 Micro: Microbiology 02/28/24 01:10 Urine, Clean Catch Legionella Antigen - Final 02/28/24 01:10 Urine, Clean Catch Streptococcus pneumoniae Antigen (M - Final 02/27/24 01:10 Nasal Secretion MRSA (PCR) - Final 02/27/24 23:10 Mucosa - Nasopharyngeal Respiratory Panel (PCR) - Final Rhythm Strip Rhythm Strip: A-fib Rate: 140 Ectopy: None Physical Exam Const alert and no apparent distress Constitutional Narrative: Sitting in bedside recliner. is present at the bedside. General Appearance: cooperative HEENT normocephalic, head/scalp atraumatic and moist oral mucous membranes General Ear: hearing grossly impaired Eyes EOMs intact bilaterally and conjunctivae normal Neck supple General: trachea midline Chest inspection of chest normal Resp Auscultation: rales and diminished lung sounds Cardio S1 normal heart sound and S2 normal heart sound Rate: tachycardic GI normal to inspection, nondistended, normoactive bowel sounds Extremity no clubbing, cyanosis or edema Skin no rashes or lesions noted Neuro CN's II-XII intact bilaterally, moves all extremities and no focal motor deficits Psych cooperative and affect normal Charges/Coding Visit Charges Inpatient E&M: 02955 Subs Hosp L2
[2024-03-02] MEDS: Furosemide 40 MG/4 ML Vial IV (12:13)
--- NOTE | 2024-03-02 18:41 | PN.HOSP_ITS ---
Reason for Visit Reason for Visit: Diagnoses Unspecified atrial fibrillation (02/27/24) Pneumonia due to Hemophilus influenzae (02/27/24) Acute kidney failure, unspecified (02/27/24) Hypoxemia (02/27/24) Other specified abnormal findings of blood chemistry (02/27/24) Other specified health status (02/27/24) Subjective Subjective Patient was seen and examined today, his is in the room at the time my examination. He is still requiring high flow oxygen. I have elected to give the patient a dose of Lasix this evening, pulmonary medicine gave the patient a dose this morning. Objective Data Objective Data Vital Signs: Vital Signs Temp Pulse Resp BP Pulse Ox O2 Del Method O2 Flow Rate 97.8 F 77 18 112/89 H 93 High Flow 10 03/02/24 16:00 03/02/24 16:00 03/02/24 16:00 03/02/24 16:00 03/02/24 18:15 03/02/24 18:15 03/02/24 18:15 Oxygen Flow Rate (L/min) 10 Oxygen Delivery Method High Flow Weight: 79 kg Body Mass Index (BMI) 22.4 Intake & Output: Intake and Output for Last 24 Hours 02/29/24 03/01/24 03/02/24 23:59 23:59 23:59 Intake Total 1158 / 1158 1400 / 1400 160 / 160 Output Total 750 / 750 1000 / 1000 800 / 800 Balance 408 / 408 400 / 400 -640 / -640 Lab / Micro Data 03/03/24 06:33 03/03/24 06:33 Labs: Laboratory Results - last 24 hr 03/02/24 06:54: WBC 7.6, RBC 4.50 L, Hgb 13.4, Hct 41.9, MCV 93.1, MCH 29.8, MCHC 32.0, RDW Std Deviation 51.2 H, RDW Coeff of Dominick 14.7 H, Plt Count 481 H, MPV 11.4, Immature Gran % (Auto) 2.500 H, Neut % (Auto) 90.9 H, Lymph % (Auto) 5.1 L, [place] % (Auto) 1.2, Eos % (Auto) 0.0, Baso % (Auto) 0.3, Absolute Neuts (auto) 6.9, Absolute Lymphs (auto) 0.39 L, Nucleated RBC % 0, Sodium 138, Potassium 4.9, Chloride 111 H, Carbon Dioxide 20.0 L, Anion Gap 7, BUN 39 H, C reatinine 1.63 H, Estim Creat Clear Calc 35.68, Est GFR (MDRD) Af Amer 52 L, Est GFR (MDRD) Non-Af 43 L, BUN/Creatinine Ratio 23.9 H, Glucose 144 H, Calcium 8.6 Micro: Microbiology 02/28/24 01:10 Urine, Clean Catch Legionella Antigen - Final 02/28/24 01:10 Urine, Clean Catch Streptococcus pneumoniae Antigen (M - Final 02/27/24 01:10 Nasal Secretion MRSA (PCR) - Final 02/27/24 23:10 Mucosa - Nasopharyngeal Respiratory Panel (PCR) - Final Rhythm Strip Rhythm Strip: A-fib Rate: 140 Ectopy: None Physical Exam Narrative alert, oriented x3, no apparent distress and average body habitus General Appearance: cooperative, well kempt and well developed Orientation / Consciousness: awake, oriented to person, oriented to place and oriented to time HEENT normocephalic, head/scalp atraumatic and moist oral mucous membranes Eyes PERRL, EOMs intact bilaterally and conjunctivae normal Neck supple, no JVD and thyroid normal General: trachea midline Resp normal respiratory effort, no retractions, no use of accessory muscles and clear to auscultation bilaterally Auscultation: Negative for rales, rhonchi or wheezes Cardio regular rate, regular rhythm, S1 normal heart sound, S2 normal heart sound, no murmurs, no rub and no gallops GI normal to inspection, nondistended, normoactive bowel sounds, soft to palpation, non-tender and non-distended Extremity no clubbing, cyanosis or edema Skin no rashes or lesions noted General Skin Exam: no breakdown Neuro oriented x3, CN's II-XII intact bilaterally, no focal motor deficits and no sensory deficits noted Sensorium / Orientation: awake and alert Speech: speech normal Psych affect normal Assessment & Plan Assessment/Plan (1) Hypoxemia: PLAN: Plan 1. Acute hypoxic respiratory failure secondary to bilateral multifocal pneumonia-patient remains on broad-spectrum antibiotic therapy, he is being seen by pulmonary medicine, pulse ox will be monitored and oxygen will be weaned if possible, patient was placed on corticosteroids by pulmonary medicine. In addition patient was given diuretics today in an attempt to diurese the patient and see if this would improve his oxygenation, BMP will be repeated tomorrow #2 paroxysmal atrial fibrillation-patient is on rate limiting medications and anticoagulants he will be monitored on telemetry #3 essential hypertension-patient is on metoprolol, his other medications including lisinopril and spironolactone for his blood pressure will be held due to his acute kidney injury #4 acute kidney injury-labs will be monitored, BMP will be repeated tomorrow Total clinical time spent by myself addressing the patient's medical issues, reviewing all of his data, and collaborating with patient's care team: 35 minutes Charges/Coding Visit Charges Inpatient E&M: 84729 Subs Hosp L2
[2024-03-02] MEDS: Furosemide 20 MG/2 ML VIAL IV (18:52)
[2024-03-03] VITALS (10 sets, daily range): BP systolic 100–128; BP diastolic 70–85; PULSE 87–124; RESP 16–20; TEMP 36.6–36.7; O2SAT 93–97; BMI 21.5
[2024-03-03] MEDS: Metoprolol Tartrate 5 MG/5 ML Vial IV (03:06)
[2024-03-03] MEDS: Piperacil/Tazobactam 3.375 GM in 0.9% Normal Saline (50mL MB+) 50 ML IV ×3 (05:28→21:50)
[2024-03-03] MEDS: 0.9% Saline Lock 10 ML Syringe IV ×2 (05:29→19:02)
[2024-03-03 07:17] LABS: Absolute Lymphocyte Count 0.54 X10^3/uL (0.83-4.51); Basophil# 0.03 X10^3/uL; Basophil% 0.2 % (0-1); Hemoglobin 13.2 g/dL (13.0-16.5); Lymphocyte # 0.54 X10^3/ul (0.83-4.51); Mean Corpuscular Hgb 30.5 pg (27.0-32.0); Mean Corpuscular Volume 92.4 fL (80-94); Mean Platelet Vol. 11.6 fl (6.2-12.0); Monocyte# 0.32 X10^3/uL; Monocyte% 1.8 % (0-10); NRBC Flagged by Analyzer 0 % (0-5); Neutrophil # 17.04 X10^3/uL (2.7-7.7); Neutrophil % 93.7 % (47-70); POSITIVE DIFFERENTIAL YES; Platelet Count 503 K/mm3 (150-450); RBC Distribution Width CV 14.8 % (11.6-14.6); RBC Distribution Width SD 50.6 fl (35.1-43.9); Red Blood Count 4.33 M/mm3 (4.6-6.2); White Blood Count 18.2 K/mm3 (4.4-11.0)
[2024-03-03] MEDS: Budesonide Respules 0.5 MG/2 ML AMPUL.NEB. INHALATION ×2 (07:18→19:56)
[2024-03-03] MEDS: Albuterol 2.5 MG/3 ML VIAL.NEB. INHALATION ×2 (07:18→19:56)
[2024-03-03 07:42] LABS: Anion Gap 9 (5-15); BUN 60 mg/dL (7-18); BUN/Creat Ratio 28.4 RATIO (10-20); Calcium,Total 8.7 mg/dL (8.5-10.1); Chloride 114 mmol/L (98-107); Creatinine, Serum 2.11 mg/dL (0.70-1.30); EST Glomerular Filtration Rate 32 mL/min (>60); Est Glom Filt Rate - Afr Amer 38 mL/min (>60); Estimated Creatinine Clearance 26.58 ml/min; Glucose 146 mg/dL (74-106); Potassium 3.8 mmol/L (3.5-5.1); Sodium Level 141 mmol/L (136-145)
[2024-03-03] MEDS: buPROPion (XL) 150 MG TABLET.XL PO (10:17)
[2024-03-03] MEDS: Metoprolol(XL)Succ 100 MG Tablet PO (10:17)
[2024-03-03] MEDS: Hydroxychloroquine 200 MG Tablet 400 MG PO (10:17)
[2024-03-03] MEDS: APIXABAN 2.5 MG TABLET (WCH) PO ×2 (10:17→21:50)
[2024-03-03] MEDS: Mesalamine 1.2 GM Tablet 2.4 GM PO (10:17)
--- NOTE | 2024-03-03 11:59 | EKG12_ITS ---
Test Reason : RHYTHM CHANGE Blood Pressure : */* mmHG Vent. Rate : 99 BPM Atrial Rate : * BPM P-R Int : * ms QRS Dur : 136 ms QT Int : 372 ms P-R-T Axes : * -12 140 degrees QTcB Int : 477 ms Atrial fibrillation Non-specific intra-ventricular conduction block T wave abnormality, consider lateral ischemia Abnormal ECG When compared with ECG of 27-Feb-2024 16:33, Criteria for Septal infarct are no longer Present Nonspecific T wave abnormality now evident in Anterior leads Confirmed by RUY CORONA, CARLOS ([id number]), newspaper editor NARENDRA HYMAN ([id number]) on 03/06/2024 5:58:01 AM Referred By: Confirmed By: CARLOS REDMOND MD
--- NOTE | 2024-03-03 18:19 | PN.HOSP_ITS ---
Reason for Visit Reason for Visit: Diagnoses Unspecified atrial fibrillation (02/27/24) Pneumonia due to Hemophilus influenzae (02/27/24) Acute kidney failure, unspecified (02/27/24) Hypoxemia (02/27/24) Other specified abnormal findings of blood chemistry (02/27/24) Other specified health status (02/27/24) Subjective Subjective Patient was seen and examined today, his oxygen flow rate has improved today, he is currently at 7 L. I had given the patient Lasix yesterday, his creatinine has risen and I have decided not to challenge the patient with any more Lasix. BMP will be rechecked tomorrow. I talked to his who is in the room at the time my examination. Objective Data Objective Data Vital Signs: Vital Signs Temp Pulse Resp BP Pulse Ox O2 Del Method O2 Flow Rate 97.8 F 87 18 100/83 H 95 High Flow 7 03/03/24 17:00 03/03/24 17:00 03/03/24 17:00 03/03/24 17:00 03/03/24 17:00 03/03/24 17:00 03/03/24 17:00 Oxygen Flow Rate (L/min) 7 Oxygen Delivery Method High Flow Weight: 76.2 kg Body Mass Index (BMI) 21.5 Intake & Output: Intake and Output for Last 24 Hours 03/01/24 03/02/24 03/03/24 23:59 23:59 23:59 Intake Total 1400 / 1400 210 / 450 820.00 / 820.00 Output Total 1000 / 1000 800 / 1300 850 / 850 Balance 400 / 400 -590 / -850 -30.00 / -30.00 Lab / Micro Data 03/03/24 06:33 03/03/24 06:33 Labs: Laboratory Results - last 24 hr 03/03/24 06:33: WBC 18.2 H, RBC 4.33 L, Hgb 13.2, Hct 40.0, MCV 92.4, MCH 30.5, MCHC 33.0, RDW Std Deviation 50.6 H, RDW Coeff of Dominick 14.8 H, Plt Count 503 H, MPV 11.6, Immature Gran % (Auto) 1.300 H, Neut % (Auto) 93.7 H, Lymph % (Auto) 3.0 L, Castro % (Auto) 1.8, Eos % (Auto) 0.0, Baso % (Auto) 0.2, Absolute Neuts (auto) 17.0 H, Absolute Lymphs (auto) 0.54 L, Nucleated RBC % 0, Sodium 141, Potassium 3.8, Chloride 114 H, Carbon Dioxide 18.0 L, Anion Gap 9, BUN 60 H, C reatinine 2.11 H, Estim Creat Clear Calc 26.58, Est GFR (MDRD) Af Amer 38 L, Est GFR (MDRD) Non-Af 32 L, BUN/Creatinine Ratio 28.4 H, Glucose 146 H, Calcium 8.7 Micro: Microbiology 02/28/24 01:10 Urine, Clean Catch Legionella Antigen - Final 02/28/24 01:10 Urine, Clean Catch Streptococcus pneumoniae Antigen (M - Final 02/27/24 01:10 Nasal Secretion MRSA (PCR) - Final 02/27/24 23:10 Mucosa - Nasopharyngeal Respiratory Panel (PCR) - Final Rhythm Strip Rhythm Strip: A-fib Rate: 140 Ectopy: None Physical Exam Narrative alert, oriented x3, no apparent distress and average body habitus General Appearance: cooperative, well kempt and well developed Orientation / Consciousness: awake, oriented to person, oriented to place and oriented to time HEENT normocephalic, head/scalp atraumatic and moist oral mucous membranes Eyes PERRL, EOMs intact bilaterally and conjunctivae normal Neck supple, no JVD and thyroid normal General: trachea midline Resp normal respiratory effort, no retractions, no use of accessory muscles and clear to auscultation bilaterally Auscultation: Negative for rales, rhonchi or wheezes Cardio regular rate, regular rhythm, S1 normal heart sound, S2 normal heart sound, no murmurs, no rub and no gallops GI normal to inspection, nondistended, normoactive bowel sounds, soft to palpation, non-tender and non-distended Extremity no clubbing, cyanosis or edema Skin no rashes or lesions noted General Skin Exam: no breakdown Neuro oriented x3, CN's II-XII intact bilaterally, no focal motor deficits and no sensory deficits noted Sensorium / Orientation: awake and alert Speech: speech normal Psych affect normal Assessment & Plan Assessment/Plan (1) Acute hypoxic respiratory failure: (2) Hypoxemia: PLAN: Plan 1. Acute hypoxic respiratory failure secondary to bilateral multifocal pneumonia-patient remains on broad-spectrum antibiotic therapy, he is being seen by pulmonary medicine, pulse ox will be monitored and oxygen will be weaned if possible, patient was placed on corticosteroids by pulmonary medicine. Patient's oxygen requirement has improved since he was given Lasix yesterday, due to his elevated creatinine however, I have decided not to give him any more Lasix. #2 paroxysmal atrial fibrillation-patient is on rate limiting medications and anticoagulants he will be monitored on telemetry #3 essential hypertension-patient is on metoprolol, his other medications including lisinopril and spironolactone for his blood pressure will be held due to his acute kidney injury #4 acute kidney injury-labs will be monitored, BMP will be repeated tomorrow Total clinical time spent by myself addressing the patient's medical issues, reviewing all of his data, and collaborating with patient's care team: 35 minutes Charges/Coding Visit Charges Inpatient E&M: 94425 Subs Hosp L2
--- NOTE | 2024-03-03 22:51 | PN.CC_ITS ---
Objective Data Objective Data Vital Signs: Vital Signs Last response 3 Temperature 36.7 C 03/03/24 18:39 Temperature Source Oral 03/03/24 18:39 Pulse Rate 92 03/03/24 19:57 Pulse Strength Normal (2+) 03/03/24 20:35 Respiratory Rate 20 H 03/03/24 19:57 Respiratory Effort Normal, Short of Breath 03/03/24 19:45 Respiratory Depth Normal 03/03/24 19:45 Respiratory Pattern Tachypnea 03/03/24 19:57 Blood Pressure 113/84 H 03/03/24 18:39 Blood Pressure Mean 93 03/03/24 18:39 Blood Pressure Source Monitor 03/03/24 18:39 Blood Pressure Position Semi-Fowlers 03/03/24 18:39 Blood Pressure Location Right Arm 03/03/24 18:39 Pulse Ox 96 03/03/24 19:57 Oxygen Delivery Method High Flow 03/03/24 19:57 Oxygen Flow Rate (L/min) 7 03/03/24 19:57 I&O: I&O Last 24 Hours 3 03/02/24 03/03/24 03/03/24 23:59 11:59 23:59 Intake Total 110 / 450 577.29 / 990.00 412.71 / 990.00 Output Total 400 / 1300 850 / 850 Balance -290 / -850 -272.71 / 140.00 412.71 / 140.00 I&O: Total Stay 3 02/27/24 16:23 thru 03/03/24 19:04 Intake Total 6705.25 Output Total 4400 Balance 2305.25 Current Meds Ordered / Administered: Current meds ordered / Administered 3 Generic Name Dose Route Start Last Admin Trade Name Freq PRN Reason Stop Dose Admin Acetaminophen 650 mg 02/27/24 18:59 Acetaminophen 325 Mg Tablet PO Q4H PRN PRN Fever, pain 1-11/30 Al Hydroxide/Mg Hydroxide 30 ml 02/27/24 18:59 Mag Hydrox/Al Hydrox/Simeth 30 Ml Udc PO Q6H PRN PRN Gastric Burning Albuterol Sulfate 2.5 mg 02/27/24 18:59 03/03/24 19:56 Albuterol 2.5 Mg/3 Ml Vial.Neb. INHALATION 2.5 mg Q2H PRN PRN Administration Dyspnea, wheezing Apixaban 2.5 mg 02/27/24 22:00 03/03/24 21:50 Apixaban 2.5 Mg Tablet ([facility]) PO 2.5 mg BID CARMEN Administration Budesonide 0.5 mg 02/27/24 18:59 03/03/24 19:56 Budesonide Respules 0.5 Mg/2 Ml Ampul.Neb. INHALATION 0.5 mg BID.RT CARMEN Administration Bupropion HCl 150 mg 02/28/24 10:00 03/03/24 10:17 Bupropion (Xl) 150 Mg Tablet.Xl PO 150 mg DAILY CARMEN Administration Guaifenesin 20 ml 02/27/24 18:59 02/28/24 21:16 Guaifenesin 10 Ml Udc (200mg/10ml) PO 20 ml Q4H PRN PRN Administration COUGH Hydroxychloroquine Sulfate 400 mg 02/28/24 08:00 03/03/24 10:17 Hydroxychloroquine 200 Mg Tablet PO 400 mg [id number]@0800 CARMEN Administration Hydroxychloroquine Sulfate 200 mg 03/04/24 08:00 Hydroxychloroquine 200 Mg Tablet PO Meza@0800 CARMEN Sodium Chloride 100 mls @ 15 mls/hr 02/27/24 19:01 IV .Q6H40M PRN Saline Flush Sodium Chloride 100 mls @ 15 mls/hr 02/27/24 19:01 IV .Q6H40M PRN Additional IVPB Infusion Diltiazem HCl 125 mg/ Dextrose 125 mls @ 5 mls/hr 02/28/24 04:40 03/03/24 09:19 IV Not Given .Q25H CARMEN Protocol 5 MG/HR Piperacillin Sod/Tazobactam 50 mls @ 12.5 mls/hr 02/29/24 14:00 03/03/24 21:50 Sod 3.375 gm/ Sodium Chloride IV 12.5 mls/hr Q8 CARMEN Administration Melatonin 3 mg 02/27/24 18:59 Melatonin 3 Mg Tablet PO QHS PRN PRN INSOMNIA Mesalamine 2.4 gm 02/28/24 10:00 03/03/24 10:17 Mesalamine 1.2 Gm Tablet PO 2.4 gm DAILY CARMEN Administration Methylprednisolone 40 mg 03/01/24 18:00 03/03/24 19:02 Methylprednisolone 40 Mg/Ml Vial IV 40 mg Q6 CARMEN Administration Metoprolol Succinate 100 mg 03/02/24 10:00 03/03/24 10:17 Metoprolol(Xl)Succ 100 Mg Tablet PO 100 mg DAILY CARMEN Administration Protocol Metoprolol Tartrate 5 mg 03/01/24 22:03 03/03/24 03:06 Metoprolol Tartrate 5 Mg/5 Ml Vial IV 5 mg Q6H PRN PRN Administration Tachycardia Protocol Ondansetron HCl 4 mg 02/27/24 18:59 Ondansetron 4 Mg/2 Ml Vial IV Q8H PRN PRN NAUSEA/VOMITING Prochlorperazine Edisylate 5 mg 02/27/24 18:59 Prochlorperazine 10 Mg/2 Ml Vial IV Q4H PRN PRN Breakthrough Nausea/Vomiting Senna/Docusate Sodium 2 tablet 02/27/24 18:59 Senna/Docusate Sodium 1 Tablet PO BID PRN PRN Constipation Sodium Chloride 10 - 40 ml 02/27/24 19:01 03/03/24 19:02 0.9% Saline Lock 10 Ml Syringe IV 10 ml UD PRN Administration SALINE FLUSH Lab / Micro Data 03/03/24 06:33 03/03/24 06:33 Labs: Laboratory Results - last 24 hr 03/03/24 06:33: WBC 18.2 H, RBC 4.33 L, Hgb 13.2, Hct 40.0, MCV 92.4, MCH 30.5, MCHC 33.0, RDW Std Deviation 50.6 H, RDW Coeff of Dominick 14.8 H, Plt Count 503 H, MPV 11.6, Immature Gran % (Auto) 1.300 H, Neut % (Auto) 93.7 H, Lymph % (Auto) 3.0 L, [place] % (Auto) 1.8, Eos % (Auto) 0.0, Baso % (Auto) 0.2, Absolute Neuts (auto) 17.0 H, Absolute Lymphs (auto) 0.54 L, Nucleated RBC % 0, Sodium 141, Potassium 3.8, Chloride 114 H, Carbon Dioxide 18.0 L, Anion Gap 9, BUN 60 H, C reatinine 2.11 H, Estim Creat Clear Calc 26.58, Est GFR (MDRD) Af Amer 38 L, Est GFR (MDRD) Non-Af 32 L, BUN/Creatinine Ratio 28.4 H, Glucose 146 H, Calcium 8.7 Rhythm Strip Rhythm Strip: A-fib Rate: 140 Ectopy: None Assessment and Plan . Assessment and plan: Patient seen and examined Chart and data reviewed He is feeling better. O2 reduced to 7 LPM N/C He appears comfortable at rest Recent CT reviewed EXAM GEN NAD VS as above HEENT N/C NECK veins flat COR irreg CHEST decreased dependently ABD soft EXT minimal edema SKIN w/d SCOOTER NF ASSESSMENT 1. Acute respiratory failure requiring high-flow supplemental O2 2. Suspected infectious PNA 3. RA / CKD / PAF / ASCVD 4. DNR / DNI TREATMENT PLAN -supplemental O2 -empiric AVX and corticosteroids -NOAC The entirety of this encounter was done via Telemedicine
[2024-03-04] VITALS (16 sets, daily range): BP systolic 108–138; BP diastolic 78–96; PULSE 79–107; RESP 16–20; TEMP 36.3–36.6; O2SAT 87–98; BMI 21.6
[2024-03-04] MEDS: 0.9% Saline Lock 10 ML Syringe IV ×4 (00:18→23:26)
[2024-03-04] MEDS: Piperacil/Tazobactam 3.375 GM in 0.9% Normal Saline (50mL MB+) 50 ML IV ×3 (05:52→21:06)
[2024-03-04] MEDS: Budesonide Respules 0.5 MG/2 ML AMPUL.NEB. INHALATION ×2 (07:11→19:39)
[2024-03-04] MEDS: Albuterol 2.5 MG/3 ML VIAL.NEB. INHALATION (07:11)
[2024-03-04] MEDS: APIXABAN 2.5 MG TABLET (WCH) PO ×2 (10:03→21:06)
[2024-03-04] MEDS: Mesalamine 1.2 GM Tablet 2.4 GM PO (10:03)
[2024-03-04] MEDS: Hydroxychloroquine 200 MG Tablet PO (10:03)
[2024-03-04] MEDS: Metoprolol(XL)Succ 100 MG Tablet PO (10:04)
[2024-03-04] MEDS: buPROPion (XL) 150 MG TABLET.XL PO (10:04)
--- NOTE | 2024-03-04 12:03 | PCM.PN.HOSP ---
Reason for Visit Reason for Visit: Diagnoses Unspecified atrial fibrillation (02/27/24) Pneumonia due to Hemophilus influenzae (02/27/24) Acute respiratory failure with hypoxia (02/27/24) Acute kidney failure, unspecified (02/27/24) Hypoxemia (02/27/24) Other specified abnormal findings of blood chemistry (02/27/24) Other specified health status (02/27/24) Subjective Subjective Patient was seen and examined today, he is currently on 6 L of nasal cannula oxygen, I talked briefly with his about his care. Objective Data Objective Data Vital Signs: Vital Signs Temp Pulse Resp BP Pulse Ox O2 Del Method O2 Flow Rate 97.8 F 98 18 113/90 H 96 High Flow 6 03/04/24 11:57 03/04/24 11:57 03/04/24 11:57 03/04/24 11:57 03/04/24 11:57 03/04/24 11:57 03/04/24 11:57 Oxygen Flow Rate (L/min) 6 Oxygen Delivery Method High Flow Weight: 76.4 kg Body Mass Index (BMI) 21.6 Intake & Output: Intake and Output for Last 24 Hours 03/02/24 03/03/24 03/04/24 23:59 23:59 23:59 Intake Total 210 / 450 990.00 / 990.00 580 / 580 Output Total 800 / 1300 850 / 850 350 / 350 Balance -590 / -850 140.00 / 140.00 230 / 230 Lab / Micro Data 03/03/24 06:33 03/03/24 06:33 Micro: Microbiology 02/28/24 01:10 Urine, Clean Catch Legionella Antigen - Final 02/28/24 01:10 Urine, Clean Catch Streptococcus pneumoniae Antigen (M - Final 02/27/24 01:10 Nasal Secretion MRSA (PCR) - Final 02/27/24 23:10 Mucosa - Nasopharyngeal Respiratory Panel (PCR) - Final Rhythm Strip Rhythm Strip: A-fib Rate: 140 Ectopy: None Physical Exam Narrative alert, oriented x3, no apparent distress and average body habitus General Appearance: cooperative, well kempt and well developed Orientation / Consciousness: awake, oriented to person, oriented to place and oriented to time HEENT normocephalic, head/scalp atraumatic and moist oral mucous membranes Eyes PERRL, EOMs intact bilaterally and conjunctivae normal Neck supple, no JVD and thyroid normal General: trachea midline Resp normal respiratory effort, no retractions, no use of accessory muscles and clear to auscultation bilaterally Auscultation: Negative for rales, rhonchi or wheezes Cardio regular rate, regular rhythm, S1 normal heart sound, S2 normal heart sound, no murmurs, no rub and no gallops GI normal to inspection, nondistended, normoactive bowel sounds, soft to palpation, non-tender and non-distended Extremity no clubbing, cyanosis or edema Skin no rashes or lesions noted General Skin Exam: no breakdown Neuro oriented x3, CN's II-XII intact bilaterally, no focal motor deficits and no sensory deficits noted Sensorium / Orientation: awake and alert Speech: speech normal Psych affect normal Assessment & Plan Assessment/Plan (1) Acute hypoxic respiratory failure: (2) Hypoxemia: PLAN: Plan 1. Acute hypoxic respiratory failure secondary to bilateral multifocal pneumonia-patient remains on broad-spectrum antibiotic therapy, he is being seen by pulmonary medicine, pulse ox will be monitored and oxygen will be weaned if possible, patient was placed on corticosteroids by pulmonary medicine. Patient's oxygen requirement has improved, he is now at 6 L via nasal cannula. #2 paroxysmal atrial fibrillation-patient is on rate limiting medications and anticoagulants he will be monitored on telemetry #3 essential hypertension-patient is on metoprolol, his other medications including lisinopril and spironolactone for his blood pressure will be held due to his acute kidney injury #4 acute kidney injury-labs will be monitored, BMP will be repeated tomorrow Total clinical time spent by myself addressing the patient's medical issues, reviewing all of his data, and collaborating with patient's care team: 35 minutes Charges/Coding Visit Charges Inpatient E&M: 18242 Subs Hosp L2
--- NOTE | 2024-03-04 20:29 | PN.CC_ITS ---
Objective Data Objective Data Vital Signs: Vital Signs Last response 3 Temperature 36.6 C 03/04/24 17:49 Temperature Source Oral 03/04/24 17:49 Pulse Rate 94 03/04/24 17:49 Pulse Strength Normal (2+) 03/04/24 10:00 Respiratory Rate 18 03/04/24 17:49 Respiratory Effort Normal, Non-Labored 03/04/24 14:00 Respiratory Depth Normal 03/04/24 14:00 Respiratory Pattern Normal 03/04/24 14:00 Blood Pressure 109/86 H 03/04/24 17:49 Blood Pressure Mean 93 03/04/24 17:49 Blood Pressure Source Monitor 03/04/24 17:49 Blood Pressure Position Semi-Fowlers 03/04/24 17:49 Blood Pressure Location Right Arm 03/04/24 17:49 Pulse Ox 98 03/04/24 17:49 Oxygen Delivery Method Nasal Cannula 03/04/24 17:49 Oxygen Flow Rate (L/min) 5 03/04/24 17:49 I&O: I&O Last 24 Hours 3 03/03/24 03/04/24 03/04/24 23:59 11:59 23:59 Intake Total 412.71 / 990.00 580 / 750 170 / 750 Output Total 350 / 350 Balance 412.71 / 140.00 230 / 400 170 / 400 I&O: Total Stay 3 02/27/24 16:23 thru 03/04/24 18:41 Intake Total 7455.25 Output Total 4750 Balance 2705.25 Current Meds Ordered / Administered: Current meds ordered / Administered 3 Generic Name Dose Route Start Last Admin Trade Name Otisq PRN Reason Stop Dose Admin Acetaminophen 650 mg 02/27/24 18:59 Acetaminophen 325 Mg Tablet PO Q4H PRN PRN Fever, pain 1-10 Al Hydroxide/Mg Hydroxide 30 ml 02/27/24 18:59 Mag Hydrox/Al Hydrox/Simeth 30 Ml Udc PO Q6H PRN PRN Gastric Burning Albuterol Sulfate 2.5 mg 02/27/24 18:59 03/04/24 07:11 Albuterol 2.5 Mg/3 Ml Vial.Neb. INHALATION 2.5 mg Q2H PRN PRN Administration Dyspnea, wheezing Apixaban 2.5 mg 02/27/24 22:00 03/04/24 10:03 Apixaban 2.5 Mg Tablet (h) PO 2.5 mg BID CARMEN Administration Budesonide 0.5 mg 02/27/24 18:59 03/04/24 19:39 Budesonide Respules 0.5 Mg/2 Ml Ampul.Neb. INHALATION 0.5 mg BID.RT CARMEN Administration Bupropion HCl 150 mg 02/28/24 10:00 03/04/24 10:04 Bupropion (Xl) 150 Mg Tablet.Xl PO 150 mg DAILY CARMEN Administration Guaifenesin 20 ml 02/27/24 18:59 02/28/24 21:16 Guaifenesin 10 Ml Udc (200mg/10ml) PO 20 ml Q4H PRN PRN Administration COUGH Hydroxychloroquine Sulfate 400 mg 02/28/24 08:00 03/03/24 10:17 Hydroxychloroquine 200 Mg Tablet PO 400 mg [email or web address]@0800 CARMEN Administration Hydroxychloroquine Sulfate 200 mg 03/04/24 08:00 03/04/24 10:03 Hydroxychloroquine 200 Mg Tablet PO 200 mg Meza@0800 CARMEN Administration Sodium Chloride 100 mls @ 15 mls/hr 02/27/24 19:01 IV .Q6H40M PRN Saline Flush Sodium Chloride 100 mls @ 15 mls/hr 02/27/24 19:01 IV .Q6H40M PRN Additional IVPB Infusion Piperacillin Sod/Tazobactam 50 mls @ 12.5 mls/hr 02/29/24 14:00 03/04/24 18:41 Sod 3.375 gm/ Sodium Chloride IV Infused Q8 CARMEN Infusion Melatonin 3 mg 02/27/24 18:59 Melatonin 3 Mg Tablet PO QHS PRN PRN INSOMNIA Mesalamine 2.4 gm 02/28/24 10:00 03/04/24 10:03 Mesalamine 1.2 Gm Tablet PO 2.4 gm DAILY CARMEN Administration Methylprednisolone 40 mg 03/01/24 18:00 03/04/24 17:37 Methylprednisolone 40 Mg/Ml Vial IV 40 mg Q6 CARMEN Administration Metoprolol Succinate 100 mg 03/02/24 10:00 03/04/24 10:04 Metoprolol(Xl)Succ 100 Mg Tablet PO 100 mg DAILY CARMEN Administration Protocol Metoprolol Tartrate 5 mg 03/01/24 22:03 03/03/24 03:06 Metoprolol Tartrate 5 Mg/5 Ml Vial IV 5 mg Q6H PRN PRN Administration Tachycardia Protocol Ondansetron HCl 4 mg 02/27/24 18:59 Ondansetron 4 Mg/2 Ml Vial IV Q8H PRN PRN NAUSEA/VOMITING Prochlorperazine Edisylate 5 mg 02/27/24 18:59 Prochlorperazine 10 Mg/2 Ml Vial IV Q4H PRN PRN Breakthrough Nausea/Vomiting Senna/Docusate Sodium 2 tablet 02/27/24 18:59 Senna/Docusate Sodium 1 Tablet PO BID PRN PRN Constipation Sodium Chloride 10 - 40 ml 02/27/24 19:01 03/04/24 11:56 0.9% Saline Lock 10 Ml Syringe IV 10 ml UD PRN Administration SALINE FLUSH Lab / Micro Data 03/03/24 06:33 03/03/24 06:33 Rhythm Strip Rhythm Strip: A-fib Rate: 140 Ectopy: None Assessment and Plan . Assessment and plan: Patient seen and examined Chart and data reviewed He is feeling better. O2 reduced to 5 LPM N/C He appears comfortable at rest Recent CT reviewed EXAM GEN NAD VS as above HEENT N/C NECK veins flat COR irreg CHEST decreased dependently ABD soft EXT minimal edema SKIN w/d SCOOTER NF ASSESSMENT 1. Acute respiratory failure requiring high-flow supplemental O2 2. Suspected infectious PNA v. Organizing PNA 3. RA / CKD / PAF / ASCVD 4. DNR / DNI TREATMENT PLAN -supplemental O2 -empiric AVX and corticosteroids - continue as is for now -NOAC -mobilize w/ PT The entirety of this encounter was done via Telemedicine
[2024-03-05] VITALS (10 sets, daily range): BP systolic 122–131; BP diastolic 86–95; PULSE 88–102; RESP 16–27; TEMP 36.2–37.1; O2SAT 79–97; BMI 21.1
[2024-03-05] MEDS: Nystatin Powder 15gm Bottle 1 APPLIC TOPICAL ×3 (06:52→20:48)
[2024-03-05] MEDS: Piperacil/Tazobactam 3.375 GM in 0.9% Normal Saline (50mL MB+) 50 ML IV ×3 (06:53→20:51)
[2024-03-05 06:54] LABS: Anion Gap 7 (5-15); BUN 63 mg/dL (7-18); BUN/Creat Ratio 38.2 RATIO (10-20); Calcium,Total 8.7 mg/dL (8.5-10.1); Chloride 118 mmol/L (98-107); Creatinine, Serum 1.65 mg/dL (0.70-1.30); EST Glomerular Filtration Rate 42 mL/min (>60); Est Glom Filt Rate - Afr Amer 51 mL/min (>60); Estimated Creatinine Clearance 33.33 ml/min; Glucose 121 mg/dL (74-106); Potassium 3.5 mmol/L (3.5-5.1); Sodium Level 144 mmol/L (136-145)
[2024-03-05] MEDS: Budesonide Respules 0.5 MG/2 ML AMPUL.NEB. INHALATION ×2 (07:13→19:20)
[2024-03-05] MEDS: Mesalamine 1.2 GM Tablet 2.4 GM PO (08:53)
[2024-03-05] MEDS: Metoprolol(XL)Succ 100 MG Tablet PO (08:53)
[2024-03-05] MEDS: buPROPion (XL) 150 MG TABLET.XL PO (08:53)
[2024-03-05] MEDS: APIXABAN 2.5 MG TABLET (WCH) PO ×2 (08:53→20:49)
[2024-03-05] MEDS: Menthol/Lanolin/Calamine/Znox 113 GM Tube 1 APPLIC TOPICAL ×2 (08:54→20:49)
[2024-03-05] MEDS: Hydroxychloroquine 200 MG Tablet 400 MG PO (08:54)
--- NOTE | 2024-03-05 19:35 | PN.HOSP_ITS ---
Reason for Visit Reason for Visit: Diagnoses Unspecified atrial fibrillation (02/27/24) Pneumonia due to Hemophilus influenzae (02/27/24) Acute respiratory failure with hypoxia (02/27/24) Acute kidney failure, unspecified (02/27/24) Hypoxemia (02/27/24) Other specified abnormal findings of blood chemistry (02/27/24) Other specified health status (02/27/24) Subjective Subjective Patient was seen and examined today, he was on 2 L of oxygen at rest today, he required 4 L of oxygen with ambulation. Talk to his who is in the room at the time my examination today Objective Data Objective Data Vital Signs: Vital Signs Temp Pulse Resp BP Pulse Ox O2 Del Method O2 Flow Rate 98.7 F 88 18 122/86 H 96 Nasal Cannula 2 03/05/24 15:00 03/05/24 15:00 03/05/24 15:00 03/05/24 15:00 03/05/24 15:00 03/05/24 15:00 03/05/24 15:00 Oxygen Flow Rate (L/min) 2 Oxygen Delivery Method Nasal Cannula Weight: 74.7 kg Body Mass Index (BMI) 21.1 Intake & Output: Intake and Output for Last 24 Hours 03/03/24 03/04/24 03/05/24 23:59 23:59 23:59 Intake Total 990.00 / 990.00 750 / 750 300 / 300 Output Total 850 / 850 350 / 350 0 / 0 Balance 140.00 / 140.00 400 / 400 300 / 300 Lab / Micro Data 03/03/24 06:33 03/05/24 05:43 Labs: Laboratory Results - last 24 hr 03/05/24 05:43: Sodium 144, Potassium 3.5, Chloride 118 H, Carbon Dioxide 19.0 L , Anion Gap 7, BUN 63 H, Creatinine 1.65 H, Estim Creat Clear Calc 33.33, Est GFR (MDRD) Af Amer 51 L, Est GFR (MDRD) Non-Af 42 L, BUN/Creatinine Ratio 38.2 H , Glucose 121 H, Calcium 8.7 Micro: Microbiology 02/28/24 01:10 Urine, Clean Catch Legionella Antigen - Final 02/28/24 01:10 Urine, Clean Catch Streptococcus pneumoniae Antigen (M - Final 02/27/24 01:10 Nasal Secretion MRSA (PCR) - Final 02/27/24 23:10 Mucosa - Nasopharyngeal Respiratory Panel (PCR) - Final Rhythm Strip Rhythm Strip: A-fib Rate: 140 Ectopy: None Physical Exam Narrative alert, oriented x3, no apparent distress and average body habitus General Appearance: cooperative, well kempt and well developed Orientation / Consciousness: awake, oriented to person, oriented to place and oriented to time HEENT normocephalic, head/scalp atraumatic and moist oral mucous membranes Eyes PERRL, EOMs intact bilaterally and conjunctivae normal Neck supple, no JVD and thyroid normal General: trachea midline Resp normal respiratory effort, no retractions, no use of accessory muscles and clear to auscultation bilaterally Auscultation: Negative for rales, rhonchi or wheezes Cardio regular rate, regular rhythm, S1 normal heart sound, S2 normal heart sound, no murmurs, no rub and no gallops GI normal to inspection, nondistended, normoactive bowel sounds, soft to palpation, non-tender and non-distended Extremity no clubbing, cyanosis or edema Skin no rashes or lesions noted General Skin Exam: no breakdown Neuro oriented x3, CN's II-XII intact bilaterally, no focal motor deficits and no sensory deficits noted Sensorium / Orientation: awake and alert Speech: speech normal Psych affect normal Assessment & Plan Assessment/Plan (1) Acute hypoxic respiratory failure: (2) Hypoxemia: PLAN: Plan 1. Acute hypoxic respiratory failure secondary to bilateral multifocal pneumonia-patient remains on broad-spectrum antibiotic therapy, he is being seen by pulmonary medicine, pulse ox will be monitored and oxygen will be weaned if possible, patient was placed on corticosteroids by pulmonary medicine. Patient's oxygen requirement has improved, he is now at 2 L via nasal cannula. I will discuss discharge planning with [employer] social [employer] teacher and case management tomorrow. #2 paroxysmal atrial fibrillation-patient is on rate limiting medications and anticoagulants he will be monitored on telemetry #3 essential hypertension-patient is on metoprolol, his other medications including lisinopril and spironolactone for his blood pressure will be held due to his acute kidney injury #4 acute kidney injury-labs will be monitored, patient's creatinine was improved today and appears near baseline. Total clinical time spent by myself addressing the patient's medical issues, reviewing all of his data, and collaborating with patient's care team: 35 minutes Charges/Coding Visit Charges Inpatient E&M: 80839 Subs Hosp L2
[2024-03-06 03:00] VITALS: BP 121/92; PULSE 95; RESP 20; TEMP 36.7; O2SAT 94
[2024-03-06 04:56] VITALS: BMI 21.8
[2024-03-06] MEDS: Piperacil/Tazobactam 3.375 GM in 0.9% Normal Saline (50mL MB+) 50 ML IV (05:35)
[2024-03-06] MEDS: Nystatin Powder 15gm Bottle 1 APPLIC TOPICAL ×2 (05:35→14:27)
[2024-03-06 07:53] VITALS: PULSE 101; RESP 20; O2SAT 94
[2024-03-06] MEDS: Budesonide Respules 0.5 MG/2 ML AMPUL.NEB. INHALATION (07:53)
[2024-03-06 08:56] VITALS: PULSE 97
[2024-03-06] MEDS: buPROPion (XL) 150 MG TABLET.XL PO (08:56)
[2024-03-06] MEDS: Metoprolol(XL)Succ 100 MG Tablet PO (08:56)
[2024-03-06] MEDS: APIXABAN 2.5 MG TABLET (WCH) PO (08:57)
[2024-03-06] MEDS: Mesalamine 1.2 GM Tablet 2.4 GM PO (08:57)
[2024-03-06] MEDS: Hydroxychloroquine 200 MG Tablet 400 MG PO (08:57)
[2024-03-06] MEDS: Menthol/Lanolin/Calamine/Znox 113 GM Tube 1 APPLIC TOPICAL (08:58)
[2024-03-06 09:00] VITALS: BP 125/90; PULSE 72; RESP 17; TEMP 36.3; O2SAT 96
--- NOTE | 2024-03-06 10:38 | CASEMGMT ---
RICHARD let Kathryn know that patient will be coming to TCU today. Aliza Escalera [employer] NANCY
[2024-03-06 11:32] VITALS: O2SAT 95; O2SAT 96
--- NOTE | 2024-03-06 12:20 | PN.CC_ITS ---
Assessment & Plan Assessment/Plan (1) Hypoxemia: PLAN: Plan RECOMMENDATIONS: 1. Continue antimicrobials to complete treatment course. 2. Stop IV steroids and transition to prednisone 40 mg daily, with plans to complete a 5-day burst. 3. Encourage incentive spirometer use and mobilize patient as tolerated. 4. Will sign off at this time. Please call with any additional questions. IMPRESSIONS: 1. Acute hypoxemic respiratory failure Appears to be secondary to bilateral multifocal pneumonia. The patient has been initiated on appropriate broad-spectrum antimicrobial therapy. Given the severity of his underlying disease and hypoxemia, corticosteroids were initiated. With supportive care the, the patient's respiratory status has improved. At this point, the patient can be transition from IV corticosteroids to prednisone 40 mg daily, with plans to complete a 5-day burst. 2. History of rheumatoid arthritis/chronic kidney disease/coronary artery disease/paroxysmal atrial fibrillation/flutter Complicates care, management, recovery and prognosis. Continue home medications as indicated. Encourage incentive spirometer use and mobilize patient as tolerated. CODE STATUS: DNR CCA without intubation This note was generated with [employer] dictation software. It may contain incorrect words, spelling, and punctuation that were not noted in checking the note before signing. Subjective Subjective The patient was seen and examined at the bedside this morning. Events from the last 24 hours have been reviewed. The patient is currently afebrile, hemodynamically stable and maintaining appropriate oxygen saturations on room air. The patient is currently documented to be overall net +2.9 L for the hospitalization. Disposition planning is underway for TCU. Objective Data Objective Data The patient's most recent lab work, culture data and imaging studies have all been personally reviewed. Respiratory viral panel was negative. Strep and urine Legionella antigens were negative. Vital Signs: Vital Signs Temp Pulse Resp BP Pulse Ox O2 Del Method O2 Flow Rate 98.0 F 97 20 H 121/92 H 94 Nasal Cannula 2 03/06/24 03:00 03/06/24 08:56 03/06/24 07:53 03/06/24 03:00 03/06/24 07:53 03/06/24 08:00 03/06/24 08:00 Oxygen Flow Rate (L/min) 2 Oxygen Delivery Method Nasal Cannula Weight: 169 lb 15.622 oz Body Mass Index (BMI) 21.8 Intake & Output: Intake and Output for Last 24 Hours 03/04/24 03/05/24 03/06/24 23:59 23:59 23:59 Intake Total 750 / 750 710 / 710 100 / 100 Output Total 350 / 350 0 / 200 600 / 600 Balance 400 / 400 710 / 510 -500 / -500 Lab / Micro Data Attestation: I reviewed the patient's lab results. 03/03/24 06:33 03/05/24 05:43 Labs: Laboratory Results - last 24 hr 03/02/24 06:54: WBC 7.6, RBC 4.50 L, Hgb 13.4, Hct 41.9, MCV 93.1, MCH 29.8, MCHC 32.0, RDW Std Deviation 51.2 H, RDW Coeff of Dominick 14.7 H, Plt Count 481 H, MPV 11.4, Immature Gran % (Auto) 2.500 H, Neut % (Auto) 90.9 H, Lymph % (Auto) 5.1 L, [place] % (Auto) 1.2, Eos % (Auto) 0.0, Baso % (Auto) 0.3, Absolute Neuts (auto) 6.9, Absolute Lymphs (auto) 0.39 L, Nucleated RBC % 0, Sodium 138, Potassium 4.9, Chloride 111 H, Carbon Dioxide 20.0 L, Anion Gap 7, BUN 39 H, C reatinine 1.63 H, Estim Creat Clear Calc 35.68, Est GFR (MDRD) Af Amer 52 L, Est GFR (MDRD) Non-Af 43 L, BUN/Creatinine Ratio 23.9 H, Glucose 144 H, Calcium 8.6 Micro: Microbiology 02/28/24 01:10 Urine, Clean Catch Legionella Antigen - Final 02/28/24 01:10 Urine, Clean Catch Streptococcus pneumoniae Antigen (M - Final 02/27/24 01:10 Nasal Secretion MRSA (PCR) - Final 02/27/24 23:10 Mucosa - Nasopharyngeal Respiratory Panel (PCR) - Final Rhythm Strip Rhythm Strip: A-fib Rate: 140 Ectopy: None Physical Exam Const alert and no apparent distress Constitutional Narrative: Sitting in bedside recliner. is present at the bedside. General Appearance: cooperative HEENT normocephalic, head/scalp atraumatic and moist oral mucous membranes General Ear: hearing grossly impaired Eyes EOMs intact bilaterally and conjunctivae normal Neck supple General: trachea midline Chest inspection of chest normal Resp Auscultation: diminished lung sounds; Negative for rales, rhonchi or wheezes Cardio regular rate, regular rhythm, S1 normal heart sound and S2 normal heart sound GI normal to inspection, nondistended, normoactive bowel sounds Extremity no clubbing, cyanosis or edema Skin no rashes or lesions noted Neuro CN's II-XII intact bilaterally, moves all extremities and no focal motor deficits Psych cooperative and affect normal Charges/Coding Visit Charges Inpatient E&M: 81489 Subs Hosp L2
--- NOTE | 2024-03-06 13:43 | TREXTCAR_ITS ---
Diet Diet Order/Speech Therapy: 03/02/24 09:30 Diet: Cardiac - Heart Healthy Food consistency:: Soft & Bite Sized Liquid Consistency:: Regular/Thin Type of Dietary Supplement:: Ensure Compact Diet Comments: TOTAL FEED, liquids by straw, sips 1 at a time, alt bites/sips Routine Orders/Code Status Code Status: DNRCC-A (no intubation) DC O2, CPAP, BIPAP needs RN Home O2 Qualification: Home O2 Qualification: Is the patient on home oxygen No 03/06/24 11:32 Home O2 Qualification: AT REST 1- Pulse Ox at rest 95 03/06/24 11:32 Home O2 Qualification: WITH AMBULATION 1- Pulse Ox with ambulation 96 03/06/24 11:32 1- Oxygen Flow Rate with 0 03/06/24 11:32 ambulation 2- Pulse Ox with ambulation 93 03/05/24 12:44 2- Oxygen Flow Rate with 4 03/05/24 12:44 ambulation Home O2 Discharge instructions: Yes Type of respiratory needs?: Oxygen Oxygen frequency: With Ambulation Oxygen liters per minute during Ambulation: 4 L Wound(s) left fa: Wound Type: Skin Tear Therapies Weight Bearing: Full weight bearing Physical Therapy: Eval and Treat Occupational Therapy: Eval and Treat Speech Therapy: Eval and Treat Problem/Diagnosis (1) Hypoxemia: Status: Acute Code(s): R09.02 - Hypoxemia Plan 1. Acute hypoxic respiratory failure secondary to bilateral multifocal pneumonia-patient remains on broad-spectrum antibiotic therapy, he is being seen by pulmonary medicine, pulse ox will be monitored and oxygen will be weaned if possible, patient was placed on corticosteroids by pulmonary medicine. Patient's oxygen requirement has improved, he is now at 2 L via nasal cannula. I will discuss discharge planning with high school social studies teacher and case management tomorrow. #2 paroxysmal atrial fibrillation-patient is on rate limiting medications and anticoagulants he will be monitored on telemetry #3 essential hypertension-patient is on metoprolol, his other medications including lisinopril and spironolactone for his blood pressure will be held due to his acute kidney injury #4 acute kidney injury-labs will be monitored, patient's creatinine was improved today and appears near baseline. Total clinical time spent by myself addressing the patient's medical issues, reviewing all of his data, and collaborating with patient's care team: 35 m inutes Allergies/Procedures Done in Hospital Allergies etanercept (From Enbrel) Adverse Reaction (Verified 02/27/24 20:04) Rash Procedures: None Type of Care/Length of Stay Estimated LOS: Convalescent Care Less Than 30 days Type of Care Needed: Skilled Rehab Potential: Good Prognosis: Good Additional Orders/Day of Discharge H&P will serve as current which was dated: 02/27/24 Day of Discharge: 03/06/24 Dietary and Speech Recommendations Dietitian Recommendations/Changes: Continue cardiac diet with consistency/texture as per STAFF PHYSICAL THERAPY ASSISTANT. Continue ensure compact w/ breakfast and dinner. Discharge Plan Admission Admit Date/Time: 02/27/24 17:54 Primary Reason for Your Visit: pneumonia, respiratory failure Attending Provider: Donato Crowder Primary Care Provider: Santino Long Consulting Providers: Alisa Mack; Shani Root Discharge Orders/Prescriptions Prescriptions: New acetaminophen 325 mg Tablet 650 mg PO Q4H PRN PRN (Reason: Fever, pain 1-11/30) Qty: 0 0RF albuterol sulfate 2.5 mg /3 mL (0.083 %) Solution For Nebulization 2.5 mg inhalation Q2H PRN PRN (Reason: Dyspnea, wheezing) Qty: 0 0RF prednisone 20 mg Tablet 40 mg PO BREAKFAST Qty: 0 0RF Rx Instructions: give for five does starting 03/07/24 sennosides-docusate sodium [Stimulant Laxative Plus] 8.6-50 mg Tablet 2 tab PO BID PRN PRN (Reason: Constipation) Qty: 0 0RF metoprolol succinate 100 mg Tablet Extended Release 24 Hr 100 mg PO DAILY Qty: 0 0RF budesonide 0.5 mg/2 mL Suspension For Nebulization 0.5 mg inhalation BID.RT Qty: 0 0RF nystatin [Nyamyc] 100,000 unit/gram Powder 1 applic topical TID Qty: 0 0RF Protocol: *Topical Application Instructions APPLICATION INSTRUCTIONS: apply to abd folds/groin hydroxychloroquine 200 mg Tablet 200 mg PO Meza@0800 Qty: 0 0RF hydroxychloroquine 200 mg Tablet 400 mg PO MoTuWeThFrSa@0800 Qty: 0 0RF alum-mag hydroxide-simeth [Mag-Al Plus Extra Strength] 400-400-40 mg/5 mL Suspension 30 ml PO Q6H PRN PRN (Reason: Gastric Burning) Qty: 0 0RF bupropion HCl 150 mg Tablet Extended Release 24 Hr 150 mg PO DAILY Qty: 0 0RF mesalamine 1.2 gram Tablet,Delayed Release (Dr/Ec) 2.4 g PO DAILY Qty: 0 0RF menthol-zinc oxide [Calmoseptine] 0.44-20.6 % Ointment 1 applic topical BID Qty: 0 0RF Protocol: *Topical Application Instructions APPLICATION INSTRUCTIONS: buttocks Eliquis 5 mg Tablet 2.5 mg PO BID Qty: 0 0RF Continued (DME) Handicap Placard See Rx Instructions .Route .MEDSUPPLY Qty: 1 0RF Rx Instructions: Good from 09/17/22-09/18/2027 Discontinued tramadol 50 mg tablet 50 mg PO BID PRN (Reason: pain) furosemide 40 mg tablet 40 mg PO PRN PRN (Reason: edema) metoprolol succinate 50 mg tablet extended release 24 hr 50 mg PO DAILY Qty: 90 3RF hydroxychloroquine 200 mg tablet 400 mg PO DAILY Rx Instructions: 2 tabs daily except on Tuesday mesalamine 0.375 gram capsule,extended release 24hr 1.5 g PO DAILY bupropion HCl 150 mg tablet extended release 24 hr 150 mg PO DAILY lisinopril 20 mg tablet 20 mg PO DAILY spironolactone 25 mg tablet 25 mg PO DAILY Qty: 30 11RF Eliquis 5 mg tablet 5 mg PO BID Qty: 180 3RF No Action amoxicillin-pot clavulanate 875-125 mg tablet 1 tab PO BID Qty: 10 0RF Patient Comments: START DATE- 02/24/24 END DATE 02/29/24 albuterol sulfate [Ventolin HFA] 90 mcg/actuation HFA aerosol inhaler 2 puff INHALATION Q4H PRN (Reason: wheezing) Farxiga 10 mg tablet 10 mg PO DAILY Qty: 30 12RF Referrals / Follow Up: Santino Long MD [Primary Care Provider] - Disposition Disposition (needs filled in before D/C Order can be placed): Longterm Facility
--- NOTE | 2024-03-06 15:07 | DS.PCM_ITS ---
Providers Date of Admission: 02/27/24 Date of Discharge: 03/06/24 Primary Care Physician: Dr. Santino Long MD Consultations 02/29/24 14:01 Consult: Gear Technician / Pulmonary Medicine Routine Consulting Provider: Intensivists/Pulmonary Med Reason for Consult: acute hypoxic respiratory failure EMERGENT Consult: No MD Notified: Yes Date Notified: 02/29/24 Time Notified: 14:02 Method of Notification: Text Reason For Visit: COVID-19 SUPERIMPOSED H INFLUENZA Diagnosis Discharge Diagnosis (1) Hypoxemia: Status: Acute Code(s): R09.02 - Hypoxemia Plan 1. Acute hypoxic respiratory failure secondary to bilateral multifocal pneumonia-patient remains on broad-spectrum antibiotic therapy, he is being seen by pulmonary medicine, pulse ox will be monitored and oxygen will be weaned if possible, patient was placed on corticosteroids by pulmonary medicine. Patient's oxygen requirement has improved, he is now at 2 L via nasal cannula. I will discuss discharge planning with social services analyst and case management tomorrow. #2 paroxysmal atrial fibrillation-patient is on rate limiting medications and anticoagulants he will be monitored on telemetry #3 essential hypertension-patient is on metoprolol, his other medications including lisinopril and spironolactone for his blood pressure will be held due to his acute kidney injury #4 acute kidney injury-labs will be monitored, patient's creatinine was improved today and appears near baseline. Total clinical time spent by myself addressing the patient's medical issues, reviewing all of his data, and collaborating with patient's care team: 35 minutes Medications at Discharge Home Medications Handicap Placard #1 ea 09/17/22 dapagliflozin propanediol 10 mg tablet (Farxiga) 10 mg PO DAILY DIABETES #30 tabs 08/23/23 amoxicillin 875 mg-potassium clavulanate 125 mg tablet 1 tab PO BID Antibiotic #10 tabs 02/24/24 albuterol sulfate 90 mcg/actuation aerosol inhaler (Ventolin HFA) 2 puff inhalation Q4H PRN wheezing 02/27/24 acetaminophen 325 mg tablet 650 mg (2 x 325 mg) PO Q4H PRN PRN Fever, pain 1- 11/30 #0 tabs 03/06/24 albuterol sulfate 2.5 mg/3 mL (0.083 %) solution for nebulization 2.5 mg (3 mL) inhalation Q2H PRN PRN Dyspnea, wheezing #0 mL 03/06/24 aluminum-mag hydroxide-simethicone 400 mg-400 mg-40 mg/5 mL oral susp (Mag-Al Plus Extra Strength) 30 ml PO Q6H PRN PRN Gastric Burning #0 mL 03/06/24 apixaban 5 mg tablet (Eliquis) 2.5 mg (1/2 x 5 mg) PO BID Blood Thinner #0 tabs 03/06/24 budesonide 0.5 mg/2 mL suspension for nebulization 0.5 mg (2 mL) inhalation BID.RT SOB #0 mL 03/06/24 bupropion HCl 150 mg 24 hr tablet, extended release 150 mg PO DAILY Mood #0 tabs 03/06/24 hydroxychloroquine 200 mg tablet 200 mg PO Meza@0800 Rheumatoid Arthritis #0 tabs 03/06/24 hydroxychloroquine 200 mg tablet 400 mg (2 x 200 mg) PO MoTuWeThFrSa@0800 Rheumatoid Arthritis #0 tabs 03/06/24 menthol 0.44 %-zinc oxide 20.6 % topical ointment (Calmoseptine) 1 applic topical BID Skin Irritation #0 grams 03/06/24 mesalamine 1.2 gram tablet,delayed release 2.4 g (2 x 1.2 gram) PO DAILY Ulcerative colitis #0 tabs 03/06/24 metoprolol succinate 100 mg tablet,extended release 24 hr 100 mg PO DAILY BP #0 tabs 03/06/24 nystatin 100,000 unit/gram topical powder (Nyamyc) 1 applic topical TID Skin Irritation #0 grams 03/06/24 prednisone 20 mg tablet 40 mg (2 x 20 mg) PO BREAKFAST Inflammation #0 tabs 03/06/24 sennosides 8.6 mg-docusate sodium 50 mg tablet (Stimulant Laxative Plus) 2 tab PO BID PRN PRN Constipation #0 tabs 03/06/24 Hospital Course Operations None Procedures None Summary of Care Provided Minutes Spent on Discharge: 32 Hospital Course: This 88-year-old white male was seen in the emergency room at [facility] with a chief complaint of shortness of breath, patient recently been discharged from the hospital 3 days prior for COVID complicated by pneumonia and influenza. Since he was at home, patient complained that he was actually feeling better had a nonproductive cough but had some dyspnea with exertion, physical therapy and home health found that the patient was hypoxic at home on room air at 86 while at rest. He was sent in for evaluation. Workup in the ER included a CBC which showed a slightly elevated white blood cell count, creatinine was elevated at 1.91, BUN was 55 and D-dimer was elevated 1.63 EKG was performed which showed the patient to be in atrial FaBB with RVR, patient had a history of paroxysmal A-fib, chest x-ray was obtained which showed resolution of the right lower lobe infiltrate but development of an infiltrate versus atelectasis in the left lower lobe and the right upper lobes. Patient was not felt to need a CTA of the chest due to the fact he was on chronic anticoagulation patient was given IV Rocephin in the emergency room and admitted to PCU. Patient was seen in consultation by pulmonary medicine, his supplemental oxygen requirement was high initially and over the next several days was able to be decreased, he was diuresed. Patient was seen by PT and OT. On 03/06/2024, patient was seen and examined: On examination he appeared in good health and spirits. Vital signs as documented. Skin warm and dry and without overt rashes. Neck without JVD, neck was supple, trachea midline, thyroid was normal. Lungs clear bilaterally, normal air movement was noted. Heart exam notable for regular rhythm, normal sounds and absence of murmurs, rubs or gallops. Abdomen unremarkable and without evidence of organomegaly, masses, or abdominal aortic enlargement. Bowel sounds are present, abdomen is not distended. Extremities nonedematous, no cyanosis was noted, no clubbing was noted. Neuro: Cranial nerves II through XII are grossly intact, no focal motor deficits were noted, sensation to light touch and pinprick intact, motor exam 5/5 throughout. Psych: Patient is alert and oriented x3, he does not appear anxious or depressed, he does not appear agitated. Patient was transferred to a residential facility on 03/06/2024 in stable condition Weight / BMI Weight Weight: 77.1 kg Body Mass Index (BMI) 21.8 ABG / Lab / Microbiology Data 03/03/24 06:33 03/05/24 05:43 Microbiology: Microbiology 02/28/24 01:10 Urine, Clean Catch Legionella Antigen - Final 02/28/24 01:10 Urine, Clean Catch Streptococcus pneumoniae Antigen (M - Final 02/27/24 01:10 Nasal Secretion MRSA (PCR) - Final 02/27/24 23:10 Mucosa - Nasopharyngeal Respiratory Panel (PCR) - Final D/C Instructions DC O2, CPAP, BIPAP Needs RN Home O2 Qualification: Home O2 Qualification: Is the patient on home oxygen No 03/06/24 11:32 Home O2 Qualification: AT REST 1- Pulse Ox at rest 95 03/06/24 11:32 Home O2 Qualification: WITH AMBULATION 1- Pulse Ox with ambulation 96 03/06/24 11:32 1- Oxygen Flow Rate with 0 03/06/24 11:32 ambulation 2- Pulse Ox with ambulation 93 03/05/24 12:44 2- Oxygen Flow Rate with 4 03/05/24 12:44 ambulation Home O2 Discharge instructions: Yes Type of respiratory needs?: Oxygen Oxygen frequency: With Ambulation Oxygen liters per minute during Ambulation: 4 L DC home with Oxygen: Yes Home O2 MD Review: I have reviewed the oxygen testing, and the patient qualifies for home oxygen equipment and portability. The patient is mobile in the home and the community. Meaningful Use Info Meaningful Use Meaningful Use Diagnoses (Choose all that apply): None applicable Ischemic Stroke Statin Dosing Therapy Reference: STATIN DOSE THERAPY REFERENCE: * Patients > 75 years receive moderate or high dose statin therapy. * Patients 75 years or YOUNGER should receive HIGH intensity statin dose unless contraindicated. You will be required to document reason for non-treatment if statin daily dose does not meet guidelines. HIGH DOSE STATIN THERAPY DAILY Atorvastatin > than or = to 40 mg Rosuvastatin > than or = to 20 mg Amlodipine + Atorvastatin > than or = to 2.5/40 mg Ezetimibe + Simvastatin 10/80 mg Simvastatin 80mg Discharge Plan Admission Admit Date/Time: 02/27/24 17:54 Primary Reason for Your Visit: pneumonia, respiratory failure Attending Provider: Donato Crowder Primary Care Provider: Santino Long Consulting Providers: Alisa Mack; Shani Root Discharge Orders/Prescriptions Prescriptions: New acetaminophen 325 mg Tablet 650 mg PO Q4H PRN PRN (Reason: Fever, pain 1-10/10) Qty: 0 0RF albuterol sulfate 2.5 mg /3 mL (0.083 %) Solution For Nebulization 2.5 mg inhalation Q2H PRN PRN (Reason: Dyspnea, wheezing) Qty: 0 0RF prednisone 20 mg Tablet 40 mg PO BREAKFAST Qty: 0 0RF Rx Instructions: give for five does starting 03/07/24 sennosides-docusate sodium [Stimulant Laxative Plus] 8.6-50 mg Tablet 2 tab PO BID PRN PRN (Reason: Constipation) Qty: 0 0RF metoprolol succinate 100 mg Tablet Extended Release 24 Hr 100 mg PO DAILY Qty: 0 0RF budesonide 0.5 mg/2 mL Suspension For Nebulization 0.5 mg inhalation BID.RT Qty: 0 0RF nystatin [Nyamyc] 100,000 unit/gram Powder 1 applic topical TID Qty: 0 0RF Protocol: *Topical Application Instructions APPLICATION INSTRUCTIONS: apply to abd folds/groin hydroxychloroquine 200 mg Tablet 200 mg PO Meza@0800 Qty: 0 0RF hydroxychloroquine 200 mg Tablet 400 mg PO MoTuWeThFrSa@0800 Qty: 0 0RF alum-mag hydroxide-simeth [Mag-Al Plus Extra Strength] 400-400-40 mg/5 mL Suspension 30 ml PO Q6H PRN PRN (Reason: Gastric Burning) Qty: 0 0RF bupropion HCl 150 mg Tablet Extended Release 24 Hr 150 mg PO DAILY Qty: 0 0RF mesalamine 1.2 gram Tablet,Delayed Release (Dr/Ec) 2.4 g PO DAILY Qty: 0 0RF menthol-zinc oxide [Calmoseptine] 0.44-20.6 % Ointment 1 applic topical BID Qty: 0 0RF Protocol: *Topical Application Instructions APPLICATION INSTRUCTIONS: buttocks Eliquis 5 mg Tablet 2.5 mg PO BID Qty: 0 0RF Continued (DME) Handicap Placard See Rx Instructions .Route .MEDSUPPLY Qty: 1 0RF Rx Instructions: Good from 09/17/22-09/18/2027 Discontinued tramadol 50 mg tablet 50 mg PO BID PRN (Reason: pain) furosemide 40 mg tablet 40 mg PO PRN PRN (Reason: edema) metoprolol succinate 50 mg tablet extended release 24 hr 50 mg PO DAILY Qty: 90 3RF hydroxychloroquine 200 mg tablet 400 mg PO DAILY Rx Instructions: 2 tabs daily except on Tuesday mesalamine 0.375 gram capsule,extended release 24hr 1.5 g PO DAILY bupropion HCl 150 mg tablet extended release 24 hr 150 mg PO DAILY lisinopril 20 mg tablet 20 mg PO DAILY spironolactone 25 mg tablet 25 mg PO DAILY Qty: 30 11RF Eliquis 5 mg tablet 5 mg PO BID Qty: 180 3RF No Action amoxicillin-pot clavulanate 875-125 mg tablet 1 tab PO BID Qty: 10 0RF Patient Comments: START DATE- 02/24/24 END DATE 02/29/24 albuterol sulfate [Ventolin HFA] 90 mcg/actuation HFA aerosol inhaler 2 puff INHALATION Q4H PRN (Reason: wheezing) Farxiga 10 mg tablet 10 mg PO DAILY Qty: 30 12RF Referrals / Follow Up: Santino Long MD [Primary Care Provider] - Disposition Disposition (needs filled in before D/C Order can be placed): [facility] Facility Charges/Coding Visit Charges Inpatient E&M: 55158 Disch Hosp >30min
--- NOTE | 2024-03-06 16:34 | NURSING ---
pt transfered to TCU report given to Antonio all questions answered
== END 2024-03-06 16:36 | disposition skilled nursing facility (03) | DRG 871 ==
LOC: ED 17:57 → PCU 18:29
PROVIDERS: Student in an Organized Health Care Education/Training Program; Admitting Provider Family Medicine; Emergency Provider Emergency Medicine; PCP Internal Medicine; Visit Provider Internal Medicine
DX: A41.3 Sepsis due to Hemophilus influenzae (principal); J14 Pneumonia due to Hemophilus influenzae; J96.01 Acute respiratory failure with hypoxia; I42.9 Cardiomyopathy, unspecified; I13.0 Hypertensive heart and chronic kidney disease with heart failure and stage 1 through stage 4 chronic kidney disease, or unspecified chronic kidney disease; I50.22 Chronic systolic (congestive) heart failure; N17.9 Acute kidney failure, unspecified; R62.7 Adult failure to thrive; Z66 Do not resuscitate; N18.30 Chronic kidney disease, stage 3 unspecified; M06.9 Rheumatoid arthritis, unspecified; F32.A Depression, unspecified; I48.0 Paroxysmal atrial fibrillation; E78.5 Hyperlipidemia, unspecified; I25.10 Atherosclerotic heart disease of native coronary artery without angina pectoris; I48.91 Unspecified atrial fibrillation; R54 Age-related physical debility; B96.3 Hemophilus influenzae [H. influenzae] as the cause of diseases classified elsewhere; Z87.891 Personal history of nicotine dependence; Z79.01 Long term (current) use of anticoagulants; R09.02 Hypoxemia; Z86.73 Personal history of transient ischemic attack (TIA), and cerebral infarction without residual deficits; N40.1 Benign prostatic hyperplasia with lower urinary tract symptoms; N13.9 Obstructive and reflux uropathy, unspecified
CPT/HCPCS: 36415; 36600; 71045; 71260; 74230; 76770; 80048; 80053; 81001; 82570; 82803; 83735; 83880; 84145; 84300; 84484; 85025; 85379; 87449; 87633; 87641; 92526; 92610; 92611; 93005; 94640; 94760; 94762; 97110; 97116; 97162; 97166; 97530; 97535; 97802; 99284; Q9967; A4216; J0295; J1940

== ENCOUNTER 2024-03-06 16:42 | Inpatient (IN) | payer MEDICARE, BC, SELFPAY ==
[2024-03-06 18:20] VITALS: BMI 19.7
[2024-03-06 18:45] VITALS: PULSE 69; RESP 20; O2SAT 95
[2024-03-06] MEDS: Budesonide Respules 0.5 MG/2 ML AMPUL.NEB. INHALATION (18:45)
[2024-03-06 19:00] VITALS: BP 102/84; PULSE 83; RESP 16; TEMP 35.8; O2SAT 96
--- NOTE | 2024-03-06 20:10 | HP.PCM_ITS ---
HPI - General General Date of Admission: 03/06/24 Date of Service: 03/06/24 Chief Complaint: Here for rehabilitation. HPI Narrative LUCINDA HERNANDEZ, is a 88 Male who presents with followin02/27/2024 [facility] ED shortness of breath. Discharged from [facility] 3 days prior for covid-19, Haemophilus influenzae pneumonia. Mild cough, dyspnea on exertion, pulsox 86% room air at home. Atrial fibrillation with rapid ventricular response. on oral Augmentin for H. Flu pneumonia in sputum, Troponin elevated. Rocephin IV given. 02/27/2024 Admit [facility]. Unasyn IV, Azithromycin IV for H. Flu pneumonia. Trend troponin for elevated troponin. Gentle IV fluids for acute kidney injury. PO beta alvino, Cardizem 10mg iv x 1 dose, then Cardizem drip for atrial fibrillation with rapid ventricular response. 02/28/2024 Feeling better, oxygen 3 liters per nasal cannula. Unasyn, Azithromycin for H. Flu pneumonia. Urine antigen for strep negative, legionella negative, Respiratory panel negative. Creatinine 1.46. 02/29/2024 Frail, weak, hypoxic with therapy, oxygen 8 liters per nasal cannula. Wet cough. Lasix IV, CTA chest for worsening hypoxia. 03/01/2024 High Flow oxygen. Pulmonary medicine started steroids. 03/02/2024 High flow oxygen, Lasix given. Unasyn, Azithromycin for H. Flu pneumonia. Steroids, diuretics to improve respiratory status. 03/03/2024 Oxygen 7 liters per nasal cannula. Hold Lasix 2/2 acute kidney injury. 03/04/2024 Oxygen 6 liters per nasal cannula. 03/05/2024 Oxygen 2 liters per nasal cannula, 4 liters per nasal cannula with ambulation. Case management for discharge planning. 03/06/2024 Admit to TCU with debility, here for rehabilitation, strengthening, prior to discharge home with . [facility] Medical History (Updated 03/06/24 @ 20:[address] 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 History of stroke CAD (coronary artery disease) Atrial fibrillation/flutter CKD (chronic kidney disease), stage III Cardiomyopathy Lung nodules BPH (benign prostatic hyperplasia) Rheumatoid arthritis Essential hypertension Hypertension HTN (hypertension) Colitis Home Medications ?Medication ?Instructions ?Recorded ?Last Taken ?Type Handicap Placard #1 ea 09/17/22 Unknown Rx dapagliflozin propanediol 10 mg 10 mg PO DAILY DIABETES #30 tabs 08/23/23 02/27/24 Rx tablet (Farxiga) amoxicillin 875 mg-potassium 1 tab PO BID Antibiotic #10 tabs 02/24/24 02/27/24 Rx clavulanate 125 mg tablet albuterol sulfate 90 mcg/actuation 2 puff inhalation Q4H PRN wheezing 02/27/24 Unknown History aerosol inhaler (Ventolin HFA) acetaminophen 325 mg tablet 650 mg (2 x 325 mg) PO Q4H PRN PRN 03/06/24 Unknown Rx Fever, pain -11/30 #0 tabs albuterol sulfate 2.5 mg/3 mL 2.5 mg (3 mL) inhalation Q2H PRN 03/06/24 Unknown Rx (0.083 %) solution for nebulization PRN Dyspnea, wheezing #0 mL aluminum-mag hydroxide-simethicone 30 ml PO Q6H PRN PRN Gastric 03/06/24 Unknown Rx 400 mg-400 mg-40 mg/5 mL oral susp Burning #0 mL (Mag-Al Plus Extra Strength) apixaban 5 mg tablet (Eliquis) 2.5 mg (1/2 x 5 mg) PO BID Blood 03/06/24 Unknown Rx Thinner #0 tabs budesonide 0.5 mg/2 mL suspension 0.5 mg (2 mL) inhalation BID.RT 03/06/24 Unknown Rx for nebulization SOB #0 mL bupropion HCl 150 mg 24 hr tablet, 150 mg PO DAILY Mood #0 tabs 03/06/24 Unknown Rx extended release hydroxychloroquine 200 mg tablet 200 mg PO Meza@0800 Rheumatoid 03/06/24 Unknown Rx Arthritis #0 tabs hydroxychloroquine 200 mg tablet 400 mg (2 x 200 mg) PO 03/06/24 Unknown Rx MoTuWeThFrSa@0800 Rheumatoid Arthritis #0 tabs menthol 0.44 %-zinc oxide 20.6 % 1 applic topical BID Skin 03/06/24 Unknown Rx topical ointment (Calmoseptine) Irritation #0 grams mesalamine 1.2 gram tablet,delayed 2.4 g (2 x 1.2 gram) PO DAILY 03/06/24 Unknown Rx release Ulcerative colitis #0 tabs metoprolol succinate 100 mg 100 mg PO DAILY BP #0 tabs 03/06/24 Unknown Rx tablet,extended release 24 hr nystatin 100,000 unit/gram topical 1 applic topical TID Skin 03/06/24 Unknown Rx powder (Nyamyc) Irritation #0 grams prednisone 20 mg tablet 40 mg (2 x 20 mg) PO BREAKFAST 03/06/24 Unknown Rx Inflammation #0 tabs sennosides 8.6 mg-docusate sodium 2 tab PO BID PRN PRN Constipation 03/06/24 Un known Rx 50 mg tablet (Stimulant Laxative #0 tabs Plus) Allergy/AdvReac Type Severity Reaction Status Date / Time etanercept (From Enbrel) AdvReac Rash Verified 02/27/24 20:04 Family History Mother Diabetes CAD (coronary artery disease) Myocardial infarction, Onset Age: 82 Father CAD (coronary artery disease) Brother CAD (coronary artery disease) Hypertension Surgical History History of cardioversion History of bilateral cataract extraction History of foot surgery History of hernia repair History of arthroscopy of knee History of bilateral knee replacement Social History household members: spouse housing: house Smoking Status: Former smoker how long ago did patient quit smokin years ago alcohol intake: current alcohol intake frequency: 0-2 drinks per day Alcohol type: beer details: wine substance use type: does not use caffeine: Yes Type: coffee Number of servings: 2 ROS Constitutional Constitutional: Reports weakness; Denies chills, fever(s) or weight gain ENT HEENT: Denies headache(s), nasal congestion or nasal discharge Cardiovascular Cardiovascular: Denies chest pain or palpitations Respiratory/Chest Respiratory/Chest: Denies cough, excessive phlegm production or shortness of breath with exertion Gastrointestinal Gastrointestinal: Denies abdominal pain, nausea or vomiting Genitourinary Genitourinary: Denies dysuria Musculoskeletal Musculoskeletal: Denies joint pain or joint swelling Integumentary Integumentary: Denies rash or wounds Neurologic Neurologic: Denies focal weakness, numbness or tingling Psychiatric Psychiatric: Denies anxiety, auditory hallucinations, depression, homicidal ideation or suicidal ideation Vital Signs Vital Signs Vital Signs: 03/06/24 19:00 Temperature 96.4 F L Temperature Source Temporal Pulse Rate 83 Respiratory Rate 16 Blood Pressure 102/84 H Blood Pressure Mean 90 Blood Pressure Source Monitor Blood Pressure Location Right Arm Pulse Ox 96 Oxygen Delivery Method Room Air Weight Weight: 73.482 kg Body Mass Index (BMI) 19.7 Physical Exam Const alert General Appearance: cooperative HEENT normocephalic Eyes PERRL and EOMs intact bilaterally Neck supple, no JVD and no carotid bruits Resp normal respiratory effort, normal air movement and clear to auscultation bilaterally Cardio regular rate and regular rhythm GI normal to inspection, nondistended, normoactive bowel sounds, non-tender and non-distended Extremity normal capillary refill General Extremity: Negative for edema Skin no rashes or lesions noted General Skin Exam: no breakdown Psych affect normal Appearance: appropriate Assessment & Plan Assessment/Plan (1) Debility: (2) Acute hypoxic respiratory failure: (3) Pneumonia due to Haemophilus influenzae: (4) Atrial fibrillation with RVR: (5) SHIMA (acute kidney injury): (6) Rheumatoid arthritis: (7) Essential hypertension: (8) HFrEF (heart failure with reduced ejection fraction): (9) Depression: (10) COPD (chronic obstructive pulmonary disease): PLAN: Plan 88 year old male with below past medical history hospitalized for acute respiratory failure 2/2 Haemophilus influenzae pneumonia, complicated by atrial fibrillation with rapid ventricular response, acute kidney injury, admitted to TCU with debility, here for rehabilitation, strengthening, prior to discharge home with . * Debility - PT/OT. * Dysphagia - ST. * Pain - Tylenol 1000mg q6 prn pain (1-10). * Bowel - senna/colace 2 tablets bid prn. * Adult immunization - Administer pneumonia vaccine, covid vaccine, flu vaccine as appropriate. * DVT prophylaxis - on Eliquis. * COPD - Budesonide 0.5mg inhaled bid, Albuterol mdi 2 puffs q4 prn, Prednisone 40mg taper, resident on room air. * Atrial fibrillation - Metoprolol succinate 100mg daily, Eliquis 2.5mg bid. * Depression - Wellbutrin XL 150mg daily, stable chronic half-way use, GDR not recommended. * Rheumatoid arthritis - Plaquenil 400mg daily 6 days per week, 200mg daily 1 day per week. * Indigestion - Mylanta II 30mL po q6 prn. * Skin irritation - Calmoseptine topical bid. * Colitis - Lialda 2.4gm daily. * Tinea Corporis - Nystatin powder topical tid.
[2024-03-06] MEDS: Menthol/Lanolin/Calamine/Znox 113 GM Tube 1 APPLIC TOPICAL (22:00)
[2024-03-06] MEDS: APIXABAN 2.5 MG TABLET (WCH) PO (22:00)
[2024-03-06] MEDS: Nystatin Powder 15gm Bottle 1 APPLIC TOPICAL (22:00)
[2024-03-07 05:44] LABS: Absolute Lymphocyte Count 0.46 X10^3/uL (0.83-4.51); Absolute Neutrophil Count 15.1 X10^3/uL (2.0-7.7); Basophil# 0.01 X10^3/uL; Basophil% 0.1 % (0-1); Hematocrit 38.3 % (40-54); Hemoglobin 12.1 g/dL (13.0-16.5); Lymphocyte # 0.46 X10^3/ul (0.83-4.51); Lymphocyte % 2.8 % (19-41); Mean Corp Hgb Conc 31.6 g/dL (32-36); Mean Corpuscular Hgb 29.7 pg (27.0-32.0); Mean Corpuscular Volume 93.9 fL (80-94); Monocyte# 0.73 X10^3/uL; Monocyte% 4.4 % (0-10); NRBC Flagged by Analyzer 0 % (0-5); Neutrophil # 15.07 X10^3/uL (2.7-7.7); Neutrophil % 91.4 % (47-70); POSITIVE DIFFERENTIAL YES; Platelet Count 320 K/mm3 (150-450); RBC Distribution Width CV 14.6 % (11.6-14.6); RBC Distribution Width SD 50.6 fl (35.1-43.9); Red Blood Count 4.08 M/mm3 (4.6-6.2); White Blood Count 16.5 K/mm3 (4.4-11.0)
[2024-03-07] MEDS: Nystatin Powder 15gm Bottle 1 APPLIC TOPICAL ×2 (06:02→21:52)
[2024-03-07 06:21] LABS: Anion Gap 7 (5-15); BUN 57 mg/dL (7-18); BUN/Creat Ratio 41.6 RATIO (10-20); Calcium,Total 8.7 mg/dL (8.5-10.1); Chloride 117 mmol/L (98-107); Creatinine, Serum 1.37 mg/dL (0.70-1.30); EST Glomerular Filtration Rate 52 mL/min (>60); Est Glom Filt Rate - Afr Amer 63 mL/min (>60); Estimated Creatinine Clearance 39.48 ml/min; Glucose 107 mg/dL (74-106); Potassium 3.8 mmol/L (3.5-5.1); Sodium Level 144 mmol/L (136-145)
[2024-03-07 07:49] VITALS: PULSE 62; RESP 16; O2SAT 91
[2024-03-07] MEDS: Budesonide Respules 0.5 MG/2 ML AMPUL.NEB. INHALATION (07:49)
[2024-03-07] MEDS: predniSONE 20 MG Tablet 40 MG PO (09:37)
[2024-03-07] MEDS: APIXABAN 2.5 MG TABLET (WCH) PO (09:37)
[2024-03-07] MEDS: Mesalamine 1.2 GM Tablet 2.4 GM PO (09:37)
[2024-03-07] MEDS: buPROPion (XL) 150 MG TABLET.XL PO (09:37)
[2024-03-07] MEDS: Hydroxychloroquine 200 MG Tablet 400 MG PO (09:37)
[2024-03-07] MEDS: Menthol/Lanolin/Calamine/Znox 113 GM Tube 1 APPLIC TOPICAL ×2 (09:45→21:52)
[2024-03-07 09:46] VITALS: BP 96/64; PULSE 55
[2024-03-07 10:59] VITALS: BP 127/88; PULSE 67
[2024-03-07] MEDS: Tuberculin,Purif.prot.deriv. 50 TU/ML Vial 0.1 ML ID (10:59)
[2024-03-07] MEDS: Metoprolol(XL)Succ 100 MG Tablet PO (10:59)
--- NOTE | 2024-03-07 14:43 | NURSING ---
Writing Center Director Note; Activity Asset: Sam Lopez is independent in his choice of daily activities. has stated he prefers to just rest and spend time w/his , family and friends when not in therapy. He was asked what his activities where at home and stated he just stayed home with his . will be here daily with him and bring items from home that he may want. Staff will encourage social activities, remind him of weekly activities and respect his right to say no.
--- NOTE | 2024-03-07 15:59 | PHA.CONS_ITS ---
Documented by User: Ro Huynh 03/07/24 16:50 TCU RX Drug Regimen Review Subjective/Objective Subjective/Objective Subjective: TCU Admission. 88 YOM presented to ER with SOB. Hospitalized for acute respiratory failure 2/2 Haemophilus influenzae pneumonia, complicated by atrial fibrillation with rapid ventricular response, acute kidney injury. Admitted to TCU with debility for strengthening and rehabilitation. Objective: Allergies etanercept (From Enbrel) Adverse Reaction (Verified 02/27/24 20:04) Rash Current Medications Generic Name Dose Route Start Last Admin Trade Name Freq PRN Reason Stop Dose Admin Acetaminophen 1,000 mg 03/06/24 20:31 Acetaminophen 500 Mg Tablet PO Q6H PRN PRN Pain Score 1-10 Al Hydroxide/Mg Hydroxide 30 ml 03/06/24 17:15 Mag Hydrox/Al Hydrox/Simeth 30 Ml Udc PO Q6H PRN PRN Gastric Burning Albuterol Sulfate 2 puff 03/06/24 17:15 Albuterol Ih (6.7 Gm) 1 Puff Inhaler INHALATION Q4H PRN wheezing Apixaban 2.5 mg 03/06/24 22:00 03/07/24 09:37 Apixaban 2.5 Mg Tablet (Wch) PO 2.5 mg BID CARMEN Administration Budesonide 0.5 mg 03/06/24 17:15 03/07/24 07:49 Budesonide Respules 0.5 Mg/2 Ml Ampul.Neb. INHALATION 0.5 mg BID.RT CARMEN Administration Bupropion HCl 150 mg 03/07/24 10:00 03/07/24 09:37 Bupropion (Xl) 150 Mg Tablet.Xl PO 150 mg DAILY CARMEN Administration Calamine/Phenol 1 applic 03/06/24 22:00 03/07/24 09:45 Menthol/Lanolin/Calamine/Znox 113 Gm Tube TOPICAL 1 applic BID CARMEN Administration Protocol Hydroxychloroquine Sulfate 200 mg 03/11/24 08:00 Hydroxychloroquine 200 Mg Tablet PO Meza@0800 CARMEN Hydroxychloroquine Sulfate 400 mg 03/07/24 08:00 03/07/24 09:37 Hydroxychloroquine 200 Mg Tablet PO 400 mg MoTuWeThFrSa@0800 CARMEN Administration Mesalamine 2.4 gm 03/07/24 10:00 03/07/24 09:37 Mesalamine 1.2 Gm Tablet PO 2.4 gm DAILY CARMEN Administration Metoprolol Succinate 100 mg 03/07/24 10:00 03/07/24 10:59 Metoprolol(Xl)Succ 100 Mg Tablet PO 100 mg DAILY CARMEN Administration Protocol Nystatin 1 applic 03/06/24 22:00 03/07/24 06:02 Nystatin Powder 15gm Bottle TOPICAL 1 applic TID CARMEN Administration Protocol Prednisone 40 mg 03/07/24 08:00 03/07/24 09:37 Prednisone 20 Mg Tablet PO 03/11/24 08:01 40 mg BREAKFAST CARMEN Administration Senna/Docusate Sodium 2 tablet 03/06/24 17:15 Senna/Docusate Sodium 1 Tablet PO BID PRN PRN Constipation Tuberculin PPD 0.1 ml 03/14/24 10:00 Tuberculin,Purif.Prot.Deriv. 50 Tu/Ml Vial ID 03/14/24 10:01 X1 ONE Problem List COPD (chronic obstructive pulmonary disease) (Chronic) Depression (Acute) HFrEF (heart failure with reduced ejection fraction) (Acute) Rheumatoid arthritis (Acute) Debility (Acute) Acute hypoxic respiratory failure (Acute) SHIMA (acute kidney injury) (Acute) Pneumonia due to Haemophilus influenzae (Acute) Atrial fibrillation with RVR (Acute) Essential hypertension (Chronic) Vital Signs Temp Pulse Resp BP Pulse Ox O2 Del Method O2 Flow Rate 96.4 F L 67 16 127/88 H 91 Nasal Cannula 2 03/06/24 19:00 03/07/24 10:59 03/07/24 07:49 03/07/24 10:59 03/07/24 07:49 03/07/24 07:49 03/07/24 09:14 Oxygen Flow Rate (L/min) 2 Oxygen Delivery Method Nasal Cannula Weight: 73.482 kg Body Mass Index (BMI) 19.7 Sodium 144 mmol/L (136-145) 03/07/24 05:15 Potassium 3.8 mmol/L (3.5-5.1) 03/07/24 05:15 Chloride 117 mmol/L (98-107) H 03/07/24 05:15 Carbon Dioxide 20.0 mmol/L (21.0-32.0) L 03/07/24 05:15 Anion Gap 7 (5-15) 03/07/24 05:15 BUN 57 mg/dL (7-18) H 03/07/24 05:15 Creatinine 1.37 mg/dL (0.70-1.30) H 03/07/24 05:15 Est GFR (MDRD) Af Amer 63 mL/min (>60) 03/07/24 05:15 Est GFR (MDRD) Non-Af 52 mL/min (>60) L 03/07/24 05:15 BUN/Creatinine Ratio 41.6 RATIO (10-20) H 03/07/24 05:15 Glucose 107 mg/dL (74-106) H 03/07/24 05:15 Assessment/Plan: 1. Pain: acetaminophen 1000mg PO Q6H PRN pain 1-10. No PRN doses have been given. Please continue to monitor for increased pain and PRN usage. 2. Bowel: senna/docusate 2T PO BID PRN constipation. Resident has not had any PRN doses. Please continue to monitor for PRN usage and constipation. Last documented bowel movement was 03/07. 3. Atrial fibrillation: metoprolol succinate 100mg PO daily and apixaban 2.5mg PO BID. Please consider changing apixaban to 5mg as resident does not meet crit eria for the decreased dose as SCr is <1.5mg/dL and weight is >60kg. Thanks. Please continue to monitor for S/S of bleeding, BP (last 127/88), HR (last 67) and hemoglobin (last 12.1g/dL). 4. Colitis: mesalamine 2.4gm PO daily. Please continue to monitor for GI side effects, bleeding, hemorrhoids. 5. Rheumatoid arthritis: hydroxychloroquine 200mg PO Sundays and 400mg all other days. Please continue to monitor for CBC, vision changes, and rash. 6. COPD: budesonide 0.5mg nebulization BID (delay start until prednisone completed), prednisone 40mg PO daily thru 03/11/24, albuterol MDI 2 puff Q4H PRN wheezing. No PRN doses have been given. Please continue to monitor for S/S of wheezing, agitation, glucose (last 107mg/dL), upset stomach and PRN usage. 7. Indigestion: Mylanta II 30mL PO Q6H PRN gastric burning. Please continue to monitor for indigestion and PRN usage. No doses given yet. 8. Skin irritation/tinea corporis: Calmoseptine topical bid and Nystatin powder topical tid. Assessment/Plan for indications treated with psychotropic medications: 1. Depression: bupropion XL 150mg PO daily. Please see physician note regarding GDR. Please continue to monitor for suicidal ideation (black box warning), sodium (last 144mmol/L), agitation, memory impairment and confusion. Medical chart and medication regimen reviewed. The following medication irregularities or issues were identified: 1. Apixaban 2.5mg PO BID. Please consider changing apixaban to 5mg as resident does not meet criteria for the decreased dose as SCr is <1.5mg/dL and weight is >60kg. Thanks Date Date of Note: 03/07/24 Documented by User: Dr. Bishop Anderson MD 03/07/24 16:13 TCU RX Drug Regimen Review Provider Comments Provider responsibility Provider Comments to Recommendations by Pharmacy Agree
[2024-03-07 16:00] VITALS: BP 105/78; PULSE 102; RESP 19; TEMP 35.9; O2SAT 97
[2024-03-07 16:56] VITALS: O2SAT 96
[2024-03-07] MEDS: APIXABAN 5 MG TABLET PO (21:50)
[2024-03-08] VITALS (7 sets, daily range): BP systolic 89–110; BP diastolic 60–79; PULSE 60–97; RESP 18; TEMP 36.5; O2SAT 93–98
[2024-03-08] MEDS: Metoprolol(XL)Succ 100 MG Tablet PO (09:26)
[2024-03-08] MEDS: predniSONE 20 MG Tablet 40 MG PO (09:26)
[2024-03-08] MEDS: Mesalamine 1.2 GM Tablet 2.4 GM PO (09:27)
[2024-03-08] MEDS: APIXABAN 5 MG TABLET PO ×2 (09:27→20:44)
[2024-03-08] MEDS: buPROPion (XL) 150 MG TABLET.XL PO (09:27)
[2024-03-08] MEDS: Hydroxychloroquine 200 MG Tablet 400 MG PO (09:27)
[2024-03-08] MEDS: Menthol/Lanolin/Calamine/Znox 113 GM Tube 1 APPLIC TOPICAL ×2 (09:27→20:44)
[2024-03-08] MEDS: Nystatin Powder 15gm Bottle 1 APPLIC TOPICAL ×2 (09:28→20:44)
--- NOTE | 2024-03-08 15:32 | NURSING ---
Addendum entered by Brittaney Vu 03/08/24 15:50: Per PAT, need to ask physician about what to do with doses of eliquis. Texted Dr. Lucia for orders. Original Note: Call from PAT about resident being scheduled for egd tomorrow with Dr. Lucia. Needs to be NPO after midnight, ok to have clear liquids until 4 hours before surgery.
--- NOTE | 2024-03-08 18:08 | CASEMGMT ---
Social Work SW met with pt to complete initial assessment. SW introduced self and rold of SW. Cotacts were verified. Pt has Advance Directives on file naming his Luigi Arrieta. SW educated pt to Medicare benefit and copay coverage. Pt's goal is to return home with his . SW to continue to follow for DC planning. MEREDITH Carrillo
--- NOTE | 2024-03-08 18:18 | EX.PCM.CON.G ---
HPI Consult Data Date of Consult: 03/08/24 HPI Narrative Reason for Consultation: Dysphagia HPI Narrative: LUCINDA HERNANDEZ, is a 88 y/o M w/ PMHx: CAD, recently discharged on 02/24/24 following evaluation and treatment of hypoxia secondary to recent COVID-19 infection with superimposed H. influenzae pneumonia treated inpatient with IV Rocephin and IV azithromycin discharged on oral Augmentin weaned off of oxygen with initial recommendation for transitional care unit. However, patient and family deferred and transition to home now representing to the [facility] ED in 02/27/2024 with progressively worsening increased fatigue, malaise, difficulty performing simple activities at home with onset of more dyspnea with exertion with first PT aggressive therapy on day of presentation with noted hypoxia at that time prompting referral to the ED to be cautious. He was diagnosed with multifocal pneumonia and started on steroids with broad-spectrum antibiotics. Patient did well and was able to be sent back to transitional care unit for rehabilitation prior to discharge. He had been having decreasing appetite along with some esophageal dysphagia and coughing after eating so speech therapy was consulted to see the patient. He was identified as having oropharyngeal and esophageal dysphagia. Therefore I was consulted to see the patient. He said this has been going on approximately 6 months where he has been having trouble swallowing solids more than liquids. He does a lot of throat clearing. He does have some nausea. [facility] Medical History (Updated 03/08/24 @ 18:[address] 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 Cardiomyopathy Lung nodules BPH (benign prostatic hyperplasia) Rheumatoid arthritis Essential hypertension Hypertension HTN (hypertension) Colitis Home Medications ?Medication ?Instructions ?Recorded ?Last Taken ?Type Handicap Placard #1 ea 09/17/22 Unknown Rx dapagliflozin propanediol 10 mg 10 mg PO DAILY DIABETES #30 tabs 08/23/23 02/27/24 Rx tablet (Farxiga) amoxicillin 875 mg-potassium 1 tab PO BID Antibiotic #10 tabs 02/24/24 02/27/24 Rx clavulanate 125 mg tablet albuterol sulfate 90 mcg/actuation 2 puff inhalation Q4H PRN wheezing 02/27/24 Unknown History aerosol inhaler (Ventolin HFA) acetaminophen 325 mg tablet 650 mg (2 x 325 mg) PO Q4H PRN PRN 03/06/24 Unknown Rx Fever, pain 1-11/30 #0 tabs albuterol sulfate 2.5 mg/3 mL 2.5 mg (3 mL) inhalation Q2H PRN 03/06/24 Unknown Rx (0.083 %) solution for nebulization PRN Dyspnea, wheezing #0 mL aluminum-mag hydroxide-simethicone 30 ml PO Q6H PRN PRN Gastric 03/06/24 Unknown Rx 400 mg-400 mg-40 mg/5 mL oral susp Burning #0 mL (Mag-Al Plus Extra Strength) apixaban 5 mg tablet (Eliquis) 2.5 mg (1/2 x 5 mg) PO BID Blood 03/06/24 Unknown Rx Thinner #0 tabs budesonide 0.5 mg/2 mL suspension 0.5 mg (2 mL) inhalation BID.RT 03/06/24 Unknown Rx for nebulization SOB #0 mL bupropion HCl 150 mg 24 hr tablet, 150 mg PO DAILY Mood #0 tabs 03/06/24 Unknown Rx extended release hydroxychloroquine 200 mg tablet 200 mg PO Meza@0800 Rheumatoid 03/06/24 Unknown Rx Arthritis #0 tabs hydroxychloroquine 200 mg tablet 400 mg (2 x 200 mg) PO 03/06/24 Unknown Rx MoTuWeThFrSa@0800 Rheumatoid Arthritis #0 tabs menthol 0.44 %-zinc oxide 20.6 % 1 applic topical BID Skin 03/06/24 Unknown Rx topical ointment (Calmoseptine) Irritation #0 grams mesalamine 1.2 gram tablet,delayed 2.4 g (2 x 1.2 gram) PO DAILY 03/06/24 Unknown Rx release Ulcerative colitis #0 tabs metoprolol succinate 100 mg 100 mg PO DAILY BP #0 tabs 03/06/24 Unknown Rx tablet,extended release 24 hr nystatin 100,000 unit/gram topical 1 applic topical TID Skin 03/06/24 Unknown Rx powder (Nyamyc) Irritation #0 grams prednisone 20 mg tablet 40 mg (2 x 20 mg) PO BREAKFAST 03/06/24 Unknown Rx Inflammation #0 tabs sennosides 8.6 mg-docusate sodium 2 tab PO BID PRN PRN Constipation 03/06/24 Unknown Rx 50 mg tablet (Stimulant Laxative #0 tabs Plus) Allergy/AdvReac Type Severity Reaction Status Date / Time etanercept (From Enbrel) AdvReac Rash Verified 03/08/24 15:41 Family History Mother Diabetes CAD (coronary artery disease) Myocardial infarction, Onset Age: 82 Father CAD (coronary artery disease) Brother CAD (coronary artery disease) Hypertension Surgical History History of cardiac catheterization History of cardioversion History of bilateral cataract extraction History of foot surgery History of hernia repair History of arthroscopy of knee History of bilateral knee replacement Social History household members: spouse housing: house Smoking Status: Former smoker how long ago did patient quit smokin years ago alcohol intake: current alcohol intake frequency: 0-2 drinks per day Alcohol type: beer details: wine substance use type: does not use caffeine: Yes Type: coffee Number of servings: 2 ROS Constitutional Constitutional: Denies fatigue, fever(s), poor appetite, weight gain or weight loss Gastrointestinal Gastrointestinal: Denies belching, bloating, change in bowel habits, change in stool character, chewing difficulty, coffee ground emesis, constipation, cramping, diarrhea, dyspepsia, dysphagia, early satiety, excessive flatus, fecal incontinence, heartburn, hematemesis, hematochezia, hemorrhoids, loose stools, melena, nausea, odynophagia, rectal bleeding, tenesmus, vomiting or weight changes Physical Exam Const alert, oriented x3, no apparent distress and healthy appearing General Appearance: cooperative GI normal to inspection, nondistended, normoactive bowel sounds, soft to palpation, non-tender and non-distended Percussion: normal to percussion Rectal Exam: deferred Medical Records Data Medical Nutrition Assessment Dietitian: Malnutrition Criteria Met Start: 03/07/24 13:31 Freq: Status: Active Protocol: Document 03/07/24 13:31 SLA (Rec: 03/07/24 13:31 SLA [id number]) Nutrition Malnutrition Evidence of Malnutrition Exists Yes Malnutrition (severe): Acute Illness/Injury Evidenced By Suboptimal Energy Intake ( Severe),Weight Loss (Severe) Clinical Problem Biting/Chewing Difficulty Etiology related to need for dysphagia Signs/Symptoms as evidenced by need for modified consistency diet Status Active Problem Acute Disease or Injury Related Malnutrition Etiology related to acute illness and suboptimal nutrition intake Signs/Symptoms as evidenced by po intake meeting <50% and ~ 5% unplanned wt loss x 1 mo 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 Lab / Micro Data 03/07/24 05:15 03/07/24 05:15 Assessment & Plan Assessment/Plan (1) Difficulty swallowing: PLAN: Differential diagnosis for his esophageal dysphagia does include poor dentition, esophageal motility disorder such as achalasia, pseudo achalasia, structural problem such as eosinophilic esophagitis, Schatzki's ring. Also differential diagnosis includes erosive esophagitis, esophageal diverticulum, paraneoplastic syndromes. He will undergo an upper endoscopy and possible esophageal manometry. He was explained alternatives, risk and benefits include not withstanding bleeding, infection, sepsis, perforation, need for emergent urgent . He will have an ASA of 3. Charges/Coding Visit Charges Inpatient E&M: 33253 SNF Init L2
--- NOTE | 2024-03-09 00:01 | NURSING ---
NPO per order
[2024-03-09 06:49] VITALS: PULSE 94; RESP 16
[2024-03-09] MEDS: Hydroxychloroquine 200 MG Tablet 400 MG PO (08:13)
[2024-03-09] MEDS: predniSONE 20 MG Tablet 40 MG PO (08:13)
[2024-03-09 08:16] VITALS: BP 110/78; PULSE 82
[2024-03-09] MEDS: Metoprolol(XL)Succ 100 MG Tablet PO (08:16)
[2024-03-09] MEDS: buPROPion (XL) 150 MG TABLET.XL PO (08:17)
[2024-03-09] MEDS: Menthol/Lanolin/Calamine/Znox 113 GM Tube 1 APPLIC TOPICAL ×2 (08:20→21:46)
[2024-03-09] MEDS: Nystatin Powder 15gm Bottle 1 APPLIC TOPICAL ×2 (08:21→21:46)
--- NOTE | 2024-03-09 11:13 | NURSING ---
Addendum entered by Brittaney Vu 03/09/24 14:21: Resident returned from egd. Original Note: Down for EGD at 1040.
--- NOTE | 2024-03-09 14:15 | NURSING ---
Returns from EGD at this time and patient tolerated well. Placed on full liquid diet and patient drinking water at this time. in room and update given on procedure.
[2024-03-09 14:30] VITALS: BP 110/78; PULSE 82; RESP 18; TEMP 36.1; O2SAT 94
--- NOTE | 2024-03-09 15:55 | CHAPLAIN ---
Type of Pastoral Visit _x__ Initial Visit ___ Follow-up Visit ___ On-call Visit ___ General Patient Visit ___ Spiritual Assessment ___ Family Conference ___ Bereavement ___ Rapid Response ___ Code Blue ___ Other (describe below) Pastoral Care Referral From ___ Patient _x__ Family ___ Nurse ___ Physician ___ Contract Recruiter ___ Superintendent [employer] ___ Other (describe below) Sacrament/Intervention _x__ Active listening ___ Anointing ___ Mandaen ___ Bereavement ___ Communion ___ Tresa exploration ___ ___ Life review _x__ Prayer ___ Reconciliation ___ Sacrament of Sick _x__ Supportive presence ___ Wedding ___ Other (describe below) Pastoral Comments patient has been seen before in the PCU and [facility] recently; was met in the hallway and offered support yesterday; says that pt is discouraged and feels like he will be staying in TCU forever; met with both today and excused herself; sat with patient and talked about the day and his progress; gave patient reminders that this is a transitional unit and not a permanent unit; gave presence and prayer as welcomed by the patient
[2024-03-09] MEDS: APIXABAN 5 MG TABLET PO (21:45)
[2024-03-10 07:45] VITALS: O2SAT 94
[2024-03-10] MEDS: buPROPion (XL) 150 MG TABLET.XL PO (08:56)
[2024-03-10] MEDS: predniSONE 20 MG Tablet 40 MG PO (08:57)
[2024-03-10] MEDS: Mesalamine 1.2 GM Tablet 2.4 GM PO (08:57)
[2024-03-10] MEDS: Hydroxychloroquine 200 MG Tablet 400 MG PO (08:57)
[2024-03-10] MEDS: APIXABAN 5 MG TABLET PO ×2 (08:57→22:19)
[2024-03-10] MEDS: Nystatin Powder 15gm Bottle 1 APPLIC TOPICAL ×2 (08:58→22:18)
[2024-03-10] MEDS: Menthol/Lanolin/Calamine/Znox 113 GM Tube 1 APPLIC TOPICAL ×2 (08:58→22:18)
[2024-03-10] MEDS: 0.9% Normal Saline (1000mL) 1,000 ML 999 ML IV (12:08)
[2024-03-10] MEDS: 0.9% Saline Lock 10 ML Syringe IV (12:09)
[2024-03-10 12:11] VITALS: BP 92/61; PULSE 89
[2024-03-10] MEDS: Metoprolol(XL)Succ 100 MG Tablet PO (12:11)
[2024-03-10 15:16] VITALS: BP 98/71; PULSE 92; RESP 16; TEMP 36.3; O2SAT 93
[2024-03-11 07:33] VITALS: O2SAT 93
[2024-03-11] MEDS: Mesalamine 1.2 GM Tablet 2.4 GM PO (08:42)
[2024-03-11] MEDS: Hydroxychloroquine 200 MG Tablet PO (08:42)
[2024-03-11] MEDS: 0.9% Saline Lock 10 ML Syringe IV (08:42)
[2024-03-11] MEDS: APIXABAN 5 MG TABLET PO ×2 (08:42→21:08)
[2024-03-11] MEDS: Menthol/Lanolin/Calamine/Znox 113 GM Tube 1 APPLIC TOPICAL ×2 (08:42→21:08)
[2024-03-11] MEDS: buPROPion (XL) 150 MG TABLET.XL PO (08:42)
[2024-03-11] MEDS: predniSONE 20 MG Tablet 40 MG PO (08:42)
[2024-03-11] MEDS: Nystatin Powder 15gm Bottle 1 APPLIC TOPICAL ×2 (08:43→21:08)
[2024-03-11 10:22] VITALS: BP 100/65; PULSE 97
[2024-03-11] MEDS: Metoprolol(XL)Succ 100 MG Tablet PO (10:22)
[2024-03-11 14:41] VITALS: BP 103/68; PULSE 98; RESP 20; TEMP 36.6; O2SAT 98
[2024-03-12 06:40] VITALS: PULSE 97; RESP 16; O2SAT 92
[2024-03-12] MEDS: Budesonide Respules 0.5 MG/2 ML AMPUL.NEB. INHALATION ×2 (06:40→18:50)
[2024-03-12 10:34] VITALS: BP 93/75; PULSE 79; RESP 18; TEMP 36.3; O2SAT 95
[2024-03-12 10:43] VITALS: BP 93/75; PULSE 101
[2024-03-12] MEDS: Hydroxychloroquine 200 MG Tablet 400 MG PO (10:43)
[2024-03-12] MEDS: Metoprolol(XL)Succ 100 MG Tablet PO (10:43)
[2024-03-12] MEDS: APIXABAN 5 MG TABLET PO ×2 (10:43→20:46)
[2024-03-12] MEDS: buPROPion (XL) 150 MG TABLET.XL PO (10:44)
[2024-03-12] MEDS: Mesalamine 1.2 GM Tablet 2.4 GM PO (10:44)
[2024-03-12] MEDS: Menthol/Lanolin/Calamine/Znox 113 GM Tube 1 APPLIC TOPICAL ×2 (10:48→20:47)
[2024-03-12] MEDS: Nystatin Powder 15gm Bottle 1 APPLIC TOPICAL ×2 (10:48→20:47)
[2024-03-12 16:55] VITALS: O2SAT 95
[2024-03-12 18:50] VITALS: PULSE 113; RESP 20
[2024-03-13 07:34] VITALS: O2SAT 95
[2024-03-13] MEDS: buPROPion (XL) 150 MG TABLET.XL PO (08:58)
[2024-03-13] MEDS: APIXABAN 5 MG TABLET PO (08:58)
[2024-03-13] MEDS: Hydroxychloroquine 200 MG Tablet 400 MG PO (08:58)
[2024-03-13 08:59] VITALS: BP 105/53; PULSE 100
[2024-03-13] MEDS: Mesalamine 1.2 GM Tablet 2.4 GM PO (08:59)
[2024-03-13] MEDS: Metoprolol(XL)Succ 100 MG Tablet PO (08:59)
[2024-03-13] MEDS: Nystatin Powder 15gm Bottle 1 APPLIC TOPICAL (09:02)
[2024-03-13] MEDS: Acetaminophen 500 MG Tablet 1000 MG PO (10:56)
--- NOTE | 2024-03-13 10:57 | CASEMGMT ---
Social Work SW completed BIMS (07/05) and PHQ-9 (12/17) for MDS assessment. SIM PalmerW
[2024-03-13 11:00] VITALS: BP 98/81; PULSE 114; O2SAT 94
[2024-03-13 11:46] VITALS: O2SAT 95
--- NOTE | 2024-03-13 12:58 | EKG12_ITS ---
Test Reason : IRREGULAR HR Blood Pressure : */* mmHG Vent. Rate : 113 BPM Atrial Rate : 241 BPM P-R Int : * ms QRS Dur : 118 ms QT Int : 328 ms P-R-T Axes : * 1 167 degrees QTcB Int : 449 ms Atrial fibrillation Left ventricular hypertrophy with QRS widening ST & T wave abnormality, consider lateral ischemia Abnormal ECG When compared with ECG of 03-Mar-2024 12:12, No significant change was found Confirmed by NATALI CORONA, VICKY ([id number]), photographic editor JESE TAMEZ ([id number]) on 03/19/2024 2:18:49 PM Referred By: Bishop Anderson Confirmed By: VICKY HURST MD
[2024-03-13 13:21] LABS: Absolute Neutrophil Count 9.8 X10^3/uL (2.0-7.7); Basophil# 0.02 X10^3/uL; Basophil% 0.2 % (0-1); Eosinophil# 0.04 X10^3/uL; Eosinophils% 0.4 % (0-5); Hematocrit 31.2 % (40-54); Lymphocyte % 3.6 % (19-41); Mean Corp Hgb Conc 32.1 g/dL (32-36); Mean Corpuscular Hgb 31.5 pg (27.0-32.0); Mean Corpuscular Volume 98.4 fL (80-94); Mean Platelet Vol. 12.4 fl (6.2-12.0); Monocyte# 0.44 X10^3/uL; NRBC Flagged by Analyzer 0 % (0-5); Neutrophil # 9.83 X10^3/uL (2.7-7.7); Neutrophil % 89.7 % (47-70); POSITIVE DIFFERENTIAL YES; Platelet Count 201 K/mm3 (150-450); RBC Distribution Width CV 17.3 % (11.6-14.6); RBC Distribution Width SD 59.5 fl (35.1-43.9); Red Blood Count 3.17 M/mm3 (4.6-6.2)
--- NOTE | 2024-03-13 13:31 | NURSING ---
Pt very drowsy refusing to eat lunch. BP 125/92 HR going from 100's dropping into 50's SpO2 94% RA No c/o of chest pain or palpations. Dr. Anderson updated N.O. EKG CBC w/diff BMP NS 1000ml bolus. EKG completed sent Results to Dr. Anderson on secure text messaging. Dr. Anderson called this Nurse and N.O. to sent pt down to E.R. for evaluation. Orders Read back. Updated and Niece and they accompanied pt to E.R.
[2024-03-13 13:44] LABS: Anion Gap 8 (5-15); BUN 48 mg/dL (7-18); BUN/Creat Ratio 27.9 RATIO (10-20); Calcium,Total 8.3 mg/dL (8.5-10.1); Chloride 112 mmol/L (98-107); Creatinine, Serum 1.72 mg/dL (0.70-1.30); EST Glomerular Filtration Rate 40 mL/min (>60); Est Glom Filt Rate - Afr Amer 49 mL/min (>60); Estimated Creatinine Clearance 31.45 ml/min; Glucose 122 mg/dL (74-106); Potassium 4.4 mmol/L (3.5-5.1); Sodium Level 139 mmol/L (136-145)
--- NOTE | 2024-03-13 13:48 | MDS.RN ---
Staff pain assessment completed for MDS, resident off unit.
[2024-03-13 16:38] VITALS: O2SAT 94
[2024-03-13 17:11] VITALS: BMI 19.1
--- NOTE | 2024-03-13 19:25 | PCM.DC.SUM ---
Providers Date of Admission: 03/06/24 Primary Care Physician: Dr. Santino Long MD Consultations 03/07/24 17:25 Consult: Gastroenterology Routine Consulting Provider: Caitlin G[facility] Reason for Consult: Esophageal retention, slow emptying, high aspiration risk. EMERGENT Consult: No MD Notified: Yes Date Notified: 03/07/24 Time Notified: 17:25 Method of Notification: Text Reason For Visit: ACUTE RESPIRATORY FAILURE Diagnosis Discharge Diagnosis (1) Difficulty swallowing: Status: Acute Code(s): R13.10 - Dysphagia, unspecified Plan 88 year old male with below past medical history hospitalized for acute respiratory failure 2/2 Haemophilus influenzae pneumonia, complicated by atrial fibrillation with rapid ventricular response, acute kidney injury, admitted to TCU with debility, here for rehabilitation, strengthening, prior to discharge home with . Debility - PT/OT. Dysphagia - ST. Pain - Tylenol 1000mg q6 prn pain (1-10). Bowel - senna/colace 2 tablets bid prn. Adult immunization - Administer pneumonia vaccine, covid vaccine, flu vaccine as appropriate. DVT prophylaxis - on Eliquis. COPD - Budesonide 0.5mg inhaled bid, Albuterol mdi 2 puffs q4 prn, Prednisone 40mg taper, resident on room air. Atrial fibrillation - Metoprolol succinate 100mg daily, Eliquis 2.5mg bid. 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 Rheumatoid arthritis - Plaquenil 400mg daily 6 days per week, 200mg daily 1 day per week. Indigestion - Mylanta II 30mL po q6 prn. Skin irritation - Calmoseptine topical bid. Colitis - Lialda 2.4gm daily. Tinea Corporis - Nystatin powder topical tid. Medications at Discharge Home Medications Handicap Placard #1 ea 09/17/22 albuterol sulfate 90 mcg/actuation aerosol inhaler (Ventolin HFA) 2 puff inhalation Q4H PRN wheezing 02/27/24 aluminum-mag hydroxide-simethicone 400 mg-400 mg-40 mg/5 mL oral susp (Mag-Al Plus Extra Strength) 30 ml PO Q6H PRN PRN Gastric Burning #0 mL 03/06/24 budesonide 0.5 mg/2 mL suspension for nebulization 0.5 mg (2 mL) inhalation BID.RT SOB #0 mL 03/06/24 bupropion HCl 150 mg 24 hr tablet, extended release 150 mg PO DAILY Mood #0 tabs 03/06/24 hydroxychloroquine 200 mg tablet 200 mg PO Meza@0800 Rheumatoid Arthritis #0 tabs 03/06/24 hydroxychloroquine 200 mg tablet 400 mg (2 x 200 mg) PO MoTuWeThFrSa@0800 Rheumatoid Arthritis #0 tabs 03/06/24 menthol 0.44 %-zinc oxide 20.6 % topical ointment (Calmoseptine) 1 applic topical BID Skin Irritation #0 grams 03/06/24 mesalamine 1.2 gram tablet,delayed release 2.4 g (2 x 1.2 gram) PO DAILY Ulcerative colitis #0 tabs 03/06/24 metoprolol succinate 100 mg tablet,extended release 24 hr 100 mg PO DAILY BP #0 tabs 03/06/24 acetaminophen 500 mg capsule 1,000 mg PO Q6H PRN pain 03/13/24 apixaban 5 mg tablet (Eliquis) 5 mg PO BID Blood Thinner 03/13/24 nystatin 100,000 unit/gram topical powder (Nyamyc) 1 applic topical BID Skin Irritation 03/13/24 sennosides 8.6 mg-docusate sodium 50 mg tablet (Stimulant Laxative Plus) 2 tab PO Q6H PRN PRN Constipation 03/13/24 Hospital Course Operations None Procedures EGD Summary of Care Provided Minutes Spent on Discharge: 15 Hospital Course: 88 year old male with below past medical history hospitalized for acute respiratory failure 2/2 Haemophilus influenzae pneumonia, complicated by atrial fibrillation with rapid ventricular response, acute kidney injury, admitted to TCU with debility, here for rehabilitation, strengthening, prior to discharge home with . 03/09/2024 Friend EGD: Impressions : - Low-grade of narrowing Schatzki ring. Biopsied. Dilated. - Small hiatal hernia. - No gross lesions in the entire stomach. - Oozing duodenal ulcers with a visible vessel. Treated with argon plasma coagulation (APC). Clips were placed. Clip operations boardman: [email or web address]. 03/13/2024 Resident weaker than usual with therapy. History of atrial fibrillation, heart rate variable between 50 to 130. EKG showed atrial fibrillation, but consider lateral ischemia. Resident appeared unwell. Discharge to [facility] ED 03/13/2024 for evaluation, possible admission to [facility]. Medical Records Data Medical Nutrition Assessment Dietitian: Malnutrition Criteria Met Start: 03/07/24 13:31 Freq: Status: Active Protocol: Document 03/07/24 13:31 SLA (Rec: 03/07/24 13:31 SLA [id number]) Nutrition Malnutrition Evidence of Malnutrition Exists Yes Malnutrition (severe): Acute Illness/Injury Evidenced By Suboptimal Energy Intake ( Severe),Weight Loss (Severe) Clinical Problem Biting/Chewing Difficulty Etiology related to need for dysphagia Signs/Symptoms as evidenced by need for modified consistency diet Status Active Problem Acute Disease or Injury Related Malnutrition Etiology related to acute illness and suboptimal nutrition intake Signs/Symptoms as evidenced by po intake meeting <50% and ~ 5% 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 Weight / BMI Weight Weight: 71.356 kg Body Mass Index (BMI) 19.1 ABG / Lab / Microbiology Data 03/13/24 13:12 03/13/24 13:12 Laboratory: Laboratory Results - last 24 hr 03/13/24 13:12: WBC 11.0, RBC 3.17 L, Hgb 10.0 L, Hct 31.2 L, MCV 98.4 H, MCH 31.5, MCHC 32.1, RDW Std Deviation 59.5 H, RDW Coeff of Dominick 17.3 H, Plt Count 201, MPV 12.4 H, Immature Gran % (Auto) 2.100 H, Neut % (Auto) 89.7 H, Lymph % (Auto) 3.6 L, [place] % (Auto) 4.0, Eos % (Auto) 0.4, Baso % (Auto) 0.2, Absolute Neuts (auto) 9.8 H, Absolute Lymphs (auto) 0.40 L, Nucleated RBC % 0, Sodium 139, Potassium 4.4, Chloride 112 H, Carbon Dioxide 19.0 L, Anion Gap 8, BUN 48 H, Creatinine 1.72 H, Estim Creat Clear Calc 31.45, Est GFR (MDRD) Af Amer 49 L, Est GFR (MDRD) Non-Af 40 L, BUN/Creatinine Ratio 27.9 H, Glucose 122 H, Calcium 8.3 L D/C Instructions Discharge Diet: No restrictions Discharge Activity: Return to Normal Activity, May Shower and Use Walker Weight Bearing Status: Weight bearing as tolerated Call your doctor if you observe: Fever of 101 or Higher, Inability to urinate, Inability to have a bowel movement, Shortness of breath, Dizziness, Fainting spells, Swelling in the ankles, Chest pain and Uncontrolled pain DC O2, CPAP, BIPAP Needs Home O2 Discharge instructions: No Additional Instructions: Discharge to [facility] ED 03/13/2024 for evaluation, possible admission to [facility]. Meaningful Use Info Meaningful Use Meaningful Use Diagnoses (Choose all that apply): None applicable Ischemic Stroke Statin Dosing Therapy Reference: STATIN DOSE THERAPY REFERENCE: * Patients > 75 years receive moderate or high dose statin therapy. * Patients 75 years or YOUNGER should receive HIGH intensity statin dose unless contraindicated. You will be required to document reason for non-treatment if statin daily dose does not meet guidelines. HIGH DOSE STATIN THERAPY DAILY Atorvastatin > than or = to 40 mg Rosuvastatin > than or = to 20 mg Amlodipine + Atorvastatin > than or = to 2.5/40 mg Ezetimibe + Simvastatin 10/80 mg Simvastatin 80mg Discharge Plan Admission Admit Date/Time: 03/06/24 16:42 Primary Reason for Your Visit: Debility. Attending Provider: Bishop Anderson Chi Primary Care Provider: Santino Long Instructions Additional Instructions / Restrictions: Discharge to [facility] ED 03/13/2024 for evaluation, possible admission to [facility]. Discharge Orders/Prescriptions Prescriptions: No Action (DME) Handicap Placard See Rx Instructions .Route .MEDSUPPLY Qty: 1 0RF Rx Instructions: Good from 09/17/22-09/18/2027 albuterol sulfate [Ventolin HFA] 90 mcg/actuation HFA aerosol inhaler 2 puff INHALATION Q4H PRN (Reason: wheezing) metoprolol succinate 100 mg Tablet Extended Release 24 Hr 100 mg PO DAILY Qty: 0 0RF budesonide 0.5 mg/2 mL Suspension For Nebulization 0.5 mg inhalation BID.RT Qty: 0 0RF hydroxychloroquine 200 mg Tablet 200 mg PO Meza@0800 Qty: 0 0RF hydroxychloroquine 200 mg Tablet 400 mg PO MoTuWeThFrSa@0800 Qty: 0 0RF alum-mag hydroxide-simeth [Mag-Al Plus Extra Strength] 400-400-40 mg/5 mL Suspension 30 ml PO Q6H PRN PRN (Reason: Gastric Burning) Qty: 0 0RF bupropion HCl 150 mg Tablet Extended Release 24 Hr 150 mg PO DAILY Qty: 0 0RF mesalamine 1.2 gram Tablet,Delayed Release (Dr/Ec) 2.4 g PO DAILY Qty: 0 0RF menthol-zinc oxide [Calmoseptine] 0.44-20.6 % Ointment 1 applic topical BID Qty: 0 0RF Protocol: *Topical Application Instructions APPLICATION INSTRUCTIONS: buttocks acetaminophen 500 mg capsule 1,000 mg PO Q6H PRN (Reason: pain) sennosides-docusate sodium [Stimulant Laxative Plus] 8.6-50 mg Tablet 2 tab PO Q6H PRN PRN (Reason: Constipation) nystatin [Nyamyc] 100,000 unit/gram Powder 1 applic topical BID Protocol: *Topical Application Instructions APPLICATION INSTRUCTIONS: apply to abd folds/groin Eliquis 5 mg Tablet 5 mg PO BID Referrals / Follow Up: Santino Long MD [Primary Care Provider] - Disposition Disposition (needs filled in before D/C Order can be placed): Acute Care Hospital [facility]
--- NOTE | 2024-03-19 09:33 | MDS.RN ---
Information for the MDS was obtained from review of the clinical record, interview of resident, staff, and direct observation of resident?s care.
== END 2024-03-13 20:05 | disposition short-term general hospital (02) | DRG 193 ==
PROVIDERS: Admitting Provider Family Medicine Geriatric Medicine; PCP Internal Medicine; Referring Provider Family Medicine Geriatric Medicine; Visit Provider Family Medicine Geriatric Medicine
DX: J14 Pneumonia due to Hemophilus influenzae (principal); K26.4 Chronic or unspecified duodenal ulcer with hemorrhage; I42.9 Cardiomyopathy, unspecified; J44.0 Chronic obstructive pulmonary disease with (acute) lower respiratory infection; I13.0 Hypertensive heart and chronic kidney disease with heart failure and stage 1 through stage 4 chronic kidney disease, or unspecified chronic kidney disease; I50.22 Chronic systolic (congestive) heart failure; B35.4 Tinea corporis; I25.10 Atherosclerotic heart disease of native coronary artery without angina pectoris; I48.91 Unspecified atrial fibrillation; N18.30 Chronic kidney disease, stage 3 unspecified; M06.9 Rheumatoid arthritis, unspecified; F32.A Depression, unspecified; K52.9 Noninfective gastroenteritis and colitis, unspecified; K44.9 Diaphragmatic hernia without obstruction or gangrene; Z87.891 Personal history of nicotine dependence; N40.0 Benign prostatic hyperplasia without lower urinary tract symptoms; Z79.899 Other long term (current) drug therapy; Z79.01 Long term (current) use of anticoagulants; Z79.52 Long term (current) use of systemic steroids; R13.10 Dysphagia, unspecified; Z79.51 Long term (current) use of inhaled steroids
CPT/HCPCS: 36415; 80048; 85025; 92507; 92523; 92526; 92610; 93005; 94640; 97110; 97162; 97166; 97530; 97535; 97802; A4216

== ENCOUNTER 2024-03-09 10:35 | Day surgery (SDC) | payer MEDICARE, BC, SELFPAY ==
--- NOTE | 2024-03-08 16:44 | PAT.ANE_ITS ---
Pre-Assessment Diagnosis/Proposed Procedure Planned Operative Procedure(s): EGD Anesthesia History Anesthesia History - project design engineer: Anesthesia History - project design engineer Hx Hospitalization Yes: DOUBLE PNEUMONIA/COVID 03/08/24 15:42 02/27/24 Any Problems With Anesthesia No 03/08/24 15:42 Cholinesterase deficiency No 03/08/24 15:42 You/Your Family Experience No 03/08/24 15:42 fever (hyperthermia) with Relationship Recent Exposure to Contagious Disease Does patient have nerve No 03/08/24 15:42 stimulator Patient instructed to have device shut off --Does patient have Pacemaker or ICD? When Was Last Pacemaker Check QUESTION #4 FULL TEXT: You/Your Family Experience fever (hyperthermia) with Anesthesia Last Oral Intake Last Oral intake: Last Oral Intake NPO since Meds taken in AM with sips of water? Meds patient instructed to take am of surgery PONV PONV - project design engineer: PONV - project design engineer Female No 03/08/24 15:42 HX of Motion Sickness No 03/08/24 15:42 HX of N/V After Surgery No 03/08/24 15:42 Non-Smoker Yes 03/08/24 15:42 Duration of Surgery greater No 03/08/24 15:42 than 60 minutes Number of Risk Factors 1 03/08/24 15:42 PONV Score Low Risk 03/08/24 15:42 Height & Weight Height & Weight: Anesthesia: Height & Weight Height 6 ft 4 in 03/07/24 13:20 Respiratory Assessment Respiratory Assessment - project design engineer: Respiratory Tract Infection Hx - project design engineer Hx Respiratory Tract Infection Yes: PNEUMONIA COVID 03/08/24 15:42 STOP Sleep Apnea STOP Sleep Apnea - project design engineer: STOP Sleep Apnea - project design engineer Hx Hypertension Yes: CONTROLLED WITH MEDS 03/08/24 15:42 Hx Sleep Apnea No 03/08/24 15:42 CPAP No 03/06/24 18:22 BIPAP No 03/06/24 18:22 Do you snore loudly (louder Yes 03/08/24 15:42 than talking or can be heard Do you often feel tired/ Yes 03/08/24 15:42 fatigued/ sleepy during daytime? Has anyone observed you stop Yes 03/08/24 15:42 breathing during sleep? STOP Results Positive 03/08/24 15:42 QUESTION #5 FULL TEXT : Do you snore loudly (louder than talking or can be heard through closed doors)? Tobacco Use History Tobacco Use History - project design engineer: Tobacco Use History - project design engineer Tobacco Use Smoking Status Former smoker 03/08/24 15:42 Hx Tobacco Use No 03/08/24 15:42 Years Smoking Packs Smoked per Day Smoking Cessation Date was No - quit smoking greater 03/08/24 15:42 within the last 15 years than 15 years ago Hx Smoking Cessation Date Hx Smoking Cessation No 03/08/24 15:42 Counseling Hematologic Medial History Hematologic Hx - project design engineer: Hematologic Medical Hx - supervisor cooler service Hx of Blood Transfusion No 03/08/24 15:42 Hx of Transfusion in last 3 No 03/08/24 15:42 Months Date of Last Transfusion (if within last 3 months) Ever experience any problems No 03/08/24 15:42 with transfusion(s)? Specify any problems Hx of Preganancy in last 3 N/A 03/08/24 15:42 Months Nurse Filling Out Transfusion DSCHRIBER 03/08/24 15:42 & Questions: Date: 03/08/24 03/08/24 15:42 Time: 15:44 03/08/24 15:42 Patient unable to answer at this time (ie. confused, unrespo /Reproduction History /Reproductive History - project design engineer: /Reproductive Hx- project design engineer Hx Now No 03/08/24 15:42 Gestational Age (in weeks): EDC: Hx Hx Para Hx Section SAB No 03/08/24 15:42 PFSH Medical History (Updated 03/08/24 @ 15:57 by Bonnie Finnegan) COPD (chronic obstructive pulmonary disease) Wears hearing aid Alcohol use Skin tear Walker as ambulation aid History of renal disease Back pain TIA (transient ischemic attack) Dietary restriction Difficulty swallowing On home oxygen therapy Shortness of breath on exertion History of echocardiogram History of stress test Cardiology follow-up encounter Pneumonia Former tobacco use CAD (coronary artery disease) Atrial fibrillation/flutter CKD (chronic kidney disease), stage III Anticoagulated 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 Cardiomyopathy Lung nodules BPH (benign prostatic hyperplasia) Rheumatoid arthritis Essential hypertension Hypertension HTN (hypertension) Colitis Home Medications ?Medication ?Instructions ?Recorded ?Last Taken ?Type Handicap Placard #1 ea 09/17/22 Unknown Rx dapagliflozin propanediol 10 mg 10 mg PO DAILY DIABETES #30 tabs 08/23/23 02/27/24 Rx tablet (Farxiga) amoxicillin 875 mg-potassium 1 tab PO BID Antibiotic #10 tabs 02/24/24 02/27/24 Rx clavulanate 125 mg tablet albuterol sulfate 90 mcg/actuation 2 puff inhalation Q4H PRN wheezing 02/27/24 Unknown History aerosol inhaler (Ventolin HFA) acetaminophen 325 mg tablet 650 mg (2 x 325 mg) PO Q4H PRN PRN 03/06/24 Unknown Rx Fever, pain 1-11/30 #0 tabs albuterol sulfate 2.5 mg/3 mL 2.5 mg (3 mL) inhalation Q2H PRN 03/06/24 Unknown Rx (0.083 %) solution for nebulization PRN Dyspnea, wheezing #0 mL aluminum-mag hydroxide-simethicone 30 ml PO Q6H PRN PRN Gastric 03/06/24 Unknown Rx 400 mg-400 mg-40 mg/5 mL oral susp Burning #0 mL (Mag-Al Plus Extra Strength) apixaban 5 mg tablet (Eliquis) 2.5 mg (1/2 x 5 mg) PO BID Blood 03/06/24 Unknown Rx Thinner #0 tabs budesonide 0.5 mg/2 mL suspension 0.5 mg (2 mL) inhalation BID.RT 03/06/24 Unknown Rx for nebulization SOB #0 mL bupropion HCl 150 mg 24 hr tablet, 150 mg PO DAILY Mood #0 tabs 03/06/24 Unknown Rx extended release hydroxychloroquine 200 mg tablet 200 mg PO Meza@0800 Rheumatoid 03/06/24 Unknown Rx Arthritis #0 tabs hydroxychloroquine 200 mg tablet 400 mg (2 x 200 mg) PO 03/06/24 Unknown Rx MoTuWeThFrSa@0800 Rheumatoid Arthritis #0 tabs menthol 0.44 %-zinc oxide 20.6 % 1 applic topical BID Skin 03/06/24 Unknown Rx topical ointment (Calmoseptine) Irritation #0 grams mesalamine 1.2 gram tablet,delayed 2.4 g (2 x 1.2 gram) PO DAILY 03/06/24 Unknown Rx release Ulcerative colitis #0 tabs metoprolol succinate 100 mg 100 mg PO DAILY BP #0 tabs 03/06/24 Unknown Rx tablet,extended release 24 hr nystatin 100,000 unit/gram topical 1 applic topical TID Skin 03/06/24 Unknown Rx powder (Neamy) Irritation #0 grams prednisone 20 mg tablet 40 mg (2 x 20 mg) PO BREAKFAST 03/06/24 Unknown Rx Inflammation #0 tabs sennosides 8.6 mg-docusate sodium 2 tab PO BID PRN PRN Constipation 03/06/24 Unknown Rx 50 mg tablet (Stimulant Laxative #0 tabs Plus) Allergy/AdvReac Type Severity Reaction Status Date / Time etanercept (From Enbrel) AdvReac Rash Verified 03/08/24 15:41 Family History Mother Diabetes CAD (coronary artery disease) Myocardial infarction, Onset Age: 82 Father CAD (coronary artery disease) Brother CAD (coronary artery disease) Hypertension Surgical History (Updated 03/08/24 @ 15:55 by Bonnie Finnegan) History of cardiac catheterization History of cardioversion History of bilateral cataract extraction History of foot surgery History of hernia repair History of arthroscopy of knee History of bilateral knee replacement Social History household members: spouse housing: house Smoking Status: Former smoker how long ago did patient quit smokin years ago alcohol intake: current alcohol intake frequency: 0-2 drinks per day Alcohol type: beer details: wine substance use type: does not use caffeine: Yes Type: coffee Number of servings: 2 Audit: Pertinent Findings Pertinent Findings EKG Perinent findings: 03/03/2024 atrial fibrillation rate 99 bpm nonspecific intraventricular conduction block T wave abnormality consider lateral ischemia EKG 02/27/2024 shows atrial fibrillation rate of [address] and T wave abnormality consider lateral ischemia no apparent change on the T wave abnormality over the series of EKGs from January through early February Echo (EF%) pertinent findings: 08/19/2023 EF 50% pulmonary artery pressure 45 mmHg Consult pertinent findings: Cardiology 11/22/2023 cardiomyopathy acute EF 35% nonischemic cardiomyopathy catheterization 08/26/2022 showed severe single-vessel posterior descending artery disease atrial fibrillation on anticoagulation hypertension continue risk factor modification lifestyle modification Recommendation Anesthesia Recommendation Anesthesia recommendation: OPTIMIZED for anesthesia
[2024-03-09] VITALS (9 sets, daily range): BP systolic 78–109; BP diastolic 62–82; PULSE 95–110; RESP 16–20; TEMP 35.8–36.4; O2SAT 94–97; BMI 19.7
--- NOTE | 2024-03-09 11:45 | EGD_PTH ---
PATIENT: LUCINDA HERNANDEZ LOC: EN U#:[id number] AGE/SX: 88/M ROOM: RE03/09/[address]: Dr. Jethro Lucia DO : 1935 BED: DIS: 03/09/2024 SPEC #: [id number] RECD: 03/09/24 13:55 STATUS: CRISTY ASHLYN #: [id number] JOSÉ ANTONIO: 03/09/24 11:[address]: Jethro Lucia DEPT: SURGICAL PATHOLOGY RECD BY: Kwabena Franco ENTERED: 03/09/24 14:50 SP TYPE: EGD BIOPSY OTHR DR: Dr. Santino Long MD Tissues: Esophageal mucous membrane Procedures: Surgery Specimen Level IV HEADER OPERATION: EGD with clip application, apc cautery, esophageal dilation PRE-OP DIAGNOSIS: Dysphagia TISSUE SUBMITTED: Random esophageal biopsies MICROSCOPIC DIAGNOSIS Esophageal biopsies: Fragments of benign squamous epithelium. SJ.mr 03/12/2024 MICROSCOPIC DESCRIPTION Slides are reviewed. GROSS DESCRIPTION Received in fixative is one container labeled with the patient's name and designated Random esophageal biopsy. The specimen consists of two irregular fragments of light mitchell soft tissue that in aggregate measure 0.8 x 0.3 x 0.2 cm. The specimen is totally submitted in one cassette. LINAlbin 03/09/2024 TC:5 CPT:41687
--- NOTE | 2024-03-09 12:02 | PRE.ANES_ITS ---
ASA Classification* ASA Classification ASA Classification: 3 Assessment & Plan Anesthesia* Anesthesia Assessment Anesthesia Assessment: Discussed sedation and/or anesthesia options, risks, benefits, and alternatives with patient/parents/legal guardian/POA. Questions invited. The patient/parents/legal guardian/POA seems to understand and agrees to proceed with anesthesia plan. Reviewed the physical assessment, medical history, allergy history and patient home medications list prior to surgery/procedure/anesthetic and documented any changes. Performed airway and anesthesia risk assessments. Anesthesia Type Anesthesia Type: MAC History Source History Obtained from:: Patient and Chart Anesthesia Focused Assessment* Temperature: 96.5 F Pulse Rate: 95 Blood Pressure: 97/82 Respiratory Rate: 20 Pulse Ox: 96 Oxygen Delivery Method: Nasal Cannula Oxygen Flow Rate (L/min): 3 Airway Assessment Mouth opens: 2 cm Mallampati Score: IV Teeth Condition: Intact Neck Range of motion (ROM): Limited ROM Focused Labs Anesthesia Preop lab: CBC WBC 16.5 K/mm3 (4.4-11.0) H 03/07/24 05:15 RBC 4.08 M/mm3 (4.6-6.2) L 03/07/24 05:15 Hgb 12.1 g/dL (13.0-16.5) L 03/07/24 05:15 Hct 38.3 % (40-54) L 03/07/24 05:15 Plt Count 320 K/mm3 (150-450) 03/07/24 05:15 CHEMISTRY Potassium 3.8 mmol/L (3.5-5.1) 03/07/24 05:15 Sodium 144 mmol/L (136-145) 03/07/24 05:15 Magnesium 2.6 mg/dL (1.6-2.6) 02/27/24 19:29 BUN 57 mg/dL (7-18) H 03/07/24 05:15 Creatinine 1.37 mg/dL (0.70-1.30) H 03/07/24 05:15 Glucose 107 mg/dL (74-106) H 03/07/24 05:15 POC Glucose 109 mg/dL (74-106) H 09/02/22 16:50 TSH 2.84 uIU/mL (0.358-3.74) 08/06/22 12:22 COAG PT 24.6 SECONDS (11.7-14.9) H 02/19/24 09:10 Pre-Assessment Diagnosis/Proposed Procedure Planned Operative Procedure(s): EGD Anesthesia History Anesthesia History - mold injector: Anesthesia History - mold injector Hx Hospitalization Yes: DOUBLE PNEUMONIA/COVID 03/08/24 15:42 02/27/24 Any Problems With Anesthesia No 03/08/24 15:42 Cholinesterase deficiency No 03/08/24 15:42 You/Your Family Experience No 03/08/24 15:42 fever (hyperthermia) with Relationship Recent Exposure to Contagious Disease Does patient have nerve No 03/08/24 15:42 stimulator Patient instructed to have device shut off --Does patient have Pacemaker No 03/09/24 10:54 or ICD? When Was Last Pacemaker Check QUESTION #4 FULL TEXT: You/Your Family Experience fever (hyperthermia) with Anesthesia Last Oral Intake Last Oral intake: Last Oral Intake NPO since 18:00 03/09/24 10:54 Meds taken in AM with sips of water? Meds patient instructed to take am of surgery PONV PONV - mold injector: PONV - mold injector Female No 03/08/24 15:42 HX of Motion Sickness No 03/08/24 15:42 HX of N/V After Surgery No 03/08/24 15:42 Non-Smoker Yes 03/08/24 15:42 Duration of Surgery greater No 03/08/24 15:42 than 60 minutes Number of Risk Factors 1 03/08/24 15:42 PONV Score Low Risk 03/08/24 15:42 Height & Weight Height & Weight: Anesthesia: Height & Weight Height 6 ft 4 in 03/09/24 10:54 Weight: 73.482 kg 03/09/24 10:54 Body Mass Index (BMI) 19.7 03/09/24 10:54 Respiratory Assessment Respiratory Assessment - mold injector: Respiratory Tract Infection Hx - mold injector Hx Respiratory Tract Infection Yes: PNEUMONIA COVID 03/08/24 15:42 Any additional information?: Yes Hx Respiratory Tract Infection: Yes (Patient had double pneumonia February 27, 2024. Patient has completed a cour) STOP Sleep Apnea STOP Sleep Apnea - mold injector: STOP Sleep Apnea - mold injector Hx Hypertension Yes: CONTROLLED WITH MEDS 03/08/24 15:42 Hx Sleep Apnea No 03/08/24 15:42 CPAP No 03/06/24 18:22 BIPAP No 03/06/24 18:22 Do you snore loudly (louder Yes 03/08/24 15:42 than talking or can be heard Do you often feel tired/ Yes 03/08/24 15:42 fatigued/ sleepy during daytime? Has anyone observed you stop Yes 03/08/24 15:42 breathing during sleep? STOP Results Positive 03/08/24 15:42 QUESTION #5 FULL TEXT : Do you snore loudly (louder than talking or can be heard through closed doors)? Tobacco Use History Tobacco Use History - mold injector: Tobacco Use History - mold injector Tobacco Use Smoking Status Former smoker 03/08/24 15:42 Hx Tobacco Use No 03/08/24 15:42 Years Smoking Packs Smoked per Day Smoking Cessation Date was No - quit smoking greater 03/08/24 15:42 within the last 15 years than 15 years ago Hx Smoking Cessation Date Hx Smoking Cessation No 03/08/24 15:42 Counseling Hematologic Medial History Hematologic Hx - mold injector: Hematologic Medical Hx - investigator claims Hx of Blood Transfusion No 03/08/24 15:42 Hx of Transfusion in last 3 No 03/08/24 15:42 Months Date of Last Transfusion (if within last 3 months) Ever experience any problems No 03/08/24 15:42 with transfusion(s)? Specify any problems Hx of Preganancy in last 3 N/A 03/08/24 15:42 Months Nurse Filling Out Transfusion DSCHRIBER 03/08/24 15:42 & Questions: Date: 03/08/24 03/08/24 15:42 Time: 15:44 03/08/24 15:42 Patient unable to answer at this time (ie. confused, unrespo /Reproduction History /Reproductive History - mold injector: /Reproductive Hx- mold injector Hx Now No 03/08/24 15:42 Gestational Age (in weeks): EDC: Hx Hx Para Hx Section SAB No 03/08/24 15:42 PFSH Medical History COPD (chronic obstructive pulmonary disease) Wears hearing aid Alcohol use Skin tear Walker as ambulation aid History of renal disease Back pain TIA (transient ischemic attack) Dietary restriction Difficulty swallowing On home oxygen therapy Shortness of breath on exertion History of echocardiogram History of stress test Cardiology follow-up encounter Pneumonia Former tobacco use CAD (coronary artery disease) Atrial fibrillation/flutter CKD (chronic kidney disease), stage III Anticoagulated 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 Cardiomyopathy Lung nodules BPH (benign prostatic hyperplasia) Rheumatoid arthritis Essential hypertension Hypertension HTN (hypertension) Colitis Home Medications ?Medication ?Instructions ?Recorded ?Last Taken ?Type Handicap Placard #1 ea 09/17/22 Unknown Rx dapagliflozin propanediol 10 mg 10 mg PO DAILY DIABETES #30 tabs 08/23/23 02/27/24 Rx tablet (Farxiga) amoxicillin 875 mg-potassium 1 tab PO BID Antibiotic #10 tabs 02/24/24 02/27/24 Rx clavulanate 125 mg tablet albuterol sulfate 90 mcg/actuation 2 puff inhalation Q4H PRN wheezing 02/27/24 Unknown History aerosol inhaler (Ventolin HFA) acetaminophen 325 mg tablet 650 mg (2 x 325 mg) PO Q4H PRN PRN 03/06/24 Unknown Rx Fever, pain -11/30 #0 tabs albuterol sulfate 2.5 mg/3 mL 2.5 mg (3 mL) inhalation Q2H PRN 03/06/24 Unknown Rx (0.083 %) solution for nebulization PRN Dyspnea, wheezing #0 mL aluminum-mag hydroxide-simethicone 30 ml PO Q6H PRN PRN Gastric 03/06/24 Unknown Rx 400 mg-400 mg-40 mg/5 mL oral susp Burning #0 mL (Mag-Al Plus Extra Strength) apixaban 5 mg tablet (Eliquis) 2.5 mg (1/2 x 5 mg) PO BID Blood 03/06/24 03/08/24 Rx Thinner #0 tabs budesonide 0.5 mg/2 mL suspension 0.5 mg (2 mL) inhalation BID.RT 03/06/24 Unknown Rx for nebulization SOB #0 mL bupropion HCl 150 mg 24 hr tablet, 150 mg PO DAILY Mood #0 tabs 03/06/24 Unknown Rx extended release hydroxychloroquine 200 mg tablet 200 mg PO Meza@0800 Rheumatoid 03/06/24 Unknown Rx Arthritis #0 tabs hydroxychloroquine 200 mg tablet 400 mg (2 x 200 mg) PO 03/06/24 03/09/24 Rx MoTuWeThFrSa@0800 Rheumatoid Arthritis #0 tabs menthol 0.44 %-zinc oxide 20.6 % 1 applic topical BID Skin 03/06/24 Unknown Rx topical ointment (Calmoseptine) Irritation #0 grams mesalamine 1.2 gram tablet,delayed 2.4 g (2 x 1.2 gram) PO DAILY 03/06/24 Unknown Rx release Ulcerative colitis #0 tabs metoprolol succinate 100 mg 100 mg PO DAILY BP #0 tabs 03/06/24 03/09/24 08:15 Rx tablet,extended release 24 hr nystatin 100,000 unit/gram topical 1 applic topical TID Skin 03/06/24 Unknown Rx powder (Nyamyc) Irritation #0 grams prednisone 20 mg tablet 40 mg (2 x 20 mg) PO BREAKFAST 03/06/24 03/09/24 Rx Inflammation #0 tabs sennosides 8.6 mg-docusate sodium 2 tab PO BID PRN PRN Constipation 03/06/24 Unknown Rx 50 mg tablet (Stimulant Laxative #0 tabs Plus) Allergy/AdvReac Type Severity Reaction Status Date / Time etanercept (From Enbrel) AdvReac Rash Verified 03/09/24 10:54 Family History Mother Diabetes CAD (coronary artery disease) Myocardial infarction, Onset Age: 82 Father CAD (coronary artery disease) Brother CAD (coronary artery disease) Hypertension Surgical History History of cardiac catheterization History of cardioversion History of bilateral cataract extraction History of foot surgery History of hernia repair History of arthroscopy of knee History of bilateral knee replacement Social History household members: spouse housing: house Smoking Status: Former smoker how long ago did patient quit smokin years ago alcohol intake: current alcohol intake frequency: 0-2 drinks per day Alcohol type: beer details: wine substance use type: does not use caffeine: Yes Type: coffee Number of servings: 2 Review of Systems (Anesthesia) ROS Narrative System reviewed and no additional complaints, except as documented.
--- NOTE | 2024-03-09 12:33 | HP.PCM_ITS ---
HPI - General General Date of Admission: 03/09/24 Date of Service: 03/09/24 Chief Complaint: dysphagia HPI Narrative LUCINDA HERNANDEZ, is a 88 y/o M w/ PMHx: CAD, recently discharged on 02/24/24 following evaluation and treatment of hypoxia secondary to recent COVID-19 infection with superimposed H. influenzae pneumonia treated inpatient with IV Rocephin and IV azithromycin discharged on oral Augmentin weaned off of oxygen with initial recommendation for transitional care unit. However, patient and family deferred and transition to home now representing to the [facility] ED in 02/27/2024 with progressively worsening increased fatigue, malaise, difficulty performing simple activities at home with onset of more dyspnea with exertion with first PT aggressive therapy on day of presentation with noted hypoxia at that time prompting referral to the ED to be cautious. He was diagnosed with multifocal pneumonia and started on steroids with broad- spectrum antibiotics. Patient did well and was able to be sent back to transitional care unit for rehabilitation prior to discharge. He had been having decreasing appetite along with some esophageal dysphagia and coughing after eating so speech therapy was consulted to see the patient. He was identified as having oropharyngeal and esophageal dysphagia. Therefore I was consulted to see the patient. He said this has been going on approximately 6 months where he has been having trouble swallowing solids more than liquids. He does a lot of throat clearing. He does have some nausea. He is down for an upper endoscopy today. 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 Cardiomyopathy Lung nodules BPH (benign prostatic hyperplasia) Rheumatoid arthritis Essential hypertension Hypertension HTN (hypertension) Colitis Home Medications ?Medication ?Instructions ?Recorded ?Last Taken ?Type Handicap Placard #1 ea 09/17/22 Unknown Rx dapagliflozin propanediol 10 mg 10 mg PO DAILY DIABETES #30 tabs 08/23/23 02/27/24 Rx tablet (Farxiga) amoxicillin 875 mg-potassium 1 tab PO BID Antibiotic #10 tabs 02/24/24 02/27/24 Rx clavulanate 125 mg tablet albuterol sulfate 90 mcg/actuation 2 puff inhalation Q4H PRN wheezing 02/27/24 Unknown History aerosol inhaler (Ventolin HFA) acetaminophen 325 mg tablet 650 mg (2 x 325 mg) PO Q4H PRN PRN 03/06/24 Unknown Rx Fever, pain -11/30 #0 tabs albuterol sulfate 2.5 mg/3 mL 2.5 mg (3 mL) inhalation Q2H PRN 03/06/24 Unknown Rx (0.083 %) solution for nebulization PRN Dyspnea, wheezing #0 mL aluminum-mag hydroxide-simethicone 30 ml PO Q6H PRN PRN Gastric 03/06/24 Unknown Rx 400 mg-400 mg-40 mg/5 mL oral susp Burning #0 mL (Mag-Al Plus Extra Strength) apixaban 5 mg tablet (Eliquis) 2.5 mg (1/2 x 5 mg) PO BID Blood 03/06/24 03/08/24 Rx Thinner #0 tabs budesonide 0.5 mg/2 mL suspension 0.5 mg (2 mL) inhalation BID.RT 03/06/24 Unknown Rx for nebulization SOB #0 mL bupropion HCl 150 mg 24 hr tablet, 150 mg PO DAILY Mood #0 tabs 03/06/24 Unknown Rx extended release hydroxychloroquine 200 mg tablet 200 mg PO Meza@0800 Rheumatoid 03/06/24 Unknown Rx Arthritis #0 tabs hydroxychloroquine 200 mg tablet 400 mg (2 x 200 mg) PO 03/06/24 03/09/24 Rx MoTuWeThFrSa@0800 Rheumatoid Arthritis #0 tabs menthol 0.44 %-zinc oxide 20.6 % 1 applic topical BID Skin 03/06/24 Unknown Rx topical ointment (Calmoseptine) Irritation #0 grams mesalamine 1.2 gram tablet,delayed 2.4 g (2 x 1.2 gram) PO DAILY 03/06/24 Unknown Rx release Ulcerative colitis #0 tabs metoprolol succinate 100 mg 100 mg PO DAILY BP #0 tabs 03/06/24 03/09/24 08:15 Rx tablet,extended release 24 hr nystatin 100,000 unit/gram topical 1 applic topical TID Skin 03/06/24 Unknown Rx powder ([facility]) Irritation #0 grams prednisone 20 mg tablet 40 mg (2 x 20 mg) PO BREAKFAST 03/06/24 03/09/24 Rx Inflammation #0 tabs sennosides 8.6 mg-docusate sodium 2 tab PO BID PRN PRN Constipation 03/06/24 Unknown Rx 50 mg tablet (Stimulant Laxative #0 tabs Plus) Allergy/AdvReac Type Severity Reaction Status Date / Time etanercept (From Enbrel) AdvReac Rash Verified 03/09/24 10:54 Family History Mother Diabetes CAD (coronary artery disease) Myocardial infarction, Onset Age: 82 Father CAD (coronary artery disease) Brother CAD (coronary artery disease) Hypertension Surgical History History of cardiac catheterization History of cardioversion History of bilateral cataract extraction History of foot surgery History of hernia repair History of arthroscopy of knee History of bilateral knee replacement Social History household members: spouse housing: house Smoking Status: Former smoker how long ago did patient quit smokin years ago alcohol intake: current alcohol intake frequency: 0-2 drinks per day Alcohol type: beer details: wine substance use type: does not use caffeine: Yes Type: coffee Number of servings: 2 ROS Constitutional Constitutional: Denies fatigue, fever(s), poor appetite, weight gain or weight loss Gastrointestinal Gastrointestinal: Denies belching, bloating, change in bowel habits, change in stool character, chewing difficulty, coffee ground emesis, constipation, cramping, diarrhea, dyspepsia, dysphagia, early satiety, excessive flatus, fecal incontinence, heartburn, hematemesis, hematochezia, hemorrhoids, loose stools, melena, nausea, odynophagia, rectal bleeding, tenesmus, vomiting or weight changes Vital Signs Vital Signs Vital Signs: 03/09/24 10:54 03/09/24 10:54 03/09/24 12:10 Temperature 96.5 F L 96.5 F L Temperature Source Temporal Pulse Rate 95 95 Respiratory Rate 20 H 20 H Respiratory Pattern Normal Blood Pressure 97/82 H 97/82 H Blood Pressure Mean 87 Blood Pressure Source Monitor Blood Pressure Position Semi-Fowlers Blood Pressure Location Left Arm Pulse Ox 96 96 Oxygen Delivery Method Nasal Cannula Nasal Cannula Oxygen Flow Rate (L/min) 2 3 Weight Weight: 162 lb Body Mass Index (BMI) 19.7 Physical Exam Const alert, oriented x3, no apparent distress and healthy appearing General Appearance: cooperative GI normal to inspection, nondistended, normoactive bowel sounds, soft to palpation, non-tender and non-distended Percussion: normal to percussion Rectal Exam: deferred Assessment & Plan Assessment/Plan (1) Difficulty swallowing: PLAN: Differential diagnosis for his esophageal dysphagia does include poor dentition, esophageal motility disorder such as achalasia, pseudo achalasia, structural problem such as eosinophilic esophagitis, Schatzki's ring. Also differential diagnosis includes erosive esophagitis, esophageal diverticulum, paraneoplastic syndromes. He will undergo an upper endoscopy and possible esophageal manometry. He was explained alternatives, risk and benefits include not withstanding bleeding, infection, sepsis, perforation, need for emergent urgent . He will have an ASA of 3.
--- NOTE | 2024-03-09 13:14 | PCM.POST.ANE ---
Anesthesia: Postop Eval I Current Vital Signs Temperature: 97.5 F Pulse Rate: 104 Blood Pressure: 78/62 Respiratory Rate: 18 Pulse Ox: 95 Oxygen Delivery Method: Nasal Cannula Oxygen Flow Rate (L/min): 2 Assessment Airway patent: Yes Spontaneous unlabored respirations: Yes Mental status: Asleep (with 90mm OA) nausea: No Vomiting: No Anesthesia Complication: No Fluid Hydration Crystalloid volume administer (ml): 30 Total IV fluid infused: 30 Progress Note Anesthesia document: Postop Eval 1 completed: Yes
--- NOTE | 2024-03-09 14:05 | OP.EGD_ITS ---
Patient Name: John Arrieta Procedure Date: 03/09/2024 12:33 PM Date of : 1935 Age: 88 Procedure: Upper GI endoscopy Indications: Dysphagia Providers: Jethro Lucia DO Medicines: Monitored Anesthesia Care Patient Profile: This is an 88 year old male. Refer to note in patient chart for documentation of history and physical. Patient has symptoms of acute dysphagia. Complications: No immediate complications. Procedure: Pre-Anesthesia Assessment: - Prior to the procedure, a History and Physical was performed, and patient medications and allergies were reviewed. The patient is competent. The risks and benefits of the procedure and the sedation options and risks were discussed with the patient. All questions were answered and informed consent was obtained. Patient identification and proposed procedure were verified by the physician in the pre-procedure area. Mental Status Examination: alert and oriented. Airway Examination: normal oropharyngeal airway and neck mobility. Respiratory Examination: clear to auscultation. CV Examination: normal. Prophylactic Antibiotics: The patient does not require prophylactic antibiotics. Prior Anticoagulants: The patient has taken no anticoagulant or antiplatelet agents except for NSAID medication. ASA Grade Assessment: II - A patient with mild systemic disease. After reviewing the risks and benefits, the patient was deemed in satisfactory condition to undergo the procedure. The anesthesia plan was to use monitored anesthesia care (MAC). Immediately prior to administration of medications, the patient was re-assessed for adequacy to receive sedatives. The heart rate, respiratory rate, oxygen saturations, blood pressure, adequacy of pulmonary ventilation, and response to care were monitored throughout the procedure. The physical status of the patient was re-assessed after the procedure. After obtaining informed consent, the endoscope was passed under direct vision. Throughout the procedure, the patient's blood pressure, pulse, and oxygen saturations were monitored continuously. The gastroscope was introduced through the mouth, and advanced to the second part of duodenum. The upper GI endoscopy was accomplished without difficulty. The patient tolerated the procedure well. Scope In: 12:45:53 PM Scope Out: 1:04:00 PM Total Procedure Duration Time 0 hours 18 minutes 7 seconds Findings: A low-grade of narrowing Schatzki ring was found at the cricopharyngeus. Biopsies were taken with a cold forceps for histology. Verification of patient identification for the specimen was done. Estimated blood loss was minimal. A guidewire was placed and the scope was withdrawn. Dilation was performed with a Savary dilator with no resistance at 54 Fr. The dilation site was examined and showed. A small hiatal hernia was present. No gross lesions were noted in the entire examined stomach. Two oozing cratered duodenal ulcers with a visible vessel were found in the duodenal bulb. The largest lesion was 20 mm in largest dimension. Coagulation for hemostasis using argon plasma at 0.3 liters/minute and 20 torres was successful. To stop active bleeding, three hemostatic clips were successfully placed. Clip battalion chief: [employer]. There was no bleeding at the end of the procedure. Impression: - Low-grade of narrowing Schatzki ring. Biopsied. Dilated. - Small hiatal hernia. - No gross lesions in the entire stomach. - Oozing duodenal ulcers with a visible vessel. Treated with argon plasma coagulation (APC). Clips were placed. Clip battalion chief: [employer]. Recommendation: - Return patient to referring hospital for ongoing care. - Full liquid diet today. - Continue present medications. Procedure Code(s): --- Professional --- 60489, 59, Esophagogastroduodenoscopy, flexible, transoral; with control of bleeding, any method 97206, Esophagogastroduodenoscopy, flexible, transoral; with insertion of guide wire followed by passage of dilator(s) through esophagus over guide wire 65865, 59,51, Esophagogastroduodenoscopy, flexible, transoral; with biopsy, single or multiple CPT copyright 2021 [employer]. All rights reserved. The codes documented in this report are preliminary and upon orthopedic coder review may be revised to meet current compliance requirements. Jethro Lucia DO 03/09/2024 2:05:25 PM This report has been signed electronically. Number of Addenda: 0 Note Initiated On: 03/09/2024 12:33 PM
--- NOTE | 2024-03-09 14:06 | OP.CCLET_ITS ---
03/09/2024 Santino Long [address] [place] [address] Re : Upper GI endoscopy procedure for John Arrieta Dear Dr. Long This procedure was performed on Saturday, March 09, 2024. My impressions and recommendations are as follows: Impressions : - Low-grade of narrowing Schatzki ring. Biopsied. Dilated. - Small hiatal hernia. - No gross lesions in the entire stomach. - Oozing duodenal ulcers with a visible vessel. Treated with argon plasma coagulation (APC). Clips were placed. Clip ramp attendant: [employer]. Recommendations : - Return patient to referring hospital for ongoing care. - Full liquid diet today. - Continue present medications. My findings are described in the full procedure note, which is enclosed. If I can be of further assistance, please feel free to contact me at . Sincerely, Jethro Friend, 03/09/2024 2:05:25 PM This report has been signed electronically.
--- NOTE | 2024-03-09 18:42 | PCM.POSTANE2 ---
Anesthesia Postop Eval I Sum Postop Eval Completion status Anesthesia document: Postop Eval 1 completed: Yes Anesthesia Postop Eval I Summary Anesthesia Postop Eval I Summary: Anesthesia Postop Eval I: Assessment Summary Airway patent Yes 03/09/24 13:15 [email or web address] Spontaneous unlabored Yes 03/09/24 13:15 [email or web address] respirations Mental status Asleep - with 90mm 03/09/24 13:15 [email or web address] OA nausea No 03/09/24 13:15 [email or web address] Vomiting No 03/09/24 13:15 [email or web address] Anesthesia Postop Eval I: Fluid Summary Crystalloid volume administer 30 03/09/24 13:15 [email or web address] (ml) Colloids volume administered ( ml) Blood Product volume administered (ml) Total IV fluid infused 30 03/09/24 13:15 [email or web address] Anesthesia Postop Eval I: Summary Notes Anesthesia Complication No 03/09/24 13:15 [email or web address] Anesthesia Complication Comment: Post-operative progress note Anesthesia: Postop Eval II Evaluation Mental status: Calm and Asleep Pain Level: 0 nausea: No Vomiting: No Complications Anesthesia Complication: No
== END 2024-03-09 14:08 | disposition home or self-care (01) ==
LOC: EN 10:35 → AC 10:36
PROVIDERS: PCP Internal Medicine; Referring Provider Internal Medicine; Visit Provider Internal Medicine Gastroenterology
PROC: 0DJ08ZZ Inspection of Upper Intestinal Tract, Via Natural or Artificial Opening Endoscopic (ICD-10-PCS; CPT 43235; principal; 2024-03-09 11:40)
DX: K22.2 Esophageal obstruction (principal); I50.22 Chronic systolic (congestive) heart failure; I11.0 Hypertensive heart disease with heart failure; J44.9 Chronic obstructive pulmonary disease, unspecified; N18.30 Chronic kidney disease, stage 3 unspecified; I25.10 Atherosclerotic heart disease of native coronary artery without angina pectoris; K44.9 Diaphragmatic hernia without obstruction or gangrene; K26.9 Duodenal ulcer, unspecified as acute or chronic, without hemorrhage or perforation; Z87.891 Personal history of nicotine dependence; Z79.01 Long term (current) use of anticoagulants; Z79.899 Other long term (current) drug therapy
CPT/HCPCS: 43248; 43255; 43239; 88305; A4216; C1769; J2405

== ENCOUNTER 2024-03-13 13:28 | Inpatient (IN) | payer MEDICARE, BC, SELFPAY ==
[2024-03-13 13:34] VITALS: BP 95/59; PULSE 100; RESP 20; TEMP 36.4; O2SAT 95; BMI 20.3
--- NOTE | 2024-03-13 14:58 | RAD_ITS ---
STUDY: X-RAY CHEST REASON FOR EXAM: Male, 88 years old. Weakness TECHNIQUE: Single AP portable view of the chest. COMPARISON: Comparison is made with prior study dated February 27, 2024. FINDINGS: EKG electrodes are seen. Mild residual infiltrate is seen in the right upper lobe as well as in the ostomy segment of the left lower lobe although there has been improvement as compared to prior study. There is no demonstrated pleural abnormality. Normal size heart. Normal mediastinum and mk. Normal visualized pulmonary arteries. There is atherosclerotic calcification of the aortic arch with tortuosity. There are diffuse degenerative changes of the visualized thoracic spine. Dextroscoliosis. Normal visualized ribs, clavicles, and shoulders. There is no demonstrated abnormality of the visualized soft tissue structures of the upper abdomen. RAD/Chest 1 View (Portable) IMPRESSION: Mild residual infiltrate in the right upper lobe and posterior medial segment of the left lower lobe although there has been improvement as compared to prior study. Electronically Signed: Mitesh Kiser MD at 15:31 EST ,
--- NOTE | 2024-03-13 15:04 | EDS_ITS ---
HPI History of Present Illness Chief Complaint: Weakness Informant: patient, spouse/S.O. and SNF Narrative Narrative: 88-year-old male presenting to the emergency room with the chief complaint of variable heart rate. Patient is currently at the TCU for rehabilitation following a COVID-19 infection complicated with a haemophilus influenza pneumonia. Family notes a chronic history of atrial fibrillation and had been cardioverted to a sinus rhythm but around the time of his illness went back into atrial fibrillation. It was reported that the patient was recommended for TCU but family took him home and they returned and was subsequently admitted to the TCU. The patient was noted by family to have a significant weight loss over the past several months. They note worsening memory issues. They state he is lost his will. They note that it is very difficult for him to participate in therapy. It was reported that the patient's heart rate was quite variable today in TCU from the 50s to around 100. 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 Cardiomyopathy Lung nodules BPH (benign prostatic hyperplasia) Rheumatoid arthritis Essential hypertension Hypertension HTN (hypertension) Colitis Home Medications ?Medication ?Instructions ?Recorded ?Last Taken ?Type Handicap Placard #1 ea 09/17/22 Unknown Rx albuterol sulfate 90 mcg/actuation 2 puff inhalation Q4H PRN wheezing 02/27/24 Unknown History aerosol inhaler (Ventolin HFA) aluminum-mag hydroxide-simethicone 30 ml PO Q6H PRN PRN Gastric 03/06/24 Unknown Rx 400 mg-400 mg-40 mg/5 mL oral susp Burning #0 mL (Mag-Al Plus Extra Strength) budesonide 0.5 mg/2 mL suspension 0.5 mg (2 mL) inhalation BID.RT 03/06/24 Unknown Rx for nebulization SOB #0 mL bupropion HCl 150 mg 24 hr tablet, 150 mg PO DAILY Mood #0 tabs 03/06/24 Unknown Rx extended release hydroxychloroquine 200 mg tablet 200 mg PO Meza@0800 Rheumatoid 03/06/24 Unknown Rx Arthritis #0 tabs hydroxychloroquine 200 mg tablet 400 mg (2 x 200 mg) PO 03/06/24 03/09/24 Rx [id number]@0800 Rheumatoid Arthritis #0 tabs menthol 0.44 %-zinc oxide 20.6 % 1 applic topical BID Skin 03/06/24 Unknown Rx topical ointment (Calmoseptine) Irritation #0 grams mesalamine 1.2 gram tablet,delayed 2.4 g (2 x 1.2 gram) PO DAILY 03/06/24 Unknown Rx release Ulcerative colitis #0 tabs metoprolol succinate 100 mg 100 mg PO DAILY BP #0 tabs 03/06/24 03/09/24 08:15 Rx tablet,extended release 24 hr acetaminophen 500 mg capsule 1,000 mg PO Q6H PRN pain 03/13/24 Unknown History apixaban 5 mg tablet (Eliquis) 5 mg PO BID Blood Thinner 03/13/24 Unknown History nystatin 100,000 unit/gram topical 1 applic topical BID Skin 03/13/24 Unknown History powder ([facility]) Irritation sennosides 8.6 mg-docusate sodium 2 tab PO Q6H PRN PRN Constipation 03/13/24 Unknown History 50 mg tablet (Stimulant Laxative Plus) Allergy/AdvReac Type Severity Reaction Status Date / Time etanercept (From Enbrel) AdvReac Rash Verified 03/13/24 13:34 Family History Mother Diabetes CAD (coronary artery disease) Myocardial infarction, Onset Age: 82 Father CAD (coronary artery disease) Brother CAD (coronary artery disease) Hypertension Surgical History History of cardiac catheterization History of cardioversion History of bilateral cataract extraction History of foot surgery History of hernia repair History of arthroscopy of knee History of bilateral knee replacement Social History household members: spouse housing: house Smoking Status: Former smoker how long ago did patient quit smokin years ago alcohol intake: current alcohol intake frequency: 0-2 drinks per day Alcohol type: beer details: wine substance use type: does not use caffeine: Yes Type: coffee Number of servings: 2 ROS ROS ED ROS Narrative Generalized weakness Constitutional Constitutional ED: Denies chills or weight loss Eyes Eyes: Denies change in vision or diplopia ENT ENT ED: Denies ear pain, rhinorrhea or sore throat Cardiovascular Cardiovascular: Denies chest pain, orthopnea, palpitations or racing heartbeat Respiratory/Chest Respiratory/Chest: Denies cough, dyspnea or orthopnea Gastrointestinal Gastrointestinal: Reports other Details: Eating and drinking less ; Denies abdominal pain, diarrhea, nausea or vomiting Genitourinary Genitourinary ED: Denies dysuria, hematuria or urinary frequency Musculoskeletal Musculoskeletal: Denies arthralgias or myalgias Integumentary Denies abscess or rash Neurologic Neurologic: Reports other Details: Memory issues ; Denies headache(s) or weakness Psychiatric Psychiatric: Reports depression; Denies anxiety, suicidal ideation or suicidal thoughts Endocrine Endocrinology: Denies polydipsia, polyphagia or polyuria Allergic/Immunologic Allergic/Immunologic ED: Denies mouth swelling, tongue swelling or urticaria EXAM Physical Exam Const Vital Signs: 03/13/24 13:34 03/13/24 13:40 03/13/24 15:15 Temperature 97.6 F L Temperature Source Oral Pulse Rate 100 107 H Respiratory Rate 20 H 20 H Respiratory Effort Normal Non-Labored Respiratory Pattern Normal Blood Pressure 95/59 L 91/74 Blood Pressure Mean 71 79 Pulse Ox 95 95 Oxygen Delivery Method Room Air 03/13/24 17:00 03/13/24 18:55 03/13/24 19:00 Temperature 98.7 F Temperature Source Pulse Rate 101 H 96 95 Respiratory Rate 22 H 20 H 20 H Respiratory Effort Respiratory Pattern Blood Pressure 109/73 115/83 H 103/74 Blood Pressure Mean 86 93 83 Pulse Ox 99 96 97 Oxygen Delivery Method Room Air Positive well nourished and well developed General Appearance ED: well developed and NAD HEENT Reports normocephalic, head/scalp atraumatic and moist mucous membranes Eyes PERRL and EOMs intact bilaterally Neck no lymphadenopathy, supple and no JVD Resp normal respiratory effort and clear to auscultation bilaterally Cardio no murmurs Rhythm: abnormal rhythm irregularly irregular GI normal to inspection, nondistended, normoactive bowel sounds and non-tender Palpation: soft Narrative: Rectal examination perform under the observation and assistance of nurse (Estrellita). There is black tarry stools that is heme positive. Back/Spine no CVA tenderness and normal ROM Extremity normal to inspection General Extremety ED: Negative for edema General Extremity: Negative for edema Neuro CN's II-XII intact bilaterally Neuro Narrative: Oriented x 2, moves all extremities x 4 Sensorium / Orientation: alert Motor Exam: general weakness Psych mental status grossly normal Mood & Affect: Negative for depressed or tearful Skin no rashes or lesions noted Skin Narrative: Variable bruising on extremities particularly the arms MDM MDM MDM Narrative Medical decision making narrative: Differential diagnosis includes but not limited to cardiac dysrhythmia electrolyte abnormalities dehydration anemia pneumonia pleural effusion CHF debility Patient has remained in atrial fibrillation with a rate around 100. He received a liter of IV fluids and blood pressure has been better with systolics typically around 100-1 20. I noted that his hemoglobin today here in the emergency department is 9.3. 2 hours earlier he was 10. This was repeated 3 hours after our initial 1 it was down to 8.5 some of that being the delusional effect with the IV fluids. His rectal examination shows black tarry stool. We called the TCU and he has been having black stools Tuesday and Tuesday and he had an incontinent bowel movement today but it was not known what that was like. The patient's creatinine 1.76 with a BUN of 50. Urinalysis is negative my independent interpretation of the chest x-ray is improvement of infiltrates. Upon researching the chart further I found that on the he underwent EGD as part of a dysphagia evaluation. He was found to have duodenal ulcers the largest being 2 cm in width. This was treated with clips and cauterization. Given the decrease in his hemoglobin the black tarry stools and his recent EGD we placed him on a Protonix drip. I spoke with on-call GI as well as our hospitalist and the plan is admission. We talked about perhaps sending him back to the TCU but given that he will most likely have a black tarry stool this evening or during the night and I would suspect his hemoglobin will continue to drop which would probably necessitate a another trip to the emergency department more reasonable to bring him into the hospital for close observation History & Record Review Discussion w/independent historian: Patient and Family Lab Data Attestation: I reviewed the patient's lab results. Labs: Laboratory Results - last 24 hr 03/13/24 03/13/24 03/13/24 15:16 16:30 18:00 WBC 9.9 RBC 3.08 L Hgb 9.3 L 8.5 L Hct 29.8 L 26.5 L MCV 96.8 H MCH 30.2 MCHC 31.2 L RDW Std Deviation 59.6 H RDW Coeff of Dominick 17.4 H Plt Count 196 MPV 11.8 Immature Gran % (Auto) 1.700 H Neut % (Auto) 89.3 H Lymph % (Auto) 4.0 L [place] % (Auto) 4.7 Eos % (Auto) 0.2 Baso % (Auto) 0.1 Absolute Neuts (auto) 8.8 H Absolute Lymphs (auto) 0.40 L Nucleated RBC % 0 Sodium 140 Potassium 4.2 Chloride 111 H Carbon Dioxide 23.0 Anion Gap 6 BUN 50 H Creatinine 1.76 H Estim Creat Clear Calc 31.74 Est GFR (MDRD) Af Amer 47 L Est GFR (MDRD) Non-Af 39 L BUN/Creatinine Ratio 28.4 H Glucose 100 Calcium 8.3 L Total Bilirubin 0.50 Direct Bilirubin 0.19 AST 39 H ALT 61 Alkaline Phosphatase 114 Troponin I High Sens 94 H Total Protein 4.6 L Albumin 2.0 L Globulin 2.6 Urine Color Yellow Urine Clarity Clear Urine pH 6.0 Ur Specific [place] 1.020 Urine Protein 30 H Urine Glucose (UA) Normal Urine Ketones Negative Urine Occult Blood Negative Urine Nitrite Negative Urine Bilirubin Negative Urine Urobilinogen Normal Ur Leukocyte Esterase Negative Urine RBC 0 SEEN Urine WBC 0-5 SEEN Ur Squamous Epith Cells 0 SEEN Urine Bacteria RARE Hyaline Casts 0-5 SEEN Urine Mucus 0 SEEN Radiography Diagnostic Testing: Clinical Impression(s) from Imaging Studies Chest X-Ray 03/13/24 14:58 IMPRESSION: Mild residual infiltrate in the right upper lobe and posterior medial segment of the left lower lobe although there has been improvement as compared to prior study. Electronically Signed: Mitesh Kiser MD at 15:31 EST , EKG Initial EKG: Attestation: I personally reviewed and interpreted this EKG as follows: Comments: Atrial fibrillation ventricular rate of 113 bpm Management Discussion w/another healthcare provider: Hospitalist (Dr Malagon) and [employer] (Caitlin RICHARDS) Discharge Plan Dx/Rx/DC Orders Clinical Impression: Atrial fibrillation, Acute upper gastrointestinal bleeding, ABLA (acute blood loss anemia), Duodenal ulcer Disposition Disposition: Acute Care Hospital [facility] Discharge Date/Time: 03/13/24 19:29
[2024-03-13 15:15] VITALS: BP 91/74; PULSE 107; RESP 20; O2SAT 95
[2024-03-13] MEDS: 0.9% Normal Saline (1000mL) 1,000 ML 1000 ML IV (15:16)
[2024-03-13 15:27] LABS: Absolute Neutrophil Count 8.8 X10^3/uL (2.0-7.7); Basophil# 0.01 X10^3/uL; Basophil% 0.1 % (0-1); Eosinophil# 0.02 X10^3/uL; Eosinophils% 0.2 % (0-5); Hematocrit 29.8 % (40-54); Hemoglobin 9.3 g/dL (13.0-16.5); Mean Corp Hgb Conc 31.2 g/dL (32-36); Mean Corpuscular Hgb 30.2 pg (27.0-32.0); Mean Corpuscular Volume 96.8 fL (80-94); Mean Platelet Vol. 11.8 fl (6.2-12.0); Monocyte# 0.47 X10^3/uL; Monocyte% 4.7 % (0-10); NRBC Flagged by Analyzer 0 % (0-5); Neutrophil # 8.84 X10^3/uL (2.7-7.7); Neutrophil % 89.3 % (47-70); POSITIVE DIFFERENTIAL YES; Platelet Count 196 K/mm3 (150-450); RBC Distribution Width CV 17.4 % (11.6-14.6); RBC Distribution Width SD 59.6 fl (35.1-43.9); Red Blood Count 3.08 M/mm3 (4.6-6.2); White Blood Count 9.9 K/mm3 (4.4-11.0)
[2024-03-13 15:45] LABS: AST(SGOT) 39 U/L (15-37); Alanine Aminotransfer ALT/SGPT 61 U/L (16-61); Alkaline Phosphatase 114 U/L (45-117); Anion Gap 6 (5-15); BUN 50 mg/dL (7-18); BUN/Creat Ratio 28.4 RATIO (10-20); Bilirubin, Direct 0.19 mg/dL (0.00-0.30); Calcium,Total 8.3 mg/dL (8.5-10.1); Chloride 111 mmol/L (98-107); Creatinine, Serum 1.76 mg/dL (0.70-1.30); EST Glomerular Filtration Rate 39 mL/min (>60); Est Glom Filt Rate - Afr Amer 47 mL/min (>60); Estimated Creatinine Clearance 31.74 ml/min; Globulin 2.6 g/dL (2.2-4.2); Glucose 100 mg/dL (74-106); Potassium 4.2 mmol/L (3.5-5.1); Protein, Total 4.6 g/dL (6.4-8.2); Sodium Level 140 mmol/L (136-145); Troponin-I HS 94 pg/mL (3.0-78.0)
[2024-03-13 16:34] LABS: Mucous, Urine 0 SEEN /hpf (<or=2+); Red Blood Cells-Urine 0 SEEN /hpf (0-5); Squamous Epithelial Cells - UA 0 SEEN /hpf (0-5)
[2024-03-13 16:39] LABS: Color, Urine Yellow (Yellow); Glucose, Dipstick Normal (Normal); Ketone-Dipstick Negative (Negative); Leukocyte Esterase-Dipstick Negative /ul (Negative); Nitrite-Dipstick Negative (Negative); Occult Blood-Urine Negative /ul (Negative); Protein-Dipstick 30 mg/dl (Negative); Urine Bilirubin Dipstick Negative (Negative); Urine Clarity Clear (Clear); Urine Urobilinogen Normal (Normal)
[2024-03-13 16:45] LABS: Bacteria RARE /hpf (None Seen); Hyaline Cast 0-5 SEEN /lpf (0-5); White Blood Cells 0-5 SEEN /hpf (0-5)
[2024-03-13 17:00] VITALS: BP 109/73; PULSE 101; RESP 22; O2SAT 99
[2024-03-13 18:10] LABS: Hematocrit 26.5 % (40-54); Hemoglobin 8.5 g/dL (13.0-16.5)
[2024-03-13] MEDS: Pantoprazole Sodium 80 MG in 0.9% Normal Saline (50mL Bag) 15 ML 420 MG IV BOLUS (18:54)
[2024-03-13 18:55] VITALS: BP 115/83; PULSE 96; RESP 20; TEMP 37.1; O2SAT 96
--- NOTE | 2024-03-13 18:55 | HP.PCM.HOS_ITS ---
HPI - General General Date of Admission: 03/13/24 Date of Service: 03/13/24 Chief Complaint: Weakness, variable HR HPI Narrative LUCINDA HERNANDEZ, is a With history of COPD, CKD, diabetes, A-fib, RA, depression, ulcerative colitis who presented [facility] ED 03/13/2024 with concerns for weakness and variable heart rate. Patient currently at TCU for rehab following a COVID-19 infection complicated with H. influenzae pneumonia. Patient has history of paroxysmal atrial fibrillation and had been converted to sinus rhythm but at the time of his illness went back into atrial fibrillation so he has been maintained on Eliquis. In the ED hemoglobin 9.3 with hemoglobin 12-13 a couple weeks ago and FOBT positive. Creatinine 1.76, possibly slightly up from baseline however has been widely variable so difficult to assess. Patient was noted to have a blood pressure of 95/59 and troponin found to be 94. Repeat hemoglobin in the ED down to 8.5 but this was after IV fluids. Blood pressure also improved with IV fluids. The ED physician talked to GI nurse practitioner, patient started on IV PPI and hospitalist contacted for admission and GI consultation. Patient evaluated with family member at bedside, has been feeling somewhat tired and fatigued but denies any other new or acute complaints, no abdominal pain or nausea, patient intermittently will have diarrhea but has ulcerative colitis and does not feel this has been out of the normal for him. Of note patient had endoscopy 03/09/[address] Lucia and was noted to have 2 duodenal ulcers with visible vessel requiring cauterization and clips. Patient presently denying any lightheadedness or dizziness, no abdominal pain. Systolic blood pressure improved with systolic 115 and heart rate within normal limits. 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 Cardiomyopathy Lung nodules BPH (benign prostatic hyperplasia) Rheumatoid arthritis Essential hypertension Hypertension HTN (hypertension) Colitis Home Medications ?Medication ?Instructions ?Recorded ?Last Taken ?Type Handicap Placard #1 ea 09/17/22 Unknown Rx albuterol sulfate 90 mcg/actuation 2 puff inhalation Q4H PRN wheezing 02/27/24 Unknown History aerosol inhaler (Ventolin HFA) aluminum-mag hydroxide-simethicone 30 ml PO Q6H PRN PRN Gastric 03/06/24 Unknown Rx 400 mg-400 mg-40 mg/5 mL oral susp Burning #0 mL (Mag-Al Plus Extra Strength) budesonide 0.5 mg/2 mL suspension 0.5 mg (2 mL) inhalation BID.RT 03/06/24 Unknown Rx for nebulization SOB #0 mL bupropion HCl 150 mg 24 hr tablet, 150 mg PO DAILY Mood #0 tabs 03/06/24 Unknown Rx extended release hydroxychloroquine 200 mg tablet 200 mg PO Meza@0800 Rheumatoid 03/06/24 Unknown Rx Arthritis #0 tabs hydroxychloroquine 200 mg tablet 400 mg (2 x 200 mg) PO 03/06/24 03/09/24 Rx [id number]@0800 Rheumatoid Arthritis #0 tabs menthol 0.44 %-zinc oxide 20.6 % 1 applic topical BID Skin 03/06/24 Unknown Rx topical ointment (Calmoseptine) Irritation #0 grams mesalamine 1.2 gram tablet,delayed 2.4 g (2 x 1.2 gram) PO DAILY 03/06/24 Unknown Rx release Ulcerative colitis #0 tabs metoprolol succinate 100 mg 100 mg PO DAILY BP #0 tabs 03/06/24 03/09/24 08:15 Rx tablet,extended release 24 hr acetaminophen 500 mg capsule 1,000 mg PO Q6H PRN pain 03/13/24 Unknown History apixaban 5 mg tablet (Eliquis) 5 mg PO BID Blood Thinner 03/13/24 Unknown History nystatin 100,000 unit/gram topical 1 applic topical BID Skin 03/13/24 Unknown History powder ([facility]) Irritation sennosides 8.6 mg-docusate sodium 2 tab PO Q6H PRN PRN Constipation 03/13/24 Unknown History 50 mg tablet (Stimulant Laxative Plus) Allergy/AdvReac Type Severity Reaction Status Date / Time etanercept (From Enbrel) AdvReac Rash Verified 03/13/24 13:34 Family History Mother Diabetes CAD (coronary artery disease) Myocardial infarction, Onset Age: 82 Father CAD (coronary artery disease) Brother CAD (coronary artery disease) Hypertension Surgical History History of cardiac catheterization History of cardioversion History of bilateral cataract extraction History of foot surgery History of hernia repair History of arthroscopy of knee History of bilateral knee replacement Social History household members: spouse housing: house Smoking Status: Former smoker how long ago did patient quit smokin years ago alcohol intake: current alcohol intake frequency: 0-2 drinks per day Alcohol type: beer details: wine substance use type: does not use caffeine: Yes Type: coffee Number of servings: 2 ROS ROS Narrative General: Denies fever/chills HENT: Denies headache, denies stuffy nose, denies sore throat EYES: Denies changes in vision Resp: Denies cough, denies shortness of breath Cardiac: Denies chest pain GI: Denies abdominal pain, reports intermittent diarrhea but does not feel this has been out of the ordinary for him, denies nausea/vomiting : Denies changes in urination Extremity: Denies swelling MSK: Generalized weakness Neuro: Denies any numbness/tingling Heme: No overt bleeding appreciated Skin: Denies rashes Psychiatric: No complaints voiced Vital Signs Vital Signs Vital Signs: 03/13/24 13:34 03/13/24 13:40 03/13/24 15:15 Temperature 97.6 F L Temperature Source Oral Pulse Rate 100 107 H Respiratory Rate 20 H 20 H Respiratory Effort Normal Non-Labored Respiratory Pattern Normal Blood Pressure 95/59 L 91/74 Blood Pressure Mean 71 79 Pulse Ox 95 95 Oxygen Delivery Method Room Air 03/13/24 17:00 Temperature Temperature Source Pulse Rate 101 H Respiratory Rate 22 H Respiratory Effort Respiratory Pattern Blood Pressure 109/73 Blood Pressure Mean 86 Pulse Ox 99 Oxygen Delivery Method Weight Weight: 75.9 kg Body Mass Index (BMI) 20.3 Physical Exam Narrative General: Alert, no apparent distress HEENT: Atraumatic, normocephalic Eyes: Anicteric, normal conjunctiva, extraocular movements grossly intact Neck: Supple Respiratory: Clear to auscultation bilaterally, normal respiratory effort Cardiovascular: Irregularly irregular GI: Soft, nontender, nondistended Extremities: No edema Musculoskeletal: Moving all extremities Neuro: No overt focal neurological deficits Skin: No rashes appreciated Psych: Cooperative Results Lab / Micro Data 03/13/24 18:00 03/13/24 15:16 Labs: Laboratory Results - last 24 hr 03/13/24 15:16: WBC 9.9, RBC 3.08 L, Hgb 9.3 L, Hct 29.8 L, MCV 96.8 H, MCH 30.2, MCHC 31.2 L, RDW Std Deviation 59.6 H, RDW Coeff of Dominick 17.4 H, Plt Count 196, MPV 11.8, Immature Gran % (Auto) 1.700 H, Neut % (Auto) 89.3 H, Lymph % (Auto) 4.0 L, [place] % (Auto) 4.7, Eos % (Auto) 0.2, Baso % (Auto) 0.1, Absolute Neuts (auto) 8.8 H, Absolute Lymphs (auto) 0.40 L, Nucleated RBC % 0, Sodium 140, Potassium 4.2, Chloride 111 H, Carbon Dioxide 23.0, Anion Gap 6, BUN 50 H, Creatinine 1.76 H, Estim Creat Clear Calc 31.74, Est GFR (MDRD) Af Amer 47 L, E st GFR (MDRD) Non-Af 39 L, BUN/Creatinine Ratio 28.4 H, Glucose 100, Calcium 8.3 L, Total Bilirubin 0.50, Direct Bilirubin 0.19, AST 39 H, ALT 61, Alkaline Phosphatase 114, Troponin I High Sens 94 H, Total Protein 4.6 L, Albumin 2.0 L, Globulin 2.6 03/13/24 16:30: Urine Color Yellow, Urine Clarity Clear, Urine pH 6.0, Ur Specific [place] 1.020, Urine Protein 30 H, Urine Glucose (UA) Normal, Urine Ketones Negative, Urine Occult Blood Negative, Urine Nitrite Negative, Urine Bilirubin Negative, Urine Urobilinogen Normal, Ur Leukocyte Esterase Negative, Urine RBC 0 SEEN, Urine WBC 0-5 SEEN, Ur Squamous Epith Cells 0 SEEN, Urine Bacteria RARE, Hyaline Casts 0-5 SEEN, Urine Mucus 0 SEEN 03/13/24 18:00: Hgb 8.5 L, Hct 26.5 L Micro: Microbiology 03/13/24 17:15 Stool Stool Occult Blood (TABATHA) - Final Occult Blood Positive Imaging Radiology Impression Chest X-Ray 03/13/24 14:58 IMPRESSION: Mild residual infiltrate in the right upper lobe and posterior medial segment of the left lower lobe although there has been improvement as compared to prior study. Electronically Signed: Mitesh Kiser MD at 15:31 EST , Assessment & Plan Assessment/Plan (1) ABLA (acute blood loss anemia): PLAN: Plan # Acute blood loss anemia suspect secondary to upper GI bleed -Hemoglobin 9.3, baseline closer to 13 -Repeat hemoglobin the ED down to 8.5 (though this was after IV hydration) -FOBT positive and dark stool on ED rectal exam, no bright red blood -Type and cross -Cycle H&H -IV PPI -Hold Eliquis, given patient presently stable do not think this needs emergently reversed at this time -GI consult -N.p.o. at midnight in the event he needs scope tomorrow -Patient is vitally stable at this time with no lightheadedness or symptoms -Of note did have endoscopy 03/09/2024 that noted 2 duodenal ulcers which were cauterized and clipped # Elevated troponin -Troponin 94, suspect this is due to GI bleed and borderline blood pressure on arrival -Given lack of cardiac symptoms or other specific complaints we will hold off on further workup at this time but this can be pursued further if necessary # History of paroxysmal atrial fibrillation -Patient presently in A-fib, will hold Eliquis -Decrease metoprolol with hold parameters # History of COPD -Continue home inhalers # CKD stage III b -Appears to have variable creatinines, unclear baseline though suspect slightly up from previous -Avoid nephrotoxic agents -Daily BMPs #Depression/anxiety -Continue home medications # History of RA -Continue hydroxychloroquine # History of UC -Continue patient's home medications #DVT ppx: SCDs Sara Malagon MD Charges/Coding Visit Charges Inpatient E&M: 89151 Init Hosp L2
[2024-03-13] MEDS: Pantoprazole Sodium 80 MG in 0.9% Normal Saline (100mL Bag) 80 ML 10 MG CONT INF (18:56)
[2024-03-13 19:00] VITALS: BP 103/74; PULSE 95; RESP 20; O2SAT 97
--- NOTE | 2024-03-13 19:28 | EX.PCM.CON.G ---
HPI Consult Data Date of Consult: 03/13/24 HPI Narrative Reason for Consultation: GI bleeding HPI Narrative: LUCINDA HERNANDEZ, is a 88 man , with a history of COPD, CKD, diabetes, A-fib, RA, depression, ulcerative colitis who presented [facility] ED 03/13/2024 with concerns for weakness and variable heart rate. Patient currently at TCU for rehab following a COVID-19 infection complicated with H. influenzae pneumonia. Patient has history of paroxysmal atrial fibrillation and had been converted to sinus rhythm but at the time of his illness went back into atrial fibrillation so he has been maintained on Eliquis. In the ED hemoglobin 9.3 with hemoglobin 12-13 a couple weeks ago and FOBT positive. Creatinine 1.76, possibly slightly up from baseline however has been widely variable so difficult to assess. Patient was noted to have a blood pressure of 95/59 and troponin found to be 94. Repeat hemoglobin in the ED down to 8.5 but this was after IV fluids. Blood pressure also improved with IV fluids. The ED physician talked to GI nurse practitioner, patient started on IV PPI and hospitalist contacted for admission and GI consultation. Patient evaluated with family member at bedside, has been feeling somewhat tired and fatigued but denies any other new or acute complaints, no abdominal pain or nausea, patient intermittently will have diarrhea but has ulcerative colitis and does not feel this has been out of the normal for him. Of note patient had endoscopy 03/09/2024 with myself and was noted to have 2 duodenal ulcers with visible vessel requiring cauterization and clips. Patient presently denying any lightheadedness or dizziness, no abdominal pain. Systolic blood pressure improved with systolic 115 and heart rate within normal limits. [facility] Medical History Acute hypoxic respiratory failure Elevated troponin Failure of outpatient treatment SHIMA (acute kidney injury) Pneumonia due to Haemophilus influenzae Atrial fibrillation with RVR Hypoxemia COPD (chronic obstructive pulmonary disease) Wears hearing aid Alcohol use Skin tear Walker as ambulation aid History of renal disease Back pain TIA (transient ischemic attack) Dietary restriction Difficulty swallowing On home oxygen therapy Shortness of breath on exertion History of echocardiogram History of stress test Cardiology follow-up encounter Pneumonia Former tobacco use CAD (coronary artery disease) Atrial fibrillation/flutter CKD (chronic kidney disease), stage III Anticoagulated 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 Cardiomyopathy Lung nodules BPH (benign prostatic hyperplasia) Rheumatoid arthritis Essential hypertension Hypertension HTN (hypertension) Colitis Home Medications ?Medication ?Instructions ?Recorded ?Last Taken ?Type Handicap Placard #1 ea 09/17/22 Unknown Rx albuterol sulfate 90 mcg/actuation 2 puff inhalation Q4H PRN wheezing 02/27/24 Unknown History aerosol inhaler (Ventolin HFA) aluminum-mag hydroxide-simethicone 30 ml PO Q6H PRN PRN Gastric 03/06/24 Unknown Rx 400 mg-400 mg-40 mg/5 mL oral susp Burning #0 mL (Mag-Al Plus Extra Strength) budesonide 0.5 mg/2 mL suspension 0.5 mg (2 mL) inhalation BID.RT 03/06/24 Unknown Rx for nebulization SOB #0 mL bupropion HCl 150 mg 24 hr tablet, 150 mg PO DAILY Mood #0 tabs 03/06/24 03/13/24 Rx extended release hydroxychloroquine 200 mg tablet 200 mg PO Meza@0800 Rheumatoid 03/06/24 03/11/24 Rx Arthritis #0 tabs hydroxychloroquine 200 mg tablet 400 mg (2 x 200 mg) PO 03/06/24 03/13/24 Rx MoTuWeThFrSa@0800 Rheumatoid Arthritis #0 tabs menthol 0.44 %-zinc oxide 20.6 % 1 applic topical BID Skin 03/06/24 Unknown Rx topical ointment (Calmoseptine) Irritation #0 grams mesalamine 1.2 gram tablet,delayed 2.4 g (2 x 1.2 gram) PO DAILY 03/06/24 03/13/24 Rx release Ulcerative colitis #0 tabs metoprolol succinate 100 mg 100 mg PO DAILY BP #0 tabs 03/06/24 03/13/24 Rx tablet,extended release 24 hr acetaminophen 500 mg capsule 1,000 mg PO Q6H PRN pain 03/13/24 Unknown History apixaban 5 mg tablet (Eliquis) 5 mg PO BID Blood Thinner 03/13/24 03/13/24 History balsalazide 750 mg capsule 2,250 mg PO TID ulcerative colitis 03/13/24 Unknown History bupropion HCl 75 mg tablet 75 mg PO BID depression 03/13/24 Unknown History metoprolol succinate 50 mg 50 mg PO DAILY bp 03/13/24 Unknown History tablet,extended release 24 hr nystatin 100,000 unit/gram topical 1 applic topical BID Skin 03/13/24 03/13/24 History powder ([facility]) Irritation sennosides 8.6 mg-docusate sodium 2 tab PO Q6H PRN PRN Constipation 03/13/24 Unknown History 50 mg tablet (Stimulant Laxative Plus) spironolactone 25 mg tablet 25 mg PO DAILY fluid 03/13/24 Unknown History tramadol 50 mg tablet 50 mg PO BID PRN PRN pain 03/13/24 Unknown History Allergy/AdvReac Type Severity Reaction Status Date / Time etanercept (From Enbrel) AdvReac Rash Verified 03/13/24 13:34 Family History Mother Diabetes CAD (coronary artery disease) Myocardial infarction, Onset Age: 82 Father CAD (coronary artery disease) Brother CAD (coronary artery disease) Hypertension Surgical History History of cardiac catheterization History of cardioversion History of bilateral cataract extraction History of foot surgery History of hernia repair History of arthroscopy of knee History of bilateral knee replacement Social History household members: spouse housing: house Smoking Status: Former smoker how long ago did patient quit smokin years ago alcohol intake: current alcohol intake frequency: 0-2 drinks per day Alcohol type: beer details: wine substance use type: does not use caffeine: Yes Type: coffee Number of servings: 2 ROS Constitutional Constitutional: Denies fatigue, fever(s), poor appetite, weight gain or weight loss Gastrointestinal Gastrointestinal: Denies belching, bloating, change in bowel habits, change in stool character, chewing difficulty, coffee ground emesis, constipation, cramping, diarrhea, dyspepsia, dysphagia, early satiety, excessive flatus, fecal incontinence, heartburn, hematemesis, hematochezia, hemorrhoids, loose stools, melena, nausea, odynophagia, rectal bleeding, tenesmus, vomiting or weight changes Physical Exam Narrative Seen and examined. Patient was admitted with generalized weakness, fatigue and variable heart rate. Patient also lost weight. No chest pain or increased shortness of breath. Denies abdominal pain. Stool for occult blood positive Physical exam General: Alert, Oriented x3, Cooperative, fatigue, cannot sit up on his own. HEENT: Atraumatic, PERRLA, EOMI, Normocephalic Oral: Oral mucosa dry. No Gingival or Mucosal Lesions/ Ulcerations Neck: Supple, No JVD, Negative Carotid Bruits Chest wall/Lungs: Air entry diminished in bilateral lung bases. No crepitation/rhonchi Cardiovascular: Sinus tachycardia, no murmur gallop or rub. S1-S2 regular Abdomen: Bowel Sounds Present, Soft, Non Tender, Non-Distended : No dysuria. No renal angle tenderness. No suprapubic tenderness. Extremities: No edema, Capillary Refill Less than 3 Seconds Skin: No rashes, No breakdown Musculoskeletal: No Tenderness to Palpation of Joints or Extremities. ROM restricted. Power 4+/5 at knees and hip joints Neurological: Cranial nerves II-XII grossly intact, DTR 2+/4. No acute focal neurological deficit. Psych/Mental Status: Flat affect Lab / Micro Data 03/14/24 Unknown 03/14/24 11:53 Labs: Laboratory Results - last 24 hr 03/13/24 16:30: Urine Color Yellow, Urine Clarity Clear, Urine pH 6.0, Ur Specific [place] 1.020, Urine Protein 30 H, Urine Glucose (UA) Normal, Urine Ketones Negative, Urine Occult Blood Negative, Urine Nitrite Negative, Urine Bilirubin Negative, Urine Urobilinogen Normal, Ur Leukocyte Esterase Negative, Urine RBC 0 SEEN, Urine WBC 0-5 SEEN, Ur Squamous Epith Cells 0 SEEN, Urine Bacteria RARE, Hyaline Casts 0-5 SEEN, Urine Mucus 0 SEEN 03/13/24 18:00: Hgb 8.5 L, Hct 26.5 L 03/13/24 21:14: Blood Type O POSITIVE, Antibody Screen NEGATIVE, Crossmatch See Detail 03/14/24 00:00: Hgb 8.8 L, Hct 27.5 L 03/14/24 11:53: Hgb Cancelled, Hct Cancelled, Diff Path Review Cancelled, PT 17.6 H, INR 1.4, APTT 26.0, Sodium 142, Potassium 3.7, Chloride 112 H, Carbon Dioxide 22.0, Anion Gap 7, BUN 37 H, Creatinine 1.43 H, Estim Creat Clear Calc 37.22, Est GFR (MDRD) Af Amer 60, Est GFR (MDRD) Non-Af 50 L, BUN/Creatinine Ratio 25.9 H, Glucose 77, Calcium 8.2 L 03/14/24 : WBC 9.8, RBC 2.95 L, Hgb 9.0 L, Hct 28.6 L, MCV 96.9 H, MCH 30.5, MCHC 31.5 L, RDW Std Deviation 61.6 H, RDW Coeff of Dominick 17.7 H, Plt Count 191, MPV 12.3 H, Immature Gran % (Auto) 1.700 H, Neut % (Auto) 92.1 H, Lymph % (Auto) 2.8 L, [place] % (Auto) 3.0, Eos % (Auto) 0.3, Baso % (Auto) 0.1, Absolute Neuts (auto) 9.0 H, Absolute Lymphs (auto) 0.27 L, Nucleated RBC % 0 Micro: Microbiology 03/13/24 17:15 Stool Stool Occult Blood (TABATHA) - Final Occult Blood Positive Assessment & Plan Assessment/Plan (1) Duodenal ulcer: (2) ABLA (acute blood loss anemia): (3) Acute upper gastrointestinal bleeding: PLAN: Plan 88-year-old with acute blood loss anemia suspected secondary to upper GI bleed -Hemoglobin 9.3, baseline closer to 13 -Repeat hemoglobin the ED down to 8.5 (though this was after IV hydration) -FOBT positive and dark stool on ED rectal exam, no bright red blood -Type and cross -Cycle H&H -IV PPI -Hold Eliquis, given patient presently stable do not think this needs emergently reversed at this time -N.p.o. at midnight in the event he needs scope tomorrow -Patient is vitally stable at this time with no lightheadedness or symptoms -Of note did have endoscopy 03/09/2024 that noted 2 duodenal ulcers which were cauterized and clipped Charges/Coding Visit Charges Inpatient E&M: 38351 Init Hosp L3
[2024-03-13 20:20] VITALS: BP 106/99; PULSE 96; RESP 16; TEMP 36.2; O2SAT 95
[2024-03-13 20:37] VITALS: BMI 19.3
[2024-03-14] VITALS (17 sets, daily range): BP systolic 84–120; BP diastolic 52–95; PULSE 50–126; RESP 15–30; TEMP 36.2–37.4; O2SAT 90–99; BMI 19.3
[2024-03-14 00:13] LABS: Hematocrit 27.5 % (40-54); Hemoglobin 8.8 g/dL (13.0-16.5)
[2024-03-14] MEDS: Pantoprazole Sodium 80 MG in 0.9% Normal Saline (100mL Bag) 80 ML 10 MG CONT INF ×2 (05:24→15:42)
[2024-03-14] MEDS: Budesonide Respules 0.5 MG/2 ML AMPUL.NEB. INHALATION ×2 (07:08→19:45)
--- NOTE | 2024-03-14 07:46 | PN.HOSP_ITS ---
Reason for Visit Reason for Visit: Diagnoses Acute posthemorrhagic anemia (03/13/24) Objective Data Objective Data Vital Signs: Vital Signs Temp Pulse Resp BP Pulse Ox O2 Del Method 97.1 F L 98 18 105/75 92 Room Air 03/14/24 03:00 03/14/24 07:09 03/14/24 07:09 03/14/24 03:00 03/14/24 07:09 03/14/24 07:09 Oxygen Delivery Method Room Air Weight: 159 lb 6.307 oz Body Mass Index (BMI) 19.3 Intake & Output: Intake and Output for Last 24 Hours 03/12/24 03/13/24 03/14/24 23:59 23:59 23:59 Intake Total 1035 / 1035 100 / 100 Balance 1035 / 1035 100 / 100 Lab / Micro Data 03/14/24 00:00 03/13/24 15:16 Labs: Laboratory Results - last 24 hr 03/13/24 15:16: WBC 9.9, RBC 3.08 L, Hgb 9.3 L, Hct 29.8 L, MCV 96.8 H, MCH 30.2, MCHC 31.2 L, RDW Std Deviation 59.6 H, RDW Coeff of Dominick 17.4 H, Plt Count 196, MPV 11.8, Immature Gran % (Auto) 1.700 H, Neut % (Auto) 89.3 H, Lymph % (Auto) 4.0 L, [place] % (Auto) 4.7, Eos % (Auto) 0.2, Baso % (Auto) 0.1, Absolute Neuts (auto) 8.8 H, Absolute Lymphs (auto) 0.40 L, Nucleated RBC % 0, Sodium 140, Potassium 4.2, Chloride 111 H, Carbon Dioxide 23.0, Anion Gap 6, BUN 50 H, Creatinine 1.76 H, Estim Creat Clear Calc 31.74, Est GFR (MDRD) Af Amer 47 L, E st GFR (MDRD) Non-Af 39 L, BUN/Creatinine Ratio 28.4 H, Glucose 100, Calcium 8.3 L, Total Bilirubin 0.50, Direct Bilirubin 0.19, AST 39 H, ALT 61, Alkaline Phosphatase 114, Troponin I High Sens 94 H, Total Protein 4.6 L, Albumin 2.0 L, Globulin 2.6 03/13/24 16:30: Urine Color Yellow, Urine Clarity Clear, Urine pH 6.0, Ur Specific [place] 1.020, Urine Protein 30 H, Urine Glucose (UA) Normal, Urine Ketones Negative, Urine Occult Blood Negative, Urine Nitrite Negative, Urine Bilirubin Negative, Urine Urobilinogen Normal, Ur Leukocyte Esterase Negative, Urine RBC 0 SEEN, Urine WBC 0-5 SEEN, Ur Squamous Epith Cells 0 SEEN, Urine Bacteria RARE, Hyaline Casts 0-5 SEEN, Urine Mucus 0 SEEN 03/13/24 18:00: Hgb 8.5 L, Hct 26.5 L 03/13/24 21:14: Blood Type O POSITIVE, Antibody Screen NEGATIVE, Crossmatch See Detail 03/14/24 00:00: Hgb 8.8 L, Hct 27.5 L Micro: Microbiology 03/13/24 17:15 Stool Stool Occult Blood (TABATHA) - Final Occult Blood Positive Radiography Diagnostic Testing: Radiology Impression Chest X-Ray 03/13/24 14:58 IMPRESSION: Mild residual infiltrate in the right upper lobe and posterior medial segment of the left lower lobe although there has been improvement as compared to prior study. Electronically Signed: Mitesh Kiser MD at 15:31 EST , Physical Exam Narrative Seen and examined. Patient was admitted with generalized weakness, fatigue and variable heart rate. Patient also lost weight. No chest pain or increased shortness of breath. Denies abdominal pain. Stool for occult blood positive Physical exam General: Alert, Oriented x3, Cooperative, fatigue, cannot sit up on his own. HEENT: Atraumatic, PERRLA, EOMI, Normocephalic Oral: Oral mucosa dry. No Gingival or Mucosal Lesions/ Ulcerations Neck: Supple, No JVD, Negative Carotid Bruits Chest wall/Lungs: Air entry diminished in bilateral lung bases. No crepitation/rhonchi Cardiovascular: Sinus tachycardia, no murmur gallop or rub. S1-S2 regular Abdomen: Bowel Sounds Present, Soft, Non Tender, Non-Distended : No dysuria. No renal angle tenderness. No suprapubic tenderness. Extremities: No edema, Capillary Refill Less than 3 Seconds Skin: No rashes, No breakdown Musculoskeletal: No Tenderness to Palpation of Joints or Extremities. ROM restricted. Power 4+/5 at knees and hip joints Neurological: Cranial nerves II-XII grossly intact, DTR 2+/4. No acute focal neurological deficit. Psych/Mental Status: Flat affect Assessment & Plan Assessment/Plan (1) ABLA (acute blood loss anemia): PLAN: Plan This 88-year-old gentleman was sent from TCU for EKG changes, variable heart rate 50- 120s per night. History of [facility], recently admitted for COVID- pneumonia complicated with haemophilus influenza. Patient also complained of significant weight lost for past several months. # Acute blood loss anemia suspect secondary to upper GI bleed -Hemoglobin 9.3, baseline closer to 13, repeat hemoglobin dropped down to 8.8. Does not need transfusion. Hold Eliquis. Stool for occult blood positive. Type and crossmatch. IV iron ordered. Denies dizziness. Plan for EGD today -Of note did have endoscopy 03/09/2024 that noted 2 duodenal ulcers which were cauterized and clipped # Elevated troponin -Troponin 94, suspect this is due to GI bleed and borderline blood pressure on arrival. Recent echo in March 2023 shows EF 50% with mild global hypokinesis. Mild eccentric MR, mild TR. -Given lack of cardiac symptoms or other specific complaints, does not need further workup. # History of paroxysmal atrial fibrillation -Patient presently in [facility], will hold Eliquis -Decrease metoprolol with holding parameters. # History of COPD -Continue home inhalers # SHIMA on CKD stage III b: Patient creatinine is variable between 1.37-1.65 and at 1 time it was 2.11 in February 2024. Creatinine went up to 1.76. Avoid nephrotoxic medications. Hold hydroxychloroquine. IV fluid normal saline ordered for 1 L -Daily BMPs #Depression/anxiety -Continue home medications # History of RA - as mentioned above hold hydroxychloroquine # History of UC -Continue patient's home medications #DVT ppx: SCDs Charges/Coding Visit Charges Inpatient E&M: 52644 Subs Hosp L2
--- NOTE | 2024-03-14 10:40 | CASEMGMT ---
Patient came from [facility] TCU. TCU is able to take patient back. RICHARD met with patient and his Luigi. RICHARD confirmed the plan is to return to TCU when ready. Plan: d/c to TCU under skilled level of care. Aliza CRUZ
[2024-03-14 12:25] LABS: International Normalized Ratio 1.4; Prothrombin Time (Protime)PT. 17.6 SECONDS (11.7-14.9)
[2024-03-14 12:29] LABS: Absolute Lymphocyte Count 0.27 X10^3/uL (0.83-4.51); Basophil# 0.01 X10^3/uL; Basophil% 0.1 % (0-1); Eosinophil# 0.03 X10^3/uL; Eosinophils% 0.3 % (0-5); Hematocrit 28.6 % (40-54); Lymphocyte # 0.27 X10^3/ul (0.83-4.51); Lymphocyte % 2.8 % (19-41); Mean Corp Hgb Conc 31.5 g/dL (32-36); Mean Corpuscular Hgb 30.5 pg (27.0-32.0); Mean Corpuscular Volume 96.9 fL (80-94); Mean Platelet Vol. 12.3 fl (6.2-12.0); Monocyte# 0.29 X10^3/uL; NRBC Flagged by Analyzer 0 % (0-5); Neutrophil # 8.99 X10^3/uL (2.7-7.7); Neutrophil % 92.1 % (47-70); POSITIVE DIFFERENTIAL YES; Platelet Count 191 K/mm3 (150-450); RBC Distribution Width CV 17.7 % (11.6-14.6); RBC Distribution Width SD 61.6 fl (35.1-43.9); Red Blood Count 2.95 M/mm3 (4.6-6.2); White Blood Count 9.8 K/mm3 (4.4-11.0)
[2024-03-14 13:19] LABS: Anion Gap 7 (5-15); BUN 37 mg/dL (7-18); BUN/Creat Ratio 25.9 RATIO (10-20); Calcium,Total 8.2 mg/dL (8.5-10.1); Chloride 112 mmol/L (98-107); Creatinine, Serum 1.43 mg/dL (0.70-1.30); EST Glomerular Filtration Rate 50 mL/min (>60); Est Glom Filt Rate - Afr Amer 60 mL/min (>60); Estimated Creatinine Clearance 37.22 ml/min; Glucose 77 mg/dL (74-106); Potassium 3.7 mmol/L (3.5-5.1); Sodium Level 142 mmol/L (136-145)
--- NOTE | 2024-03-14 14:32 | CHAPLAIN ---
Type of Pastoral Visit _x__ Initial Visit ___ Follow-up Visit ___ On-call Visit ___ General Patient Visit ___ Spiritual Assessment ___ Family Conference ___ Bereavement ___ Rapid Response ___ Code Blue ___ Other (describe below) Pastoral Care Referral From ___ Patient _x__ Family ___ Nurse ___ Physician ___ Carton Inspector ___ Online Marketing Specialist ___ Other (describe below) Sacrament/Intervention _x__ Active listening ___ Anointing ___ Christian ___ Bereavement ___ Communion ___ Tresa exploration ___ ___ Life review _x__ Prayer ___ Reconciliation ___ Sacrament of Sick _x__ Supportive presence ___ Wedding ___ Other (describe below) Pastoral Comments ongoing situation for this patient who has been seen in almost all units in recent months; more family members are present today; conversation and prayer given
[2024-03-14] MEDS: 0.9% Normal Saline (1000mL) 1,000 ML 75 ML IV (15:01)
--- NOTE | 2024-03-14 15:45 | PRE.ANES_ITS ---
ASA Classification* ASA Classification ASA Classification: 4 Assessment & Plan Anesthesia* Anesthesia Assessment Anesthesia Assessment: Discussed sedation and/or anesthesia options, risks, benefits, and alternatives with patient/parents/legal guardian/POA. Questions invited. The patient/parents/legal guardian/POA seems to understand and agrees to proceed with anesthesia plan. Reviewed the physical assessment, medical history, allergy history and patient home medications list prior to surgery/procedure/anesthetic and documented any changes. Performed airway and anesthesia risk assessments. Anesthesia Type Anesthesia Type: MAC History Source History Obtained from:: Patient, Chart and Significant Other Anesthesia Focused Assessment* Temperature: 98.3 F Pulse Rate: 90 Blood Pressure: 109/71 Respiratory Rate: 15 Pulse Ox: 95 Oxygen Delivery Method: Room Air Airway Assessment Mouth opens: >3 cm Mallampati Score: III Focused Labs Anesthesia Preop lab: CBC WBC 9.8 K/mm3 (4.4-11.0) 03/14/24 23:59 RBC 2.95 M/mm3 (4.6-6.2) L 03/14/24 23:59 Hgb 9.0 g/dL (13.0-16.5) L 03/14/24 23:59 Hct 28.6 % (40-54) L 03/14/24 23:59 Plt Count 191 K/mm3 (150-450) 03/14/24 23:59 CHEMISTRY Potassium 3.7 mmol/L (3.5-5.1) 03/14/24 11:53 Sodium 142 mmol/L (136-145) 03/14/24 11:53 Magnesium 2.6 mg/dL (1.6-2.6) 02/27/24 19:29 BUN 37 mg/dL (7-18) H 03/14/24 11:53 Creatinine 1.43 mg/dL (0.70-1.30) H 03/14/24 11:53 Glucose 77 mg/dL (74-106) 03/14/24 11:53 POC Glucose 109 mg/dL (74-106) H 09/02/22 16:50 TSH 2.84 uIU/mL (0.358-3.74) 08/06/22 12:22 COAG PT 17.6 SECONDS (11.7-14.9) H 03/14/24 11:53 Pre-Assessment Diagnosis/Proposed Procedure Planned Operative Procedure(s): EGD Anesthesia History Anesthesia History - consultative sales associate: Anesthesia History - consultative sales associate Hx Hospitalization Yes: DOUBLE PNEUMONIA/COVID 03/08/24 15:42 02/27/24 Any Problems With Anesthesia No 03/14/24 01:56 Cholinesterase deficiency No 03/14/24 01:56 You/Your Family Experience No 03/14/24 01:56 fever (hyperthermia) with Relationship Recent Exposure to Contagious Disease Does patient have nerve No 03/14/24 01:56 stimulator Patient instructed to have device shut off --Does patient have Pacemaker No 03/14/24 01:56 or ICD? When Was Last Pacemaker Check QUESTION #4 FULL TEXT: You/Your Family Experience fever (hyperthermia) with Anesthesia Last Oral Intake Last Oral intake: Last Oral Intake NPO since 00:00 03/14/24 01:56 Meds taken in AM with sips of water? Meds patient instructed to take am of surgery PONV PONV - consultative sales associate: PONV - consultative sales associate Female HX of Motion Sickness HX of N/V After Surgery Non-Smoker Duration of Surgery greater than 60 minutes Number of Risk Factors PONV Score Height & Weight Height & Weight: Anesthesia: Height & Weight Height 6 ft 4 in 03/14/24 08:47 Weight: 72.3 kg 03/14/24 08:47 Body Mass Index (BMI) 19.3 03/14/24 01:56 Respiratory Assessment Respiratory Assessment - consultative sales associate: Respiratory Tract Infection Hx - consultative sales associate Hx Respiratory Tract Infection Yes: Patient had double 03/14/24 01:56 pneumonia February 27, 2024. Patient has completed a cour STOP Sleep Apnea STOP Sleep Apnea - consultative sales associate: STOP Sleep Apnea - consultative sales associate Hx Hypertension Yes: CONTROLLED WITH MEDS 03/14/24 12:39 Hx Sleep Apnea Yes 03/13/24 20:37 CPAP No 03/13/24 20:37 BIPAP No 03/13/24 20:37 Do you snore loudly (louder than talking or can be heard Do you often feel tired/ fatigued/ sleepy during daytime? Has anyone observed you stop breathing during sleep? STOP Results Positive 03/13/24 20:37 QUESTION #5 FULL TEXT : Do you snore loudly (louder than talking or can be heard through closed doors)? Tobacco Use History Tobacco Use History - consultative sales associate: Tobacco Use History - consultative sales associate Tobacco Use Smoking Status Former smoker 03/13/24 20:37 Hx Tobacco Use No 03/13/24 20:37 Years Smoking Packs Smoked per Day Smoking Cessation Date was No - quit smoking greater 03/13/24 20:37 within the last 15 years than 15 years ago Hx Smoking Cessation Date Hx Smoking Cessation No 03/13/24 20:37 Counseling Hematologic Medial History Hematologic Hx - consultative sales associate: Hematologic Medical Hx - sidewalk repairer Hx of Blood Transfusion No 03/13/24 20:37 Hx of Transfusion in last 3 No 03/13/24 20:37 Months Date of Last Transfusion (if within last 3 months) Ever experience any problems No 03/13/24 20:37 with transfusion(s)? Specify any problems Hx of Preganancy in last 3 N/A 03/13/24 20:37 Months Nurse Filling Out Transfusion AFLICKING 03/13/24 20:37 & Questions: Date: 03/13/24 03/13/24 20:37 Time: 20:42 03/13/24 20:37 Patient unable to answer at this time (ie. confused, unrespo /Reproduction History /Reproductive History - consultative sales associate: /Reproductive Hx- consultative sales associate Hx Now Gestational Age (in weeks): EDC: Hx Hx Para Hx Section SAB No 03/14/24 01:56 Active Medications Active Medications: Current Medications Generic Name Dose Route Start Last Admin Trade Name Freq PRN Reason Stop Dose Admin Acetaminophen 650 mg 03/13/24 20:22 Acetaminophen 325 Mg Tablet PO Q6H PRN PRN Pain 1-10 Or Fever >100.7 Budesonide 0.5 mg 03/13/24 20:22 03/14/24 07:08 Budesonide Respules 0.5 Mg/2 Ml Ampul.Neb. INHALATION 0.5 mg BID.RT CARMEN Administration Bupropion HCl 150 mg 03/14/24 10:00 03/14/24 10:01 Bupropion (Xl) 150 Mg Tablet.Xl PO Not Given DAILY CARMEN Hydroxychloroquine Sulfate 200 mg 03/18/24 08:00 Hydroxychloroquine 200 Mg Tablet PO Meza@0800 CARMEN Hydroxychloroquine Sulfate 400 mg 03/14/24 08:00 03/14/24 10:00 Hydroxychloroquine 200 Mg Tablet PO Not Given MoTuWeThFrSa@0800 CARMEN Pantoprazole Sodium 80 mg/ 100 mls @ 10 mls/hr 03/13/24 18:30 03/14/24 15:42 Sodium Chloride CONT INF 10 mls/hr Q10H CARMEN Administration Sodium Chloride 1,000 mls @ 75 mls/hr 03/14/24 12:50 03/14/24 15:01 IV 03/15/24 02:09 75 mls/hr .[id number] CARMEN Administration Protocol Ferric Sodium Gluconate 270 mls @ 135 mls/hr 03/14/24 12:51 Complex 250 mg/ Sodium IV 03/14/24 14:50 Chloride X1 ONE Melatonin 3 mg 03/13/24 20:22 Melatonin 3 Mg Tablet PO QHS PRN PRN INSOMNIA Mesalamine 2.4 gm 03/14/24 10:00 03/14/24 10:00 Mesalamine 1.2 Gm Tablet PO Not Given DAILY CARMEN Metoprolol Succinate 50 mg 03/14/24 10:00 03/14/24 10:01 Metoprolol(Xl)Succ 50 Mg Tablet PO Not Given DAILY CARMEN Protocol Sodium Chloride 10 - 40 ml 03/13/24 20:45 0.9% Saline Lock 10 Ml Syringe IV UD PRN SALINE FLUSH PFSH Medical History Acute hypoxic respiratory failure Elevated troponin Failure of outpatient treatment SHIMA (acute kidney injury) Pneumonia due to Haemophilus influenzae Atrial fibrillation with RVR Hypoxemia COPD (chronic obstructive pulmonary disease) Wears hearing aid Alcohol use Skin tear Walker as ambulation aid History of renal disease Back pain TIA (transient ischemic attack) Dietary restriction Difficulty swallowing On home oxygen therapy Shortness of breath on exertion History of echocardiogram History of stress test Cardiology follow-up encounter Pneumonia Former tobacco use CAD (coronary artery disease) Atrial fibrillation/flutter CKD (chronic kidney disease), stage III Anticoagulated 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 Cardiomyopathy Lung nodules BPH (benign prostatic hyperplasia) Rheumatoid arthritis Essential hypertension Hypertension HTN (hypertension) Colitis Home Medications ?Medication ?Instructions ?Recorded ?Last Taken ?Type Handicap Placard #1 ea 09/17/22 Unknown Rx albuterol sulfate 90 mcg/actuation 2 puff inhalation Q4H PRN wheezing 02/27/24 Unknown History aerosol inhaler (Ventolin HFA) aluminum-mag hydroxide-simethicone 30 ml PO Q6H PRN PRN Gastric 03/06/24 Unknown Rx 400 mg-400 mg-40 mg/5 mL oral susp Burning #0 mL (Mag-Al Plus Extra Strength) budesonide 0.5 mg/2 mL suspension 0.5 mg (2 mL) inhalation BID.RT 03/06/24 Unknown Rx for nebulization SOB #0 mL bupropion HCl 150 mg 24 hr tablet, 150 mg PO DAILY Mood #0 tabs 03/06/24 03/13/24 Rx extended release hydroxychloroquine 200 mg tablet 200 mg PO Meza@0800 Rheumatoid 03/06/24 03/11/24 Rx Arthritis #0 tabs hydroxychloroquine 200 mg tablet 400 mg (2 x 200 mg) PO 03/06/24 03/13/24 Rx MoTuWeThFrSa@0800 Rheumatoid Arthritis #0 tabs menthol 0.44 %-zinc oxide 20.6 % 1 applic topical BID Skin 03/06/24 Unknown Rx topical ointment (Calmoseptine) Irritation #0 grams mesalamine 1.2 gram tablet,delayed 2.4 g (2 x 1.2 gram) PO DAILY 03/06/24 03/13/24 Rx release Ulcerative colitis #0 tabs metoprolol succinate 100 mg 100 mg PO DAILY BP #0 tabs 03/06/24 03/13/24 Rx tablet,extended release 24 hr acetaminophen 500 mg capsule 1,000 mg PO Q6H PRN pain 03/13/24 Unknown History apixaban 5 mg tablet (Eliquis) 5 mg PO BID Blood Thinner 03/13/24 03/13/24 History balsalazide 750 mg capsule 2,250 mg PO TID ulcerative colitis 03/13/24 Unknown History bupropion HCl 75 mg tablet 75 mg PO BID depression 03/13/24 Unknown History metoprolol succinate 50 mg 50 mg PO DAILY bp 03/13/24 Unknown History tablet,extended release 24 hr nystatin 100,000 unit/gram topical 1 applic topical BID Skin 03/13/24 03/13/24 History powder (Nyamyc) Irritation sennosides 8.6 mg-docusate sodium 2 tab PO Q6H PRN PRN Constipation 03/13/24 Unknown History 50 mg tablet (Stimulant Laxative Plus) spironolactone 25 mg tablet 25 mg PO DAILY fluid 03/13/24 Unknown History tramadol 50 mg tablet 50 mg PO BID PRN PRN pain 03/13/24 Unknown History Allergy/AdvReac Type Severity Reaction Status Date / Time etanercept (From Enbrel) AdvReac Rash Verified 03/13/24 13:34 Family History Mother Diabetes CAD (coronary artery disease) Myocardial infarction, Onset Age: 82 Father CAD (coronary artery disease) Brother CAD (coronary artery disease) Hypertension Surgical History History of cardiac catheterization History of cardioversion History of bilateral cataract extraction History of foot surgery History of hernia repair History of arthroscopy of knee History of bilateral knee replacement Social History household members: spouse housing: house Smoking Status: Former smoker how long ago did patient quit smokin years ago alcohol intake: current alcohol intake frequency: 0-2 drinks per day Alcohol type: beer details: wine substance use type: does not use caffeine: Yes Type: coffee Number of servings: 2 Prior Cardiac Testing/Procedures Prior Cardiac Testing/Procedures: Echocardiogram (RVSP 45; Mild AI; EF 50%) Addt'l Information Additional Findings: Patient in Afib Review of Systems (Anesthesia) ROS Narrative System reviewed and no additional complaints, except as documented.
--- NOTE | 2024-03-14 16:32 | EX.PCM.PN.GI ---
Subjective Subjective Patient has been n.p.o. for EGD today. He has been on Protonix. He has not had any black stools overnight. Objective Data Objective Data Vital Signs: Vital Signs Temp Pulse Resp BP Pulse Ox O2 Del Method 98.3 F 90 15 109/71 95 Room Air 03/14/24 15:50 03/14/24 15:50 03/14/24 15:50 03/14/24 15:50 03/14/24 15:50 03/14/24 15:50 Oxygen Delivery Method Room Air Weight: 159 lb 6.307 oz Body Mass Index (BMI) 19.3 Intake & Output: Intake and Output for Last 24 Hours 03/12/24 03/13/24 03/14/24 23:59 23:59 23:59 Intake Total 1035 / 1035 200 / 200 Output Total 650 / 650 Balance 1035 / 1035 -450 / -450 Lab / Micro Data 03/14/24 Unknown 03/14/24 11:53 Labs: Laboratory Results - last 24 hr 03/13/24 16:30: Urine Color Yellow, Urine Clarity Clear, Urine pH 6.0, Ur Specific [place] 1.020, Urine Protein 30 H, Urine Glucose (UA) Normal, Urine Ketones Negative, Urine Occult Blood Negative, Urine Nitrite Negative, Urine Bilirubin Negative, Urine Urobilinogen Normal, Ur Leukocyte Esterase Negative, Urine RBC 0 SEEN, Urine WBC 0-5 SEEN, Ur Squamous Epith Cells 0 SEEN, Urine Bacteria RARE, Hyaline Casts 0-5 SEEN, Urine Mucus 0 SEEN 03/13/24 18:00: Hgb 8.5 L, Hct 26.5 L 03/13/24 21:14: Blood Type O POSITIVE, Antibody Screen NEGATIVE, Crossmatch See Detail 03/14/24 00:00: Hgb 8.8 L, Hct 27.5 L 03/14/24 11:53: Hgb Cancelled, Hct Cancelled, Diff Path Review Cancelled, PT 17.6 H, INR 1.4, APTT 26.0, Sodium 142, Potassium 3.7, Chloride 112 H, Carbon Dioxide 22.0, Anion Gap 7, BUN 37 H, Creatinine 1.43 H, Estim Creat Clear Calc 37.22, Est GFR (MDRD) Af Amer 60, Est GFR (MDRD) Non-Af 50 L, BUN/Creatinine Ratio 25.9 H, Glucose 77, Calcium 8.2 L 03/14/24 : WBC 9.8, RBC 2.95 L, Hgb 9.0 L, Hct 28.6 L, MCV 96.9 H, MCH 30.5, MCHC 31.5 L, RDW Std Deviation 61.6 H, RDW Coeff of Dominick 17.7 H, Plt Count 191, MPV 12.3 H, Immature Gran % (Auto) 1.700 H, Neut % (Auto) 92.1 H, Lymph % (Auto) 2.8 L, [place] % (Auto) 3.0, Eos % (Auto) 0.3, Baso % (Auto) 0.1, Absolute Neuts (auto) 9.0 H, Absolute Lymphs (auto) 0.27 L, Nucleated RBC % 0 Micro: Microbiology 03/13/24 17:15 Stool Stool Occult Blood (TABATHA) - Final Occult Blood Positive Assessment & Plan Assessment/Plan (1) Duodenal ulcer: (2) ABLA (acute blood loss anemia): (3) Acute upper gastrointestinal bleeding: PLAN: Plan 88-year-old with acute blood loss anemia suspected secondary to upper GI bleed -Hemoglobin 9.3, baseline closer to 13 -Repeat hemoglobin the ED down to 8.5 (though this was after IV hydration) -FOBT positive and dark stool on ED rectal exam, no bright red blood -Type and cross -Cycle H&H -IV PPI -Hold Eliquis, given patient presently stable do not think this needs emergently reversed at this time -N.p.o. at midnight in the event he needs scope tomorrow -Patient is vitally stable at this time with no lightheadedness or symptoms -Of note did have endoscopy 03/09/2024 that noted 2 duodenal ulcers which were cauterized and clipped 03/14/2024-EGD today for treatment of upper GI bleed. Charges/Coding Visit Charges Inpatient E&M: 78957 Subs Hosp L3
--- NOTE | 2024-03-14 16:52 | PCM.POST.ANE ---
Anesthesia: Postop Eval I Current Vital Signs Temperature: 99.3 F Pulse Rate: 115 Blood Pressure: 100/52 Respiratory Rate: 20 Pulse Ox: 95 Assessment Airway patent: Yes Spontaneous unlabored respirations: Yes nausea: No Vomiting: No Anesthesia Complication: No Fluid Hydration Crystalloid volume administer (ml): 30 Total IV fluid infused: 30 Progress Note Anesthesia document: Postop Eval 1 completed: Yes
--- NOTE | 2024-03-14 17:15 | PN.GI_ITS ---
Subjective Subjective Patient underwent an upper endoscopy. The probation is not transferring the report or to [employer]. He had to known duodenal ulcers that were treated endoscopically. I will start him on PPI therapy and he will need to take PPIs indefinitely and Carafate for 6 weeks. Objective Data Objective Data Vital Signs: Vital Signs Temp Pulse Resp BP Pulse Ox O2 Del Method O2 Flow Rate 99.3 F H 122 H 28 H 94/77 99 Simple Mask 4 03/14/24 16:52 03/14/24 17:05 03/14/24 17:05 03/14/24 17:05 03/14/24 17:05 03/14/24 17:05 03/14/24 17:05 Oxygen Flow Rate (L/min) 4 Oxygen Delivery Method Simple Mask Weight: 159 lb 6.307 oz Body Mass Index (BMI) 19.3 Intake & Output: Intake and Output for Last 24 Hours 03/12/24 03/13/24 03/14/24 23:59 23:59 23:59 Intake Total 1035 / 1035 200 / 200 Output Total 650 / 650 Balance 1035 / 1035 -450 / -450 Lab / Micro Data 03/14/24 Unknown 03/14/24 11:53 Labs: Laboratory Results - last 24 hr 03/13/24 18:00: Hgb 8.5 L, Hct 26.5 L 03/13/24 21:14: Blood Type O POSITIVE, Antibody Screen NEGATIVE, Crossmatch See Detail 03/14/24 00:00: Hgb 8.8 L, Hct 27.5 L 03/14/24 11:53: Hgb Cancelled, Hct Cancelled, Diff Path Review Cancelled, PT 17.6 H, INR 1.4, APTT 26.0, Sodium 142, Potassium 3.7, Chloride 112 H, Carbon Dioxide 22.0, Anion Gap 7, BUN 37 H, Creatinine 1.43 H, Estim Creat Clear Calc 37.22, Est GFR (MDRD) Af Amer 60, Est GFR (MDRD) Non-Af 50 L, BUN/Creatinine Ratio 25.9 H, Glucose 77, Calcium 8.2 L 03/14/24 : WBC 9.8, RBC 2.95 L, Hgb 9.0 L, Hct 28.6 L, MCV 96.9 H, MCH 30.5, M CHC 31.5 L, RDW Std Deviation 61.6 H, RDW Coeff of Dominick 17.7 H, Plt Count 191, M PV 12.3 H, Immature Gran % (Auto) 1.700 H, Neut % (Auto) 92.1 H, Lymph % (Auto) 2.8 L, [place] % (Auto) 3.0, Eos % (Auto) 0.3, Baso % (Auto) 0.1, Absolute Neuts (auto) 9.0 H, Absolute Lymphs (auto) 0.27 L, Nucleated RBC % 0 Micro: Microbiology 03/13/24 17:15 Stool Stool Occult Blood (TABATHA) - Final Occult Blood Positive Charges/Coding Visit Charges Inpatient E&M: 29535 Subs Hosp L2
--- NOTE | 2024-03-14 17:26 | POSTOPAN2_ITS ---
Anesthesia Postop Eval I Sum Postop Eval Completion status Anesthesia document: Postop Eval 1 completed: Yes Anesthesia Postop Eval I Summary Anesthesia Postop Eval I Summary: Anesthesia Postop Eval I: Assessment Summary Airway patent Yes 03/14/24 16:52 [email or web address] Spontaneous unlabored Yes 03/14/24 16:52 [email or web address] [email or web address] respirations Mental status nausea No 03/14/24 16:52 [email or web address] [email or web address] Vomiting No 03/14/24 16:52 [email or web address] Anesthesia Postop Eval I: Fluid Summary Crystalloid volume administer 30 03/14/24 16:52 [email or web address] (ml) Colloids volume administered ( ml) Blood Product volume administered (ml) Total IV fluid infused 30 03/14/24 16:52 [email or web address] Anesthesia Postop Eval I: Summary Notes Anesthesia Complication No 03/14/24 16:52 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
--- NOTE | 2024-03-14 17:26 | PCM.POSTANE2 ---
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
[2024-03-14] MEDS: Sodium Ferric Gluconat/Sucrose 250 MG in 0.9% Normal Saline (250mL Bag) 250 ML 135 MG IV (18:18)
[2024-03-14] MEDS: Sucralfate 1 GM Tablet PO (18:30)
[2024-03-15] VITALS (9 sets, daily range): BP systolic 95–124; BP diastolic 73–84; PULSE 85–126; RESP 18–20; TEMP 36.5–36.8; O2SAT 93–98
[2024-03-15] MEDS: Pantoprazole Sodium 80 MG in 0.9% Normal Saline (100mL Bag) 80 ML 10 MG CONT INF (00:31)
[2024-03-15] MEDS: Metoprolol(XL)Succ 50 MG Tablet PO ×2 (02:42→09:13)
[2024-03-15 05:12] LABS: Absolute Lymphocyte Count 0.38 X10^3/uL (0.83-4.51); Absolute Neutrophil Count 8.8 X10^3/uL (2.0-7.7); Basophil# 0.01 X10^3/uL; Basophil% 0.1 % (0-1); Eosinophil# 0.05 X10^3/uL; Eosinophils% 0.5 % (0-5); Hematocrit 26.4 % (40-54); Hemoglobin 8.5 g/dL (13.0-16.5); Lymphocyte # 0.38 X10^3/ul (0.83-4.51); Lymphocyte % 3.9 % (19-41); Mean Corp Hgb Conc 32.2 g/dL (32-36); Mean Corpuscular Hgb 31.4 pg (27.0-32.0); Mean Corpuscular Volume 97.4 fL (80-94); Mean Platelet Vol. 12.2 fl (6.2-12.0); Monocyte# 0.32 X10^3/uL; Monocyte% 3.3 % (0-10); NRBC Flagged by Analyzer 0 % (0-5); Neutrophil # 8.75 X10^3/uL (2.7-7.7); POSITIVE DIFFERENTIAL YES; Platelet Count 175 K/mm3 (150-450); RBC Distribution Width CV 18.1 % (11.6-14.6); RBC Distribution Width SD 63.2 fl (35.1-43.9); Red Blood Count 2.71 M/mm3 (4.6-6.2); White Blood Count 9.7 K/mm3 (4.4-11.0)
[2024-03-15] MEDS: Metoprolol Tartrate 5 MG/5 ML Vial 2.5 MG IV (05:16)
[2024-03-15] MEDS: 0.9% Saline Lock 10 ML Syringe IV (05:17)
[2024-03-15 05:31] LABS: Anion Gap 8 (5-15); BUN 33 mg/dL (7-18); BUN/Creat Ratio 25.4 RATIO (10-20); Calcium,Total 7.7 mg/dL (8.5-10.1); Chloride 115 mmol/L (98-107); EST Glomerular Filtration Rate 56 mL/min (>60); Est Glom Filt Rate - Afr Amer 67 mL/min (>60); Estimated Creatinine Clearance 40.94 ml/min; Glucose 84 mg/dL (74-106); Potassium 3.4 mmol/L (3.5-5.1); Sodium Level 143 mmol/L (136-145)
[2024-03-15] MEDS: Sucralfate 1 GM Tablet PO ×2 (06:40→10:28)
[2024-03-15] MEDS: Budesonide Respules 0.5 MG/2 ML AMPUL.NEB. INHALATION (06:59)
[2024-03-15 07:20] LABS: Neutrophil % 90.5 % (47-70)
[2024-03-15] MEDS: buPROPion (XL) 150 MG TABLET.XL PO (09:14)
[2024-03-15] MEDS: Mesalamine 1.2 GM Tablet 2.4 GM PO (09:14)
--- NOTE | 2024-03-15 09:30 | TREXTCAR_ITS ---
Diet Diet Order/Speech Therapy: 03/14/24 17:16 Diet: Full Liquid Routine Orders/Code Status Code Status: DNRCC-A DC O2, CPAP, BIPAP needs Home O2 Discharge instructions: No Therapies Physical Therapy: Eval and Treat Occupational Therapy: Eval and Treat Problem/Diagnosis (1) Duodenal ulcer: Status: Acute Code(s): K26.9 - Duodenal ulcer, unspecified as acute or chronic, without hemorrhage or perforation (2) ABLA (acute blood loss anemia): Status: Acute Code(s): D62 - Acute posthemorrhagic anemia (3) Acute upper gastrointestinal bleeding: Status: Acute Code(s): K92.2 - Gastrointestinal hemorrhage, unspecified Allergies/Procedures Done in Hospital Allergies etanercept (From Enbrel) Adverse Reaction (Verified 03/13/24 13:34) Rash Type of Care/Length of Stay Estimated LOS: Convalescent Care Less Than 30 days Type of Care Needed: Skilled Rehab Potential: Good Prognosis: Good Additional Orders/Day of Discharge Day of Discharge: 03/15/24 Dietary and Speech Recommendations Dietitian Recommendations/Changes: Recommend advance diet as tolerated to liberal regular diet d/t signs and symptoms of malnutrition, per [employer] consistency/texture recommendations. As diet is advanced will order jin magic cup TID with meals and 120ml strawberry glucerna TID with medpass. Will adjust ONS as needed. Will monitor weight trends. Reviewed and approved by Cherelle Downing RDN, LD. Discharge Plan Admission Admit Date/Time: 03/13/24 18:55 Attending Provider: John Miranda Primary Care Provider: Santino Long Consulting Providers: Sara Malagon; George Velasquez Discharge Orders/Prescriptions Prescriptions: New sucralfate 1 gram Tablet 1 g PO TIDAC Qty: 0 0RF pantoprazole [Protonix] 40 mg tablet,delayed release (DR/EC) 40 mg PO BID 56 Days Qty: 112 0RF Continued (DME) Handicap Placard See Rx Instructions .Route .MEDSUPPLY Qty: 1 0RF Rx Instructions: Good from 09/17/22-09/18/2027 albuterol sulfate [Ventolin HFA] 90 mcg/actuation HFA aerosol inhaler 2 puff INHALATION Q4H PRN (Reason: wheezing) metoprolol succinate 100 mg Tablet Extended Release 24 Hr 100 mg PO DAILY Qty: 0 0RF budesonide 0.5 mg/2 mL Suspension For Nebulization 0.5 mg inhalation BID.RT Qty: 0 0RF hydroxychloroquine 200 mg Tablet 200 mg PO Meza@0800 Qty: 0 0RF hydroxychloroquine 200 mg Tablet 400 mg PO MoTuWeThFrSa@0800 Qty: 0 0RF alum-mag hydroxide-simeth [Mag-Al Plus Extra Strength] 400-400-40 mg/5 mL Suspension 30 ml PO Q6H PRN PRN (Reason: Gastric Burning) Qty: 0 0RF bupropion HCl 150 mg Tablet Extended Release 24 Hr 150 mg PO DAILY Qty: 0 0RF mesalamine 1.2 gram Tablet,Delayed Release (Dr/Ec) 2.4 g PO DAILY Qty: 0 0RF menthol-zinc oxide [Calmoseptine] 0.44-20.6 % Ointment 1 applic topical BID Qty: 0 0RF Protocol: *Topical Application Instructions APPLICATION INSTRUCTIONS: buttocks acetaminophen 500 mg capsule 1,000 mg PO Q6H PRN (Reason: pain) sennosides-docusate sodium [Stimulant Laxative Plus] 8.6-50 mg Tablet 2 tab PO Q6H PRN PRN (Reason: Constipation) nystatin [Nyamyc] 100,000 unit/gram Powder 1 applic topical BID Protocol: *Topical Application Instructions APPLICATION INSTRUCTIONS: apply to abd folds/groin balsalazide 750 mg capsule 2,250 mg PO TID bupropion HCl 75 mg tablet 75 mg PO BID spironolactone 25 mg tablet 25 mg PO DAILY metoprolol succinate 50 mg tablet extended release 24 hr 50 mg PO DAILY Held Eliquis 5 mg Tablet 5 mg PO BID Hold Instructions: Resume on 03/29/24. Discontinued tramadol 50 mg tablet 50 mg PO BID PRN PRN (Reason: pain) Referrals / Follow Up: Santino Long MD [Primary Care Provider] - Within 2 Weeks Disposition Disposition (needs filled in before D/C Order can be placed): [facility]
--- NOTE | 2024-03-15 09:35 | PCM.DC.SUM ---
Providers Date of Admission: 03/13/24 Date of Discharge: 03/15/24 Primary Care Physician: Dr. Santino Long MD Consultations 03/13/24 20:22 Consult: Gastroenterology Routine Consulting Provider: Caitlin [facility] Reason for Consult: GI bleed EMERGENT Consult: No MD Notified: Yes Date Notified: 03/13/24 Time Notified: 22:01 Method of Notification: Text Reason For Visit: weakness Diagnosis Discharge Diagnosis (1) Duodenal ulcer: Status: Acute Code(s): K26.9 - Duodenal ulcer, unspecified as acute or chronic, without hemorrhage or perforation (2) ABLA (acute blood loss anemia): Status: Acute Code(s): D62 - Acute posthemorrhagic anemia (3) Acute upper gastrointestinal bleeding: Status: Acute Code(s): K92.2 - Gastrointestinal hemorrhage, unspecified Medications at Discharge Home Medications Handicap Placard #1 ea 09/17/22 albuterol sulfate 90 mcg/actuation aerosol inhaler (Ventolin HFA) 2 puff inhalation Q4H PRN wheezing 02/27/24 aluminum-mag hydroxide-simethicone 400 mg-400 mg-40 mg/5 mL oral susp (Mag-Al Plus Extra Strength) 30 ml PO Q6H PRN PRN Gastric Burning #0 mL 03/06/24 budesonide 0.5 mg/2 mL suspension for nebulization 0.5 mg (2 mL) inhalation BID.RT SOB #0 mL 03/06/24 bupropion HCl 150 mg 24 hr tablet, extended release 150 mg PO DAILY Mood #0 tabs 03/06/24 hydroxychloroquine 200 mg tablet 200 mg PO Meza@0800 Rheumatoid Arthritis #0 tabs 03/06/24 hydroxychloroquine 200 mg tablet 400 mg (2 x 200 mg) PO MoTuWeThFrSa@0800 Rheumatoid Arthritis #0 tabs 03/06/24 menthol 0.44 %-zinc oxide 20.6 % topical ointment (Calmoseptine) 1 applic topical BID Skin Irritation #0 grams 03/06/24 mesalamine 1.2 gram tablet,delayed release 2.4 g (2 x 1.2 gram) PO DAILY Ulcerative colitis #0 tabs 03/06/24 metoprolol succinate 100 mg tablet,extended release 24 hr 100 mg PO DAILY BP #0 tabs 03/06/24 acetaminophen 500 mg capsule 1,000 mg PO Q6H PRN pain 03/13/24 apixaban 5 mg tablet (Eliquis) 5 mg PO BID Blood Thinner 03/13/24 balsalazide 750 mg capsule 2,250 mg PO TID ulcerative colitis 03/13/24 bupropion HCl 75 mg tablet 75 mg PO BID depression 03/13/24 metoprolol succinate 50 mg tablet,extended release 24 hr 50 mg PO DAILY bp 03/13/24 nystatin 100,000 unit/gram topical powder (Nyamyc) 1 applic topical BID Skin Irritation 03/13/24 sennosides 8.6 mg-docusate sodium 50 mg tablet (Stimulant Laxative Plus) 2 tab PO Q6H PRN PRN Constipation 03/13/24 spironolactone 25 mg tablet 25 mg PO DAILY fluid 03/13/24 pantoprazole 40 mg tablet,delayed release (Protonix) 40 mg PO BID 8 weeks #112 tabs 03/15/24 sucralfate 1 gram tablet 1 g PO TIDAC #0 tabs 03/15/24 Hospital Course Summary of Care Provided Minutes Spent on Discharge: 35 Hospital Course: This 88-year-old gentleman was sent from TCU for EKG changes, variable heart rate 50- 120s per night. History of A-count includes the [facility], recently admitted for COVID-pneumonia complicated with haemophilus influenza. Patient also complained of significant weight lost for past several months. 1. Acute blood loss anemia suspect secondary to upper GI bleed -Hemoglobin 9.3, baseline closer to 13, repeat hemoglobin dropped down to 8.8. Does not need transfusion. Hold Eliquis. Stool for occult blood positive. Type and crossmatch. IV iron ordered. Denies dizziness. Plan for EGD today -Of note did have endoscopy 03/09/2024 that noted 2 duodenal ulcers which were cauterized and clipped. -Patient was discharged on Protonix and sulcal fate 2. Elevated troponin -Troponin 94, suspect this is due to GI bleed and borderline blood pressure on arrival. Recent echo in March 2023 shows EF 50% with mild global hypokinesis. Mild eccentric MR, mild TR. -Given lack of cardiac symptoms or other specific complaints, does not need further workup. 3. Paroxysmal atrial fibrillation -Patient [facility] in [facility], will hold Eliquis. An order was given for Eliquis to be held for 2 weeks following patient's discharge 4. COPD ? Not in exacerbation; patient is on inhaled budesonide, 5. Acute kidney injury superimposed on chronic kidney disease stage III ? Resuscitated with IV fluids 6. Rheumatoid arthritis ? Patient is on hydroxychloroquine which had been held during his hospital stay resumed on discharge 7. Ulcerative colitis ? Controlled on balsalazide 8. DVT prophylaxis ? Bilateral SCDs Physical Exam Narrative GENERAL: cooperative HEENT: Atraumatic; normocephalic EYES; Anicteric, Normal Conjunctiva NECK; supple, normal thyroid, RESPIRATORY: Diminished to auscultation CARDIOVASCULAR: Regular S1 S2, GI: soft, normoactive bowel sounds, : No Renal angle tenderness; EXTREMITIES: No edema, no clubbing, MUSCULOSKELETAL: no muscle wasting NEURO: Awake; no lateralizing signs. SKIN: No Rash PSYCH; Flat affect Weight / BMI Weight Weight: 72.3 kg Body Mass Index (BMI) 19.3 ABG / Lab / Microbiology Data 03/15/24 04:12 03/15/24 04:12 Laboratory: Laboratory Results - last 24 hr 03/14/24 11:53: Hgb Cancelled, Hct Cancelled, Diff Path Review Cancelled, PT 17.6 H, INR 1.4, APTT 26.0, Sodium 142, Potassium 3.7, Chloride 112 H, Carbon Dioxide 22.0, Anion Gap 7, BUN 37 H, Creatinine 1.43 H, Estim Creat Clear Calc 37.22, Est GFR (MDRD) Af Amer 60, Est GFR (MDRD) Non-Af 50 L, BUN/Creatinine Ratio 25.9 H, Glucose 77, Calcium 8.2 L 03/14/24 : WBC 9.8, RBC 2.95 L, Hgb 9.0 L, Hct 28.6 L, MCV 96.9 H, MCH 30.5, MCHC 31.5 L, RDW Std Deviation 61.6 H, RDW Coeff of Dominick 17.7 H, Plt Count 191, MPV 12.3 H, Immature Gran % (Auto) 1.700 H, Neut % (Auto) 92.1 H, Lymph % (Auto) 2.8 L, [place] % (Auto) 3.0, Eos % (Auto) 0.3, Baso % (Auto) 0.1, Absolute Neuts (auto) 9.0 H, Absolute Lymphs (auto) 0.27 L, Nucleated RBC % 0 03/15/24 04:12: WBC 9.7, RBC 2.71 L, Hgb 8.5 L, Hct 26.4 L, MCV 97.4 H, MCH 31.4, MCHC 32.2, RDW Std Deviation 63.2 H, RDW Coeff of Dominick 18.1 H, Plt Count 175, MPV 12.2 H, Immature Gran % (Auto) 1.700 H, Neut % (Auto) 90.5 H, Lymph % (Auto) 3.9 L, [place] % (Auto) 3.3, Eos % (Auto) 0.5, Baso % (Auto) 0.1, Absolute Neuts (auto) 8.8 H, Absolute Lymphs (auto) 0.38 L, Nucleated RBC % 0, Sodium 143, Potassium 3.4 L, Chloride 115 H, Carbon Dioxide 19.0 L, Anion Gap 8, BUN 33 H, Creatinine 1.30, Estim Creat Clear Calc 40.94, Est GFR (MDRD) Af Amer 67, Est GFR (MDRD) Non-Af 56 L, BUN/Creatinine Ratio 25.4 H, Glucose 84, Calcium 7.7 L Microbiology: Microbiology 03/13/24 17:15 Stool Stool Occult Blood (TABATHA) - Final Occult Blood Positive D/C Instructions Discharge Diet: No restrictions Discharge Activity: Return to Normal Activity Call your doctor if you observe: Fever of 101 or Higher, Shortness of breath, Fainting spells and Chest pain DC O2, CPAP, BIPAP Needs Home O2 Discharge instructions: No Meaningful Use Info Meaningful Use Meaningful Use Diagnoses (Choose all that apply): None applicable Ischemic Stroke Statin Dosing Therapy Reference: STATIN DOSE THERAPY REFERENCE: * Patients > 75 years receive moderate or high dose statin therapy. * Patients 75 years or YOUNGER should receive HIGH intensity statin dose unless contraindicated. You will be required to document reason for non-treatment if statin daily dose does not meet guidelines. HIGH DOSE STATIN THERAPY DAILY Atorvastatin > than or = to 40 mg Rosuvastatin > than or = to 20 mg Amlodipine + Atorvastatin > than or = to 2.5/40 mg Ezetimibe + Simvastatin 10/80 mg Simvastatin 80mg Discharge Plan Admission Admit Date/Time: 03/13/24 18:55 Attending Provider: John Miranda Primary Care Provider: Santino Long Consulting Providers: Sara Malagon; George Velasquez Discharge Orders/Prescriptions Prescriptions: New sucralfate 1 gram Tablet 1 g PO TIDAC Qty: 0 0RF pantoprazole [Protonix] 40 mg tablet,delayed release (DR/EC) 40 mg PO BID 56 Days Qty: 112 0RF Continued (DME) Handicap Placard See Rx Instructions .Route .MEDSUPPLY Qty: 1 0RF Rx Instructions: Good from 09/17/22-09/18/2027 albuterol sulfate [Ventolin HFA] 90 mcg/actuation HFA aerosol inhaler 2 puff INHALATION Q4H PRN (Reason: wheezing) metoprolol succinate 100 mg Tablet Extended Release 24 Hr 100 mg PO DAILY Qty: 0 0RF budesonide 0.5 mg/2 mL Suspension For Nebulization 0.5 mg inhalation BID.RT Qty: 0 0RF hydroxychloroquine 200 mg Tablet 200 mg PO Meza@0800 Qty: 0 0RF hydroxychloroquine 200 mg Tablet 400 mg PO MoTuWeThFrSa@0800 Qty: 0 0RF alum-mag hydroxide-simeth [Mag-Al Plus Extra Strength] 400-400-40 mg/5 mL Suspension 30 ml PO Q6H PRN PRN (Reason: Gastric Burning) Qty: 0 0RF bupropion HCl 150 mg Tablet Extended Release 24 Hr 150 mg PO DAILY Qty: 0 0RF mesalamine 1.2 gram Tablet,Delayed Release (Dr/Ec) 2.4 g PO DAILY Qty: 0 0RF menthol-zinc oxide [Calmoseptine] 0.44-20.6 % Ointment 1 applic topical BID Qty: 0 0RF Protocol: *Topical Application Instructions APPLICATION INSTRUCTIONS: buttocks acetaminophen 500 mg capsule 1,000 mg PO Q6H PRN (Reason: pain) sennosides-docusate sodium [Stimulant Laxative Plus] 8.6-50 mg Tablet 2 tab PO Q6H PRN PRN (Reason: Constipation) nystatin [Nyamyc] 100,000 unit/gram Powder 1 applic topical BID Protocol: *Topical Application Instructions APPLICATION INSTRUCTIONS: apply to abd folds/groin balsalazide 750 mg capsule 2,250 mg PO TID bupropion HCl 75 mg tablet 75 mg PO BID spironolactone 25 mg tablet 25 mg PO DAILY metoprolol succinate 50 mg tablet extended release 24 hr 50 mg PO DAILY Held Eliquis 5 mg Tablet 5 mg PO BID Hold Instructions: Resume on 03/29/24. Discontinued tramadol 50 mg tablet 50 mg PO BID PRN PRN (Reason: pain) Referrals / Follow Up: Santino Long MD [Primary Care Provider] - Within 2 Weeks Disposition Disposition (needs filled in before D/C Order can be placed[facility] Charges/Coding Visit Charges Inpatient E&M: 86954 Disch Hosp >30min
[2024-03-15] MEDS: Potassium Chloride Oral Tablet 20 MEQ 40 MEQ PO (10:28)
--- NOTE | 2024-03-15 10:39 | CASEMGMT ---
Patient is ready for discharge back to TCU today. RICHARD notified Kathryn in TCU. Patient was still on a full liquid. RICHARD asked physician about this. Patient can have a regular diet. RICHARD reviewed patient's previous discharge instructions from his recent stay. RICHARD showed this to the physician. SW wrote in this diet on the instructions and the physician initialed the information. RICHARD went to patient's room. RICHARD notified patient's that patient will be headed back to TCU today. Plan: d/c back to TCU under skilled level of care. Aliza CRUZ
--- NOTE | 2024-03-15 10:43 | NURSING ---
Report given to IRMA Weinberg from TCU at 10:43.
--- NOTE | 2024-03-15 11:26 | OP.EGD_ITS ---
Patient Name: John Arrieta Procedure Date: 03/14/2024 3:58 PM Date of : 1935 Age: 88 Procedure: Upper GI endoscopy Indications: Iron deficiency anemia, Recent gastrointestinal bleeding Providers: Jethro Lucia DO Medicines: Monitored Anesthesia Care Patient Profile: This is an 88 year old male. Refer to note in patient chart for documentation of history and physical. Patient has symptoms. Complications: No immediate complications. Procedure: Pre-Anesthesia Assessment: - Prior to the procedure, a History and Physical was performed, and patient medications and allergies were reviewed. The patient is competent. The risks and benefits of the procedure and the sedation options and risks were discussed with the patient. All questions were answered and informed consent was obtained. Patient identification and proposed procedure were verified by the physician in the pre-procedure area. Mental Status Examination: alert and oriented. Airway Examination: normal oropharyngeal airway and neck mobility. Respiratory Examination: clear to auscultation. CV Examination: normal. Prophylactic Antibiotics: The patient does not require prophylactic antibiotics. Prior Anticoagulants: The patient has taken no anticoagulant or antiplatelet agents except for NSAID medication. ASA Grade Assessment: III - A patient with severe systemic disease. After reviewing the risks and benefits, the patient was deemed in satisfactory condition to undergo the procedure. The anesthesia plan was to use monitored anesthesia care (MAC). Immediately prior to administration of medications, the patient was re-assessed for adequacy to receive sedatives. The heart rate, respiratory rate, oxygen saturations, blood pressure, adequacy of pulmonary ventilation, and response to care were monitored throughout the procedure. The physical status of the patient was re-assessed after the procedure. After obtaining informed consent, the endoscope was passed under direct vision. Throughout the procedure, the patient's blood pressure, pulse, and oxygen saturations were monitored continuously.The upper GI endoscopy was accomplished without difficulty. The patient tolerated the procedure well. The Endoscope was introduced through the mouth, and advanced to the third part of duodenum. Scope In: 4:39:45 PM Scope Out: 4:45:03 PM Total Procedure Duration Time 0 hours 5 minutes 18 seconds Findings: The examined esophagus was normal. A medium-sized hiatal hernia was present. Two oozing cratered duodenal ulcers with a visible vessel were found in the first portion of the duodenum. The largest lesion was 10 mm in largest dimension. Coagulation for hemostasis using heater probe was successful. Estimated blood loss was minimal. Impression: - Normal esophagus. - Medium-sized hiatal hernia. - Normal examined duodenum. 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 Treated with a heater probe. - No specimens collected. Recommendation: - Return patient to referring hospital for ongoing care. - Clear liquid diet. - Continue present medications. Procedure Code(s): --- Professional --- 70023, Small intestinal endoscopy, enteroscopy beyond second portion of duodenum, not including ileum; with control of bleeding (eg, injection, bipolar cautery, unipolar cautery, laser, heater probe, stapler, plasma supervisor finishing) CPT copyright 2021 [employer]. All rights reserved. The codes documented in this report are preliminary and upon system engineer review may be revised to meet current compliance requirements. Jethro Lucia DO 03/15/2024 11:26:30 AM This report has been signed electronically. Number of Addenda: 0 Note Initiated On: 03/14/2024 3:58 PM
--- NOTE | 2024-03-15 11:27 | OP.CCLET_ITS ---
03/15/2024 Santino Long [address] [place] [address] Re : Upper GI endoscopy procedure for John Arrieta Dear Dr. Long This procedure was performed on Thursday, March 14, 2024. My impressions and recommendations are as follows: Impressions : - Normal esophagus. - Medium-sized hiatal hernia. - Normal examined duodenum. 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 Treated with a heater probe. - No specimens collected. Recommendations : - Return patient to referring hospital for ongoing care. - Clear liquid diet. - Continue present medications. My findings are described in the full procedure note, which is enclosed. If I can be of further assistance, please feel free to contact me at . Sincerely, Jethro Friend, 03/15/2024 11:26:30 AM This report has been signed electronically.
== END 2024-03-15 11:07 | disposition skilled nursing facility (03) | DRG 377 ==
LOC: ED 18:56 → PCU 20:07
PROVIDERS: Anesthesiology; Internal Medicine; Internal Medicine Gastroenterology; Admitting Provider Internal Medicine; Emergency Provider Emergency Medicine; PCP Internal Medicine; Visit Provider Internal Medicine
PROC: 0DJ08ZZ Inspection of Upper Intestinal Tract, Via Natural or Artificial Opening Endoscopic (ICD-10-PCS; CPT 43235; principal; 2024-03-14 16:25)
DX: K26.4 Chronic or unspecified duodenal ulcer with hemorrhage (principal); J14 Pneumonia due to Hemophilus influenzae; E46 Unspecified protein-calorie malnutrition; D68.32 Hemorrhagic disorder due to extrinsic circulating anticoagulants; I42.9 Cardiomyopathy, unspecified; I13.0 Hypertensive heart and chronic kidney disease with heart failure and stage 1 through stage 4 chronic kidney disease, or unspecified chronic kidney disease; I48.20 Chronic atrial fibrillation, unspecified; K51.90 Ulcerative colitis, unspecified, without complications; N17.9 Acute kidney failure, unspecified; D62 Acute posthemorrhagic anemia; I50.20 Unspecified systolic (congestive) heart failure; Z68.1 Body mass index [BMI] 19.9 or less, adult; D63.1 Anemia in chronic kidney disease; Z66 Do not resuscitate; E11.22 Type 2 diabetes mellitus with diabetic chronic kidney disease; J44.9 Chronic obstructive pulmonary disease, unspecified; N18.32 Chronic kidney disease, stage 3b; M06.9 Rheumatoid arthritis, unspecified; I08.1 Rheumatic disorders of both mitral and tricuspid valves; F32.A Depression, unspecified; D50.9 Iron deficiency anemia, unspecified; I25.10 Atherosclerotic heart disease of native coronary artery without angina pectoris; I48.0 Paroxysmal atrial fibrillation; K44.9 Diaphragmatic hernia without obstruction or gangrene; F41.9 Anxiety disorder, unspecified; Z87.891 Personal history of nicotine dependence; Z79.51 Long term (current) use of inhaled steroids; R79.89 Other specified abnormal findings of blood chemistry; Z79.01 Long term (current) use of anticoagulants; Z79.899 Other long term (current) drug therapy; Z79.02 Long term (current) use of antithrombotics/antiplatelets; R01.1 Cardiac murmur, unspecified; Z88.8 Allergy status to other drugs, medicaments and biological substances
CPT/HCPCS: 36415; 71045; 80048; 80076; 81001; 82274; 84484; 85014; 85018; 85025; 85610; 85730; 86850; 86900; 86901; 94640; 94668; 97802; 99284; A4216; J2916

== ENCOUNTER 2024-03-15 11:26 | Inpatient (IN) | payer MEDICARE, BC, SELFPAY ==
[2024-03-15 11:33] VITALS: BP 96/65; PULSE 78; RESP 21; TEMP 35.9; O2SAT 91; BMI 19.8
--- NOTE | 2024-03-15 13:42 | PCM.HP.STD ---
HPI - General General Date of Admission: 03/15/24 Date of Service: 03/15/24 Chief Complaint: Here for rehabilitation. HPI Narrative LUCINDA HERNANDEZ, is a 88 Male who presents with followin03/13/2024 [facility] ED TCU resident with weakness. Rehabilitation for covid-19, H. Flu pneumonia. IV fluids for low blood pressure. Digital exam black tarry stool. Creatinine 1.76, BUN 50, c/w SHIMA, Urinalysis negative, Chest X-ray improved. 03/13/2024 Admit [facility]. Serial H&H, IV PPI, Hold Eliquis, consult GI for upper gastrointestinal bleed, acute blood loss anemia. Elevated troponin c/w type 2 ischemic event. Hold Eliquis for atrial fibrillation. 03/14/2024 Weakness, variable heart rate, weight loss. Hemoccult positive, no transfusion necessary. IV iron, Hold Eliquis for acute blood loss anemia. IV fluids for acute kidney injury. 03/15/2024 Dr. Lucia EGD normal esophagus, medium-sized hiatal hernia, normal duodenum, 2 bleeding angiodysplastic lesions in jejunum, treated with heater probe. 03/15/2024 Hold Eliquis for 2 weeks due to UGIB, then restart. 03/15/2024 Admit to TCU with debility, here for rehabilitation, strengthening, prior to discharge home with . [facility] Medical History (Updated 03/15/24 @ 13:[address] Bishop Anderson MD) Elevated troponin SHIMA (acute kidney injury) Acute hypoxic respiratory failure Failure of outpatient treatment Pneumonia due to Haemophilus influenzae Atrial fibrillation with RVR Hypoxemia COPD (chronic obstructive pulmonary disease) Wears hearing aid Alcohol use Skin tear Walker as ambulation aid History of renal disease Back pain TIA (transient ischemic attack) Dietary restriction Difficulty swallowing On home oxygen therapy Shortness of breath on exertion History of echocardiogram History of stress test Cardiology follow-up encounter Pneumonia Former tobacco use CAD (coronary artery disease) Atrial fibrillation/flutter CKD (chronic kidney disease), stage III Anticoagulated 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 Cardiomyopathy Lung nodules BPH (benign prostatic hyperplasia) Rheumatoid arthritis Essential hypertension Hypertension HTN (hypertension) Colitis Home Medications ?Medication ?Instructions ?Recorded ?Last Taken ?Type Handicap Placard #1 ea 09/17/22 Unknown Rx albuterol sulfate 90 mcg/actuation 2 puff inhalation Q4H PRN wheezing 02/27/24 Unknown History aerosol inhaler (Ventolin HFA) aluminum-mag hydroxide-simethicone 30 ml PO Q6H PRN PRN Gastric 03/06/24 Unknown Rx 400 mg-400 mg-40 mg/5 mL oral susp Burning #0 mL (Mag-Al Plus Extra Strength) budesonide 0.5 mg/2 mL suspension 0.5 mg (2 mL) inhalation BID.RT 03/06/24 03/15/24 Rx for nebulization SOB #0 mL bupropion HCl 150 mg 24 hr tablet, 150 mg PO DAILY Mood #0 tabs 03/06/24 03/15/24 Rx extended release hydroxychloroquine 200 mg tablet 200 mg PO Meza@0800 Rheumatoid 03/06/24 03/11/24 Rx Arthritis #0 tabs hydroxychloroquine 200 mg tablet 400 mg (2 x 200 mg) PO 03/06/24 03/13/24 Rx [id number]@0800 Rheumatoid Arthritis #0 tabs menthol 0.44 %-zinc oxide 20.6 % 1 applic topical BID Skin 03/06/24 Unknown Rx topical ointment (Calmoseptine) Irritation #0 grams mesalamine 1.2 gram tablet,delayed 2.4 g (2 x 1.2 gram) PO DAILY 03/06/24 03/15/24 Rx release Ulcerative colitis #0 tabs metoprolol succinate 100 mg 100 mg PO DAILY BP #0 tabs 03/06/24 03/15/24 Rx tablet,extended release 24 hr acetaminophen 500 mg capsule 1,000 mg PO Q6H PRN pain 03/13/24 Unknown History apixaban 5 mg tablet (Eliquis) 5 mg PO BID Blood Thinner 03/13/24 03/13/24 History balsalazide 750 mg capsule 2,250 mg PO TID ulcerative colitis 03/13/24 Unknown History bupropion HCl 75 mg tablet 75 mg PO BID depression 03/13/24 Unknown History metoprolol succinate 50 mg 50 mg PO DAILY bp 03/13/24 Unknown History tablet,extended release 24 hr nystatin 100,000 unit/gram topical 1 applic topical BID Skin 03/13/24 03/13/24 History powder (Nyamyc) Irritation sennosides 8.6 mg-docusate sodium 2 tab PO Q6H PRN PRN Constipation 03/13/24 Unknown History 50 mg tablet (Stimulant Laxative Plus) spironolactone 25 mg tablet 25 mg PO DAILY fluid 03/13/24 Unknown History pantoprazole 40 mg tablet,delayed 40 mg PO BID GERD 8 weeks #112 tabs 03/15/24 Unknown Rx release (Protonix) sucralfate 1 gram tablet 1 g PO TIDAC Stomach #0 tabs 03/15/24 03/15/24 Rx Allergy/AdvReac Type Severity Reaction Status Date / Time etanercept (From Enbrel) AdvReac Rash Verified 03/13/24 13:34 Family History Mother Diabetes CAD (coronary artery disease) Myocardial infarction, Onset Age: 82 Father CAD (coronary artery disease) Brother CAD (coronary artery disease) Hypertension Surgical History History of cardiac catheterization History of cardioversion History of bilateral cataract extraction History of foot surgery History of hernia repair History of arthroscopy of knee History of bilateral knee replacement Social History household members: spouse housing: house Smoking Status: Former smoker how long ago did patient quit smokin years ago alcohol intake: current alcohol intake frequency: 0-2 drinks per day Alcohol type: beer details: wine substance use type: does not use caffeine: Yes Type: coffee Number of servings: 2 ROS Constitutional Constitutional: Denies chills, fever(s) or weight gain ENT HEENT: Denies headache(s), nasal congestion or nasal discharge Cardiovascular Cardiovascular: Denies chest pain or palpitations Respiratory/Chest Respiratory/Chest: Denies cough, excessive phlegm production or shortness of breath with exertion Gastrointestinal Gastrointestinal: Denies abdominal pain, nausea or vomiting Genitourinary Genitourinary: Denies dysuria Musculoskeletal Musculoskeletal: Denies joint pain or joint swelling Integumentary Integumentary: Denies rash or wounds Neurologic Neurologic: Denies focal weakness, numbness or tingling Psychiatric Psychiatric: Denies anxiety, auditory hallucinations, depression, homicidal ideation or suicidal ideation Vital Signs Vital Signs Vital Signs: 03/15/24 11:33 03/15/24 11:33 Temperature 96.7 F L Temperature Source Temporal Pulse Rate 78 Pulse Rhythm Irregular Pulse Strength Normal (2+) Respiratory Rate 21 H Respiratory Effort Normal Non-Labored Respiratory Depth Normal Respiratory Pattern Normal Blood Pressure 96/65 Blood Pressure Mean 75 Blood Pressure Source Monitor Pulse Ox 91 Oxygen Delivery Method Room Air Nasal Cannula Oxygen Flow Rate (L/min) 2 2 Weight Weight: 73.845 kg Body Mass Index (BMI) 19.8 Physical Exam Const alert General Appearance: cooperative HEENT normocephalic Eyes PERRL and EOMs intact bilaterally Neck supple, no JVD and no carotid bruits Resp normal respiratory effort, normal air movement and clear to auscultation bilaterally Cardio regular rate and regular rhythm GI normal to inspection, nondistended, normoactive bowel sounds, non-tender and non-distended Extremity normal capillary refill General Extremity: Negative for edema Skin no rashes or lesions noted General Skin Exam: no breakdown Psych affect normal Appearance: appropriate Assessment & Plan Assessment/Plan (1) Debility: (2) Upper gastrointestinal bleed: (3) ABLA (acute blood loss anemia): (4) Angiodysplasia of small intestine, except duodenum with bleeding: (5) Elevated troponin: (6) SHIMA (acute kidney injury): (7) COPD (chronic obstructive pulmonary disease): (8) Atrial fibrillation: QUALIFIERS: Atrial fibrillation type: persistent (not longstanding) Qualified Code(s): I48.19 - Other persistent atrial fibrillation (9) Depression: (10) Rheumatoid arthritis: (11) Colitis: PLAN: Plan 88 year old male with below past medical history hospitalized for acute blood loss anemia 2/2 upper gastrointestinal bleed 2/2 angiodysplastic lesions of jejunum, complicated by elevated troponin, acute kidney injury, atrial fibrillation, admitted to TCU with debility, here for rehabilitation, strengthening, prior to discharge home with . Debility - PT/OT. Dysphagia - ST. Pain - Tylenol 1000mg q6 prn pain (1-10). Bowel - senna/colace 2 tablets bid. Adult immunization - Administer pneumonia vaccine, covid vaccine, flu vaccine as appropriate. DVT prophylaxis - Eliquis. COPD - Budesonide 0.5mg inhaled bid, Albuterol 2.5mg q4 prn. Atrial fibrillation - Metoprolol succinate 100mg daily, Eliquis 5mg bid, last time Eliquis held 3 days, he had a stroke. Colitis - Plaquenil 400mg 6 days per week, 200mg 1 day per week, Mesalamine 2.4gm daily. Depression - Bupropion 150mg am, stable chronic joint terminal attack controller use, GDR not recommended. Indigestion - Mylanta II 30mL q6 prn. Skin irritation - Calmoseptine topical bid. Tinea Corporis - Nystatin powder topical bid. Duodenal ulcer - Pantoprazole 40mg bid, Sucralfate 1gm tidac. Edema - Aldactone 25mg daily.
[2024-03-15] MEDS: Sucralfate 1 GM Tablet PO (17:09)
[2024-03-15] MEDS: APIXABAN 5 MG TABLET PO (18:23)
[2024-03-15 19:17] VITALS: PULSE 84; RESP 18; O2SAT 95
[2024-03-15] MEDS: Budesonide Respules 0.5 MG/2 ML AMPUL.NEB. INHALATION (19:17)
[2024-03-15] MEDS: Menthol/Lanolin/Calamine/Znox 113 GM Tube 1 APPLIC TOPICAL (19:58)
[2024-03-15] MEDS: Nystatin Powder 15gm Bottle 1 APPLIC TOPICAL (19:58)
[2024-03-15] MEDS: Pantoprazole Sodium 40 MG Tablet PO (20:00)
[2024-03-15] MEDS: Senna/Docusate Sodium 1 Tablet 2 TABLET PO (20:00)
[2024-03-16] MEDS: Sucralfate 1 GM Tablet PO ×3 (06:29→18:23)
[2024-03-16 07:18] LABS: Absolute Lymphocyte Count 0.42 X10^3/uL (0.83-4.51); Absolute Neutrophil Count 8.2 X10^3/uL (2.0-7.7); Basophil# 0.01 X10^3/uL; Basophil% 0.1 % (0-1); Eosinophil# 0.03 X10^3/uL; Eosinophils% 0.3 % (0-5); Hematocrit 27.3 % (40-54); Hemoglobin 8.8 g/dL (13.0-16.5); Lymphocyte # 0.42 X10^3/ul (0.83-4.51); Lymphocyte % 4.6 % (19-41); Mean Corp Hgb Conc 32.2 g/dL (32-36); Mean Corpuscular Hgb 31.1 pg (27.0-32.0); Mean Corpuscular Volume 96.5 fL (80-94); Mean Platelet Vol. 11.3 fl (6.2-12.0); Monocyte# 0.28 X10^3/uL; Monocyte% 3.1 % (0-10); NRBC Flagged by Analyzer 0.2 % (0-5); Neutrophil # 8.21 X10^3/uL (2.7-7.7); Neutrophil % 90.4 % (47-70); POSITIVE DIFFERENTIAL YES; Platelet Count 175 K/mm3 (150-450); RBC Distribution Width CV 18.2 % (11.6-14.6); RBC Distribution Width SD 63.2 fl (35.1-43.9); Red Blood Count 2.83 M/mm3 (4.6-6.2); White Blood Count 9.1 K/mm3 (4.4-11.0)
[2024-03-16 08:00] LABS: Anion Gap 7 (5-15); BUN 30 mg/dL (7-18); BUN/Creat Ratio 22.6 RATIO (10-20); Chloride 116 mmol/L (98-107); Creatinine, Serum 1.33 mg/dL (0.70-1.30); EST Glomerular Filtration Rate 54 mL/min (>60); Est Glom Filt Rate - Afr Amer 65 mL/min (>60); Estimated Creatinine Clearance 40.87 ml/min; Glucose 109 mg/dL (74-106); Potassium 3.9 mmol/L (3.5-5.1); Sodium Level 142 mmol/L (136-145)
[2024-03-16 08:18] VITALS: PULSE 72; RESP 22; O2SAT 94
[2024-03-16] MEDS: Budesonide Respules 0.5 MG/2 ML AMPUL.NEB. INHALATION (08:18)
[2024-03-16] MEDS: Albuterol 2.5 MG/3 ML VIAL.NEB. INHALATION (08:18)
--- NOTE | 2024-03-16 08:55 | NURSING ---
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 has stated he prefers to just rest and spend time w/his , family and friends when not in therapy. He was asked what his activities where at home and stated he just stayed home with his . will be here daily with him and bring items from home that he may want. Staff will encourage social activities, remind him of weekly activities and respect his right to say no.
[2024-03-16] MEDS: Hydroxychloroquine 200 MG Tablet 400 MG PO (09:23)
[2024-03-16] MEDS: Spironolactone 25 MG Tablet PO (09:23)
[2024-03-16] MEDS: Menthol/Lanolin/Calamine/Znox 113 GM Tube 1 APPLIC TOPICAL ×2 (09:23→20:59)
[2024-03-16] MEDS: APIXABAN 5 MG TABLET PO ×2 (09:23→20:59)
[2024-03-16 09:24] VITALS: PULSE 77
[2024-03-16] MEDS: buPROPion (XL) 150 MG TABLET.XL PO (09:24)
[2024-03-16] MEDS: Nystatin Powder 15gm Bottle 1 APPLIC TOPICAL ×2 (09:24→21:00)
[2024-03-16] MEDS: Senna/Docusate Sodium 1 Tablet 2 TABLET PO ×2 (09:24→20:58)
[2024-03-16] MEDS: Metoprolol(XL)Succ 100 MG Tablet PO (09:24)
[2024-03-16] MEDS: Pantoprazole Sodium 40 MG Tablet PO ×2 (09:24→20:59)
[2024-03-16] MEDS: Mesalamine 1.2 GM Tablet 2.4 GM PO (09:24)
[2024-03-16 10:53] VITALS: BP 100/67; PULSE 77; RESP 18; TEMP 36.3; O2SAT 94
[2024-03-16] MEDS: Tuberculin,Purif.prot.deriv. 50 TU/ML Vial 0.1 ML ID (11:15)
--- NOTE | 2024-03-16 13:29 | CASEMGMT ---
Social Work SW notified by JOURNEYMAN MOLDER that and pt refused ST and expressed possibly not wanting to continue with therapy. - SW met with patient, and friend at bedside. Discussed with pt his wishes for care. Pt denied continuing with therapy and his wishes align with DNR-CC and hospice care. is in agreement with pt's wish to rest and stop therapy. SW discussed hospice services further. Pt and agreeable. 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 SW discussed SNF placement at [facility]. expressed understanding and will speak with pt further about choices. 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 inquired about timeframe and insurance coverage. SW explained to allow a smooth DC plan and today being Tuesday, will continue to cover pt's stay, and this worker can refer to SNFs on Tuesday, then transfer pt once there is an accepting facility. Pt would stop therapy during stay and can assist with comfort meds in the meantime. agreeable and appreciative of assistance. SW provided with list of SNFs including quality and resource data via [employer]. SW sent secure email to [facility] with referral. Hospice to contact to schedule assessment. IDT updated. Plan: DC to SNF with [facility], date and SNF TBD. Nan Guthrie, SIM COSMEW
[2024-03-16] MEDS: Acetaminophen 500 MG Tablet 1000 MG PO (13:53)
--- NOTE | 2024-03-16 14:50 | PHA.CONS_ITS ---
Documented by User: Ro Huynh 03/16/24 15:50 TCU RX Drug Regimen Review Subjective/Objective Subjective/Objective Subjective: TCU Admission. 88 YOM presented to ER from TCU with weakness. Hospitalized for acute blood loss anemia 2/2 upper gastrointestinal bleed 2/2 a ngiodysplastic lesions of jejunum, complicated by elevated troponin, acute kidney injury, atrial fibrillation. Admitted to TCU with debility for strengthening and rehabilitation. Objective: Allergies etanercept (From Enbrel) Adverse Reaction (Verified 03/13/24 13:34) Rash Current Medications Generic Name Dose Route Start Last Admin Trade Name Freq PRN Reason Stop Dose Admin Acetaminophen 1,000 mg 03/15/24 11:45 03/16/24 13:53 Acetaminophen 500 Mg Tablet PO 1,000 mg Q6H PRN PRN Administration Pain Score 1-10 Al Hydroxide/Mg Hydroxide 30 ml 03/15/24 11:45 Mag Hydrox/Al Hydrox/Simeth 30 Ml Udc PO Q6H PRN PRN Gastric Burning Albuterol Sulfate 2.5 mg 03/15/24 13:03 03/16/24 08:18 Albuterol 2.5 Mg/3 Ml Vial.Neb. INHALATION 2.5 mg Q4H PRN PRN Administration wheezing Apixaban 5 mg 03/15/24 17:40 03/16/24 09:23 Apixaban 5 Mg Tablet PO 5 mg BID CARMEN Administration Atropine Sulfate 1 drp 03/16/24 14:05 Atropine Sulfate 1% 2 Ml Bottle OPHTHALMIC Q3H PRN PRN CHEST CONGESTION/SECRETIONS Budesonide 0.5 mg 03/15/24 11:45 03/16/24 08:18 Budesonide Respules 0.5 Mg/2 Ml Ampul.Neb. INHALATION 0.5 mg BID.RT CARMEN Administration Bupropion HCl 150 mg 03/16/24 10:00 03/16/24 09:24 Bupropion (Xl) 150 Mg Tablet.Xl PO 150 mg DAILY CARMEN Administration Calamine/Phenol 1 applic 03/15/24 19:45 03/16/24 09:23 Menthol/Lanolin/Calamine/Znox 113 Gm Tube TOPICAL 1 applic BID CARMEN Administration Protocol Hydroxychloroquine Sulfate 200 mg 03/18/24 08:00 Hydroxychloroquine 200 Mg Tablet PO Meza@0800 CARMEN Hydroxychloroquine Sulfate 400 mg 03/16/24 08:00 03/16/24 09:23 Hydroxychloroquine 200 Mg Tablet PO 400 mg MoTuWeThFrSa@0800 CARMEN Administration Sodium Chloride 100 mls @ 15 mls/hr 03/15/24 12:36 IV .Q6H40M PRN Saline Flush Sodium Chloride 100 mls @ 15 mls/hr 03/15/24 12:36 IV .Q6H40M PRN Additional IVPB Infusion Lorazepam 1 mg 03/16/24 14:05 Lorazepam 2 Mg/Ml Bottle SL Q4H PRN PRN ANXIETY/RESTLESSNESS/SLEEP Mesalamine 2.4 gm 03/16/24 10:00 03/16/24 09:24 Mesalamine 1.2 Gm Tablet PO 2.4 gm DAILY CARMEN Administration Metoprolol Succinate 100 mg 03/16/24 10:00 03/16/24 09:24 Metoprolol(Xl)Succ 100 Mg Tablet PO 100 mg DAILY CARMEN Administration Protocol Morphine Sulfate 10 mg 03/16/24 14:05 Morphine (Oral Solution) 10mg/0.5ml Syringe SL/PO Q1H PRN PRN Pain Score 1-10 Nystatin 1 applic 03/15/24 19:45 03/16/24 09:24 Nystatin Powder 15gm Bottle TOPICAL 1 applic BID CARMEN Administration Protocol Pantoprazole Sodium 40 mg 03/15/24 22:00 03/16/24 09:24 Pantoprazole Sodium 40 Mg Tablet PO 40 mg BID CARMEN Administration Senna/Docusate Sodium 2 tablet 03/15/24 22:00 03/16/24 09:24 Senna/Docusate Sodium 1 Tablet PO 2 tablet BID CARMEN Administration Sodium Chloride 10 - 40 ml 03/15/24 12:36 0.9% Saline Lock 10 Ml Syringe IV UD PRN SALINE FLUSH Spironolactone 25 mg 03/16/24 10:00 03/16/24 09:23 Spironolactone 25 Mg Tablet PO 25 mg DAILY CARMEN Administration Protocol Sucralfate 1 gm 03/15/24 16:45 03/16/24 11:15 Sucralfate 1 Gm Tablet PO 1 gm TIDAC CARMEN Administration Tuberculin PPD 0.1 ml 03/23/24 10:00 Tuberculin,Purif.Prot.Deriv. 50 Tu/Ml Vial ID 03/23/24 10:01 X1 ONE Problem List SHIMA (acute kidney injury) (Acute) Elevated troponin (Acute) Angiodysplasia of small intestine, except duodenum with bleeding (Acute) Upper gastrointestinal bleed (Acute) ABLA (acute blood loss anemia) (Acute) COPD (chronic obstructive pulmonary disease) (Chronic) Depression (Acute) Debility (Acute) Atrial fibrillation (Chronic) Colitis (Acute) Rheumatoid arthritis (Acute) Vital Signs Temp Pulse Resp BP Pulse Ox O2 Del Method O2 Flow Rate 97.3 F L 77 18 100/67 94 Nasal Cannula 2.5 03/16/24 10:53 03/16/24 10:53 03/16/24 10:53 03/16/24 10:53 03/16/24 10:53 03/16/24 10:53 03/16/24 10:53 Oxygen Flow Rate (L/min) 2.5 Oxygen Delivery Method Nasal Cannula Weight: 73.845 kg Body Mass Index (BMI) 19.8 Sodium 142 mmol/L (136-145) 03/16/24 07:00 Potassium 3.9 mmol/L (3.5-5.1) 03/16/24 07:00 Chloride 116 mmol/L (98-107) H 03/16/24 07:00 Carbon Dioxide 19.0 mmol/L (21.0-32.0) L 03/16/24 07:00 Anion Gap 7 (5-15) 03/16/24 07:00 BUN 30 mg/dL (7-18) H 03/16/24 07:00 Creatinine 1.33 mg/dL (0.70-1.30) H 03/16/24 07:00 Est GFR (MDRD) Af Amer 65 mL/min (>60) 03/16/24 07:00 Est GFR (MDRD) Non-Af 54 mL/min (>60) L 03/16/24 07:00 BUN/Creatinine Ratio 22.6 RATIO (10-20) H 03/16/24 07:00 Glucose 109 mg/dL (74-106) H 03/16/24 07:00 Assessment/Plan: 1. Pain: acetaminophen 1000mg PO Q6H PRN pain 1-10 and morphine 10mg/0.5mL oral solution SL/PO Q1H PRN pain 1-10 (comfort care). Resident has had 1 dose of acetaminophen for generalized pain score of 5 and no doses of morphine. Please continue to monitor for increased pain and PRN usage. 2. Bowel: senna/docusate 2T PO BID. Please continue to monitor for PRN usage and constipation. Last documented bowel movement was 03/15. 3. Atrial fibrillation: metoprolol succinate 100mg PO daily and apixaban 5mg PO BID. Please continue to monitor for S/S of bleeding, BP (last 100/67), HR (last 77) and hemoglobin (last 8.8g/dL). 4. Colitis: mesalamine 2.4gm PO daily. Please continue to monitor for GI side effects, bleeding, hemorrhoids. 5. Rheumatoid arthritis: hydroxychloroquine 200mg PO Sundays and 400mg all other days. Please continue to monitor for CBC, vision changes, and rash. 6. COPD: budesonide 0.5mg nebulization BID, albuterol 2.5mg nebulized solution Q4H PRN wheezing. One PRN dose has have been given. Please continue to monitor for S/S of wheezing, thrush and PRN usage. 7. Indigestion: Mylanta II 30mL PO Q6H PRN gastric burning. Please continue to monitor for indigestion and PRN usage. No doses given yet. 8. Skin irritation/tinea corporis: Calmoseptine topical bid and Nystatin powder topical tid. 9. Duodenal ulcer: pantoprazole 40mg PO BID and sucralfate 1gm PO TIDAC. Please continue to monitor for bleeding, constipation and diarrhea (BEERs). 10. Edema: spironolactone 25mg PO daily. Please continue to monitor for edema, potassium (last 3.9mmol/L) and renal function. 11. Secretions: atropine 1% ophthalmic solution 1gtt SL Q3H PRN chest congestion/secretions (comfort care). No doses given yet. Please continue to monitor for PRN usage. Assessment/Plan for indications treated with psychotropic medications: 1. Depression: bupropion XL 150mg PO daily. Please see physician note regarding GDR. Please continue to monitor for suicidal ideation (black box warning), sodium (last 142mmol/L), agitation, memory impairment and confusion. 2. Anxiety/restlessness/sleep: lorazepam 2mg/mL oral solution 1mg SL Q4H PRN anxiety/restlessness/sleep (comfort care). GDR not appropriate as this medication is for comfort care. No doses given yet. Please continue to monitor for PRN usage and anxiety/restlessness/sleep. Medical chart and medication regimen reviewed. The following medication irregularities or issues were identified: None Date Date of Note: 03/16/24 Documented by User: Dr. Bishop Anderson MD 03/16/24 16:01 TCU RX Drug Regimen Review Provider Comments Provider responsibility Provider Comments to Recommendations by Pharmacy Agree
[2024-03-16 21:07] VITALS: O2SAT 94
[2024-03-17] MEDS: Sucralfate 1 GM Tablet PO ×3 (06:00→16:52)
[2024-03-17 07:50] VITALS: PULSE 77; RESP 19; O2SAT 93
[2024-03-17] MEDS: Budesonide Respules 0.5 MG/2 ML AMPUL.NEB. INHALATION (07:50)
[2024-03-17 08:22] VITALS: BP 106/78; PULSE 77
[2024-03-17] MEDS: Mesalamine 1.2 GM Tablet 2.4 GM PO (08:22)
[2024-03-17] MEDS: Spironolactone 25 MG Tablet PO (08:22)
[2024-03-17] MEDS: Metoprolol(XL)Succ 100 MG Tablet PO (08:22)
[2024-03-17] MEDS: Pantoprazole Sodium 40 MG Tablet PO ×2 (08:23→22:13)
[2024-03-17] MEDS: Hydroxychloroquine 200 MG Tablet 400 MG PO (08:23)
[2024-03-17] MEDS: Senna/Docusate Sodium 1 Tablet 2 TABLET PO ×2 (08:23→22:13)
[2024-03-17] MEDS: APIXABAN 5 MG TABLET PO ×2 (08:23→22:13)
[2024-03-17] MEDS: buPROPion (XL) 150 MG TABLET.XL PO (08:24)
[2024-03-17] MEDS: Menthol/Lanolin/Calamine/Znox 113 GM Tube 1 APPLIC TOPICAL ×2 (08:24→22:13)
[2024-03-17] MEDS: Nystatin Powder 15gm Bottle 1 APPLIC TOPICAL ×2 (08:25→22:13)
[2024-03-17] MEDS: morphine (oral solution) 10MG/0.5ML Syringe 10 MG SL/PO (10:08)
[2024-03-17 16:00] VITALS: PULSE 110; RESP 16; TEMP 36.4; O2SAT 96
--- NOTE | 2024-03-18 05:36 | PCA ---
STIPPLER assisted patient in washing up this morning. Bed bath was given, and hair was washed. Bed linens changed at this time.
--- NOTE | 2024-03-18 08:25 | DS.PCM_ITS ---
Providers Date of Admission: 03/15/24 Primary Care Physician: Dr. Santino Long MD Consultations 03/16/24 13:59 Consult: Hospice / Palliative Care Routine Consulting Provider: [facility] Reason for Consult: HOSPICE: DX: COPD, CHF, respiratory failure EMERGENT Consult: No MD Notified: Yes Date Notified: 03/16/24 Time Notified: 13:59 Method of Notification: Verbal Reason For Visit: GI BLEED Diagnosis Discharge Diagnosis (1) Debility: Status: Acute Code(s): R53.81 - Other malaise (2) Upper gastrointestinal bleed: Status: Acute Code(s): K92.2 - Gastrointestinal hemorrhage, unspecified (3) ABLA (acute blood loss anemia): Status: Acute Code(s): D62 - Acute posthemorrhagic anemia (4) Angiodysplasia of small intestine, except duodenum with bleeding: Status: Acute Code(s): K55.21 - Angiodysplasia of colon with hemorrhage (5) Elevated troponin: Status: Acute Code(s): R79.89 - Other specified abnormal findings of blood chemistry (6) SHIMA (acute kidney injury): Status: Acute Code(s): N17.9 - Acute kidney failure, unspecified (7) COPD (chronic obstructive pulmonary disease): Status: Chronic Code(s): J44.9 - Chronic obstructive pulmonary disease, unspecified (8) Atrial fibrillation: Status: Chronic Code(s): I48.91 - Unspecified atrial fibrillation Qualifiers: Atrial fibrillation type: persistent (not longstanding) Qualified Code(s): I48.19 - Other persistent atrial fibrillation (9) Depression: Status: Acute Code(s): F32.A - Depression, unspecified (10) Rheumatoid arthritis: Status: Acute Code(s): M06.9 - Rheumatoid arthritis, unspecified (11) Colitis: Status: Acute Code(s): K52.9 - Noninfective gastroenteritis and colitis, unspecified Plan 88 year old male with below past medical history hospitalized for acute blood loss anemia 2/2 upper gastrointestinal bleed 2/2 angiodysplastic lesions of jejunum, complicated by elevated troponin, acute kidney injury, atrial fibrillation, admitted to TCU with debility, here for rehabilitation, strengthening, prior to discharge home with . * Debility - PT/OT. * Dysphagia - ST. * Pain - Tylenol 1000mg q6 prn pain (1-10). * Bowel - senna/colace 2 tablets bid. * Adult immunization - Administer pneumonia vaccine, covid vaccine, flu vaccine as appropriate. * DVT prophylaxis - Eliquis. * COPD - Budesonide 0.5mg inhaled bid, Albuterol 2.5mg q4 prn. * Atrial fibrillation - Metoprolol succinate 100mg daily, Eliquis 5mg bid, last time Eliquis held 3 days, he had a stroke. * Colitis - Plaquenil 400mg 6 days per week, 200mg 1 day per week, Mesalamine 2.4gm daily. * Depression - Bupropion 150mg am, stable chronic group home use, GDR not recommended. * Indigestion - Mylanta II 30mL q6 prn. * Skin irritation - Calmoseptine topical bid. * Tinea Corporis - Nystatin powder topical bid. * Duodenal ulcer - Pantoprazole 40mg bid, Sucralfate 1gm tidac. * Edema - Aldactone 25mg daily. Medications at Discharge Home Medications Handicap Placard #1 ea 09/17/22 albuterol sulfate 90 mcg/actuation aerosol inhaler (Ventolin HFA) 2 puff inhalation Q4H PRN wheezing 02/27/24 aluminum-mag hydroxide-simethicone 400 mg-400 mg-40 mg/5 mL oral susp (Mag-Al Plus Extra Strength) 30 ml PO Q6H PRN PRN Gastric Burning #0 mL 03/06/24 budesonide 0.5 mg/2 mL suspension for nebulization 0.5 mg (2 mL) inhalation BID.RT SOB #0 mL 03/06/24 bupropion HCl 150 mg 24 hr tablet, extended release 150 mg PO DAILY Mood #0 tabs 03/06/24 hydroxychloroquine 200 mg tablet 200 mg PO Meza@0800 Rheumatoid Arthritis #0 tabs 03/06/24 hydroxychloroquine 200 mg tablet 400 mg (2 x 200 mg) PO MoTuWeThFrSa@0800 Rheumatoid Arthritis #0 tabs 03/06/24 menthol 0.44 %-zinc oxide 20.6 % topical ointment (Calmoseptine) 1 applic topical BID Skin Irritation #0 grams 03/06/24 mesalamine 1.2 gram tablet,delayed release 2.4 g (2 x 1.2 gram) PO DAILY Ulcerative colitis #0 tabs 03/06/24 metoprolol succinate 100 mg tablet,extended release 24 hr 100 mg PO DAILY BP #0 tabs 03/06/24 acetaminophen 500 mg capsule 1,000 mg PO Q6H PRN pain 03/13/24 apixaban 5 mg tablet (Eliquis) 5 mg PO BID Blood Thinner 03/13/24 balsalazide 750 mg capsule 2,250 mg PO TID ulcerative colitis 03/13/24 bupropion HCl 75 mg tablet 75 mg PO BID depression 03/13/24 metoprolol succinate 50 mg tablet,extended release 24 hr 50 mg PO DAILY bp 03/13/24 nystatin 100,000 unit/gram topical powder (Nyamyc) 1 applic topical BID Skin Irritation 03/13/24 sennosides 8.6 mg-docusate sodium 50 mg tablet (Stimulant Laxative Plus) 2 tab PO Q6H PRN PRN Constipation 03/13/24 spironolactone 25 mg tablet 25 mg PO DAILY fluid 03/13/24 pantoprazole 40 mg tablet,delayed release (Protonix) 40 mg PO BID GERD 8 weeks #112 tabs 03/15/24 sucralfate 1 gram tablet 1 g PO TIDAC Stomach #0 tabs 03/15/24 Hospital Course Operations None Procedures None Summary of Care Provided Minutes Spent on Discharge: 15 Hospital Course: 88 year old male with below past medical history hospitalized for acute blood loss anemia 2/2 upper gastrointestinal bleed 2/2 angiodysplastic lesions of jejunum, complicated by elevated troponin, acute kidney injury, atrial fibrillation, admitted to TCU with debility, here for rehabilitation, strengthening, prior to discharge home with . Resident dying. Resided 03/18/2024 at 8:15AM. Weight / BMI Weight Weight: 73.845 kg Body Mass Index (BMI) 19.8 ABG / Lab / Microbiology Data 03/16/24 07:00 03/16/24 07:00 D/C Instructions DC O2, CPAP, BIPAP Needs Home O2 Discharge instructions: No Meaningful Use Info Meaningful Use Meaningful Use Diagnoses (Choose all that apply): None applicable Ischemic Stroke Statin Dosing Therapy Reference: STATIN DOSE THERAPY REFERENCE: * Patients > 75 years receive moderate or high dose statin therapy. * Patients 75 years or YOUNGER should receive HIGH intensity statin dose unless contraindicated. You will be required to document reason for non-treatment if statin daily dose does not meet guidelines. HIGH DOSE STATIN THERAPY DAILY Atorvastatin > than or = to 40 mg Rosuvastatin > than or = to 20 mg Amlodipine + Atorvastatin > than or = to 2.5/40 mg Ezetimibe + Simvastatin 10/80 mg Simvastatin 80mg Discharge Plan Admission Admit Date/Time: 03/15/24 11:26 Primary Reason for Your Visit: Debility. Attending Provider: Bishop Anderson Chi Primary Care Provider: Santino Long Consulting Providers: John Urbina; Bing Bell; Libra White; Teresa Connor; Trang Cline NP; Lilian Jason Instructions Additional Instructions / Restrictions: Resident . Discharge Orders/Prescriptions Prescriptions: No Action (DME) Handicap Placard See Rx Instructions .Route .MEDSUPPLY Qty: 1 0RF Rx Instructions: Good from 09/17/22-09/18/2027 albuterol sulfate [Ventolin HFA] 90 mcg/actuation HFA aerosol inhaler 2 puff INHALATION Q4H PRN (Reason: wheezing) metoprolol succinate 100 mg Tablet Extended Release 24 Hr 100 mg PO DAILY Qty: 0 0RF budesonide 0.5 mg/2 mL Suspension For Nebulization 0.5 mg inhalation BID.RT Qty: 0 0RF hydroxychloroquine 200 mg Tablet 200 mg PO Meza@0800 Qty: 0 0RF hydroxychloroquine 200 mg Tablet 400 mg PO MoTuWeThFrSa@0800 Qty: 0 0RF alum-mag hydroxide-simeth [Mag-Al Plus Extra Strength] 400-400-40 mg/5 mL Suspension 30 ml PO Q6H PRN PRN (Reason: Gastric Burning) Qty: 0 0RF bupropion HCl 150 mg Tablet Extended Release 24 Hr 150 mg PO DAILY Qty: 0 0RF mesalamine 1.2 gram Tablet,Delayed Release (Dr/Ec) 2.4 g PO DAILY Qty: 0 0RF menthol-zinc oxide [Calmoseptine] 0.44-20.6 % Ointment 1 applic topical BID Qty: 0 0RF Protocol: *Topical Application Instructions APPLICATION INSTRUCTIONS: buttocks acetaminophen 500 mg capsule 1,000 mg PO Q6H PRN (Reason: pain) sennosides-docusate sodium [Stimulant Laxative Plus] 8.6-50 mg Tablet 2 tab PO Q6H PRN PRN (Reason: Constipation) nystatin [Nyamyc] 100,000 unit/gram Powder 1 applic topical BID Protocol: *Topical Application Instructions APPLICATION INSTRUCTIONS: apply to abd folds/groin Eliquis 5 mg Tablet 5 mg PO BID balsalazide 750 mg capsule 2,250 mg PO TID bupropion HCl 75 mg tablet 75 mg PO BID spironolactone 25 mg tablet 25 mg PO DAILY metoprolol succinate 50 mg tablet extended release 24 hr 50 mg PO DAILY sucralfate 1 gram Tablet 1 g PO TIDAC Qty: 0 0RF pantoprazole [Protonix] 40 mg tablet,delayed release (DR/EC) 40 mg PO BID 56 Days Qty: 112 0RF Referrals / Follow Up: Santino Long MD [Primary Care Provider] - Disposition Disposition (needs filled in before D/C Order can be placed):
--- NOTE | 2024-03-27 13:34 | MDS.RN ---
Information for the MDS was obtained from review of the clinical record, interview of resident, staff, and direct observation of resident?s care.
== END 2024-03-18 13:10 | DRG 377 ==
PROVIDERS: Admitting Provider Family Medicine Geriatric Medicine; PCP Internal Medicine; Referring Provider Family Medicine Geriatric Medicine; Visit Provider Family Medicine Geriatric Medicine
DX: K55.21 Angiodysplasia of colon with hemorrhage (principal); J96.01 Acute respiratory failure with hypoxia; D62 Acute posthemorrhagic anemia; I42.9 Cardiomyopathy, unspecified; I48.19 Other persistent atrial fibrillation; I50.22 Chronic systolic (congestive) heart failure; I13.0 Hypertensive heart and chronic kidney disease with heart failure and stage 1 through stage 4 chronic kidney disease, or unspecified chronic kidney disease; B35.4 Tinea corporis; Z51.5 Encounter for palliative care; J44.9 Chronic obstructive pulmonary disease, unspecified; N18.30 Chronic kidney disease, stage 3 unspecified; M06.9 Rheumatoid arthritis, unspecified; F32.A Depression, unspecified; K26.9 Duodenal ulcer, unspecified as acute or chronic, without hemorrhage or perforation; I25.10 Atherosclerotic heart disease of native coronary artery without angina pectoris; K52.9 Noninfective gastroenteritis and colitis, unspecified; K44.9 Diaphragmatic hernia without obstruction or gangrene; Z87.891 Personal history of nicotine dependence; Z86.16 Personal history of COVID-19; Z87.01 Personal history of pneumonia (recurrent); Z79.01 Long term (current) use of anticoagulants; Z79.899 Other long term (current) drug therapy
CPT/HCPCS: 36415; 80048; 85025; 92526; 92610; 94640; 97162; 97166; 97530